=== PATIENT | female | born 1965 | race Caucasian/White ===

== ENCOUNTER 2016-10-14 | Outpatient (CLI) | payer MEDICARE, MEDICAID | END 2016-10-14 06:03 | disposition critical access hospital (66) | CPT/HCPCS: A0425; A0429 ==

== ENCOUNTER 2016-10-14 06:18 | Observation (INO) | payer MEDICARE, MEDICAID ==
[2016-10-14] MEDS ORDERED: oxyCOD/ACETAMIN 5 MG/325 MG TABLET PO STA (07:08)
[2016-10-14] MEDS ORDERED: ONDANSETRON 4 MG/2 ML VIAL IVP STA ×2 (07:08→08:54)
[2016-10-14] MEDS ORDERED: ONDANSETRON 4 MG/2 ML VIAL ONE ×2 (07:14→08:55)
[2016-10-14] MEDS ORDERED: oxyCOD/ACETAMIN 5 MG/325 MG TABLET PO ONE (07:14)
[2016-10-14] MEDS ORDERED: cefTRIAXone 1 GM in SODIUM CHLORIDE 0.9% MINIBAG 100 ML IV STA (07:27)
[2016-10-14] MEDS ORDERED: cefTRIAXone 1 GM VIAL ONE (07:55)
[2016-10-14] MEDS ORDERED: SODIUM CHLORIDE 0.9% 1,000 ML IV ONE (08:13)
[2016-10-14] MEDS ORDERED: POTASSIUM BICARB 25 MEQ TABLET PO STA (08:45)
[2016-10-14] MEDS ORDERED: POTASSIUM CHLOR 10 MEQ/100 ML 100 ML IV ONE (09:44)
[2016-10-14] MEDS ORDERED: PHENYTOIN 100 MG/2 ML VIAL IVP STA (10:00)
[2016-10-14] MEDS ORDERED: HYDROcod/ACETAM 5/325 MG TABLET PO PRN (10:25)
[2016-10-14] MEDS ORDERED: ACETAMINOPHEN 325 MG TABLET PO PRN (10:25)
[2016-10-14] MEDS: POTASSIUM CHLOR 10 MEQ/100 ML 100 ML IV SCH ×12 (10:28→23:01)
[2016-10-14] MEDS ORDERED: BUTALB/ACETAM/CAFF 50/325/40MG TABLET PO PRN ×2 (10:32→14:46)
[2016-10-14] MEDS ORDERED: oxyCODONE 5 MG TABLET PO PRN (10:32)
[2016-10-14] MEDS ORDERED: PHENYTOIN INJ 1,000 MG in SODIUM CHLORIDE 0.9% 100ML 100 ML IV STA (10:36)
[2016-10-14] MEDS ORDERED: FLUoxetine 10 MG CAPSULE PO SCH (11:00)
[2016-10-14] MEDS ORDERED: PHENYTOIN ER 100 MG CAPSULE PO SCH ×2 (11:00→21:00)
[2016-10-14] MEDS ORDERED: CARVEDILOL 3.125 MG TABLET PO SCH (11:00)
[2016-10-14] MEDS ORDERED: amLODIPine 5 MG TABLET PO SCH (11:00)
[2016-10-14] MEDS ORDERED: GEMFIBROZIL 600 MG TABLET PO SCH (12:00)
[2016-10-14] MEDS ORDERED: GABAPENTIN 300 MG CAPSULE PO SCH (13:00)
[2016-10-14] MEDS: HYDROmorphone 1 MG/ML SYRINGE IVP PRN ×2 (13:16→18:41)
[2016-10-14] MEDS: SODIUM CHLORIDE FLUSH 0.9% 10 ML SYRINGE IVP PRN ×2 (13:16→16:29)
[2016-10-14] MEDS: levETIRAcetam 250 MG TABLET PO SCH ×2 (13:22→20:50)
[2016-10-14] MEDS: LEVOTHYROXINE 25 MCG TABLET PO SCH (13:23)
[2016-10-14] MEDS: NS W/20 MEQ KCL 1,000 ML IV SCH (13:31)
[2016-10-14] MEDS: ENOXAPARIN 40 MG/0.4 ML SYRINGE SUBQ SCH (13:32)
[2016-10-14] MEDS: METHOCARBAMOL 500 MG TABLET PO SCH ×3 (14:31→20:50)
[2016-10-14] MEDS ORDERED: fentaNYL 50 MCG PATCH TOP SCH (15:00)
[2016-10-14] MEDS: SODIUM CHLORIDE FLUSH 0.9% 10 ML SYRINGE IVP SCH ×2 (16:23→21:57)
[2016-10-14] MEDS: PREGABALIN 100 MG CAPSULE PO SCH ×2 (16:28→22:46)
[2016-10-14] MEDS: ONDANSETRON 4 MG/2 ML VIAL IVP PRN ×2 (16:28→21:57)
[2016-10-14] MEDS ORDERED: MIN OIL/DIMETHICON/COCONUT OIL 92 GM TUBE TOP PRN (18:35)
[2016-10-14] MEDS: CARVEDILOL 3.125 MG TABLET PO SCH (20:49)
[2016-10-14] MEDS: NYSTATIN CREAM 15 GM TUBE TOP SCH (21:09)
[2016-10-15] MEDS: HYDROmorphone 1 MG/ML SYRINGE IVP PRN
[2016-10-15] MEDS: NS W/20 MEQ KCL 1,000 ML IV SCH ×2 (00:09→06:17)
[2016-10-15] MEDS: ONDANSETRON 4 MG/2 ML VIAL IVP PRN (04:22)
[2016-10-15] MEDS: HYDROcod/ACETAM 10 MG/325 MG TABLET PO PRN ×2 (05:14→09:20)
[2016-10-15] MEDS: LEVOTHYROXINE 25 MCG TABLET PO SCH (06:17)
[2016-10-15] MEDS: PREGABALIN 100 MG CAPSULE PO SCH (06:17)
[2016-10-15] MEDS: SODIUM CHLORIDE FLUSH 0.9% 10 ML SYRINGE IVP SCH (06:31)
[2016-10-15] MEDS ORDERED: PANTOPRAZOLE 40 MG TABLET PO SCH (07:00)
[2016-10-15] MEDS ORDERED: BUTALB/ACETAM/CAFF 50/325/40MG TABLET PO SCH (07:00)
[2016-10-15] MEDS ORDERED: POLYETHYLENE GLYCOL 3350 17 GM PACKET PO SCH (09:00)
[2016-10-15] MEDS ORDERED: LORATADINE 10 MG TABLET PO SCH (09:00)
[2016-10-15] MEDS: METHOCARBAMOL 500 MG TABLET PO SCH (09:16)
[2016-10-15] MEDS: levETIRAcetam 250 MG TABLET PO SCH (09:16)
[2016-10-15] MEDS: CARVEDILOL 3.125 MG TABLET PO SCH (09:18)
[2016-10-15] MEDS: ENOXAPARIN 40 MG/0.4 ML SYRINGE SUBQ SCH (09:19)
[2016-10-15] MEDS: NYSTATIN CREAM 15 GM TUBE TOP SCH (11:44)
== END 2016-10-15 13:00 | disposition home or self-care (01) ==
DX: E87.6 Hypokalemia (principal); G40.909 Epilepsy, unspecified, not intractable, without status epilepticus; E86.0 Dehydration; H66.002 Acute suppurative otitis media without spontaneous rupture of ear drum, left ear; E03.9 Hypothyroidism, unspecified; R11.2 Nausea with vomiting, unspecified; G89.29 Other chronic pain; M54.9 Dorsalgia, unspecified; M25.552 Pain in left hip; L40.9 Psoriasis, unspecified; I67.83 Posterior reversible encephalopathy syndrome; E78.5 Hyperlipidemia, unspecified; G93.89 Other specified disorders of brain; E55.9 Vitamin D deficiency, unspecified; I10 Essential (primary) hypertension; Z85.43 Personal history of malignant neoplasm of ovary; Z90.710 Acquired absence of both cervix and uterus; Z92.21 Personal history of antineoplastic chemotherapy; Z92.3 Personal history of irradiation; Z96.642 Presence of left artificial hip joint; Z86.19 Personal history of other infectious and parasitic diseases
CPT/HCPCS: 36415; 71020; 72100; 80048; 80053; 80177; 80185; 81001; 82550; 82553; 83690; 83735; 84100; 84443; 84484; 85025; 87150; 96361; 96365; 96372; 96375; 96376; 99285; A6250; A9270; G0378; J1170; J1650

== ENCOUNTER 2017-01-22 22:18 | Outpatient (CLI) | payer MEDICARE, MEDICAID | END 2017-01-22 22:19 | disposition critical access hospital (66) | LOC: EMS 22:18 | PROVIDERS: ATTEND Surgery | DX: R10.30 Lower abdominal pain, unspecified (principal); R11.10 Vomiting, unspecified | CPT/HCPCS: A0425; A0429 ==

== ENCOUNTER 2017-01-22 22:34 | Inpatient (IN) | payer MEDICARE, MEDICAID ==
[2017-01-22] MEDS ORDERED: ONDANSETRON 4 MG/2 ML VIAL ONE (22:39)
[2017-01-22] MEDS ORDERED: MORPHINE 2 MG/ML SYRINGE IVP STA (22:41)
[2017-01-22] MEDS ORDERED: SODIUM CHLORIDE 0.9% 1,000 ML IV ONE (22:41)
[2017-01-22] MEDS ORDERED: ONDANSETRON 4 MG/2 ML VIAL IVP STA (22:41)
[2017-01-22] MEDS ORDERED: MORPHINE 2 MG/ML SYRINGE ONE (23:08)
[2017-01-22 23:18] LABS: BASOPHILS # (AUTO) 0.1 10^3/uL (0.0-0.1); BASOPHILS % (AUTO) 0.6 %; EOSINOPHILS # (AUTO) 0.3 10^3/uL (0.0-0.7); EOSINOPHILS % (AUTO) 1.9 %; HCT - HEMATOCRIT 43.6 % (37.0-47.0); HGB - HEMOGLOBIN 14.7 g/dL (12.0-16.0); LYMPHOCYTES # (AUTO) 2.5 10^3/uL (1.5-3.5); LYMPHOCYTES % (AUTO) 15.5 %; MEAN CORPUSCULAR HEMOGLOBIN 29.7 pg (27.0-31.0); MEAN CORPUSCULAR HGB CONC 33.8 g/dL (32.0-36.0); MEAN CORPUSCULAR VOLUME 87.8 fL (81.0-99.0); MEAN PLATELET VOLUME 8.2 fL (7.9-10.8); MONOCYTES # (AUTO) 0.8 10^3/uL (0.0-1.0); MONOCYTES % (AUTO) 5.1 %; NEUTROPHILS # (AUTO) 12.4 10^3/uL (1.5-6.6); NEUTROPHILS % (AUTO) 76.9 %; RED BLOOD COUNT 4.97 10^6/uL (4.20-5.40); RED CELL DISTRIBUTION WIDTH 12.9 % (12.0-15.0); UNCORRECTED WHITE BLOOD COUNT 16.2 x10^3/uL; WHITE BLOOD COUNT 16.2 x10^3/uL (4.8-10.8)
[2017-01-22 23:33] LABS: ALBUMIN/GLOBULIN RATIO 1.3 (1.0-2.2); BILIRUBIN,TOTAL 0.7 mg/dL (0.2-1.0); CALCIUM 9.8 mg/dL (8.5-10.3); CREATININE 0.7 mg/dL (0.4-1.0); PHOSPHORUS 3.6 mg/dL (2.5-4.6); POTASSIUM 3.7 mmol/L (3.5-5.0); TOTAL PROTEIN 7.7 g/dL (6.7-8.2)
[2017-01-22 23:49] LABS: BILIRUBIN,URINE NEGATIVE (NEGATIVE)
[2017-01-22 23:54] LABS: UA w/ MICROSCOPIC CHARGE YES
[2017-01-22 23:57] LABS: UR CULTURE IF IND INDICATED; WBC,URINE >25 /HPF (0-5)
[2017-01-23] MEDS ORDERED: CEPHALEXIN 250 MG CAPSULE PO STA (01:26)
[2017-01-23] MEDS ORDERED: CEPHALEXIN 250 MG CAPSULE PO ONE (01:35)
[2017-01-23] MEDS ORDERED: ONDANSETRON ODT 4 MG TABLET TL STA (01:39)
[2017-01-23] MEDS ORDERED: ONDANSETRON ODT 4 MG TABLET ONE (01:39)
--- NOTE | 2017-01-23 01:43 | CT Preliminary Report ---
Exam: CT Abdomen/Pelvis W/O IMPRESSION: 1. 3 mm nonobstructing superior left renal stone. No right-sided renal stones. No obstructing uretera l stones. 2. Gallbladder and uterus are surgically absent. 3. Cluster of mildly prominent small bowel loops measuring up to 2.8 cm the left mid abdomen. No foca l transition point. Findings are nonspecific but could represent an ileus or early obstruction. [facility] SITE ID: [id number]
[2017-01-23] MEDS ORDERED: BUTALB/ACETAM/CAFF 50/325/40MG TABLET PO PRN (02:02)
[2017-01-23] MEDS ORDERED: traZODone 50 MG TABLET PO PRN (02:02)
[2017-01-23] MEDS ORDERED: ACETAMINOPHEN 325 MG TABLET PO PRN (02:03)
[2017-01-23] MEDS ORDERED: TEMAZEPAM 15 MG CAPSULE PO PRN (02:03)
[2017-01-23] MEDS ORDERED: PROMETHAZINE 25 MG/1 ML VIAL IM PRN (02:03)
--- NOTE | 2017-01-23 02:39 | ED Physician Documentation ---
PD HPI ABD PAIN - Stated complaint Stated Complaint: ABD PAIN - Chief complaint Chief Complaint: Abd Pain - History obtained from History obtained from: Patient, EMS - History of Present Illness Timing - onset: How many hours ago (2) Timing - details: Abrupt onset, Still present Quality: Cramping, Aching, Sharp Location: Epigastric, Suprapubic Worsened by: Eating, Palpation Associated symptoms: Nausea, Vomiting. No: Fever, Hematemesis, Diarrhea, Constipation Similar symptoms before: Work up / diagnostics, Treatment Recently seen: Not recently seen - Additional information Additional information: Patient is a 51 year old female with mulitple comorbidities including persistent osteo, ovarian cancer and status post hysterectomy, appendectomy and cholecystectomy who is currently on day 4 of antibiotics for uti. Patient came to the emergency department today for abdominal pain. Patient states that the pain started about an hour ago and she has had four episodes of vomiting. Patient states that she had one normal bowel movement earlier in the day. Review of Systems Constitutional: denies: Fever, Chills Eyes: denies: Loss of vision Ears: denies: Ear pain, Drainage/discharge Nose: denies: Rhinorrhea / runny nose, Congestion, Epistaxis Throat: denies: Dental pain / toothache, Oral lesions / sores Cardiac: denies: Chest pain / pressure, Palpitations Respiratory: denies: Cough, Wheezing GI: reports: Abdominal Pain, Nausea, Vomiting. denies: Constipation, Diarrhea : reports: Dysuria, Frequency Skin: denies: Rash, Lesions Musculoskeletal: denies: Neck pain, Back pain, Extremity pain Neurologic: denies: Generalized weakness, Focal weakness Psychiatric: denies: Depressed, Suicidal PD PAST MEDICAL HISTORY - Past Medical History Cardiovascular: High cholesterol Respiratory: Asthma, Pneumonia Neuro: CVA, Headache/migraine, Head injury, Seizure disorder, Other Endocrine/Autoimmune: HyPOthyroidism, Other GI: C.difficile BOBBIN WASHER: None : Renal insuffiency, Kidney stones HEENT: None Psych: Depression Musculoskeletal: Osteoarthritis, Chronic back pain, Other Derm: Other drug resistant infections - Past Surgical History Past Surgical History: Yes General: Appendectomy Ortho: Hip replacement, Spine surgery /BOBBIN WASHER: 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, Oophrectomy - Present Medications Home Medications: Ambulatory Orders Medication Instructions Recorded Confirmed Butalb/Acetam/Caff 50/325/40 1 each PO Q6H PRN 04/04/13 01/23/17 [Fioricet] Cetirizine HCl 10 mg PO DAILY PRN 10/14/16 01/23/17 Fluticasone [Flonase] 1 spray LINDSEY DAILY 10/14/16 01/23/17 Oxycodone HCl/Acetaminophen 0.25 - 1 tab PO Q4H PRN 10/14/16 01/23/17 [Percocet 5-325 mg Tablet] traZODone [Desyrel] 50 - 150 mg PO QPM PRN 10/14/16 01/23/17 Acetaminophen [Tylenol] 650 mg PO Q4HR PRN #0 tablet 10/15/16 01/23/17 Carvedilol [Coreg] 6.25 mg PO BID tablet 10/15/16 01/23/17 Methocarbamol [Robaxin] 750 mg PO QID tablet 10/15/16 01/23/17 Phenytoin [Dilantin] 400 mg PO QPM capsule 10/15/16 01/23/17 Polyethylene Glycol 3350 [Miralax] 17 gm PO DAILY packet 10/15/16 01/23/17 Pregabalin [Lyrica] 100 mg PO TID capsule 10/15/16 01/23/17 fentaNYL 50 MCG PATCH [Duragesic 1 patch TOP Q72H patch 10/15/16 01/23/17 50mcg patch] levETIRAcetam [Keppra] 1,500 mg PO BID tablet 10/15/16 01/23/17 Bromelains 2 tab PO DAILY 01/23/17 01/23/17 Chlorthalidone 25 mg ORAL DAILY 01/23/17 01/23/17 FLUoxetine [PROzac] 20 mg PO DAILY 01/23/17 01/23/17 Gemfibrozil 600 mg PO BID 01/23/17 01/23/17 Loperamide [Imodium] 2 mg PO PRN 01/23/17 Omeprazole 20 mg ORAL DAILY 01/23/17 01/23/17 Omeprazole [PriLOSEC] 20 mg PO DAILY 01/23/17 01/23/17 Prochlorperazine Maleate 8 mg PO TID 01/23/17 01/23/17 [Compazine] amLODIPine [Norvasc] 10 mg PO DAILY 01/23/17 01/23/17 diphenhydrAMINE [Benadryl] 25 mg PO ONCE 01/23/17 01/23/17 - Allergies Allergies/Adverse Reactions: Allergies Allergy/AdvReac Type Severity Reaction Status Date / Time Penicillins Allergy Severe Respiratory Verified 01/22/17 22:36 bacitracin Allergy Mild Hives Verified 01/22/17 22:36 [From Neosporin ([id number])] bacitracin zinc * Allergy Mild Itching Verified 01/22/17 22:36 [From Neosporin ([id number])] neomycin sulfate * Allergy Mild Itching Verified 01/22/17 22:36 [From Neosporin ([id number])] venom-honey bee Allergy Unknown Verified 01/22/17 22:36 [bee venom (honey bee)] ciprofloxacin AdvReac Emesis Verified 01/22/17 22:36 - Social History Does the pt smoke?: No Smoking Status: Former smoker Does the pt drink ETOH?: No Does the pt have substance abuse?: No - Immunizations Immunizations are current?: Yes - POLST Patient has POLST: No POLST Status: Full Code PD ED PE NORMAL - Vitals Vital signs reviewed: Yes - General General: Alert and oriented X 3, Well developed/nourished - HEENT HEENT: Atraumatic, PERRL - Neck Neck: Supple, no meningeal sign, No JVD - Cardiac Cardiac: RRR, No murmur - Respiratory Respiratory: No respiratory distress - Derm Derm: Warm and dry - Extremities Extremities: No deformity, No tenderness to palpate, No calf tenderness / cord - Neuro Neuro: Alert and oriented X 3, No motor deficit, No sensory deficit, Normal speech - Psych Psych: Normal mood, Normal affect PD ED PE EXPANDED - General General: In Pain - Abdomen Abdomen: Tender to palpation, Epigastric, Periumbilical, Surgical scars. No: Rebound, Guarding - Derm Derm: Rash (consistent with psoriasis), Other (very tough skin, with multiple patches) Results - Vitals Vitals: Vital Signs - 24 hr 01/22/17 01/22/17 22:36 23:52 Temperature 36.3 C L Heart Rate 59 L 57 L Respiratory 18 18 Rate Blood Pressure 145/77 H 146/76 H O2 Saturation 100 100 Oxygen O2 Source Room air - Labs Labs: Laboratory Tests 01/22/17 01/22/1717 23:09 23:09 23:09 WBC 16.2 H RBC 4.97 Hgb 14.7 Hct 43.6 MCV 87.8 MCH 29.7 MCHC 33.8 RDW 12.9 Plt Count 353 MPV 8.2 Neut # 12.4 H Lymph # 2.5 [place] # 0.8 Eos # 0.3 Baso # 0.1 Absolute Nucleated RBC 0.00 Nucleated RBCs 0.0 Sodium 136 Potassium 3.7 Chloride 100 L Carbon Dioxide 25 Anion Gap 11.0 BUN 25 H Creatinine 0.7 Estimated GFR (MDRD) 88 L Glucose 135 H Lactic Acid Calcium 9.8 Phosphorus 3.6 Magnesium 2.0 Total Bilirubin 0.7 AST 36 ALT 34 Alkaline Phosphatase 121 Troponin I < 0.04 Total Protein 7.7 Albumin 4.4 Globulin 3.3 Albumin/Globulin Ratio 1.3 Lipase 46 Urine Color Urine Clarity Urine pH Ur Specific Nabb Urine Protein Urine Glucose (UA) Urine Ketones Urine Occult Blood Urine Nitrite Urine Bilirubin Urine Urobilinogen Ur Leukocyte Esterase Urine RBC Urine WBC Ur Squamous Epith Cells Urine Bacteria Urine Casts Ur Microscopic Review Urine Culture Comments 01/22/17 01/22/17 23:09 23:34 WBC RBC Hgb Hct MCV MCH MCHC RDW Plt Count MPV Neut # Lymph # [place] # Eos # Baso # Absolute Nucleated RBC Nucleated RBCs Sodium Potassium Chloride Carbon Dioxide Anion Gap BUN Creatinine Estimated GFR (MDRD) Glucose Lactic Acid 1.4 Calcium Phosphorus Magnesium Total Bilirubin AST ALT Alkaline Phosphatase Troponin I Total Protein Albumin Globulin Albumin/Globulin Ratio Lipase Urine Color YELLOW Urine Clarity HAZY Urine pH 6.0 Ur Specific Nabb 1.020 Urine Protein 30 H Urine Glucose (UA) NEGATIVE Urine Ketones NEGATIVE Urine Occult Blood SMALL H Urine Nitrite POSITIVE H Urine Bilirubin NEGATIVE Urine Urobilinogen 1 (NORMAL) Ur Leukocyte Esterase SMALL H Urine RBC 6-10 H Urine WBC >25 H Ur Squamous Epith Cells FEW Squamous Urine Bacteria Moderate H Urine Casts 3-5 Hyaline Casts Ur Microscopic Review INDICATED Urine Culture Comments INDICATED - Rads (name of study) abdomen and pelvis Radiology: Final report received (findings worsesome for ileus or early sbo), See rad report PD MEDICAL DECISION MAKING - ED course Complexity details: reviewed old records, reviewed results, re-evaluated patient , considered differential, d/w patient, d/w family, d/w internet marketing consultant ED course: Patient was seen and examined at bedside. IV access was gained and labs were drawn. Patient was treated with morphine, fluids and zofran with good relief. patient's urine was consistent with a urinary tract infection, but it would not explain the amount of pain the patient was in. Patient was sent for imaging. when patient returned the results were reviewed. Patient was found to have a partial sbo. Hospitalist was contacted and the case was discussed with him. Patient was admitted under his service for further evaluation and care. Departure - Departure Disposition: ED Place in Observation Clinical Impression: Urinary tract infection, SBO (small bowel obstruction) Condition: Good Discharge Date/Time: 01/23/17 03:33
[2017-01-23] MEDS ORDERED: oxyCOD/ACETAMIN 5 MG/325 MG TABLET PO STA (02:47)
[2017-01-23] MEDS ORDERED: HYDROmorphone 1 MG/ML SYRINGE IM SCH (02:59)
[2017-01-23] MEDS ORDERED: ONDANSETRON 4 MG/2 ML VIAL ONE (03:15)
[2017-01-23] MEDS ORDERED: MORPHINE 2 MG/ML SYRINGE ONE (03:15)
[2017-01-23] MEDS: ONDANSETRON 4 MG/2 ML VIAL IVP PRN ×2 (03:17→14:42)
[2017-01-23] MEDS: MORPHINE 2 MG/ML SYRINGE IVP PRN ×5 (03:17→21:34)
--- NOTE | 2017-01-23 03:18 | HISTORY & PHYSICAL EXAMINATION ---
Chief Complaint - Chief Complaint Chief Complaint: abdominal pain History of Present Illness - Admitted From Admitted From:: emergency department - History Obtained From Records Reviewed: yes History obtained from: patient and medical records Exam Limitations: none - History of Present Illness HPI Comment/Other: The patient is a very unfortunate 51-year-old female with an extensive past medical history including seizure disorder, hypertension, history of ovarian cancer, status post hysterectomy and bilateral oophorectomy in 1995 followed by chemotherapy and radiation, left hip replacement with complication of multiple infections, including infected hardware requiring removal and two further hip replacements with osteomyelitis and long-term antibiotics now off antibiotics and non weight bearing on left, hypothyroidism, chronic pain disorder, psoriasis , history of breast syndrome, history of occipital lobe masses for which she follows with neurology at [facility] who presented to the emergency department with a chief complaint of abdominal pain. She states that she's been having chronic nausea and vomiting for which she has been seeing Dr. Valenzuela at [facility] [place] and has undergone an EGD which did show stomach ulcers and is still undergoing further evaluation. She states that she was in her normal state of health until 5:30 this evening when she states that she started having an acute episode of abdominal pain. She states that the pain is located in the mid abdomen and was associated with nausea and vomiting. She is episodes of vomiting prior to coming to the emergency department. She states the vomitus initially appeared to look like food and then became more bile appearing. She denied having any blood in the vomitus she also denied any coffee -ground emesis. She denies any fevers or chills today. She states that the pain was constant sharp and 10 out of 10 when she finally decided to come into the emergency department. She states that she did have a normal bowel movement yesterday but has not had any bowel movements today. She denies any recent diarrhea. She states that she did see her primary care physician 4 days ago and at that time was diagnosed with a urinary tract infection for which she has been on Levaquin. On presentation to the emergency department the patient was afebrile slightly hypertensive but otherwise vital signs were within normal limits. The patient continued to be in severe pain and required IV Dilaudid in the emergency department with which pain was controlled for a short period of time but the patient continued to have pain 1 the medication wore off. She also continued to be nauseous and required IV antiemetics including Zofran in the emergency department. The patient was quite tender on examination and appear to have some abdominal distention. The patient's lab work a leukocytosis of 16.2, then a lactic acid and slight hypochloremia but otherwise her electrolytes were within normal limits. The patient underwent a CT scan of her abdomen the CT showed a 3 mm nonobstructing superior left renal stone with a cluster of mildly prominent small bowel loops measuring up to 2.8 cm in the left mid abdomen with no focal transition point which could represent ileus or early obstruction. Given the patient's clinical presentation and CT findings it appeared the patient likely has been thoroughly obstruction and was placed in observation for medical management. Review of Systems - Constitutional Constitutional: reports: Poor appetite. denies: Fatigue, Fever, Chills, Malaise , Weakness, Diaphoresis, Night sweats, Weight gain, Weight loss - Eyes Eyes: denies: Pain, Irritation, Amaurosis, Blurred vision, Spots in vision, Field loss, Vision loss, Dipolpia, Corrective lenses, Other - Ears, Nose & Throat Ears, Nose & Throat: denies: Ear pain, Hearing loss, Hearing aids, Tinnitus, Vertigo, Nasal pain, Nasal discharge, Nosebleeds, Nasal obstruction, Nasal congestion, Postnasal drainage, Dentures, Sore throat, Hoarseness, Mouth lesions , Bleeding gums, Dental decay, Dental pain, Other - Cardiovascular Cariovascular: denies: Irregular heart rate, Palpitations, Chest pain, Edema, Lightheadedness, Syncope, Exertional dyspnea, Decr. exercise tolerance, Orthopnea, Other - Respiratory Respiratory: denies: Cough, Sputum production, Wheezing, Snoring, Hemoptysis, Orthopnea, SOB at rest, SOB with exertion, Apnea, Stridor, Pleuritic pain, Other - Gastrointestinal Gastrointestinal: reports: Abdominal pain, Abdominal distention, Nausea, Vomiting, Bile emesis, Poor appetite. denies: Constipation, Diarrhea, Change in bowel habits, Rectal bleeding, Black stools, Bloody stools, Galen blood emesis, Coffee grounds emesis, Bloating - Genitourinary Genitourinary: reports: Frequency. denies: Dysuria, Urgency, Hematuria, Incontinence - Musculoskeletal Musculoskeletal: reports: Back pain, Joint pain (chronic hips bilateral) - Integumentary Integumentary: reports: Dryness, Other (psoriasis). denies: Rash, Pruritis - Neurological Neurological: denies: General weakness, Focal weakness, Headache, Dizziness, Numbness, Memory problems, Pre-existing deficit - Psychiatric Psychiatric: denies: Depression, Anxiety - Endocrine Endocrine: denies: Polyuria, Polydypsia, Polyphagia, Intolerance to cold, Intolerance to heat - Hematologic/Lymphatic Hematologic/Lymphatic: denies: Anemia, Bruising, Petechiae, Blood clots, Lymphadenopathy History - Past Medical History Cardiovascular: reports: Hypertension, High cholesterol Respiratory: reports: Asthma, Pneumonia Neuro: reports: CVA, Headache/migraine, Head injury, Seizure disorder, Other ( History of occipital lobe masses, PRES syndrome) Endocrine/Autoimmune: reports: HyPOthyroidism, Other GI: reports: Ulcers, C.difficile [employer]EL[employer]: reports: Ovarian cancer (s/p hysterectomy and bilateral oopherectomy followed by chemo and radiation in 1995) : reports: Kidney stones HEENT: reports: None Psych: reports: Depression Musculoskeletal: reports: Osteoarthritis (Hip replacement left), Chronic back pain (L4,L5,S1 spinal fusion), Other (Osteomyelitis Chronic of left hip) Derm: reports: Psoriasis MRSA Hx?: No - Past Surgical History General: reports: Appendectomy Ortho: reports: Hip replacement, Spine surgery (L4-S1 spinal fusion) /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 She is living with her daughter and [place]. 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 She was using a walker and and has been nonweightbearing on the left side since her surgeries. - Substance History Use: Uses substance without health or social issues: NONE Abuse: Recurrent use of substance despite neg consequences: NONE Dependence: Experiences withdrawal or developed tolerances: NONE - POLST Patient has POLST: No POLST Status: Full Code Meds/Allgy - Home Medications Home Medications: Ambulatory Orders Medication Instructions Recorded Confirmed Butalb/Acetam/Caff 50/325/40 1 each PO Q6H PRN 04/04/13 01/23/17 [Fioricet] Cetirizine HCl 10 mg PO DAILY PRN 10/14/16 01/23/17 Fluticasone [Flonase] 1 spray LINDSEY DAILY 10/14/16 01/23/17 Oxycodone HCl/Acetaminophen 0.25 - 1 tab PO Q4H PRN 10/14/16 01/23/17 [Percocet 5-325 mg Tablet] traZODone [Desyrel] 50 - 150 mg PO QPM PRN 10/14/16 01/23/17 Acetaminophen [Tylenol] 650 mg PO Q4HR PRN #0 tablet 10/15/16 01/23/17 Carvedilol [Coreg] 6.25 mg PO BID tablet 10/15/16 01/23/17 Methocarbamol [Robaxin] 750 mg PO QID tablet 10/15/16 01/23/17 Phenytoin [Dilantin] 400 mg PO QPM capsule 10/15/16 01/23/17 Polyethylene Glycol 3350 [Miralax] 17 gm PO DAILY packet 10/15/16 01/23/17 Pregabalin [Lyrica] 100 mg PO TID capsule 10/15/16 01/23/17 fentaNYL 50 MCG PATCH [Duragesic 1 patch TOP Q72H patch 10/15/16 01/23/17 50mcg patch] levETIRAcetam [Keppra] 1,500 mg PO BID tablet 10/15/16 01/23/17 Bromelains 2 tab PO DAILY 01/23/17 01/23/17 Chlorthalidone 25 mg ORAL DAILY 01/23/17 01/23/17 FLUoxetine [PROzac] 20 mg PO DAILY 01/23/17 01/23/17 Gemfibrozil 600 mg PO BID 01/23/17 01/23/17 Loperamide [Imodium] 2 mg PO PRN 01/23/17 Omeprazole 20 mg ORAL DAILY 01/23/17 01/23/17 Omeprazole [PriLOSEC] 20 mg PO DAILY 01/23/17 01/23/17 Prochlorperazine Maleate 8 mg PO TID 01/23/17 01/23/17 [Compazine] amLODIPine [Norvasc] 10 mg PO DAILY 01/23/17 01/23/17 diphenhydrAMINE [Benadryl] 25 mg PO ONCE 01/23/17 01/23/17 - Allergies Allergies/Adverse Reactions: Allergies Allergy/AdvReac Type Severity Reaction Status Date / Time Penicillins Allergy Severe Respiratory Verified 01/22/17 22:36 bacitracin Allergy Mild Hives Verified 01/22/17 22:36 [From Neosporin ([id number])] bacitracin zinc * Allergy Mild Itching Verified 01/22/17 22:36 [From Neosporin ([id number])] neomycin sulfate * Allergy Mild Itching Verified 01/22/17 22:36 [From Neosporin ([id number])] venom-honey bee Allergy Unknown Verified 01/22/17 22:36 [bee venom (honey bee)] ciprofloxacin AdvReac Emesis Verified 01/22/17 22:36 Exam - Vital Signs Reviewed Vital Signs: Yes - Physical Exam General Appearance: positive: Alert, Moderate distress (abdominal pain and nausea) Eyes Bilateral: positive: Normal inspection, PERRL, EOMI, No lid inflammation, Conjunctivae nml, No scleral icterus ENT: positive: ENT inspection nml, Pharynx nml, Dry mucous membranes. negative : Purulent nasal drainage, Pharyngeal erythema, Oral lesions Neck: positive: Nml inspection, Thyroid nml, No JVD, Trachea midline. negative : Thyromegaly, Lymphadenopathy (R), Lymphadenopathy (L) Respiratory: positive: Chest non-tender, No respiratory distress, Breath sounds nml. negative: Wheezes, Rales, Rhonchi Cardiovascular: positive: Regular rate & rhythm, No murmur, No gallop Peripheral Pulses: positive: 2+ Abdomen: positive: No organomegaly, Tenderness (mid abdomen just below the umbilicus), Guarding (voluntary), Abnml bowel sounds (hyperactive), Other ( distended mildly). negative: Rebound, Hepatomegaly Back: positive: Nml inspection. negative: CVA tenderness (R), CVA tenderness (L ) Skin: positive: Color nml, Skin rash (psoriatic lesions). negative: Cyanosis, Diaphoresis, Pallor Extremities: positive: No pedal edema, Other (Left hip limited ROM, non weight bearing) Neurologic/Psychiatric: positive: Oriented x3, CN's nml (2-12), Motor nml, Sensation nml, Mood/affect nml Conclusion/Plan - Problem List (1) Abdominal pain Conclusion/Plan: Patient presented with an acute onset of abdominal pain severe in the mid abdomen with associated nausea and vomiting but no fevers or chills. Patient had last normal bowel movement one day earlier no bowel movements today and had mild abdominal distention. Patient had leukocytosis with WBC of 16.2 but no fevers or chills CT of the abdomen revealed mildly prominent small bowel loops measuring up to 2.8 cm in the left mid abdomen with no focal transition point likely representing early obstruction. Patient was requiring IV pain medication and IV emetics for pain control and nausea control. Likely etiology of patient's abdominal pain is a small bowel obstruction given her extensive history of surgeries likely due to adhesions however it appears to be very early on there for there's no distinct transition point seen on the CT scan. Patient could also have gastroenteritis however was not having any fevers or chills. Plan: N.p.o. IV fluids IV pain medication IV antiemetics Placed NG tube if vomiting persists Plan get surgical consult if the patient's symptoms do not improve with medical treatment (2) Urinary tract infection Conclusion/Plan: Patient was diagnosed with a urinary tract infection 4 days earlier and was started on Levaquin but continues to have positive urinary symptoms and grossly positive UA. Plan: The patient will be started on IV ceftriaxone while she is hospitalized We will await urine cultures to de-escalate antibiotics. Qualifiers: Urinary tract infection type: acute cystitis (3) Hypertension Conclusion/Plan: blood pressure elevated on presentation likely secondary to pain Will continue home medications Monitor blood pressure pain control (4) Chronic left hip pain Conclusion/Plan: Patient on chronic pain medication at home including febrile patch and Percocet Patient's left hip pain controlled however on presentation she is uncontrolled abdominal pain. We'll continue home dose of fentanyl We'll place on IV Dilaudid and by mouth oxycodone while hospitalized (5) Hypothyroidism Conclusion/Plan: continue home dose of Synthroid Check TSH (6) Hyperlipidemia Conclusion/Plan: continue home dose of gemfibrozil stable (7) Seizure disorder Conclusion/Plan: decreased seizures threshold secondary to UTI Continue home dose of Keppra and Dilantin Monitor closely (8) Prophylactic use of low molecular weight heparin for venous thromboembolism Conclusion/Plan: placed on Lovenox while hospitalized - Lab Results Lab results reviewed: Yes Fish Bones: 01/22/17 23:01/22/17 23:09 - Diagnostic Imaging Results Diagnostic Imaging Results: positive: Final report reviewed - EKG Results EKG Interpreted Independently: Yes Issues/Core Measures - Anticipated LOS Anticipated Stay Length: Less than 2 midnights - DVT/VTE - Prophylaxis VTE/DVT Prophylaxis med ordered at admit?: Yes
[2017-01-23] MEDS: SODIUM CHLORIDE 0.9% 1,000 ML IV SCH ×3 (03:52→21:39)
[2017-01-23] MEDS: fentaNYL 50 MCG PATCH TOP SCH (04:44)
[2017-01-23] MEDS: PROCHLORPERAZINE 10 MG/2 ML VIAL IVP PRN ×2 (04:44→17:54)
[2017-01-23 06:03] LABS: BASOPHILS # (AUTO) 0.1 10^3/uL (0.0-0.1); BASOPHILS % (AUTO) 0.4 %; EOSINOPHILS # (AUTO) 0.1 10^3/uL (0.0-0.7); EOSINOPHILS % (AUTO) 0.9 %; HGB - HEMOGLOBIN 13.1 g/dL (12.0-16.0); LYMPHOCYTES # (AUTO) 3.1 10^3/uL (1.5-3.5); LYMPHOCYTES % (AUTO) 23.8 %; MEAN CORPUSCULAR HEMOGLOBIN 29.4 pg (27.0-31.0); MEAN CORPUSCULAR HGB CONC 33.6 g/dL (32.0-36.0); MEAN CORPUSCULAR VOLUME 87.4 fL (81.0-99.0); MEAN PLATELET VOLUME 8.7 fL (7.9-10.8); MONOCYTES # (AUTO) 0.8 10^3/uL (0.0-1.0); MONOCYTES % (AUTO) 6.2 %; NEUTROPHILS # (AUTO) 8.8 10^3/uL (1.5-6.6); NEUTROPHILS % (AUTO) 68.7 %; NUCLEATED RED BLOOD CELLS AUTO 0.1 /100WBC; RED BLOOD COUNT 4.46 10^6/uL (4.20-5.40); RED CELL DISTRIBUTION WIDTH 13.2 % (12.0-15.0); UNCORRECTED WHITE BLOOD COUNT 12.9 x10^3/uL; WHITE BLOOD COUNT 12.9 x10^3/uL (4.8-10.8)
[2017-01-23 06:10] LABS: ALBUMIN/GLOBULIN RATIO 1.4 (1.0-2.2); BILIRUBIN,TOTAL 0.5 mg/dL (0.2-1.0); CALCIUM 8.9 mg/dL (8.5-10.3); CREATININE 0.6 mg/dL (0.4-1.0); MAGNESIUM 1.9 mg/dL (1.7-2.8); PHOSPHORUS 3.5 mg/dL (2.5-4.6); POTASSIUM 3.2 mmol/L (3.5-5.0); TOTAL PROTEIN 6.8 g/dL (6.7-8.2)
[2017-01-23] MEDS: PANTOPRAZOLE 40 MG TABLET PO SCH (06:41)
[2017-01-23] MEDS: PREGABALIN 100 MG CAPSULE PO SCH ×3 (06:41→21:29)
[2017-01-23] MEDS: SODIUM CHLORIDE FLUSH 0.9% 10 ML SYRINGE IVP SCH ×3 (06:44→21:37)
[2017-01-23] MEDS ORDERED: LEVOTHYROXINE 25 MCG TABLET PO SCH (07:00)
[2017-01-23] MEDS: METHOCARBAMOL 500 MG TABLET PO SCH ×4 (07:58→21:29)
[2017-01-23] MEDS: FLUTICASONE NASAL SPRAY NAS SCH (07:58)
[2017-01-23] MEDS: ENOXAPARIN 40 MG/0.4 ML SYRINGE SUBQ SCH (07:58)
[2017-01-23] MEDS: POLYETHYLENE GLYCOL 3350 17 GM PACKET PO SCH (07:59)
[2017-01-23] MEDS: LORATADINE 10 MG TABLET PO SCH (07:59)
[2017-01-23] MEDS: CARVEDILOL 3.125 MG TABLET PO SCH ×2 (08:14→21:28)
[2017-01-23] MEDS: cefTRIAXone 1 GM in SODIUM CHLORIDE 0.9% MINIBAG 100 ML IV SCH (08:14)
[2017-01-23] MEDS: levETIRAcetam 250 MG TABLET PO SCH ×2 (08:14→21:27)
[2017-01-23] MEDS: NYSTATIN CREAM 15 GM TUBE TOP SCH ×2 (09:23→21:38)
[2017-01-23] MEDS: oxyCODONE 5 MG TABLET PO PRN ×3 (11:17→21:28)
--- NOTE | 2017-01-23 12:37 | CT Report ---
EXAM: CT ABDOMEN AND PELVIS (CT KUB) EXAM DATE: 01/23/2017 01:00 AM. CLINICAL HISTORY: Lower abdominal pain, leukocytosis, vomiting. COMPARISONS: None. TECHNIQUE: Routine axial helical CT imaging was performed through the abdomen and pelvis without IV c ontrast. Reconstructions: Coronal and sagittal. In accordance with CT protocol optimization, one or more of the following dose reduction techniques w ere utilized for this exam: automated exposure control, adjustment of mA and/or KV based on patient s ize, or use of iterative reconstructive technique. FINDINGS: Lung Bases: Small to moderate hiatal hernia. Lung bases are clear. Right Kidney/Ureter: No stones, hydronephrosis, or hydroureter. No perinephric fat stranding. Left Kidney/Ureter: 3 mm left upper pole nonobstructing stone. Distal left ureter not well-seen due t o streak artifacts from previous hip replacement. No hydronephrosis, hydroureter or perinephric fat s tranding. Other Solid Organs: Noncontrast images of the solid organs are grossly unremarkable. Gallbladder/Bile Ducts: Gallbladder is absent. No common bile duct dilation noted. Peritoneal Cavity: There are several mildly prominent small bowel loops measuring up to 2.8 cm in the left mid abdomen. The more proximal bowel and distal bowel are decompressed. No focal transition is noted. Pelvic Organs: Normal bladder. No bladder stones or calcifications. The uterus is absent. No pelvic m ass or adenopathy. Vasculature: Unremarkable. Other: Previous L5-S1 disk fusion. Previous L5 laminectomy. Status post left hip arthroplasty revisio n stabilized by cerclage wires. No new osteoblastic or osteolytic lesions. IMPRESSION: 1. 3 mm nonobstructing superior left renal stone. No right-sided renal stones. No obstructing uretera l stones. 2. Gallbladder and uterus are surgically absent. 3. Cluster of mildly prominent small bowel loops measuring up to 2.8 cm in the left mid abdomen. No f ocal transition point. Findings are nonspecific but could represent an ileus or early obstruction. [facility] Referring Provider Line: [phone] SITE ID: [id number]
[2017-01-23] MEDS: BUTALB/ACETAM/CAFF 50/325/40MG TABLET PO PRN (15:45)
[2017-01-23] MEDS ORDERED: TAMSULOSIN 0.4 MG CAPSULE PO PRN (17:30)
--- NOTE | 2017-01-23 17:31 | XRAY Preliminary Report ---
Exam: XR Chest for Line Placement IMPRESSION: Right arm PICC line tip overlies right atrium, 2-2.5 cm from cavoatrial junction. Case discussed with Bo Tinoco on day of exam at 5:28 PM. [facility] SITE ID: [id number]
--- NOTE | 2017-01-23 17:33 | XRAY Report ---
EXAM: CHEST RADIOGRAPHY EXAM DATE: 01/23/2017 05:21 PM. CLINICAL HISTORY: PICC @ R Basilic Vein. COMPARISON: Chest x-ray 10/14/2016. TECHNIQUE: 1 view. FINDINGS: Lungs/Pleura: No focal opacities evident. No pleural effusion. No pneumothorax. Mediastinum: Within exam limitations, cardiomediastinal contour is normal. Other: Right arm PICC line tip overlies right atrium, 2-2.5 cm from cavoatrial junction. IMPRESSION: Right arm PICC line tip overlies right atrium, 2-2.5 cm from cavoatrial junction. Case discussed with Bo Tinoco on day of exam at 5:28 PM. [facility] Referring Provider Line: [phone] SITE ID: [id number]
[2017-01-23] MEDS: PHENYTOIN ER 100 MG CAPSULE PO SCH (21:27)
[2017-01-24] MEDS: MORPHINE 2 MG/ML SYRINGE IVP PRN ×5 (00:06→18:02)
[2017-01-24] MEDS: SODIUM CHLORIDE 0.9% 1,000 ML IV SCH ×3 (03:52→21:00)
[2017-01-24] MEDS: BUTALB/ACETAM/CAFF 50/325/40MG TABLET PO PRN ×2 (05:13→21:03)
[2017-01-24] MEDS: oxyCODONE 5 MG TABLET PO PRN ×4 (05:14→21:01)
[2017-01-24] MEDS: SODIUM CHLORIDE FLUSH 0.9% 10 ML SYRINGE IVP SCH ×3 (05:22→21:03)
[2017-01-24 06:10] LABS: BASOPHILS # (AUTO) 0.1 10^3/uL (0.0-0.1); BASOPHILS % (AUTO) 0.8 %; EOSINOPHILS # (AUTO) 0.3 10^3/uL (0.0-0.7); EOSINOPHILS % (AUTO) 3.9 %; HCT - HEMATOCRIT 35.8 % (37.0-47.0); HGB - HEMOGLOBIN 12.1 g/dL (12.0-16.0); LYMPHOCYTES # (AUTO) 3.8 10^3/uL (1.5-3.5); LYMPHOCYTES % (AUTO) 45.7 %; MEAN CORPUSCULAR HEMOGLOBIN 30.1 pg (27.0-31.0); MEAN CORPUSCULAR HGB CONC 33.9 g/dL (32.0-36.0); MEAN CORPUSCULAR VOLUME 88.8 fL (81.0-99.0); MEAN PLATELET VOLUME 8.7 fL (7.9-10.8); MONOCYTES # (AUTO) 0.7 10^3/uL (0.0-1.0); MONOCYTES % (AUTO) 8.6 %; NEUTROPHILS # (AUTO) 3.4 10^3/uL (1.5-6.6); RED BLOOD COUNT 4.04 10^6/uL (4.20-5.40); RED CELL DISTRIBUTION WIDTH 13.1 % (12.0-15.0); UNCORRECTED WHITE BLOOD COUNT 8.4 x10^3/uL; WHITE BLOOD COUNT 8.4 x10^3/uL (4.8-10.8)
[2017-01-24] MEDS: PANTOPRAZOLE 40 MG TABLET PO SCH (06:10)
[2017-01-24] MEDS: PREGABALIN 100 MG CAPSULE PO SCH ×3 (06:10→21:02)
[2017-01-24 06:16] LABS: ALBUMIN/GLOBULIN RATIO 1.5 (1.0-2.2); BILIRUBIN,TOTAL 0.6 mg/dL (0.2-1.0); CALCIUM 8.8 mg/dL (8.5-10.3); CREATININE 0.6 mg/dL (0.4-1.0); MAGNESIUM 1.7 mg/dL (1.7-2.8); PHOSPHORUS 3.6 mg/dL (2.5-4.6); POTASSIUM 3.1 mmol/L (3.5-5.0); TOTAL PROTEIN 6.4 g/dL (6.7-8.2)
[2017-01-24] MEDS: POTASSIUM CHLOR 10 MEQ/100 ML 100 ML IV SCH ×4 (07:00→14:19)
--- NOTE | 2017-01-24 08:21 | PROVIDER PROGRESS NOTE ---
Subjective - Prog Note Date Prog Note Date: 01/24/17 Prog Note Time: 08:21 - Subjective Pt reports feeling: Improved Subjective: she describes a gradually increasing abdominal distention history over the last 2 months. She feels bloated, has increased belching. Bowel movements changed. She usually has diarrhea because of antibiotics for colitis and UTI. But she has noted decreasing bowel movements and actually felt like she was constipated 2 weeks ago. She used an enema. Even after the enema, a bowel movement, she still felt distended and bloated and had an urgent defecate but couldn't quite go to the bathroom. She denies blood in her stool. 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 Her GI was trying to get her to do a gastric emptying study but she could never completed because she would have emesis fci through the food intake. All of this finally crescendoed with the acute onset of abdominal pain with nonstop nausea and vomiting on the day of admission. Last bowel movement was the day before admission. Dr. Hollis is following her and was seen yesterday and today. She continues to have urgency and frequency and dysuria. She had a UTI and was being treated for. She wonders if she could have pyridium Current Medications - Current Medications Current Medications: Active Medications Acetaminophen (Tylenol) 650 mg PO Q4HR PRN PRN Reason: Pain 1 to 4 Acetaminophen/Butalbital/Caffeine (Fioricet) 1 tab PO Q6H PRN PRN Reason: HEADACHE Last Admin: 01/24/17 05:13 Dose: 1 tab Carvedilol (Coreg) 6.25 mg PO BID [facility] Last Admin: 01/23/17 21:28 Dose: 6.25 mg Enoxaparin Sodium (Lovenox) 40 mg SUBQ DAILY [facility] Last Admin: 01/23/17 07:58 Dose: Not Given Fentanyl (Duragesic) 1 patch TOP Q72H [facility] Last Admin: 01/23/17 04:44 Dose: 1 patch Fluticasone Propionate (Flonase) 0 sprays LINDSEY DAILY [facility] Last Admin: 01/23/17 07:58 Dose: Not Given Sodium Chloride (Normal Saline 0.9%) 1,000 mls @ 125 mls/hr IV .Q8H [facility] Last Admin: 01/24/17 03:52 Dose: 125 mls/hr Ceftriaxone Sodium 1 gm/ (Sodium Chloride) 100 mls @ 200 mls/hr IV DAILY [facility] Last Admin: 01/23/17 08:14 Dose: 200 mls/hr Potassium Chloride (Potassium Chloride) 100 mls @ 100 mls/hr IV Q1H [facility] Stop: 01/24/17 10:59 Last Admin: 01/24/17 08:20 Dose: 100 mls/hr Levetiracetam (Keppra) 1,500 mg PO BID [facility] Last Admin: 01/23/17 21:27 Dose: 1,500 mg Loratadine (Claritin) 20 mg PO DAILY [facility] Last Admin: 01/23/17 07:59 Dose: Not Given Methocarbamol (Robaxin) 750 mg PO QID [facility] Last Admin: 01/23/17 21:29 Dose: 750 mg Morphine Sulfate (Morphine) 2 mg IVP Q2HR PRN PRN Reason: Pain 8 to 10 Last Admin: 01/24/17 03:05 Dose: 2 mg Nystatin (Mycostatin Cream) 0 applic TOP BID [facility] Last Admin: 01/23/17 21:38 Dose: Not Given Ondansetron HCl (Zofran Inj) 4 mg IVP Q6HR PRN PRN Reason: Nausea / Vomiting Last Admin: 01/23/17 14:42 Dose: 4 mg Oxycodone HCl (Roxicodone) 5 mg PO Q4HR PRN PRN Reason: Pain 5 to 7 Oxycodone HCl (Roxicodone) 10 mg PO Q4HR PRN PRN Reason: Pain 8 to 10 Last Admin: 01/24/17 05:14 Dose: 10 mg Pantoprazole Sodium (Protonix) 40 mg PO QDAC [facility] Last Admin: 01/24/17 06:10 Dose: 40 mg Phenytoin Sodium (Dilantin) 400 mg PO QPM [facility] Last Admin: 01/23/17 21:27 Dose: 400 mg Polyethylene Glycol (Miralax) 17 gm PO DAILY [facility] Last Admin: 01/23/17 07:59 Dose: Not Given Pregabalin (Lyrica) 100 mg PO TID [facility] Last Admin: 01/24/17 06:10 Dose: 100 mg Prochlorperazine Edisylate (Compazine Inj) 10 mg IVP Q6HR PRN PRN Reason: Nausea / Vomiting Last Admin: 01/23/17 17:54 Dose: 10 mg Promethazine HCl (Phenergan Inj) 25 mg IM Q6HR PRN PRN Reason: Nausea / Vomiting Sodium Chloride (Normal Saline Flush 0.9%) 10 ml IVP PRN PRN PRN Reason: NEEDED PER PROVIDER ORDERS Sodium Chloride (Normal Saline Flush 0.9%) 10 ml IVP Q8HR [facility] Last Admin: 01/24/17 05:22 Dose: 10 ml Tamsulosin HCl (Flomax) 0.4 mg PO DAILY@1730 PRN PRN Reason: KIDNEYSTONE Temazepam (Restoril) 15 mg PO QPM PRN PRN Reason: Insomnia Trazodone HCl (Desyrel) 100 mg PO QPM PRN PRN Reason: SLEEP/CHRONICPAIN Butalb/Acetam/Caff 50/325/40 [Fioricet] 1 tab PO BID PRN 04/04/13 Cetirizine HCl 10 mg PO DAILY PRN 10/14/16 Oxycodone HCl/Acetaminophen [Percocet 5-325 mg Tablet] 0.5 - 1 tab PO TID traZODone [Desyrel] 50 - 150 mg PO QPM PRN 10/14/16 Chlorthalidone 50 mg ORAL DAILY 01/23/17 FLUoxetine [PROzac] 20 mg PO DAILY 01/23/17 Gemfibrozil 600 mg PO BIDAC 01/23/17 Methocarbamol [Methocarbamol] 750 mg PO TID PRN 01/23/17 Omeprazole 20 mg ORAL BIDAC 01/23/17 Prochlorperazine Maleate [Compazine] 10 mg PO TID PRN 01/23/17 Topiramate [Topamax] 25 mg PO QPM 01/23/17 amLODIPine [Norvasc] 10 mg PO DAILY 01/23/17 Objective - Vital Signs/Intake & Output Reviewed Vital Signs: Yes Intake & Output: Intake & Output 01/21/17 01/22/17 01/23/17 01/24/17 23:59 23:59 23:59 23:59 Intake Total 1300 1050 Output Total 700 Balance 1300 350 - Objective General Appearance: positive: No acute distress, Alert, Other (short, abd protuberant, middle aged) Eyes Bilateral: positive: PERRL, EOMI, No scleral icterus ENT: positive: Pharynx nml Neck: positive: No JVD. negative: Stiff neck, Carotid bruit Respiratory: positive: Chest non-tender. negative: Wheezes, Rales, Rhonchi Cardiovascular: positive: Regular rate & rhythm, No murmur. negative: Gallop/S4 , Friction rub Abdomen: positive: No organomegaly, Tenderness (mild and diffuse), Other (bowel sounds present). negative: Guarding, Rebound Skin: positive: Warm, Dry Extremities: positive: No pedal edema Neurologic/Psychiatric: positive: Oriented x3, CN's nml (2-12), Motor nml - Lab Results Fish Bones: 01/24/17 05:20 01/24/17 05:20 Other Labs: Lab Results x24hrs 01/24/17 01/24/17 Range/Units 05:20 05:20 WBC 8.4 (4.8-10.8) x10^3/uL RBC 4.04 L (4.20-5.40) 10^6/uL Hgb 12.1 (12.0-16.0) g/dL Hct 35.8 L (37.0-47.0) % MCV 88.8 (81.0-99.0) fL MCH 30.1 (27.0-31.0) pg MCHC 33.9 (32.0-36.0) g/dL RDW 13.1 (12.0-15.0) % Plt Count 324 (130-450) 10^3/uL MPV 8.7 (7.9-10.8) fL Neut # 3.4 (1.5-6.6) 10^3/uL Lymph # 3.8 H (1.5-3.5) 10^3/uL [place] # 0.7 (0.0-1.0) 10^3/uL Eos # 0.3 (0.0-0.7) 10^3/uL Baso # 0.1 (0.0-0.1) 10^3/uL Absolute Nucleated RBC 0.00 x10^3/uL Nucleated RBCs 0.0 /100WBC Sodium 141 (135-145) mmol/L Potassium 3.1 L (3.5-5.0) mmol/L Chloride 107 (101-111) mmol/L Carbon Dioxide 24 (21-32) mmol/L Anion Gap 10.0 (6-13) BUN 10 (6-20) mg/dL Creatinine 0.6 (0.4-1.0) mg/dL Estimated GFR (MDRD) 105 (>89) Glucose 113 H (70-100) mg/dL Calcium 8.8 (8.5-10.3) mg/dL Phosphorus 3.6 (2.5-4.6) mg/dL Magnesium 1.7 (1.7-2.8) mg/dL Total Bilirubin 0.6 (0.2-1.0) mg/dL AST 28 (10-42) IU/L ALT 30 (10-60) IU/L Alkaline Phosphatase 99 (42-121) IU/L Total Protein 6.4 L (6.7-8.2) g/dL Albumin 3.8 (3.2-5.5) g/dL Globulin 2.6 (2.1-4.2) g/dL Albumin/Globulin Ratio 1.5 (1.0-2.2) Assessment/Plan - Problem List (1) Abdominal pain Impression: Patient presented with an acute onset of abdominal pain severe in the mid abdomen with associated nausea and vomiting but no fevers or chills. Patient had last normal bowel movement one day before admission, no bowel movements since admission and had mild abdominal distention. Patient had leukocytosis with WBC of 16.2 but no fevers or chills CT of the abdomen revealed mildly prominent small bowel loops measuring up to 2.8 cm in the left mid abdomen with no focal transition point likely representing early obstruction. Patient was requiring IV pain medication and IV emetics for pain control and nausea control. Still ongoing. Likely etiology of patient's abdominal pain is a small bowel obstruction given her extensive history of surgeries likely due to adhesions however it appears to be very early on there for there's no distinct transition point seen on the CT scan. Patient could also have gastroenteritis however was not having any fevers or chills. Plan: N.p.o. IV fluids IV pain medication IV antiemetics Placed NG tube if vomitting returns. She really doesn't want it. Agrees if emesis recurs. Surgical consult requested of Dr. Peña and he is recommending expectant observation. Since she did not improve enough to be sent home yesterday, status changed from OBV to inpatient. (2) Urinary tract infection Conclusion/Plan: Patient was diagnosed with a urinary tract infection 4 days earlier and was started on Levaquin in the outpatient setting but continues to have positive urinary symptoms and grossly positive UA. Culture from admission shows enterobacter today and sensitive to levaquin, rocephin, bactrim but resistant to nitrofurantoin Plan: The patient started on IV ceftriaxone Day #2 Pyridium ordered. Transition to po once can eat. Qualifiers: Urinary tract infection type: acute cystitis (3) Hypertension Conclusion/Plan: Systolic blood pressure elevated on presentation likely secondary to pain Today she varies between 105 systolic to 140's Will continue home medications Monitor blood pressure pain control (4) Chronic left hip pain Conclusion/Plan: Patient on chronic pain medication at home including febrile patch and Percocet Patient's left hip pain controlled however on presentation she is uncontrolled abdominal pain. We'll continue home dose of fentanyl We'll place on IV Dilaudid and by mouth oxycodone while hospitalized (5) Hypothyroidism Conclusion/Plan: continue home dose of Synthroid TSH level ordered for tomorrow am (6) Hyperlipidemia Conclusion/Plan: continue home dose of gemfibrozil stable (7) Seizure disorder Conclusion/Plan: decreased seizures threshold secondary to UTI Continue home dose of Keppra and Dilantin Monitor closely
--- NOTE | 2017-01-24 09:03 | XRAY Preliminary Report ---
Exam: XR Abdomen 1 View IMPRESSION: 1. Unremarkable plain film examination of the abdomen. No gross bowel obstruction seen on single view KUB. 2. Exam otherwise as above. [facility] SITE ID: [id number]
--- NOTE | 2017-01-24 09:05 | XRAY Report ---
EXAM: ABDOMEN RADIOGRAPHY EXAM DATE: 01/24/2017 08:49 AM. CLINICAL HISTORY: Sbo. COMPARISON: CT 01/23/2017. TECHNIQUE: 1 view. FINDINGS: Bowel Gas Pattern: Within normal limits. No dilated loops. Fluid-filled prominent small bowel loops v isible on CT are not apparent on plain film exam. Other: Postoperative change at lumbosacral junction from laminectomy and fusion. Cholecystectomy clip s. Total hip replacement on the left. IMPRESSION: 1. Unremarkable plain film examination of the abdomen. No gross bowel obstruction seen on single view KUB. 2. Exam otherwise as above. [facility] Referring Provider Line: [phone] SITE ID: [id number]
--- NOTE | 2017-01-24 09:23 | PROVIDER PROGRESS NOTE ---
Assessment/Plan - Problem List (1) Abdominal pain Assessment/Plan: 51 yo female toribio multiple medical problems with uti & abdominal pain slowly improving Recommend continued NPO IV fluids Serial exams If vomits or abdominal exam worsens will need NGT Primary medical team to manage surgery will continue to follow - Current Meds Current Meds: Current Medications Generic Name Dose Route Start Last Admin Trade Name Freq PRN Reason Stop Dose Admin Acetaminophen/Butalbital/Caffeine 1 tab 01/23/17 05:00 01/24/17 05:13 Fioricet PO 1 tab Q6H PRN Administration HEADACHE Carvedilol 6.25 mg 01/23/17 09:00 01/23/17 21:28 Coreg PO 6.25 mg BID [facility] Administration Enoxaparin Sodium 40 mg 01/23/17 09:00 01/23/17 07:58 Lovenox SUBQ Not Given DAILY [facility] Fentanyl 1 patch 01/23/17 05:00 01/23/17 04:44 Duragesic TOP 1 patch Q72H [facility] Administration Fluticasone Propionate 0 sprays 01/23/17 09:00 01/23/17 07:58 Flonase LINDSEY Not Given DAILY [facility] Sodium Chloride 1,000 mls @ 125 mls/hr 01/23/17 03:00 01/24/17 03:52 Normal Saline 0.9% IV 125 mls/hr .Q8H [facility] Administration Ceftriaxone Sodium 1 gm/ 100 mls @ 200 mls/hr 01/23/17 09:00 01/23/17 08:14 Sodium Chloride IV 200 mls/hr DAILY [facility] Administration Potassium Chloride 100 mls @ 100 mls/hr 01/24/17 07:00 01/24/17 08:20 Potassium Chloride IV 01/24/17 10:59 100 mls/hr Q1H [facility] Administration Levetiracetam 1,500 mg 01/23/17 09:00 01/23/17 21:27 Keppra PO 1,500 mg BID [facility] Administration Loratadine 20 mg 01/23/17 09:00 01/23/17 07:59 Claritin PO Not Given DAILY [facility] Methocarbamol 750 mg 01/23/17 09:00 01/23/17 21:29 Robaxin PO 750 mg QID [facility] Administration Morphine Sulfate 2 mg 01/23/17 02:03 01/24/17 03:05 Morphine IVP 2 mg Q2HR PRN Administration Pain 8 to 10 Nystatin 0 applic 01/23/17 09:00 01/23/17 21:38 Mycostatin Cream TOP Not Given BID [facility] Ondansetron HCl 4 mg 01/23/17 02:03 01/23/17 14:42 Zofran Inj IVP 4 mg Q6HR PRN Administration Nausea / Vomiting Oxycodone HCl 10 mg 01/23/17 02:03 01/24/17 05:14 Roxicodone PO 10 mg Q4HR PRN Administration Pain 8 to 10 Pantoprazole Sodium 40 mg 01/23/17 07:00 01/24/17 06:10 Protonix PO 40 mg QDAC [facility] Administration Phenytoin Sodium 400 mg 01/23/17 21:00 01/23/17 21:27 Dilantin PO 400 mg QPM [facility] Administration Polyethylene Glycol 17 gm 01/23/17 09:00 01/23/17 07:59 Miralax PO Not Given DAILY [facility] Pregabalin 100 mg 01/23/17 06:00 01/24/17 06:10 Lyrica PO 100 mg TID [facility] Administration Prochlorperazine Edisylate 10 mg 01/23/17 02:03 01/23/17 17:54 Compazine Inj IVP 10 mg Q6HR PRN Administration Nausea / Vomiting Sodium Chloride 10 ml 01/23/17 06:00 01/24/17 05:22 Normal Saline Flush 0.9% IVP 10 ml Q8HR [facility] Administration - Lab Result Fish Bone Diagrams: 01/24/17 05:20 01/24/17 05:20 - Diagnostic Imaging Results Diagnostic Imaging Results: positive: Read contemporaneously (01/24/17 KUB IMPRESSION: 1. Unremarkable plain film examination of the abdomen. No gross bowel obstruction seen on single view KUB. 2. Exam otherwise as above.) - Additional Planning Condition/Complexity: Stable My Orders: My Active Orders 01/23/17 16:15 PICC Line Care [RC] Q4H PICC Line Insert [RC] .ONCE Plan Discussed with:: Patient Subjective - Subjective Patient Reports: Feeling Better (Patient seen at bedside. She states the abdominal pain has improved somewhat from yesterday and she didn not really have any Nausea or vomiting overnight. She states the burning with urination has gooten less, though still has urinary frequency. She stated she is unable to ambulate but was sitting in chair yesterday and able to get to bedside commode by herself. No other issues overnight.) Nursing Reports: No Complaints Objective Vital Signs: Vital Signs - 24 hr 01/23/17 01/23/17 01/24/17 15:30 19:49 00:05 Temperature 36.8 C 36.9 C 36.7 C Heart Rate [ 56 L 69 76 Brachial] Respiratory 16 16 17 Rate Blood Pressure 108/71 [Left Brachial artery] Blood Pressure 126/80 105/72 [Right Brachial artery] O2 Saturation 99 98 100 01/24/17 08:05 Temperature 37.1 C Heart Rate [ 54 L Brachial] Respiratory 18 Rate Blood Pressure [Left Brachial artery] Blood Pressure 149/90 H [Right Brachial artery] O2 Saturation 98 Oxygen O2 Source Room air I&O (Last 24 Hrs): Intake and Output Totals x24h 01/22/17 01/23/17 01/24/17 23:59 23:59 23:59 Intake Total 1300 1050 Output Total 700 Balance 1300 350 General: Alert, Oriented x3 HEENT: EOMI Neck: No JVD Neuro: Alert Cardiovascular: Regular rate Respiratory: Breath sounds nml Abdomen: Soft (+BS, soft, ND, No rebound. TTP Right side of abdomen, suprapubic and epigastric regions. Voluntary guarding.) - Results Results: Laboratory Results WBC 8.4 x10^3/uL (4.8-10.8) 01/24/17 05:20 RBC 4.04 10^6/uL (4.20-5.40) L 01/24/17 05:20 Hgb 12.1 g/dL (12.0-16.0) 01/24/17 05:20 Hct 35.8 % (37.0-47.0) L 01/24/17 05:20 MCV 88.8 fL (81.0-99.0) 01/24/17 05:20 MCH 30.1 pg (27.0-31.0) 01/24/17 05:20 MCHC 33.9 g/dL (32.0-36.0) 01/24/17 05:20 RDW 13.1 % (12.0-15.0) 01/24/17 05:20 Plt Count 324 10^3/uL (130-450) 01/24/17 05:20 MPV 8.7 fL (7.9-10.8) 01/24/17 05:20 Neut # 3.4 10^3/uL (1.5-6.6) 01/24/17 05:20 Lymph # 3.8 10^3/uL (1.5-3.5) H 01/24/17 05:20 [place] # 0.7 10^3/uL (0.0-1.0) 01/24/17 05:20 Eos # 0.3 10^3/uL (0.0-0.7) 01/24/17 05:20 Baso # 0.1 10^3/uL (0.0-0.1) 01/24/17 05:20 Absolute Nucleated RBC 0.00 x10^3/uL 01/24/17 05:20 Nucleated RBCs 0.0 /100WBC 01/24/17 05:20 Sodium 141 mmol/L (135-145) 01/24/17 05:20 Potassium 3.1 mmol/L (3.5-5.0) L 01/24/17 05:20 Chloride 107 mmol/L (101-111) 01/24/17 05:20 Carbon Dioxide 24 mmol/L (21-32) 01/24/17 05:20 Anion Gap 10.0 (6-13) 01/24/17 05:20 BUN 10 mg/dL (6-20) 01/24/17 05:20 Creatinine 0.6 mg/dL (0.4-1.0) 01/24/17 05:20 Estimated GFR (MDRD) 105 (>89) 01/24/17 05:20 Glucose 113 mg/dL (70-100) H 01/24/17 05:20 Lactic Acid 1.4 mmol/L (0.5-2.2) 01/22/17 23:09 Calcium 8.8 mg/dL (8.5-10.3) 01/24/17 05:20 Phosphorus 3.6 mg/dL (2.5-4.6) 01/24/17 05:20 Magnesium 1.7 mg/dL (1.7-2.8) 01/24/17 05:20 Total Bilirubin 0.6 mg/dL (0.2-1.0) 01/24/17 05:20 AST 28 IU/L (10-42) 01/24/17 05:20 ALT 30 IU/L (10-60) 01/24/17 05:20 Alkaline Phosphatase 99 IU/L (42-121) 01/24/17 05:20 Troponin I < 0.04 ng/mL (<0.49) 01/22/17 23:09 Total Protein 6.4 g/dL (6.7-8.2) L 01/24/17 05:20 Albumin 3.8 g/dL (3.2-5.5) 01/24/17 05:20 Globulin 2.6 g/dL (2.1-4.2) 01/24/17 05:20 Albumin/Globulin Ratio 1.5 (1.0-2.2) 01/24/17 05:20 Lipase 46 U/L (22-51) 01/22/17 23:09 Urine Color YELLOW 01/22/17 23:34 Urine Clarity HAZY (CLEAR) 01/22/17 23:34 Urine pH 6.0 PH (5.0-7.5) 01/22/17 23:34 Ur Specific [place] 1.020 (1.002-1.030) 01/22/17 23:34 Urine Protein 30 mg/dL (NEGATIVE) H 01/22/17 23:34 Urine Glucose (UA) NEGATIVE mg/dL (NEGATIVE) 01/22/17 23:34 Urine Ketones NEGATIVE mg/dL (NEGATIVE) 01/22/17 23:34 Urine Occult Blood SMALL (NEGATIVE) H 01/22/17 23:34 Urine Nitrite POSITIVE (NEGATIVE) H 01/22/17 23:34 Urine Bilirubin NEGATIVE (NEGATIVE) 01/22/17 23:34 Urine Urobilinogen 1 (NORMAL) E.U./dL (NORMAL) 01/22/17 23:34 Ur Leukocyte Esterase SMALL (NEGATIVE) H 01/22/17 23:34 Urine RBC 6-10 /HPF (0-5) H 01/22/17 23:34 Urine WBC >25 /HPF (0-5) H 01/22/17 23:34 Ur Squamous Epith Cells FEW Squamous (<= Few) 01/22/17 23:34 Urine Bacteria Moderate /HPF (None Seen) H 01/22/17 23:34 Urine Casts 3-5 Hyaline Casts /LPF 01/22/17 23:34 Ur Microscopic Review INDICATED 01/22/17 23:34 Urine Culture Comments INDICATED 01/22/17 23:34 - Procedures Procedures: Procedures INSERTION OF INFUSION DEV INTO SUP VENA CAVA, PERC APPROACH (09/05/15)
[2017-01-24] MEDS: levETIRAcetam 250 MG TABLET PO SCH ×2 (09:50→21:01)
[2017-01-24] MEDS: METHOCARBAMOL 500 MG TABLET PO SCH ×4 (09:52→21:02)
[2017-01-24] MEDS: LORATADINE 10 MG TABLET PO SCH (09:52)
[2017-01-24] MEDS: CARVEDILOL 3.125 MG TABLET PO SCH ×2 (09:53→21:02)
[2017-01-24] MEDS: cefTRIAXone 1 GM in SODIUM CHLORIDE 0.9% MINIBAG 100 ML IV SCH (09:54)
[2017-01-24] MEDS: FLUTICASONE NASAL SPRAY NAS SCH (09:54)
[2017-01-24] MEDS: ENOXAPARIN 40 MG/0.4 ML SYRINGE SUBQ SCH (09:54)
[2017-01-24] MEDS: NYSTATIN CREAM 15 GM TUBE TOP SCH ×2 (09:55→21:03)
[2017-01-24] MEDS: POLYETHYLENE GLYCOL 3350 17 GM PACKET PO SCH (10:02)
[2017-01-24] MEDS: ONDANSETRON 4 MG/2 ML VIAL IVP PRN (13:01)
[2017-01-24] MEDS: PHENAZOPYRIDINE 100 MG TABLET PO SCH ×2 (15:30→21:03)
[2017-01-24] MEDS: PHENYTOIN ER 100 MG CAPSULE PO SCH (21:00)
[2017-01-24] MEDS: PROCHLORPERAZINE 10 MG/2 ML VIAL IVP PRN (21:02)
[2017-01-25] MEDS: oxyCODONE 5 MG TABLET PO PRN ×5 (01:24→23:31)
[2017-01-25] MEDS: MORPHINE 2 MG/ML SYRINGE IVP PRN ×4 (03:59→23:35)
[2017-01-25] MEDS: SODIUM CHLORIDE 0.9% 1,000 ML IV SCH ×3 (05:03→22:26)
[2017-01-25] MEDS: ONDANSETRON 4 MG/2 ML VIAL IVP PRN (05:41)
[2017-01-25] MEDS: SODIUM CHLORIDE FLUSH 0.9% 10 ML SYRINGE IVP PRN (05:46)
[2017-01-25] MEDS: SODIUM CHLORIDE FLUSH 0.9% 10 ML SYRINGE IVP SCH ×3 (05:46→22:56)
[2017-01-25] MEDS: PHENAZOPYRIDINE 100 MG TABLET PO SCH ×3 (05:58→21:26)
[2017-01-25] MEDS: PREGABALIN 100 MG CAPSULE PO SCH ×3 (05:58→21:26)
[2017-01-25] MEDS: PANTOPRAZOLE 40 MG TABLET PO SCH (05:59)
[2017-01-25 06:10] LABS: BASOPHILS # (AUTO) 0.1 10^3/uL (0.0-0.1); BASOPHILS % (AUTO) 0.9 %; EOSINOPHILS # (AUTO) 0.3 10^3/uL (0.0-0.7); EOSINOPHILS % (AUTO) 5.6 %; HCT - HEMATOCRIT 35.9 % (37.0-47.0); LYMPHOCYTES # (AUTO) 2.8 10^3/uL (1.5-3.5); LYMPHOCYTES % (AUTO) 47.7 %; MEAN CORPUSCULAR HEMOGLOBIN 29.7 pg (27.0-31.0); MEAN CORPUSCULAR HGB CONC 33.5 g/dL (32.0-36.0); MEAN CORPUSCULAR VOLUME 88.6 fL (81.0-99.0); MEAN PLATELET VOLUME 8.3 fL (7.9-10.8); MONOCYTES # (AUTO) 0.5 10^3/uL (0.0-1.0); MONOCYTES % (AUTO) 8.5 %; NEUTROPHILS # (AUTO) 2.2 10^3/uL (1.5-6.6); NEUTROPHILS % (AUTO) 37.3 %; NUCLEATED RED BLOOD CELLS AUTO 0.1 /100WBC; RED BLOOD COUNT 4.05 10^6/uL (4.20-5.40); RED CELL DISTRIBUTION WIDTH 13.1 % (12.0-15.0); UNCORRECTED WHITE BLOOD COUNT 5.8 x10^3/uL; WHITE BLOOD COUNT 5.8 x10^3/uL (4.8-10.8)
--- NOTE | 2017-01-25 06:33 | PROVIDER PROGRESS NOTE ---
Assessment/Plan - Problem List (1) Abdominal pain Assessment/Plan: 51 yo female with multiple medical problems with uti & abdominal pain improving passing flatus Clears started Advance diet as tolerated. Primary medical team to manage medical issues - Current Meds Current Meds: Current Medications Generic Name Dose Route Start Last Admin Trade Name Freq PRN Reason Stop Dose Admin Acetaminophen/Butalbital/Caffeine 1 tab 01/23/17 05:00 01/24/17 21:03 Fioricet PO 1 tab Q6H PRN Administration HEADACHE Carvedilol 6.25 mg 01/23/17 09:00 01/24/17 21:02 Coreg PO 6.25 mg BID PADMA Administration Enoxaparin Sodium 40 mg 01/23/17 09:00 01/24/17 09:54 Lovenox SUBQ 40 mg DAILY PADMA Administration Fentanyl 1 patch 01/23/17 05:00 01/23/17 04:44 Duragesic TOP 1 patch Q72H PADMA Administration Fluticasone Propionate 0 sprays 01/23/17 09:00 01/24/17 09:54 Flonase LINDSEY 1 spr DAILY PADMA Administration Sodium Chloride 1,000 mls @ 125 mls/hr 01/23/17 03:00 01/25/17 05:03 Normal Saline 0.9% IV 125 mls/hr .Q8H PADMA Administration Ceftriaxone Sodium 1 gm/ 100 mls @ 200 mls/hr 01/23/17 09:00 01/24/17 09:54 Sodium Chloride IV 200 mls/hr DAILY PADMA Administration Levetiracetam 1,500 mg 01/23/17 09:00 01/24/17 21:01 Keppra PO 1,500 mg BID PADMA Administration Loratadine 20 mg 01/23/17 09:00 01/24/17 09:52 Claritin PO 20 mg DAILY PADMA Administration Methocarbamol 750 mg 01/23/17 09:00 01/24/17 21:02 Robaxin PO 750 mg QID PADMA Administration Morphine Sulfate 2 mg 01/23/17 02:03 01/25/17 03:59 Morphine IVP 2 mg Q2HR PRN Administration Pain 8 to 10 Nystatin 0 applic 01/23/17 09:00 01/24/17 21:03 Mycostatin Cream TOP 1 applic BID PADMA Administration Ondansetron HCl 4 mg 01/23/17 02:03 01/25/17 05:41 Zofran Inj IVP 4 mg Q6HR PRN Administration Nausea / Vomiting Oxycodone HCl 5 mg 01/23/17 02:03 01/25/17 01:24 Roxicodone PO 5 mg Q4HR PRN Administration Pain 5 to 7 Oxycodone HCl 10 mg 01/23/17 02:03 01/25/17 05:58 Roxicodone PO 10 mg Q4HR PRN Administration Pain 8 to 10 Pantoprazole Sodium 40 mg 01/23/17 07:00 01/25/17 05:59 Protonix PO 40 mg QDAC PADMA Administration Phenazopyridine HCl 100 mg 01/24/17 15:00 01/25/17 05:58 Pyridium PO 100 mg TID PADMA Administration Phenytoin Sodium 400 mg 01/23/17 21:00 01/24/17 21:00 Dilantin PO 400 mg QPM PADMA Administration Polyethylene Glycol 17 gm 01/23/17 09:00 01/24/17 10:02 Miralax PO Not Given DAILY PADMA Pregabalin 100 mg 01/23/17 06:00 01/25/17 05:58 Lyrica PO 100 mg TID PADMA Administration Prochlorperazine Edisylate 10 mg 01/23/17 02:03 01/24/17 21:02 Compazine Inj IVP 10 mg Q6HR PRN Administration Nausea / Vomiting Sodium Chloride 10 ml 01/23/17 02:03 01/25/17 05:46 Normal Saline Flush 0.9% IVP 10 ml PRN PRN Administration NEEDED PER PROVIDER ORDERS Sodium Chloride 10 ml 01/23/17 06:00 01/25/17 05:46 Normal Saline Flush 0.9% IVP 10 ml Q8HR PADMA Administration Tamsulosin HCl 0.4 mg 01/23/17 17:30 01/24/17 21:03 Flomax PO 0.4 mg DAILY@1730 PRN Administration KIDNEYSTONE - Lab Result Fish Bone Diagrams: 01/25/17 05:55 01/24/17 05:20 - Additional Planning My Orders: My Active Orders 01/25/17 Lunch Clear Liquid Diet [DIET] Subjective - Subjective Patient Reports: Feeling Better Nursing Reports: No Complaints (pt c/o that she's hungry) Objective Vital Signs: Vital Signs - 24 hr 01/24/17 01/24/17 01/25/17 08:05 15:59 00:42 Temperature 37.1 C 37.0 C 36.8 C Heart Rate [ 54 L 49 L 64 Brachial] Respiratory 18 18 16 Rate Blood Pressure 102/70 [Left Brachial artery] Blood Pressure 149/90 H 115/76 [Right Brachial artery] O2 Saturation 98 98 98 Oxygen O2 Source Room air I&O (Last 24 Hrs): Intake and Output Totals x24h 01/23/17 01/24/17 01/25/17 23:59 23:59 23:59 Intake Total 1300 1050 1049 Output Total 700 Balance 8138 583 0899 General: Oriented x3 Respiratory: Breath sounds nml Abdomen: Normal bowel sounds (+BS, soft, ND, mild tenderness right flank. no rebound no guarding.) - Results Results: Laboratory Results WBC 5.8 x10^3/uL (4.8-10.8) 01/25/17 05:55 RBC 4.05 10^6/uL (4.20-5.40) L 01/25/17 05:55 Hgb 12.0 g/dL (12.0-16.0) 01/25/17 05:55 Hct 35.9 % (37.0-47.0) L 01/25/17 05:55 MCV 88.6 fL (81.0-99.0) 01/25/17 05:55 MCH 29.7 pg (27.0-31.0) 01/25/17 05:55 MCHC 33.5 g/dL (32.0-36.0) 01/25/17 05:55 RDW 13.1 % (12.0-15.0) 01/25/17 05:55 Plt Count 229 10^3/uL (130-450) 01/25/17 05:55 MPV 8.3 fL (7.9-10.8) 01/25/17 05:55 Neut # 2.2 10^3/uL (1.5-6.6) 01/25/17 05:55 Lymph # 2.8 10^3/uL (1.5-3.5) 01/25/17 05:55 [place] # 0.5 10^3/uL (0.0-1.0) 01/25/17 05:55 Eos # 0.3 10^3/uL (0.0-0.7) 01/25/17 05:55 Baso # 0.1 10^3/uL (0.0-0.1) 01/25/17 05:55 Absolute Nucleated RBC 0.00 x10^3/uL 01/25/17 05:55 Nucleated RBCs 0.1 /100WBC 01/25/17 05:55 Sodium 141 mmol/L (135-145) 01/24/17 05:20 Potassium 3.1 mmol/L (3.5-5.0) L 01/24/17 05:20 Chloride 107 mmol/L (101-111) 01/24/17 05:20 Carbon Dioxide 24 mmol/L (21-32) 01/24/17 05:20 Anion Gap 10.0 (6-13) 01/24/17 05:20 BUN 10 mg/dL (6-20) 01/24/17 05:20 Creatinine 0.6 mg/dL (0.4-1.0) 01/24/17 05:20 Estimated GFR (MDRD) 105 (>89) 01/24/17 05:20 Glucose 113 mg/dL (70-100) H 01/24/17 05:20 Lactic Acid 1.4 mmol/L (0.5-2.2) 01/22/17 23:09 Calcium 8.8 mg/dL (8.5-10.3) 01/24/17 05:20 Phosphorus 3.6 mg/dL (2.5-4.6) 01/24/17 05:20 Magnesium 1.7 mg/dL (1.7-2.8) 01/24/17 05:20 Total Bilirubin 0.6 mg/dL (0.2-1.0) 01/24/17 05:20 AST 28 IU/L (10-42) 01/24/17 05:20 ALT 30 IU/L (10-60) 01/24/17 05:20 Alkaline Phosphatase 99 IU/L (42-121) 01/24/17 05:20 Troponin I < 0.04 ng/mL (<0.49) 01/22/17 23:09 Total Protein 6.4 g/dL (6.7-8.2) L 01/24/17 05:20 Albumin 3.8 g/dL (3.2-5.5) 01/24/17 05:20 Globulin 2.6 g/dL (2.1-4.2) 01/24/17 05:20 Albumin/Globulin Ratio 1.5 (1.0-2.2) 01/24/17 05:20 Lipase 46 U/L (22-51) 01/22/17 23:09 Urine Color YELLOW 01/22/17 23:34 Urine Clarity HAZY (CLEAR) 01/22/17 23:34 Urine pH 6.0 PH (5.0-7.5) 01/22/17 23:34 Ur Specific [place] 1.020 (1.002-1.030) 01/22/17 23:34 Urine Protein 30 mg/dL (NEGATIVE) H 01/22/17 23:34 Urine Glucose (UA) NEGATIVE mg/dL (NEGATIVE) 01/22/17 23:34 Urine Ketones NEGATIVE mg/dL (NEGATIVE) 01/22/17 23:34 Urine Occult Blood SMALL (NEGATIVE) H 01/22/17 23:34 Urine Nitrite POSITIVE (NEGATIVE) H 01/22/17 23:34 Urine Bilirubin NEGATIVE (NEGATIVE) 01/22/17 23:34 Urine Urobilinogen 1 (NORMAL) E.U./dL (NORMAL) 01/22/17 23:34 Ur Leukocyte Esterase SMALL (NEGATIVE) H 01/22/17 23:34 Urine RBC 6-10 /HPF (0-5) H 01/22/17 23:34 Urine WBC >25 /HPF (0-5) H 01/22/17 23:34 Ur Squamous Epith Cells FEW Squamous (<= Few) 01/22/17 23:34 Urine Bacteria Moderate /HPF (None Seen) H 01/22/17 23:34 Urine Casts 3-5 Hyaline Casts /LPF 01/22/17 23:34 Ur Microscopic Review INDICATED 01/22/17 23:34 Urine Culture Comments INDICATED 01/22/17 23:34 - Procedures Procedures: Procedures INSERTION OF INFUSION DEV INTO SUP VENA CAVA, PERC APPROACH (09/05/15)
[2017-01-25 06:34] LABS: ALBUMIN/GLOBULIN RATIO 1.4 (1.0-2.2); BILIRUBIN,TOTAL 0.9 mg/dL (0.2-1.0); CALCIUM 8.9 mg/dL (8.5-10.3); CREATININE 0.6 mg/dL (0.4-1.0); MAGNESIUM 1.6 mg/dL (1.7-2.8); PHOSPHORUS 3.7 mg/dL (2.5-4.6); POTASSIUM 3.5 mmol/L (3.5-5.0); TOTAL PROTEIN 6.5 g/dL (6.7-8.2)
--- NOTE | 2017-01-25 08:10 | PROVIDER PROGRESS NOTE ---
Subjective - Prog Note Date Prog Note Date: 01/25/17 Prog Note Time: 12:09 - Subjective Pt reports feeling: Improved Subjective: she is tolerating clear liquids and doing well with that. flatus is frequent. 1 BM. no ABD pain. Current Medications - Current Medications Current Medications: Active Medications Acetaminophen (Tylenol) 650 mg PO Q4HR PRN PRN Reason: Pain 1 to 4 Acetaminophen/Butalbital/Caffeine (Fioricet) 1 tab PO Q6H PRN PRN Reason: HEADACHE Last Admin: 01/24/17 21:03 Dose: 1 tab Carvedilol (Coreg) 6.25 mg PO BID [facility] Last Admin: 01/25/17 10:51 Dose: Not Given Enoxaparin Sodium (Lovenox) 40 mg SUBQ DAILY [facility] Last Admin: 01/25/17 09:23 Dose: 40 mg Fentanyl (Duragesic) 1 patch TOP Q72H [facility] Last Admin: 01/23/17 04:44 Dose: 1 patch Fluticasone Propionate (Flonase) 0 sprays LINDSEY DAILY [facility] Last Admin: 01/25/17 09:25 Dose: 1 spr Sodium Chloride (Normal Saline 0.9%) 1,000 mls @ 125 mls/hr IV .Q8H [facility] Last Admin: 01/25/17 05:03 Dose: 125 mls/hr Ceftriaxone Sodium 1 gm/ (Sodium Chloride) 100 mls @ 200 mls/hr IV DAILY [facility] Last Admin: 01/25/17 09:23 Dose: 200 mls/hr Levetiracetam (Keppra) 1,500 mg PO BID [facility] Last Admin: 01/25/17 09:24 Dose: 1,500 mg Loratadine (Claritin) 20 mg PO DAILY [facility] Last Admin: 01/25/17 09:25 Dose: 20 mg Methocarbamol (Robaxin) 750 mg PO QID [facility] Last Admin: 01/25/17 09:23 Dose: 750 mg Morphine Sulfate (Morphine) 2 mg IVP Q2HR PRN PRN Reason: Pain 8 to 10 Last Admin: 01/25/17 03:59 Dose: 2 mg Nystatin (Mycostatin Cream) 0 applic TOP BID [facility] Last Admin: 01/25/17 09:25 Dose: 1 applic Ondansetron HCl (Zofran Inj) 4 mg IVP Q6HR PRN PRN Reason: Nausea / Vomiting Last Admin: 01/25/17 05:41 Dose: 4 mg Oxycodone HCl (Roxicodone) 5 mg PO Q4HR PRN PRN Reason: Pain 5 to 7 Last Admin: 01/25/17 01:24 Dose: 5 mg Oxycodone HCl (Roxicodone) 10 mg PO Q4HR PRN PRN Reason: Pain 8 to 10 Last Admin: 01/25/17 05:58 Dose: 10 mg Pantoprazole Sodium (Protonix) 40 mg PO QDAC [facility] Last Admin: 01/25/17 05:59 Dose: 40 mg Phenazopyridine HCl (Pyridium) 100 mg PO TID [facility] Last Admin: 01/25/17 05:58 Dose: 100 mg Phenytoin Sodium (Dilantin) 400 mg PO QPM [facility] Last Admin: 01/24/17 21:00 Dose: 400 mg Polyethylene Glycol (Miralax) 17 gm PO DAILY [facility] Last Admin: 01/25/17 09:23 Dose: 17 gm Potassium Chloride (K-Dur) 20 meq PO DAILYWM [facility] Last Admin: 01/25/17 09:24 Dose: 20 meq Pregabalin (Lyrica) 100 mg PO TID [facility] Last Admin: 01/25/17 05:58 Dose: 100 mg Prochlorperazine Edisylate (Compazine Inj) 10 mg IVP Q6HR PRN PRN Reason: Nausea / Vomiting Last Admin: 01/24/17 21:02 Dose: 10 mg Promethazine HCl (Phenergan Inj) 25 mg IM Q6HR PRN PRN Reason: Nausea / Vomiting Sodium Chloride (Normal Saline Flush 0.9%) 10 ml IVP PRN PRN PRN Reason: NEEDED PER PROVIDER ORDERS Last Admin: 01/25/17 05:46 Dose: 10 ml Sodium Chloride (Normal Saline Flush 0.9%) 10 ml IVP Q8HR [facility] Last Admin: 01/25/17 05:46 Dose: 10 ml Tamsulosin HCl (Flomax) 0.4 mg PO DAILY@1730 PRN PRN Reason: KIDNEYSTONE Last Admin: 01/24/17 21:03 Dose: 0.4 mg Temazepam (Restoril) 15 mg PO QPM PRN PRN Reason: Insomnia Trazodone HCl (Desyrel) 100 mg PO QPM PRN PRN Reason: SLEEP/CHRONICPAIN Butalb/Acetam/Caff 50/325/40 [Fioricet] 1 tab PO BID PRN 04/04/13 Cetirizine HCl 10 mg PO DAILY PRN 10/14/16 Oxycodone HCl/Acetaminophen [Percocet 5-325 mg Tablet] 0.5 - 1 tab PO TID traZODone [Desyrel] 50 - 150 mg PO QPM PRN 10/14/16 Chlorthalidone 50 mg ORAL DAILY 01/23/17 FLUoxetine [PROzac] 20 mg PO DAILY 01/23/17 Gemfibrozil 600 mg PO BIDAC 01/23/17 Methocarbamol [Methocarbamol] 750 mg PO TID PRN 01/23/17 Omeprazole 20 mg ORAL BIDAC 01/23/17 Prochlorperazine Maleate [Compazine] 10 mg PO TID PRN 01/23/17 Topiramate [Topamax] 25 mg PO QPM 01/23/17 amLODIPine [Norvasc] 10 mg PO DAILY 01/23/17 Objective - Vital Signs/Intake & Output Reviewed Vital Signs: Yes Vital Signs: Vital Signs x48h Temp Pulse Resp BP Pulse Ox 01/25/17 00:42 36.8 C 64 16 102/70 98 Intake & Output: Intake & Output 01/22/17 01/23/17 01/24/17 01/25/17 23:59 23:59 23:59 23:59 Intake Total 1300 1050 1049 Output Total 700 Balance 2310 527 8427 - Objective General Appearance: positive: No acute distress, Alert, Other (sitting up in bed eating breakfast and is cheerful) Eyes Bilateral: positive: PERRL, EOMI ENT: positive: No signs of dehydration Neck: negative: Stiff neck, Carotid bruit Respiratory: positive: Chest non-tender. negative: Wheezes, Rales, Rhonchi Cardiovascular: positive: Regular rate & rhythm. negative: Gallop/S4, Friction rub Abdomen: positive: Non-tender, Nml bowel sounds, Other (still with mild distension). negative: Guarding, Rebound Skin: positive: Color nml, No rash, Warm, Dry Extremities: positive: Full ROM, No pedal edema Neurologic/Psychiatric: positive: Oriented x3, CN's nml (2-12), Motor nml - Lab Results Fish Bones: 01/25/17 05:55 01/25/17 05:55 Other Labs: Lab Results x24hrs 01/25/17 01/25/17 01/25/17 Range/Units 05:55 05:55 05:55 WBC 5.8 (4.8-10.8) x10^3/uL RBC 4.05 L (4.20-5.40) 10^6/uL Hgb 12.0 (12.0-16.0) g/dL Hct 35.9 L (37.0-47.0) % MCV 88.6 (81.0-99.0) fL MCH 29.7 (27.0-31.0) pg MCHC 33.5 (32.0-36.0) g/dL RDW 13.1 (12.0-15.0) % Plt Count 229 (130-450) 10^3/uL MPV 8.3 (7.9-10.8) fL Neut # 2.2 (1.5-6.6) 10^3/uL Lymph # 2.8 (1.5-3.5) 10^3/uL [place] # 0.5 (0.0-1.0) 10^3/uL Eos # 0.3 (0.0-0.7) 10^3/uL Baso # 0.1 (0.0-0.1) 10^3/uL Absolute Nucleated RBC 0.00 x10^3/uL Nucleated RBCs 0.1 /100WBC Sodium 139 (135-145) mmol/L Potassium 3.5 (3.5-5.0) mmol/L Chloride 105 (101-111) mmol/L Carbon Dioxide 21 (21-32) mmol/L Anion Gap 13.0 (6-13) BUN 13 (6-20) mg/dL Creatinine 0.6 (0.4-1.0) mg/dL Estimated GFR (MDRD) 105 (>89) Glucose 73 (70-100) mg/dL Calcium 8.9 (8.5-10.3) mg/dL Phosphorus 3.7 (2.5-4.6) mg/dL Magnesium 1.6 L (1.7-2.8) mg/dL Total Bilirubin 0.9 (0.2-1.0) mg/dL AST 24 (10-42) IU/L ALT 29 (10-60) IU/L Alkaline Phosphatase 102 (42-121) IU/L Total Protein 6.5 L (6.7-8.2) g/dL Albumin 3.8 (3.2-5.5) g/dL Globulin 2.7 (2.1-4.2) g/dL Albumin/Globulin Ratio 1.4 (1.0-2.2) TSH 4.27 (0.34-5.60) uIU/mL Assessment/Plan - Problem List (1) Abdominal pain Impression: Patient presented with an acute onset of abdominal pain severe in the mid abdomen with associated nausea and vomiting but no fevers or chills. Patient had last normal bowel movement one day before admission, no bowel movements since admission and had mild abdominal distention. Patient had leukocytosis with WBC of 16.2 but no fevers or chills and WBC has comes down to normal since 01/24. Down to 5.[address] of the abdomen revealed mildly prominent small bowel loops measuring up to 2.8 cm in the left mid abdomen with no focal transition point likely representing early obstruction. Patient was requiring IV pain medication and IV emetics for pain control and nausea control. flatus started yesterday and clear liquids started. Likely etiology of patient's abdominal pain is a small bowel obstruction given her extensive history of surgeries likely due to adhesions however it appears to be very early on there for there's no distinct transition point seen on the CT scan. Patient could also have gastroenteritis however was not having any fevers or chills. She never needed NG tube. Plan: Clear liquids today and advance per Surgery. IV fluids IV pain medication IV antiemetics UGI with SBFT in the morning. Ambulate in hernadez and room (2) Urinary tract infection Conclusion/Plan: Patient was diagnosed with a urinary tract infection 4 days earlier and was started on Levaquin in the outpatient setting but continues to have positive urinary symptoms and grossly positive UA. Culture from admission shows enterobacter and sensitive to levaquin, rocephin, bactrim but resistant to nitrofurantoin Plan: The patient started on IV ceftriaxone Day #3 Pyridium ordered. Transition to po keflex today. She was on levaquin before admission. Qualifiers: Urinary tract infection type: acute cystitis (3) Hypertension Conclusion/Plan: Systolic blood pressure elevated on presentation likely secondary to pain In the last 12 hours 93 systolic to 149. no symptoms with the low. Will continue home medications Monitor blood pressure pain control (4) Chronic left hip pain Conclusion/Plan: Patient on chronic pain medication at home including febrile patch and Percocet Patient's left hip pain controlled however on presentation she is uncontrolled abdominal pain. We'll continue home dose of fentanyl We'll place on IV Dilaudid and by mouth oxycodone while hospitalized (5) Hypothyroidism Conclusion/Plan: continue home dose of Synthroid TSH level 4.27 (6) Hyperlipidemia Conclusion/Plan: continue home dose of gemfibrozil stable (7) Seizure disorder Conclusion/Plan: decreased seizures threshold secondary to UTI Continue home dose of Keppra and Dilantin Monitor closely
[2017-01-25] MEDS: POLYETHYLENE GLYCOL 3350 17 GM PACKET PO SCH (09:23)
[2017-01-25] MEDS: ENOXAPARIN 40 MG/0.4 ML SYRINGE SUBQ SCH (09:23)
[2017-01-25] MEDS: METHOCARBAMOL 500 MG TABLET PO SCH ×4 (09:23→20:12)
[2017-01-25] MEDS: cefTRIAXone 1 GM in SODIUM CHLORIDE 0.9% MINIBAG 100 ML IV SCH (09:23)
[2017-01-25] MEDS: levETIRAcetam 250 MG TABLET PO SCH ×2 (09:24→20:10)
[2017-01-25] MEDS: POTASSIUM CHLORIDE 20 MEQ TABLET PO SCH (09:24)
[2017-01-25] MEDS: LORATADINE 10 MG TABLET PO SCH (09:25)
[2017-01-25] MEDS: NYSTATIN CREAM 15 GM TUBE TOP SCH ×2 (09:25→20:13)
[2017-01-25] MEDS: FLUTICASONE NASAL SPRAY NAS SCH (09:25)
[2017-01-25] MEDS: CARVEDILOL 3.125 MG TABLET PO SCH ×2 (10:51→20:13)
[2017-01-25] MEDS: CEPHALEXIN 250 MG CAPSULE PO SCH ×3 (13:45→23:31)
[2017-01-25] MEDS: PROCHLORPERAZINE 10 MG/2 ML VIAL IVP PRN (17:24)
[2017-01-25] MEDS: PHENYTOIN ER 100 MG CAPSULE PO SCH (20:12)
[2017-01-25] MEDS: BUTALB/ACETAM/CAFF 50/325/40MG TABLET PO PRN (21:26)
[2017-01-26] MEDS: ONDANSETRON 4 MG/2 ML VIAL IVP PRN (02:13)
[2017-01-26] MEDS: MORPHINE 2 MG/ML SYRINGE IVP PRN ×3 (02:13→11:45)
[2017-01-26] MEDS: BUTALB/ACETAM/CAFF 50/325/40MG TABLET PO PRN (03:02)
[2017-01-26] MEDS: PHENAZOPYRIDINE 100 MG TABLET PO SCH (05:10)
[2017-01-26] MEDS: fentaNYL 50 MCG PATCH TOP SCH (05:10)
[2017-01-26] MEDS: PREGABALIN 100 MG CAPSULE PO SCH (05:10)
[2017-01-26] MEDS: CEPHALEXIN 250 MG CAPSULE PO SCH ×2 (05:17→11:51)
[2017-01-26] MEDS: oxyCODONE 5 MG TABLET PO PRN ×2 (05:17→12:23)
[2017-01-26 05:53] LABS: BASOPHILS # (AUTO) 0.1 10^3/uL (0.0-0.1); BASOPHILS % (AUTO) 1.1 %; EOSINOPHILS # (AUTO) 0.4 10^3/uL (0.0-0.7); EOSINOPHILS % (AUTO) 4.8 %; HCT - HEMATOCRIT 39.7 % (37.0-47.0); HGB - HEMOGLOBIN 13.3 g/dL (12.0-16.0); LYMPHOCYTES # (AUTO) 3.6 10^3/uL (1.5-3.5); LYMPHOCYTES % (AUTO) 42.8 %; MEAN CORPUSCULAR HEMOGLOBIN 29.5 pg (27.0-31.0); MEAN CORPUSCULAR HGB CONC 33.6 g/dL (32.0-36.0); MEAN CORPUSCULAR VOLUME 87.8 fL (81.0-99.0); MEAN PLATELET VOLUME 8.5 fL (7.9-10.8); MONOCYTES # (AUTO) 0.9 10^3/uL (0.0-1.0); MONOCYTES % (AUTO) 10.8 %; NEUTROPHILS # (AUTO) 3.5 10^3/uL (1.5-6.6); NEUTROPHILS % (AUTO) 40.5 %; NUCLEATED RED BLOOD CELLS AUTO 0.1 /100WBC; RED BLOOD COUNT 4.52 10^6/uL (4.20-5.40); RED CELL DISTRIBUTION WIDTH 13.3 % (12.0-15.0); UNCORRECTED WHITE BLOOD COUNT 8.5 x10^3/uL; WHITE BLOOD COUNT 8.5 x10^3/uL (4.8-10.8)
[2017-01-26] MEDS: PANTOPRAZOLE 40 MG TABLET PO SCH (06:05)
[2017-01-26] MEDS: SODIUM CHLORIDE 0.9% 1,000 ML IV SCH (06:05)
[2017-01-26] MEDS: SODIUM CHLORIDE FLUSH 0.9% 10 ML SYRINGE IVP SCH (06:05)
[2017-01-26 06:19] LABS: ALBUMIN/GLOBULIN RATIO 1.3 (1.0-2.2); BILIRUBIN,TOTAL 0.5 mg/dL (0.2-1.0); CALCIUM 9.8 mg/dL (8.5-10.3); CREATININE 0.6 mg/dL (0.4-1.0); MAGNESIUM 1.5 mg/dL (1.7-2.8); PHOSPHORUS 3.1 mg/dL (2.5-4.6); POTASSIUM 3.5 mmol/L (3.5-5.0); TOTAL PROTEIN 7.3 g/dL (6.7-8.2)
[2017-01-26] MEDS: POTASSIUM CHLORIDE 20 MEQ TABLET PO SCH (08:30)
[2017-01-26] MEDS: METHOCARBAMOL 500 MG TABLET PO SCH (08:32)
[2017-01-26] MEDS: levETIRAcetam 250 MG TABLET PO SCH (08:32)
[2017-01-26] MEDS: LORATADINE 10 MG TABLET PO SCH (08:33)
[2017-01-26] MEDS: CARVEDILOL 3.125 MG TABLET PO SCH (08:33)
[2017-01-26] MEDS: POLYETHYLENE GLYCOL 3350 17 GM PACKET PO SCH (08:34)
[2017-01-26] MEDS: ENOXAPARIN 40 MG/0.4 ML SYRINGE SUBQ SCH (08:34)
[2017-01-26] MEDS: NYSTATIN CREAM 15 GM TUBE TOP SCH (08:34)
[2017-01-26] MEDS: FLUTICASONE NASAL SPRAY NAS SCH (08:35)
[2017-01-26 08:59] VITALS: BP 121/80
--- NOTE | 2017-01-26 11:14 | Discharge Plan ---
Discharge Plan Disposition: Home, Self Care Condition: Good Prescriptions: Cephalexin [Keflex] 250 mg PO Q6HR #16 capsule Potassium Chloride [K-Dur] 20 meq PO DAILYWM #15 tablet Phenazopyridine [Pyridium] 100 mg PO TID #6 tablet Diet: Regular Activity Restrictions: Activity as Tolerated Shower Restrictions: No Driving Restrictions: No Additional Instructions or Follow Up instructions: You were initially placed in observation to see if your early small bowel obstruction would resolve. It didn't; so we needed to change your status to regular inpatient care for the next 3 days. Your bowel was able to open up on its own without having to do surgery. We wanted to do an upper GI with small bowel follow-through on the day of discharge but unfortunately you have had something to eat this morning and the test was canceled. You have an appointment with your primary care provider, INGRID Obrien on Thursday (today is Thursday). Please ask her to schedule an outpatient upper GI with small bowel follow-through. While here you were also diagnosed with a urinary tract infection. The bacteria is sensitive to Keflex. As such we are asking you to finish a few more days of Keflex to complete her therapy No Smoking: If you smoke, Please STOP! Call for help.
[2017-01-26] MEDS: SODIUM CHLORIDE FLUSH 0.9% 10 ML SYRINGE IVP PRN (11:46)
[2017-01-26] MEDS: PROCHLORPERAZINE 10 MG/2 ML VIAL IVP PRN (11:51)
--- NOTE | 2017-01-26 11:56 | PROVIDER PROGRESS NOTE ---
Assessment/Plan - Problem List (1) Abdominal pain Assessment/Plan: 51 yo female with multiple medical problems including abdominal pain which has improved, now having bm's. Patient condition improved, benign abdominal exam. Small bowel follow through to be performed. Pending results likely stable for d/c planning - Current Meds Current Meds: Current Medications Generic Name Dose Route Start Last Admin Trade Name Freq PRN Reason Stop Dose Admin Acetaminophen/Butalbital/Caffeine 1 tab 01/23/17 05:00 01/26/17 03:02 Fioricet PO 1 tab Q6H PRN Administration HEADACHE Carvedilol 6.25 mg 01/23/17 09:00 01/26/17 08:33 Coreg PO 6.25 mg BID PADMA Administration Cephalexin 250 mg 01/25/17 13:00 01/26/17 11:51 Keflex PO 250 mg Q6HR PADMA Administration Enoxaparin Sodium 40 mg 01/23/17 09:00 01/26/17 08:34 Lovenox SUBQ 40 mg DAILY PADMA Administration Fentanyl 1 patch 01/23/17 05:00 01/26/17 05:10 Duragesic TOP 1 patch Q72H PADMA Administration Fluticasone Propionate 0 sprays 01/23/17 09:00 01/26/17 08:35 Flonase LINDSEY 1 spr DAILY [facility] Administration Sodium Chloride 1,000 mls @ 125 mls/hr 01/23/17 03:00 01/26/17 06:05 Normal Saline 0.9% IV 125 mls/hr .Q8H PADMA Administration Levetiracetam 1,500 mg 01/23/17 09:00 01/26/17 08:32 Keppra PO 1,500 mg BID PADMA Administration Loratadine 20 mg 01/23/17 09:00 01/26/17 08:33 Claritin PO 20 mg DAILY [facility] Administration Methocarbamol 750 mg 01/23/17 09:00 01/26/17 08:32 Robaxin PO 750 mg QID PADMA Administration Morphine Sulfate 2 mg 01/23/17 02:03 01/26/17 11:45 Morphine IVP 2 mg Q2HR PRN Administration Pain 8 to 10 Nystatin 0 applic 01/23/17 09:00 01/26/17 08:34 Mycostatin Cream TOP Not Given BID PADMA Ondansetron HCl 4 mg 01/23/17 02:03 01/26/17 02:13 Zofran Inj IVP 4 mg Q6HR PRN Administration Nausea / Vomiting Oxycodone HCl 5 mg 01/23/17 02:03 01/25/17 01:24 Roxicodone PO 5 mg Q4HR PRN Administration Pain 5 to 7 Oxycodone HCl 10 mg 01/23/17 02:03 01/26/17 05:17 Roxicodone PO 10 mg Q4HR PRN Administration Pain 8 to 10 Pantoprazole Sodium 40 mg 01/23/17 07:00 01/26/17 06:05 Protonix PO 40 mg QDAC PADMA Administration Phenazopyridine HCl 100 mg 01/24/17 15:00 01/26/17 05:10 Pyridium PO 100 mg TID PADMA Administration Phenytoin Sodium 400 mg 01/23/17 21:00 01/25/17 20:12 Dilantin PO 400 mg QPM PAD[facility] Administration Polyethylene Glycol 17 gm 01/23/17 09:00 01/26/17 08:34 Miralax PO Not Given DAILY [facility] Potassium Chloride 20 meq 01/25/17 09:00 01/26/17 08:30 K-Dur PO 20 meq DAILYWM PAD[facility] Administration Pregabalin 100 mg 01/23/17 06:00 01/26/17 05:10 Lyrica PO 100 mg TID PADMA Administration Prochlorperazine Edisylate 10 mg 01/23/17 02:03 01/26/17 11:51 Compazine Inj IVP 10 mg Q6HR PRN Administration Nausea / Vomiting Sodium Chloride 10 ml 01/23/17 02:03 01/26/17 11:46 Normal Saline Flush 0.9% IVP 10 ml PRN PRN Administration NEEDED PER PROVIDER ORDERS Sodium Chloride 10 ml 01/23/17 06:00 01/26/17 06:05 Normal Saline Flush 0.9% IVP 10 ml Q8HR PADMA Administration Tamsulosin HCl 0.4 mg 01/23/17 17:30 01/24/17 21:03 Flomax PO 0.4 mg DAILY@1730 PRN Administration KIDNEYSTONE - Lab Result Lab results reviewed: Yes Fish Bone Diagrams: 01/26/17 05:35 01/26/17 05:35 - Additional Planning Condition/Complexity: Stable Subjective - Subjective Patient Reports: Feeling Better, Resting Comfortably (Patient seen at bedside, She states she is feeling much better with occasional right sided pain much improved. She is having BM's and urinating well. No issues reported by RN.) Nursing Reports: No Complaints Objective Vital Signs: Vital Signs - 24 hr 01/25/17 01/26/17 01/26/17 16:00 00:20 08:00 Temperature 36.4 C L 36.9 C 36.5 C Heart Rate [ 70 72 72 Brachial] Respiratory 18 16 16 Rate Blood Pressure 157/92 H 121/80 [Left Brachial artery] Blood Pressure 113/76 [Left Radial artery] O2 Saturation 100 99 98 Oxygen O2 Source Room air I&O (Last 24 Hrs): Intake and Output Totals x24h 01/24/17 01/25/17 01/26/17 23:59 23:59 23:59 Intake Total 1050 2890 1572 Output Total 700 Balance 350 2890 1572 General: Alert, Oriented x3 HEENT: PERRLA, EOMI Neuro: Alert Cardiovascular: Regular rate Respiratory: Breath sounds nml Abdomen: Normal bowel sounds, Soft - Results Results: Laboratory Results WBC 8.5 x10^3/uL (4.8-10.8) 01/26/17 05:35 RBC 4.52 10^6/uL (4.20-5.40) 01/26/17 05:35 Hgb 13.3 g/dL (12.0-16.0) 01/26/17 05:35 Hct 39.7 % (37.0-47.0) 01/26/17 05:35 MCV 87.8 fL (81.0-99.0) 01/26/17 05:35 MCH 29.5 pg (27.0-31.0) 01/26/17 05:35 MCHC 33.6 g/dL (32.0-36.0) 01/26/17 05:35 RDW 13.3 % (12.0-15.0) 01/26/17 05:35 Plt Count 302 10^3/uL (130-450) 01/26/17 05:35 MPV 8.5 fL (7.9-10.8) 01/26/17 05:35 Neut # 3.5 10^3/uL (1.5-6.6) 01/26/17 05:35 Lymph # 3.6 10^3/uL (1.5-3.5) H 01/26/17 05:35 [place] # 0.9 10^3/uL (0.0-1.0) 01/26/17 05:35 Eos # 0.4 10^3/uL (0.0-0.7) 01/26/17 05:35 Baso # 0.1 10^3/uL (0.0-0.1) 01/26/17 05:35 Absolute Nucleated RBC 0.01 x10^3/uL 01/26/17 05:35 Nucleated RBCs 0.1 /100WBC 01/26/17 05:35 Sodium 141 mmol/L (135-145) 01/26/17 05:35 Potassium 3.5 mmol/L (3.5-5.0) 01/26/17 05:35 Chloride 106 mmol/L (101-111) 01/26/17 05:35 Carbon Dioxide 26 mmol/L (21-32) 01/26/17 05:35 Anion Gap 9.0 (6-13) 01/26/17 05:35 BUN 10 mg/dL (6-20) 01/26/17 05:35 Creatinine 0.6 mg/dL (0.4-1.0) 01/26/17 05:35 Estimated GFR (MDRD) 105 (>89) 01/26/17 05:35 Glucose 123 mg/dL (70-100) H 01/26/17 05:35 Lactic Acid 1.4 mmol/L (0.5-2.2) 01/22/17 23:09 Calcium 9.8 mg/dL (8.5-10.3) 01/26/17 05:35 Phosphorus 3.1 mg/dL (2.5-4.6) 01/26/17 05:35 Magnesium 1.5 mg/dL (1.7-2.8) L 01/26/17 05:35 Total Bilirubin 0.5 mg/dL (0.2-1.0) 01/26/17 05:35 AST 20 IU/L (10-42) 01/26/17 05:35 ALT 28 IU/L (10-60) 01/26/17 05:35 Alkaline Phosphatase 121 IU/L (42-121) 01/26/17 05:35 Troponin I < 0.04 ng/mL (<0.49) 01/22/17 23:09 Total Protein 7.3 g/dL (6.7-8.2) 01/26/17 05:35 Albumin 4.1 g/dL (3.2-5.5) 01/26/17 05:35 Globulin 3.2 g/dL (2.1-4.2) 01/26/17 05:35 Albumin/Globulin Ratio 1.3 (1.0-2.2) 01/26/17 05:35 Lipase 46 U/L (22-51) 01/22/17 23:09 TSH 4.27 uIU/mL (0.34-5.60) 01/25/17 05:55 Urine Color YELLOW 01/22/17 23:34 Urine Clarity HAZY (CLEAR) 01/22/17 23:34 Urine pH 6.0 PH (5.0-7.5) 01/22/17 23:34 Ur Specific [place] 1.020 (1.002-1.030) 01/22/17 23:34 Urine Protein 30 mg/dL (NEGATIVE) H 01/22/17 23:34 Urine Glucose (UA) NEGATIVE mg/dL (NEGATIVE) 01/22/17 23:34 Urine Ketones NEGATIVE mg/dL (NEGATIVE) 01/22/17 23:34 Urine Occult Blood SMALL (NEGATIVE) H 01/22/17 23:34 Urine Nitrite POSITIVE (NEGATIVE) H 01/22/17 23:34 Urine Bilirubin NEGATIVE (NEGATIVE) 01/22/17 23:34 Urine Urobilinogen 1 (NORMAL) E.U./dL (NORMAL) 01/22/17 23:34 Ur Leukocyte Esterase SMALL (NEGATIVE) H 01/22/17 23:34 Urine RBC 6-10 /HPF (0-5) H 01/22/17 23:34 Urine WBC >25 /HPF (0-5) H 01/22/17 23:34 Ur Squamous Epith Cells FEW Squamous (<= Few) 01/22/17 23:34 Urine Bacteria Moderate /HPF (None Seen) H 01/22/17 23:34 Urine Casts 3-5 Hyaline Casts /LPF 01/22/17 23:34 Ur Microscopic Review INDICATED 01/22/17 23:34 Urine Culture Comments INDICATED 01/22/17 23:34 - Procedures Procedures: Procedures INSERTION OF INFUSION DEV INTO SUP VENA CAVA, PERC APPROACH (09/05/15)
--- NOTE | 2017-01-26 13:57 | DISCHARGE SUMMARY ---
DATE OF ADMISSION: 01/23/2017 DATE OF DISCHARGE: 01/26/2017 PRIMARY CARE PROVIDER: INGRID Townsend, in [place]. DISCHARGE DIAGNOSES 1. Partial small-bowel obstruction. 2. Urinary tract infection with Enterobacter aerogenes. 3. Hypertension. 4. Chronic pain syndrome from left hip. 5. Hypothyroidism. 6. Hyperlipidemia. 7. Seizure disorder. DISCHARGE MEDICATIONS New medications 1. Keflex 250 mg p.o. q.6h. for 16 more tablets. 2. Potassium 20 mEq once a day for 15 more tablets. 3. Pyridium 100 mg p.o. t.i.d. for 6 more tablets. Resuming medications 4. Cetirizine 10 mg p.o. daily p.r.n. 5. Chlorthalidone 50 mg p.o. daily. 6. Compazine 10 mg p.o. t.i.d. p.r.n. 7. Desyrel 50-150 mg p.o. q.p.m. 8. Butalbital 1 tablet b.i.d. as needed. 9. Gemfibrozil 600 mg p.o. b.i.d. a.c. 10. Methocarbamol 750 mg p.o. t.i.d. p.r.n. 11. Norvasc 10 mg p.o. daily. 12. Omeprazole 20 mg p.o. daily. 13. Prozac 20 mg p.o. daily. 14. Oxycodone with acetaminophen 5/325 one-half to one tablet t.i.d. 15. Topamax 25 mg p.o. q.p.m. PRINCIPAL PROCEDURES Abdomen and pelvis CAT scan showing small to moderate hiatal hernia, nonobstructing left renal stone, gallbladder surgically absent, mildly prominent small bowel loops in left mid abdomen with proximal bowel and distal bowel decompressed. Previous lumbar fusion. KUB in followup showed unremarkable plain film with no gross bowel obstruction. HOSPITAL COURSE: She is a 51-year-old white female who has a history of multiple abdominal surgeries for multiple small-bowel obstructions. She presents with a gradually increasing abdominal distention over the last 2 months. She usually has diarrhea but at one point she even became constipated and needed an enema. Accompanying this gradually increased distention is workup with her bread packer and they have been trying to do a gastric emptying study, but has been unsuccessful because of emesis. She has had an EGD that showed stomach ulcers. She had an abrupt onset of mid epigastric abdominal pain associated with nausea and vomiting on the evening of admission. It was initially undigested food, then more bilious. She has no fever, no chills. Pain was a sharp 10/10 when she came to the emergency room. She has not had a bowel movement since the day before yesterday. No diarrhea. Considering her previous history of ovarian cancer with hysterectomy, small bowel obstructions, chemotherapy and radiation to the pelvis, we were suspecting another bowel obstruction. She did not have a fever and white cell count was initially mildly elevated at 16.2. Also identified was a urinary tract infection. She was also hypokalemic. Small-bowel obstruction was treated with expected observation. She did not want an NG because she hates the experience and we left that out. With antiemetics, pain medicines, and IV hydration, her bowel gradually opened up to the point that she was passing gas, as well as had a bowel movement. She was started on clear liquids and advanced and tolerated that well. On the day of discharge, we hoped to do an upper GI with small bowel follow-through because we still feel that she may have an impending bowel obstruction down the road. However, she had eaten breakfast, so was unable to do the upper GI with small bowel follow- through. We are hoping that she will follow up with her primary care provider, Judith Hagan, and Ms. Hagan will then order the upper GI small bowel follow-through in the outpatient setting. Will also let her bread packer at [facility] know. With regards to her urinary tract infection, Enterobacter cloacae was identified. During her stay, she was on Rocephin. She was transitioned to Keflex without any difficulty. When she came in to the hospital, she was actually on Levaquin. The Enterobacter is sensitive to the Levaquin, but because she was staying in therapy, we opted to just keep her on Keflex. She was requesting Pyridium for dysuria and that was given to her during the inpatient setting and she is at home with 6 more doses. She was noted to be mildly hypokalemic during her stay, needing potassium supplementation, and she is sent home on potassium orally and we would ask Ms. Hagan to please do a potassium check in about a week. On the day of discharge, temperature was 36.5. Pulse is 72, blood pressure 121/ 80, respirations 16, 98% on room air. She is a short stature, moderately overweight, middle-aged female, cheerful attitude. Lungs are clear. Regular rate and rhythm. The abdomen is obese, soft, not distended, mildly achy diffusely, but not really tender. Normal bowel sounds. She had no edema. She is ambulating in her room, eating her food without any problems. Dr. Peña saw her today. He is consulted from General Surgery and felt she was also stable to go home. Greater than 30 minutes were spent coordinating discharge with the patient, radiology, Dr. Peña. JOB #: [id number] EXT JOB #:[id number] ADDENDUM During her stay, we monitored her blood pressure since she was n.p.o. and then p.o. Blood pressure remained controlled and she received IV medications and then transitioned to oral medications. We also did a followup TSH and TSH is 4.27. She has a known history of seizure disorder and no seizures were noted during her stay. TABITHA
== END 2017-01-26 12:30 | disposition home or self-care (01) | DRG 389 ==
LOC: EDUNIT# → ED 22:34 → MS 01-23 02:04 → OBSVTOIN 01-23 15:15
PROVIDERS: ADMIT Internal Medicine; ATTEND Specialist
PROC: 02HV33Z Insertion of Infusion Device into Superior Vena Cava, Percutaneous Approach (ICD-10-PCS; principal; 2017-01-23)
DX: K56.60 Unspecified intestinal obstruction (principal); N30.00 Acute cystitis without hematuria; B96.89 Other specified bacterial agents as the cause of diseases classified elsewhere; I10 Essential (primary) hypertension; E78.00 Pure hypercholesterolemia, unspecified; E87.6 Hypokalemia; E03.9 Hypothyroidism, unspecified; M54.9 Dorsalgia, unspecified; M19.90 Unspecified osteoarthritis, unspecified site; J45.909 Unspecified asthma, uncomplicated; Z87.01 Personal history of pneumonia (recurrent); Z86.73 Personal history of transient ischemic attack (TIA), and cerebral infarction without residual deficits; Z87.828 Personal history of other (healed) physical injury and trauma; Z87.442 Personal history of urinary calculi; Z96.649 Presence of unspecified artificial hip joint; E87.8 Other disorders of electrolyte and fluid balance, not elsewhere classified; G89.29 Other chronic pain; M25.552 Pain in left hip; F32.9 Major depressive disorder, single episode, unspecified; G40.909 Epilepsy, unspecified, not intractable, without status epilepticus; E78.5 Hyperlipidemia, unspecified; Z96.642 Presence of left artificial hip joint; Z79.891 Long term (current) use of opiate analgesic; Z79.899 Other long term (current) drug therapy; Z98.1 Arthrodesis status; Z87.891 Personal history of nicotine dependence; Z85.43 Personal history of malignant neoplasm of ovary; Z92.21 Personal history of antineoplastic chemotherapy; Z92.3 Personal history of irradiation; Z90.710 Acquired absence of both cervix and uterus
CPT/HCPCS: 36415; 71010; 74000; 74176; 80053; 81001; 81003; 83605; 83690; 83735; 84100; 84443; 84484; 85025; 87077; 87086; 96365; 96372; 96374; 96375; 96376; 99284; 99285

== ENCOUNTER 2017-01-30 11:51 | Outpatient (CLI) | payer MEDICARE, MEDICAID | END 2017-01-30 11:52 | disposition critical access hospital (66) | LOC: EMS 11:51 | PROVIDERS: ATTEND Surgery | DX: R41.0 Disorientation, unspecified (principal) | CPT/HCPCS: A0425; A0429 ==

== ENCOUNTER 2017-01-30 12:09 | Observation (INO) | payer MEDICARE, MEDICAID ==
--- NOTE | 2017-01-30 12:24 | ED Physician Documentation ---
History of Present Illness - Stated complaint Stated Complaint: CONFUSION/D/V - Chief complaint Chief Complaint: General - Additonal information Additional information: hx from EMS and pt 51 f hx seizures, ovarian cancer s/p hyst appy sophie and chronic naroctic use for hip pain admitted to [facility] 01/23-01/26 for partial SBO per EMS she is altered today, per EMS onset of sx is unknown, unknown if she had a seisure, unknown if she might have fallen, only known new med is keflex pt denies STACY CP, does have abd pain, had NV X 2 and diarrhea X 1 today, no urinary sx Review of Systems Constitutional: denies: Fever, Chills Throat: denies: Sore throat Cardiac: denies: Chest pain / pressure Respiratory: denies: Dyspnea, Cough GI: reports: Abdominal Pain, Nausea, Vomiting, Diarrhea : denies: Dysuria Skin: reports: Rash (psoriasis not new) Neurologic: reports: Altered mental status. denies: Focal weakness, Headache Endocrine: denies: Easy bruising / bleeding Immunocompromised: denies: Immunocompromised PD PAST MEDICAL HISTORY - Past Medical History Past Medical History: Yes Cardiovascular: High cholesterol Respiratory: Asthma, Pneumonia Neuro: CVA, Headache/migraine, Head injury, Seizure disorder, Other Endocrine/Autoimmune: HyPOthyroidism, Other GI: C.difficile NATIONAL ACCOUNT EXECUTIVE: None : Renal insuffiency, Kidney stones HEENT: None Psych: Depression Musculoskeletal: Osteoarthritis, Chronic back pain, Other Derm: Other drug resistant infections - Past Surgical History Past Surgical History: Yes General: Appendectomy Ortho: Hip replacement, Spine surgery /NATIONAL ACCOUNT EXECUTIVE: 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, Oophrectomy - Present Medications Home Medications: Ambulatory Orders Medication Instructions Recorded Confirmed Butalb/Acetam/Caff 50/325/40 2 tab PO BID PRN 04/04/13 01/30/17 [Fioricet] Oxycodone HCl/Acetaminophen 2.5 tab PO DAILY 10/14/16 01/30/17 [Percocet 5-325 mg Tablet] traZODone [Desyrel] 50 - 150 mg PO QPM PRN 10/14/16 01/30/17 Carvedilol [Coreg] 6.25 mg PO BID tablet 10/15/16 01/30/17 Phenytoin [Dilantin] 400 mg PO QPM capsule 10/15/16 01/30/17 fentaNYL 50 MCG PATCH [Duragesic 1 patch TOP Q72H patch 10/15/16 01/30/17 50mcg patch] levETIRAcetam [Keppra] 1,500 mg PO BID tablet 10/15/16 01/30/17 Chlorthalidone 50 mg ORAL DAILY 01/23/17 01/30/17 FLUoxetine [PROzac] 20 mg PO DAILY 01/23/17 01/30/17 Gemfibrozil 600 mg PO BIDAC 01/23/17 01/30/17 Methocarbamol 750 mg PO TID PRN 01/23/17 01/30/17 Omeprazole 20 mg ORAL BIDAC 01/23/17 01/30/17 amLODIPine [Norvasc] 10 mg PO DAILY 01/23/17 01/30/17 Cephalexin [Keflex] 250 mg PO Q6HR #16 capsule 01/26/17 01/30/17 Bromelains 1,000 mg PO DAILY 01/30/17 01/30/17 Loperamide HCl [Anti-Diarrheal] 2 mg PO BID PRN 01/30/17 01/30/17 Pregabalin [Lyrica] 300 mg PO TID 01/30/17 01/30/17 Prochlorperazine [Compazine] 8 mg PO TID 01/30/17 01/30/17 diphenhydrAMINE [Benadryl] 25 mg PO Q4-6H 01/30/17 01/30/17 - Allergies Allergies/Adverse Reactions: Allergies Allergy/AdvReac Type Severity Reaction Status Date / Time Penicillins Allergy Severe Respiratory Verified 01/22/17 22:36 bacitracin Allergy Mild Hives Verified 01/22/17 22:36 [From Neosporin ([id number])] bacitracin zinc * Allergy Mild Itching Verified 01/22/17 22:36 [From Neosporin ([id number])] neomycin sulfate * Allergy Mild Itching Verified 01/22/17 22:36 [From Neosporin ([id number])] venom-honey bee Allergy Unknown Verified 01/22/17 22:36 [bee venom (honey bee)] ciprofloxacin AdvReac Emesis Verified 01/22/17 22:36 - Social History Does the pt smoke?: No Smoking Status: Former smoker Does the pt drink ETOH?: No Does the pt have substance abuse?: No - Immunizations Immunizations are current?: Yes - POLST Patient has POLST: No POLST Status: Full Code PD ED PE NORMAL - Vitals Vital signs reviewed: Yes - General General: No: Alert and oriented X 3 (X 2, slow to answer) - HEENT HEENT: Atraumatic, PERRL - Neck Neck: Supple, no meningeal sign - Cardiac Cardiac: RRR - Respiratory Respiratory: No respiratory distress - Abdomen Abdomen: Soft, Other (mild lower abd TTP) - Derm Derm: Normal color - Neuro Neuro: fueler 2-12 intact, No motor deficit, No sensory deficit, Normal speech. No : Alert and oriented X 3 (X 2) Results - Vitals Vitals: Vital Signs - 24 hr 01/30/17 01/30/17 01/30/17 12:11 13:27 14:00 Temperature 36.7 C Heart Rate 68 61 Respiratory 16 16 Rate Blood Pressure 145/100 H 97/72 110/67 O2 Saturation 98 96 01/30/17 14:19 Temperature Heart Rate 60 Respiratory 16 Rate Blood Pressure 123/75 O2 Saturation 98 Oxygen O2 Source Room air - Labs Labs: Laboratory Tests 01/30/17 01/30/17 01/30/17 13:15 13:15 13:15 WBC 6.1 RBC 4.51 Hgb 13.3 Hct 39.7 MCV 88.0 MCH 29.6 MCHC 33.6 RDW 13.0 Plt Count 264 MPV 8.0 Neut # 2.6 Lymph # 2.6 Eagle # 0.5 Eos # 0.3 Baso # 0.1 Absolute Nucleated RBC 0.00 Nucleated RBCs 0.1 Sodium 137 Potassium 3.3 L Chloride 102 Carbon Dioxide 25 Anion Gap 10.0 BUN 11 Creatinine 0.7 Estimated GFR (MDRD) 88 L Glucose 109 H Lactic Acid 1.4 Calcium 10.8 H Total Bilirubin 0.5 AST 20 ALT 19 Alkaline Phosphatase 119 Total Protein 7.4 Albumin 4.3 Globulin 3.1 Albumin/Globulin Ratio 1.4 Lipase < 10 L Urine Color Urine Clarity Urine pH Ur Specific [place] Urine Protein Urine Glucose (UA) Urine Ketones Urine Occult Blood Urine Nitrite Urine Bilirubin Urine Urobilinogen Ur Leukocyte Esterase Urine RBC Urine WBC Ur Squamous Epith Cells Urine Bacteria Ur Microscopic Review Urine Culture Comments Urine Opiates Screen Ur Oxycodone Screen Urine Methadone Screen Ur Propoxyphene Screen Ur Barbiturates Screen Phenytoin Ur Tricyclics Screen Ur Phencyclidine Scrn Ur Amphetamine Screen U Methamphetamines Scrn U Benzodiazepines Scrn Urine Cocaine Screen U Cannabinoids Screen Ethyl Alcohol < 5.0 01/30/17 01/30/17 01/30/17 13:15 13:15 13:15 WBC RBC Hgb Hct MCV MCH MCHC RDW Plt Count MPV Neut # Lymph # Eagle # Eos # Baso # Absolute Nucleated RBC Nucleated RBCs Sodium Potassium Chloride Carbon Dioxide Anion Gap BUN Creatinine Estimated GFR (MDRD) Glucose Lactic Acid Calcium Total Bilirubin AST ALT Alkaline Phosphatase Total Protein Albumin Globulin Albumin/Globulin Ratio Lipase Urine Color YELLOW Urine Clarity CLEAR Urine pH 8.0 H Ur Specific [place] 1.010 Urine Protein NEGATIVE Urine Glucose (UA) NEGATIVE Urine Ketones NEGATIVE Urine Occult Blood SMALL H Urine Nitrite NEGATIVE Urine Bilirubin NEGATIVE Urine Urobilinogen 0.2 (NORMAL) Ur Leukocyte Esterase NEGATIVE Urine RBC 0-5 Urine WBC 0-3 Ur Squamous Epith Cells RARE Squamous Urine Bacteria None Seen Ur Microscopic Review INDICATED Urine Culture Comments NOT INDICATED Urine Opiates Screen NEGATIVE Ur Oxycodone Screen NEGATIVE Urine Methadone Screen NEGATIVE Ur Propoxyphene Screen NEGATIVE Ur Barbiturates Screen POSITIVE H Phenytoin < 2.5 Ur Tricyclics Screen NEGATIVE Ur Phencyclidine Scrn NEGATIVE Ur Amphetamine Screen NEGATIVE U Methamphetamines Scrn NEGATIVE U Benzodiazepines Scrn NEGATIVE Urine Cocaine Screen NEGATIVE U Cannabinoids Screen NEGATIVE Ethyl Alcohol PD MEDICAL DECISION MAKING - ED course ED course: u tox + barbituates is 2/2 cross + from dilantin and perhaps fioricet surprisingly tox is neg for opiates despite pt having her fentanyl patch on right now dilantin level is low CTH neg - no mass shift bleed no reported trauma or seizure activity per daughter when she arrived pt denies STACY and is afebrile no neck stiffness doubt meningitis daughter arrived and states her moth freq acts like this when she has an infection, usually UTI, once was septic - added on UA (neg for infection) CT abd pelvis (no acute process) and CXR (no acute) and examined her previously infected L hip (mild TTP daughter states common but sherry redness or warmth or swelling) hypercalcemia is new but mild and I doubt would be the etiology of todays symptoms - but merits follow up etiology unclear but pt is clearly far opff her baseline will ask hospitalist to obs for further eval and management Departure - Departure Disposition: ED Place in Observation Clinical Impression: Altered mental state Qualifiers: Altered mental status type: disorientation Qualified Code(s): R41.0 - Disorientation, unspecified Condition: Fair Comments: You had an elevated calcium level today - there are numerous reasons for this to occur - please follow up with your PMD for further evaluation NIHSS - Time Time: 14:40 - Level of Consciousness Level of consciousness: (0) Alert, Keenly responsive LOC Questions: (1) Answers one Q correctly LOC Commands: (0) Performs both correctly - Gaze Best Gaze: (0) Normal - Visual Visual: (0) No loss - Facial Palsy Facial Palsy: (0) Normal, symmetrical movement - Motor Arms (both separate) Motor Arm (right): (0) No drift Motor Arm (left): (0) No drift - Motor Legs (both separate) Motor Leg (right): (0) No drift Motor Leg (left): (0) No drift - Limb Ataxia Limb Ataxia: (0) Absent - Sensory Sensory: (0) Normal - Best Language Best Language: (0) No aphasia - Dysarthria Dysarthria: (0) Normal - Extinction and Inattention (formally neg Extinction and inattention: (0) No abnormality - Total Score/Results Total Score/Result: 1
--- NOTE | 2017-01-30 13:05 | CT Preliminary Report ---
Exam: CT Head W/O IMPRESSION: Normal head CT. [facility] SITE ID: [id number]
--- NOTE | 2017-01-30 13:07 | CT Report ---
EXAM: CT HEAD EXAM DATE: 01/30/2017 12:52 PM. CLINICAL HISTORY: AMS. COMPARISON: 11/09/2014. TECHNIQUE: Multiaxial CT images were obtained from the foramen magnum to the vertex. IV contrast: Non e. Reformats: Coronal. In accordance with CT protocol optimization, one or more of the following dose reduction techniques w ere utilized for this exam: automated exposure control, adjustment of mA and/or KV based on patient s ize, or use of iterative reconstructive technique. FINDINGS: Parenchyma: No intraparenchymal hemorrhage. No evidence of mass, midline shift, or CT findings of inf arction. Pablo-white differentiation is distinct. Extraaxial Spaces: Normal for age. No subdural or epidural collections identified. Ventricles: Normal in size and position. Sinuses: Imaged paranasal sinuses, orbits, and mastoids show no significant abnormality. Bones: No evidence of fracture or calvarial defect. Other: None. IMPRESSION: Normal head CT. [facility] Referring Provider Line: [phone] SITE ID: [id number]
[2017-01-30 13:23] LABS: BASOPHILS # (AUTO) 0.1 10^3/uL (0.0-0.1); BASOPHILS % (AUTO) 0.9 %; EOSINOPHILS # (AUTO) 0.3 10^3/uL (0.0-0.7); EOSINOPHILS % (AUTO) 5.1 %; HCT - HEMATOCRIT 39.7 % (37.0-47.0); HGB - HEMOGLOBIN 13.3 g/dL (12.0-16.0); LYMPHOCYTES # (AUTO) 2.6 10^3/uL (1.5-3.5); LYMPHOCYTES % (AUTO) 43.6 %; MEAN CORPUSCULAR HEMOGLOBIN 29.6 pg (27.0-31.0); MEAN CORPUSCULAR HGB CONC 33.6 g/dL (32.0-36.0); MONOCYTES # (AUTO) 0.5 10^3/uL (0.0-1.0); MONOCYTES % (AUTO) 7.5 %; NEUTROPHILS # (AUTO) 2.6 10^3/uL (1.5-6.6); NEUTROPHILS % (AUTO) 42.9 %; NUCLEATED RED BLOOD CELLS AUTO 0.1 /100WBC; RED BLOOD COUNT 4.51 10^6/uL (4.20-5.40); UNCORRECTED WHITE BLOOD COUNT 6.1 x10^3/uL; WHITE BLOOD COUNT 6.1 x10^3/uL (4.8-10.8)
[2017-01-30 13:29] LABS: BILIRUBIN,URINE NEGATIVE (NEGATIVE)
[2017-01-30 13:32] LABS: ALBUMIN/GLOBULIN RATIO 1.4 (1.0-2.2); BILIRUBIN,TOTAL 0.5 mg/dL (0.2-1.0); BUN - BLOOD UREA NITROGEN 11 mg/dL (6-20); CALCIUM 10.8 mg/dL (8.5-10.3); CARBON DIOXIDE - CO2 25 mmol/L (21-32); CHLORIDE 102 mmol/L (101-111); CREATININE 0.7 mg/dL (0.4-1.0); GFR - MDRD 88 (>89); GLUCOSE 109 mg/dL (70-100); POTASSIUM 3.3 mmol/L (3.5-5.0); SODIUM 137 mmol/L (135-145); TOTAL PROTEIN 7.4 g/dL (6.7-8.2)
[2017-01-30 13:34] LABS: UA w/ MICROSCOPIC CHARGE YES
[2017-01-30 13:38] LABS: LIPASE < 10 U/L (22-51)
[2017-01-30 13:52] LABS: UR CULTURE IF IND NOT INDICATED; WBC,URINE 0-3 /HPF (0-5)
[2017-01-30] MEDS ORDERED: oxyCOD/ACETAMIN 5 MG/325 MG TABLET PO STA (14:06)
--- NOTE | 2017-01-30 14:08 | CT Preliminary Report ---
Exam: CT Abdomen/Pelvis W/O IMPRESSION: 1. Nonobstructing left renal calcification. 2. Small bowel loops are fluid-filled but not significantly distended. Mild ileus [facility] SITE ID: [id number]
--- NOTE | 2017-01-30 14:11 | CT Report ---
EXAM: CT ABDOMEN AND PELVIS (CT KUB) EXAM DATE: 01/30/2017 12:52 PM. CLINICAL HISTORY: Increasing abd pain. COMPARISONS: 01/23/2017. TECHNIQUE: Routine axial helical CT imaging was performed through the abdomen and pelvis without IV c ontrast. Reconstructions: Coronal and sagittal. In accordance with CT protocol optimization, one or more of the following dose reduction techniques w ere utilized for this exam: automated exposure control, adjustment of mA and/or KV based on patient s ize, or use of iterative reconstructive technique. FINDINGS: Lung Bases: Small hiatal hernia Right Kidney/Ureter: Scarring right kidney. No stones, hydronephrosis or hydroureter. No perinephric fat stranding. Left Kidney/Ureter: 3 mm nonobstructing calcification upper pole. 4 mm density too small to character ize mid lateral. No hydronephrosis, or hydroureter. No perinephric fat stranding. Other Solid Organs: Noncontrast images of the solid organs are grossly unremarkable. Gallbladder/Bile Ducts: Post cholecystectomy. Peritoneal Cavity: No free fluid, free air or meliza adenopathy. Small bowel loops are fluid-filled bu t not distended. Largest diameter 1.9 cm Pelvic Organs: No bladder stones or wall thickening. Noncontrast images of the visualized pelvic orga ns are unremarkable. Vasculature: Unremarkable. Other: Postop left hip arthroplasty. IMPRESSION: 1. Nonobstructing left renal calcification. 2. Small bowel loops are fluid-filled but not significantly distended. Mild ileus [facility] Referring Provider Line: [phone] SITE ID: [id number]
[2017-01-30] MEDS ORDERED: oxyCOD/ACETAMIN 5 MG/325 MG TABLET PO ONE (14:16)
--- NOTE | 2017-01-30 14:52 | XRAY Preliminary Report ---
Exam: XR Chest 2 View PA/LAT IMPRESSION: Normal 2-view chest radiography. [facility] SITE ID: [id number]
--- NOTE | 2017-01-30 14:55 | XRAY Report ---
EXAM: CHEST RADIOGRAPHY EXAM DATE: 01/30/2017 02:20 PM. CLINICAL HISTORY: AMS ? infection. COMPARISON: 10/14/2016. TECHNIQUE: 2 views. FINDINGS: Lungs/Pleura: Clear. No effusion or pneumothorax. Mediastinum: Heart and mediastinal contours are unremarkable. Upper lobe vessels not distended. Other: None. IMPRESSION: Normal 2-view chest radiography. [facility] Referring Provider Line: [phone] SITE ID: [id number]
[2017-01-30] MEDS ORDERED: oxyCODONE 5 MG TABLET PO PRN (15:24)
[2017-01-30] MEDS ORDERED: ACETAMINOPHEN 325 MG TABLET PO PRN (15:24)
[2017-01-30] MEDS ORDERED: SODIUM CHLORIDE FLUSH 0.9% 10 ML SYRINGE IVP PRN (15:24)
[2017-01-30] MEDS ORDERED: ONDANSETRON 4 MG/2 ML VIAL IVP PRN (15:24)
[2017-01-30] MEDS ORDERED: LOPERAMIDE 2 MG CAPSULE PO PRN (15:34)
[2017-01-30] MEDS ORDERED: diphenhydrAMINE 25 MG CAPSULE PO PRN (16:00)
--- NOTE | 2017-01-30 16:00 | ED Physician Documentation ---
ED Addendum - Addendum Addendum: 01/30/17 15:59 I was asked by the RN to place a peripheral IV, she was tough for access and prior RN had tried and failed and pt admitted to being difficult for IV placement. A 20G standard PIV was placed in the right AC after chloraprep using real-time ultrasound guidance which flushed and yomaira well.
[2017-01-30] MEDS: SODIUM CHLORIDE 0.9% 1,000 ML IV SCH (17:24)
[2017-01-30] MEDS: PANTOPRAZOLE 40 MG TABLET PO SCH (17:28)
[2017-01-30] MEDS: GEMFIBROZIL 600 MG TABLET PO SCH (17:28)
--- NOTE | 2017-01-30 20:21 | MRI Preliminary Report ---
Exam: MRI Brain W/O Impression: 1. There is no evidence of acute or subacute cerebral infarction. 2. There is no significant white matter disease or evidence of brain mass. SITE ID: [id number]
[2017-01-30] MEDS ORDERED: PHENYTOIN ER 100 MG CAPSULE PO SCH (21:00)
[2017-01-30] MEDS: oxyCODONE 5 MG TABLET PO PRN ×2 (21:11→22:11)
[2017-01-30] MEDS: levETIRAcetam 250 MG TABLET PO SCH (21:54)
[2017-01-30] MEDS: CARVEDILOL 3.125 MG TABLET PO SCH (21:56)
[2017-01-30] MEDS: SODIUM CHLORIDE FLUSH 0.9% 10 ML SYRINGE IVP SCH (21:57)
[2017-01-30] MEDS: PREGABALIN 100 MG CAPSULE PO SCH (21:57)
--- NOTE | 2017-01-30 22:11 | MRI Report ---
EXAM: MRI BRAIN WITHOUT CONTRAST EXAM DATE: 01/30/2017 06:12 PM. CLINICAL HISTORY: Altered mental status COMPARISON: MRI of the brain without and with contrast 03/07/2014. TECHNIQUE: Multiplanar, multisequence T1-weighted and fluid-sensitive MR sequences of the brain were performed. Sequences optimized for routine evaluation. Other: None. IV Contrast: None. FINDINGS: The diffusion-weighted images are normal. There is no evidence of acute or subacute cerebral infarcti on. The pituitary and sella are normal. The craniocervical junction is normal. The corpus callosum i s of normal size and configuration. There is motion present on the axial T2 fast spin echo and axial T2 FLAIR images. The cerebral vascular flow voids are patent. The T2 axial FLAIR images are normal. The T2* sequence is normal. There is no evidence of subacute or chronic hemorrhage. There is minimal mucosal thickening at the base of the left maxillary sinus. There is deviation of th e nasal septum to the right with a moderate-sized bony spur abutting the lateral wall of the right na alfredito cavity. The optic nerves demonstrate symmetric signal intensity and size. The bilateral parotid spaces exhib it normal signal intensity. The cerebral vascular flow voids are patent. IMPRESSION: 1. There is no evidence of acute or subacute cerebral infarction. 2. There is no significant white matter disease or evidence of brain mass. Referring Provider Line: [phone] SITE ID: [id number]
[2017-01-31] MEDS: SODIUM CHLORIDE 0.9% 1,000 ML IV SCH (04:25)
[2017-01-31] MEDS: PREGABALIN 100 MG CAPSULE PO SCH (06:08)
[2017-01-31] MEDS: PANTOPRAZOLE 40 MG TABLET PO SCH (06:13)
[2017-01-31] MEDS: GEMFIBROZIL 600 MG TABLET PO SCH (06:13)
[2017-01-31] MEDS: SODIUM CHLORIDE FLUSH 0.9% 10 ML SYRINGE IVP SCH (06:15)
[2017-01-31] MEDS: levETIRAcetam 250 MG TABLET PO SCH (08:14)
[2017-01-31] MEDS: CARVEDILOL 3.125 MG TABLET PO SCH (08:15)
[2017-01-31] MEDS ORDERED: ENOXAPARIN 40 MG/0.4 ML SYRINGE SUBQ SCH (09:00)
[2017-01-31] MEDS ORDERED: CHLORTHALIDONE 25 MG TABLET PO SCH (09:00)
[2017-01-31] MEDS ORDERED: POLYETHYLENE GLYCOL 3350 17 GM PACKET PO SCH (09:00)
[2017-01-31] MEDS ORDERED: BROMELAINS PO SCH (09:00)
[2017-01-31] MEDS ORDERED: FLUoxetine 10 MG CAPSULE PO SCH (09:00)
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
--- NOTE | 2017-01-31 11:07 | Discharge Plan ---
Discharge Plan Disposition: 01 Home, Self Care Condition: Good Diet: Regular Shower Restrictions: No Assistance Devices: Wheelchair Weight Bearing: No Weight Additional Instructions or Follow Up instructions: You had an elevated calcium level today - there are numerous reasons for this to occur - please follow up with your PMD for further evaluation If you drink milk please stop it for a week and have your blood calcium level tested again. No Smoking: If you smoke, Please STOP! Call for help. Follow-up with: Judith Hagan PA-C [Primary Care Provider] - 1 Week
[2017-01-31 12:15] VITALS: BP 99/65
[2017-02-01] MEDS ORDERED: fentaNYL 50 MCG PATCH TOP SCH (17:00)
== END 2017-01-31 12:43 | disposition home or self-care (01) ==
LOC: EDUNIT# → ED 12:09 → MS 15:25
PROVIDERS: ADMIT Internal Medicine; ATTEND Internal Medicine
DX: R41.82 Altered mental status, unspecified (principal); I10 Essential (primary) hypertension; G40.909 Epilepsy, unspecified, not intractable, without status epilepticus; G89.4 Chronic pain syndrome; E83.52 Hypercalcemia; E78.5 Hyperlipidemia, unspecified; E03.9 Hypothyroidism, unspecified; J45.909 Unspecified asthma, uncomplicated; M54.9 Dorsalgia, unspecified; F32.9 Major depressive disorder, single episode, unspecified; L40.9 Psoriasis, unspecified; G43.909 Migraine, unspecified, not intractable, without status migrainosus; Z85.43 Personal history of malignant neoplasm of ovary; Z90.49 Acquired absence of other specified parts of digestive tract; Z79.891 Long term (current) use of opiate analgesic; Z86.73 Personal history of transient ischemic attack (TIA), and cerebral infarction without residual deficits; Z87.891 Personal history of nicotine dependence; Z96.642 Presence of left artificial hip joint; Z87.81 Personal history of (healed) traumatic fracture; Z79.899 Other long term (current) drug therapy; Z87.440 Personal history of urinary (tract) infections; Z87.01 Personal history of pneumonia (recurrent); Z87.442 Personal history of urinary calculi
CPT/HCPCS: 36415; 70450; 70551; 71020; 74176; 80053; 80185; 80306; 81001; 83605; 83690; 85025; 87040; 96360; 96361; 99284; 99285; A9270; G0378; G0480; 80320; 81003; 87086

== ENCOUNTER 2017-11-04 08:48 | Inpatient (IN) | payer MEDICARE, MEDICAID ==
[2017-11-04] MEDS ORDERED: SODIUM CHLORIDE 0.9% 1,000 ML IV ONE (09:52)
[2017-11-04] MEDS ORDERED: PROCHLORPERAZINE 10 MG/2 ML VIAL IVP STA (09:52)
--- NOTE | 2017-11-04 09:58 | ED Physician Documentation ---
PD HPI NVD - Stated complaint Stated Complaint: NAUSEA,VOMITTING - Chief complaint Chief Complaint: Abd Pain - History obtained from History obtained from: Patient, Family - History of Present Illness Timing - onset: How many days ago (3) Timing - duration: Days (3) Timing - details: Gradual onset, Still present Associated symptoms: Abdominal pain, Near syncope / syncope Contributing factors: Recent antibiotics Improved by: Laying still Worsened by: Eating Similar symptoms before: Diagnosis (intractable vomiting) Recently seen: Clinic - Additonal information Additional information: 52-year-old female with a complicated medical history including surviving ovarian cancer, a seizure disorder and chronic osteomyelitis has developed nausea vomiting the past 3 days she has not been able to keep medications down despite her use of anti-emetics. She has tried increased doses of anti-emetic and this has not been helpful. She has had intractable vomiting previously and has had problems with her potassium as well. She has had a recent UTI and was on a course of antibiotic last week. Review of Systems Constitutional: reports: Fever, Myalgias, Fatigue, Sweats Eyes: denies: Decreased vision Ears: denies: Ear pain Nose: denies: Rhinorrhea / runny nose, Congestion Throat: denies: Sore throat Cardiac: denies: Chest pain / pressure, Palpitations Respiratory: reports: Cough. denies: Dyspnea GI: reports: Abdominal Pain, Nausea, Vomiting : denies: Dysuria, Frequency Skin: denies: Rash Musculoskeletal: reports: Back pain, Extremity pain. denies: Neck pain Neurologic: reports: Generalized weakness. denies: Focal weakness, Numbness PD PAST MEDICAL HISTORY - Past Medical History Past Medical History: Yes Cardiovascular: High cholesterol Respiratory: Asthma, Pneumonia Neuro: CVA, Headache/migraine, Head injury, Seizure disorder, Other Endocrine/Autoimmune: HyPOthyroidism, Other GI: C.difficile CLINICAL DATA ABSTRACTOR: None : Renal insuffiency, Kidney stones HEENT: None Psych: Depression Musculoskeletal: Osteoarthritis, Chronic back pain, Other Derm: Other drug resistant infections - Past Surgical History Past Surgical History: Yes General: Appendectomy Ortho: Hip replacement, Spine surgery /CLINICAL DATA ABSTRACTOR: 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, Oophrectomy - Present Medications Home Medications: Ambulatory Orders Medication Instructions Recorded Confirmed Butalb/Acetam/Caff 50/325/40 1 tab PO BID PRN 04/04/13 01/30/17 [Fioricet] Oxycodone HCl/Acetaminophen 1 tab PO TID PRN 10/14/16 01/30/17 [Percocet 5-325 mg Tablet] traZODone [Desyrel] 50 - 150 mg PO QPM PRN 10/14/16 01/30/17 Carvedilol [Coreg] 6.25 mg PO BID tablet 10/15/16 01/30/17 Phenytoin [Dilantin] 400 mg PO QPM capsule 10/15/16 01/30/17 fentaNYL 50 MCG PATCH [Duragesic 1 patch TOP Q72H patch 10/15/16 01/30/17 50mcg patch] levETIRAcetam [Keppra] 1,500 mg PO BID tablet 10/15/16 01/30/17 Chlorthalidone 50 mg ORAL DAILY 01/23/17 01/30/17 FLUoxetine [PROzac] 20 mg PO DAILY 01/23/17 01/30/17 Gemfibrozil 600 mg PO BIDAC 01/23/17 01/30/17 Methocarbamol 750 mg PO TID PRN 01/23/17 01/30/17 Omeprazole 20 mg ORAL BIDAC 01/23/17 01/30/17 amLODIPine [Norvasc] 10 mg PO DAILY 01/23/17 01/30/17 Bromelains 1,000 mg PO DAILY 01/30/17 01/30/17 Compounded Pain Cream 1 applic TOP QID PRN 01/30/17 01/30/17 Loperamide HCl [Anti-Diarrheal] 2 mg PO BID PRN 01/30/17 01/30/17 Pregabalin [Lyrica] 100 mg PO TID 01/30/17 01/30/17 Prochlorperazine [Compazine] 8 mg PO TID 01/30/17 diphenhydrAMINE [Benadryl] 25 mg PO Q4-6H PRN 01/30/17 01/30/17 - Allergies Allergies/Adverse Reactions: Allergies Allergy/AdvReac Type Severity Reaction Status Date / Time Penicillins Allergy Severe Respiratory Verified 01/22/17 22:36 bacitracin Allergy Mild Hives Verified 01/22/17 22:36 [From Neosporin ([id number])] bacitracin zinc * Allergy Mild Itching Verified 01/22/17 22:36 [From Neosporin ([id number])] neomycin sulfate * Allergy Mild Itching Verified 01/22/17 22:36 [From Neosporin ([id number])] venom-honey bee Allergy Unknown Verified 01/22/17 22:36 [bee venom (honey bee)] ciprofloxacin AdvReac Emesis Verified 01/22/17 22:36 - Social History Does the pt smoke?: No Smoking Status: Never smoker Does the pt drink ETOH?: No Does the pt have substance abuse?: No - Immunizations Immunizations are current?: Yes - POLST Patient has POLST: No POLST Status: Full Code PD ED PE NORMAL - Vitals Vital signs reviewed: Yes - General General: Alert and oriented X 3, No acute distress, Well developed/nourished - HEENT HEENT: Atraumatic, PERRL, EOMI, Other (dry mucous membranes) - Neck Neck: Supple, no meningeal sign, No bony TTP - Cardiac Cardiac: Other (tachy with 2/6 holosystolic murmer at LSB) - Respiratory Respiratory: No respiratory distress, Clear bilaterally - Abdomen Abdomen: Soft, Other (mild epigastric tenderness to palp) - Back Back: No CVA TTP, No spinal TTP - Derm Derm: Normal color, Warm and dry, No rash - Extremities Extremities: No deformity, No edema - Neuro Neuro: No motor deficit, No sensory deficit Eye Opening: Spontaneous Motor: Obeys Commands Verbal: Oriented GCS Score: 15 - Psych Psych: Normal mood, Normal affect Results - Vitals Vitals: Vital Signs - 24 hr 11/04/17 11/04/17 11/04/17 09:09 10:00 11:30 Temperature 36.4 C L Heart Rate 127 H 103 H 105 H Respiratory 18 16 16 Rate Blood Pressure 121/104 H 116/82 H 132/94 H O2 Saturation 96 97 97 Oxygen O2 Source Room air - Labs Labs: Laboratory Tests 11/04/17 11/04/17 11/04/17 10:10 10:10 10:10 WBC 8.4 RBC 6.05 H Hgb 17.3 H Hct 49.6 H MCV 82.0 MCH 28.6 MCHC 34.9 RDW 14.1 Plt Count 670 H MPV 8.6 Neut # 6.3 Lymph # 1.5 [place] # 0.5 Eos # 0.0 Baso # 0.1 Absolute Nucleated RBC 0.01 Nucleated RBC % 0.1 Sodium 134 L Potassium 2.0 L* Chloride 94 L Carbon Dioxide 17 L Anion Gap 23.0 H BUN 13 Creatinine 1.2 H Estimated GFR (MDRD) 47 L Glucose 178 H Calcium 10.3 Total Bilirubin 1.0 AST 32 ALT 12 Alkaline Phosphatase 142 H Troponin I 0.16 Total Protein 8.9 H Albumin 4.9 Globulin 4.0 Albumin/Globulin Ratio 1.2 Lipase 12 L Procedures - IVC sono (time) 0950 Bedside IVC sono: IVC measures (cm) (0.92), IVC collapsed c insp (cm) (complete) , Dehydration (est 2liter deficit) PD MEDICAL DECISION MAKING - ED course Complexity details: reviewed old records, reviewed results, re-evaluated patient , considered differential, d/w patient, d/w family ED course: 52-year-old female with a complicated past medical history has developed some intractable nausea and vomiting. There is no diarrhea. She is volume depleted and has a low K+ at 2.0. She has some improvement in the nausea with compazine and is able to hold down 25mEq of K+. She has a small bore IV with a slow rate at 100ml/hr. She will need to come into the hospital for hydration and K+ replacement. She denies cannabis use or frequent bathing. Departure - Departure Disposition: ED Place in Observation Clinical Impression: Dehydration, Hypokalemia
[2017-11-04 10:30] LABS: BASOPHILS # (AUTO) 0.1 10^3/uL (0.0-0.1); BASOPHILS % (AUTO) 1.2 %; HGB - HEMOGLOBIN 17.3 g/dL (12.0-16.0); LYMPHOCYTES # (AUTO) 1.5 10^3/uL (1.5-3.5); LYMPHOCYTES % (AUTO) 17.8 %; MEAN CORPUSCULAR HEMOGLOBIN 28.6 pg (27.0-31.0); MEAN CORPUSCULAR HGB CONC 34.9 g/dL (32.0-36.0); MEAN PLATELET VOLUME 8.6 fL (7.9-10.8); MONOCYTES # (AUTO) 0.5 10^3/uL (0.0-1.0); MONOCYTES % (AUTO) 6.1 %; NEUTROPHILS # (AUTO) 6.3 10^3/uL (1.5-6.6); NEUTROPHILS % (AUTO) 74.9 %; PLT - PLATELET COUNT 670 10^3/uL (130-450); RED BLOOD COUNT 6.05 10^6/uL (4.20-5.40); RED CELL DISTRIBUTION WIDTH 14.1 % (12.0-15.0); WHITE BLOOD COUNT 8.4 x10^3/uL (4.8-10.8)
[2017-11-04 10:58] LABS: ALBUMIN 4.9 g/dL (3.2-5.5); ALBUMIN/GLOBULIN RATIO 1.2 (1.0-2.2); CALCIUM 10.3 mg/dL (8.5-10.3); CREATININE 1.2 mg/dL (0.4-1.0); TOTAL PROTEIN 8.9 g/dL (6.7-8.2)
[2017-11-04] MEDS ORDERED: POTASSIUM BICARB 25 MEQ TABLET PO STA (11:21)
[2017-11-04] MEDS ORDERED: SODIUM CHLORIDE FLUSH 0.9% 10 ML SYRINGE IVP PRN (13:24)
[2017-11-04] MEDS ORDERED: POTASSIUM CHLORIDE INJ 40 MEQ in SODIUM CHLORIDE 0.9% 480 ML IV ONE (16:00)
[2017-11-04] MEDS: METHOCARBAMOL 500 MG TABLET PO SCH ×2 (16:18→21:58)
[2017-11-04] MEDS: SODIUM CHLORIDE FLUSH 0.9% 10 ML SYRINGE IVP SCH (16:19)
[2017-11-04] MEDS: PREGABALIN 100 MG CAPSULE PO SCH ×2 (16:27→17:11)
[2017-11-04] MEDS: HYDROmorphone 1 MG/ML SYRINGE IVP PRN (16:27)
[2017-11-04] MEDS: ONDANSETRON 4 MG/2 ML VIAL IVP PRN (16:28)
[2017-11-04] MEDS ORDERED: SODIUM CHLORIDE FLUSH 0.9% 10 ML SYRINGE ONE (16:55)
[2017-11-04] MEDS ORDERED: oxyCOD/ACETAMIN 5 MG/325 MG TABLET PO SCH (17:00)
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
[2017-11-04] MEDS ORDERED: PROCHLORPERAZINE 25 MG SUPP PR PRN (17:46)
[2017-11-04] MEDS: PROCHLORPERAZINE 10 MG/2 ML VIAL IVP PRN (18:25)
[2017-11-04] MEDS ORDERED: A & D OINTMENT 5 GM PACKET TOP PRN (19:11)
[2017-11-04 19:22] LABS: GLUCOSE, URINE (UA) NEGATIVE (NEGATIVE); KETONES,URINE (UA) 40 mg/dL (NEGATIVE); LEUKOCYTE ESTERASE, URINE NEGATIVE (NEGATIVE); NITRITE,URINE NEGATIVE (NEGATIVE); OCCULT BLOOD,URINE LARGE (NEGATIVE); PH,URINE 6.5 PH (5.0-7.5); PROTEIN,URINE >=300 mg/dL (NEGATIVE); UROBILINOGEN,URINE 0.2 (NORMAL) E.U./dL (NORMAL)
[2017-11-04 19:29] LABS: BILIRUBIN,URINE NEGATIVE (NEGATIVE); CLARITY,URINE HAZY (CLEAR); ICTOTEST,URINE NEGATIVE
[2017-11-04 19:32] LABS: BACTERIA,URINE Few /HPF (None Seen); CASTS, URINE 3-5 Fine Granular /LPF; SQUAMOUS EPITHELIAL CELL,UR MOD Squamous (<= Few)
[2017-11-04] MEDS: PHENYTOIN ER 100 MG CAPSULE PO SCH (20:01)
[2017-11-04] MEDS: CARVEDILOL 3.125 MG TABLET PO SCH (20:01)
[2017-11-04] MEDS: traZODone 50 MG TABLET PO SCH (20:02)
[2017-11-04] MEDS: levETIRAcetam INJ 500 MG in SODIUM CHLORIDE 0.9% 100ML 100 ML IV SCH (20:03)
[2017-11-04] MEDS: levETIRAcetam INJ 1,000 MG in SODIUM CHLORIDE 0.9% 100ML 100 ML IV SCH ×2 (20:03→21:02)
[2017-11-04] MEDS: fentaNYL 50 MCG PATCH TOP SCH (21:00)
[2017-11-04] MEDS ORDERED: levETIRAcetam 250 MG TABLET PO SCH (21:00)
[2017-11-04] MEDS: METHADONE 5 MG TABLET PO SCH (21:59)
[2017-11-04] MEDS: NS W/20 MEQ KCL 1,000 ML IV SCH (22:12)
[2017-11-05] MEDS: PROCHLORPERAZINE 10 MG/2 ML VIAL IVP PRN ×3 (00:02→17:18)
[2017-11-05] MEDS: NS W/20 MEQ KCL 1,000 ML IV SCH ×3 (00:05→19:11)
[2017-11-05] MEDS: SODIUM CHLORIDE FLUSH 0.9% 10 ML SYRINGE IVP SCH ×3 (01:22→19:12)
[2017-11-05] MEDS: METHADONE 5 MG TABLET PO SCH ×3 (05:09→21:49)
[2017-11-05 05:25] LABS: BASOPHILS % (AUTO) 1.3 %; HGB - HEMOGLOBIN 13.3 g/dL (12.0-16.0); LYMPHOCYTES % (AUTO) 39.9 %; MEAN CORPUSCULAR HEMOGLOBIN 27.5 pg (27.0-31.0); MEAN CORPUSCULAR HGB CONC 32.8 g/dL (32.0-36.0); MEAN CORPUSCULAR VOLUME 83.9 fL (81.0-99.0); MEAN PLATELET VOLUME 8.4 fL (7.9-10.8); MONOCYTES % (AUTO) 13.5 %; NEUTROPHILS % (AUTO) 44.3 %; PLT - PLATELET COUNT 416 10^3/uL (130-450); RED BLOOD COUNT 4.85 10^6/uL (4.20-5.40); RED CELL DISTRIBUTION WIDTH 14.4 % (12.0-15.0); WHITE BLOOD COUNT 7.4 x10^3/uL (4.8-10.8)
[2017-11-05 05:31] LABS: ABNORMAL LYMPHS % (MANUAL) 0 %; BAND NEUTROPHILS % (MANUAL) 0 %
[2017-11-05 05:32] LABS: ALBUMIN 3.8 g/dL (3.2-5.5); ALBUMIN/GLOBULIN RATIO 1.4 (1.0-2.2); BILIRUBIN,TOTAL 0.8 mg/dL (0.2-1.0); CALCIUM 8.8 mg/dL (8.5-10.3); CREATININE 0.8 mg/dL (0.4-1.0); MAGNESIUM 1.7 mg/dL (1.7-2.8); PHOSPHORUS 2.7 mg/dL (2.5-4.6); TOTAL PROTEIN 6.5 g/dL (6.7-8.2)
[2017-11-05 05:51] LABS: BASOPHILS # (MANUAL) 0.1 10^3/uL (0-0.1); BASOPHILS % (MANUAL) 1 %; DIFFERENTIAL COMMENT MANUAL DIFFERENTIAL; LYMPHOCYTES # (MANUAL) 2.1 10^3/uL (1.5-3.5); LYMPHOCYTES % (MANUAL) 28 %; MONOCYTES # (MANUAL) 0.8 10^3/uL (0.0-1.0); NEUTROPHILS # (MANUAL) 4.4 10^3/uL (1.5-6.6); NEUTROPHILS % (MANUAL) 60 %; PLATELET ESTIMATE, MANUAL NORMAL (130-450,000) (NORMAL); RBC MORPHOLOGY (MULTIPLE) NORMAL APPEARANCE (NORMAL)
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
[2017-11-05] MEDS: ONDANSETRON 4 MG/2 ML VIAL IVP PRN (09:21)
[2017-11-05] MEDS: PREGABALIN 100 MG CAPSULE PO SCH (09:23)
[2017-11-05] MEDS: LORATADINE 10 MG TABLET PO SCH (09:23)
[2017-11-05] MEDS: CARVEDILOL 3.125 MG TABLET PO SCH ×2 (09:24→21:48)
[2017-11-05] MEDS: amLODIPine 5 MG TABLET PO SCH (09:24)
[2017-11-05] MEDS: levETIRAcetam INJ 500 MG in SODIUM CHLORIDE 0.9% 100ML 100 ML IV SCH ×2 (09:25→22:41)
[2017-11-05] MEDS: HYDROmorphone 1 MG/ML SYRINGE IVP PRN ×2 (09:27→18:02)
[2017-11-05] MEDS: POLYETHYLENE GLYCOL 3350 17 GM PACKET PO SCH (09:27)
[2017-11-05] MEDS: METHOCARBAMOL 500 MG TABLET PO SCH ×4 (09:27→21:48)
[2017-11-05] MEDS: fentaNYL 50 MCG PATCH TOP SCH (09:29)
[2017-11-05] MEDS: levETIRAcetam INJ 1,000 MG in SODIUM CHLORIDE 0.9% 100ML 100 ML IV SCH ×2 (09:44→22:20)
[2017-11-05] MEDS: POTASSIUM CHLORIDE 20 MEQ TABLET PO SCH ×2 (11:06→22:20)
[2017-11-05] MEDS ORDERED: POTASSIUM CHLORIDE INJ 40 MEQ in SODIUM CHLORIDE 0.9% 480 ML IV ONE (11:30)
[2017-11-05] MEDS: oxyCOD/ACETAMIN 5 MG/325 MG TABLET PO PRN (12:55)
[2017-11-05] MEDS: FLUoxetine 10 MG CAPSULE PO SCH (13:28)
[2017-11-05] MEDS ORDERED: DIPHENOX/ATROPINE 2.5/0.025 MG TABLET PO PRN (14:31)
[2017-11-05] MEDS: CHOLECALCIFEROL 1,000 UNIT TABLET PO SCH ×2 (15:05→21:48)
[2017-11-05] MEDS: traZODone 50 MG TABLET PO SCH (21:51)
[2017-11-05] MEDS: PHENYTOIN ER 100 MG CAPSULE PO SCH (21:52)
[2017-11-06] MEDS: PROCHLORPERAZINE 10 MG/2 ML VIAL IVP PRN ×3 (00:34→14:03)
[2017-11-06] MEDS: SODIUM CHLORIDE FLUSH 0.9% 10 ML SYRINGE IVP SCH ×2 (03:04→08:46)
[2017-11-06] MEDS: oxyCOD/ACETAMIN 5 MG/325 MG TABLET PO PRN (03:08)
[2017-11-06 06:12] LABS: ALBUMIN 3.1 g/dL (3.2-5.5); ALBUMIN/GLOBULIN RATIO 1.5 (1.0-2.2); ALKALINE PHOSPHATASE 86 IU/L (42-121); ALT ALANINE AMINOTRANSFERASE < 10 IU/L (10-60); AST ASPARTATE AMINOTRANSFERASE 22 IU/L (10-42); BILIRUBIN,TOTAL < 0.2 mg/dL (0.2-1.0); BUN - BLOOD UREA NITROGEN 7 mg/dL (6-20); CALCIUM 8.1 mg/dL (8.5-10.3); CARBON DIOXIDE - CO2 25 mmol/L (21-32); CHLORIDE 106 mmol/L (101-111); CREATININE 0.5 mg/dL (0.4-1.0); GFR - MDRD 130 (>89); GLUCOSE 114 mg/dL (70-100); MAGNESIUM 1.3 mg/dL (1.7-2.8); PHENYTOIN (DILANTIN) 3.5 ug/mL; SODIUM 137 mmol/L (135-145); TOTAL PROTEIN 5.2 g/dL (6.7-8.2)
[2017-11-06 06:15] LABS: BASOPHILS % (AUTO) 0.8 %; EOSINOPHILS # (AUTO) 0.1 10^3/uL (0.0-0.7); EOSINOPHILS % (AUTO) 2.3 %; HGB - HEMOGLOBIN 10.8 g/dL (12.0-16.0); MEAN CORPUSCULAR HEMOGLOBIN 28.3 pg (27.0-31.0); MEAN CORPUSCULAR HGB CONC 33.4 g/dL (32.0-36.0); MEAN CORPUSCULAR VOLUME 84.5 fL (81.0-99.0); MEAN PLATELET VOLUME 8.3 fL (7.9-10.8); MONOCYTES # (AUTO) 0.6 10^3/uL (0.0-1.0); NEUTROPHILS # (AUTO) 1.5 10^3/uL (1.5-6.6); NEUTROPHILS % (AUTO) 28.9 %; PLT - PLATELET COUNT 244 10^3/uL (130-450); RED BLOOD COUNT 3.81 10^6/uL (4.20-5.40); RED CELL DISTRIBUTION WIDTH 14.9 % (12.0-15.0); WHITE BLOOD COUNT 5.2 x10^3/uL (4.8-10.8)
[2017-11-06] MEDS: NS W/20 MEQ KCL 1,000 ML IV SCH (06:27)
[2017-11-06] MEDS: CHOLECALCIFEROL 1,000 UNIT TABLET PO SCH ×3 (06:27→21:10)
[2017-11-06] MEDS: METHADONE 5 MG TABLET PO SCH ×3 (06:27→22:08)
[2017-11-06] MEDS: HYDROmorphone 1 MG/ML SYRINGE IVP PRN ×2 (08:36→14:03)
[2017-11-06] MEDS: METHOCARBAMOL 500 MG TABLET PO SCH ×2 (08:41→21:16)
[2017-11-06] MEDS: LORATADINE 10 MG TABLET PO SCH (08:42)
[2017-11-06] MEDS: POTASSIUM CHLORIDE 20 MEQ TABLET PO SCH ×4 (08:43→22:09)
[2017-11-06] MEDS: CARVEDILOL 3.125 MG TABLET PO SCH ×2 (08:43→21:09)
[2017-11-06] MEDS: FLUoxetine 10 MG CAPSULE PO SCH (08:44)
[2017-11-06] MEDS: amLODIPine 5 MG TABLET PO SCH (08:44)
[2017-11-06] MEDS: PREGABALIN 100 MG CAPSULE PO SCH (08:46)
[2017-11-06] MEDS: POLYETHYLENE GLYCOL 3350 17 GM PACKET PO SCH (08:46)
[2017-11-06] MEDS ORDERED: fentaNYL 25 MCG PATCH TOP SCH (11:00)
[2017-11-06] MEDS: levETIRAcetam 250 MG TABLET PO SCH ×2 (11:01→21:10)
[2017-11-06] MEDS: MAGNESIUM OXIDE 400 MG TABLET PO SCH ×3 (14:03→22:09)
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
[2017-11-06] MEDS: PHENYTOIN ER 100 MG CAPSULE PO SCH (21:05)
[2017-11-06] MEDS: traZODone 50 MG TABLET PO SCH (21:09)
[2017-11-07] MEDS: oxyCOD/ACETAMIN 5 MG/325 MG TABLET PO PRN ×2 (00:06→04:15)
[2017-11-07] MEDS: METHADONE 5 MG TABLET PO SCH (06:06)
[2017-11-07] MEDS: POTASSIUM CHLORIDE 20 MEQ TABLET PO SCH (06:06)
[2017-11-07] MEDS: MAGNESIUM OXIDE 400 MG TABLET PO SCH (06:07)
[2017-11-07] MEDS: CHOLECALCIFEROL 1,000 UNIT TABLET PO SCH (06:07)
[2017-11-07 06:28] LABS: BASOPHILS # (AUTO) 0.1 10^3/uL (0.0-0.1); EOSINOPHILS # (AUTO) 0.2 10^3/uL (0.0-0.7); EOSINOPHILS % (AUTO) 2.9 %; HGB - HEMOGLOBIN 12.2 g/dL (12.0-16.0); LYMPHOCYTES # (AUTO) 2.7 10^3/uL (1.5-3.5); LYMPHOCYTES % (AUTO) 35.6 %; MEAN CORPUSCULAR HEMOGLOBIN 28.4 pg (27.0-31.0); MEAN CORPUSCULAR HGB CONC 33.3 g/dL (32.0-36.0); MEAN CORPUSCULAR VOLUME 85.4 fL (81.0-99.0); MONOCYTES # (AUTO) 0.9 10^3/uL (0.0-1.0); MONOCYTES % (AUTO) 11.7 %; NEUTROPHILS # (AUTO) 3.6 10^3/uL (1.5-6.6); NEUTROPHILS % (AUTO) 48.8 %; PLT - PLATELET COUNT 237 10^3/uL (130-450); RED CELL DISTRIBUTION WIDTH 14.6 % (12.0-15.0); WHITE BLOOD COUNT 7.4 x10^3/uL (4.8-10.8)
[2017-11-07 06:41] LABS: ALBUMIN 3.7 g/dL (3.2-5.5); ALBUMIN/GLOBULIN RATIO 1.4 (1.0-2.2); BILIRUBIN,TOTAL 0.3 mg/dL (0.2-1.0); CALCIUM 9.3 mg/dL (8.5-10.3); CREATININE 0.3 mg/dL (0.4-1.0); MAGNESIUM 1.5 mg/dL (1.7-2.8); TOTAL PROTEIN 6.3 g/dL (6.7-8.2)
[2017-11-07 07:56] VITALS: BP 137/85
[2017-11-07] MEDS: METHOCARBAMOL 500 MG TABLET PO SCH (08:17)
[2017-11-07] MEDS: levETIRAcetam 250 MG TABLET PO SCH (08:17)
[2017-11-07] MEDS: LORATADINE 10 MG TABLET PO SCH (08:18)
[2017-11-07] MEDS: CARVEDILOL 3.125 MG TABLET PO SCH (08:18)
[2017-11-07] MEDS: POLYETHYLENE GLYCOL 3350 17 GM PACKET PO SCH (08:19)
[2017-11-07] MEDS: FLUoxetine 10 MG CAPSULE PO SCH (08:19)
[2017-11-07] MEDS: amLODIPine 5 MG TABLET PO SCH (08:19)
--- NOTE | 2017-11-07 08:47 | Discharge Plan ---
Discharge Plan Disposition: Home, Self Care Condition: Good Prescriptions: Methadone 5 mg PO TID #90 tablet Potassium Chloride [K-Dur] 20 meq PO TID #30 tablet Prochlorperazine Supp [Compazine Supp] 25 mg ME TID PRN #20 supp PRN Reason: Nausea / Vomiting Diet: Regular Activity Restrictions: No Restrictions Shower Restrictions: No Driving Restrictions: Yes Weight Bearing: Full Weight Additional Instructions or Follow Up instructions: You were admitted for nausea and vomiting. We found that your electrolytes were very low, especially your potassium. The nausea and vomiting slowly improved and you were able to tolerate meals. We also noticed that your home medication list shows that you have a few different types of pain that would be well managed with Methadone. I will plan to call your PCP on Thursday, since she did not get back to me yesterday. Please be careful with your medications since the idea is to wean completely off your muscle relaxers and narcotics. Please plan to see your PCP within one week. No Smoking: If you smoke, Please STOP! Call for help. Follow-up with: Judith Hagan PA-C [Primary Care Provider] -
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
== END 2017-11-07 10:10 | disposition home or self-care (01) | DRG 392 ==
LOC: ED 08:48 → MS2 13:24
PROVIDERS: ADMIT Nurse Practitioner; ATTEND Nurse Practitioner
DX: A08.4 Viral intestinal infection, unspecified (principal); M86.60 Other chronic osteomyelitis, unspecified site; R11.2 Nausea with vomiting, unspecified; F11.288 Opioid dependence with other opioid-induced disorder; F11.282 Opioid dependence with opioid-induced sleep disorder; G89.29 Other chronic pain; E87.6 Hypokalemia; Z87.01 Personal history of pneumonia (recurrent); Z86.73 Personal history of transient ischemic attack (TIA), and cerebral infarction without residual deficits; E86.0 Dehydration; G89.4 Chronic pain syndrome; Z79.891 Long term (current) use of opiate analgesic; G40.909 Epilepsy, unspecified, not intractable, without status epilepticus; I12.9 Hypertensive chronic kidney disease with stage 1 through stage 4 chronic kidney disease, or unspecified chronic kidney disease; N18.9 Chronic kidney disease, unspecified; E03.9 Hypothyroidism, unspecified; F32.9 Major depressive disorder, single episode, unspecified; M79.7 Fibromyalgia; E78.5 Hyperlipidemia, unspecified; E66.9 Obesity, unspecified; M32.9 Systemic lupus erythematosus, unspecified; I69.311 Memory deficit following cerebral infarction; Z66 Do not resuscitate; Z87.440 Personal history of urinary (tract) infections; Z68.30 Body mass index [BMI] 30.0-30.9, adult; Z85.43 Personal history of malignant neoplasm of ovary; Z87.11 Personal history of peptic ulcer disease; Z98.1 Arthrodesis status
CPT/HCPCS: 36415; 80053; 80185; 81001; 81003; 82652; 83690; 83735; 84100; 84484; 85025; 87040; 87086; 87640; 96361; 96374; 99283; 99284

== ENCOUNTER 2017-12-24 07:44 | Outpatient (CLI) | payer MEDICARE, MEDICAID | END 2017-12-24 07:45 | disposition critical access hospital (66) | LOC: EMS 07:44 | PROVIDERS: ATTEND Surgery | DX: S09.90XA Unspecified injury of head, initial encounter (principal); X58.XXXA Exposure to other specified factors, initial encounter; Y92.009 Unspecified place in unspecified non-institutional (private) residence as the place of occurrence of the external cause | CPT/HCPCS: A0425; A0427 ==

== ENCOUNTER 2017-12-24 08:03 | Emergency (ER) | payer MEDICARE, MEDICAID ==
--- NOTE | 2017-12-24 08:37 | ED Physician Documentation ---
PD HPI SEIZURE - Stated complaint Stated Complaint: POSS SZ - Chief complaint Chief Complaint: Neuro - History obtained from History obtained from: Patient, EMS - History of Present Illness Timing - onset: Today (Found on floor by daughter.) Witnessed: Unwitnessed Injury during seizure: Fell, Head injury Associated symptoms: Headache, Nausea / vomiting, Other (left hip pain) History of seizures: Known seizure disorder Recently seen: Admitted (Nearly two months ago with intractable vomiting with hypokalemia.) - Additional information Additional information: The patient is a 52-year-old female with complicated medical history, including chronic pain syndrome, lupus, ovarian cancer survivor, seizure disorder, and left hip resection for recurrent osteomyelitis. She presents via ambulance this morning after her daughter found her lying on the floor beside her bed. The patient states she had a seizure. This was unwitnessed, and it is uncertain when it occurred. The patient reports headache, and has had recent nausea and vomiting that preceded the episode this morning. She also reports pain in her left hip. Review of her medical records reveals a similar presentation nearly 2 months ago when she was hospitalized with persistent nausea and vomiting with hypokalemia. She is treated with Keppra for her seizure disorder, and denies any recent change in her antiseizure medication. Review of Systems Constitutional: denies: Fever Eyes: denies: Decreased vision Nose: denies: Congestion Throat: denies: Sore throat Cardiac: denies: Chest pain / pressure Respiratory: denies: Dyspnea, Cough GI: reports: Nausea, Vomiting. denies: Abdominal Pain, Diarrhea : denies: Dysuria Skin: denies: Rash Musculoskeletal: reports: Extremity pain (left hip). denies: Neck pain Neurologic: reports: Altered mental status, Headache, Head injury. denies: Focal weakness, Numbness PD PAST MEDICAL HISTORY - Past Medical History Cardiovascular: Hypertension, High cholesterol Respiratory: Asthma, Pneumonia Neuro: CVA, Headache/migraine, Head injury, Seizure disorder, Other Endocrine/Autoimmune: HyPOthyroidism, Systemic lupus erythematosus GI: GERD, Ulcers, C.difficile CERTIFIED GENETIC COUNSELOR: Ovarian cancer : Renal insuffiency, Nocturia, Frequency, Kidney stones HEENT: None Psych: Depression, Other (opioid dependence) Musculoskeletal: Osteoarthritis, Fatigue, Chronic back pain Derm: Other drug resistant infections, Psoriasis - Past Surgical History Past Surgical History: Yes General: Cholecystectomy, Appendectomy Ortho: Hip replacement, Spine surgery /CERTIFIED GENETIC COUNSELOR: 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, Oophrectomy - Present Medications Home Medications: Ambulatory Orders Medication Instructions Recorded Confirmed traZODone [Desyrel] 150 mg PO QPM 10/14/16 11/04/17 Carvedilol [Coreg] 6.25 mg PO BID tablet 10/15/16 11/04/17 Phenytoin [Dilantin] 400 mg PO QPM capsule 10/15/16 11/04/17 levETIRAcetam [Keppra] 1,500 mg PO BID tablet 10/15/16 11/04/17 Chlorthalidone 50 mg ORAL BID 01/23/17 11/04/17 FLUoxetine [PROzac] 20 mg PO DAILY 01/23/17 11/04/17 amLODIPine [Norvasc] 10 mg PO DAILY 01/23/17 11/04/17 Loperamide HCl [Anti-Diarrheal] 2 - 4 mg PO PRN PRN 01/30/17 11/04/17 Loratadine 20 mg PO DAILY 11/04/17 11/04/17 Diphenoxylate/Atropine [Lomotil] 1 tab PO QID PRN tablet 11/07/17 Methadone 5 mg PO TID #90 tablet 11/07/17 Potassium Chloride [K-Dur] 20 meq PO TID #30 tablet 11/07/17 Prochlorperazine Supp [Compazine 25 mg FL TID PRN #20 supp 11/07/17 Supp] - Allergies Allergies/Adverse Reactions: Allergies Allergy/AdvReac Type Severity Reaction Status Date / Time Penicillins Allergy Severe Respiratory Verified 01/22/17 22:36 bacitracin Allergy Mild Hives Verified 01/22/17 22:36 [From Neosporin ([id number])] bacitracin zinc * Allergy Mild Itching Verified 01/22/17 22:36 [From Neosporin ([id number])] neomycin sulfate * Allergy Mild Itching Verified 01/22/17 22:36 [From Neosporin ([id number])] venom-honey bee Allergy Unknown Verified 01/22/17 22:36 [bee venom (honey bee)] ciprofloxacin AdvReac Emesis Verified 01/22/17 22:36 - Social History Does the pt smoke?: No Smoking Status: Former smoker Does the pt drink ETOH?: No Does the pt have substance abuse?: No - Immunizations Immunizations are current?: Yes - POLST Patient has POLST: Yes POLST Status: DNR PD ED PE NORMAL - Vitals Vital signs reviewed: Yes (Drowsy but responds coherently to questions.) - General General: Alert and oriented X 3, Well developed/nourished - HEENT HEENT: PERRL, EOMI, Moist mucous membranes, Pharynx benign, Other (There is abrasion and small hematoma on the right frontoparietal scalp.) - Neck Neck: Supple, no meningeal sign, No bony TTP, No adenopathy, No JVD - Cardiac Cardiac: RRR, No murmur - Respiratory Respiratory: No respiratory distress, Clear bilaterally - Abdomen Abdomen: Soft, Non tender - Back Back: No CVA TTP, No spinal TTP - Derm Derm: No rash - Extremities Extremities: No edema, No calf tenderness / cord, Other (Left leg is shortened compared to the right. There is discomfort with rotation of the left leg at the hip.) - Neuro Neuro: Alert and oriented X 3, No motor deficit, No sensory deficit, Other ( Drowsy, but coherent. No focal motor or sensory deficit detected.) Eye Opening: Spontaneous Motor: Obeys Commands Verbal: Oriented GCS Score: 15 Results - Vitals Vitals: Vital Signs - 24 hr 12/24/17 12/24/17 12/24/17 08:13 10:04 10:46 Temperature 36.0 C L Heart Rate 50 L 83 73 Respiratory 18 10 L 12 Rate Blood Pressure 159/84 H 148/105 H 123/82 H O2 Saturation 98 98 99 12/24/17 12:11 Temperature Heart Rate 78 Respiratory 16 Rate Blood Pressure 147/78 H O2 Saturation 99 Oxygen O2 Source Room air - Labs Labs: Laboratory Tests 12/24/17 12/24/17 12/24/17 09:01 09:01 11:25 WBC 16.7 H RBC 4.76 Hgb 13.3 Hct 40.7 MCV 85.5 MCH 28.0 MCHC 32.7 RDW 14.0 Plt Count 368 MPV 8.1 Neut # 13.7 H Lymph # 1.9 [place]racken # 0.9 Eos # 0.1 Baso # 0.1 Absolute Nucleated RBC 0.00 Nucleated RBC % 0.0 Sodium 134 L Potassium 3.1 L Chloride 102 Carbon Dioxide 20 L Anion Gap 12.0 BUN 8 Creatinine 0.5 Estimated GFR (MDRD) 130 Glucose 151 H Calcium 9.3 Total Bilirubin 1.1 H AST 29 ALT 21 Alkaline Phosphatase 124 H Total Protein 7.8 Albumin 4.4 Globulin 3.4 Albumin/Globulin Ratio 1.3 Lipase 13 L Urine Color YELLOW Urine Clarity CLEAR Urine pH 5.5 Ur Specific [place] 1.015 Urine Protein TRACE Urine Glucose (UA) NEGATIVE Urine Ketones NEGATIVE Urine Occult Blood SMALL H Urine Nitrite NEGATIVE Urine Bilirubin NEGATIVE Urine Urobilinogen 0.2 (NORMAL) Ur Leukocyte Esterase NEGATIVE Urine RBC None Seen Urine WBC 0-3 Ur Squamous Epith Cells NONE SEEN Urine Bacteria None Seen Ur Microscopic Review INDICATED Urine Culture Comments NOT INDICATED - Rads (name of study) Head CT Radiology: Prelim report reviewed, EMP read contemporaneously, See rad report ( Small right forehead scalp contusion without skull fracture. Brain is unremarkable. No intracranial hemorrhage.) left hip Radiology: Prelim report reviewed, EMP read contemporaneously, See rad report ( Left total hip arthroplasty, as before. No pelvic or proximal left femur fracture is identified.) PD MEDICAL DECISION MAKING - ED course Complexity details: reviewed old records, reviewed results, re-evaluated patient , considered differential, d/w patient, d/w family ED course: The patient's presentation is significant for seizure, with contusion to her forehead. CT scan of her head reveals no acute intracranial abnormality. At the time of presentation the patient was quite drowsy, and it was unclear whether this was due to postictal drowsiness or opioid induced drowsiness from fentanyl patch. Her fentanyl patch was removed, and during her course of observation the patient's drowsiness resolved. She continued to complain of headache, and a fentanyl patch was reapplied. Her laboratory analysis revealed hypokalemia, with a potassium of 3.1. Further treatment included administration of potassium, 20 mEq orally. At the time of discharge she is completely alert, with significant improvement in her headache, and without nausea. I discussed with her and her daughter the results of her workup, outpatient follow-up, as well as potentially worrisome signs or symptoms that should prompt reevaluation in the emergency department. Departure - Departure Disposition: 01 Home, Self Care Clinical Impression: Seizure Headache Qualifiers: Headache type: unspecified Headache chronicity pattern: acute headache Intractability: not intractable Qualified Code(s): R51 - Headache Forehead contusion Qualifiers: Encounter type: initial encounter Qualified Code(s): S00.83XA - Contusion of other part of head, initial encounter Condition: Stable Instructions: ED Head Injury Closed, ED Seizure Recurrent Follow-Up: Judith Hagan PA-C [Primary Care Provider] - Comments: Continue your seizure medication as previously prescribed. You can use fentanyl patch as previously prescribed for pain control. If increasing drowsiness ensues, consider decreasing the dose of fentanyl. Follow up with your primary physician within 1-2 weeks. Call to schedule appointment. Return to the emergency department if you develop increasing headache, persistent vomiting, increasing frequency of seizures, or otherwise worsening symptoms. Discharge Date/Time: 12/24/17 13:27
[2017-12-24 09:07] LABS: BASOPHILS # (AUTO) 0.1 10^3/uL (0.0-0.1); BASOPHILS % (AUTO) 0.4 %; EOSINOPHILS # (AUTO) 0.1 10^3/uL (0.0-0.7); EOSINOPHILS % (AUTO) 0.6 %; HGB - HEMOGLOBIN 13.3 g/dL (12.0-16.0); LYMPHOCYTES # (AUTO) 1.9 10^3/uL (1.5-3.5); LYMPHOCYTES % (AUTO) 11.4 %; MEAN CORPUSCULAR HGB CONC 32.7 g/dL (32.0-36.0); MEAN CORPUSCULAR VOLUME 85.5 fL (81.0-99.0); MEAN PLATELET VOLUME 8.1 fL (7.9-10.8); MONOCYTES # (AUTO) 0.9 10^3/uL (0.0-1.0); MONOCYTES % (AUTO) 5.4 %; NEUTROPHILS # (AUTO) 13.7 10^3/uL (1.5-6.6); NEUTROPHILS % (AUTO) 82.2 %; PLT - PLATELET COUNT 368 10^3/uL (130-450); RED BLOOD COUNT 4.76 10^6/uL (4.20-5.40); WHITE BLOOD COUNT 16.7 x10^3/uL (4.8-10.8)
[2017-12-24 09:21] LABS: ALBUMIN 4.4 g/dL (3.2-5.5); ALBUMIN/GLOBULIN RATIO 1.3 (1.0-2.2); BILIRUBIN,TOTAL 1.1 mg/dL (0.2-1.0); CALCIUM 9.3 mg/dL (8.5-10.3); CREATININE 0.5 mg/dL (0.4-1.0); TOTAL PROTEIN 7.8 g/dL (6.7-8.2)
--- NOTE | 2017-12-24 09:29 | CT Report ---
EXAM: CT HEAD EXAM DATE: 12/24/2017 09:18 AM. CLINICAL HISTORY: Seizure with scalp hematoma. COMPARISON: 02/09/2017. TECHNIQUE: Multiaxial CT images were obtained from the foramen magnum to the vertex. Reformats: Coron al. IV contrast: None. In accordance with CT protocol optimization, one or more of the following dose reduction techniques w ere utilized for this exam: automated exposure control, adjustment of mA and/or KV based on patient s ize, or use of iterative reconstructive technique. FINDINGS: Parenchyma: No intraparenchymal hemorrhage. No evidence of mass, midline shift, or CT findings of inf arction. Pablo-white differentiation is distinct. Extraaxial Spaces: Normal for age. No subdural or epidural collections identified. Ventricles: Normal in size and position. Sinuses and Orbits: Imaged paranasal sinuses, orbits, and mastoids show no significant abnormality. Bones: No evidence of fracture or calvarial defect. Mild hyperostosis frontalis interna. Other: Small right anterior frontal subgaleal scalp hematoma. IMPRESSION: 1. Small right forehead scalp contusion without skull fracture. 2. Brain is unremarkable. No intracranial hemorrhage. [facility] Referring Provider Line: [phone] SITE ID: [id number]
--- NOTE | 2017-12-24 09:29 | CT Preliminary Report ---
Exam: CT HEAD W/O IMPRESSION: 1. Small right forehead scalp contusion without skull fracture. 2. Brain is unremarkable. No intracranial hemorrhage. [facility] SITE ID: [id number]
--- NOTE | 2017-12-24 09:41 | XRAY Preliminary Report ---
Exam: XR HIP W/PELVIS 1V LT IMPRESSION: Left total hip arthroplasty, as before. No pelvic or proximal left femur fracture is iden tified. [facility] SITE ID: [id number]
--- NOTE | 2017-12-24 09:42 | XRAY Report ---
EXAM: LEFT HIP AND PELVIS RADIOGRAPHY EXAM DATE: 12/24/2017 09:27 AM. HISTORY: Left hip pain after falling with seizure. COMPARISONS: 12/19/2015. TECHNIQUE: 1 view of the pelvis and 3 views of the hip. FINDINGS: As before, there is a left total hip arthroplasty with cemented-filled acetabular component and cemented longstem femoral component. There is marked bone loss along the lateral aspect of the p roximal shaft, as before. There is a nonunited greater trochanteric fragment, as before. There are 4 cerclage wires along the proximal femoral shaft, as before. There is no meliza evidence of loosening. There is no evidence of acute fracture or malalignment. Bony pelvis is unremarkable. Right hip, pubic symphysis, and sacroiliac joints are unremarkable. Ther e appears to be bone graft at the L5-S1 disk space, as before. IMPRESSION: Left total hip arthroplasty, as before. No pelvic or proximal left femur fracture is iden tified. MARIA DEL CARMEN Referring Provider Line: [phone] SITE ID: [id number]
[2017-12-24] MEDS ORDERED: POTASSIUM CHLORIDE 20 MEQ TABLET PO STA (10:56)
[2017-12-24] MEDS ORDERED: fentaNYL 25 MCG PATCH TOP STA (11:24)
[2017-12-24 11:34] LABS: BILIRUBIN,URINE NEGATIVE (NEGATIVE); CLARITY,URINE CLEAR (CLEAR); GLUCOSE, URINE (UA) NEGATIVE (NEGATIVE); KETONES,URINE (UA) NEGATIVE (NEGATIVE); LEUKOCYTE ESTERASE, URINE NEGATIVE (NEGATIVE); NITRITE,URINE NEGATIVE (NEGATIVE); OCCULT BLOOD,URINE SMALL (NEGATIVE); PH,URINE 5.5 PH (5.0-7.5); PROTEIN,URINE TRACE mg/dL (NEGATIVE); UROBILINOGEN,URINE 0.2 (NORMAL) E.U./dL (NORMAL)
[2017-12-24 11:50] LABS: BACTERIA,URINE None Seen /HPF (None Seen); RBC,URINE None Seen /HPF (0-5); SQUAMOUS EPITHELIAL CELL,UR NONE SEEN (<= Few)
[2017-12-24] MEDS ORDERED: fentaNYL 25 MCG PATCH TOP SCH (12:00)
[2017-12-24 12:18] VITALS: BP 147/78
== END 2017-12-24 13:27 | disposition home or self-care (01) ==
LOC: EDUNIT# → ED 08:03
DX: S00.83XA Contusion of other part of head, initial encounter (principal); G40.909 Epilepsy, unspecified, not intractable, without status epilepticus; W18.39XA Other fall on same level, initial encounter; M32.9 Systemic lupus erythematosus, unspecified; Z85.43 Personal history of malignant neoplasm of ovary; G89.29 Other chronic pain; Z79.899 Other long term (current) drug therapy; I10 Essential (primary) hypertension; E78.00 Pure hypercholesterolemia, unspecified; E03.9 Hypothyroidism, unspecified; K21.9 Gastro-esophageal reflux disease without esophagitis; M19.90 Unspecified osteoarthritis, unspecified site; Z87.11 Personal history of peptic ulcer disease; Z87.891 Personal history of nicotine dependence
CPT/HCPCS: 36415; 70450; 73501; 80053; 81001; 83690; 85025; 99284; A9270; 81003; 87086

== ENCOUNTER 2018-02-09 | Outpatient (CLI) | END 2018-02-09 10:08 | disposition critical access hospital (66) | CPT/HCPCS: A0425; A0429 ==

== ENCOUNTER 2018-02-09 10:25 | Observation (INO) | payer MEDICARE, MEDICAID ==
--- NOTE | 2018-02-09 11:34 | ED Physician Documentation ---
PD HPI FOCAL NEURO - Stated complaint Stated Complaint: POSS CVA - Chief complaint Chief Complaint: Neuro - History obtained from History obtained from: Patient, Family, EMS - History of Present Illness Timing - onset: Yesterday Timing - duration: Days (1) Timing - details: Gradual onset, Still present Severity of deficit: Moderate Weakness: No: Face, Arm, Hand, Leg, Foot, Right, Left, Other Numbness: No: Face, Arm, Hand, Leg, Foot, Right, Left, Other Associated symptoms: Other (expressive aphasia) Contributing factors: positive: Vascular dz Baseline status: positive: A&OX3, ambulatory, indep Similar symptoms before: Has not had sx before Recently seen: Not recently seen - Additional information Additional information: 52 y/o female was having an off day yesterday and was less interactive than usual. Today she is not able to speak more than yes and no. She does not have lateralizing motor findings. Review of Systems Unable to obtain: AMS, Confused Constitutional: denies: Fever Ears: denies: Ear pain Nose: denies: Congestion Throat: denies: Sore throat Cardiac: denies: Chest pain / pressure, Palpitations Respiratory: denies: Dyspnea GI: denies: Vomiting : denies: Dysuria Skin: denies: Rash Musculoskeletal: denies: Neck pain Neurologic: reports: Generalized weakness, Difficulty speaking, Confused, Altered mental status. denies: Focal weakness, Seizure, Head injury PD PAST MEDICAL HISTORY - Past Medical History Cardiovascular: Hypertension, High cholesterol Respiratory: Asthma, Pneumonia Endocrine/Autoimmune: HyPOthyroidism, Systemic lupus erythematosus GI: GERD, Ulcers, C.difficile BUILDING PRINCIPAL: Ovarian cancer : Renal insuffiency, Nocturia, Frequency, Kidney stones HEENT: None Psych: Depression, Other (opioid dependence) Musculoskeletal: Osteoarthritis, Fatigue, Chronic back pain Derm: Other drug resistant infections, Psoriasis - Past Surgical History Past Surgical History: Yes General: Cholecystectomy, Appendectomy Ortho: Hip replacement, Spine surgery /BUILDING PRINCIPAL: 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, Oophrectomy - Present Medications Home Medications: Ambulatory Orders Medication Instructions Recorded Confirmed traZODone [Desyrel] 150 mg PO QPM 10/14/16 11/04/17 Carvedilol [Coreg] 6.25 mg PO BID tablet 10/15/16 11/04/17 Phenytoin [Dilantin] 400 mg PO QPM capsule 10/15/16 11/04/17 Chlorthalidone 50 mg ORAL BID 01/23/17 11/04/17 FLUoxetine [PROzac] 20 mg PO DAILY 01/23/17 11/04/17 amLODIPine [Norvasc] 10 mg PO DAILY 01/23/17 11/04/17 Loperamide HCl [Anti-Diarrheal] 4 mg PO PRN PRN 01/30/17 11/04/17 Codeine/Butalbital/ASA/Caffein 2 cap QID PRN 02/09/18 02/09/18 [Fiorinal with Codeine #3 Cap] Dramamine 100 mg QID PRN 02/09/18 Gemfibrozil [Lopid] 600 mg PO BIDAC 02/09/18 02/09/18 Methocarbamol [Robaxin-750] 750 mg PO QID 02/09/18 02/09/18 Omeprazole [PriLOSEC] 20 mg PO BID 02/09/18 02/09/18 Oxycodone HCl/Acetaminophen 2.5 tab DAILY 02/09/18 02/09/18 [Oxycodone-Acetaminophen 5-325] Pregabalin [Lyrica] 100 mg PO 02/09/18 Prochlorperazine [Compazine] 8 mg QID PRN 02/09/18 02/09/18 diphenhydrAMINE [Benadryl] 50 02/09/18 fentaNYL [Fentanyl 50mcg patch] 1 Q72H 02/09/18 levETIRAcetam [Keppra] 1,000 mg PO BID 02/09/18 02/09/18 - Allergies Allergies/Adverse Reactions: Allergies Allergy/AdvReac Type Severity Reaction Status Date / Time Penicillins Allergy Severe Respiratory Verified 02/09/18 10:49 bacitracin Allergy Mild Hives Verified 02/09/18 10:49 [From Neosporin ([id number])] bacitracin zinc * Allergy Mild Itching Verified 02/09/18 10:49 [From Neosporin (pli-bgl-aehvy)] neomycin sulfate * Allergy Mild Itching Verified 02/09/18 10:49 [From Neosporin (qwa-[id number]-[id number])] venom-honey bee Allergy Unknown Verified 02/09/18 10:49 [bee venom (honey bee)] ciprofloxacin AdvReac Emesis Verified 02/09/18 10:49 - Social History Does the pt smoke?: No Smoking Status: Former smoker Does the pt drink ETOH?: No Does the pt have substance abuse?: No - Immunizations Immunizations are current?: Yes - POLST Patient has POLST: Yes POLST Status: DNR PD ED PE NORMAL - Vitals Vital signs reviewed: Yes (hypertensive ) - General General: No acute distress, Well developed/nourished, Other (altert oriented but unable to speak other than yes and no. ) - HEENT HEENT: Atraumatic, PERRL, EOMI - Neck Neck: Supple, no meningeal sign - Cardiac Cardiac: RRR, No murmur - Respiratory Respiratory: No respiratory distress, Clear bilaterally - Abdomen Abdomen: Soft, Non tender - Back Back: No CVA TTP, No spinal TTP - Derm Derm: Normal color, Warm and dry, No rash - Extremities Extremities: No deformity, No edema - Neuro Neuro: negative notcher 2-12 intact, No motor deficit, No sensory deficit, Other (speech is confined to single words ) Eye Opening: Spontaneous Motor: Obeys Commands Verbal: Oriented GCS Score: 15 - Psych Psych: Normal mood, Normal affect NIHSS - Level of Consciousness Level of consciousness: (0) Alert, Keenly responsive LOC Questions: (0) Answers both Q's correct LOC Commands: (0) Performs both correctly - Gaze Best Gaze: (0) Normal - Visual Visual: (0) No loss - Facial Palsy Facial Palsy: (0) Normal, symmetrical movement - Motor Arms (both separate) Motor Arm (right): (0) No drift Motor Arm (left): (0) No drift - Motor Legs (both separate) Motor Leg (right): (0) No drift Motor Leg (left): (0) No drift - Limb Ataxia Limb Ataxia: (0) Absent - Sensory Sensory: (0) Normal - Best Language Best Language: (2) Severe aphasia - Dysarthria Dysarthria: (1) [id number] dysarthria - Extinction and Inattention (formally neg Extinction and inattention: (1) Visual,tactile,auditory,spatial, or personal inattention - Total Score/Results Total Score/Result: 4 Results - Vitals Vitals: Vital Signs - 24 hr 02/09/18 02/09/18 02/09/18 10:26 10:45 11:00 Temperature 36.3 C L Heart Rate 92 96 Respiratory 11 L 16 Rate Blood Pressure 188/111 H 184/102 H 175/101 H O2 Saturation 100 96 02/09/18 14:14 Temperature Heart Rate 100 Respiratory 12 Rate Blood Pressure 172/104 H O2 Saturation 99 Oxygen O2 Source Room air - Labs Labs: Laboratory Tests 02/09/18 02/09/18 02/09/18 11:25 11:25 11:25 WBC 11.8 H RBC 4.82 Hgb 13.9 Hct 41.2 MCV 85.6 MCH 28.9 MCHC 33.7 RDW 14.0 Plt Count 336 MPV 8.0 Neut # (Auto) 7.6 H Lymph # (Auto) 2.9 Sanders # (Auto) 1.0 Eos # (Auto) 0.2 Baso # (Auto) 0.1 Absolute Nucleated RBC 0.00 Nucleated RBC % 0.0 Sodium 131 L Potassium 2.5 L* Chloride 99 L Carbon Dioxide 22 Anion Gap 10.0 BUN 8 Creatinine 0.6 Estimated GFR (MDRD) 105 Glucose 112 H Calcium 9.1 Total Bilirubin 0.7 AST 18 ALT 13 Alkaline Phosphatase 135 H Troponin I < 0.04 Total Protein 7.8 Albumin 4.2 Globulin 3.6 Albumin/Globulin Ratio 1.2 Lipase 17 L Urine Color Urine Clarity Urine pH Ur Specific [place] Urine Protein Urine Glucose (UA) Urine Ketones Urine Occult Blood Urine Nitrite Urine Bilirubin Urine Urobilinogen Ur Leukocyte Esterase Urine RBC Urine WBC Ur Squamous Epith Cells Urine Bacteria Ur Microscopic Review Urine Culture Comments Urine Opiates Screen Ur Oxycodone Screen Urine Methadone Screen Ur Propoxyphene Screen Ur Barbiturates Screen Phenytoin Ur Tricyclics Screen Ur Phencyclidine Scrn Ur Amphetamine Screen U Methamphetamines Scrn U Benzodiazepines Scrn Urine Cocaine Screen U Cannabinoids Screen Ethyl Alcohol < 5.0 02/09/18 02/09/18 11:25 11:30 WBC RBC Hgb Hct MCV MCH MCHC RDW Plt Count MPV Neut # (Auto) Lymph # (Auto) Sanders # (Auto) Eos # (Auto) Baso # (Auto) Absolute Nucleated RBC Nucleated RBC % Sodium Potassium Chloride Carbon Dioxide Anion Gap BUN Creatinine Estimated GFR (MDRD) Glucose Calcium Total Bilirubin AST ALT Alkaline Phosphatase Troponin I Total Protein Albumin Globulin Albumin/Globulin Ratio Lipase Urine Color YELLOW Urine Clarity CLEAR Urine pH 6.5 Ur Specific [place] <=1.005 Urine Protein NEGATIVE Urine Glucose (UA) NEGATIVE Urine Ketones NEGATIVE Urine Occult Blood MODERATE H Urine Nitrite NEGATIVE Urine Bilirubin NEGATIVE Urine Urobilinogen 0.2 (NORMAL) Ur Leukocyte Esterase NEGATIVE Urine RBC 0-5 Urine WBC 0-3 Ur Squamous Epith Cells RARE Squamous Urine Bacteria Rare Ur Microscopic Review INDICATED Urine Culture Comments NOT INDICATED Urine Opiates Screen POSITIVE H Ur Oxycodone Screen NEGATIVE Urine Methadone Screen NEGATIVE Ur Propoxyphene Screen NEGATIVE Ur Barbiturates Screen POSITIVE H Phenytoin < 2.5 Ur Tricyclics Screen NEGATIVE Ur Phencyclidine Scrn NEGATIVE Ur Amphetamine Screen NEGATIVE U Methamphetamines Scrn POSITIVE H U Benzodiazepines Scrn NEGATIVE Urine Cocaine Screen NEGATIVE U Cannabinoids Screen NEGATIVE Ethyl Alcohol - Rads (name of study) CT head angio Radiology: Prelim report reviewed (Impression: CT head: 1. No acute intracranial abnormality. Specifically, no evidence of acute infarct hemorrhage , or mass lesion. No abnormal enhancement. CTA head: Normal CTA of the head. No significant vascular stenosis, dissection, or aneurysm.), EMP read indepedently, See rad report Procedures - IVC sono (time) 1300 Bedside IVC sono: IVC measures (cm) (0.63), Significant dehydration (est 3 liter deficit) PD MEDICAL DECISION MAKING - ED course Complexity details: reviewed old records, reviewed results, re-evaluated patient , considered differential, d/w patient, d/w family ED course: 52-year-old female survivor of ovarian cancer and with a complicated history including seizure disorder and chronic pain was less interactive yesterday and today is appearing confused and with an inability to speak. She is only able to answer yes no to simple questions. She is found to have a markedly decreased vascular volume and IV saline is begun. She is afebrile, white count mildly elevated at 11.8. CXR is clear as is urine. It appears she has not taken her dilantin and the level is low. She has not had a witnessed seizure but she is acting post ictal. She required the assistance of anesthesia for placement of a line and this is a left EJ. She does not clear in the 5 hours she is in the ED and admission is sought. - Sepsis Event Vital Signs: Vital Signs - 24 hr 02/09/18 02/09/18 02/09/18 10:26 10:45 11:00 Temperature 36.3 C L Heart Rate 92 96 Respiratory 11 L 16 Rate Blood Pressure 188/111 H 184/102 H 175/101 H O2 Saturation 100 96 06/19/18 14:14 Temperature Heart Rate 100 Respiratory 12 Rate Blood Pressure 172/104 H O2 Saturation 99 Oxygen O2 Source Room air Departure - Departure Disposition: 66 [facility] DC/Xfer Clinical Impression: Stroke-like symptoms, Hypokalemia, Dehydration, Confusion
[2018-02-09 11:35] LABS: BASOPHILS # (AUTO) 0.1 10^3/uL (0.0-0.1); BASOPHILS % (AUTO) 0.9 %; EOSINOPHILS # (AUTO) 0.2 10^3/uL (0.0-0.7); EOSINOPHILS % (AUTO) 1.8 %; HGB - HEMOGLOBIN 13.9 g/dL (12.0-16.0); LYMPHOCYTES # (AUTO) 2.9 10^3/uL (1.5-3.5); LYMPHOCYTES % (AUTO) 24.4 %; MEAN CORPUSCULAR HEMOGLOBIN 28.9 pg (27.0-31.0); MEAN CORPUSCULAR HGB CONC 33.7 g/dL (32.0-36.0); MEAN CORPUSCULAR VOLUME 85.6 fL (81.0-99.0); MONOCYTES % (AUTO) 8.2 %; NEUTROPHILS # (AUTO) 7.6 10^3/uL (1.5-6.6); NEUTROPHILS % (AUTO) 64.7 %; PLT - PLATELET COUNT 336 10^3/uL (130-450); RED BLOOD COUNT 4.82 10^6/uL (4.20-5.40); WHITE BLOOD COUNT 11.8 x10^3/uL (4.8-10.8)
[2018-02-09 11:44] LABS: MUDS CUTOFF CONCENTRATIONS CUTOFF CONC BELOW:
[2018-02-09] MEDS ORDERED: IOPAMIDOL-300 100 ML VIAL ONE (11:50)
[2018-02-09 11:51] LABS: ALBUMIN 4.2 g/dL (3.2-5.5); ALBUMIN/GLOBULIN RATIO 1.2 (1.0-2.2); ALKALINE PHOSPHATASE 135 IU/L (42-121); ALT ALANINE AMINOTRANSFERASE 13 IU/L (10-60); AST ASPARTATE AMINOTRANSFERASE 18 IU/L (10-42); BILIRUBIN,TOTAL 0.7 mg/dL (0.2-1.0); BUN - BLOOD UREA NITROGEN 8 mg/dL (6-20); CALCIUM 9.1 mg/dL (8.5-10.3); CARBON DIOXIDE - CO2 22 mmol/L (21-32); CHLORIDE 99 mmol/L (101-111); CREATININE 0.6 mg/dL (0.4-1.0); GFR - MDRD 105 (>89); GLUCOSE 112 mg/dL (70-100); LIPASE 17 U/L (22-51); SODIUM 131 mmol/L (135-145); TOTAL PROTEIN 7.8 g/dL (6.7-8.2)
[2018-02-09 11:54] LABS: BILIRUBIN,URINE NEGATIVE (NEGATIVE); GLUCOSE, URINE (UA) NEGATIVE (NEGATIVE); KETONES,URINE (UA) NEGATIVE (NEGATIVE); LEUKOCYTE ESTERASE, URINE NEGATIVE (NEGATIVE); NITRITE,URINE NEGATIVE (NEGATIVE); OCCULT BLOOD,URINE MODERATE (NEGATIVE); PH,URINE 6.5 PH (5.0-7.5); PROTEIN,URINE NEGATIVE (NEGATIVE); UROBILINOGEN,URINE 0.2 (NORMAL) E.U./dL (NORMAL)
[2018-02-09 11:59] LABS: CLARITY,URINE CLEAR (CLEAR)
[2018-02-09 12:06] LABS: AMPHETAMINE SCREEN,URINE NEGATIVE (NEGATIVE); BENZODIAZEPINES SCREEN, URINE NEGATIVE (NEGATIVE); COCAINE SCREEN URINE NEGATIVE (NEGATIVE); METHADONE SCREEN, URINE NEGATIVE (NEGATIVE); METHAMPHETAMINES SCREEN, URINE POSITIVE (NEGATIVE); OPIATE SCREEN, URINE POSITIVE (NEGATIVE); OXYCODONE SCREEN, URINE NEGATIVE (NEGATIVE); PROPOXYPHENE SCREEN, URINE NEGATIVE (NEGATIVE); TRICYCLIC ANTIDEPRESSANT,URINE NEGATIVE (NEGATIVE)
[2018-02-09 12:14] LABS: RBC,URINE 0-5 /HPF (0-5)
[2018-02-09 12:15] LABS: BACTERIA,URINE Rare /HPF (None Seen); SQUAMOUS EPITHELIAL CELL,UR RARE Squamous (<= Few)
[2018-02-09] MEDS ORDERED: POTASS CIT/CITRIC ACID ORAL 1 EACH PACKET PO STA (12:24)
--- NOTE | 2018-02-09 12:47 | CT Report ---
Procedure Date: 02/09/2018 Accession Number: [id number] / [id number] Procedure: CT - Neck Angio CPT Code: FULL RESULT: EXAM: CT ANGIOGRAM NECK EXAM DATE: 02/09/2018 11:05 AM. CLINICAL HISTORY: Expressive aphasia. COMPARISON: CT scan and CT angiogram of the head 02/09/2018. TECHNIQUE: Routine axial helical imaging was performed from the skull base through the aortic arch. Reconstructions: Routine multiplanar 3D MIP reconstructions. IV Contrast: ISOVUE 300 80mL. Evaluation of arterial stenosis is based on a NASCET method of measurement. In accordance with CT protocol optimization, one or more of the following dose reduction techniques were utilized for this exam: automated exposure control, adjustment of mA and/or KV based on patient size, or use of iterative reconstructive technique. FINDINGS: The visualized aortic arch is unremarkable. Conjoined origin of right brachiocephalic and left common carotid arteries is seen. Tortuosity of the great vessels off the arch is seen. The great vessels are patent. Right Carotid: The common carotid, internal carotid, and external carotid arteries are widely patent. No dissection, significant atherosclerotic plaque, or calcification identified. A vascular loop is noted in the mid cervical ICA. Left Carotid: The common carotid, internal carotid, and external carotid arteries are widely patent. No dissection, significant atherosclerotic plaque, or calcification identified. A vascular loop is noted in the proximal cervical ICA. Vertebrals: The vertebrobasilar system shows no stenoses. Intracranial Circulation: Unremarkable. (See report of CT angiogram of the head performed same time.) Other: The visualized lung apices are clear. The muscle and fascial planes of the neck are unremarkable. Lobularity is seen in the right lobe of the thyroid gland. 13 mm hypodense nodule with punctate calcification is seen. Lobularity is seen projected inferiorly from the left lobe of the thyroid gland measuring up to 16 mm. This could be further evaluated with thyroid ultrasound. Note is made of solid osseous anterior interbody fusion at C4-C5 and C5-C6. Spondylosis with degenerative disk and uncovertebral change is seen at C3-C4. Moderate right foraminal stenosis. Note is made of anterior subluxation at the right TMJ. IMPRESSION: 1. Normal neck CT angiogram. No hemodynamically significant stenoses or atherosclerotic change. No dissection. RADIA
--- NOTE | 2018-02-09 12:47 | CT Report ---
Procedure Date: 02/09/2018 Accession Number: [id number] / [id number] Procedure: CT - Head Angio CPT Code: FULL RESULT: EXAM: CT ANGIOGRAM HEAD. CT SCAN OF THE HEAD WITHOUT AND WITH CONTRAST. EXAM DATE: 02/09/2018 11:05 AM CLINICAL HISTORY: Expressive aphasia. COMPARISON: CT angiogram of the neck 02/09/2018. CT scan of the head 12/24/2017. TECHNIQUE: - CT Scan Head: Using a multidetector scanner, axial images were acquired from the foramen magnum to the skull vertex prior to and following contrast administration. - CT Angiogram: Using a multidetector scanner, high-resolution axial images were acquired from the skull base through vertex following rapid infusion of intravenous contrast. Reformats: Multiplanar MIP reformats were reconstructed. Nascet criteria used for stenosis measurement. IV Contrast: ISOVUE 300 80 mL. In accordance with CT protocol optimization, one or more of the following dose reduction techniques were utilized for this exam: automated exposure control, adjustment of mA and/or KV based on patient size, or use of iterative reconstructive technique. FINDINGS: NON-CONTRAST HEAD: Parenchyma: No intraparenchymal hemorrhage. No evidence of mass, midline shift, or CT findings of infarction. Pablo-white differentiation is distinct. Extraaxial Spaces: Normal for age. No subdural or epidural collections identified. Ventricles: Normal in size and position. Sinuses and orbits: Imaged paranasal sinuses, orbits, and mastoids show no significant abnormality. Bones: No evidence of fracture or calvarial defect. Note is made of hyperostosis frontalis interna. Note is made of anterior subluxation at the right TMJ. Other: None. POST-CONTRAST HEAD: No abnormal enhancement. CT ANGIOGRAM HEAD: RIGHT: Internal Carotid artery: No evidence of dissection. No evidence of aneurysm along the intracranial ICA. Anterior Cerebral Artery: Patent without significant stenosis, aneurysm, or vascular malformation. Middle Cerebral Artery: Patent without significant stenosis, aneurysm, or vascular malformation. Posterior Cerebral Artery: Patent without significant stenosis, aneurysm, or vascular malformation. Posterior Communicating Artery: Not visualized. Vertebral Artery: Patent without significant stenosis. No evidence of dissection. LEFT: Internal Carotid artery: No evidence of dissection. No evidence of aneurysm along the intracranial ICA. Anterior Cerebral Artery: Patent without significant stenosis, aneurysm, or vascular malformation. Middle Cerebral Artery: Patent without significant stenosis, aneurysm, or vascular malformation. Posterior Cerebral Artery: Patent without significant stenosis, aneurysm, or vascular malformation. Posterior Communicating Artery: Not visualized. Vertebral Artery: Patent without significant stenosis. No evidence of dissection. CENTRAL: Anterior Communicating Artery: Patent. No aneurysm. Basilar Artery: Patent without significant stenosis. No aneurysm. DURAL VENOUS SINUSES AND MAJOR CENTRAL VEINS: Patent. IMPRESSION: CT Head: 1. No acute intracranial abnormality. Specifically, no evidence of acute infarct, hemorrhage, or mass lesion. No abnormal enhancement. CTA Head: 1. Normal CTA of the head. No significant vascular stenosis, dissection, or aneurysm. RADIA
[2018-02-09] MEDS ORDERED: SODIUM CHLORIDE 0.9% 1,000 ML IV ONE (13:01)
--- NOTE | 2018-02-09 14:10 | PROCEDURE REPORT ---
Hospitalist Procedure Note - Procedure Note Procedure Note: #20 G IV started to left external jugular per ER physician request. Patient tolerated well.
--- NOTE | 2018-02-09 15:07 | XRAY Report ---
Procedure Date: 02/09/2018 Accession Number: [id number] / [id number] Procedure: XR - Chest 2 View X-Ray CPT Code: 55489 FULL RESULT: EXAM: CHEST RADIOGRAPHY EXAM DATE: 02/09/2018 02:47 PM. CLINICAL HISTORY: Confusion. COMPARISON: 01/30/2017. TECHNIQUE: 2 views. FINDINGS: Lungs/Pleura: Clear. No effusion or pneumothorax. Mediastinum: Heart and mediastinal contours are unremarkable. Other: None. IMPRESSION: No acute disease. RADIA
[2018-02-09] MEDS ORDERED: IOPAMIDOL-300 100 ML VIAL IVP ONE (15:30)
[2018-02-09] MEDS ORDERED: ONDANSETRON 4 MG/2 ML VIAL IVP PRN (16:28)
[2018-02-09] MEDS ORDERED: SODIUM CHLORIDE FLUSH 0.9% 10 ML SYRINGE IVP PRN (16:28)
[2018-02-09] MEDS ORDERED: ACETAMINOPHEN 325 MG TABLET PO PRN (16:28)
[2018-02-09] MEDS ORDERED: LOPERAMIDE 2 MG CAPSULE PO PRN (16:43)
--- NOTE | 2018-02-09 16:54 | HISTORY & PHYSICAL EXAMINATION ---
Chief Complaint - Chief Complaint Chief Complaint: AMS History of Present Illness - Admitted From Admitted From:: er - History Obtained From History obtained from: pt's caregiver, her daughter - History of Present Illness HPI Comment/Other: Ms. Centeno is a 51-year-old female with a H significance for seizure disorder , hypertension, history of ovarian cancer, status post hysterectomy and bilateral oophorectomy in 1995 followed by chemotherapy and radiation, left hip replacement with complication of multiple infections, including infected hardware requiring removal and two further hip replacements with osteomyelitis and long-term antibiotics now off antibiotics and non weight bearing on left, hypothyroidism, chronic pain disorder, psoriasis, history of breast syndrome, history of occipital lobe masses for which she follows with neurology at [facility] who presented to the emergency department with a chief complaint of stroke-like symptoms. Pt is only able to answer yes or no to questions. When assessing pt, pt does not show unilateral motor and sensation findings, not appears focal neurological deficit. Pt's daughter, her caregiver, report she begin this inability of speech from last night, and worsen on today. She worried about if pt has a stroke. CTA of head and neck are negative acute findings. pt has slight elevated WBC and Potassium at 2.5. Pt is afebriel and elevated BP. UDS reveals positive for methamphetamine. Daughter report she took care of her mother only, no other people contacted with her mother. She state last time in pt's PCP office, her mother also was positive for methamphetamine. She can not explain why her mother is positive for methamphetamine. History - Past Medical History Cardiovascular: reports: Hypertension, High cholesterol Respiratory: reports: Asthma, Pneumonia Neuro: reports: Seizure disorder Endocrine/Autoimmune: reports: HyPOthyroidism, Systemic lupus erythematosus GI: reports: GERD, Ulcers, C.difficile CARVER HAND: reports: Ovarian cancer : reports: Renal insuffiency, Nocturia, Frequency, Kidney stones HEENT: reports: None Psych: reports: Depression, Other (opioid dependence) Musculoskeletal: reports: Osteoarthritis, Fatigue, Chronic back pain Derm: reports: Other drug resistant infections, Psoriasis MRSA Hx?: Yes - Past Surgical History General: reports: Cholecystectomy, Appendectomy Ortho: reports: Hip replacement, Spine surgery /CARVER HAND: reports: 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, Oophrectomy - Family & Social History Family History: Mother: Alive and Well, Father: , CAD Family History Comment/Other: Mother is alive and well, with Lupus. Father from heart disease. The patient is an only child. Social History Notes: The patient has one daughter and her first when her daughter was 2 years old. The patient is legally from her 2nd . She is living with her daughter and her daughter's boyfriend in [place]. There are 2 dogs in the home, and the patient has one cat named Andrew. She no longer drives. 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 She was using a walker and and has been nonweightbearing on the left side since her surgeries. She can perform all of her daily ADLs, but very little house work. She denies ETOH, tobacco, or illicit drug use. She wishes to be a DNR. - Substance History Use: Uses substance without health or social issues: Opioid - POLST Patient has POLST: Yes POLST Status: DNR Meds/Allgy - Home Medications Home Medications: Ambulatory Orders Medication Instructions Recorded Confirmed traZODone [Desyrel] 150 mg PO QPM 10/14/16 02/09/18 Carvedilol [Coreg] 6.25 mg PO BID tablet 10/15/16 02/09/18 Phenytoin [Dilantin] 400 mg PO QPM capsule 10/15/16 02/09/18 Chlorthalidone 50 mg PO DAILY 01/23/17 02/09/18 FLUoxetine [PROzac] 20 mg PO DAILY 01/23/17 02/09/18 amLODIPine [Norvasc] 10 mg PO DAILY 01/23/17 02/09/18 Loperamide HCl [Anti-Diarrheal] 4 mg PO PRN PRN 01/30/17 02/09/18 Gemfibrozil [Lopid] 600 mg PO BIDAC 02/09/18 02/09/18 Methocarbamol [Robaxin-750] 750 mg PO QID 02/09/18 02/09/18 Omeprazole [PriLOSEC] 20 mg PO BID PRN 02/09/18 02/09/18 Oxycodone HCl/Acetaminophen 1 tab PO Q4H PRN 02/09/18 02/09/18 [Oxycodone-Acetaminophen 5-325] Pregabalin [Lyrica] 100 mg PO TID 02/09/18 02/10/18 Prochlorperazine [Compazine] 8 mg PO QID 02/09/18 02/09/18 dimenhyDRINATE [Dimenhydrinate] 100 mg PO QID 02/09/18 02/09/18 diphenhydrAMINE [Benadryl] 50 mg PO QID 02/09/18 02/09/18 fentaNYL [Fentanyl 50mcg patch] 50 mcg TOP Q72H 02/09/18 02/09/18 levETIRAcetam [Keppra] 1,000 mg PO BID 02/09/18 02/09/18 Butalbit/Acetamin/Caff/Codeine 1 cap PO TID PRN 02/10/18 02/10/18 [Uwrdzf-Haof-Crtvlhpcgme-Codein] - Allergies Allergies/Adverse Reactions: Allergies Allergy/AdvReac Type Severity Reaction Status Date / Time Penicillins Allergy Severe Respiratory Verified 02/09/18 10:49 bacitracin Allergy Mild Hives Verified 02/09/18 10:49 [From Neosporin (uvy-[id number])] bacitracin zinc * Allergy Mild Itching Verified 02/09/18 10:49 [From Neosporin (iwa-ssa-hszym)] neomycin sulfate * Allergy Mild Itching Verified 02/09/18 10:49 [From Neosporin (yvz-qpe-ovwds)] venom-honey bee Allergy Unknown Verified 02/09/18 10:49 [bee venom (honey bee)] ciprofloxacin AdvReac Emesis Verified 02/09/18 10:49 Review of Systems - Constitutional Constitutional: reports: Fatigue, Weakness. denies: Fever, Chills, Diaphoresis - Eyes Eyes: denies: Pain, Blurred vision, Spots in vision, Field loss, Vision loss - Ears, Nose & Throat Ears, Nose & Throat: denies: Ear pain, Vertigo, Nasal pain, Nosebleeds, Sore throat, Mouth lesions, Bleeding gums - Cardiovascular Cariovascular: denies: Irregular heart rate, Palpitations, Chest pain, Edema, Lightheadedness, Syncope, Exertional dyspnea - Respiratory Respiratory: denies: Cough, Sputum production, Wheezing, Snoring, Hemoptysis, Orthopnea, SOB at rest - Gastrointestinal Gastrointestinal: denies: Abdominal pain, Constipation, Diarrhea, Change in bowel habits, Rectal bleeding, Black stools, Bloody stools, Nausea, Vomiting, Galen blood emesis, Coffee grounds emesis - Genitourinary Genitourinary: reports: Incontinence. denies: Dysuria, Frequency, Urgency, Hematuria - Musculoskeletal Musculoskeletal: denies: Muscle pain, Back pain, Muscle aches, Joint pain, Joint swelling - Integumentary Integumentary: denies: Rash, Lesions, Dryness, Lumps, Pigment changes - Neurological Neurological: reports: General weakness, Slurred speech. denies: Focal weakness , Headache, Dizziness, Numbness, Seizures - Psychiatric Psychiatric: denies: Suicidal, Homicidal - Endocrine Endocrine: denies: Polyuria, Polydypsia, Polyphagia - Hematologic/Lymphatic Hematologic/Lymphatic: denies: Petechiae, Bleeding tendencies Exam - Vital Signs Reviewed Vital Signs: Yes Vital Signs: Vital Signs x48h Temp Pulse Resp BP Pulse Ox 02/09/18 14:14 100 12 172/104 H 99 02/09/18 11:00 96 16 175/101 H 96 02/09/18 10:45 184/102 H 02/09/18 10:26 36.3 C L 92 11 L 188/111 H 100 - Physical Exam General Appearance: positive: No acute distress, Alert. negative: Lethargic Eyes Bilateral: positive: Normal inspection, PERRL. negative: No lid inflammation, Conjunctivae nml ENT: positive: ENT inspection nml, Pharynx nml. negative: Purulent nasal drainage, Pharyngeal erythema, Oral lesions Neck: positive: Nml inspection, Thyroid nml, No JVD. negative: Trachea midline , Thyromegaly, Lymphadenopathy (R), Lymphadenopathy (L), Stiff neck, Tracheal deviation Respiratory: positive: Chest non-tender, No respiratory distress, Breath sounds nml. negative: Wheezes, Rales, Rhonchi Cardiovascular: positive: Regular rate & rhythm, No murmur, No gallop. negative : Irregularly irregular, Extrasystoles, Tachycardia, Bradycardia, JVD present, Systolic murmur, Diastolic murmur Peripheral Pulses: positive: 2+ Abdomen: positive: Non-tender, No organomegaly, No distention, Other ( hypoacitive of bowel sound). negative: Tenderness, Guarding, Rebound Back: positive: Nml inspection. negative: CVA tenderness (R), CVA tenderness (L ) Skin: positive: Color nml, Warm, Dry, Laceration (cm), Other (a sore at right first finger and warmer than around area, very gently erythema). negative: Cyanosis, Diaphoresis, Pallor Extremities: positive: Non-tender, Full ROM, Nml appearance. negative: Calf tenderness, Joint swelling, Malinda's sign/cords Neurologic/Psychiatric: positive: Motor nml, Sensation nml, Slurred/abnml speech. negative: Sensory loss, Facial droop, Depressed mood/affect Conclusion/Plan - Problem List (1) Stroke-like symptoms Conclusion/Plan: pt does not speak and answer the question. daughter report she usually talked. But in the assessment pt does not present focus neurological deficit. CTA of head and neck are no acute findings. MRI ECHO tele and vital monitor lipid panel check neuro check (2) Hypokalemia Conclusion/Plan: chronic, replacement of potassium daily lab and vital monitor (3) Cellulitis Conclusion/Plan: right hand with mild erythema, and warm, and at the second finger with a sore. pt had MRSA hx before. elevated WBC but no fever,chill Bactrim po bid test MRSA blood culture, follow up (4) Dehydration Conclusion/Plan: pt clinically present dry mouth IVF of NS daily lab and vital monitor (5) HTN (hypertension) Conclusion/Plan: pt present HTN, and with stroke-like symptoms allow BP rise, will resume after test done, with PRN hydralazine (6) Hx of seizure disorder Conclusion/Plan: no acute seizure, per daughter report resume Keppra, dilantin, and check both serum concentration neuro check, seizure precaution (7) Hyponatremia Conclusion/Plan: Na 131, it seems hypovolume hyponatremia. IVF of NS daily lab monitor (8) DVT prophylaxis Conclusion/Plan: SCD and lovenox (9) Do not intubate, cardiopulmonary resuscitation (CPR)-only code status Conclusion/Plan: DNR - Lab Results Fish Bones: 02/10/18 06:18 02/10/18 06:18 Core Measures - Anticipated LOS I expect patient to be DC'd or transferred within 96 hours.: Yes - DVT/VTE - Prophylaxis VTE/DVT Device ordered at admit?: Yes VTE/DVT Prophylaxis med ordered at admit?: Yes
[2018-02-09] MEDS ORDERED: SODIUM CHLORIDE 0.9% 1,000 ML IV SCH (17:00)
[2018-02-09] MEDS ORDERED: ASPIRIN CHEW 81 MG TABLET ONE (17:50)
[2018-02-09] MEDS: ASPIRIN 325 MG TABLET PO SCH (18:02)
[2018-02-09] MEDS ORDERED: POTASSIUM CHLORIDE 20 MEQ TABLET PO SCH (18:02)
[2018-02-09] MEDS: amLODIPine 5 MG TABLET PO SCH (18:02)
[2018-02-09] MEDS: SULFAMETH/TRIMETH DS 800/160 MG TABLET PO SCH ×2 (18:02→19:39)
[2018-02-09] MEDS: CARVEDILOL 3.125 MG TABLET PO SCH ×2 (18:02→19:39)
[2018-02-09] MEDS: SODIUM CHLORIDE FLUSH 0.9% 10 ML SYRINGE IVP SCH ×2 (18:03→23:59)
[2018-02-09] MEDS ORDERED: hydrALAZINE INJ 20 MG/ML VIAL IVP PRN (18:08)
[2018-02-09] MEDS: NS W/40 MEQ KCL 1,000 ML IV SCH (19:37)
[2018-02-09] MEDS ORDERED: PHENYTOIN ER 100 MG CAPSULE PO SCH (21:00)
[2018-02-09] MEDS: levETIRAcetam 250 MG TABLET PO SCH (21:45)
[2018-02-10] MEDS: NS W/40 MEQ KCL 1,000 ML IV SCH (05:34)
[2018-02-10 06:25] LABS: BASOPHILS # (AUTO) 0.1 10^3/uL (0.0-0.1); BASOPHILS % (AUTO) 1.1 %; EOSINOPHILS # (AUTO) 0.3 10^3/uL (0.0-0.7); EOSINOPHILS % (AUTO) 4.7 %; LYMPHOCYTES # (AUTO) 2.5 10^3/uL (1.5-3.5); LYMPHOCYTES % (AUTO) 42.4 %; MEAN CORPUSCULAR HGB CONC 33.5 g/dL (32.0-36.0); MEAN CORPUSCULAR VOLUME 86.6 fL (81.0-99.0); MEAN PLATELET VOLUME 8.1 fL (7.9-10.8); MONOCYTES # (AUTO) 0.9 10^3/uL (0.0-1.0); MONOCYTES % (AUTO) 14.5 %; NEUTROPHILS # (AUTO) 2.2 10^3/uL (1.5-6.6); NEUTROPHILS % (AUTO) 37.3 %; PLT - PLATELET COUNT 284 10^3/uL (130-450); RED BLOOD COUNT 4.48 10^6/uL (4.20-5.40); RED CELL DISTRIBUTION WIDTH 14.1 % (12.0-15.0); WHITE BLOOD COUNT 5.9 x10^3/uL (4.8-10.8)
[2018-02-10 06:38] LABS: ALBUMIN 3.8 g/dL (3.2-5.5); ALBUMIN/GLOBULIN RATIO 1.2 (1.0-2.2); BILIRUBIN,TOTAL 0.4 mg/dL (0.2-1.0); CALCIUM 9.1 mg/dL (8.5-10.3); CREATININE 0.5 mg/dL (0.4-1.0); MAGNESIUM 1.7 mg/dL (1.7-2.8); PHENYTOIN (DILANTIN) 2.7 ug/mL; TOTAL PROTEIN 7.1 g/dL (6.7-8.2)
[2018-02-10 06:42] LABS: CHOL/HDL RATIO 6.1 (<4.4); CHOLESTEROL 206 mg/dL; HDL CHOLESTEROL 34 mg/dL; LDL CHOLESTEROL,CALCULATED 131 mg/dL; LDL/HDL RATIO 3.9 (<4.4); VLDL CHOLESTEROL 41 mg/dL
[2018-02-10] MEDS ORDERED: GEMFIBROZIL 600 MG TABLET PO SCH (07:00)
[2018-02-10] MEDS ORDERED: POTASSIUM CHLORIDE 20 MEQ TABLET PO ONE (08:14)
[2018-02-10] MEDS ORDERED: ENOXAPARIN 40 MG/0.4 ML SYRINGE SUBQ SCH (09:00)
[2018-02-10] MEDS ORDERED: CHLORTHALIDONE 25 MG TABLET PO SCH (09:00)
[2018-02-10] MEDS ORDERED: POLYETHYLENE GLYCOL 3350 17 GM PACKET PO SCH (09:00)
[2018-02-10] MEDS ORDERED: FAMOTIDINE 20 MG TABLET PO SCH (09:00)
[2018-02-10] MEDS: ASPIRIN 325 MG TABLET PO SCH (09:15)
[2018-02-10] MEDS: levETIRAcetam 250 MG TABLET PO SCH (09:16)
[2018-02-10] MEDS: CARVEDILOL 3.125 MG TABLET PO SCH (09:16)
[2018-02-10] MEDS: amLODIPine 5 MG TABLET PO SCH (09:17)
[2018-02-10] MEDS: SODIUM CHLORIDE FLUSH 0.9% 10 ML SYRINGE IVP SCH (10:23)
[2018-02-10] MEDS ORDERED: oxyCODONE/ACET 5/325 Prepack 4 PO PRN (10:28)
[2018-02-10] MEDS: SULFAMETH/TRIMETH DS 800/160 MG TABLET PO SCH (10:35)
[2018-02-10] MEDS ORDERED: oxyCOD/ACETAMIN 5 MG/325 MG TABLET PO PRN (10:43)
[2018-02-10] MEDS ORDERED: FLUoxetine 10 MG CAPSULE PO SCH (11:00)
[2018-02-10] MEDS ORDERED: PREGABALIN 100 MG CAPSULE PO SCH (11:00)
[2018-02-10] MEDS ORDERED: fentaNYL 50 MCG PATCH TOP SCH (12:00)
--- NOTE | 2018-02-10 15:51 | Discharge Plan ---
Discharge Plan Disposition: 01 Home, Self Care Condition: Poor Prescriptions: Potassium Chloride 20 meq PO DAILY #7 tab.er.prt Sulfamethox/Trimeth 800/160 [Bactrim Ds] 1 tab PO BID #10 tablet Diet: Regular Activity Restrictions: Activity as Tolerated Shower Restrictions: No (caregiver clolsely monitor, fall precaution) Instruction Topics: Cellulitis Ch, Sulfamethoxazole Trimethoprim SMX-TMP tablets, Hypokalemia Dc, Potassium Additional Instructions or Follow Up instructions: you may follow up your PCP in 2-3 days. Should your symptoms return or worsen, you may present ER or call 911 for help. No Smoking: If you smoke, Please STOP! Call for help. Follow-up with: Judith Hagan PA-C [Primary Care Provider] -
[2018-02-10 15:58] VITALS: BP 143/76
--- NOTE | 2018-02-10 16:00 | DISCHARGE SUMMARY ---
Discharge Summary Discharge Date: 02/10/18 Discharging Provider: MARTÍNEZ Primary Care Provider: Dr. Hagan Condition at Discharge: Poor Discharge Disposition: 01 Home, Self Care Discharge Facility Name: home - DIAGNOSES Admission Diagnoses: (1) Stroke-like symptoms (2) Hypokalemia (3) Cellulitis (4) Dehydration (5) HTN (hypertension) (6) Hx of seizure disorder (7) Hyponatremia Discharge Diagnoses with Status of Each Condition: (1) Stroke-like symptoms pt continue no focus deficit in hospital. pt return her mental status baseline per her daughter reports, she smile and talk with caregiver team. MRI, CTA of head, neck, ECHO, all reveals no acute findings. (2) Hypokalemia chronic. replaced, and prescribed potassium to home (3) Cellulitis controlled. WBC became normal, continue antibiotics course (4) Dehydration resolved (5) HTN (hypertension) stable (6) Hx of seizure disorder no seizure in hospital course. continue home regime, managed by PCP (7) Hyponatremia resolved - HPI History of Present Illness: Ms. Centeno is a 51-year-old female with a [facility] significance for seizure disorder , hypertension, history of ovarian cancer, status post hysterectomy and bilateral oophorectomy in 1995 followed by chemotherapy and radiation, left hip replacement with complication of multiple infections, including infected hardware requiring removal and two further hip replacements with osteomyelitis and long-term antibiotics now off antibiotics and non weight bearing on left, hypothyroidism, chronic pain disorder, psoriasis, history of breast syndrome, history of occipital lobe masses for which she follows with neurology at [facility] who presented to the emergency department with a chief complaint of stroke-like symptoms. Pt is only able to answer yes or no to questions. When assessing pt, pt does not show unilateral motor and sensation findings, not appears focal neurological deficit. Pt's daughter, her caregiver, report she begin this inability of speech from last night, and worsen on today. She worried about if pt has a stroke. CTA of head and neck are negative acute findings. pt has slight elevated WBC and Potassium at 2.5. Pt is afebriel and elevated BP. UDS reveals positive for methamphetamine. Daughter report she took care of her mother only, no other people contacted with her mother. She state last time in pt's PCP office, her mother also was positive for methamphetamine. She can not explain why her mother is positive for methamphetamine. - ALLERGIES Allergies/Adverse Reactions: Allergies Allergy/AdvReac Type Severity Reaction Status Date / Time Penicillins Allergy Severe Respiratory Verified 02/09/18 10:49 bacitracin Allergy Mild Hives Verified 02/09/18 10:49 [From Neosporin ([id number]-gpp-pjtbp)] bacitracin zinc * Allergy Mild Itching Verified 02/09/18 10:49 [From Neosporin (voj-srz-ginvh)] neomycin sulfate * Allergy Mild Itching Verified 02/09/18 10:49 [From Neosporin (new-eub-spnlw)] venom-honey bee Allergy Unknown Verified 02/09/18 10:49 [bee venom (honey bee)] ciprofloxacin AdvReac Emesis Verified 02/09/18 10:49 - MEDICATIONS Home Medications: Ambulatory Orders Medication Instructions Recorded Confirmed traZODone [Desyrel] 150 mg PO QPM 10/14/16 02/09/18 Carvedilol [Coreg] 6.25 mg PO BID tablet 10/15/16 02/09/18 Phenytoin [Dilantin] 400 mg PO QPM capsule 10/15/16 02/09/18 Chlorthalidone 50 mg PO DAILY 01/23/17 02/09/18 FLUoxetine [PROzac] 20 mg PO DAILY 01/23/17 02/09/18 amLODIPine [Norvasc] 10 mg PO DAILY 01/23/17 02/09/18 Loperamide HCl [Anti-Diarrheal] 4 mg PO PRN PRN 01/30/17 02/09/18 Gemfibrozil [Lopid] 600 mg PO BIDAC 02/09/18 02/09/18 Methocarbamol [Robaxin-750] 750 mg PO QID 02/09/18 02/09/18 Omeprazole [PriLOSEC] 20 mg PO BID PRN 02/09/18 02/09/18 Oxycodone HCl/Acetaminophen 1 tab PO Q4H PRN 02/09/18 02/09/18 [Oxycodone-Acetaminophen 5-325] Pregabalin [Lyrica] 100 mg PO TID 02/09/18 02/10/18 Prochlorperazine [Compazine] 8 mg PO QID 02/09/18 02/09/18 dimenhyDRINATE [Dimenhydrinate] 100 mg PO QID 02/09/18 02/09/18 diphenhydrAMINE [Benadryl] 50 mg PO QID 02/09/18 02/09/18 fentaNYL [Fentanyl 50mcg patch] 50 mcg TOP Q72H 02/09/18 02/09/18 levETIRAcetam [Keppra] 1,000 mg PO BID 02/09/18 02/09/18 Butalbit/Acetamin/Caff/Codeine 1 cap PO TID PRN 02/10/18 02/10/18 [Xlaqai-Ylco-Zhsizxsrsfm-Codein] Potassium Chloride 20 meq PO DAILY #7 tab.er.prt 02/10/18 Sulfamethox/Trimeth 800/160 1 tab PO BID #10 tablet 02/10/18 [Bactrim Ds] - PHYSICAL EXAM AT DISCHARGE General Appearance: positive: No acute distress, Alert. negative: Lethargic Eyes Bilateral: positive: Normal inspection, PERRL, No lid inflammation, Conjunctivae nml ENT: positive: ENT inspection nml, Pharynx nml, No signs of dehydration. negative: Purulent nasal drainage, Pharyngeal erythema, Oral lesions Neck: positive: Nml inspection, Thyroid nml, No JVD, Trachea midline. negative : Thyromegaly, Lymphadenopathy (R), Lymphadenopathy (L), Stiff neck, Swelling/ bruising, Tracheal deviation Respiratory: positive: Chest non-tender, No respiratory distress, Breath sounds nml. negative: Wheezes, Rales, Rhonchi Cardiovascular: positive: Regular rate & rhythm, No murmur, No gallop. negative : Irregularly irregular, Extrasystoles, Tachycardia, Bradycardia, JVD present, Systolic murmur, Diastolic murmur Peripheral Pulses: positive: 2+ Abdomen: positive: Non-tender, No organomegaly, Nml bowel sounds, No distention. negative: Tenderness, Guarding, Rebound Back: positive: Nml inspection. negative: CVA tenderness (R), CVA tenderness (L ) Skin: positive: Color nml, No rash, Warm, Dry. negative: Cyanosis, Diaphoresis , Pallor Extremities: positive: Non-tender, Full ROM, Other (left second finger cellulitis became very mild erythema. WBC became normal. bactrim is prescribed for pt to home). negative: Calf tenderness, Joint swelling, Malinda's sign/cords Neurologic/Psychiatric: positive: Motor nml, Sensation nml, Mood/affect nml. negative: Weakness, Sensory loss, Facial droop, Slurred/abnml speech, Depressed mood/affect - LABS Result Diagrams: 02/10/18 06:18 02/10/18 06:18 - FOLLOW UP Follow Up: you may follow up your PCP in 2-3 days. Should your symptoms return or worsen, you may present ER or call 911 for help. - TIME SPENT Time Spent in Discharge (Minutes): 45
[2018-02-11] MEDS ORDERED: ASPIRIN EC 81 MG TABLET PO SCH (08:00)
--- NOTE | 2018-02-11 13:55 | MRI Report ---
Procedure Date: 02/10/2018 Accession Number: [id number] / [id number] Procedure: MRI - Brain W/O CPT Code: FULL RESULT: EXAM: MRI BRAIN WITHOUT CONTRAST. EXAM DATE: 02/10/2018 11:05 AM. CLINICAL HISTORY: Confusion, stroke-like symptoms. Dysphagia. COMPARISON: CT scan and CT angiogram of the head 02/09/2018. MRI of the brain 01/30/2017. TECHNIQUE: Multiplanar, multisequence T1-weighted and fluid-sensitive MR sequences of the brain were performed. Sequences optimized for routine evaluation. Other: None. IV Contrast: None. FINDINGS: (Study is somewhat limited by motion artifact). Brain Volume: Normal for age. Parenchyma/Dura: No mass, acute infarct or hemorrhage. No significant brandt matter or white matter signal abnormality is appreciated. Ventricles/Cisterns: No hydrocephalus. No abnormal extra-axial fluid collection or hemorrhage. Orbits: Symmetric and unremarkable. Sella Turcica: The pituitary gland, cavernous sinuses, suprasellar cistern and optic chiasm are unremarkable. IAC: Symmetric and unremarkable. Vasculature: Normal signal flow void is seen in the major arterial structures at the skull base. Sinuses: No acute appearing sinus disease. Moderate nasal septal deviation is seen convex to the right. Mucosal thickening is seen involving inferior right mastoid air cells. Bones: No focal pathologic appearing marrow signal changes. Note is made of hyperostosis frontalis interna. Other: None. IMPRESSION: 1. Negative noncontrast MRI of the brain. No acute abnormality. No acute infarct, mass, or hemorrhage. RADIA
== END 2018-02-10 17:24 | disposition home or self-care (01) ==
LOC: EDUNIT# → ED 10:25 → OBS 16:28
PROVIDERS: ADMIT Nurse Practitioner Gerontology; ATTEND Nurse Practitioner Gerontology
DX: R47.01 Aphasia (principal); E87.6 Hypokalemia; L03.011 Cellulitis of right finger; E86.0 Dehydration; I10 Essential (primary) hypertension; G40.909 Epilepsy, unspecified, not intractable, without status epilepticus; E87.1 Hypo-osmolality and hyponatremia; E03.9 Hypothyroidism, unspecified; M32.9 Systemic lupus erythematosus, unspecified; G89.29 Other chronic pain; M54.9 Dorsalgia, unspecified; M19.90 Unspecified osteoarthritis, unspecified site; L40.9 Psoriasis, unspecified; R53.83 Other fatigue; R29.704 NIHSS score 4; K21.9 Gastro-esophageal reflux disease without esophagitis; E78.00 Pure hypercholesterolemia, unspecified; R35.1 Nocturia; R35.0 Frequency of micturition; F32.9 Major depressive disorder, single episode, unspecified; F11.20 Opioid dependence, uncomplicated; N28.9 Disorder of kidney and ureter, unspecified; Z66 Do not resuscitate; R78.5 Finding of other psychotropic drug in blood; Z92.21 Personal history of antineoplastic chemotherapy; Z85.43 Personal history of malignant neoplasm of ovary; Z90.710 Acquired absence of both cervix and uterus; Z90.722 Acquired absence of ovaries, bilateral; Z79.899 Other long term (current) drug therapy; Z92.3 Personal history of irradiation; Z87.11 Personal history of peptic ulcer disease; Z87.01 Personal history of pneumonia (recurrent); Z96.649 Presence of unspecified artificial hip joint; Z86.19 Personal history of other infectious and parasitic diseases; Z87.891 Personal history of nicotine dependence; Z86.69 Personal history of other diseases of the nervous system and sense organs
CPT/HCPCS: 36415; 70496; 70498; 70551; 71046; 80053; 80061; 80177; 80185; 80306; 81001; 83690; 83735; 84443; 84484; 85025; 87040; 87640; 93306; 96360; 96361; 96372; 99284; 99285; A9270; G0378; G0480; J1650; Q9967; 80320; 81003; 83721; 87086

== ENCOUNTER 2018-03-15 22:46 | Observation (INO) | payer MEDICARE, MEDICAID ==
[2018-03-16] MEDS ORDERED: SODIUM CHLORIDE 0.9% 1,000 ML IV ONE (00:50)
--- NOTE | 2018-03-16 00:54 | ED Physician Documentation ---
PD HPI NVD - Stated complaint Stated Complaint: VOMITING - Chief complaint Chief Complaint: Abd Pain - History obtained from History obtained from: Patient, Family - History of Present Illness Timing - onset: How many days ago (2) Timing - duration: Days (2) Timing - details: Gradual onset, Still present Associated symptoms: Abdominal pain, Near syncope / syncope, Loss of appetite Contributing factors: Other (has had headache and speech difficulty last week and subsequently developed nausea and vomiting and has not been able to keep her siezure medications down for 2 days.) Improved by: Vomiting Similar symptoms before: Diagnosis (complicated migraine) Recently seen: Admitted - Additonal information Additional information: 53 y/o female with a complicated past medical history including ovarian cancer ( 1995), lupus, psoriasis, stomach ulcers, hypertension, hypothyroidism, recurrent osteomyelitis, migraines, depression, fibromyalgia, dyslipidemia, asthma, CKD, nephrolithiasis, osteoarthritis, CVA, seizure disorder and chronic pain. She has had admission for profound dehydration 2 times this year and these episodes were associated with a difficulty in speaking and headache with vomiting and she has been diagnosed with complicated migraine with stroke like symptoms. She has recovered from these episodes with hydration and she has had a problem with low K+ as well. Over the past 2 days she has developed vomiting and she has not been able to keep her seizure medications down. Review of Systems Constitutional: reports: Fatigue. denies: Fever Eyes: denies: Decreased vision Ears: denies: Ear pain Nose: denies: Rhinorrhea / runny nose, Congestion Throat: denies: Sore throat Cardiac: denies: Chest pain / pressure Respiratory: denies: Dyspnea, Cough GI: reports: Nausea, Vomiting. denies: Abdominal Pain : denies: Dysuria, Frequency Skin: denies: Rash Musculoskeletal: reports: Back pain, Extremity pain. denies: Neck pain Neurologic: reports: Generalized weakness. denies: Focal weakness, Numbness, Syncope, Seizure PD PAST MEDICAL HISTORY - Past Medical History Past Medical History: Yes Cardiovascular: Hypertension, High cholesterol Respiratory: Asthma, Pneumonia Neuro: Seizure disorder Endocrine/Autoimmune: HyPOthyroidism, Systemic lupus erythematosus GI: GERD, Ulcers, C.difficile HAND LENS POLISHER: Ovarian cancer : Renal insuffiency, Nocturia, Frequency, Kidney stones HEENT: None Psych: Depression, Other Musculoskeletal: Osteoarthritis, Fatigue, Chronic back pain Derm: Other drug resistant infections, Psoriasis - Past Surgical History Past Surgical History: Yes General: Cholecystectomy, Appendectomy Ortho: Hip replacement, Spine surgery /HAND LENS POLISHER: 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, Oophrectomy - Present Medications Home Medications: Ambulatory Orders Medication Instructions Recorded Confirmed traZODone [Desyrel] 150 mg PO QPM 10/14/16 03/15/18 Carvedilol [Coreg] 6.25 mg PO BID tablet 10/15/16 03/15/18 Phenytoin [Dilantin] 400 mg PO QPM capsule 10/15/16 03/15/18 Chlorthalidone 50 mg PO DAILY 01/23/17 03/15/18 FLUoxetine [PROzac] 20 mg PO DAILY 01/23/17 03/15/18 amLODIPine [Norvasc] 10 mg PO DAILY 01/23/17 03/15/18 Loperamide HCl [Anti-Diarrheal] 4 mg PO PRN PRN 01/30/17 03/15/18 Gemfibrozil [Lopid] 600 mg PO BIDAC 02/09/18 03/15/18 Methocarbamol [Robaxin-750] 750 mg PO QID 02/09/18 03/15/18 Omeprazole [PriLOSEC] 20 mg PO BID PRN 02/09/18 03/15/18 Oxycodone HCl/Acetaminophen 1 tab PO Q4H PRN 02/09/18 03/15/18 [Oxycodone-Acetaminophen 5-325] Pregabalin [Lyrica] 100 mg PO TID 02/09/18 03/15/18 Prochlorperazine [Compazine] 8 mg PO QID 02/09/18 03/15/18 dimenhyDRINATE [Dimenhydrinate] 100 mg PO QID 02/09/18 03/15/18 diphenhydrAMINE [Benadryl] 50 mg PO QID 02/09/18 03/15/18 fentaNYL [Fentanyl 50mcg patch] 50 mcg TOP Q72H 02/09/18 03/15/18 levETIRAcetam [Keppra] 1,000 mg PO BID 02/09/18 03/15/18 Butalbit/Acetamin/Caff/Codeine 1 cap PO TID PRN 02/10/18 03/15/18 [Qnhqma-Aarp-Igqctnukelb-Codein] Potassium Chloride 20 meq PO DAILY #7 tab.er.prt 02/10/18 03/15/18 Sulfamethox/Trimeth 800/160 1 tab PO BID #10 tablet 02/10/18 03/15/18 [Bactrim Ds] - Allergies Allergies/Adverse Reactions: Allergies Allergy/AdvReac Type Severity Reaction Status Date / Time Penicillins Allergy Severe Respiratory Verified 03/15/18 23:10 bacitracin Allergy Mild Hives Verified 03/15/18 23:10 [From Neosporin ([id number])] bacitracin zinc * Allergy Mild Itching Verified 03/15/18 23:10 [From Neosporin ([id number])] neomycin sulfate * Allergy Mild Itching Verified 03/15/18 23:10 [From Neosporin ([id number])] venom-honey bee Allergy Unknown Verified 03/15/18 23:10 [bee venom (honey bee)] ciprofloxacin AdvReac Emesis Verified 03/15/18 23:10 - Social History Does the pt smoke?: No Smoking Status: Never smoker Does the pt drink ETOH?: No Does the pt have substance abuse?: No - Immunizations Immunizations are current?: Yes - POLST Patient has POLST: Yes POLST Status: DNR PD ED PE NORMAL - Vitals Vital signs reviewed: Yes (tachy and hypertensive) - General General: Alert and oriented X 3, No acute distress, Well developed/nourished - HEENT HEENT: Atraumatic, PERRL, EOMI, Other (mucous membranes are dry) - Neck Neck: Supple, no meningeal sign - Cardiac Cardiac: No murmur, Other (tachy ) - Respiratory Respiratory: No respiratory distress - Abdomen Abdomen: Soft, Non tender - Back Back: No CVA TTP, No spinal TTP - Derm Derm: Normal color, Warm and dry, No rash - Extremities Extremities: No deformity, No edema - Neuro Neuro: Alert and oriented X 3, lace finisher 2-12 intact, No motor deficit, No sensory deficit Eye Opening: Spontaneous Motor: Obeys Commands Verbal: Oriented GCS Score: 15 - Psych Psych: Normal mood, Normal affect Results - Vitals Vitals: Vital Signs - 24 hr 03/15/18 03/16/18 03/16/18 23:05 01:35 02:04 Temperature 36.3 C L Heart Rate 129 H 99 90 Respiratory 20 16 14 Rate Blood Pressure 145/98 H 161/105 H 182/100 H O2 Saturation 95 99 99 Oxygen O2 Source Room air - Labs Labs: Laboratory Tests 03/16/18 03/16/18 03/16/18 00:50 01:00 01:00 WBC 9.4 RBC 5.71 H Hgb 16.2 H Hct 47.0 MCV 82.3 MCH 28.4 MCHC 34.5 RDW 14.8 Plt Count 510 H MPV 9.3 Neut # (Auto) 7.6 H Lymph # (Auto) 1.0 L [place] # (Auto) 0.7 Eos # (Auto) 0.0 Baso # (Auto) 0.1 Absolute Nucleated RBC 0.01 Nucleated RBC % 0.1 Sodium 135 Potassium 1.9 L* Chloride 93 L Carbon Dioxide 23 Anion Gap 19.0 H BUN 15 Creatinine 0.9 Estimated GFR (MDRD) 65 L Glucose 164 H Calcium 10.2 Total Bilirubin 0.8 AST 22 ALT 12 Alkaline Phosphatase 119 Total Protein 8.4 H Albumin 5.2 Globulin 3.2 Albumin/Globulin Ratio 1.6 Lipase 30 Urine Color BROWN Urine Clarity HAZY Urine pH 6.5 Ur Specific Devol 1.025 Urine Protein >=300 H Urine Glucose (UA) NEGATIVE Urine Ketones 15 H Urine Occult Blood LARGE H Urine Nitrite POSITIVE H Urine Bilirubin NEGATIVE Urine Urobilinogen 0.2 (NORMAL) Ur Leukocyte Esterase NEGATIVE Urine RBC 6-10 H Urine WBC 4-5 Ur Squamous Epith Cells MOD Squamous H Urine Bacteria None Seen Urine Casts 0-2 Cellular Casts Urine Mucus Moderate Strands Urine Yeast PRESENT Ur Microscopic Review INDICATED Urine Culture Comments NOT INDICATED Phenytoin < 2.5 Procedures - IVC sono (time) 2353 Bedside IVC sono: IVC measures (cm) (0.63), IVC collapsed c insp (cm) (complete) , Profound dehydration PD MEDICAL DECISION MAKING - ED course Complexity details: reviewed old records, reviewed results, re-evaluated patient , considered differential, d/w patient, d/w family ED course: 53-year-old female with a comp gated past medical history presents tonight with vomiting 2 days has not been able to hold down her antiseizure medications and she is profoundly dehydrated. She is also hypokalemic with a potassium of 1.9. She is administered intravenous saline and potassium. She will require hydration and potassium as well as her medications for safe discharge. I have asked Dr. Kathleen Singh to admit the patient the hospital for care. - Sepsis Event Vital Signs: Vital Signs - 24 hr 03/15/18 03/16/18 03/16/18 23:05 01:35 02:04 Temperature 36.3 C L Heart Rate 129 H 99 90 Respiratory 20 16 14 Rate Blood Pressure 145/98 H 161/105 H 182/100 H O2 Saturation 95 99 99 Oxygen O2 Source Room air Departure - Departure Disposition: [facility] DC/Xfer Clinical Impression: Dehydration, Hypokalemia Condition: Fair
[2018-03-16 00:56] LABS: GLUCOSE, URINE (UA) NEGATIVE (NEGATIVE); KETONES,URINE (UA) 15 mg/dL (NEGATIVE); LEUKOCYTE ESTERASE, URINE NEGATIVE (NEGATIVE); NITRITE,URINE POSITIVE (NEGATIVE); OCCULT BLOOD,URINE LARGE (NEGATIVE); PH,URINE 6.5 PH (5.0-7.5); PROTEIN,URINE >=300 mg/dL (NEGATIVE); UROBILINOGEN,URINE 0.2 (NORMAL) E.U./dL (NORMAL)
[2018-03-16] MEDS ORDERED: ONDANSETRON 4 MG/2 ML VIAL IVP STA ×2 (01:05→04:37)
[2018-03-16 01:15] LABS: BACTERIA,URINE None Seen /HPF (None Seen); BILIRUBIN,URINE NEGATIVE (NEGATIVE); CLARITY,URINE HAZY (CLEAR); ICTOTEST,URINE NEGATIVE; MUCUS,URINE Moderate Strands; SQUAMOUS EPITHELIAL CELL,UR MOD Squamous (<= Few)
[2018-03-16 01:16] LABS: YEAST,URINE PRESENT
[2018-03-16] MEDS ORDERED: HYDROmorphone 1 MG/ML CARPUJECT IVP STA ×2 (01:29→02:06)
[2018-03-16 01:56] LABS: BASOPHILS # (AUTO) 0.1 10^3/uL (0.0-0.1); BASOPHILS % (AUTO) 0.6 %; HGB - HEMOGLOBIN 16.2 g/dL (12.0-16.0); MEAN CORPUSCULAR HEMOGLOBIN 28.4 pg (27.0-31.0); MEAN CORPUSCULAR HGB CONC 34.5 g/dL (32.0-36.0); MEAN CORPUSCULAR VOLUME 82.3 fL (81.0-99.0); MEAN PLATELET VOLUME 9.3 fL (7.9-10.8); MONOCYTES # (AUTO) 0.7 10^3/uL (0.0-1.0); NEUTROPHILS # (AUTO) 7.6 10^3/uL (1.5-6.6); NEUTROPHILS % (AUTO) 81.4 %; PLT - PLATELET COUNT 510 10^3/uL (130-450); RED BLOOD COUNT 5.71 10^6/uL (4.20-5.40); RED CELL DISTRIBUTION WIDTH 14.8 % (12.0-15.0); WHITE BLOOD COUNT 9.4 x10^3/uL (4.8-10.8)
[2018-03-16 02:00] LABS: ALBUMIN 5.2 g/dL (3.2-5.5); ALBUMIN/GLOBULIN RATIO 1.6 (1.0-2.2); ALKALINE PHOSPHATASE 119 IU/L (42-121); ALT ALANINE AMINOTRANSFERASE 12 IU/L (10-60); AST ASPARTATE AMINOTRANSFERASE 22 IU/L (10-42); BILIRUBIN,TOTAL 0.8 mg/dL (0.2-1.0); BUN - BLOOD UREA NITROGEN 15 mg/dL (6-20); CALCIUM 10.2 mg/dL (8.5-10.3); CARBON DIOXIDE - CO2 23 mmol/L (21-32); CHLORIDE 93 mmol/L (101-111); CREATININE 0.9 mg/dL (0.4-1.0); GFR - MDRD 65 (>89); GLUCOSE 164 mg/dL (70-100); LIPASE 30 U/L (22-51); PHENYTOIN (DILANTIN) < 2.5 ug/mL; SODIUM 135 mmol/L (135-145); TOTAL PROTEIN 8.4 g/dL (6.7-8.2)
[2018-03-16] MEDS ORDERED: PHENYTOIN 100 MG/2 ML VIAL IVP STA (02:16)
[2018-03-16] MEDS: POTASSIUM CHLOR 20 MEQ/100 ML 20 MEQ/100 ML BAG IV SCH ×2 (02:23→05:06)
[2018-03-16] MEDS ORDERED: IBUPROFEN 600 MG TABLET PO PRN (03:55)
[2018-03-16] MEDS ORDERED: TEMAZEPAM 15 MG CAPSULE PO PRN (03:55)
[2018-03-16] MEDS ORDERED: ONDANSETRON 4 MG/2 ML VIAL IVP PRN (03:55)
--- NOTE | 2018-03-16 03:59 | HISTORY & PHYSICAL EXAMINATION ---
Chief Complaint - Chief Complaint Chief Complaint: Intractable nausea and vomiting, weakness History of Present Illness - Admitted From Admitted From:: Home - History Obtained From History obtained from: Patient, daughter, ED physician - History of Present Illness HPI Comment/Other: Ms. Lulú Centeno is a very pleasant 53-year-old female who has a past medical history significant for chronic back pain, fibromyalgia, ovarian cancer , lupus, psoriasis, gastric ulcers, hypertension, hypothyroidism, recurrent osteomyelitis, migraine headaches, depression, dyslipidemia, asthma, chronic kidney disease, nephrolithiasis, osteoarthritis, CVA, and seizure disorder. She was brought in to the emergency room after 2 days of intractable nausea and vomiting with increasing weakness. The patient has had multiple episodes of this in the past; the last time was in October 2017 when she was admitted with a potassium of 2.0 following several days of nausea and vomiting. She presents today to the emergency room, again dehydrated with a potassium of 1.9. She is otherwise better than she had been on her previous visit and is relatively asymptomatic with the exception of the nausea and vomiting which has been controlled here in the emergency department. She will be admitted to an observation bed and we will correct her hydration status and her electrolyte imbalances. 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: Ovarian cancer : reports: Renal insuffiency, Nocturia, Frequency, Kidney stones HEENT: reports: None Psych: reports: Depression, Other Musculoskeletal: reports: Osteoarthritis, Fatigue, Chronic back pain Derm: reports: Other drug resistant infections, Psoriasis MRSA Hx?: Yes - Past Surgical History General: reports: Cholecystectomy, Appendectomy Ortho: reports: Hip replacement, Spine surgery /COMPUTER HELP DESK REPRESENTATIVE: reports: 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, Oophrectomy - Family & Social History Family History: Mother: Alive and Well, Father: , CAD Family History Comment/Other: Mother is alive and well, with Lupus. Father from heart disease. The patient is an only child. Living arrangement: At home Living Situation: With family Social History Notes: The patient has one daughter and her first when her daughter was 2 years old. The patient is legally from her 2nd . She is living with her daughter and her daughter's boyfriend in [place]. There are 2 dogs in the home, and the patient has one cat named Andrew. She no longer drives. 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 She was using a walker and and has been nonweightbearing on the left side since her surgeries. She can perform all of her daily ADLs, but very little house work. She denies ETOH, tobacco, or illicit drug use. She wishes to be a DNR. - Substance History Use: Uses substance without health or social issues: Opioid - POLST Patient has POLST: Yes POLST Status: DNR Meds/Allgy - Home Medications Home Medications: Ambulatory Orders Medication Instructions Recorded Confirmed traZODone [Desyrel] 150 mg PO QPM 10/14/16 03/15/18 Carvedilol [Coreg] 6.25 mg PO BID tablet 10/15/16 03/15/18 Phenytoin [Dilantin] 400 mg PO QPM capsule 10/15/16 03/15/18 Chlorthalidone 50 mg PO DAILY 01/23/17 03/15/18 FLUoxetine [PROzac] 20 mg PO DAILY 01/23/17 03/15/18 amLODIPine [Norvasc] 10 mg PO DAILY 01/23/17 03/15/18 Loperamide HCl [Anti-Diarrheal] 4 mg PO PRN PRN 01/30/17 03/15/18 Gemfibrozil [Lopid] 600 mg PO BIDAC 02/09/18 03/15/18 Methocarbamol [Robaxin-750] 750 mg PO QID 02/09/18 03/15/18 Omeprazole [PriLOSEC] 20 mg PO BID PRN 02/09/18 03/15/18 Oxycodone HCl/Acetaminophen 1 tab PO Q4H PRN 02/09/18 03/15/18 [Oxycodone-Acetaminophen 5-325] Pregabalin [Lyrica] 100 mg PO TID 02/09/18 03/15/18 Prochlorperazine [Compazine] 8 mg PO QID 02/09/18 03/15/18 dimenhyDRINATE [Dimenhydrinate] 100 mg PO QID 02/09/18 03/15/18 diphenhydrAMINE [Benadryl] 50 mg PO QID 02/09/18 03/15/18 fentaNYL [Fentanyl 50mcg patch] 50 mcg TOP Q72H 02/09/18 03/15/18 levETIRAcetam [Keppra] 1,000 mg PO BID 02/09/18 03/15/18 Butalbit/Acetamin/Caff/Codeine 1 cap PO TID PRN 02/10/18 03/15/18 [Rnsdtz-Pohe-Prqzltkgqgn-Codein] Potassium Chloride 20 meq PO DAILY #7 tab.er.prt 02/10/18 03/15/18 Sulfamethox/Trimeth 800/160 1 tab PO BID #10 tablet 02/10/18 03/15/18 [Bactrim Ds] - Allergies Allergies/Adverse Reactions: Allergies Allergy/AdvReac Type Severity Reaction Status Date / Time Penicillins Allergy Severe Respiratory Verified 03/15/18 23:10 bacitracin Allergy Mild Hives Verified 03/15/18 23:10 [From Neosporin ([id number])] bacitracin zinc * Allergy Mild Itching Verified 03/15/18 23:10 [From Neosporin ([id number])] neomycin sulfate * Allergy Mild Itching Verified 03/15/18 23:10 [From Neosporin ([id number])] venom-honey bee Allergy Unknown Verified 03/15/18 23:10 [bee venom (honey bee)] ciprofloxacin AdvReac Emesis Verified 03/15/18 23:10 Review of Systems - Constitutional Constitutional: reports: Fatigue, Weakness, Poor appetite. denies: Fever, Chills, Night sweats - Eyes Eyes: denies: Pain, Irritation, Amaurosis, Blurred vision, Dipolpia - Ears, Nose & Throat Ears, Nose & Throat: denies: Ear pain, Hearing loss, Hearing aids, Tinnitus, Vertigo, Nasal pain, Nasal discharge - Cardiovascular Cariovascular: denies: Palpitations, Chest pain, Edema, Syncope - Respiratory Respiratory: denies: Cough, Sputum production, Wheezing, Snoring, Hemoptysis, SOB at rest - Gastrointestinal Gastrointestinal: reports: Nausea, Vomiting. denies: Abdominal pain, Abdominal distention, Constipation, Diarrhea, Change in bowel habits, Rectal bleeding, Bile emesis, Galen blood emesis, Coffee grounds emesis - Genitourinary Genitourinary: denies: Dysuria, Frequency, Urgency, Hematuria - Musculoskeletal Musculoskeletal: denies: Muscle pain, Back pain, Muscle aches, Stiffness - Integumentary Integumentary: denies: Rash, Pruritis, Lesions, Dryness - Neurological Neurological: denies: General weakness, Focal weakness, Headache, Dizziness - Psychiatric Psychiatric: denies: Depression, Anxiety, Suicidal, Hallucinations - Endocrine Endocrine: denies: Polyuria, Polydypsia, Polyphagia - Hematologic/Lymphatic Hematologic/Lymphatic: denies: Anemia, Bruising, Petechiae, Lymphadenopathy - All Other Systems All Other Systems: reports: Reviewed and negative Exam - Vital Signs Reviewed Vital Signs: Yes Vital Signs: Vital Signs x48h Temp Pulse Resp BP Pulse Ox 03/16/18 03:37 85 18 175/95 H 99 03/16/18 02:04 90 14 182/100 H 99 03/16/18 01:35 99 16 161/105 H 99 03/15/18 23:05 36.3 C L 129 H 20 145/98 H 95 - Physical Exam General Appearance: positive: No acute distress, Alert Eyes Bilateral: positive: Normal inspection, PERRL, EOMI, No lid inflammation, Conjunctivae nml, No scleral icterus ENT: positive: ENT inspection nml, Pharynx nml, No signs of dehydration Neck: positive: Nml inspection, Thyroid nml, No JVD, Trachea midline. negative : Thyromegaly Respiratory: positive: Chest non-tender, No respiratory distress, Breath sounds nml. negative: Wheezes, Rales, Rhonchi Cardiovascular: positive: Regular rate & rhythm, No murmur, No gallop Peripheral Pulses: positive: 1+ Abdomen: positive: Non-tender, No organomegaly, Nml bowel sounds, No distention. negative: Guarding, Rebound Back: positive: Nml inspection. negative: CVA tenderness (R), CVA tenderness (L ) Skin: positive: Color nml, No rash, Warm, Dry. negative: Cyanosis Extremities: positive: Non-tender, Full ROM, Nml appearance, No pedal edema Neurologic/Psychiatric: positive: Oriented x3, CN's nml (2-12), Motor nml, Sensation nml, Mood/affect nml Conclusion/Plan - Problem List (1) Intractable nausea and vomiting Conclusion/Plan: I am unsure as to the cause of this. This is something that has occurred in the past and has lasted for days previously. The patient may be experiencing gastroparesis due to her extensive opioid and muscle relaxant usage. She has significant polypharmacy due to her chronic back pain and this should be reduced to 1 or 2 agents if possible. We will treat her with Zofran, IV fluids, and correct her electrolyte abnormalities. Qualifiers: Vomiting type: unspecified Qualified Code(s): R11.2 - Nausea with vomiting , unspecified (2) Hypokalemia Conclusion/Plan: The patient has a history of hypokalemia and was discharged home on 20 mEq of potassium daily, which she says she has been taking as ordered. Although she has had intractable nausea and vomiting for 2 days, I doubt that the patient has dropped from a normal potassium level to 1.9 due to vomiting for 2 days. We will correct her electrolyte abnormalities and recommend that she follow up with her primary care physician every 2-3 weeks to check her potassium levels as an outpatient. (3) Chronic pain syndrome Conclusion/Plan: The patient is currently taking multiple agents for her chronic back pain including fentanyl, oxycodone, methocarbamol, and Lyrica. I suspect that this polypharmacy is causing hyperalgesia and recommend that the patient be switched over to one agent for control of neuropathic pain such as methadone. (4) Dehydration Conclusion/Plan: The patient's IVC was measured in the ED the patient was seen to be dehydrated by about 2 L of fluid. We will gently rehydrate her and monitor her electrolytes as we do so. (5) Hypertension Conclusion/Plan: Despite being dehydrated the patient has been hypertensive since she has been admitted. She currently takes Norvasc, Coreg, and chlorthalidone For her blood pressure. I will restart her on these and add a as needed clonidine dosage. (6) Seizure disorder Conclusion/Plan: The patient has a history of seizure disorder and says she has had about 4 or 5 seizures since the beginning of this year. She currently takes Dilantin and Keppra. We will recheck the levels of these medications and make sure that she is at therapeutic levels. - Lab Results Lab results reviewed: Yes Fish Bones: 03/16/18 01:00 03/16/18 01:00 Core Measures - Anticipated LOS I expect patient to be DC'd or transferred within 96 hours.: Yes - DVT/VTE - Prophylaxis VTE/DVT Device ordered at admit?: Yes
[2018-03-16] MEDS ORDERED: LOPERAMIDE 2 MG CAPSULE PO PRN (04:03)
[2018-03-16] MEDS ORDERED: cloNIDine 0.1 MG TABLET PO PRN (04:12)
[2018-03-16] MEDS ORDERED: SODIUM CHLORIDE 0.9% 500 ML IV PRN (04:52)
[2018-03-16] MEDS ORDERED: fentaNYL 50 MCG PATCH TOP SCH (05:00)
[2018-03-16] MEDS ORDERED: POTASSIUM CHLOR 20 MEQ/100 ML 20 MEQ/100 ML BAG IV SCH (05:00)
[2018-03-16] MEDS: PANTOPRAZOLE 40 MG VIAL IVP SCH ×2 (07:02→17:22)
[2018-03-16] MEDS: SODIUM CHLORIDE FLUSH 0.9% 10 ML SYRINGE IVP PRN ×2 (07:02→17:23)
[2018-03-16] MEDS: ONDANSETRON 4 MG/2 ML VIAL IVP PRN ×3 (08:03→17:22)
[2018-03-16] MEDS ORDERED: oxyCODONE 5 MG TABLET PO PRN (08:16)
[2018-03-16] MEDS ORDERED: POTASSIUM CHLORIDE INJ 40 MEQ in SODIUM CHLORIDE 0.9% 480 ML IV ONE (08:30)
[2018-03-16] MEDS: oxyCOD/ACETAMIN 5 MG/325 MG TABLET PO PRN ×3 (08:34→17:23)
[2018-03-16] MEDS: SODIUM CHLORIDE FLUSH 0.9% 10 ML SYRINGE IVP SCH ×2 (08:43→17:23)
[2018-03-16] MEDS ORDERED: amLODIPine 5 MG TABLET PO SCH (09:00)
[2018-03-16] MEDS: FLUoxetine 10 MG CAPSULE PO SCH (09:09)
[2018-03-16] MEDS: POTASSIUM CHLORIDE 20 MEQ TABLET PO SCH ×3 (09:09→17:23)
[2018-03-16] MEDS: PREGABALIN 100 MG CAPSULE PO SCH ×3 (09:09→21:01)
[2018-03-16] MEDS: CARVEDILOL 3.125 MG TABLET PO SCH ×2 (09:09→21:01)
[2018-03-16] MEDS: levETIRAcetam 250 MG TABLET PO SCH ×2 (09:09→21:01)
[2018-03-16] MEDS: POLYETHYLENE GLYCOL 3350 17 GM PACKET PO SCH (09:10)
[2018-03-16] MEDS: NS W/20 MEQ KCL 1,000 ML IV SCH ×2 (10:35→17:52)
[2018-03-16] MEDS ORDERED: POTASSIUM CHLOR 10 MEQ/100 ML 10 MEQ/100 ML BAG IV SCH (12:30)
[2018-03-16 12:32] LABS: MEAN CORPUSCULAR HEMOGLOBIN 29.1 pg (27.0-31.0); MEAN CORPUSCULAR HGB CONC 34.5 g/dL (32.0-36.0); MEAN CORPUSCULAR VOLUME 84.4 fL (81.0-99.0); MEAN PLATELET VOLUME 8.3 fL (7.9-10.8); RED BLOOD COUNT 4.47 10^6/uL (4.20-5.40); RED CELL DISTRIBUTION WIDTH 14.3 % (12.0-15.0); WHITE BLOOD COUNT 10.4 x10^3/uL (4.8-10.8)
[2018-03-16 13:19] LABS: CALCIUM 8.8 mg/dL (8.5-10.3); CREATININE 0.7 mg/dL (0.4-1.0)
[2018-03-16] MEDS ORDERED: traZODone 50 MG TABLET PO SCH (21:00)
[2018-03-16] MEDS ORDERED: PHENYTOIN ER 100 MG CAPSULE PO SCH (21:00)
[2018-03-16] MEDS ORDERED: oxyCODONE 5 MG TABLET ONE (22:16)
[2018-03-16 23:57] LABS: BILIRUBIN,URINE NEGATIVE (NEGATIVE); CLARITY,URINE HAZY (CLEAR); GLUCOSE, URINE (UA) NEGATIVE (NEGATIVE); KETONES,URINE (UA) NEGATIVE (NEGATIVE); LEUKOCYTE ESTERASE, URINE SMALL (NEGATIVE); NITRITE,URINE NEGATIVE (NEGATIVE); OCCULT BLOOD,URINE MODERATE (NEGATIVE); PH,URINE 7.5 PH (5.0-7.5); PROTEIN,URINE NEGATIVE (NEGATIVE); UROBILINOGEN,URINE 0.2 (NORMAL) E.U./dL (NORMAL)
[2018-03-16 23:58] LABS: BACTERIA,URINE Moderate /HPF (None Seen); SQUAMOUS EPITHELIAL CELL,UR FEW Squamous (<= Few)
[2018-03-17] MEDS: SODIUM CHLORIDE FLUSH 0.9% 10 ML SYRINGE IVP SCH ×3 (00:04→16:04)
[2018-03-17] MEDS: cefTRIAXone 2 GM in SODIUM CHLORIDE 0.9% MINIBAG 100 ML IV SCH ×2 (00:38→09:16)
[2018-03-17] MEDS: oxyCOD/ACETAMIN 5 MG/325 MG TABLET PO PRN ×3 (00:53→16:04)
[2018-03-17] MEDS: NS W/20 MEQ KCL 1,000 ML IV SCH (02:09)
[2018-03-17 05:27] LABS: BASOPHILS % (AUTO) 0.2 %; EOSINOPHILS # (AUTO) 0.2 10^3/uL (0.0-0.7); EOSINOPHILS % (AUTO) 2.6 %; HGB - HEMOGLOBIN 11.4 g/dL (12.0-16.0); LYMPHOCYTES # (AUTO) 2.4 10^3/uL (1.5-3.5); LYMPHOCYTES % (AUTO) 27.9 %; MEAN CORPUSCULAR HEMOGLOBIN 29.4 pg (27.0-31.0); MEAN CORPUSCULAR HGB CONC 34.6 g/dL (32.0-36.0); MEAN PLATELET VOLUME 8.2 fL (7.9-10.8); MONOCYTES # (AUTO) 0.6 10^3/uL (0.0-1.0); MONOCYTES % (AUTO) 7.5 %; NEUTROPHILS # (AUTO) 5.2 10^3/uL (1.5-6.6); NEUTROPHILS % (AUTO) 61.8 %; PLT - PLATELET COUNT 272 10^3/uL (130-450); RED BLOOD COUNT 3.89 10^6/uL (4.20-5.40); RED CELL DISTRIBUTION WIDTH 14.8 % (12.0-15.0); WHITE BLOOD COUNT 8.5 x10^3/uL (4.8-10.8)
[2018-03-17] MEDS: SODIUM CHLORIDE FLUSH 0.9% 10 ML SYRINGE IVP PRN (05:28)
[2018-03-17] MEDS: PREGABALIN 100 MG CAPSULE PO SCH ×2 (05:28→14:18)
[2018-03-17] MEDS: PANTOPRAZOLE 40 MG VIAL IVP SCH ×2 (05:28→16:04)
[2018-03-17] MEDS: PHENAZOPYRIDINE 100 MG TABLET PO SCH ×2 (05:28→14:18)
[2018-03-17 05:50] LABS: ALBUMIN 3.5 g/dL (3.2-5.5); ALBUMIN/GLOBULIN RATIO 1.6 (1.0-2.2); ALKALINE PHOSPHATASE 84 IU/L (42-121); ALT ALANINE AMINOTRANSFERASE 11 IU/L (10-60); AST ASPARTATE AMINOTRANSFERASE 22 IU/L (10-42); BILIRUBIN,TOTAL 0.2 mg/dL (0.2-1.0); BUN - BLOOD UREA NITROGEN 6 mg/dL (6-20); CALCIUM 8.1 mg/dL (8.5-10.3); CARBON DIOXIDE - CO2 24 mmol/L (21-32); CHLORIDE 109 mmol/L (101-111); CREATININE 0.6 mg/dL (0.4-1.0); GFR - MDRD 105 (>89); GLUCOSE 122 mg/dL (70-100); MAGNESIUM 1.4 mg/dL (1.7-2.8); SODIUM 139 mmol/L (135-145); TOTAL PROTEIN 5.7 g/dL (6.7-8.2)
[2018-03-17 06:01] LABS: PHOSPHORUS < 1.0 mg/dL (2.5-4.6); VBG PH 7.35 (7.31-7.41)
[2018-03-17] MEDS ORDERED: MAGNESIUM SULFATE 2 GRAM 2 GM/50 ML BAG IV SCH (07:00)
[2018-03-17] MEDS ORDERED: POTASSIUM CHLORIDE INJ 40 MEQ in SODIUM CHLORIDE 0.9% 480 ML IV ONE (07:30)
[2018-03-17] MEDS ORDERED: POTASSIUM CHLORIDE INJ 40 MEQ in SODIUM CHLORIDE 0.9% 480 ML IV SCH (07:30)
[2018-03-17] MEDS ORDERED: amLODIPine 5 MG TABLET PO SCH ×2 (09:00→16:00)
[2018-03-17] MEDS: levETIRAcetam 250 MG TABLET PO SCH (09:14)
[2018-03-17] MEDS: POTASSIUM CHLORIDE 20 MEQ TABLET PO SCH ×3 (09:14→16:04)
[2018-03-17] MEDS: CARVEDILOL 3.125 MG TABLET PO SCH (09:15)
[2018-03-17] MEDS: FLUoxetine 10 MG CAPSULE PO SCH (09:15)
[2018-03-17] MEDS: POLYETHYLENE GLYCOL 3350 17 GM PACKET PO SCH (09:19)
[2018-03-17] MEDS ORDERED: POTASSIUM PHOSPHATE 21 MMOL in SODIUM CHLORIDE 0.9% 250 ML IV ONE (11:00)
[2018-03-17] MEDS ORDERED: ACETAMIN PO PRN (15:02)
[2018-03-17] MEDS ORDERED: ONDANSETRON ODT 4 MG TABLET TL PRN (15:02)
[2018-03-17] MEDS ORDERED: CODEINE PO PRN (15:02)
[2018-03-17] MEDS ORDERED: BUTALBIT PO PRN (15:02)
[2018-03-17] MEDS ORDERED: PROCHLORPERAZINE 5 MG TABLET PO PRN (15:02)
[2018-03-17] MEDS ORDERED: CAFF PO PRN (15:02)
[2018-03-17] MEDS ORDERED: METHOCARBAMOL 500 MG TABLET PO PRN (15:02)
[2018-03-17] MEDS ORDERED: [UNRECOGNIZED DRUG - OTHER] PO PRN (15:02)
--- NOTE | 2018-03-17 15:14 | DISCHARGE SUMMARY ---
Discharge Summary Admit Date: 03/16/18 Discharge Date: 03/17/18 Discharging Provider: IMELDA Linares Primary Care Provider: Shilpa Millard MD Code Status: Do Not Attempt Resuscitation Condition at Discharge: Fair Discharge Disposition: 01 Home, Self Care - DIAGNOSES Admission Diagnoses: Nausea with vomiting, unspecified (R11.2) Hypokalemia (E87.6) Chronic pain syndrome (G89.4) Dehydration (E86.0) Essential (primary) hypertension (I10) Epilepsy, unspecified, not intractable, without status epilepticus (G40.909) Discharge Diagnoses with Status of Each Condition: Urinary tract infection, site not specified (N39.0) new on this admission, treatment to continue. Nausea with vomiting, unspecified (R11.2) resolved. Hypokalemia (E87.6) improved, patient no longer has symptoms and moving in the right direction with the resolution of N/V/D. Chronic pain syndrome (G89.4) chronic, stable. Dehydration (E86.0) resolved. Essential (primary) hypertension (I10) chronic, stable. Epilepsy, unspecified, not intractable, without status epilepticus (G40.909) chronic, stable. - HPI History of Present Illness: HPI per Dr. Kathleen Ruiz: Ms. Lulú Centeno is a very pleasant 53-year-old female who has a past medical history significant for chronic back pain, fibromyalgia, ovarian cancer , lupus, psoriasis, gastric ulcers, hypertension, hypothyroidism, recurrent osteomyelitis, migraine headaches, depression, dyslipidemia, asthma, chronic kidney disease, nephrolithiasis, osteoarthritis, CVA, and seizure disorder. She was brought in to the emergency room after 2 days of intractable nausea and vomiting with increasing weakness. The patient has had multiple episodes of this in the past; the last time was in October 2017 when she was admitted with a potassium of 2.0 following several days of nausea and vomiting. She presents today to the emergency room, again dehydrated with a potassium of 1.9. She is otherwise better than she had been on her previous visit and is relatively asymptomatic with the exception of the nausea and vomiting which has been controlled here in the emergency department. She will be admitted to an observation bed and we will correct her hydration status and her electrolyte imbalances. - HOSPITAL COURSE Hospital Course: (1) Intractable nausea and vomiting I am unsure as to the cause of this. This is something that has occurred in the past and has lasted for days previously. The patient may be experiencing gastroparesis due to her extensive opioid and muscle relaxant usage. She has significant polypharmacy due to her chronic back pain and this should be reduced to 1 or 2 agents if possible. The patient was treated using IV Zofran, IV fluids, and given supplemental potassium, which was very effective. This was considered resolved upon discharge. (2) Hypokalemia The patient has a history of hypokalemia and was discharged home on 20 mEq of potassium daily, which she says she has been taking as ordered. Although she has had intractable nausea and vomiting for 2 days, it is unlikely that the patient has dropped from a normal potassium level to 1.9 due to vomiting for 2 days, so we recommend follow up labs later this week. (3) Chronic pain syndrome The patient is currently taking multiple agents for her chronic back pain including fentanyl, oxycodone, methocarbamol, and Lyrica. I suspect that this polypharmacy is causing hyperalgesia and recommend that the patient be switched over to one agent for control of neuropathic pain such as methadone. A referral was made from the patient's PCP to a pain clinic in [place] for a provider who may be willing to prescribe Methadone as this would be the very best treatment. (4) Dehydration The patient's IVC was measured in the ED the patient was seen to be dehydrated by about 2 L of fluid. The patient was given gentle IVFs and was had improved oral intake at the time of discharge. (5) Hypertension Despite being dehydrated the patient has been hypertensive since she has been admitted. She currently takes Norvasc, Coreg, and chlorthalidone at home for her blood pressure. These medications were continued. (6) Seizure disorder The patient has a history of seizure disorder and says she has had about 4 or 5 seizures since the beginning of this year. She currently takes Dilantin and Keppra. Serum lab levels showed therapeutic levels. She was continued on these medications. Disposition: The patient was in stable condition at the time of discharge and was anxious to get back home. She required no oxygen and was ambulatory back to her baseline. - ALLERGIES Allergies/Adverse Reactions: Allergies Allergy/AdvReac Type Severity Reaction Status Date / Time Penicillins Allergy Severe Respiratory Verified 03/15/18 23:10 bacitracin Allergy Mild Hives Verified 03/15/18 23:10 [From Neosporin ([id number])] bacitracin zinc * Allergy Mild Itching Verified 03/15/18 23:10 [From Neosporin (eoy-[id number]-[id number])] neomycin sulfate * Allergy Mild Itching Verified 03/15/18 23:10 [From Neosporin (pbv-tjj-arwso)] venom-honey bee Allergy Unknown Verified 03/15/18 23:10 [bee venom (honey bee)] ciprofloxacin AdvReac Emesis Verified 03/15/18 23:10 - MEDICATIONS Home Medications: Ambulatory Orders Medication Instructions Recorded Confirmed traZODone [Desyrel] 50 mg PO QPM 10/14/16 03/16/18 Carvedilol [Coreg] 6.25 mg PO BID tablet 10/15/16 03/16/18 Chlorthalidone 25 mg PO DAILY 01/23/17 03/16/18 amLODIPine [Norvasc] 10 mg PO DAILY 01/23/17 03/16/18 Gemfibrozil [Lopid] 600 mg PO BIDAC 02/09/18 03/16/18 Methocarbamol [Robaxin-750] 750 mg PO QID PRN 02/09/18 03/16/18 Omeprazole [PriLOSEC] 20 mg PO BID PRN 02/09/18 03/16/18 Oxycodone HCl/Acetaminophen 1 tab PO Q4H PRN 02/09/18 03/16/18 [Oxycodone-Acetaminophen 5-325] Pregabalin [Lyrica] 100 mg PO TID 02/09/18 03/16/18 Prochlorperazine [Compazine] 10 mg PO TID PRN 02/09/18 03/16/18 dimenhyDRINATE [Dimenhydrinate] 50 mg PO QID PRN 02/09/18 03/16/18 fentaNYL [Fentanyl 50mcg patch] 50 mcg TOP Q72H 02/09/18 03/16/18 levETIRAcetam [Keppra] 500 mg PO BID 02/09/18 03/16/18 Butalbit/Acetamin/Caff/Codeine 1 cap PO TID PRN 02/10/18 03/16/18 [Qpwywp-Kndb-Tjlzivtpgnd-Codein] Potassium Chloride 20 meq PO DAILY #7 tab.er.prt 02/10/18 03/16/18 Cholecalciferol (Vitamin D3) 4,000 unit PO DAILY 03/16/18 03/16/18 [Vitamin D3] Ondansetron Odt [Zofran Odt] 8 mg TL Q6H PRN 03/16/18 03/16/18 Phenytoin Sodium Extended 100 mg PO QPM 03/16/18 03/16/18 Phenazopyridine [Pyridium] 100 mg PO TID PRN #20 tablet 03/17/18 Potassium Chloride [K-Dur] 40 meq PO TIDWM 5 Days #30 tablet 03/17/18 Saccharomyces Boulardii [Florastor] 250 mg PO BID #28 capsule 03/17/18 Sulfamethox/Trimeth 800/160 1 each PO BID #14 tablet 03/17/18 [Bactrim Ds] - PHYSICAL EXAM AT DISCHARGE General Appearance: positive: No acute distress, Alert Eyes Bilateral: positive: Normal inspection, PERRL ENT: positive: ENT inspection nml, Pharynx nml, No signs of dehydration Neck: positive: Nml inspection, Thyroid nml, No JVD Respiratory: positive: Chest non-tender, No respiratory distress, Breath sounds nml Cardiovascular: positive: Regular rate & rhythm, No gallop, Systolic murmur Peripheral Pulses: positive: 2+ Abdomen: positive: Non-tender, Nml bowel sounds, Other (rounded, soft) Back: positive: Nml inspection Skin: positive: No rash, Warm, Dry Extremities: positive: Non-tender, Full ROM, Nml appearance, Joint swelling Neurologic/Psychiatric: positive: Oriented x3, CN's nml (2-12), Motor nml, Sensation nml, Weakness, Depressed mood/affect Reflexes: Bicep (R): 3+, Bicep (L): 3+ - LABS Result Diagrams: 03/17/18 05:10 03/17/18 15:20 - FOLLOW UP Follow Up: Disposition: 01 Home, Self Care Condition: Fair Prescriptions: Phenazopyridine [Pyridium] 100 mg PO TID PRN #20 tablet PRN Reason: Pain Potassium Chloride [K-Dur] 40 meq PO TIDWM 5 Days #30 tablet Saccharomyces Boulardii [Florastor] 250 mg PO BID #28 capsule Sulfamethox/Trimeth 800/160 [Bactrim Ds] 1 each PO BID #14 tablet Diet: Regular Activity Restrictions: No Restrictions Shower Restrictions: No Driving Restrictions: Yes Weight Bearing: Full Weight Additional Instructions or Follow Up instructions: You were observed for one night for your electrolyte imbalance that was caused by the vomiting and diarrhea. You were found to have a UTI with e. coli as the pathogen. You should continue on an oral antibiotic and a probiotic for the next 7 days. You should see your PCP within one week. It sounds like you are working on getting an appointment with the pain clinic. - TIME SPENT Time Spent in Discharge (Minutes): 50
--- NOTE | 2018-03-17 15:17 | Discharge Plan ---
Discharge Plan Disposition: Home, Self Care Condition: Fair Prescriptions: Phenazopyridine [Pyridium] 100 mg PO TID PRN #20 tablet PRN Reason: Pain Potassium Chloride [K-Dur] 40 meq PO TIDWM 5 Days #30 tablet Saccharomyces Boulardii [Florastor] 250 mg PO BID #28 capsule Sulfamethox/Trimeth 800/160 [Bactrim Ds] 1 each PO BID #14 tablet Diet: Regular Activity Restrictions: No Restrictions Shower Restrictions: No Driving Restrictions: Yes Weight Bearing: Full Weight Additional Instructions or Follow Up instructions: You were observed for one night for your electrolyte imbalance that was caused by the vomiting and diarrhea. You were found to have a UTI with e. coli as the pathogen. You should continue on an oral antibiotic and a probiotic for the next 7 days. You should see your PCP within one week. It sounds like you are working on getting an appointment with the pain clinic. No Smoking: If you smoke, Please STOP! Call for help. Follow-up with: Provider,Other [Primary Care Provider] - 1 Week
[2018-03-17 15:49] LABS: BUN - BLOOD UREA NITROGEN < 5 mg/dL (6-20); CALCIUM 7.9 mg/dL (8.5-10.3); CARBON DIOXIDE - CO2 24 mmol/L (21-32); CHLORIDE 103 mmol/L (101-111); CREATININE 0.5 mg/dL (0.4-1.0); GFR - MDRD 129 (>89); GLUCOSE 158 mg/dL (70-100); SODIUM 138 mmol/L (135-145)
[2018-03-17 18:08] VITALS: BP 144/85
[2018-03-17] MEDS ORDERED: PHENYTOIN ER 100 MG CAPSULE PO SCH (21:00)
[2018-03-18] MEDS ORDERED: CHLORTHALIDONE 25 MG TABLET PO SCH (09:00)
[2018-03-18] MEDS ORDERED: CHOLECALCIFEROL 1,000 UNIT TABLET PO SCH (09:00)
== END 2018-03-17 18:30 | disposition home or self-care (01) ==
LOC: ED 22:46 → MS2 03-16 03:56
PROVIDERS: ADMIT Hospitalist; ATTEND Nurse Practitioner
DX: N39.0 Urinary tract infection, site not specified (principal); E86.0 Dehydration; E87.6 Hypokalemia; B96.20 Unspecified Escherichia coli [E. coli] as the cause of diseases classified elsewhere; R11.2 Nausea with vomiting, unspecified; G89.4 Chronic pain syndrome; G40.909 Epilepsy, unspecified, not intractable, without status epilepticus; G43.109 Migraine with aura, not intractable, without status migrainosus; E03.9 Hypothyroidism, unspecified; E78.5 Hyperlipidemia, unspecified; I12.9 Hypertensive chronic kidney disease with stage 1 through stage 4 chronic kidney disease, or unspecified chronic kidney disease; N18.9 Chronic kidney disease, unspecified; M32.9 Systemic lupus erythematosus, unspecified; M79.7 Fibromyalgia; M54.9 Dorsalgia, unspecified; F32.9 Major depressive disorder, single episode, unspecified; J45.909 Unspecified asthma, uncomplicated; K21.9 Gastro-esophageal reflux disease without esophagitis; Z86.73 Personal history of transient ischemic attack (TIA), and cerebral infarction without residual deficits; Z85.43 Personal history of malignant neoplasm of ovary; Z87.11 Personal history of peptic ulcer disease; Z87.442 Personal history of urinary calculi; Z66 Do not resuscitate; Z79.899 Other long term (current) drug therapy; Z79.891 Long term (current) use of opiate analgesic; Z86.14 Personal history of Methicillin resistant Staphylococcus aureus infection; Z90.49 Acquired absence of other specified parts of digestive tract
CPT/HCPCS: 36415; 80048; 80053; 80177; 80185; 81001; 81003; 82330; 83690; 83735; 84100; 85025; 85027; 87086; 87181; 96361; 96365; 96366; 96367; 96368; 96374; 96375; 96376; 99283; 99284

== ENCOUNTER 2018-09-05 13:17 | Outpatient (CLI) | payer MEDICARE, MEDICAID | END 2018-09-05 13:18 | disposition critical access hospital (66) | LOC: EMS 13:17 | PROVIDERS: ATTEND Surgery | DX: R11.2 Nausea with vomiting, unspecified (principal) | CPT/HCPCS: A0425; A0427 ==

== ENCOUNTER 2018-09-05 13:33 | Observation (INO) | payer MEDICARE, MEDICAID ==
[2018-09-05] MEDS ORDERED: SODIUM CHLORIDE 0.9% 1,000 ML IV ONE (13:50)
[2018-09-05] MEDS ORDERED: MORPHINE 2 MG/ML CARPUJECT IVP STA ×2 (13:51→14:46)
--- NOTE | 2018-09-05 13:52 | ED Physician Documentation ---
PD HPI ABD PAIN - Stated complaint Stated Complaint: R FLANK PX - Chief complaint Chief Complaint: Abd Pain - History obtained from History obtained from: Patient - History of Present Illness Timing - onset: Other (This is a 53-year-old woman with history of chronic osteomyelitis of the hip who was diagnosed with pyelonephritis on and treated with Bactrim. The culture grew Citrobacter which was sensitive to Bactrim. Flank pain and hematuria recurred over the last couple of days with vomiting and low-grade fevers and chills. She is unable to keep anything down if pain is severe.) Review of Systems Constitutional: reports: Fever, Chills Nose: denies: Rhinorrhea / runny nose, Congestion Cardiac: denies: Chest pain / pressure, Palpitations Respiratory: denies: Dyspnea, Cough PD PAST MEDICAL HISTORY - Past Medical History Cardiovascular: Hypertension, High cholesterol Respiratory: Asthma, Pneumonia Neuro: Seizure disorder Endocrine/Autoimmune: HyPOthyroidism, Systemic lupus erythematosus GI: GERD, Ulcers, C.difficile [employer]: Ovarian cancer : Renal insuffiency, Nocturia, Frequency, Kidney stones HEENT: None Psych: Depression, Other Musculoskeletal: Osteoarthritis, Fatigue, Chronic back pain Derm: Other drug resistant infections, Psoriasis - Past Surgical History Past Surgical History: Yes General: Cholecystectomy, Appendectomy Ortho: Hip replacement, Spine surgery /[employer]: 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, Oophrectomy - Present Medications Home Medications: Ambulatory Orders Medication Instructions Recorded Confirmed traZODone [Desyrel] 50 mg PO QPM 10/14/16 03/16/18 Carvedilol [Coreg] 6.25 mg PO BID tablet 10/15/16 09/05/18 Chlorthalidone 25 mg PO DAILY 01/23/17 03/16/18 amLODIPine [Norvasc] 10 mg PO DAILY 01/23/17 03/16/18 Methocarbamol [Robaxin-750] 750 mg PO QID PRN 02/09/18 03/16/18 Omeprazole [PriLOSEC] 20 mg PO BID PRN 02/09/18 03/16/18 Oxycodone HCl/Acetaminophen 1 tab PO QID 02/09/18 09/05/18 [Oxycodone-Acetaminophen 5-325] Pregabalin [Lyrica] 100 mg PO TID 02/09/18 09/05/18 levETIRAcetam [Keppra] 500 mg PO BID 02/09/18 03/16/18 Butalbit/Acetamin/Caff/Codeine 1 cap PO TID PRN 02/10/18 09/05/18 [Mzxliy-Mgae-Odbtrbdxpok-Codein] Phenytoin Sodium Extended 100 mg PO QPM 03/16/18 03/16/18 Loratadine [Claritin] 20 mg PO BID 08/17/18 08/17/18 fentaNYL [Fentanyl 25mcg patch] 1 patch TOP Q72H 09/05/18 09/05/18 - Allergies Allergies/Adverse Reactions: Allergies Allergy/AdvReac Type Severity Reaction Status Date / Time Penicillins Allergy Severe Respiratory Verified 09/05/18 13:39 bacitracin Allergy Mild Hives Verified 09/05/18 13:39 [From Neosporin ([id number]-yss-naxaz)] bacitracin zinc * Allergy Mild Itching Verified 09/05/18 13:39 [From Neosporin ([id number])] neomycin sulfate * Allergy Mild Itching Verified 09/05/18 13:39 [From Neosporin (ajp-ioy-bcdnz)] venom-honey bee Allergy Unknown Verified 09/05/18 13:39 [bee venom (honey bee)] ciprofloxacin AdvReac Emesis Verified 09/05/18 13:39 - Social History Does the pt smoke?: No Smoking Status: Never smoker Does the pt drink ETOH?: No Does the pt have substance abuse?: No - Immunizations Immunizations are current?: Yes - POLST Patient has POLST: Yes POLST Status: DNR PD ED PE NORMAL - Vitals Vital signs reviewed: Yes - General General: Alert and oriented X 3, No acute distress - HEENT HEENT: PERRL, EOMI - Neck Neck: Supple, no meningeal sign, No bony TTP - Cardiac Cardiac: RRR, No murmur - Respiratory Respiratory: No respiratory distress, Clear bilaterally - Abdomen Abdomen: Other (Right-sided abdominal and flank tenderness without surgical signs) - Back Back: No CVA TTP, No spinal TTP - Derm Derm: Normal color, Warm and dry - Extremities Extremities: No edema, No calf tenderness / cord - Neuro Neuro: Alert and oriented X 3, Normal speech Results - Vitals Vitals: Vital Signs - 24 hr 09/05/18 13:34 Temperature 36.0 C L Heart Rate 101 H Respiratory 16 Rate Blood Pressure 187/114 H O2 Saturation 99 Oxygen O2 Source Room air - Labs Labs: Laboratory Tests 09/05/18 09/05/18 09/05/18 14:10 14:10 14:21 WBC 7.0 RBC 5.14 Hgb 15.4 Hct 43.9 MCV 85.5 MCH 30.0 MCHC 35.1 RDW 13.5 Plt Count 365 MPV 8.2 Neut # (Auto) 5.5 Lymph # (Auto) 1.2 L [place] # (Auto) 0.3 Eos # (Auto) 0.0 Baso # (Auto) 0.1 Absolute Nucleated RBC 0.00 Nucleated RBC % 0.0 Sodium 130 L Potassium 2.3 L* Chloride 93 L Carbon Dioxide 13 L Anion Gap 24.0 H BUN 5 L Creatinine 0.7 Estimated GFR (MDRD) 88 L Glucose 137 H Lactic Acid 1.3 Calcium 9.8 Total Bilirubin 1.5 H AST 20 ALT 13 Alkaline Phosphatase 113 Total Protein 8.4 H Albumin 5.3 Globulin 3.1 Albumin/Globulin Ratio 1.7 Lipase 27 Urine Color Urine Clarity Urine pH Ur Specific [place] Urine Protein Urine Glucose (UA) Urine Ketones Urine Occult Blood Urine Nitrite Urine Bilirubin Urine Urobilinogen Ur Leukocyte Esterase Ur Microscopic Review Urine Culture Comments 09/05/18 16:33 WBC RBC Hgb Hct MCV MCH MCHC RDW Plt Count MPV Neut # (Auto) Lymph # (Auto) [place] # (Auto) Eos # (Auto) Baso # (Auto) Absolute Nucleated RBC Nucleated RBC % Sodium Potassium Chloride Carbon Dioxide Anion Gap BUN Creatinine Estimated GFR (MDRD) Glucose Lactic Acid Calcium Total Bilirubin AST ALT Alkaline Phosphatase Total Protein Albumin Globulin Albumin/Globulin Ratio Lipase Urine Color YELLOW Urine Clarity HAZY Urine pH 6.0 Ur Specific [place] 1.025 Urine Protein 100 H Urine Glucose (UA) NEGATIVE Urine Ketones >=80 H Urine Occult Blood LARGE H Urine Nitrite NEGATIVE Urine Bilirubin NEGATIVE Urine Urobilinogen 0.2 (NORMAL) Ur Leukocyte Esterase NEGATIVE Ur Microscopic Review INDICATED Urine Culture Comments Not Reportable Procedures - General procedure General procedure: She was difficult for IV access. After a few tries I personally placed a long 22-gauge IV in the left deep brachial vein using real-time ultrasound guidance that flushed and yomaira well. PD MEDICAL DECISION MAKING - ED course ED course: 53-year-old woman with chronic osteomyelitis of the hip that is stable presents with flank pain after pyelonephritis. Also she is hematuria which is actually chronic issue for her. Her urinalysis shows blood but no evidence of infection. This is a chronic finding. Records reviewed, she had a CT scan a little over 2 weeks ago which showed no nephrolithiasis. Given the severe hypokalemia she was repleted both IV and oral and had persistent nausea although her pain was not too hard to control. Will be placed in observation for continued potassium repletion. Departure - Departure Disposition: ED Place in Observation Clinical Impression: Abdominal pain, Vomiting, Flank pain, acute, Dehydration, Hypokalemia Hematuria Qualifiers: Hematuria type: gross Qualified Code(s): R31.0 - Gross hematuria Condition: Stable
[2018-09-05] MEDS ORDERED: PROCHLORPERAZINE 10 MG/2 ML VIAL IVP STA ×2 (14:10→16:55)
[2018-09-05 14:26] LABS: BASOPHILS # (AUTO) 0.1 10^3/uL (0.0-0.1); BASOPHILS % (AUTO) 0.7 %; HGB - HEMOGLOBIN 15.4 g/dL (12.0-16.0); LYMPHOCYTES # (AUTO) 1.2 10^3/uL (1.5-3.5); MEAN CORPUSCULAR HGB CONC 35.1 g/dL (32.0-36.0); MEAN CORPUSCULAR VOLUME 85.5 fL (81.0-99.0); MEAN PLATELET VOLUME 8.2 fL (7.9-10.8); MONOCYTES # (AUTO) 0.3 10^3/uL (0.0-1.0); MONOCYTES % (AUTO) 4.5 %; NEUTROPHILS # (AUTO) 5.5 10^3/uL (1.5-6.6); NEUTROPHILS % (AUTO) 77.8 %; PLT - PLATELET COUNT 365 10^3/uL (130-450); RED BLOOD COUNT 5.14 10^6/uL (4.20-5.40); RED CELL DISTRIBUTION WIDTH 13.5 % (12.0-15.0)
[2018-09-05 14:42] LABS: ALBUMIN 5.3 g/dL (3.2-5.5); ALBUMIN/GLOBULIN RATIO 1.7 (1.0-2.2); BILIRUBIN,TOTAL 1.5 mg/dL (0.2-1.0); CALCIUM 9.8 mg/dL (8.5-10.3); CREATININE 0.7 mg/dL (0.4-1.0); TOTAL PROTEIN 8.4 g/dL (6.7-8.2)
[2018-09-05] MEDS ORDERED: POTASSIUM CHLOR 10 MEQ/100 ML 10 MEQ/100 ML BAG IV ONE (14:43)
[2018-09-05] MEDS ORDERED: LACTATED RINGERS 1,000 ML IV STA (14:43)
[2018-09-05] MEDS ORDERED: POTASSIUM BICARB 25 MEQ TABLET PO STA (14:43)
[2018-09-05 16:45] LABS: BILIRUBIN,URINE NEGATIVE (NEGATIVE); GLUCOSE, URINE (UA) NEGATIVE (NEGATIVE); KETONES,URINE (UA) >=80 mg/dL (NEGATIVE); LEUKOCYTE ESTERASE, URINE NEGATIVE (NEGATIVE); NITRITE,URINE NEGATIVE (NEGATIVE); OCCULT BLOOD,URINE LARGE (NEGATIVE); PROTEIN,URINE 100 mg/dL (NEGATIVE); UROBILINOGEN,URINE 0.2 (NORMAL) E.U./dL (NORMAL)
[2018-09-05 16:49] LABS: CLARITY,URINE HAZY (CLEAR)
[2018-09-05 16:58] LABS: BACTERIA,URINE Few /HPF (None Seen); RBC,URINE TNTC /HPF (0-5); SQUAMOUS EPITHELIAL CELL,UR FEW Squamous (<= Few)
[2018-09-05] MEDS ORDERED: oxyCODONE 5 MG TABLET PO PRN (17:23)
[2018-09-05] MEDS ORDERED: ACETAMINOPHEN 325 MG TABLET PO PRN (17:23)
[2018-09-05] MEDS ORDERED: ONDANSETRON ODT 4 MG TABLET TL PRN (17:23)
[2018-09-05] MEDS ORDERED: ONDANSETRON 4 MG/2 ML VIAL IVP PRN (17:23)
[2018-09-05] MEDS ORDERED: fentaNYL 25 MCG PATCH TOP SCH (18:00)
--- NOTE | 2018-09-05 18:03 | HISTORY & PHYSICAL EXAMINATION ---
Chief Complaint - Chief Complaint Chief Complaint: nasuea and vomitting History of Present Illness - Admitted From Admitted From:: Home/ER - History Obtained From Records Reviewed: [facility] History obtained from: Dr. Garrett, patient, [facility] Exam Limitations: none. - History of Present Illness HPI Comment/Other: She is an unfortunate middle-aged white female who has a history of multiple abdominal surgeries for multiple small bowel obstructions. She is well-known to the ER and hospital service for her multiple admissions. She was last seen July 2018 for pyelonephritis with chronic hematuria. Her urine grew out Citrobacter and she was placed on Bactrim which was an adequate choice on sensitivities. She has hematuria and almost all of her urinalysis. 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 She developed osteomyelitis in 2007. Was treated for years with IV antibiotics. They finally put in Theodore spacer after resecting bone 3 years ago. The spacer is embedded with antibiotics. She is due to have the spacer removed with a new hip put in October 2018. She is basically bedbound. But when she gets up out of bed she is able to use a hop step 9, nonweightbearing on the affected hip, using a 4 wheel walker with a seat. Last time she got out of bed was about 36 hours ago when all of this nausea and vomiting started. She has recurrent nausea, vomiting. It started about 36 hours ago with no real cause. No diarrhea. Some abd pain. She has been vomiting for a couple of days, unable to keep anything down. She does have some right flank pain and continued hematuria. She was evaluated by Dr. Garrett who feels that she is dehydrated on exam, has a nontender flank, not elevated white cell count, but her potassium was 2.3 again. This is in spite of being on potassium 20 mEq a day. She is on a fentanyl patch, uses Percocet for breakthrough pain. In the emergency room she received Compazine, a potassium rider, oral potassium, and morphine for abdominal pain. Compazine works better than Zofran for her. She does not have a fever. She was mildly tachycardic at 101 when she came in. She is normotensive at 158/85 after presenting with a blood pressure of 187/114. Dr. Hart opted not to CAT scan her again since she just had a CT on [place] for that hematuria and flank pain. She denies fever, chills. Just abdominal pain with nausea and vomiting. There is no blood in the emesis. For dehydration and replacement of her potassium. She is now placed in observation History - Past Medical History Cardiovascular: reports: Hypertension, High cholesterol Respiratory: reports: Asthma, Pneumonia Neuro: reports: Seizure disorder Endocrine/Autoimmune: reports: HyPOthyroidism, Systemic lupus erythematosus GI: reports: GERD, Ulcers, C.difficile STUDIO GRIP: reports: Ovarian cancer : reports: Renal insuffiency, Nocturia, Frequency, Kidney stones HEENT: reports: None Psych: reports: Depression, Other Musculoskeletal: reports: Osteoarthritis, Fatigue, Chronic back pain Derm: reports: Other drug resistant infections, Psoriasis MRSA Hx?: Yes - Past Surgical History General: reports: Cholecystectomy, Appendectomy Ortho: reports: Hip replacement, Spine surgery /STUDIO GRIP: reports: 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, Oophrectomy - Family & Social History Family History: Mother: Alive and Well, Father: , CAD Family History Comment/Other: Mother is alive and well, with Lupus. Father from heart disease. The patient is an only child. Social History Notes: The patient has one daughter and her first when her daughter was 2 years old. The patient is legally fro m her 2nd . She is living with her daughter and her daughter's boyfriend in [place]. There are 2 dogs in the home, and the patient has one cat named Andrew. She no longer drives. 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 She was using a walker and and has been nonweightbearing on the left side since her surgeries. She can perform all of her daily ADLs, but very little house work. She denies ETOH, tobacco, or illicit drug use. She wishes to be a DNR. - Substance History Use: Uses substance without health or social issues: Opioid - POLST Patient has POLST: Yes POLST Status: DNR Meds/Allgy - Home Medications Home Medications: Ambulatory Orders Medication Instructions Recorded Confirmed traZODone [Desyrel] 50 mg PO QPM 10/14/16 03/16/18 Carvedilol [Coreg] 6.25 mg PO BID tablet 10/15/16 09/05/18 Chlorthalidone 25 mg PO DAILY 01/23/17 03/16/18 amLODIPine [Norvasc] 10 mg PO DAILY 01/23/17 03/16/18 Methocarbamol [Robaxin-750] 750 mg PO QID PRN 02/09/18 03/16/18 Omeprazole [PriLOSEC] 20 mg PO BID PRN 02/09/18 03/16/18 Oxycodone HCl/Acetaminophen 1 tab PO QID 02/09/18 09/05/18 [Oxycodone-Acetaminophen 5-325] Pregabalin [Lyrica] 100 mg PO TID 02/09/18 09/05/18 levETIRAcetam [Keppra] 500 mg PO BID 02/09/18 03/16/18 Butalbit/Acetamin/Caff/Codeine 1 cap PO TID PRN 02/10/18 09/05/18 [Pfsger-Hdmd-Mdusfpisblu-Codein] Phenytoin Sodium Extended 100 mg PO QPM 03/16/18 03/16/18 Loratadine [Claritin] 20 mg PO BID 08/17/18 08/17/18 fentaNYL [Fentanyl 25mcg patch] 1 patch TOP Q72H 09/05/18 09/05/18 - Allergies Allergies/Adverse Reactions: Allergies Allergy/AdvReac Type Severity Reaction Status Date / Time Penicillins Allergy Severe Respiratory Verified 09/05/18 13:39 bacitracin Allergy Mild Hives Verified 09/05/18 13:39 [From Neosporin ([id number])] bacitracin zinc * Allergy Mild Itching Verified 09/05/18 13:39 [From Neosporin ([id number])] neomycin sulfate * Allergy Mild Itching Verified 09/05/18 13:39 [From Neosporin ([id number])] venom-honey bee Allergy Unknown Verified 09/05/18 13:39 [bee venom (honey bee)] ciprofloxacin AdvReac Emesis Verified 09/05/18 13:39 Review of Systems - Constitutional Constitutional: reports: Fatigue, Weakness, Poor appetite. denies: Fever, Chills, Malaise, Diaphoresis, Night sweats - Eyes Eyes: denies: Pain, Irritation, Amaurosis, Blurred vision, Spots in vision - Ears, Nose & Throat Ears, Nose & Throat: denies: Ear pain, Hearing loss, Hearing aids, Tinnitus, Vertigo, Nasal discharge, Sore throat, Hoarseness - Cardiovascular Cariovascular: reports: Lightheadedness. denies: Irregular heart rate, Palpitations, Chest pain, Edema, Syncope, Exertional dyspnea, Decr. exercise tolerance - Respiratory Respiratory: denies: Cough, Sputum production, Wheezing, Snoring, SOB at rest, SOB with exertion - Gastrointestinal Gastrointestinal: reports: Abdominal pain, Nausea, Vomiting, Reflux/heartburn, Poor appetite. denies: Abdominal distention, Constipation, Diarrhea, Change in bowel habits, Rectal bleeding, Bile emesis, Galen blood emesis, Coffee grounds emesis - Genitourinary Genitourinary: reports: Hematuria. denies: Dysuria, Frequency, Urgency - Musculoskeletal Musculoskeletal: reports: Muscle weakness (Because of the hip, she really does not walk very much and is gotten weaker and weaker over time. She spends most of her time in bed.). denies: Muscle pain, Back pain, Muscle aches, Stiffness - Integumentary Integumentary: denies: Rash, Pruritis, Lesions, Dryness - Neurological Neurological: reports: General weakness. denies: Focal weakness, Headache, Dizziness, Numbness, Memory problems - Psychiatric Psychiatric: reports: Depression. denies: Suicidal - Endocrine Endocrine: denies: Polyuria, Polydypsia, Polyphagia Prior Level of Functionality: She is able to text toe step. But is been told to stay nonweightbearing off of the affected hip. So she hops a little bit on the good leg and use that 4 wheel walker with seat. She spends most of her time in bed. Exam - Vital Signs Reviewed Vital Signs: Yes Vital Signs: Vital Signs x48h Temp Pulse Resp BP Pulse Ox 09/05/18 17:34 80 16 158/85 H 99 09/05/18 13:34 36.0 C L 101 H 16 187/114 H 99 - Physical Exam General Appearance: positive: No acute distress, Alert, Other (5 foot 1 inch, 70.3 kg white female, well-nourished well-developed, slight forward brow, and look of fatigue.) Eyes Bilateral: positive: PERRL, EOMI ENT: positive: Dry mucous membranes Neck: positive: No JVD. negative: Stiff neck, Carotid bruit Respiratory: positive: Chest non-tender. negative: Wheezes, Rales, Rhonchi Cardiovascular: positive: Regular rate & rhythm. negative: Gallop/S4, Friction rub Peripheral Pulses: positive: 1+ Abdomen: positive: Other (Abdomen is mildly diffusely distended. She says sometimes it did get much worse than this. Diffuse hypoactive bowel sounds. Diffuse mild tenderness with no specific guarding or rebound. She seems to have flank pain on the right flank when compared to the left but nothing severe. Just minor more ache.) Skin: positive: Color nml, No rash Extremities: positive: Non-tender, No pedal edema, Other (Scaling yellow rash on the bottom of her left heel. You could see with a try to put a foot IV in the right foot. But skin of legs looks quite good, no venous stasis, no breakdown.) Neurologic/Psychiatric: positive: Oriented x3, CN's nml (2-12), Motor nml Conclusion/Plan - Problem List (1) Dehydration Conclusion/Plan: From recurrent nausea and vomiting. Plan: This unfortunate female has a long history of recurrent episodes of this. Well-known to our service. Agree with Dr. Hart that to rescan her when this is a typical presentation and this is not out of the ordinary for her. There is no fever, no elevated white cell count, lactic acid is normal. IV hydration Antiemetics. She prefers Compazine. (2) Hypokalemia Conclusion/Plan: IV supplementation. Repeat potassium in the morning. Currently I am going to give her 80 mEq. (3) Do not resuscitate status Conclusion/Plan: She says that should be noted in her chart. There have been no changes in that. - Lab Results Lab results reviewed: Yes Fish Bones: 09/05/18 14:10 09/05/18 14:10
[2018-09-05] MEDS: SODIUM CHLORIDE 0.9% 1,000 ML IV SCH (19:17)
[2018-09-05] MEDS: POTASSIUM CHLOR 10 MEQ/100 ML 10 MEQ/100 ML BAG IV SCH ×4 (19:18→23:07)
[2018-09-05] MEDS: SODIUM CHLORIDE FLUSH 0.9% 10 ML SYRINGE IVP PRN (19:18)
[2018-09-05] MEDS: MORPHINE 2 MG/ML CARPUJECT IVP PRN (19:21)
[2018-09-05] MEDS: PROCHLORPERAZINE 10 MG/2 ML VIAL IVP PRN (20:20)
[2018-09-05] MEDS: CARVEDILOL 3.125 MG TABLET PO SCH (20:21)
[2018-09-05] MEDS: levETIRAcetam 250 MG TABLET PO SCH (20:22)
[2018-09-05] MEDS: PREGABALIN 100 MG CAPSULE PO SCH (20:22)
[2018-09-05] MEDS ORDERED: traZODone 50 MG TABLET PO SCH (21:00)
[2018-09-05] MEDS ORDERED: PHENYTOIN ER 100 MG CAPSULE PO SCH (21:00)
[2018-09-06] MEDS: MORPHINE 2 MG/ML CARPUJECT IVP PRN ×3 (00:28→08:38)
[2018-09-06] MEDS: SODIUM CHLORIDE FLUSH 0.9% 10 ML SYRINGE IVP PRN ×3 (00:29→04:39)
[2018-09-06] MEDS: PROCHLORPERAZINE 10 MG/2 ML VIAL IVP PRN ×4 (00:45→12:53)
[2018-09-06] MEDS: SODIUM CHLORIDE FLUSH 0.9% 10 ML SYRINGE IVP SCH ×2 (01:01→08:39)
[2018-09-06] MEDS: POTASSIUM CHLOR 10 MEQ/100 ML 10 MEQ/100 ML BAG IV SCH ×4 (01:23→05:00)
[2018-09-06 05:25] LABS: BUN - BLOOD UREA NITROGEN < 5 mg/dL (6-20); CARBON DIOXIDE - CO2 16 mmol/L (21-32); CHLORIDE 102 mmol/L (101-111); CREATININE 0.7 mg/dL (0.4-1.0); GFR - MDRD 88 (>89); GLUCOSE 108 mg/dL (70-100); SODIUM 133 mmol/L (135-145)
[2018-09-06] MEDS: PREGABALIN 100 MG CAPSULE PO SCH ×2 (06:45→13:54)
[2018-09-06] MEDS: SODIUM CHLORIDE 0.9% 1,000 ML IV SCH (06:45)
[2018-09-06] MEDS ORDERED: POTASSIUM CHLORIDE INJ 40 MEQ in SODIUM CHLORIDE 0.9% 480 ML IV ONE (08:13)
--- NOTE | 2018-09-06 08:28 | Discharge Plan ---
Discharge Plan Disposition: Home, Self Care Condition: Fair Prescriptions: Potassium Chloride [K-Dur] 40 meq PO DAILY #34 tablet Prochlorperazine Maleate [Compazine] 10 mg PO TID PRN #30 tablet PRN Reason: Nausea / Vomiting Prochlorperazine Supp [Compazine Supp] 25 mg CA TID PRN #30 supp PRN Reason: Nausea / Vomiting Diet: Regular Activity Restrictions: touch down weight bearing on hip with spacer Shower Restrictions: No Driving Restrictions: Yes (no driving) Assistance Devices: Wheelchair, Walker Instruction Topics: Nausea Vomit Control, Hypokalemia Dc, ED Diet High Potassium Additional Instructions or Follow Up instructions: You were admitted to the hospital because of nausea and vomiting causing yet an other episode of severe dehydration and low potassium. Unfortunately, you have many episodes of that. These are not new to you. Overnight we gave you IV potassium. On the morning of discharge you were eating your breakfast, and tolerating regular oral intake. No vomiting. Your potassium was 3.1 on the morning of discharge. So I gave you some more potassium and repeat potassium was 2.8. Because you are feeling so good, you really wanted to go home. You would prefer to take oral potassium at home rather than stay in the hospital. As such I would like you to take 40 mEq of potassium instead of your usual 20 mEq. You will take 40 mEq tonight, and 40 mEq in the morning, afternoon, and evening tomorrow. Starting September 08, take 40 mEq potassium a day as opposed to 20. Please get your potassium level checked September 09. As such we are sending you home to resume your usual medications. Please follow-up with your primary care provider, Dr. Jin, in the next 2 weeks for routine follow-up. No Smoking: If you smoke, Please STOP! Call for help. Follow-up with: Quiana Jin DO [Physician No Access] -
[2018-09-06] MEDS: levETIRAcetam 250 MG TABLET PO SCH (08:33)
[2018-09-06] MEDS: CARVEDILOL 3.125 MG TABLET PO SCH (08:33)
[2018-09-06] MEDS ORDERED: POLYETHYLENE GLYCOL 3350 17 GM PACKET PO SCH (09:00)
[2018-09-06] MEDS ORDERED: amLODIPine 5 MG TABLET PO SCH (10:00)
[2018-09-06] MEDS ORDERED: POTASSIUM CHLORIDE 20 MEQ TABLET PO SCH (13:00)
[2018-09-06 13:55] VITALS: BP 122/59
--- NOTE | 2018-09-08 15:23 | DISCHARGE SUMMARY ---
Physician: Tangela Thomson MD DATE OF ADMISSION: 09/05/2018 DATE OF DISCHARGE: 09/06/2018 DISCHARGE DIAGNOSES 1. Intractable nausea and vomiting. 2. Dehydration. 3. Hypokalemia. 4. Chronic pain syndrome. 5. Seizure disorder. DISCHARGE MEDICATIONS 1. Amlodipine 10 mg daily. 2. Fioricet with butalbital/acetaminophen caffeine and codeine 1 capsule p.o. t.i.d. as needed. 3. Certirizine 10 mg daily. 4. Chlorthalidone 25 mg daily. 5. Fentanyl patch 25 mcg topically every 72 hours. 6. Keppra 500 mg p.o. b.i.d. 7. Melatonin 5 mg p.o. q.p.m. p.r.n. 8. Robaxin 750 p.o. q.i.d. 9. Prilosec 20 p.o. b.i.d. 10. Oxycodone with acetaminophen 5/325 tablet 4 times a day as needed. 11. Dilantin 100 mg in the evening. 12. Lyrica 100 mg p.o. t.i.d. 13. Desyrel 50 mg p.o. 14. Coreg 6.25 b.i.d. 15. Potassium 20 mEq p.o. t.i.d. in the first 24 hours, then 40 mEq p.o. daily thereafter. 16. Compazine 10 mg p.o. p.r.n. nausea as well as 25 mg suppositories per rectum t.i.d. p.r.n. nausea if unable to take p.o. PRINCIPAL PROCEDURES: IV hydration, with over 160 mEq of potassium given over 24 hours. HOSPITAL COURSE: The patient is well known to our service. She is an unfortunate 53-year-old female who has had multiple abdominal surgeries, and it has resulted in adhesions with multiple small bowel obstructions. She will develop nausea, vomiting that is intractable and unrelieved by IV fluids, antiemetics in the ED, and will require an inpatient stay. Sometimes an observation stay. She is also a patient who has a hip spacer. She has had osteomyelitis of the hip, and this was approximately 2007. 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 She has a hip spacer for the last 3 years. She is nonweightbearing on that leg. She is due to have a new hip placed October of this year. She is basically bedbound. Lives with her daughter and daughter's boyfriend. She comes to the emergency room with another episode of intractable nausea and vomiting. Started approximately 36 hours before admission. No fever, no chills. She is passing flatus. There is no blood in the emesis or her stool. There is no specific abdominal pain associated with this. In the emergency room, she was dehydrated, hypokalemic; placed in observation for hydration and replacement of potassium. This was done, and her potassium went from 2.3 to 3.1. We then gave her another 40 mEq and rechecked her potassium right before discharge, but she had come back down to 2.8. She did not want to stay. She was now keeping food down, having flatus, no abdominal pain, and really just wanted to go home. So we sent her home on potassium 40 mEq p.o. t.i.d. for the first 24 hours, and increased her potassium from 20 mEq a day to 40 mEq a day. I have asked her to please see her primary care provider in followup to get a potassium check in the next week. She does not need to see them, just needs to get her potassium checked, and then follow up in a nonurgent basis after a week or two. PHYSICAL EXAMINATION VITAL SIGNS: At discharge, she is a short statured 5-foot 1-inch female at 71 kg with a temperature of 37, pulse 89, blood pressure 122/59, respirations 16, and 100% on room air. GENERAL: She is alert, oriented to person, place, and time. LUNGS: Clear. HEART: She has a regular rate and rhythm. There is no use of accessory muscles. No tachycardia. HEENT: Oral mucosa is now pink and moist. ABDOMEN: Loud borborygmi, and is slightly distended, but no rebound, no guarding, no masses palpable. EXTREMITIES: Slight edema around the ankles. She is nonweightbearing on the one hip and does hopping on the good leg, using a four-wheeled walker with a seat. She is returned to that. There is no change in durable medical equipment. TD: 09/08/2018 12:15 [facility]
== END 2018-09-06 15:33 | disposition home or self-care (01) ==
LOC: EDBD → EDUNIT# → ED 13:33 → OBS 17:23
PROVIDERS: ADMIT Specialist; ATTEND Specialist
DX: R11.2 Nausea with vomiting, unspecified (principal); E86.0 Dehydration; E87.6 Hypokalemia; G89.4 Chronic pain syndrome; G40.909 Epilepsy, unspecified, not intractable, without status epilepticus; R10.9 Unspecified abdominal pain; R10.817 Generalized abdominal tenderness; R31.0 Gross hematuria; K66.0 Peritoneal adhesions (postprocedural) (postinfection); K21.9 Gastro-esophageal reflux disease without esophagitis; I10 Essential (primary) hypertension; F32.9 Major depressive disorder, single episode, unspecified; Z87.440 Personal history of urinary (tract) infections; Z79.899 Other long term (current) drug therapy; Z87.39 Personal history of other diseases of the musculoskeletal system and connective tissue; Z89.622 Acquired absence of left hip joint; Z74.01 Bed confinement status; Z87.19 Personal history of other diseases of the digestive system; Z79.891 Long term (current) use of opiate analgesic; Z87.11 Personal history of peptic ulcer disease; Z86.19 Personal history of other infectious and parasitic diseases; Z85.43 Personal history of malignant neoplasm of ovary; Z87.442 Personal history of urinary calculi; Z86.14 Personal history of Methicillin resistant Staphylococcus aureus infection; Z66 Do not resuscitate
CPT/HCPCS: 36410; 36415; 80048; 80053; 81001; 83605; 83690; 84132; 85025; 87040; 96361; 96365; 96366; 96375; 96376; 99284; A9270; G0378; J7120; 81003; 87086

== ENCOUNTER 2018-09-14 17:59 | Outpatient (CLI) | payer MEDICARE, MEDICAID | END 2018-09-14 18:00 | disposition home or self-care (01) | LOC: EMS 17:59 | PROVIDERS: ATTEND Surgery | DX: R41.0 Disorientation, unspecified (principal); G40.909 Epilepsy, unspecified, not intractable, without status epilepticus; Z79.899 Other long term (current) drug therapy | CPT/HCPCS: A0425; A0429 ==

== ENCOUNTER 2018-09-14 18:20 | Inpatient (IN) | payer MEDICARE, MEDICAID ==
[2018-09-14] MEDS ORDERED: ONDANSETRON 4 MG/2 ML VIAL IVP STA ×2 (18:30→21:48)
--- NOTE | 2018-09-14 20:09 | ED Physician Documentation ---
PD HPI FOCAL NEURO - Stated complaint Stated Complaint: SZ - Chief complaint Chief Complaint: Neuro - History obtained from History obtained from: Patient, Family, EMS - History of Present Illness Timing - onset: Today (This is a 53-year-old woman with chronic osteitis of the hip and hypokalemia who was found by her daughter down on the floor today when she got home from work. She was confused with slurred speech and word finding. Has H/O sz D/O on keppra/dilantin. Has H/O ICH. 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: Ovarian cancer : Renal insuffiency, Nocturia, Frequency, Kidney stones HEENT: None Psych: Depression, Other Musculoskeletal: Osteoarthritis, Osteoporosis, Fatigue, Chronic back pain Derm: Other drug resistant infections, Psoriasis - Past Surgical History Past Surgical History: Yes General: Appendectomy Ortho: Hip replacement, Spine surgery /FLOOR ASSEMBLER: 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, Oophrectomy - Present Medications Home Medications: Ambulatory Orders Medication Instructions Recorded Confirmed RX: Carvedilol [Coreg] 6.25 mg PO BID tablet 10/15/16 09/05/18 RX: amLODIPine [Norvasc] 10 mg PO DAILY 01/23/17 09/14/18 RX: Methocarbamol [Robaxin-750] 500 mg PO QID PRN 02/09/18 09/14/18 RX: Omeprazole [PriLOSEC] 20 mg PO BID PRN 02/09/18 09/14/18 RX: Oxycodone HCl/Acetaminophen 1 tab PO QID 02/09/18 09/14/18 [Oxycodone-Acetaminophen 5-325] RX: Pregabalin [Lyrica] 100 mg PO TID 02/09/18 09/14/18 RX: levETIRAcetam [Keppra] 500 mg PO BID 02/09/18 09/14/18 RX: Butalbit/Acetamin/Caff/Codeine 1 cap PO TID PRN 02/10/18 09/05/18 [Hktpcs-Ctey-Byiwtvrkfyd-Codein] RX: Phenytoin Sodium Extended 100 mg PO QPM 03/16/18 09/14/18 RX: fentaNYL [Fentanyl 25mcg patch] 25 mcg TOP Q72H 09/05/18 09/14/18 Prochlorperazine Supp [Compazine 25 mg MD TID PRN #30 supp 09/06/18 Supp] RX: Cetirizine [ZyrTEC] 10 mg PO DAILY 09/06/18 09/14/18 RX: Melatonin 5 mg PO QPM PRN 09/06/18 09/14/18 RX: Potassium Chloride [K-Dur] 40 meq PO DAILY #34 tablet 09/06/18 09/14/18 Magnesium Oxide [Magnesium] 500 mg PO DAILY 09/14/18 09/14/18 Ondansetron [Ondansetron Odt] 8 mg PO Q6HR PRN 09/14/18 09/14/18 Prochlorperazine Maleate 8 mg PO QID 09/14/18 09/14/18 [Compazine] diphenhydrAMINE [Benadryl] 50 mg PO QID 09/14/18 09/14/18 - Allergies Allergies/Adverse Reactions: Allergies Allergy/AdvReac Type Severity Reaction Status Date / Time Penicillins Allergy Severe Respiratory Verified 09/05/18 13:39 bacitracin Allergy Mild Hives Verified 09/05/18 13:39 [From Neosporin ([id number])] bacitracin zinc * Allergy Mild Itching Verified 09/05/18 13:39 [From Neosporin ([id number])] neomycin sulfate * Allergy Mild Itching Verified 09/05/18 13:39 [From Neosporin ([id number])] venom-honey bee Allergy Unknown Verified 09/05/18 13:39 [bee venom (honey bee)] ciprofloxacin AdvReac Emesis Verified 09/05/18 13:39 - Social History Does the pt smoke?: No Smoking Status: Never smoker Does the pt drink ETOH?: No Does the pt have substance abuse?: No - Immunizations Immunizations are current?: Yes - POLST Patient has POLST: Yes POLST Status: DNR PD ED PE NORMAL - Vitals Vital signs reviewed: Yes - General General: Other (She is alert but slow to answer questions. 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 Eye Opening: Spontaneous Motor: Obeys Commands Verbal: Confused GCS Score: 14 - Psych Psych: Normal mood, Normal affect NIHSS - Time Time: 20:20 - Level of Consciousness Level of consciousness: (0) Alert, Keenly responsive LOC Questions: (2) Answers neither correct LOC Commands: (0) Performs both correctly - Gaze Best Gaze: (0) Normal - Visual Visual: (0) No loss - Facial Palsy Facial Palsy: (0) Normal, symmetrical movement - Motor Arms (both separate) Motor Arm (right): (1) Drift Motor Arm (left): (0) No drift - Motor Legs (both separate) Motor Leg (right): (1) Drift Motor Leg (left): (1) Drift - Limb Ataxia Limb Ataxia: (0) Absent - Sensory Sensory: (0) Normal - Best Language Best Language: (1) [id number] - Dysarthria Dysarthria: (0) Normal - Extinction and Inattention (formally neg Extinction and inattention: (0) No abnormality - Total Score/Results Total Score/Result: 6 Results - Vitals Vitals: Vital Signs - 24 hr 09/14/18 09/14/18 09/14/18 18:20 20:32 20:44 Temperature 36 C L Heart Rate 110 H 105 H 104 H Respiratory 20 16 19 Rate Blood Pressure 146/97 H 150/119 H O2 Saturation 97 97 97 09/14/18 09/14/18 09/14/18 21:00 21:49 22:00 Temperature 36.2 C L Heart Rate 102 H 114 H 116 H Respiratory 16 14 20 Rate Blood Pressure 111/79 136/103 H 140/102 H O2 Saturation 98 98 98 09/14/18 22:30 Temperature Heart Rate 118 H Respiratory 28 H Rate Blood Pressure 150/132 H O2 Saturation 98 Oxygen O2 Source Room air - EKG (time done) 2115 Rate: Rate (enter#) (115) Rhythm: Atrial fibrillation [place]: Normal Ischemia: Non specific changes Computer interpretation: Agree with computer - Labs Labs: Laboratory Tests 09/14/18 09/14/18 09/14/18 20:15 20:38 20:38 WBC 14.0 H RBC 4.91 Hgb 15.2 Hct 41.7 MCV 84.9 MCH 31.0 MCHC 36.5 H RDW 13.7 Plt Count 398 MPV 7.8 L Neut # (Auto) 9.2 H Lymph # (Auto) 3.2 Stanley # (Auto) 1.6 H Eos # (Auto) 0.0 Baso # (Auto) 0.1 Absolute Nucleated RBC 0.01 Nucleated RBC % 0.1 Sodium 123 L Potassium < 1.5 L* Chloride 81 L Carbon Dioxide 23 Anion Gap 19.0 H BUN 10 Creatinine 0.7 Estimated GFR (MDRD) 88 L Glucose 131 H Calcium 9.3 Total Bilirubin 1.4 H AST 201 H ALT 27 Alkaline Phosphatase 103 Total Creatine Kinase 9291 H* CK-MB (CK-2) Troponin I Total Protein 7.2 Albumin 4.4 Globulin 2.8 Albumin/Globulin Ratio 1.6 Lipase 45 Urine Color YELLOW Urine Clarity SL. CLOUDY Urine pH 7.5 Ur Specific [place] 1.020 Urine Protein 100 H Urine Glucose (UA) NEGATIVE Urine Ketones TRACE Urine Occult Blood LARGE H Urine Nitrite NEGATIVE Urine Bilirubin NEGATIVE Urine Urobilinogen 0.2 (NORMAL) Ur Leukocyte Esterase NEGATIVE Urine RBC 11-25 H Urine WBC 6-10 H Ur Squamous Epith Cells RARE Squamous Urine Bacteria Few Ur Microscopic Review INDICATED Urine Culture Comments INDICATED Urine Opiates Screen POSITIVE H Ur Oxycodone Screen POSITIVE H Urine Methadone Screen NEGATIVE Ur Propoxyphene Screen NEGATIVE Ur Barbiturates Screen POSITIVE H Phenytoin Ur Tricyclics Screen NEGATIVE Ur Phencyclidine Scrn NEGATIVE Ur Amphetamine Screen NEGATIVE U Methamphetamines Scrn NEGATIVE U Benzodiazepines Scrn NEGATIVE Urine Cocaine Screen NEGATIVE U Cannabinoids Screen NEGATIVE Ethyl Alcohol < 5.0 09/14/18 09/14/18 09/14/18 20:38 20:38 22:12 WBC RBC Hgb Hct MCV MCH MCHC RDW Plt Count MPV Neut # (Auto) Lymph # (Auto) Stanley # (Auto) Eos # (Auto) Baso # (Auto) Absolute Nucleated RBC Nucleated RBC % Sodium Potassium Chloride Carbon Dioxide Anion Gap BUN Creatinine Estimated GFR (MDRD) Glucose Calcium Total Bilirubin AST ALT Alkaline Phosphatase Total Creatine Kinase CK-MB (CK-2) 46.6 H Troponin I 0.19 0.17 Total Protein Albumin Globulin Albumin/Globulin Ratio Lipase Urine Color Urine Clarity Urine pH Ur Specific [place] Urine Protein Urine Glucose (UA) Urine Ketones Urine Occult Blood Urine Nitrite Urine Bilirubin Urine Urobilinogen Ur Leukocyte Esterase Urine RBC Urine WBC Ur Squamous Epith Cells Urine Bacteria Ur Microscopic Review Urine Culture Comments Urine Opiates Screen Ur Oxycodone Screen Urine Methadone Screen Ur Propoxyphene Screen Ur Barbiturates Screen Phenytoin < 2.5 Ur Tricyclics Screen Ur Phencyclidine Scrn Ur Amphetamine Screen U Methamphetamines Scrn U Benzodiazepines Scrn Urine Cocaine Screen U Cannabinoids Screen Ethyl Alcohol - Rads (name of study) Head CT Radiology: EMP read contemporaneously (normal) PD MEDICAL DECISION MAKING - ED course ED course: 53-year-old woman with history of chronic ostium mellitus of the hip, seizure disorder, hypokalemia presents after presumed seizure at home and altered with modest right-sided deficits. Head CT negative. Found to have rhabdomyolysis, profound hypokalemia, hyponatremia, borderline troponin, and soft urinary tract infection. Potassium was repleted orally and IV. She was given IV fluids, loaded with IV Dilantin. Spoke with Dr. Patton for admission at 9:40 PM who requests a second troponin to make sure it is not rapidly trending up which is reasonable. - Critical Care Time(min): 40 Time Includes: Direct patient care, Review records, Reassess patient, Document care, Coordinate care, Medical consult, Family consult for tx dec Procedures included in critical care time: Peripheral IV Procedures excluded from critical care time: EKG Departure - Departure Disposition: 66 [facility] DC/Xfer Clinical Impression: Seizure, Seizure disorder, Hypokalemia, Rhabdomyolysis, Troponin level elevated Condition: Stable Discharge Date/Time: 09/14/18 23:51
[2018-09-14 20:23] LABS: MUDS CUTOFF CONCENTRATIONS CUTOFF CONC BELOW:
[2018-09-14 20:27] LABS: BILIRUBIN,URINE NEGATIVE (NEGATIVE); GLUCOSE, URINE (UA) NEGATIVE (NEGATIVE); KETONES,URINE (UA) TRACE mg/dL (NEGATIVE); LEUKOCYTE ESTERASE, URINE NEGATIVE (NEGATIVE); NITRITE,URINE NEGATIVE (NEGATIVE); OCCULT BLOOD,URINE LARGE (NEGATIVE); PH,URINE 7.5 PH (5.0-7.5); PROTEIN,URINE 100 mg/dL (NEGATIVE); UROBILINOGEN,URINE 0.2 (NORMAL) E.U./dL (NORMAL)
[2018-09-14 20:33] LABS: CLARITY,URINE SL. CLOUDY (CLEAR)
--- NOTE | 2018-09-14 20:33 | CT Report ---
Reason: stroke like sx Procedure Date: 09/14/2018 Accession Number: [id number] / [id number] Procedure: CT - Head W/O Stroke Protocol CPT Code: FULL RESULT: EXAM: CT HEAD EXAM DATE: 09/14/2018 08:11 PM. CLINICAL HISTORY: Acute stroke. COMPARISON: HEAD W/O 12/24/2017 9:08 AM. TECHNIQUE: Multiaxial CT images were obtained from the foramen magnum to the vertex. Reformats: Sagittal and coronal. IV contrast: None. In accordance with CT protocol optimization, one or more of the following dose reduction techniques were utilized for this exam: automated exposure control, adjustment of mA and/or KV based on patient size, or use of iterative reconstructive technique. FINDINGS: Parenchyma: No intraparenchymal hemorrhage. No evidence of mass, midline shift, or CT findings of acute infarction. Pablo-white differentiation is distinct. Extraaxial Spaces: Normal for age. No subdural or epidural collections identified. Ventricles: Normal in size and position. Sinuses and Orbits: Imaged paranasal sinuses, orbits, and mastoids show no significant abnormality. Bones: No evidence of fracture or calvarial defect. Other: None. IMPRESSION: No acute intracranial CT abnormality. RADIA
[2018-09-14] MEDS ORDERED: fentaNYL 25 MCG PATCH TOP STA (20:35)
[2018-09-14] MEDS ORDERED: HYDROmorphone 1 MG/ML CARPUJECT IVP STA (20:35)
[2018-09-14 20:38] LABS: BACTERIA,URINE Few /HPF (None Seen); SQUAMOUS EPITHELIAL CELL,UR RARE Squamous (<= Few)
[2018-09-14 20:39] LABS: AMPHETAMINE SCREEN,URINE NEGATIVE (NEGATIVE); BENZODIAZEPINES SCREEN, URINE NEGATIVE (NEGATIVE); COCAINE SCREEN URINE NEGATIVE (NEGATIVE); METHADONE SCREEN, URINE NEGATIVE (NEGATIVE); METHAMPHETAMINES SCREEN, URINE NEGATIVE (NEGATIVE); OPIATE SCREEN, URINE POSITIVE (NEGATIVE); OXYCODONE SCREEN, URINE POSITIVE (NEGATIVE); PROPOXYPHENE SCREEN, URINE NEGATIVE (NEGATIVE); TRICYCLIC ANTIDEPRESSANT,URINE NEGATIVE (NEGATIVE)
[2018-09-14 20:47] LABS: BASOPHILS # (AUTO) 0.1 10^3/uL (0.0-0.1); BASOPHILS % (AUTO) 0.5 %; HGB - HEMOGLOBIN 15.2 g/dL (12.0-16.0); LYMPHOCYTES # (AUTO) 3.2 10^3/uL (1.5-3.5); LYMPHOCYTES % (AUTO) 22.5 %; MEAN CORPUSCULAR HGB CONC 36.5 g/dL (32.0-36.0); MEAN CORPUSCULAR VOLUME 84.9 fL (81.0-99.0); MEAN PLATELET VOLUME 7.8 fL (7.9-10.8); MONOCYTES # (AUTO) 1.6 10^3/uL (0.0-1.0); MONOCYTES % (AUTO) 11.3 %; NEUTROPHILS # (AUTO) 9.2 10^3/uL (1.5-6.6); NEUTROPHILS % (AUTO) 65.7 %; PLT - PLATELET COUNT 398 10^3/uL (130-450); RED BLOOD COUNT 4.91 10^6/uL (4.20-5.40); RED CELL DISTRIBUTION WIDTH 13.7 % (12.0-15.0)
[2018-09-14 20:59] LABS: TROPONIN I 0.19 ng/mL (<0.49)
[2018-09-14 21:01] LABS: CREATINE KINASE MB 46.6 ng/mL (0.6-6.3)
[2018-09-14 21:20] LABS: ALBUMIN 4.4 g/dL (3.2-5.5); ALBUMIN/GLOBULIN RATIO 1.6 (1.0-2.2); ALKALINE PHOSPHATASE 103 IU/L (42-121); ALT ALANINE AMINOTRANSFERASE 27 IU/L (10-60); AST ASPARTATE AMINOTRANSFERASE 201 IU/L (10-42); BILIRUBIN,TOTAL 1.4 mg/dL (0.2-1.0); BUN - BLOOD UREA NITROGEN 10 mg/dL (6-20); CALCIUM 9.3 mg/dL (8.5-10.3); CARBON DIOXIDE - CO2 23 mmol/L (21-32); CHLORIDE 81 mmol/L (101-111); CREATININE 0.7 mg/dL (0.4-1.0); GFR - MDRD 88 (>89); GLUCOSE 131 mg/dL (70-100); LIPASE 45 U/L (22-51); SODIUM 123 mmol/L (135-145); TOTAL PROTEIN 7.2 g/dL (6.7-8.2)
[2018-09-14] MEDS ORDERED: POTASSIUM CHLOR 10 MEQ/100 ML 10 MEQ/100 ML BAG IV STA (21:20)
[2018-09-14] MEDS ORDERED: POTASSIUM CHLOR 10 MEQ/100 ML 10 MEQ/100 ML BAG IV ONE ×3 (21:21→23:50)
[2018-09-14] MEDS ORDERED: POTASSIUM BICARB 25 MEQ TABLET PO STA (21:21)
[2018-09-14 21:38] LABS: CK- CREATINE KINASE 9291 IU/L (22-269)
[2018-09-14] MEDS ORDERED: PHENYTOIN INJ 1,000 MG in SODIUM CHLORIDE 0.9% 100ML 100 ML IV STA (21:38)
[2018-09-14] MEDS ORDERED: LACTATED RINGERS 1,000 ML IV SCH (22:00)
[2018-09-14] MEDS ORDERED: ACETAMINOPHEN 325 MG TABLET PO PRN (22:36)
[2018-09-14] MEDS ORDERED: PROCHLORPERAZINE 10 MG/2 ML VIAL IVP PRN (22:36)
[2018-09-14] MEDS ORDERED: MORPHINE 2 MG/ML CARPUJECT IVP PRN (22:36)
[2018-09-14] MEDS ORDERED: [UNRECOGNIZED DRUG - OTHER] PO PRN (22:48)
[2018-09-14] MEDS ORDERED: ACETAMIN PO PRN (22:48)
[2018-09-14] MEDS ORDERED: CODEINE PO PRN (22:48)
[2018-09-14] MEDS ORDERED: MELATONIN 5 MG PO PRN (22:48)
[2018-09-14] MEDS ORDERED: BUTALBIT PO PRN (22:48)
[2018-09-14] MEDS ORDERED: CAFF PO PRN (22:48)
--- NOTE | 2018-09-14 23:35 | HISTORY & PHYSICAL EXAMINATION ---
Chief Complaint - Chief Complaint Chief Complaint: Change in mental status, weakness History of Present Illness - Admitted From Admitted From:: Emergency depart - History Obtained From Records Reviewed: Emergency department records, and previous hospital stays History obtained from: Patient, daughter, and ED physician Exam Limitations: Patient is mildly confused but is otherwise capable of providing a fairly a - History of Present Illness HPI Comment/Other: Patient is a 53-year-old female with an extensive past medical history consistent of chronic hypokalemia, chronic hyponatremia, seizure disorder, chronic hip osteomyelitis, recurrent urinary tract infections, hypertension, among other things who presents today after her daughter found her down when she went to check on her in her home today. Patient states that her last known normal status was yesterday evening, and for the 2 days prior to this she had had nausea and vomiting which is very common for her, and she had her first meal last night that she has had in the last few days. However, she does not recall waking up this morning, but at some point must have fallen or possibly had a seizure according to the patient, but does not recall this. When her daughter found her she was lying on the ground and she was in a confused or otherwise possibly post ictal state. The daughter does state that her current appearance, behavior, and mental status level is consistent with previous post ictal state. Patient was here last week seen for a urinary tract infection and was placed on Bactrim. She has frequent urinary tract infections. She also has frequent hypokalemia and had a potassium level less than 2, and was discharged prior to reaching a potassium level of 3. Her outpatient potassium was increased from 20 mEq/day to 80 mEq/day and chlorthalidone was discontinued, and she was recommended to follow-up with her PCP for labs. She is currently in the process of reestablishing with a new PCP and has not yet had a chance to have complete follow-up for this or workup on chronic hypokalemia. However, of note she did continue to take the potassium as well as the Bactrim, and now she is found to have a potassium level of 1.4 in the emergency room today. She has a sodium level of 123. She has a CK level over 9000, and a white blood cell count of 16,000 with no fevers. Her cardiac enzymes are slightly above normal but have started to trend downward in the emergency room and she has no acute EKG changes compared with her previous and she denies any chest pain or shortness of breath. She has no known cardiac history. With the exception of vague history of palpitations in intermittent irregular rhythm. Due to the patient's significant hypokalemia in the setting of acute mental status changes, as well as hyponatremia, elevated CK levels, and probable post ictal state, CT scan was done which was negative and after this was confirmed as well as a second troponin level demonstrating a downward trend, hospitalist service was asked to admit the patient for further workup and treatment. History - Past Medical History Cardiovascular: reports: Hypertension, High cholesterol Respiratory: reports: Asthma, Pneumonia Neuro: reports: Seizure disorder Endocrine/Autoimmune: reports: HyPOthyroidism, Systemic lupus erythematosus GI: reports: GERD, Ulcers, C.difficile PURCHASER: reports: Ovarian cancer : reports: Renal insuffiency, Nocturia, Frequency, Kidney stones HEENT: reports: None Psych: reports: Depression, Other Musculoskeletal: reports: Osteoarthritis, Osteoporosis, Fatigue, Chronic back pain Derm: reports: Other drug resistant infections, Psoriasis MRSA Hx?: Yes - Past Surgical History General: reports: Appendectomy Ortho: reports: Hip replacement, Spine surgery /PURCHASER: reports: 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, Oophrectomy - Family & Social History Family History: Mother: Alive and Well, Father: , CAD Family History Comment/Other: Mother is alive and well, with Lupus. Father from heart disease. The patient is an only child. Social History Notes: The patient has one daughter and her first when her daughter was 2 years old. The patient is legally from her 2nd . She is living with her daughter and her daughter's boyfriend in [place]. There are 2 dogs in the home, and the patient has one cat named Andrew. She no longer drives. 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 She was using a walker and and has been nonweightbearing on the left side since her surgeries. She can perform all of her daily ADLs, but very little house work. She denies ETOH, tobacco, or illicit drug use. She wishes to be a DNR. - Substance History Use: Uses substance without health or social issues: Opioid - POLST Patient has POLST: Yes POLST Status: DNR Meds/Allgy - Home Medications Home Medications: Ambulatory Orders Medication Instructions Recorded Confirmed Carvedilol [Coreg] 6.25 mg PO BID tablet 10/15/16 09/05/18 amLODIPine [Norvasc] 10 mg PO DAILY 01/23/17 09/14/18 Methocarbamol [Robaxin-750] 500 mg PO QID PRN 02/09/18 09/14/18 Omeprazole [PriLOSEC] 20 mg PO BID PRN 02/09/18 09/14/18 Oxycodone HCl/Acetaminophen 1 tab PO QID 02/09/18 09/14/18 [Oxycodone-Acetaminophen 5-325] Pregabalin [Lyrica] 100 mg PO TID 02/09/18 09/14/18 levETIRAcetam [Keppra] 500 mg PO BID 02/09/18 09/14/18 Butalbit/Acetamin/Caff/Codeine 1 cap PO TID PRN 02/10/18 09/05/18 [Kbijwe-Euys-Wpddkhrnpus-Codein] Phenytoin Sodium Extended 100 mg PO QPM 03/16/18 09/14/18 fentaNYL [Fentanyl 25mcg patch] 25 mcg TOP Q72H 09/05/18 09/14/18 Cetirizine [ZyrTEC] 10 mg PO DAILY 09/06/18 09/14/18 Melatonin 5 mg PO QPM PRN 09/06/18 09/14/18 Potassium Chloride [K-Dur] 40 meq PO DAILY #34 tablet 09/06/18 09/14/18 Prochlorperazine Supp [Compazine 25 mg DC TID PRN #30 supp 09/06/18 Supp] Magnesium Oxide [Magnesium] 500 mg PO DAILY 09/14/18 09/14/18 Ondansetron [Ondansetron Odt] 8 mg PO Q6HR PRN 09/14/18 09/14/18 Prochlorperazine Maleate 8 mg PO QID 09/14/18 09/14/18 [Compazine] diphenhydrAMINE [Benadryl] 50 mg PO QID 09/14/18 09/14/18 - Allergies Allergies/Adverse Reactions: Allergies Allergy/AdvReac Type Severity Reaction Status Date / Time Penicillins Allergy Severe Respiratory Verified 09/05/18 13:39 bacitracin Allergy Mild Hives Verified 09/05/18 13:39 [From Neosporin ([id number])] bacitracin zinc * Allergy Mild Itching Verified 09/05/18 13:39 [From Neosporin (juo-pgm-[id number])] neomycin sulfate * Allergy Mild Itching Verified 09/05/18 13:39 [From Neosporin (gfi-dyz-[id number])] venom-honey bee Allergy Unknown Verified 09/05/18 13:39 [bee venom (honey bee)] ciprofloxacin AdvReac Emesis Verified 09/05/18 13:39 Review of Systems - Constitutional Constitutional: reports: Fatigue, Malaise, Weakness, Poor appetite. denies: Fever, Chills - Cardiovascular Cariovascular: denies: Irregular heart rate, Palpitations, Chest pain, Lightheadedness, Syncope - Respiratory Respiratory: denies: Cough, Wheezing, SOB at rest, SOB with exertion - Gastrointestinal Gastrointestinal: reports: Diarrhea, Nausea, Vomiting. denies: Abdominal pain, Constipation, Change in bowel habits, Black stools - Genitourinary Genitourinary: reports: Hematuria, Other (Urinary hesitancy and retention). denies: Dysuria, Frequency, Urgency - Musculoskeletal Musculoskeletal: reports: Muscle pain, Back pain, Muscle aches, Joint pain - Integumentary Integumentary: denies: Rash - All Other Systems All Other Systems: reports: Reviewed and negative Prior Level of Functionality: Relatively independent Exam - Vital Signs Reviewed Vital Signs: Yes Vital Signs: Vital Signs x48h Temp Pulse Resp BP Pulse Ox 09/14/18 23:00 103 H 16 146/95 H 96 09/14/18 22:30 118 H 28 H 150/132 H 98 09/14/18 22:00 116 H 20 140/102 H 98 09/14/18 21:49 114 H 14 136/103 H 98 09/14/18 21:00 36.2 C L 102 H 16 111/79 98 09/14/18 20:44 104 H 19 150/119 H 97 09/14/18 20:32 105 H 16 97 09/14/18 18:20 36 C L 110 H 20 146/97 H 97 - Physical Exam General Appearance: positive: No acute distress Eyes Bilateral: positive: Normal inspection ENT: positive: ENT inspection nml Neck: positive: Nml inspection, Thyroid nml, No JVD Respiratory: positive: Chest non-tender, No respiratory distress, Breath sounds nml Cardiovascular: positive: No murmur, No gallop, Extrasystoles, Tachycardia Abdomen: positive: Non-tender, No organomegaly, Nml bowel sounds, No distention Skin: positive: Color nml, Dry Extremities: positive: Non-tender, Nml appearance, No pedal edema Neurologic/Psychiatric: positive: Oriented x3, Other (Patient had a delayed affect and speech but otherwise was well oriented. Though she was sometimes delayed in answering, she was able to answer most questions appropriately.) Sepsis Event Note (H) - Evaluation Current Stage of Sepsis: Ruled out Conclusion/Plan - Problem List (1) Altered mental state Conclusion/Plan: Patient has a mental status change that is consistent with a post ictal state. She does however of course have several other possible explanations for this including significant hyponatremia, severe hypokalemia, potentially polypharmacy with muscle relaxant, gabapentin, and opiate pain medications, as well as dehydration and poor nutritional status due to 2 days of nausea and vomiting in the setting of chronic nausea and vomiting. Having said that, I think the most reasonable explanation for this especially given the elevated CK level of 9000 is that she probably did have a seizure at home, Though she did not recall this. Seizure is likely to have been induced by a combination of factors including recent urinary tract infection, and severe hypokalemia (Possibly exacerbated by Bactrim), and dehydration from the persistent nausea and vomiting. Patient is receiving a loading dose of the Phenytoinin the emergency room and will Resume her home antiseizure medications. To avoid withdrawal, will continue opiate narcotics but will hold off on muscle relaxants overnight. We will try to avoid as needed oxycodone as much as possible. We will gently try to collect the electrolyte abnormalities, rechecking labs in the morning, with slow IV fluid hydration of 100 mL/h to correct the rhabdomyolysis to avoid over dilution and worsening the hyponatremia. Given that the head CT scan is normal and there is no focal neurological deficit, at this point I do not see an indication for an MRI. Qualifiers: Altered mental status type: disorientation Qualified Code(s): R41.0 - D isorientation, unspecified (2) Hypokalemia Conclusion/Plan: This is probably multifactorial. Certainly could be related to Bactrim, but it is unlikely this would have caused significant hypokalemia in isolation especially in a patient who is taking potassium replacement. However she does have a history of persistent nausea and vomiting, which means she is probably not absorbing much of the potassium supplementation that she was taking, and was furthermore having worsening of potassium loss by vomiting as well as diarrhea which she says is always exacerbated when she takes Bactrim. I will order a urine Electrolyte level to help further quantify and delineate source of hypo- natremia, however she may need to continue further workup with this in the outpatient setting. In the meantime, patient will be on electrolyte replacement. (3) Seizure Conclusion/Plan: As stated above, probably was not absorbing her medications due to the persistent nausea and vomiting which may be related to the chronic cyclical vomiting syndrome, which of course exacerbated the hypokalemia in addition to a probable seizure which itself would certainly be more likely in the setting of hypokalemia. Patient will be given IV phenytoin in the emergency room and maintained on oral medications. (4) Hyponatremia Conclusion/Plan: Possible hypovolemic hyponatremia secondary to persistent nausea and vomiting. Gentle IV fluid correction with normal saline with 20 mEq of potassium. Reche cking labs in the morning. (5) Chronic pain syndrome Conclusion/Plan: As stated above will hold back on as much medication that can cause sedation as possible with the exception of her fentanyl as this would precipitate withdrawal.She may benefit from a pharmacy consult prior to discharge. (6) Hypertension Conclusion/Plan: Continue home medication. Appears to be relatively well controlled for now Qualifiers: Hypertension type: essential hypertension Qualified Code(s): I10 - Essential (primary) hypertension (7) Rhabdomyolysis Conclusion/Plan: Probably secondary to prolonged immobilization after seizure as well as the seizure itself. We will follow-up labs in the morning. So far no evidence of renal dysfunction.Gentle IV fluid hydration at 100 mL/h due to the patient's hyponatremia. - Lab Results Lab results reviewed: Yes Carlos Bones: 09/14/18 20:38 09/14/18 20:38 - Diagnostic Imaging Results Diagnostic Imaging Results: positive: Final report reviewed - EKG Results EKG Interpreted Independently: Yes EKG Comparison: Unchanged from prior EKG Core Measures - Anticipated LOS I expect patient to be DC'd or transferred within 96 hours.: Yes - DVT/VTE - Prophylaxis VTE/DVT Device ordered at admit?: Yes
[2018-09-15] MEDS ORDERED: BUTALB/ACETAM/CAFF 50/325/40MG TABLET PO PRN (00:04)
[2018-09-15] MEDS: NS W/20 MEQ KCL 1,000 ML IV SCH ×2 (00:47→13:53)
[2018-09-15] MEDS ORDERED: POTASSIUM CHLOR 10 MEQ/100 ML 10 MEQ/100 ML BAG IV ONE ×2 (01:00→02:00)
[2018-09-15] MEDS: ONDANSETRON 4 MG/2 ML VIAL IVP PRN (01:06)
[2018-09-15] MEDS: SODIUM CHLORIDE FLUSH 0.9% 10 ML SYRINGE IVP SCH ×3 (01:07→17:41)
[2018-09-15 05:08] LABS: BASOPHILS # (AUTO) 0.1 10^3/uL (0.0-0.1); BASOPHILS % (AUTO) 0.5 %; EOSINOPHILS % (AUTO) 0.2 %; HGB - HEMOGLOBIN 13.8 g/dL (12.0-16.0); LYMPHOCYTES # (AUTO) 3.1 10^3/uL (1.5-3.5); LYMPHOCYTES % (AUTO) 27.2 %; MEAN CORPUSCULAR HEMOGLOBIN 29.4 pg (27.0-31.0); MEAN CORPUSCULAR HGB CONC 34.4 g/dL (32.0-36.0); MEAN CORPUSCULAR VOLUME 85.3 fL (81.0-99.0); MONOCYTES # (AUTO) 1.5 10^3/uL (0.0-1.0); MONOCYTES % (AUTO) 13.7 %; NEUTROPHILS # (AUTO) 6.6 10^3/uL (1.5-6.6); NEUTROPHILS % (AUTO) 58.4 %; PLT - PLATELET COUNT 372 10^3/uL (130-450); RED BLOOD COUNT 4.68 10^6/uL (4.20-5.40); RED CELL DISTRIBUTION WIDTH 13.8 % (12.0-15.0); WHITE BLOOD COUNT 11.3 x10^3/uL (4.8-10.8)
[2018-09-15 05:28] LABS: ALBUMIN/GLOBULIN RATIO 1.6 (1.0-2.2); ALKALINE PHOSPHATASE 90 IU/L (42-121); ALT ALANINE AMINOTRANSFERASE 27 IU/L (10-60); AST ASPARTATE AMINOTRANSFERASE 158 IU/L (10-42); BILIRUBIN,TOTAL 1.3 mg/dL (0.2-1.0); BUN - BLOOD UREA NITROGEN 7 mg/dL (6-20); CALCIUM 8.5 mg/dL (8.5-10.3); CARBON DIOXIDE - CO2 23 mmol/L (21-32); CHLORIDE 86 mmol/L (101-111); CREATININE 0.6 mg/dL (0.4-1.0); GFR - MDRD 105 (>89); GLUCOSE 130 mg/dL (70-100); MAGNESIUM 1.9 mg/dL (1.7-2.8); SODIUM 126 mmol/L (135-145); TOTAL PROTEIN 6.5 g/dL (6.7-8.2)
[2018-09-15 05:30] LABS: PHOSPHORUS < 1.0 mg/dL (2.5-4.6)
[2018-09-15] MEDS: SODIUM CHLORIDE FLUSH 0.9% 10 ML SYRINGE IVP PRN ×2 (05:34→16:54)
[2018-09-15] MEDS: PREGABALIN 100 MG CAPSULE PO SCH ×3 (06:22→21:27)
[2018-09-15] MEDS: POTASSIUM CHLOR 10 MEQ/100 ML 10 MEQ/100 ML BAG IV SCH ×10 (06:54→17:42)
[2018-09-15] MEDS: MAGNESIUM OXIDE 400 MG TABLET PO SCH (08:05)
[2018-09-15] MEDS: POTASSIUM PHOSPHATE 15 MMOL in SODIUM CHLORIDE 0.9% 250 ML IV SCH ×2 (08:38→12:46)
[2018-09-15] MEDS ORDERED: MAGNESIUM OXIDE 500 MG PO SCH (09:00)
[2018-09-15] MEDS ORDERED: FAMOTIDINE 20 MG/50 ML 50 ML IV SCH (09:00)
[2018-09-15] MEDS: CARVEDILOL 3.125 MG TABLET PO SCH ×2 (09:06→21:27)
[2018-09-15] MEDS: CETIRIZINE 10 MG TABLET PO SCH (09:09)
[2018-09-15] MEDS: amLODIPine 5 MG TABLET PO SCH (09:34)
[2018-09-15] MEDS: levETIRAcetam 250 MG TABLET PO SCH ×2 (09:50→21:27)
--- NOTE | 2018-09-15 11:58 | PROVIDER PROGRESS NOTE ---
Subjective - Prog Note Date Prog Note Date: 09/15/18 Prog Note Time: 12:03 - Subjective Pt reports feeling: Improved Subjective: she doesn't remember what happened. adamant she was compliant w meds except for when nausea and emesis returned. can't say if meds stayed down then. denies cp, sob. denies abd pain just achey abd wall muscles. (+) flatus Current Medications - Current Medications Current Medications: Active Medications Acetaminophen (Tylenol) 650 mg PO Q4HR PRN PRN Reason: Pain 1 to 4 Acetaminophen/Butalbital/Caffeine (Fioricet) 1 tab PO TID PRN PRN Reason: HEADACHE Hydrocodone Bitart/Acetaminophen (Notus 5/325) 1 tab PO Q4HR PRN PRN Reason: Pain 5 to 7 Amlodipine Besylate (Norvasc) 10 mg PO DAILY [facility] Last Admin: 09/15/18 09:34 Dose: 10 mg Carvedilol (Coreg) 6.25 mg PO BID [facility] Last Admin: 09/15/18 09:06 Dose: 6.25 mg Cetirizine HCl (Zyrtec) 10 mg PO DAILY [facility] Last Admin: 09/15/18 09:09 Dose: 10 mg Fentanyl (Duragesic) 1 patch TOP Q72H [facility] Famotidine (Pepcid 20 Mg/50 Ml) 50 mls @ 100 mls/hr IV BID [facility] Last Infusion: 09/15/18 09:48 Dose: Infused Potassium Chloride/Sodium Chloride (Normal Saline 0.9% W/20 Meq Kcl) 1,000 mls @ 75 mls/hr IV .[id number] [facility] Last Infusion: 09/15/18 10:00 Dose: 75 mls/hr Potassium Chloride (Potassium Chloride) 10 meq in 100 mls @ 100 mls/hr IV Q1H [facility]; Protocol Stop: 09/15/18 18:59 Last Infusion: 09/15/18 11:56 Dose: Infused Potassium Phosphate 15 mmol/ (Sodium Chloride) 255 mls @ 63 mls/hr IV Q4H [facility] Stop: 09/15/18 15:59 Last Infusion: 09/15/18 09:00 Dose: 63 mls/hr Levetiracetam (Keppra) 500 mg PO BID [facility] Last Admin: 09/15/18 09:50 Dose: 500 mg Magnesium Oxide (Mag Ox) 400 mg PO DAILYWM [facility] Last Admin: 09/15/18 08:05 Dose: 400 mg Morphine Sulfate (Morphine (Carpuject)) 2 mg IVP Q2HR PRN PRN Reason: Pain 8 to 10 Last Admin: 09/15/18 01:06 Dose: 2 mg Ondansetron HCl (Zofran Inj) 4 mg IVP Q6HR PRN PRN Reason: Nausea / Vomiting Last Admin: 09/15/18 01:06 Dose: 4 mg Melatonin [Melatonin (] 5 Mg Tab) 1 each PO QPM PRN PRN Reason: Insomnia Phenytoin Sodium (Dilantin) 100 mg PO QPM [facility] Pregabalin (Lyrica) 100 mg PO TID [facility] Last Admin: 09/15/18 06:22 Dose: 100 mg Prochlorperazine Edisylate (Compazine Inj) 10 mg IVP Q6HR PRN PRN Reason: Nausea / Vomiting Last Admin: 09/15/18 05:34 Dose: 10 mg Sodium Chloride (Normal Saline Flush 0.9%) 10 ml IVP 0100,0900,1700 [facility] Last Admin: 09/15/18 09:36 Dose: Not Given Sodium Chloride (Normal Saline Flush 0.9%) 10 ml IVP PRN PRN PRN Reason: NEEDED PER PROVIDER ORDERS Last Admin: 09/15/18 05:34 Dose: 10 ml Methocarbamol [Robaxin-750] 500 mg PO QID PRN 02/09/18 Omeprazole [PriLOSEC] 20 mg PO BID PRN 02/09/18 Oxycodone HCl/Acetaminophen [Oxycodone-Acetaminophen 5-325] 1 tab PO QID PRN 02/09/18 Pregabalin [Lyrica] 100 mg PO TID 02/09/18 levETIRAcetam [Keppra] 500 mg PO BID 02/09/18 Butalbit/Acetamin/Caff/Codeine [Afjefl-Uesz-Tjvszjlhybh-Codein] 2 cap PO TID PRN 02/10/18 Phenytoin Sodium Extended 100 mg PO QPM 03/16/18 fentaNYL [Fentanyl 25mcg patch] 25 mcg TOP Q72H 09/05/18 Cetirizine [ZyrTEC] 10 mg PO DAILY 09/06/18 Melatonin 5 mg PO QPM PRN 09/06/18 Magnesium Oxide [Magnesium] 500 mg PO DAILY 09/14/18 Ondansetron [Ondansetron Odt] 8 mg PO Q6HR PRN 09/14/18 Prochlorperazine Maleate [Compazine] 8 mg PO QID 09/14/18 diphenhydrAMINE [Benadryl] 50 mg PO QID 09/14/18 Objective - Vital Signs/Intake & Output Reviewed Vital Signs: Yes Vital Signs: Vital Signs Temp Pulse Resp BP Pulse Ox 09/15/18 11:00 108 H 15 114/86 H 99 09/15/18 10:00 105 H 16 119/80 96 09/15/18 09:00 103 H 15 125/73 98 09/15/18 08:00 36.7 C 97 16 113/74 97 Intake & Output: Intake & Output 09/12/18 09/13/18 09/14/18 09/15/18 23:59 23:59 23:59 23:59 Intake Total 100 2854.35 Output Total 1300 Balance 100 1554.35 - Objective General Appearance: positive: No acute distress, Other (Short stature, pale, tremulous white female who looks older than stated age) Eyes Bilateral: positive: PERRL, EOMI ENT: positive: Pharynx nml Neck: positive: No JVD. negative: Stiff neck, Carotid bruit Respiratory: positive: Chest non-tender. negative: Wheezes, Rales, Rhonchi Cardiovascular: positive: Regular rate & rhythm. negative: Gallop/S4, Friction rub Abdomen: positive: No organomegaly, Nml bowel sounds, Other (mild distension and abd wall aches w palpation. ? muscle aches from emesis) Skin: positive: Warm, Dry, Pallor. negative: Diaphoresis Extremities: positive: Non-tender, No pedal edema, Other (keeps on wriggling toes and plantar/dorsiflexing feet as a nervous habit) Neurologic/Psychiatric: positive: Oriented x3, CN's nml (2-12), Motor nml - Lab Results Fish Bones: 09/15/18 04:30 09/15/18 04:30 Other Labs: Lab Results x24hrs 09/15/18 09/15/18 09/15/18 Range/Units 04:30 04:30 04:30 WBC (4.8-10.8) x10^3/uL RBC (4.20-5.40) 10^6/uL Hgb (12.0-16.0) g/dL Hct (37.0-47.0) % MCV (81.0-99.0) fL MCH (27.0-31.0) pg MCHC (32.0-36.0) g/dL RDW (12.0-15.0) % Plt Count (130-450) 10^3/uL MPV (7.9-10.8) fL Neut # (Auto) (1.5-6.6) 10^3/uL Lymph # (Auto) (1.5-3.5) 10^3/uL [place] # (Auto) (0.0-1.0) 10^3/uL Eos # (Auto) (0.0-0.7) 10^3/uL Baso # (Auto) (0.0-0.1) 10^3/uL Absolute Nucleated RBC x10^3/uL Nucleated RBC % /100WBC Sodium 126 L (135-145) mmol/L Potassium 1.8 L* (3.5-5.0) mmol/L Chloride 86 L (101-111) mmol/L Carbon Dioxide 23 (21-32) mmol/L Anion Gap 17.0 H (6-13) BUN 7 (6-20) mg/dL Creatinine 0.6 (0.4-1.0) mg/dL Estimated GFR (MDRD) 105 (>89) Glucose 130 H (70-100) mg/dL Calcium 8.5 (8.5-10.3) mg/dL Phosphorus < 1.0 L* (2.5-4.6) mg/dL Magnesium 1.9 (1.7-2.8) mg/dL Total Bilirubin 1.3 H (0.2-1.0) mg/dL AST 158 H (10-42) IU/L ALT 27 (10-60) IU/L Alkaline Phosphatase 90 (42-121) IU/L Total Creatine Kinase 61 (22-269) IU/L CK-MB (CK-2) (0.6-6.3) ng/mL Troponin I 0.18 (<0.49) ng/mL Total Protein 6.5 L (6.7-8.2) g/dL Albumin 4.0 (3.2-5.5) g/dL Globulin 2.5 (2.1-4.2) g/dL Albumin/Globulin Ratio 1.6 (1.0-2.2) Lipase (22-51) U/L Urine Color Urine Clarity (CLEAR) Urine pH (5.0-7.5) PH Ur Specific [place] (1.002-1.030) Urine Protein (NEGATIVE) mg/dL Urine Glucose (UA) (NEGATIVE) mg/dL Urine Ketones (NEGATIVE) mg/dL Urine Occult Blood (NEGATIVE) Urine Nitrite (NEGATIVE) Urine Bilirubin (NEGATIVE) Urine Urobilinogen (NORMAL) E.U./dL Ur Leukocyte Esterase (NEGATIVE) Urine RBC (0-5) /HPF Urine WBC (0-5) /HPF Ur Squamous Epith Cells (<= Few) Urine Bacteria (None Seen) /HPF Ur Microscopic Review Urine Culture Comments Urine Opiates Screen (NEGATIVE) Ur Oxycodone Screen (NEGATIVE) Urine Methadone Screen (NEGATIVE) Ur Propoxyphene Screen (NEGATIVE) Ur Barbiturates Screen (NEGATIVE) Phenytoin ug/mL Ur Tricyclics Screen (NEGATIVE) Ur Phencyclidine Scrn (NEGATIVE) Ur Amphetamine Screen (NEGATIVE) U Methamphetamines Scrn (NEGATIVE) U Benzodiazepines Scrn (NEGATIVE) Urine Cocaine Screen (NEGATIVE) U Cannabinoids Screen (NEGATIVE) Ethyl Alcohol mg/dL 09/15/18 09/14/18 09/14/18 Range/Units 04:30 22:12 20:38 WBC 11.3 H (4.8-10.8) x10^3/uL RBC 4.68 (4.20-5.40) 10^6/uL Hgb 13.8 (12.0-16.0) g/dL Hct 39.9 (37.0-47.0) % MCV 85.3 (81.0-99.0) fL MCH 29.4 (27.0-31.0) pg MCHC 34.4 (32.0-36.0) g/dL RDW 13.8 (12.0-15.0) % Plt Count 372 (130-450) 10^3/uL MPV 8.0 (7.9-10.8) fL Neut # (Auto) 6.6 (1.5-6.6) 10^3/uL Lymph # (Auto) 3.1 (1.5-3.5) 10^3/uL [place] # (Auto) 1.5 H (0.0-1.0) 10^3/uL Eos # (Auto) 0.0 (0.0-0.7) 10^3/uL Baso # (Auto) 0.1 (0.0-0.1) 10^3/uL Absolute Nucleated RBC 0.01 x10^3/uL Nucleated RBC % 0.1 /100WBC Sodium (135-145) mmol/L Potassium (3.5-5.0) mmol/L Chloride (101-111) mmol/L Carbon Dioxide (21-32) mmol/L Anion Gap (6-13) BUN (6-20) mg/dL Creatinine (0.4-1.0) mg/dL Estimated GFR (MDRD) (>89) Glucose (70-100) mg/dL Calcium (8.5-10.3) mg/dL Phosphorus (2.5-4.6) mg/dL Magnesium (1.7-2.8) mg/dL Total Bilirubin (0.2-1.0) mg/dL AST (10-42) IU/L ALT (10-60) IU/L Alkaline Phosphatase (42-121) IU/L Total Creatine Kinase (22-269) IU/L CK-MB (CK-2) (0.6-6.3) ng/mL Troponin I 0.17 (<0.49) ng/mL Total Protein (6.7-8.2) g/dL Albumin (3.2-5.5) g/dL Globulin (2.1-4.2) g/dL Albumin/Globulin Ratio (1.0-2.2) Lipase (22-51) U/L Urine Color Urine Clarity (CLEAR) Urine pH (5.0-7.5) PH Ur Specific [place] (1.002-1.030) Urine Protein (NEGATIVE) mg/dL Urine Glucose (UA) (NEGATIVE) mg/dL Urine Ketones (NEGATIVE) mg/dL Urine Occult Blood (NEGATIVE) Urine Nitrite (NEGATIVE) Urine Bilirubin (NEGATIVE) Urine Urobilinogen (NORMAL) E.U./dL Ur Leukocyte Esterase (NEGATIVE) Urine RBC (0-5) /HPF Urine WBC (0-5) /HPF Ur Squamous Epith Cells (<= Few) Urine Bacteria (None Seen) /HPF Ur Microscopic Review Urine Culture Comments Urine Opiates Screen (NEGATIVE) Ur Oxycodone Screen (NEGATIVE) Urine Methadone Screen (NEGATIVE) Ur Propoxyphene Screen (NEGATIVE) Ur Barbiturates Screen (NEGATIVE) Phenytoin < 2.5 ug/mL Ur Tricyclics Screen (NEGATIVE) Ur Phencyclidine Scrn (NEGATIVE) Ur Amphetamine Screen (NEGATIVE) U Methamphetamines Scrn (NEGATIVE) U Benzodiazepines Scrn (NEGATIVE) Urine Cocaine Screen (NEGATIVE) U Cannabinoids Screen (NEGATIVE) Ethyl Alcohol mg/dL 09/14/18 09/14/18 09/14/18 Range/Units 20:38 20:38 20:38 WBC 14.0 H (4.8-10.8) x10^3/uL RBC 4.91 (4.20-5.40) 10^6/uL Hgb 15.2 (12.0-16.0) g/dL Hct 41.7 (37.0-47.0) % MCV 84.9 (81.0-99.0) fL MCH 31.0 (27.0-31.0) pg MCHC 36.5 H (32.0-36.0) g/dL RDW 13.7 (12.0-15.0) % Plt Count 398 (130-450) 10^3/uL MPV 7.8 L (7.9-10.8) fL Neut # (Auto) 9.2 H (1.5-6.6) 10^3/uL Lymph # (Auto) 3.2 (1.5-3.5) 10^3/uL [place] # (Auto) 1.6 H (0.0-1.0) 10^3/uL Eos # (Auto) 0.0 (0.0-0.7) 10^3/uL Baso # (Auto) 0.1 (0.0-0.1) 10^3/uL Absolute Nucleated RBC 0.01 x10^3/uL Nucleated RBC % 0.1 /100WBC Sodium 123 L (135-145) mmol/L Potassium < 1.5 L* (3.5-5.0) mmol/L Chloride 81 L (101-111) mmol/L Carbon Dioxide 23 (21-32) mmol/L Anion Gap 19.0 H (6-13) BUN 10 (6-20) mg/dL Creatinine 0.7 (0.4-1.0) mg/dL Estimated GFR (MDRD) 88 L (>89) Glucose 131 H (70-100) mg/dL Calcium 9.3 (8.5-10.3) mg/dL Phosphorus (2.5-4.6) mg/dL Magnesium (1.7-2.8) mg/dL Total Bilirubin 1.4 H (0.2-1.0) mg/dL AST 201 H (10-42) IU/L ALT 27 (10-60) IU/L Alkaline Phosphatase 103 (42-121) IU/L Total Creatine Kinase 9291 H* (22-269) IU/L CK-MB (CK-2) 46.6 H (0.6-6.3) ng/mL Troponin I 0.19 (<0.49) ng/mL Total Protein 7.2 (6.7-8.2) g/dL Albumin 4.4 (3.2-5.5) g/dL Globulin 2.8 (2.1-4.2) g/dL Albumin/Globulin Ratio 1.6 (1.0-2.2) Lipase 45 (22-51) U/L Urine Color Urine Clarity (CLEAR) Urine pH (5.0-7.5) PH Ur Specific [place] (1.002-1.030) Urine Protein (NEGATIVE) mg/dL Urine Glucose (UA) (NEGATIVE) mg/dL Urine Ketones (NEGATIVE) mg/dL Urine Occult Blood (NEGATIVE) Urine Nitrite (NEGATIVE) Urine Bilirubin (NEGATIVE) Urine Urobilinogen (NORMAL) E.U./dL Ur Leukocyte Esterase (NEGATIVE) Urine RBC (0-5) /HPF Urine WBC (0-5) /HPF Ur Squamous Epith Cells (<= Few) Urine Bacteria (None Seen) /HPF Ur Microscopic Review Urine Culture Comments Urine Opiates Screen (NEGATIVE) Ur Oxycodone Screen (NEGATIVE) Urine Methadone Screen (NEGATIVE) Ur Propoxyphene Screen (NEGATIVE) Ur Barbiturates Screen (NEGATIVE) Phenytoin ug/mL Ur Tricyclics Screen (NEGATIVE) Ur Phencyclidine Scrn (NEGATIVE) Ur Amphetamine Screen (NEGATIVE) U Methamphetamines Scrn (NEGATIVE) U Benzodiazepines Scrn (NEGATIVE) Urine Cocaine Screen (NEGATIVE) U Cannabinoids Screen (NEGATIVE) Ethyl Alcohol < 5.0 mg/dL 09/14/18 Range/Units 20:15 WBC (4.8-10.8) x10^3/uL RBC (4.20-5.40) 10^6/uL Hgb (12.0-16.0) g/dL Hct (37.0-47.0) % MCV (81.0-99.0) fL MCH (27.0-31.0) pg MCHC (32.0-36.0) g/dL RDW (12.0-15.0) % Plt Count (130-450) 10^3/uL MPV (7.9-10.8) fL Neut # (Auto) (1.5-6.6) 10^3/uL Lymph # (Auto) (1.5-3.5) 10^3/uL [place] # (Auto) (0.0-1.0) 10^3/uL Eos # (Auto) (0.0-0.7) 10^3/uL Baso # (Auto) (0.0-0.1) 10^3/uL Absolute Nucleated RBC x10^3/uL Nucleated RBC % /100WBC Sodium (135-145) mmol/L Potassium (3.5-5.0) mmol/L Chloride (101-111) mmol/L Carbon Dioxide (21-32) mmol/L Anion Gap (6-13) BUN (6-20) mg/dL Creatinine (0.4-1.0) mg/dL Estimated GFR (MDRD) (>89) Glucose (70-100) mg/dL Calcium (8.5-10.3) mg/dL Phosphorus (2.5-4.6) mg/dL Magnesium (1.7-2.8) mg/dL Total Bilirubin (0.2-1.0) mg/dL AST (10-42) IU/L ALT (10-60) IU/L Alkaline Phosphatase (42-121) IU/L Total Creatine Kinase (22-269) IU/L CK-MB (CK-2) (0.6-6.3) ng/mL Troponin I (<0.49) ng/mL Total Protein (6.7-8.2) g/dL Albumin (3.2-5.5) g/dL Globulin (2.1-4.2) g/dL Albumin/Globulin Ratio (1.0-2.2) Lipase (22-51) U/L Urine Color YELLOW Urine Clarity SL. CLOUDY (CLEAR) Urine pH 7.5 (5.0-7.5) PH Ur Specific [place] 1.020 (1.002-1.030) Urine Protein 100 H (NEGATIVE) mg/dL Urine Glucose (UA) NEGATIVE (NEGATIVE) mg/dL Urine Ketones TRACE (NEGATIVE) mg/dL Urine Occult Blood LARGE H (NEGATIVE) Urine Nitrite NEGATIVE (NEGATIVE) Urine Bilirubin NEGATIVE (NEGATIVE) Urine Urobilinogen 0.2 (NORMAL) (NORMAL) E.U./dL Ur Leukocyte Esterase NEGATIVE (NEGATIVE) Urine RBC 11-25 H (0-5) /HPF Urine WBC 6-10 H (0-5) /HPF Ur Squamous Epith Cells RARE Squamous (<= Few) Urine Bacteria Few (None Seen) /HPF Ur Microscopic Review INDICATED Urine Culture Comments INDICATED Urine Opiates Screen POSITIVE H (NEGATIVE) Ur Oxycodone Screen POSITIVE H (NEGATIVE) Urine Methadone Screen NEGATIVE (NEGATIVE) Ur Propoxyphene Screen NEGATIVE (NEGATIVE) Ur Barbiturates Screen POSITIVE H (NEGATIVE) Phenytoin ug/mL Ur Tricyclics Screen NEGATIVE (NEGATIVE) Ur Phencyclidine Scrn NEGATIVE (NEGATIVE) Ur Amphetamine Screen NEGATIVE (NEGATIVE) U Methamphetamines Scrn NEGATIVE (NEGATIVE) U Benzodiazepines Scrn NEGATIVE (NEGATIVE) Urine Cocaine Screen NEGATIVE (NEGATIVE) U Cannabinoids Screen NEGATIVE (NEGATIVE) Ethyl Alcohol mg/dL Sepsis Event Note (H) - Evaluation Current Stage of Sepsis: Ruled out Assessment/Plan - Problem List (1) Altered mental state Impression: This was on admission:Patient has a mental status change that is consistent with a post ictal state. She does however of course have several other possible explanations for this including significant hyponatremia, severe hypokalemia, potentially polypharmacy with muscle relaxant, gabapentin, and opiate pain medications, as well as dehydration and poor nutritional status due to 2 days of nausea and vomiting in the setting of chronic nausea and vomiting. Having said that, I think the most reasonable explanation for this especially given the elevated CK level of 9000 is that she probably did have a seizure at home, Though she did not recall this. Seizure is likely to have been induced by a combination of factors including recent urinary tract infection, and severe hypokalemia (Possibly exacerbated by Bactrim), and dehydration from the persistent nausea and vomiting. Patient is receiving a loading dose of the Phenytoinin the emergency room and will Resume her home antiseizure medications. To avoid withdrawal, will continue opiate narcotics but will hold off on muscle relaxants overnight. We will try to avoid as needed oxycodone as much as possible. We will gently try to collect the electrolyte abnormalities, rechecking labs in the morning, with slow IV fluid hydration of 100 mL/h to correct the rhabdomyolysis to avoid over dilution and worsening the hyponatremia. Given that the head CT scan is normal and there is no focal neurological deficit, at this point I do not see an indication for an MRI. 09/15 today: she is awake, weak and shakey but appropriate. Can't remember what happened. Oriented to person, place but not time. Continue to treat all of her issues with expectation she will return to baseline. Qualifiers: Altered mental status type: disorientation Qualified Code(s): R41.0 - Disorientation, unspecified (2) Hypokalemia Conclusion/Plan: This is probably multifactorial. Certainly could be related to Bactrim, but it is unlikely this would have caused significant hypokalemia in isolation especially in a patient who is taking potassium replacement. However she does have a history of persistent nausea and vomiting, which means she is probably not absorbing much of the potassium supplementation that she was taking, and was furthermore having worsening of potassium loss by vomiting as well as diarrhea which she says is always exacerbated when she takes Bactrim. Urine Electrolyte level to help further quantify and delineate source of hypo-natremia ordered but they are send out labs. Will continue with electrolyte replacement. Even with 30 meq still not at even 2 for K. Continue to replae that as well as Ca, Mag, Phos. (3) Seizure Conclusion/Plan: As stated above, probably was not absorbing her medications due to the persi stent nausea and vomiting which may be related to the chronic cyclical vomiting syndrome, which of course exacerbated the hypokalemia in addition to a probable seizure which itself would certainly be more likely in the setting of hypokalemia. Patient was given IV phenytoin in the emergency room and maintained on oral medications. (4) Hyponatremia Conclusion/Plan: Possible hypovolemic hyponatremia secondary to persistent nausea and vomiting. Gentle IV fluid correction with normal saline with 20 mEq of potassium. Na 123>126 today. Continue tx. (5) Chronic pain syndrome Conclusion/Plan: As stated above will hold back on as much medication that can cause sedation as possible with the exception of her fentanyl as this would precipitate withdrawal. She may benefit from a pharmacy consult prior to discharge. (6) Hypertension Conclusion/Plan: Continue home medication. Appears to be relatively well controlled for now Qualifiers: Hypertension type: essential hypertension Qualified Code(s): I10 - Essential (primary) hypertension (7) Rhabdomyolysis Conclusion/Plan: Resolved. Probably secondary to prolonged immobilization after seizure as well as the seizure itself. So far no evidence of renal dysfunction. Gentle IV fluid hydration at 100 mL/h due to the patient's hyponatremia. CPK 9291>61 today. Qualifiers: Qualified Code(s): R41.0 - Disorientation, unspecified
[2018-09-15 16:16] LABS: MAGNESIUM 1.8 mg/dL (1.7-2.8)
[2018-09-15 16:37] LABS: POTASSIUM,URINE 17.4 mmol/L
[2018-09-15] MEDS: HYDROcod/ACETAM 5/325 MG TABLET PO PRN (19:02)
[2018-09-15 20:06] LABS: MAGNESIUM 1.8 mg/dL (1.7-2.8); PHOSPHORUS 1.4 mg/dL (2.5-4.6)
[2018-09-15] MEDS: NITROFURANTOIN MACRO 100 MG CAPSULE PO SCH (21:27)
[2018-09-15] MEDS: PHENYTOIN ER 100 MG CAPSULE PO SCH (21:27)
[2018-09-15] MEDS ORDERED: POTASSIUM CHLORIDE 20 MEQ TABLET PO ONE (22:49)
[2018-09-15] MEDS ORDERED: POTASSIUM PHOSPHATE 21 MMOL in SODIUM CHLORIDE 0.9% 250 ML IV ONE (23:15)
[2018-09-16] MEDS: NS W/20 MEQ KCL 1,000 ML IV SCH ×3 (03:00→22:26)
[2018-09-16] MEDS: HYDROcod/ACETAM 5/325 MG TABLET PO PRN ×4 (03:02→22:25)
[2018-09-16] MEDS: SODIUM CHLORIDE FLUSH 0.9% 10 ML SYRINGE IVP SCH ×4 (04:44→22:54)
[2018-09-16 04:57] LABS: MAGNESIUM 1.9 mg/dL (1.7-2.8); PHOSPHORUS 2.8 mg/dL (2.5-4.6)
[2018-09-16] MEDS: PREGABALIN 100 MG CAPSULE PO SCH ×3 (06:18→21:14)
[2018-09-16] MEDS: POTASSIUM CHLORIDE 20 MEQ TABLET PO SCH ×2 (06:18→10:58)
--- NOTE | 2018-09-16 07:39 | PROVIDER PROGRESS NOTE ---
Subjective - Prog Note Date Prog Note Date: 09/16/18 Prog Note Time: 13:07 - Subjective Pt reports feeling: Improved Subjective: She feels better with regards to nausea, vomiting. She has had no seizures. But she is really scared that she will have another seizure since this last one seemed to come "out of nowhere". We have explained to her several times that it is not so much that it came out of "nowhere" it was because she was vomiting her medications and probably was not getting any absorption. She also has had no diarrhea. We are puzzled by the fact that her potassium continues to be low. We managed to get her potassium up to 4.2 yesterday after 980 mEq of K riders as well as p.o. supplementation and riders from the emergency room. Then last night at 7:00 her potassium dropped to 3.1, and she was given oral potassium. In spite of that this morning she is 2.9. I have restarted potassium riders but she is n ot happy with that. Her veins are getting harder to access, and it does not matter how slow the rider is, it shelton. She is now had 2 blown IVs and had to start the third 1, and it still shelton and she does not want to do potassium riders. But she is not able to take enough p.o. potassium to bring her levels. White blood count is slightly low at 11.3. Urine culture has no reportable results. She grew out Citrobacter with her last culture this last few weeks and I looked at those 7 sensitivities. Current Medications - Current Medications Current Medications: Active Medications Acetaminophen (Tylenol) 650 mg PO Q4HR PRN PRN Reason: Pain 1 to 4 Acetaminophen/Butalbital/Caffeine (Fioricet) 1 tab PO TID PRN PRN Reason: HEADACHE Hydrocodone Bitart/Acetaminophen ([place] 5/325) 1 tab PO Q4HR PRN PRN Reason: Pain 5 to 7 Last Admin: 09/16/18 03:02 Dose: 1 tab Amlodipine Besylate (Norvasc) 10 mg PO DAILY [facility] Last Admin: 09/15/18 09:34 Dose: 10 mg Carvedilol (Coreg) 6.25 mg PO BID [facility] Last Admin: 09/15/18 21:27 Dose: 6.25 mg Cetirizine HCl (Zyrtec) 10 mg PO DAILY [facility] Last Admin: 09/15/18 09:09 Dose: 10 mg Fentanyl (Duragesic) 1 patch TOP Q72H [facility] Potassium Chloride/Sodium Chloride (Normal Saline 0.9% W/20 Meq Kcl) 1,000 mls @ 75 mls/hr IV .[id number] [facility] Last Admin: 09/16/18 03:00 Dose: 75 mls/hr Potassium Chloride (Potassium Chloride) 10 meq in 100 mls @ 100 mls/hr IV Q1H [facility] Stop: 09/16/18 15:59 Levetiracetam (Keppra) 500 mg PO BID [facility] Last Admin: 09/15/18 21:27 Dose: 500 mg Magnesium Oxide (Mag Ox) 400 mg PO DAILYWM [facility] Last Admin: 09/15/18 08:05 Dose: 400 mg Morphine Sulfate (Morphine (Carpuject)) 2 mg IVP Q2HR PRN PRN Reason: Pain 8 to 10 Last Admin: 09/15/18 01:06 Dose: 2 mg Nitrofurantoin (Macrobid) 100 mg PO BID [facility] Last Admin: 09/15/18 21:27 Dose: 100 mg Ondansetron HCl (Zofran Inj) 4 mg IVP Q6HR PRN PRN Reason: Nausea / Vomiting Last Admin: 09/15/18 01:06 Dose: 4 mg Melatonin [Melatonin (] 5 Mg Tab) 1 each PO QPM PRN PRN Reason: Insomnia Phenytoin Sodium (Dilantin) 100 mg PO QPM [facility] Last Admin: 09/15/18 21:27 Dose: 100 mg Potassium Chloride (K-Dur) 40 meq PO Q4H [facility]; Protocol Stop: 09/16/18 10:01 Last Admin: 09/16/18 06:18 Dose: 40 meq Pregabalin (Lyrica) 100 mg PO TID [facility] Last Admin: 09/16/18 06:18 Dose: 100 mg Prochlorperazine Edisylate (Compazine Inj) 10 mg IVP Q6HR PRN PRN Reason: Nausea / Vomiting Last Admin: 09/15/18 05:34 Dose: 10 mg Sodium Chloride (Normal Saline Flush 0.9%) 10 ml IVP 0100,0900,1700 [facility] Last Admin: 09/16/18 04:44 Dose: Not Given Sodium Chloride (Normal Saline Flush 0.9%) 10 ml IVP PRN PRN PRN Reason: NEEDED PER PROVIDER ORDERS Last Admin: 09/15/18 16:54 Dose: 10 ml Methocarbamol [Robaxin-750] 500 mg PO QID PRN 02/09/18 Omeprazole [PriLOSEC] 20 mg PO BID PRN 02/09/18 Oxycodone HCl/Acetaminophen [Oxycodone-Acetaminophen 5-325] 1 tab PO QID PRN 02/09/18 Pregabalin [Lyrica] 100 mg PO TID 02/09/18 levETIRAcetam [Keppra] 500 mg PO BID 02/09/18 Butalbit/Acetamin/Caff/Codeine [Xiskxc-Bqbj-Hpoayijmvqq-Codein] 2 cap PO TID PRN 02/10/18 Phenytoin Sodium Extended 100 mg PO QPM 03/16/18 fentaNYL [Fentanyl 25mcg patch] 25 mcg TOP Q72H 09/05/18 Cetirizine [ZyrTEC] 10 mg PO DAILY 09/06/18 Melatonin 5 mg PO QPM PRN 09/06/18 Magnesium Oxide [Magnesium] 500 mg PO DAILY 09/14/18 Ondansetron [Ondansetron Odt] 8 mg PO Q6HR PRN 09/14/18 Prochlorperazine Maleate [Compazine] 8 mg PO QID 09/14/18 diphenhydrAMINE [Benadryl] 50 mg PO QID 09/14/18 Objective - Vital Signs/Intake & Output Reviewed Vital Signs: Yes Vital Signs: Vital Signs Temp Pulse Resp BP BP Pulse Ox 09/16/18 07:00 75 15 101/61 100 09/16/18 06:16 80 17 131/85 H 100 09/16/18 05:00 74 15 109/72 100 09/16/18 04:00 36.6 C 80 18 115/91 H 100 Intake & Output: Intake & Output 09/13/18 09/14/18 09/15/18 09/16/18 23:59 23:59 23:59 23:59 Intake Total 100 6001.25 2882 Output Total 2130 2650 Balance 100 3871.25 232 - Objective General Appearance: positive: No acute distress, Alert, Other (Tremulousness from yesterday has resolved. She is alert, oriented, and appropriate.) Eyes Bilateral: positive: PERRL ENT: positive: Pharynx nml Neck: positive: No JVD. negative: Stiff neck, Carotid bruit Respiratory: positive: Chest non-tender. negative: Wheezes, Rales, Rhonchi Cardiovascular: positive: Regular rate & rhythm. negative: Gallop/S4, Friction rub Abdomen: positive: Non-tender, No organomegaly, Nml bowel sounds, No distention Skin: positive: Warm, Dry, Pallor Extremities: positive: No pedal edema Neurologic/Psychiatric: positive: Oriented x3, CN's nml (2-12), Motor nml - Lab Results Fish Bones: 09/15/18 04:30 09/16/18 04:05 Other Labs: Lab Results x24hrs 09/16/18 09/15/18 09/15/18 Range/Units 04:05 19:37 16:29 Potassium 2.9 L 3.1 L (3.5-5.0) mmol/L Phosphorus 2.8 1.4 L (2.5-4.6) mg/dL Magnesium 1.9 1.8 (1.7-2.8) mg/dL Total Creatine Kinase (22-269) IU/L Urine Sodium 33.0 mmol/L Urine Potassium 17.4 mmol/L 09/15/18 09/15/18 Range/Units 15:54 04:30 Potassium 4.2 (3.5-5.0) mmol/L Phosphorus 5.0 H (2.5-4.6) mg/dL Magnesium 1.8 (1.7-2.8) mg/dL Total Creatine Kinase 61 (22-269) IU/L Urine Sodium mmol/L Urine Potassium mmol/L Sepsis Event Note (H) - Evaluation Current Stage of Sepsis: Ruled out Assessment/Plan - Problem List (1) Hypokalemia Impression: This is probably multifactorial. Certainly could be related to Bactrim, but it is unlikely this would have caused significant hyperkalemia in isolation especially in a patient who is taking potassium replacement. However she does have a history of persistent nausea and vomiting, which means she is probably not absorbing much of the potassium supplementation that she was taking, and was furthermore having worsening of potassium loss by vomiting as well as diarrhea which she says is always exacerbated when she takes Bactrim. Laboratory Tests 09/15/18 16:29 Urine Sodium 33.0 Urine Potassium 17.4 She came up to >4 yesterday after 90 meq, but this am continues to drop again so will resume K riders. i will call nephrology for opinion about what may be diagnosis for this anya patient. I will also call anesthesia for a consult to see if they can put in a PICC line for access. I would think that she would have the PICC line even in the outpatient setting for use until she has her hip replacement. (2) Altered mental state Impression: Resolved This was on admission:Patient has a mental status change that is consistent with a post ictal state. She does however of course have several other possible explanations for this including significant hyponatremia, severe hypokalemia, potentially polypharmacy with muscle relaxant, gabapentin, and opiate pain medications, as well as dehydration and poor nutritional status due to 2 days of nausea and vomiting in the setting of chronic nausea and vomiting. Having said that, I think the most reasonable explanation for this especially given the elevated CK level of 9000 is that she probably did have a seizure at home, Though she did not recall this. Seizure is likely to have been induced by a combination of factors including recent urinary tract infection, and severe hypokalemia (Possibly exacerbated by Bactrim), and dehydration from the persistent nausea and vomiting. Patient is receiving a loading dose of the Phenytoinin the emergency room and will Resume her home antiseizure medications. To avoid withdrawal, will continue opiate narcotics but will hold off on muscle relaxants overnight. We will try to avoid as needed oxycodone as much as possible. We will gently try to collect the electrolyte abnormalities, rechecking labs in the morning, with slow IV fluid hydration of 100 mL/h to correct the rhabdomyolysis to avoid over dilution and worsening the hyponatremia. Given that the head CT scan is normal and there is no focal neurological deficit, at this point I do not see an indication for an MRI. 09/15: she is awake, weak and shakey but appropriate. Can't remember what happened. Oriented to person, place but not time. Continue to treat all of her issues with expectation she will return to baseline. 09/16: continues to be alert, oriented Qualifiers: Altered mental status type: disorientation Qualified Code(s): R41.0 - Disorientation, unspecified (3) Seizure Conclusion/Plan: As stated above, probably was not absorbing her medications due to the persistent nausea and vomiting which may be related to the chronic cyclical vomiting syndrome, which of course exacerbated the hypokalemia in addition to a probable seizure which itself would certainly be more likely in the setting of hypokalemia. Patient was given IV phenytoin in the emergency room and maintained on oral medications. So far no further recurrence of seizures (4) Hyponatremia Conclusion/Plan: Possible hypovolemic hyponatremia secondary to persistent nausea and vomiting. Gentle IV fluid correction with normal saline with 20 mEq of potassium. Na 123>126>132 today. Continue tx. (5) Chronic pain syndrome Conclusion/Plan: As stated above will hold back on as much medication that can cause sedation as possible with the exception of her fentanyl as this would precipitate withdrawal. She may benefit from a pharmacy consult prior to discharge. (6) Hypertension Conclusion/Plan: Continue home medication. Appears to be relatively well controlled for now In the facility service manager hours of this morning, blood pressure was 109-115 systolic. 72-91 diastolic. Right now 101/61. Qualifiers: Hypertension type: essential hypertension Qualified Code(s): I10 - Essential (primary) hypertension (7) Rhabdomyolysis Conclusion/Plan: Resolved. Probably secondary to prolonged immobilization after seizure as well as the seizure itself. So far no evidence of renal dysfunction. Gentle IV fluid hydration at 100 mL/h due to the patient's hyponatremia. CPK 9291>61 on 09/15. Qualifiers: Qualified Code(s): R41.0 - Disorientation, unspecified Qualifiers: Qualified Code(s): R41.0 - Disorientation, unspecified
[2018-09-16 08:13] LABS: CALCIUM 7.9 mg/dL (8.5-10.3); CREATININE 0.5 mg/dL (0.4-1.0)
[2018-09-16] MEDS: MAGNESIUM OXIDE 400 MG TABLET PO SCH (09:09)
[2018-09-16] MEDS: CARVEDILOL 3.125 MG TABLET PO SCH ×2 (09:10→21:16)
[2018-09-16] MEDS: NITROFURANTOIN MACRO 100 MG CAPSULE PO SCH ×2 (09:11→21:15)
[2018-09-16] MEDS: amLODIPine 5 MG TABLET PO SCH (09:24)
[2018-09-16] MEDS: levETIRAcetam 250 MG TABLET PO SCH ×2 (10:51→21:15)
[2018-09-16] MEDS: CETIRIZINE 10 MG TABLET PO SCH (10:54)
[2018-09-16] MEDS: POTASSIUM CHLOR 10 MEQ/100 ML 10 MEQ/100 ML BAG IV SCH ×3 (10:55→20:08)
[2018-09-16] MEDS: ONDANSETRON 4 MG/2 ML VIAL IVP PRN (11:07)
[2018-09-16] MEDS ORDERED: SODIUM CHLORIDE FLUSH 0.9% 10 ML SYRINGE IVP PRN (18:48)
[2018-09-16] MEDS: POTASSIUM CHLOR 20 MEQ/100 ML 20 MEQ/100 ML BAG IV SCH ×3 (19:56→22:25)
--- NOTE | 2018-09-16 20:16 | XRAY Report ---
Reason: PICC line placement Procedure Date: 09/16/2018 Accession Number: [id number] / [id number] Procedure: XR - Chest for Line Placement CPT Code: FULL RESULT: EXAM: CHEST RADIOGRAPHY EXAM DATE: 09/16/2018 06:31 PM. CLINICAL HISTORY: PICC line placement. COMPARISON: CHEST 2 VIEW 02/09/2018 2:38 PM. TECHNIQUE: 1 view. FINDINGS: 3 images are submitted. One demonstrates the PICC line extending beyond the inferior margin of the film. One image demonstrates axillary positioning of the PICC. A final image demonstrates subclavian positioning of the PICC. No evidence of lobar infiltrate or effusion. No pneumothorax. IMPRESSION: 3 images are submitted. One demonstrates the PICC line extending beyond the inferior margin of the film. One image demonstrates axillary positioning of the PICC. A third image demonstrates subclavian positioning of the PICC. [facility]
[2018-09-16] MEDS: PHENYTOIN ER 100 MG CAPSULE PO SCH (21:15)
[2018-09-16] MEDS: METHOCARBAMOL 500 MG TABLET PO PRN (22:52)
[2018-09-17] MEDS: HYDROcod/ACETAM 5/325 MG TABLET PO PRN ×5 (02:14→21:12)
[2018-09-17] MEDS: METHOCARBAMOL 500 MG TABLET PO PRN ×2 (04:21→14:48)
[2018-09-17 05:03] LABS: CALCIUM 7.5 mg/dL (8.5-10.3); CREATININE 0.3 mg/dL (0.4-1.0)
[2018-09-17] MEDS: PREGABALIN 100 MG CAPSULE PO SCH ×3 (05:57→23:02)
[2018-09-17] MEDS: POTASSIUM CHLORIDE 20 MEQ TABLET PO SCH ×3 (08:11→17:26)
[2018-09-17] MEDS: MAGNESIUM OXIDE 400 MG TABLET PO SCH (08:11)
[2018-09-17] MEDS: levETIRAcetam 250 MG TABLET PO SCH ×2 (08:34→21:13)
[2018-09-17] MEDS: CARVEDILOL 3.125 MG TABLET PO SCH ×2 (08:40→21:12)
[2018-09-17] MEDS: amLODIPine 5 MG TABLET PO SCH (08:40)
[2018-09-17] MEDS: SODIUM CHLORIDE FLUSH 0.9% 10 ML SYRINGE IVP PRN ×4 (08:45→17:34)
[2018-09-17] MEDS: CETIRIZINE 10 MG TABLET PO SCH (08:45)
[2018-09-17] MEDS: NITROFURANTOIN MACRO 100 MG CAPSULE PO SCH ×2 (08:45→21:12)
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
[2018-09-17] MEDS: SODIUM CHLORIDE FLUSH 0.9% 10 ML SYRINGE IVP SCH ×2 (09:55→17:26)
[2018-09-17] MEDS ORDERED: fentaNYL 25 MCG PATCH TOP SCH (12:00)
[2018-09-17] MEDS: ONDANSETRON 4 MG/2 ML VIAL IVP PRN (17:34)
[2018-09-17] MEDS: PHENYTOIN ER 100 MG CAPSULE PO SCH (21:13)
[2018-09-18] MEDS: SODIUM CHLORIDE FLUSH 0.9% 10 ML SYRINGE IVP SCH ×3 (02:56→10:30)
[2018-09-18 05:50] LABS: CALCIUM 8.7 mg/dL (8.5-10.3); CREATININE 0.4 mg/dL (0.4-1.0)
[2018-09-18] MEDS: PREGABALIN 100 MG CAPSULE PO SCH (06:18)
[2018-09-18] MEDS: HYDROcod/ACETAM 5/325 MG TABLET PO PRN (06:18)
[2018-09-18] MEDS ORDERED: POTASSIUM CHLORIDE 20 MEQ TABLET PO SCH (08:00)
[2018-09-18] MEDS: MAGNESIUM OXIDE 400 MG TABLET PO SCH (08:17)
--- NOTE | 2018-09-18 08:41 | Discharge Plan ---
Discharge Plan Disposition: Home, Self Care Condition: Good Prescriptions: Amlodipine Besylate [Norvasc] 10 mg PO DAILY #30 tablet Nitrofurantoin [Macrobid] 100 mg PO BID #10 capsule Potassium Chloride [K-Dur] 40 meq PO BIDWM #60 tablet Diet: Regular Activity Restrictions: Activity as Tolerated Shower Restrictions: No Driving Restrictions: Yes (no driving) Assistance Devices: Wheelchair, Walker Weight Bearing: No Weight (left leg) Additional Instructions or Follow Up instructions: You were admitted because of severely low potassium as well as being found unconscious in your home. In reviewing your medical record you have had a few episodes of being found unconscious at home. Some have been attributed to po ssible seizures, some have been attributed to medication overuse. At this time we think you may have had a seizure because you are not absorbing your medicines correctly. 1 of the medicines you are not absorbing is your potassium. You required quite a bit of supplementation to get your potassium, magnesium, and phosphorus normal. Yesterday evening you stayed normal and this morning you have been normal with those levels. I did speak to the kidney specialist who saw you in 2014. He is very interested in following up with you. He said that their office had called you several times to follow-up with you in 2014 but there was never any response from you. They are willing to see you in their offices in [place] or 1 of those doctors comes here to the [facility] as well. He agrees that we start a potassium infusion once a week to prevent you from having low potassium again. In addition to the low potassium, we found you to have another urinary tract infection and started you on nitrofurantoin since this bacteria is sensitive to that antibiotic. You only need to take 5 more days of treatment. You also have a new PICC line. During your stay it was very difficult to access your veins and you are anticipating needing potassium infusions as well as prolonged IV antibiotics in October when you get your new hip repair. The line was not able to be advanced all the way forward so we are calling it a midline central access. The nurses here have instructed you how to keep this clean and dry. Be as sterile as possible with this since this can be a source of infection if not carefully taking care of. Please see your primary care provider, Dr. Jin in the next week. Follow-Up Care: [facility] No Smoking: If you smoke, Please STOP! Call for help. Follow-up with: Quiana Jin DO [Physician No Access] - Gaby Simms MD [Provider Admit Priv/Credential] -
[2018-09-18] MEDS: CETIRIZINE 10 MG TABLET PO SCH (09:12)
[2018-09-18] MEDS: NITROFURANTOIN MACRO 100 MG CAPSULE PO SCH (09:12)
[2018-09-18] MEDS: CARVEDILOL 3.125 MG TABLET PO SCH (09:13)
[2018-09-18] MEDS: levETIRAcetam 250 MG TABLET PO SCH (09:13)
[2018-09-18] MEDS: amLODIPine 5 MG TABLET PO SCH (09:13)
[2018-09-18 10:59] VITALS: BP 116/85
--- NOTE | 2018-09-18 14:29 | DISCHARGE SUMMARY ---
Physician: Tangela Thomson MD DATE OF ADMISSION: 09/14/2018 DATE OF DISCHARGE: 09/18/2018 DISCHARGE DIAGNOSES 1. Postictal encephalopathy. 2. Rhabdomyolysis. 3. Seizure disorder. 4. Hypokalemia, significant. 5. Hyponatremia. 6. Hypertension. 7. Chronic pain disorder. 8. Recurrent nausea and vomiting. 9. History of chronic kidney disease. DISCHARGE MEDICATIONS 1. Zofran 8 mg tablet every 6 hours as needed for nausea. 2. Butalbital with acetaminophen, caffeine, and codeine tablet, 2 capsules three times a day as needed. 3. Cetirizine 10 mg daily. 4. Benadryl 50 mg four times a day as needed. 5. Fentanyl patch 25 mcg every 72 hours. 6. Keppra 500 mg b.i.d. 7. Magnesium 500 mg daily. 8. Melatonin 5 mg q. p.m. p.r.n. 9. Prilosec 20 mg p.o. b.i.d. 10. Oxycodone with acetaminophen 5/325 mg 1 tablet four times a day as needed. 11. Dilantin 100 mg in the evening. 12. Lyrica 100 mg t.i.d. 13. Compazine 8 mg p.o. q.i.d. p.r.n. 14. Coreg 6.25 mg p.o. b.i.d. New prescriptions: 1. Norvasc 10 mg p.o. daily. 2. Macrobid 100 mg p.o. b.i.d. 3. K-Dur 40 mEq p.o. b.i.d. 4. Compazine 25 mg per rectum t.i.d. p.r.n. nausea. PRINCIPAL PROCEDURES 1. Head CT done for metabolic encephalopathy without any acute intracranial abnormalities. 2. Chest x-ray done after PICC line placement, demonstrating subclavian position of the PICC line. No acute cardiopulmonary infiltrate. 3. Catheterized urine culture with no reportable results. 4. PICC line placement 09/16/2018. HOSPITAL COURSE: The patient is a 53-year-old female who has had multiple abdominal, hip, and spinal problems in her life and is now on chronic disability with a chronic pain syndrome. She also has a seizure disorder as a residual of a brain bleed years ago. Her opiate prescriptions are managed in [place], and she is under a pain contract with them. She has been admitted several times to our institution, centering around recurrent nausea and vomiting, and hypokalemia. Initially it was thought to be from small bowel obstructions from multiple abdominal surgeries and adhesions, but CAT scans have never documented small bowel obstructions. An upper GI with small bowel follow-through, in January 2017, has been negative. Her recurrent nausea and vomiting episodes were also associated with C. difficile in 2014, but C. difficile has not been confirmed since then. Although she has had multiple, multiple admissions for infection, pyelonephritis, her admissions for recurrent nausea and vomiting are first quarter 2014, April 2015, May 2015, August 2015, January 2017. A second admission a week later, admission again 02/19/2017 (third time for that month) to [facility] for nausea and vomiting associated with overmedication, July 2017, October 2017, February 2018, and most recently 09/06/2018. Each of these hospitalizations is associated with a history of nausea and vomiting, unable to keep her medication down, and severe hypokalemia. One of her episodes was associated with possible opioid overuse with unconsciousness and apnea in January 2017. After her nausea and vomiting admission for 09/06/2018, she says that she was compliant with her medications. While she has chronic nausea, she was not having flagrant emesis. With this admission, she was found down by her daughter again. There was no witnessed fall, no witnessed seizure. She was in normal status the day before admission. The patient herself does not recall waking up on the morning of admission, but at some point must have fallen or possibly had a seizure, but does not remember any of this. Her daughter found her lying on the ground, confused, lethargic, slurred speech, with emesis around her. She was brought to the emergency room. It was noted that she had a UTI and placed on Bactrim the week before. It was also noted that she has frequent hypokalemia. Chlorthalidone was stopped with her last admission. It was recommended that she establish herself with a new PCP because she was in the point of transitioning from her [place] PCP to the [facility], but had not done so yet. In the emergency room she was a little confused, but normotensive, afebrile. Potassium level was 1.4. Sodium was 123, CK was over 9000, white cell count was over 16,000. Her initial troponin was 0.19, and her second troponin was 0.17. She has a history of atypical chest pain, but has had to treadmill tests in the past; one was March 2016, and the other one was December 2016. Echocardiogram was done December 2016, and normal. HOSPITAL COURSE: The patient was felt to be postictal from a seizure disorder. She had episodes of nausea and vomiting and does not really remember if her pills came up with that or not, but she is adamant that she is compliant with the use of her medications. In the past, some of her confusion and lethargy with admissions were associated with overuse of her medications. She is a chronic pain syndrome with opioid habituation, but she is under a strict contract and is adamant she has not overused her medications. She was treated as rhabdomyolysis, and had prompt resolution of her CPK to normal. She was admitted as [id number], was down to 61 the next day. Troponins continued to trend downward and she was 0.18. Potassium supplementation was problematic. She started at less than 1.5 potassium, and we were able to get her up to 4.2 in 24 hours with IV supplementation. But even with IV supplementation and p.o. supplementation, she dropped back down to 3.2, 2.9, and was finally back up to 3.8 two days later. I spoke to her water team leader that had seen her in 2014 when she had an episode of acute renal failure with a presumptive diagnosis of chronic kidney disease. In looking at her record, and recognizing that she has been hypokalemic for probably four years, he has postulated that she may have either primary hyperaldosteronism or she has tubular damage from multiple nephrotoxic drugs, hypotension, and frequent urinary tract infections, and a urologic procedure. I was postulating that she may need IV supplementation on a regular basis to keep at her at baseline, and he was in agreement with that. By now the patient's IV have blown several times and she needed multiple IV access sticks. She asked for a PICC line. In looking down the road, needing IV potassium supplementation, and possibly six weeks of IV antibiotic therapy for a new hip in a patient with chronic osteomyelitis, it seemed reasonable to give her a PICC line for the indefinite future. A PICC line was attempted, but could not be advanced beyond the subclavian and it would turn into her jugular vein with multiple attempts. Anesthesia opted to just keep it in the subclavian and be used as a midline. Her hyponatremia and hypokalemia resolved. She had no further seizures during her stay. Nausea was minimal and no further episodes of vomiting or diarrhea. Toxicology screen on admission was positive for opiates, oxycodone and barbiturates compatible with her previous medication use. Ethyl alcohol was less than 5 and Dilantin level was low at less than 2.5, and she was IV loaded before resuming her usual oral dose. Urinalysis had red cells, white cells, squamous cells, bacteria. She was treated as a presumptive UTI on the basis of her previous cultures from last week, and discharged on nitrofurantoin for five more days. Urine sodium was done and was 33, urine potassium was done and was 17.4. She is discharged to followup with the [facility] on 09/20/2018 to get a 40 mEq rider potassium. She has been asked to please followup with her primary care provider that she still has, Quiana Jin in [place]. She has been asked to make an appointment with Dr. Nieves Simms, Nephrology. He does come to the [facility] once a month. If she had to see him in [place], she is willing to do so. She wants to make sure that all of her medical problems are controlled and managed before she has the revision hip surgery 11/17/[address] [facility]. During her stay, she asked me to send a letter to her pain clinic to verify that she was here and that she missed her appointment with him not because of noncompliance, but because of illness. That was sent. DISCHARGE PHYSICAL EXAMINATION: VITAL SIGNS: She is discharged in stable condition with a temperature of 36.6, pulse 86, blood pressure 118/76, respirations 15, 100% on room air. GENERAL APPEARANCE: She is a short statured, mildly overweight female at 5 feet 1 inch tall, 72.8 kg weight. Well-nourished, well-developed. NECK: Supple. LUNGS: Clear to auscultation and percussion as she sits upright, eating 100% of her breakfast. HEART: PMI is normally placed with a regular rate and rhythm. ABDOMEN: Soft, nondistended. Normal bowel sounds. EXTREMITIES: Only trace edema around the ankles. When she stands, she is weightbearing on her right leg, and avoids weightbearing on the left leg, which has the embedded hip pest control applicator. She walks with a walker. Greater than 30 minutes was spent coordinating discharge. TD: 09/18/2018 11:10 [place]
== END 2018-09-18 11:00 | disposition home or self-care (01) | DRG 101 ==
LOC: EDUNIT# → ED 18:20 → ICU 22:36
PROVIDERS: ADMIT Family Medicine Sports Medicine; ATTEND Specialist
DX: G40.909 Epilepsy, unspecified, not intractable, without status epilepticus (principal); E87.1 Hypo-osmolality and hyponatremia; N39.0 Urinary tract infection, site not specified; M86.68 Other chronic osteomyelitis, other site; G93.49 Other encephalopathy; M32.9 Systemic lupus erythematosus, unspecified; E87.6 Hypokalemia; E78.00 Pure hypercholesterolemia, unspecified; J45.909 Unspecified asthma, uncomplicated; E03.9 Hypothyroidism, unspecified; K21.9 Gastro-esophageal reflux disease without esophagitis; N28.9 Disorder of kidney and ureter, unspecified; Z85.43 Personal history of malignant neoplasm of ovary; R35.1 Nocturia; R35.0 Frequency of micturition; Z87.442 Personal history of urinary calculi; F32.9 Major depressive disorder, single episode, unspecified; M19.90 Unspecified osteoarthritis, unspecified site; G89.29 Other chronic pain; M81.0 Age-related osteoporosis without current pathological fracture; M54.9 Dorsalgia, unspecified; L40.9 Psoriasis, unspecified; Z90.49 Acquired absence of other specified parts of digestive tract; Z96.649 Presence of unspecified artificial hip joint; Z90.710 Acquired absence of both cervix and uterus; Z90.721 Acquired absence of ovaries, unilateral; I12.9 Hypertensive chronic kidney disease with stage 1 through stage 4 chronic kidney disease, or unspecified chronic kidney disease; N18.9 Chronic kidney disease, unspecified; R11.2 Nausea with vomiting, unspecified; G89.4 Chronic pain syndrome; R41.82 Altered mental status, unspecified; Z87.891 Personal history of nicotine dependence; E78.5 Hyperlipidemia, unspecified; Z66 Do not resuscitate
CPT/HCPCS: 36415; 51701; 70450; 71045; 80048; 80053; 80185; 80306; 80320; 81001; 81003; 82550; 82553; 83690; 83735; 84100; 84132; 84133; 84300; 84484; 85025; 87086; 87150; 93005; 96365; 96375; 99284; 99285; 99291

== ENCOUNTER 2018-10-11 08:00 | Outpatient (CLI) | payer MEDICAID, MEDICARE ==
[2018-10-11 11:48] LABS: HGB - HEMOGLOBIN 12.7 g/dL (12.0-16.0); MEAN CORPUSCULAR HEMOGLOBIN 29.9 pg (27.0-31.0); MEAN CORPUSCULAR VOLUME 87.9 fL (81.0-99.0); RED BLOOD COUNT 4.26 10^6/uL (4.20-5.40); RED CELL DISTRIBUTION WIDTH 13.6 % (12.0-15.0); WHITE BLOOD COUNT 7.6 x10^3/uL (4.8-10.8)
[2018-10-11 11:58] LABS: CALCIUM 9.2 mg/dL (8.5-10.3)
[2018-10-11 16:03] LABS: CREATININE,URINE 80.5 mg/dL; PROTEIN/CREATININE RATIO,URINE 0.1 (<=0.2)
== END 2018-10-11 23:59 | disposition home or self-care (01) ==
LOC: LAB.R 08:00
PROVIDERS: ATTEND Internal Medicine Nephrology
DX: N05.9 Unspecified nephritic syndrome with unspecified morphologic changes (principal); D70.9 Neutropenia, unspecified; D63.1 Anemia in chronic kidney disease
CPT/HCPCS: 80048; 82570; 84156; 85027

== ENCOUNTER 2018-10-25 08:00 | Outpatient (CLI) | payer MEDICARE, MEDICAID ==
[2018-10-25 15:44] LABS: CALCIUM 9.4 mg/dL (8.5-10.3)
[2018-10-25 18:54] LABS: ALBUMIN 4.2 g/dL (3.2-5.5); ALBUMIN/GLOBULIN RATIO 1.4 (1.0-2.2); BILIRUBIN,TOTAL 0.5 mg/dL (0.2-1.0); CREATININE 0.8 mg/dL (0.4-1.0); TOTAL PROTEIN 7.3 g/dL (6.7-8.2)
== END 2018-10-25 23:59 | disposition home or self-care (01) ==
LOC: LAB.R 08:00
PROVIDERS: ATTEND Orthopaedic Surgery
DX: Z01.818 Encounter for other preprocedural examination (principal); R68.89 Other general symptoms and signs
CPT/HCPCS: 80053

== ENCOUNTER 2018-11-05 15:15 | Emergency (ER) | payer MEDICARE, MEDICAID ==
[2018-11-05 15:57] LABS: BASOPHILS % (AUTO) 0.2 %; HGB - HEMOGLOBIN 13.6 g/dL (12.0-16.0); LYMPHOCYTES % (AUTO) 10.5 %; MEAN CORPUSCULAR HEMOGLOBIN 29.3 pg (27.0-31.0); MEAN CORPUSCULAR HGB CONC 34.1 g/dL (32.0-36.0); MEAN CORPUSCULAR VOLUME 85.7 fL (81.0-99.0); MEAN PLATELET VOLUME 7.9 fL (7.9-10.8); MONOCYTES # (AUTO) 0.6 10^3/uL (0.0-1.0); NEUTROPHILS % (AUTO) 83.3 %; PLT - PLATELET COUNT 453 10^3/uL (130-450); RED BLOOD COUNT 4.64 10^6/uL (4.20-5.40); RED CELL DISTRIBUTION WIDTH 13.4 % (12.0-15.0); WHITE BLOOD COUNT 9.7 x10^3/uL (4.8-10.8)
[2018-11-05 16:18] LABS: ALBUMIN 5.1 g/dL (3.2-5.5); ALBUMIN/GLOBULIN RATIO 1.8 (1.0-2.2); BILIRUBIN,TOTAL 0.9 mg/dL (0.2-1.0); CALCIUM 9.8 mg/dL (8.5-10.3); CREATININE 0.5 mg/dL (0.4-1.0)
[2018-11-05] MEDS ORDERED: POTASSIUM CHLOR 10 MEQ/100 ML 10 MEQ/100 ML BAG IV ONE ×2 (16:47→16:48)
[2018-11-05] MEDS ORDERED: LACTATED RINGERS 2,000 ML IV STA (16:47)
[2018-11-05] MEDS ORDERED: ONDANSETRON 4 MG/2 ML VIAL IVP STA (16:47)
[2018-11-05] MEDS ORDERED: HYDROmorphone 1 MG/ML CARPUJECT IVP STA ×2 (16:47→19:13)
--- NOTE | 2018-11-05 16:49 | ED Physician Documentation ---
PD HPI ABD PAIN - Stated complaint Stated Complaint: VOMITING/R FLANK PX - Chief complaint Chief Complaint: Abd Pain - History obtained from History obtained from: Patient - History of Present Illness Timing - onset: Other (53-year-old woman with recurrent severe hypokalemia and history of kidney stones status post lithotripsy but not in several years presents with severe right flank pain for the last 2 days associated with vomiting. She has not been able to keep her meds down including her potassium. There is no diarrhea. No abdominal pain. No fevers or urinary complaints specifically.) Review of Systems Ten Systems: 10 systems reviewed and negative Constitutional: denies: Fever, Chills GI: reports: Nausea, Vomiting. denies: Abdominal Pain : denies: Dysuria, Frequency, Hesitancy PD PAST MEDICAL HISTORY - Past Medical History Cardiovascular: Hypertension, High cholesterol Respiratory: Asthma, Pneumonia Neuro: Seizure disorder Endocrine/Autoimmune: HyPOthyroidism, Systemic lupus erythematosus GI: GERD, Ulcers, C.difficile CHECKER AND PACKER: Ovarian cancer : Renal insuffiency, Nocturia, Frequency, Kidney stones HEENT: None Psych: Depression, Other Musculoskeletal: Osteoarthritis, Osteoporosis, Fatigue, Chronic back pain Derm: Other drug resistant infections, Psoriasis - Past Surgical History Past Surgical History: Yes General: Appendectomy Ortho: Hip replacement, Spine surgery /CHECKER AND PACKER: 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, Oophrectomy - Present Medications Home Medications: Ambulatory Orders Medication Instructions Recorded Confirmed Carvedilol [Coreg] 6.25 mg PO BID tablet 10/15/16 09/20/18 Omeprazole [PriLOSEC] 20 mg PO BID PRN 02/09/18 09/20/18 Oxycodone HCl/Acetaminophen 1 tab PO QID PRN 02/09/18 09/20/18 [Oxycodone-Acetaminophen 5-325] Pregabalin [Lyrica] 100 mg PO TID 02/09/18 09/20/18 levETIRAcetam [Keppra] 500 mg PO BID 02/09/18 09/20/18 Butalbit/Acetamin/Caff/Codeine 2 cap PO TID PRN 02/10/18 09/20/18 [Tyyidd-Qmzv-Ziniffexong-Codein] Phenytoin Sodium Extended 100 mg PO QPM 03/16/18 09/20/18 fentaNYL [Fentanyl 25mcg patch] 25 mcg TOP Q72H 09/05/18 09/20/18 Cetirizine [ZyrTEC] 10 mg PO DAILY 09/06/18 09/20/18 Melatonin 5 mg PO QPM PRN 09/06/18 09/20/18 Prochlorperazine Supp [Compazine 25 mg [place] TID PRN #30 supp 09/06/18 09/20/18 Supp] Magnesium Oxide [Magnesium] 500 mg PO DAILY 09/14/18 09/20/18 Ondansetron [Ondansetron Odt] 8 mg PO Q6HR PRN 09/14/18 09/20/18 Prochlorperazine Maleate 8 mg PO QID PRN 09/14/18 09/20/18 [Compazine] diphenhydrAMINE [Benadryl] 50 mg PO QID PRN 09/14/18 09/20/18 Amlodipine Besylate [Norvasc] 10 mg PO DAILY #30 tablet 09/18/18 09/20/18 Nitrofurantoin [Macrobid] 100 mg PO BID #10 capsule 09/18/18 09/20/18 Potassium Chloride [K-Dur] 40 meq PO BIDWM #60 tablet 09/18/18 09/20/18 Methocarbamol 750 mg PO QID PRN 09/20/18 09/20/18 Prochlorperazine Maleate 10 mg PO QID PRN #20 tablet 11/05/18 [Compazine] - Allergies Allergies/Adverse Reactions: Allergies Allergy/AdvReac Type Severity Reaction Status Date / Time Penicillins Allergy Severe Respiratory Verified 11/05/18 15:22 bacitracin Allergy Mild Hives Verified 11/05/18 15:22 [From Neosporin ([id number])] bacitracin zinc * Allergy Mild Itching Verified 11/05/18 15:22 [From Neosporin ([id number])] neomycin sulfate * Allergy Mild Itching Verified 11/05/18 15:22 [From Neosporin ([id number])] venom-honey bee Allergy Unknown Verified 11/05/18 15:22 [bee venom (honey bee)] ciprofloxacin AdvReac Emesis Verified 11/05/18 15:22 - Social History Does the pt smoke?: No Smoking Status: Never smoker Does the pt drink ETOH?: No Does the pt have substance abuse?: No - Immunizations Immunizations are current?: Yes - POLST Patient has POLST: Yes POLST Status: DNR PD ED PE NORMAL - Vitals Vital signs reviewed: Yes - General General: Alert and oriented X 3, Other (Uncomfortable) - HEENT HEENT: Pharynx benign, Other (Dry mucous membranes) - Neck Neck: Supple, no meningeal sign, No bony TTP - Cardiac Cardiac: RRR, No murmur - Respiratory Respiratory: No respiratory distress, Clear bilaterally - Abdomen Abdomen: Soft, Non tender - Back Back: Other (Tender to the right CVA) - Derm Derm: Normal color, Warm and dry - Extremities Extremities: No edema, No calf tenderness / cord - Neuro Neuro: Alert and oriented X 3, Normal speech Results - Vitals Vitals: Vital Signs - 24 hr 11/05/18 11/05/18 11/05/18 15:21 16:27 17:27 Temperature 36.4 C L Heart Rate 112 H 99 140 H Respiratory 20 20 29 H Rate Blood Pressure 166/97 H 166/98 H O2 Saturation 98 99 98 11/05/18 11/05/18 11/05/18 17:32 17:39 18:08 Temperature Heart Rate 101 H 98 108 H Respiratory 30 H 18 Rate Blood Pressure 191/107 H 127/66 O2 Saturation 98 97 100 11/05/18 11/05/18 11/05/18 18:55 19:13 19:37 Temperature Heart Rate 87 101 H Respiratory 16 18 17 Rate Blood Pressure 120/79 125/64 O2 Saturation 97 98 Oxygen O2 Source Room air - Labs Labs: Laboratory Tests 11/05/18 11/05/18 11/05/18 15:47 15:47 15:49 WBC 9.7 RBC 4.64 Hgb 13.6 Hct 39.8 MCV 85.7 MCH 29.3 MCHC 34.1 RDW 13.4 Plt Count 453 H MPV 7.9 Neut # (Auto) 8.0 H Lymph # (Auto) 1.0 L [place] # (Auto) 0.6 Eos # (Auto) 0.0 Baso # (Auto) 0.0 Absolute Nucleated RBC 0.00 Nucleated RBC % 0.1 Sodium 129 L Potassium 2.1 L* Chloride 91 L Carbon Dioxide 20 L Anion Gap 18.0 H BUN 17 Creatinine 0.5 Estimated GFR (MDRD) 129 Glucose 174 H Calcium 9.8 Total Bilirubin 0.9 AST 20 ALT 14 Alkaline Phosphatase 129 H Total Protein 8.0 Albumin 5.1 Globulin 2.9 Albumin/Globulin Ratio 1.8 Lipase 24 Urine Color Urine Clarity Urine pH Ur Specific [place] Urine Protein Urine Glucose (UA) Urine Ketones Urine Occult Blood Urine Nitrite Urine Bilirubin Urine Urobilinogen Ur Leukocyte Esterase Urine RBC Urine WBC Ur Squamous Epith Cells Urine Bacteria Ur Microscopic Review Urine Culture Comments Phenytoin < 2.5 11/05/18 19:45 WBC RBC Hgb Hct MCV MCH MCHC RDW Plt Count MPV Neut # (Auto) Lymph # (Auto) [place] # (Auto) Eos # (Auto) Baso # (Auto) Absolute Nucleated RBC Nucleated RBC % Sodium Potassium Chloride Carbon Dioxide Anion Gap BUN Creatinine Estimated GFR (MDRD) Glucose Calcium Total Bilirubin AST ALT Alkaline Phosphatase Total Protein Albumin Globulin Albumin/Globulin Ratio Lipase Urine Color YELLOW Urine Clarity CLEAR Urine pH 6.0 Ur Specific [place] 1.025 Urine Protein 100 H Urine Glucose (UA) NEGATIVE Urine Ketones 15 H Urine Occult Blood MODERATE H Urine Nitrite NEGATIVE Urine Bilirubin NEGATIVE Urine Urobilinogen 0.2 (NORMAL) Ur Leukocyte Esterase NEGATIVE Urine RBC TNTC H Urine WBC 0-3 Ur Squamous Epith Cells FEW Squamous Urine Bacteria Rare Ur Microscopic Review INDICATED Urine Culture Comments NOT INDICATED Phenytoin - Rads (name of study) CT KUB Radiology: EMP read contemporaneously (NAD) PD MEDICAL DECISION MAKING - ED course ED course: This is a 53-year-old woman with chronic recurrent hypokalemia, kidney stones presents with right flank pain and vomiting 2 days duration. She has not been able to keep down her meds and therefore is understandably hypokalemic. She actually has a PICC line in the right upper extremity for weekly potassium infusions. Most likely diagnosis will his renal colic causing vomiting given the history of same. About 5:20 PM I was called into the room and the patient was having a panic attack, she was still alert and oriented but became very tachycardic. I ordered some Ativan. A few minutes later I was called back into the room. She was having a tonic-clonic seizure. She has not been able to keep down her seizure medicines in a few days. She was given the Ativan. She recovered from that fine, workup showed a normal CT of the abdomen, hematuria but that is a chronic phenomenon for her. Admission was offered and recommended but she wanted to go home. She was able to keep down oral phenytoin and potassium. Departure - Departure Disposition: Home, Self Care Clinical Impression: Vomiting, Hypokalemia, Flank pain, acute, Seizure Hematuria Qualifiers: Hematuria type: other microscopic Qualified Code(s): R31.29 - Other microscopic hematuria; R31.2 - Other microscopic hematuria Condition: Good Record reviewed to determine appropriate education?: Yes Prescriptions: Prochlorperazine Maleate [Compazine] 10 mg PO QID PRN #20 tablet PRN Reason: Nausea / Vomiting Comments: Return immediately if unable to keep down her medications. Follow-up on Thursday for potassium infusion as usual. Follow-up with your doctor next week.
[2018-11-05] MEDS ORDERED: LORazepam 2 MG/ML VIAL IVP STA (17:27)
[2018-11-05] MEDS ORDERED: levETIRAcetam INJ 1,000 MG in SODIUM CHLORIDE 0.9% 100ML 100 ML IV STA (17:32)
[2018-11-05] MEDS ORDERED: POTASSIUM BICARB 25 MEQ TABLET PO STA (19:13)
[2018-11-05] MEDS ORDERED: METOCLOPRAMIDE 10 MG/2 ML VIAL IVP STA (19:13)
[2018-11-05 19:14] VITALS: BP 125/64
--- NOTE | 2018-11-05 19:27 | CT Report ---
Reason: R flank pain Procedure Date: 11/05/2018 Accession Number: [id number] / [id number] Procedure: CT - Abdomen/Pelvis WO CPT Code: FULL RESULT: EXAM: CT ABDOMEN AND PELVIS (CT KUB) EXAM DATE: 11/05/2018 06:43 PM. CLINICAL HISTORY: R flank pain. COMPARISONS: ABDOMEN/PELVIS W/O 08/17/2018 12:36 PM. TECHNIQUE: Routine axial helical CT imaging was performed through the abdomen and pelvis without IV contrast. Reconstructions: Coronal and sagittal. In accordance with CT protocol optimization, one or more of the following dose reduction techniques were utilized for this exam: automated exposure control, adjustment of mA and/or KV based on patient size, or use of iterative reconstructive technique. FINDINGS: Lung Bases: Unremarkable. Right Kidney/Ureter: No stones, hydronephrosis, or hydroureter. No perinephric fat stranding. Left Kidney/Ureter: No stones, hydronephrosis, or hydroureter. No perinephric fat stranding. Other Solid Organs: Noncontrast images of the solid organs are grossly unremarkable. Gallbladder/Bile Ducts: Unremarkable post cholecystectomy. Peritoneal Cavity: No free fluid, free air or meliza adenopathy. Bowel is grossly unremarkable. Pelvic Organs: Partially obscured due to streak. Post hysterectomy with no adnexal masses seen. The bladder appears within normal limits. Vasculature: Unremarkable. Other: Post left hip replacement and lower lumbar surgery. Bones are mildly osteopenic without definite acute osseous abnormality. Chronic left psoas muscle atrophy IMPRESSION: 1. No urinary tract stones or obstruction. 2. Previous cholecystectomy and hysterectomy. RADIA
[2018-11-05 20:02] LABS: BILIRUBIN,URINE NEGATIVE (NEGATIVE); GLUCOSE, URINE (UA) NEGATIVE (NEGATIVE); KETONES,URINE (UA) 15 mg/dL (NEGATIVE); LEUKOCYTE ESTERASE, URINE NEGATIVE (NEGATIVE); NITRITE,URINE NEGATIVE (NEGATIVE); OCCULT BLOOD,URINE MODERATE (NEGATIVE); PROTEIN,URINE 100 mg/dL (NEGATIVE); UROBILINOGEN,URINE 0.2 (NORMAL) E.U./dL (NORMAL)
[2018-11-05 20:08] LABS: CLARITY,URINE CLEAR (CLEAR)
[2018-11-05 20:09] LABS: BACTERIA,URINE Rare /HPF (None Seen); RBC,URINE TNTC /HPF (0-5); SQUAMOUS EPITHELIAL CELL,UR FEW Squamous (<= Few)
[2018-11-05] MEDS ORDERED: SODIUM CHLORIDE 0.9% IV STA (20:18)
[2018-11-05] MEDS ORDERED: PHENYTOIN IV STA (20:18)
[2018-11-05] MEDS ORDERED: PHENYTOIN ER 100 MG CAPSULE PO STA (20:21)
[2018-11-05] MEDS ORDERED: PROCHLORPERAZINE 5 MG TABLET PO STA (20:26)
== END 2018-11-05 20:50 | disposition home or self-care (01) ==
LOC: ED 15:15
DX: E87.6 Hypokalemia (principal); R11.2 Nausea with vomiting, unspecified; R10.9 Unspecified abdominal pain; G40.909 Epilepsy, unspecified, not intractable, without status epilepticus; F41.0 Panic disorder [episodic paroxysmal anxiety]; R31.21 Asymptomatic microscopic hematuria; Z87.442 Personal history of urinary calculi; I10 Essential (primary) hypertension; M32.9 Systemic lupus erythematosus, unspecified
CPT/HCPCS: 36415; 74176; 80053; 80185; 81001; 83690; 85025; 96365; 96366; 96368; 96375; 96376; 99284; A9270; J1170; J2060; J2765; J7120; 81003; 87086

== ENCOUNTER 2019-04-09 13:10 | Inpatient (IN) | payer MEDICARE, MEDICAID ==
[2019-04-09] MEDS ORDERED: SODIUM CHLORIDE 0.9% 1,000 ML IV STA (13:33)
[2019-04-09 13:41] LABS: GLUCOSE, URINE (UA) NEGATIVE (NEGATIVE); KETONES,URINE (UA) NEGATIVE (NEGATIVE); LEUKOCYTE ESTERASE, URINE MODERATE (NEGATIVE); NITRITE,URINE NEGATIVE (NEGATIVE); OCCULT BLOOD,URINE LARGE (NEGATIVE); PH,URINE 6.5 PH (5.0-7.5); PROTEIN,URINE 100 mg/dL (NEGATIVE); UROBILINOGEN,URINE 0.2 (NORMAL) E.U./dL (NORMAL)
[2019-04-09] MEDS ORDERED: ONDANSETRON 4 MG/2 ML VIAL IVP STA (13:47)
--- NOTE | 2019-04-09 13:47 | ED Physician Documentation ---
History of Present Illness - Stated complaint Stated Complaint: FEMALE , VOMITING - Chief complaint Chief Complaint: Abd Pain - History obtained from History obtained from: Patient, Family - History of Present Illness Timing: How many days ago (2) Pain level max: 7 Pain level now: 7 - Additonal information Additional information: 54-year-old female complains of dysuria and right flank pain for the past 2 days. States has had vomiting. Feels similar to past urinary tract infections. States unable to keep her medications down. She feels dehydrated. She also states that her potassium has been low recently. Nothing makes it better or worse. Review of Systems Ten Systems: 10 systems reviewed and negative GI: reports: Vomiting Skin: denies: Rash Musculoskeletal: denies: Neck pain Neurologic: denies: Focal weakness, Numbness, Headache PD PAST MEDICAL HISTORY - Past Medical History Past Medical History: Yes Cardiovascular: Hypertension, High cholesterol Respiratory: Asthma, Pneumonia Neuro: Seizure disorder Endocrine/Autoimmune: HyPOthyroidism, Systemic lupus erythematosus GI: GERD, Ulcers, C.difficile DIRECTOR OF PHYSICIAN PRACTICES: Ovarian cancer : Renal insuffiency, Nocturia, Frequency, Kidney stones HEENT: None Psych: Depression, Other Musculoskeletal: Osteoarthritis, Osteoporosis, Fatigue, Chronic back pain Derm: Other drug resistant infections, Psoriasis - Past Surgical History Past Surgical History: Yes General: Appendectomy Ortho: Hip replacement, Spine surgery /DIRECTOR OF PHYSICIAN PRACTICES: 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, Oophrectomy - Present Medications Home Medications: Ambulatory Orders Medication Instructions Recorded Confirmed Omeprazole [PriLOSEC] 20 mg PO BID 02/09/18 04/09/19 Pregabalin [Lyrica] 100 mg PO TID 02/09/18 04/09/19 levETIRAcetam [Keppra] 500 mg PO BID 02/09/18 04/09/19 Phenytoin Sodium Extended 300 mg PO QPM 03/16/18 04/09/19 Cetirizine [ZyrTEC] 10 mg PO DAILY 09/06/18 04/09/19 Melatonin 5 mg PO QPM PRN 09/06/18 04/09/19 Magnesium Oxide [Magnesium] 500 mg PO DAILY 09/14/18 04/09/19 Ondansetron [Ondansetron Odt] 8 mg PO Q6HR PRN 09/14/18 04/09/19 diphenhydrAMINE [Benadryl] 25 mg PO PRN PRN 09/14/18 04/09/19 Amlodipine Besylate [Norvasc] 10 mg PO DAILY #30 tablet 09/18/18 04/09/19 Methocarbamol 750 mg PO QID 09/20/18 04/09/19 Prochlorperazine Maleate 10 mg PO QID PRN #20 tablet 11/05/18 04/09/19 [Compazine] Carvedilol 6.25 mg PO QPM 04/09/19 04/09/19 Carvedilol 12.5 mg PO DAILY 04/09/19 04/09/19 Oxycodone HCl/Acetaminophen 1 tab PO TID PRN 04/09/19 04/09/19 [Oxycodone-Acetaminophen 10-325] Potassium Citrate [Potassium 40 meq PO TIDWM 04/09/19 04/09/19 Citrate ER] Spironolactone 50 mg PO BID 04/09/19 04/09/19 - Allergies Allergies/Adverse Reactions: Allergies Allergy/AdvReac Type Severity Reaction Status Date / Time Penicillins Allergy Severe Respiratory Verified 04/09/19 13:18 bacitracin Allergy Mild Hives Verified 04/09/19 13:18 [From Neosporin ([id number])] bacitracin zinc * Allergy Mild Itching Verified 04/09/19 13:18 [From Neosporin ([id number])] neomycin sulfate * Allergy Mild Itching Verified 04/09/19 13:18 [From Neosporin ([id number])] venom-honey bee Allergy Unknown Verified 04/09/19 13:18 [bee venom (honey bee)] ciprofloxacin AdvReac Emesis Verified 04/09/19 13:18 - Social History Does the pt smoke?: No Smoking Status: Never smoker Does the pt drink ETOH?: No Does the pt have substance abuse?: No - Immunizations Immunizations are current?: Yes - POLST Patient has POLST: Yes POLST Status: DNR PD ED PE NORMAL - Vitals Vital signs reviewed: Yes - General General: Alert and oriented X 3, No acute distress - HEENT HEENT: PERRL, Other (Dry lips and tongue) - Neck Neck: Supple, no meningeal sign - Cardiac Cardiac: RRR, Strong equal pulses - Respiratory Respiratory: No respiratory distress, Clear bilaterally - Abdomen Abdomen: Soft, Non tender, Non distended - Back Back: Other (Right CVA tenderness) - Derm Derm: Warm and dry - Neuro Neuro: Alert and oriented X 3 - Psych Psych: Normal mood, Normal affect Results - Vitals Vitals: Vital Signs - 24 hr 04/09/19 13:15 Temperature 36.8 C Heart Rate 100 Respiratory 19 Rate Blood Pressure 157/105 H O2 Saturation 97 Oxygen O2 Source Room air - Labs Labs: Laboratory Tests 04/09/19 04/09/19 04/09/19 13:34 13:52 14:13 WBC 15.2 H RBC 4.98 Hgb 14.4 Hct 41.3 MCV 82.9 MCH 28.9 MCHC 34.9 RDW 13.4 Plt Count 490 H MPV 10.1 Neut # (Auto) 11.2 H Lymph # (Auto) 2.8 [place] # (Auto) 1.0 Eos # (Auto) 0.1 Baso # (Auto) 0.1 Absolute Nucleated RBC 0.00 Nucleated RBC % 0.0 Sodium 136 Potassium 2.2 L* Chloride 102 Carbon Dioxide 18 L Anion Gap 16.0 H BUN 12 Creatinine 0.7 Estimated GFR (MDRD) 87 L Glucose 158 H Calcium 9.3 Phosphorus 1.5 L Magnesium 2.4 Total Bilirubin 0.5 AST 25 ALT 22 Alkaline Phosphatase 146 H Total Protein 7.6 Albumin 4.6 Globulin 3.0 Albumin/Globulin Ratio 1.5 Lipase 26 Urine Color YELLOW Urine Clarity CLOUDY Urine pH 6.5 Ur Specific [place] 1.025 Urine Protein 100 H Urine Glucose (UA) NEGATIVE Urine Ketones NEGATIVE Urine Occult Blood LARGE H Urine Nitrite NEGATIVE Urine Bilirubin NEGATIVE Urine Urobilinogen 0.2 (NORMAL) Ur Leukocyte Esterase MODERATE H Urine RBC 11-25 H Urine WBC >25 H Ur Squamous Epith Cells RARE Squamous Urine Bacteria Moderate H Ur Microscopic Review INDICATED Urine Culture Comments INDICATED PD MEDICAL DECISION MAKING - ED course Complexity details: reviewed results, re-evaluated patient, considered differential, d/w patient, d/w family, d/w ada accommodation consultant ED course: 54-year-old female with what appears to be pyelonephritis, complicated by hypokalemia. IV fluids given for dehydration. Potassium replaced. She requests a PICC line for further replacement. Anesthesia was consulted and will evaluate her on the floor for this. Discussed case with Dr. Camejo, hospitalist who accepts. This document was made in part using voice recognition software. While efforts are made to proofread this document, sound alike and grammatical errors may occur. Departure - Departure Disposition: 66 [facility] DC/Xfer Clinical Impression: Pyelonephritis, Hypokalemia Vomiting Qualifiers: Vomiting type: unspecified Vomiting Intractability: intractable Nausea presence: with nausea Qualified Code(s): R11.2 - Nausea with vomiting, unspecified Condition: Stable Discharge Date/Time: 04/09/19 16:25
[2019-04-09] MEDS ORDERED: MORPHINE 2 MG/ML CARPUJECT IVP STA (13:48)
[2019-04-09 13:50] LABS: BILIRUBIN,URINE NEGATIVE (NEGATIVE); CLARITY,URINE CLOUDY (CLEAR); ICTOTEST,URINE NEGATIVE; SQUAMOUS EPITHELIAL CELL,UR RARE Squamous (<= Few)
[2019-04-09 13:51] LABS: BACTERIA,URINE Moderate /HPF (None Seen)
[2019-04-09 14:00] LABS: BASOPHILS # (AUTO) 0.1 10^3/uL (0.0-0.1); BASOPHILS % (AUTO) 0.5 %; EOSINOPHILS # (AUTO) 0.1 10^3/uL (0.0-0.7); EOSINOPHILS % (AUTO) 0.3 %; HGB - HEMOGLOBIN 14.4 g/dL (12.0-16.0); LYMPHOCYTES # (AUTO) 2.8 10^3/uL (1.5-3.5); LYMPHOCYTES % (AUTO) 18.2 %; MEAN CORPUSCULAR HEMOGLOBIN 28.9 pg (27.0-31.0); MEAN CORPUSCULAR HGB CONC 34.9 g/dL (32.0-36.0); MEAN CORPUSCULAR VOLUME 82.9 fL (81.0-99.0); MEAN PLATELET VOLUME 10.1 fL (7.9-10.8); MONOCYTES % (AUTO) 6.6 %; NEUTROPHILS # (AUTO) 11.2 10^3/uL (1.5-6.6); NEUTROPHILS % (AUTO) 73.7 %; PLT - PLATELET COUNT 490 10^3/uL (130-450); RED BLOOD COUNT 4.98 10^6/uL (4.20-5.40); RED CELL DISTRIBUTION WIDTH 13.4 % (12.0-15.0); WHITE BLOOD COUNT 15.2 x10^3/uL (4.8-10.8)
[2019-04-09] MEDS ORDERED: cefTRIAXone 1 GM VIAL IVP STA (14:15)
[2019-04-09 14:41] LABS: ALBUMIN 4.6 g/dL (3.2-5.5); ALBUMIN/GLOBULIN RATIO 1.5 (1.0-2.2); BILIRUBIN,TOTAL 0.5 mg/dL (0.2-1.0); CALCIUM 9.3 mg/dL (8.5-10.3); CREATININE 0.7 mg/dL (0.4-1.0); MAGNESIUM 2.4 mg/dL (1.7-2.8); PHOSPHORUS 1.5 mg/dL (2.5-4.6); TOTAL PROTEIN 7.6 g/dL (6.7-8.2)
[2019-04-09] MEDS ORDERED: POTASSIUM CHLOR 10 MEQ/100 ML 10 MEQ/100 ML BAG IV ONE (14:42)
[2019-04-09] MEDS ORDERED: PROMETHAZINE 25 MG/1 ML VIAL IM PRN (15:29)
[2019-04-09] MEDS ORDERED: ONDANSETRON 4 MG/2 ML VIAL IVP PRN (15:29)
--- NOTE | 2019-04-09 15:33 | HISTORY & PHYSICAL EXAMINATION ---
Chief Complaint - Chief Complaint Chief Complaint: abdominal pain, confusion History of Present Illness - Admitted From Admitted From:: ED - History Obtained From Records Reviewed: yes History obtained from: chart review, patient Exam Limitations: AMS - History of Present Illness HPI Comment/Other: Lulú Centeno is a 54-year-old female with a past medical history of hypertension, hyperlipidemia, asthma, pneumonia, seizure disorder, hypothyroidism, systemic lupus erythematosus, GERD, gastric ulcers, c diff diarrhea, ovarian cancer- in remission, renal insufficiency, nocturia, urinary frequency, kidney stones, depression, anxiety, osteoarthritis, osteoporosis, chronic fatigue, chronic pain syndrome, psoriasis, and chronically low serum potassium. The patient presented to the ED via private car and reported nausea, vomiting, loss of appetite, and right flank pain since . She also noted that she has had dark urine which started yesterday. She believed that it felt similar to past urinary tract infections. States unable to keep her medications, liquids or food down and is beginning to feel dehydrated. She also states that her potassium has been low recently. Labs show a very low potassium of only 2.2, sodium of 136, normal creatinine and BUN, glucose 158, phosphorus of 1.5, alk phos of 146, an elevated WBC count of 15.2, H/H of 14.4/41.3, platelets of 490, neut # of 11.2, with no other lab abnormalities. A urine sample is + for acute UTI. There was no imaging done. She has mildly elevated B/P readings; 157/105, heart rate 100, on room air without fevers. She states that she has not been able to take her blood pressure pills today. She was given Rocephin while in the ED for suspected pyelonephritis given her complaints of flank pain, intractable nausea and vomiting. History - Past Medical History Cardiovascular: reports: Hypertension, High cholesterol Respiratory: reports: Asthma, Pneumonia Neuro: reports: TIA, Headaches, Migraines, Peripheral neuropathy, Seizure disorder, Other (fibromyalgia) Endocrine/Autoimmune: reports: HyPOthyroidism, Systemic lupus erythematosus GI: reports: GERD, Ulcers, C.difficile, Other (history of gastritis) ELECTROLESS PLATER: reports: Ovarian cancer : reports: Incontinence (stress incontinence), Renal insuffiency, Nocturia, Frequency, Kidney stones HEENT: reports: Chronic sinusitis Psych: reports: Depression Musculoskeletal: reports: Osteoarthritis, Osteoporosis, Fatigue, Chronic back pain, Other (wheel chair bound) Derm: reports: Psoriasis MRSA Hx?: Yes - Past Surgical History General: reports: Appendectomy Ortho: reports: Hip replacement (left), Spine surgery /ELECTROLESS PLATER: reports: 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, Oophrectomy - Family & Social History Family History: Mother: Alive and Well, Father: , CAD Family History Comment/Other: Mother is alive and well, age 76, with a history of cervical cancer, CABG x3. Father from heart disease. 1 brother who is alive and well. Living arrangement: At home Living Situation: With family Social History Notes: The patient has one daughter and her first when her daughter was 2 years old. The patient is legally from her 2nd . She is living with her daughter and her daughter's boyfriend in [place]. There are 2 dogs in the home, and the patient has one cat named Andrew. She no longer drives and is wheelchair bound at baseline. 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 She was using a walker and and has been nonweightbearing on the left side since her surgeries. She can perform all of her daily ADLs, but very little house work. She denies ETOH, tobacco, or illicit drug use. She wishes to be a DNR. - Substance History Use: Uses substance without health or social issues: Opioid Use Issues: Anxiety Disorder, Mood Disorder Abuse: Recurrent use of substance despite neg consequences: NONE Dependence: Experiences withdrawal or developed tolerances: NONE - POLST Patient has POLST: Yes POLST Status: DNR Meds/Allgy - Home Medications Home Medications: Ambulatory Orders Medication Instructions Recorded Confirmed Omeprazole [PriLOSEC] 20 mg PO BID 02/09/18 04/09/19 Pregabalin [Lyrica] 100 mg PO TID 02/09/18 04/09/19 levETIRAcetam [Keppra] 500 mg PO BID 02/09/18 04/09/19 Phenytoin Sodium Extended 300 mg PO QPM 03/16/18 04/09/19 Cetirizine [ZyrTEC] 10 mg PO DAILY 09/06/18 04/09/19 Melatonin 5 mg PO QPM PRN 09/06/18 04/09/19 Magnesium Oxide [Magnesium] 500 mg PO DAILY 09/14/18 04/09/19 Ondansetron [Ondansetron Odt] 8 mg PO Q6HR PRN 09/14/18 04/09/19 diphenhydrAMINE [Benadryl] 25 mg PO PRN PRN 09/14/18 04/09/19 Amlodipine Besylate [Norvasc] 10 mg PO DAILY #30 tablet 09/18/18 04/09/19 Methocarbamol 750 mg PO QID 09/20/18 04/09/19 Prochlorperazine Maleate 10 mg PO QID PRN #20 tablet 11/05/18 04/09/19 [Compazine] Carvedilol 6.25 mg PO QPM 04/09/19 04/09/19 Carvedilol 12.5 mg PO DAILY 04/09/19 04/09/19 Oxycodone HCl/Acetaminophen 1 tab PO TID PRN 04/09/19 04/09/19 [Oxycodone-Acetaminophen 10-325] Potassium Citrate [Potassium 40 meq PO TIDWM 04/09/19 04/09/19 Citrate ER] Spironolactone 50 mg PO BID 04/09/19 04/09/19 - Allergies Allergies/Adverse Reactions: Allergies Allergy/AdvReac Type Severity Reaction Status Date / Time Penicillins Allergy Severe Respiratory Verified 04/09/19 13:18 bacitracin Allergy Mild Hives Verified 04/09/19 13:18 [From Neosporin ([id number])] bacitracin zinc * Allergy Mild Itching Verified 04/09/19 13:18 [From Neosporin ([id number])] neomycin sulfate * Allergy Mild Itching Verified 04/09/19 13:18 [From Neosporin ([id number]-anprr)] venom-honey bee Allergy Unknown Verified 04/09/19 13:18 [bee venom (honey bee)] ciprofloxacin AdvReac Emesis Verified 04/09/19 13:18 Review of Systems - Constitutional Constitutional: reports: Fatigue, Fever, Chills, Weakness, Poor appetite - Ears, Nose & Throat Ears, Nose & Throat: reports: Postnasal drainage - Cardiovascular Cariovascular: reports: Decr. exercise tolerance - Respiratory Respiratory: reports: Cough (chronic) - Gastrointestinal Gastrointestinal: reports: Diarrhea, Change in bowel habits, Nausea, Vomiting, Reflux/heartburn, Bloating, Poor appetite - Genitourinary Genitourinary: reports: Frequency, Urgency, Incontinence, Nocturia - Musculoskeletal Musculoskeletal: reports: Back pain, Muscle aches, Limited range of motion - Neurological Neurological: reports: General weakness, Headache, Pre-existing deficit, Abnormal gait - Psychiatric Psychiatric: reports: Depression - Hematologic/Lymphatic Hematologic/Lymphatic: reports: Anemia, Recurrent infections - All Other Systems All Other Systems: reports: Reviewed and negative Prior Level of Functionality: Baseline wheelchair bound, cannot cook or clean. Does not drive, can perform in dependent shower and gets dressed by herself. Uses a 4-wheeled walker which is in the room. Exam - Vital Signs Reviewed Vital Signs: Yes Vital Signs: Vital Signs x48h Temp Pulse Resp BP Pulse Ox 04/09/19 13:15 36.8 C 100 19 157/105 H 97 - Physical Exam General Appearance: positive: No acute distress, Alert Eyes Bilateral: positive: PERRL ENT: positive: Pharynx nml, No signs of dehydration Neck: positive: Thyroid nml, No JVD, Trachea midline Respiratory: positive: Chest non-tender, No respiratory distress, Breath sounds nml Cardiovascular: positive: Regular rate & rhythm, No gallop, Systolic murmur Peripheral Pulses: positive: 1+ Abdomen: positive: Nml bowel sounds, Tenderness (bilateral low quadrants), Other (rounded, soft) Back: positive: Nml inspection, CVA tenderness (R) (painful with just a light palpation) Skin: positive: Color nml, No rash, Warm, Dry Extremities: positive: Non-tender, Full ROM, Nml appearance, No pedal edema Neurologic/Psychiatric: positive: Oriented x3, CN's nml (2-12), Motor nml, Sensation nml, Weakness, Depressed mood/affect Reflexes: Bicep (R): 3+, Bicep (L): 3+ Conclusion/Plan - Problem List (1) Intractable nausea and vomiting Conclusion/Plan: - The patient admits to having diarrhea on Thursday, Thursday and Thursday - On she started vomiting, which has not stopped - This has caused a problem with her not being able to consume her seizure meds, Keppra or dilantin, or her B/P pills Plan: Continue to treat with zofran, IV fluids, compazine if needed and treat infection (2) Acute metabolic encephalopathy Conclusion/Plan: - The patient notes that during previous episodes when she has had a UTI, her confusion becomes worse - ED notes that there was evidence of confusion, which has resolved upon my exam Plan: Continue to monitor, treat infection (3) Pyelonephritis Conclusion/Plan: - Very painful right low back on exam, which is new - Patient has a history of pyelonephritis, and kidney stones - Urinalysis is positive for UTI, negative nitrites - Her last culture from August grew citrobacter freundii Plan: IV antibiotics were started while in the ED, Rocephin Q24Hs (4) Hypokalemia Conclusion/Plan: - K+ serum was 2.2 on admission, which the patient states is her problem at home - Sees a tile picker outpatient - She was given 40 meq IV replacement - PICC line has been placed for IV potassium and for IV antibiotics Plan: Continue routine labs, replace as needed (5) Abdominal pain Conclusion/Plan: - The patient admits to bilateral lower quadrant abdominal pain which was likely caused from intractable vomiting Plan: Continue to monitor, prevent vomiting with anti-emetics (6) Chronic pain syndrome Conclusion/Plan: - Patient attends a pain clinic in [place] for her fibromyalgia, lupus, and left hip pain- wheel chair bound - Is prescribed Lyrica, methocarbamol, oxycodone, and firocet at home Plan: Continue Lyrica, use IV dilaudid for acute pain (7) Dehydration Conclusion/Plan: - The patient has dry mucous membranes and appears dehydrated on exam - Likely due to intractable nausea, vomiting and acute illness Plan: Continue NS with 20 Kcl IV fluids, re-assess in the AM (8) Flank pain, acute Conclusion/Plan: - Very tender on exam, right low back - Patient notes that this is what happens when she gets a UTI Plan: Obtain a kidney US to evaluate for pyleno, continue IV antibiotics (9) Hx of seizure disorder Conclusion/Plan: - Patient sees neurology outpatient, Dr. Tramaine Tejada at [facility] for her history of migraines and seizure disorder - Recently got botox injections for her migraines - Recently had her dilantin dose adjusted for dilantin toxicity - Is prescribed dilantin and keppra at home Plan: Continue meds, seizure precautions (10) Insomnia Conclusion/Plan: - Takes melatonin at home, continued here (11) Do not resuscitate status Conclusion/Plan: - DNR confirmed, continues here (12) LVH (left ventricular hypertrophy) Conclusion/Plan: - Noted on the patient's last echo showing a moderate concentric LVH - Was prescribed norvasc, which may not be the most ideal choice Plan: continue to monitor vital signs, hold norvasc, stick with beta blockers if indicated (13) Pulmonary hypertension Conclusion/Plan: - Increased RVSP at rest was noted on last echo - Physical exam notes enlarged abdominal girth and at times the patient notes dependent BLE edema at home Plan: Consider diuretics if indicated - Lab Results Lab results reviewed: Yes Carlos Bones: 04/09/19 13:52 04/09/19 14:13 - Diagnostic Imaging Results Diagnostic Imaging Results Comments: No imagine on admission, retroperitineal US is pending. Core Measures - Anticipated LOS I expect patient to be DC'd or transferred within 96 hours.: Yes - DVT/VTE - Prophylaxis VTE/DVT Device ordered at admit?: Yes VTE/DVT Prophylaxis med ordered at admit?: Yes - Stroke - Rehab Assessment Rehab services assessment to be ordered?: Yes - AMI - Statin at Admit Aspirin Prescribed on Admit: Yes
[2019-04-09] MEDS ORDERED: HYDROmorphone 1 MG/ML CARPUJECT IVP STA (16:08)
[2019-04-09] MEDS: NS W/20 MEQ KCL 1,000 ML IV SCH (18:15)
--- NOTE | 2019-04-09 18:46 | ANESTHESIA PROCEDURE NOTE ---
Anesth Central Line Template - Central Line Central Line Preparation: Consent Obtained, Time out completed Central line type: Double lumen Central line catheter tip site resides: Basilic Central line aftercare: Secured, No complications, Bundle checklist complete, Pt tolerated well Consultation Report: Calledm to place PICC line on patient with hx of difficult IV access, hypokalemia, and pylonephritis. Patient has had at least 8 PICC lines in the past. Consent obtained after a complete description of procedure, patient quite educated about central lines. Sterile prep, drape, mask, gloves. Left arm examined with ultrasound and a suitable vein seen. 1% lidocaine SQ and deep, 20 gauge needle used to lew vein numerous times, with the wire not advancing each tifme. Moved [place]own arm and above repeated several times until the wire finally was advanced, dilator placed over wire and wire removed. Using tip tracker the cath was seen to go across chest and go caudally. Unable to use the EKG for some reason so a CXR was ordered and the cath was seen to be placed more cephalad ( cath had been dressed already). Dressing removed, cath pulled back 10 cm to a total of 156 cm exposed (trimmed at 50 cm) and another CXR done, noting the cath to be now midline. Dressed, aspirated and flushed. Awaiting radiology confirmation.
--- NOTE | 2019-04-09 18:50 | XRAY Report ---
Reason: PICC placement Procedure Date: 04/09/2019 Accession Number: [id number] / [id number] Procedure: XR - Chest for Line Placement CPT Code: FULL RESULT: EXAM: CHEST RADIOGRAPHY EXAM DATE: 04/09/2019 06:20 PM. CLINICAL HISTORY: PICC placement. COMPARISON: CHEST 2 VIEW 02/09/2018 2:38 PM. TECHNIQUE: 1 view. FINDINGS: Lungs/Pleura: No focal opacities evident. No pleural effusion. No pneumothorax. Mediastinum: Heart size and mediastinal contour are within normal limits. Other: Left-sided PICC present with the distal portion extending up the left IJ. IMPRESSION: 1. Malpositioned left-sided PICC extending up the left IJ. Repositioning recommended. RADIA
--- NOTE | 2019-04-09 18:51 | XRAY Report ---
Reason: PICC Placement Procedure Date: 04/09/2019 Accession Number: [id number] / [id number] Procedure: XR - Chest for Line Placement CPT Code: FULL RESULT: EXAM: CHEST RADIOGRAPHY EXAM DATE: 04/09/2019 06:36 PM. CLINICAL HISTORY: PICC Placement. COMPARISON: CHEST 1 VIEW 04/09/2019 6:05 PM. TECHNIQUE: 1 view. FINDINGS: Lungs/Pleura: No focal opacities evident. No pleural effusion. No pneumothorax. Mediastinum: Heart size and mediastinal contour are stable. Other: Repositioned left-sided PICC with the tip by the confluence of the left subclavian and left IJ. IMPRESSION: 1. Repositioned left sided PICC with the tip at the confluence of the left subclavian and left IJ. RADIA
[2019-04-09] MEDS: SODIUM CHLORIDE FLUSH 0.9% 10 ML SYRINGE IVP SCH (18:55)
[2019-04-09] MEDS: CARVEDILOL 3.125 MG TABLET PO SCH ×2 (18:56→21:45)
[2019-04-09] MEDS: HYDROmorphone 1 MG/ML CARPUJECT IVP PRN ×2 (19:03→21:29)
[2019-04-09] MEDS ORDERED: CETIRIZINE 10 MG TABLET PO STA (20:01)
[2019-04-09] MEDS ORDERED: CARVEDILOL 3.125 MG TABLET PO SCH (21:00)
[2019-04-09] MEDS: PROCHLORPERAZINE 10 MG/2 ML VIAL IVP PRN (21:30)
[2019-04-09] MEDS: levETIRAcetam 250 MG TABLET PO SCH (21:36)
[2019-04-09] MEDS: PHENYTOIN ER 100 MG CAPSULE PO SCH (21:36)
[2019-04-09] MEDS: FAMOTIDINE 20 MG TABLET PO SCH ×2 (21:36→21:37)
[2019-04-09] MEDS: HEPARIN 5,000 UNIT/ML VIAL SUBQ SCH (21:37)
--- NOTE | 2019-04-09 21:53 | Ultrasound Report ---
Reason: evaluate for kidney infection/stones Procedure Date: 04/09/2019 Accession Number: [id number] / [id number] Procedure: US - Retroperitoneal CPT Code: FULL RESULT: EXAM: RENAL ULTRASOUND EXAM DATE: 04/09/2019 08:55 PM. CLINICAL HISTORY: Flank pain. UTI. COMPARISON: RETROPERITONEAL 09/06/2015 9:09 AM ABDOMEN/PELVIS W/O 11/05/2018 6:39 PM. TECHNIQUE: Real-time scanning was performed with static images obtained. FINDINGS: Right Kidney: 12.7 x 6.1 x 5.4 cm. Normal renal echotexture. No hydronephrosis. No renal masses. Mild cortical thinning. No definitive calculi are identified. Left Kidney: 10.6 x 6.8 x 5.4 cm. Normal renal echotexture. No hydronephrosis. No renal masses. Mild cortical thinning. No definitive calculi are identified. Bladder: Right ureteral jet is seen per left ureteral jet is not identified. The prevoid bladder volume was 16.8 cc. No postvoid residual obtained. Other: None. IMPRESSION: 1. Renal parenchymal echotexture within normal limits. Mild renal parenchymal volume loss. No definitive calculi. No renal masses. 2. No hydronephrosis. RADIA
[2019-04-09] MEDS ORDERED: PREGABALIN 100 MG CAPSULE PO SCH (22:00)
[2019-04-09] MEDS ORDERED: POTASSIUM CHLORIDE 20 MEQ TABLET PO ONE (23:27)
[2019-04-10] MEDS: HYDROmorphone 1 MG/ML CARPUJECT IVP PRN ×5 (00:03→19:57)
[2019-04-10] MEDS: SODIUM CHLORIDE FLUSH 0.9% 10 ML SYRINGE IVP SCH ×3 (01:08→15:30)
[2019-04-10] MEDS: PROCHLORPERAZINE 10 MG/2 ML VIAL IVP PRN ×4 (01:25→19:57)
[2019-04-10] MEDS: NS W/20 MEQ KCL 1,000 ML IV SCH ×2 (04:13→14:43)
[2019-04-10] MEDS: SODIUM CHLORIDE FLUSH 0.9% 10 ML SYRINGE IVP PRN ×2 (05:46→12:12)
[2019-04-10] MEDS ORDERED: PREGABALIN 100 MG CAPSULE PO SCH (06:51)
[2019-04-10 07:34] LABS: BASOPHILS % (AUTO) 0.7 %; EOSINOPHILS # (AUTO) 0.2 10^3/uL (0.0-0.7); EOSINOPHILS % (AUTO) 2.9 %; HGB - HEMOGLOBIN 9.8 g/dL (12.0-16.0); LYMPHOCYTES # (AUTO) 2.6 10^3/uL (1.5-3.5); LYMPHOCYTES % (AUTO) 45.6 %; MEAN CORPUSCULAR HEMOGLOBIN 28.7 pg (27.0-31.0); MEAN CORPUSCULAR HGB CONC 32.7 g/dL (32.0-36.0); MEAN PLATELET VOLUME 9.4 fL (7.9-10.8); MONOCYTES # (AUTO) 0.6 10^3/uL (0.0-1.0); MONOCYTES % (AUTO) 10.2 %; NEUTROPHILS # (AUTO) 2.3 10^3/uL (1.5-6.6); NEUTROPHILS % (AUTO) 40.2 %; PLT - PLATELET COUNT 230 10^3/uL (130-450); RED BLOOD COUNT 3.41 10^6/uL (4.20-5.40); RED CELL DISTRIBUTION WIDTH 13.6 % (12.0-15.0); WHITE BLOOD COUNT 5.6 x10^3/uL (4.8-10.8)
[2019-04-10] MEDS: PHENAZOPYRIDINE 100 MG TABLET PO SCH ×3 (08:30→21:38)
[2019-04-10] MEDS: levETIRAcetam 250 MG TABLET PO SCH ×2 (08:31→21:39)
[2019-04-10] MEDS: PREGABALIN 100 MG CAPSULE PO SCH ×3 (08:31→21:38)
[2019-04-10] MEDS: MAGNESIUM OXIDE 400 MG TABLET PO SCH (08:31)
[2019-04-10] MEDS: FAMOTIDINE 20 MG TABLET PO SCH ×2 (08:31→21:39)
[2019-04-10] MEDS: CARVEDILOL 12.5 MG TABLET PO SCH (08:31)
[2019-04-10] MEDS: CETIRIZINE 10 MG TABLET PO SCH (08:32)
[2019-04-10] MEDS: cefTRIAXone 1 GM in SODIUM CHLORIDE 0.9% MINIBAG 100 ML IV SCH (08:34)
[2019-04-10] MEDS: POLYETHYLENE GLYCOL 3350 17 GM PACKET PO SCH (08:35)
[2019-04-10] MEDS: HEPARIN 5,000 UNIT/ML VIAL SUBQ SCH (08:35)
--- NOTE | 2019-04-10 08:39 | PROVIDER PROGRESS NOTE ---
Subjective - Prog Note Date Prog Note Date: 04/10/19 Prog Note Time: 08:39 - Subjective Pt reports feeling: Improved Subjective: Nicolette has no complaints, and notes that her appetite remains poor today. She is sleepy today, but feels much improved from 24 hours ago. She requests to return home as early as tomorrow. Current Medications - Current Medications Current Medications: Active Medications: Carvedilol (Coreg) 12.5 mg PO DAILY PADMA Carvedilol (Coreg) 6.25 mg PO QPM PADMA Cetirizine HCl (Zyrtec) 10 mg PO DAILY PADMA Famotidine (Pepcid) 20 mg PO BID PADMA Hydromorphone HCl (Dilaudid Inj Carp) 1 mg IVP Q2HR PRN Potassium Chloride/Sodium Chloride (Normal Saline 0.9% W/20 Meq Kcl) 1,000 mls @ 100 mls/hr IV .Q10H PADMA Ceftriaxone Sodium 1 gm/ (Sodium Chloride) 100 mls @ 200 mls/hr IV DAILY PADMA Levetiracetam (Keppra) 500 mg PO BID PADMA Magnesium Oxide (Mag Ox) 400 mg PO DAILYWM PADMA Ondansetron HCl (Zofran Inj) 4 mg IVP Q6HR PRN (Melatonin [ (Melatonin] 5 Mg) Tab) 1 each PO QPM PADMA Phenazopyridine HCl (Pyridium) 200 mg PO TID PADMA Phenytoin Sodium (Dilantin) 300 mg PO QPM PADMA Polyethylene Glycol (Miralax) 17 gm PO DAILY PADMA Pregabalin (Lyrica) 100 mg PO TID@0800,1400,2200 PADMA Prochlorperazine Edisylate (Compazine Inj) 10 mg IVP Q4HR PRN Lovenox SQ 40mg daily HOME meds: Omeprazole [PriLOSEC] 20 mg PO BID 02/09/18 Pregabalin [Lyrica] 100 mg PO TID 02/09/18 levETIRAcetam [Keppra] 500 mg PO BID 02/09/18 Phenytoin Sodium Extended 300 mg PO QPM 03/16/18 Cetirizine [ZyrTEC] 10 mg PO DAILY 09/06/18 Melatonin 5 mg PO QPM PRN 09/06/18 Magnesium Oxide [Magnesium] 500 mg PO DAILY 09/14/18 Ondansetron [Ondansetron Odt] 8 mg PO Q6HR PRN 09/14/18 diphenhydrAMINE [Benadryl] 25 mg PO PRN PRN 09/14/18 Methocarbamol 750 mg PO QID 09/20/18 Carvedilol 6.25 mg PO QPM 04/09/19 Carvedilol 12.5 mg PO DAILY 04/09/19 Oxycodone HCl/Acetaminophen [Oxycodone-Acetaminophen 10-325] 1 tab PO TID PRN 04/09/19 Potassium Citrate [Potassium Citrate ER] 40 meq PO TIDWM 04/09/19 Spironolactone 50 mg PO BID 04/09/19 Objective - Vital Signs/Intake & Output Reviewed Vital Signs: Yes Vital Signs: Vital Signs x48h Temp Pulse Pulse Resp BP Pulse Ox 04/10/19 07:53 36.4 C L 78 16 147/86 H 98 04/10/19 04:41 36.6 C 78 16 130/80 97 Intake & Output: Intake & Output 04/07/19 04/08/19 04/09/19 04/10/19 23:59 23:59 23:59 23:59 Intake Total 1590 996.667 Output Total 450 550 Balance 1140 446.667 - Objective General Appearance: positive: No acute distress, Alert, Lethargic Eyes Bilateral: positive: PERRL ENT: positive: Pharynx nml, No signs of dehydration Neck: positive: Thyroid nml, No JVD, Trachea midline Respiratory: positive: Chest non-tender, No respiratory distress, Other (diminished, bilaterally) Cardiovascular: positive: Regular rate & rhythm, No gallop, Systolic murmur, Decreased pulse(s) Peripheral Pulses: 1+ Radial (R), 1+ Radial (L) Abdomen: positive: Non-tender, Nml bowel sounds, Hepatomegaly Back: positive: Nml inspection, CVA tenderness (R) Skin: positive: Color nml, No rash, Warm, Dry Extremities: positive: Non-tender, Full ROM, Nml appearance, No pedal edema Neurologic/Psychiatric: positive: Oriented x3, CN's nml (2-12), Motor nml, Sensation nml, Mood/affect nml Reflexes: Bicep (R): 3+, Bicep (L): 3+ - Lab Results Fish Bones: 04/10/19 07:15 04/09/19 14:13 Other Labs: Lab Results x24hrs 04/10/19 04/09/19 04/09/19 Range/Units 07:15 15:32 14:13 WBC 5.6 (4.8-10.8) x10^3/uL RBC 3.41 L (4.20-5.40) 10^6/uL Hgb 9.8 L (12.0-16.0) g/dL Hct 30.0 L (37.0-47.0) % MCV 88.0 (81.0-99.0) fL MCH 28.7 (27.0-31.0) pg MCHC 32.7 (32.0-36.0) g/dL RDW 13.6 (12.0-15.0) % Plt Count 230 (130-450) 10^3/uL MPV 9.4 (7.9-10.8) fL Neut # (Auto) 2.3 (1.5-6.6) 10^3/uL Lymph # (Auto) 2.6 (1.5-3.5) 10^3/uL [place] # (Auto) 0.6 (0.0-1.0) 10^3/uL Eos # (Auto) 0.2 (0.0-0.7) 10^3/uL Baso # (Auto) 0.0 (0.0-0.1) 10^3/uL Absolute Nucleated RBC 0.00 x10^3/uL Nucleated RBC % 0.0 /100WBC Sodium 136 (135-145) mmol/L Potassium 2.2 L* (3.5-5.0) mmol/L Chloride 102 (101-111) mmol/L Carbon Dioxide 18 L (21-32) mmol/L Anion Gap 16.0 H (6-13) BUN 12 (6-20) mg/dL Creatinine 0.7 (0.4-1.0) mg/dL Estimated GFR (MDRD) 87 L (>89) Glucose 158 H (70-100) mg/dL Lactic Acid 1.7 (0.5-2.2) mmol/L Calcium 9.3 (8.5-10.3) mg/dL Phosphorus 1.5 L (2.5-4.6) mg/dL Magnesium 2.4 (1.7-2.8) mg/dL Total Bilirubin 0.5 (0.2-1.0) mg/dL AST 25 (10-42) IU/L ALT 22 (10-60) IU/L Alkaline Phosphatase 146 H (42-121) IU/L Total Protein 7.6 (6.7-8.2) g/dL Albumin 4.6 (3.2-5.5) g/dL Globulin 3.0 (2.1-4.2) g/dL Albumin/Globulin Ratio 1.5 (1.0-2.2) Lipase 26 (22-51) U/L Urine Color Urine Clarity (CLEAR) Urine pH (5.0-7.5) PH Ur Specific [place] (1.002-1.030) Urine Protein (NEGATIVE) mg/dL Urine Glucose (UA) (NEGATIVE) mg/dL Urine Ketones (NEGATIVE) mg/dL Urine Occult Blood (NEGATIVE) Urine Nitrite (NEGATIVE) Urine Bilirubin (NEGATIVE) Urine Urobilinogen (NORMAL) E.U./dL Ur Leukocyte Esterase (NEGATIVE) Urine RBC (0-5) /HPF Urine WBC (0-5) /HPF Ur Squamous Epith Cells (<= Few) Urine Bacteria (None Seen) /HPF Ur Microscopic Review Urine Culture Comments 04/09/19 04/09/19 Range/Units 13:52 13:34 WBC 15.2 H (4.8-10.8) x10^3/uL RBC 4.98 (4.20-5.40) 10^6/uL Hgb 14.4 (12.0-16.0) g/dL Hct 41.3 (37.0-47.0) % MCV 82.9 (81.0-99.0) fL MCH 28.9 (27.0-31.0) pg MCHC 34.9 (32.0-36.0) g/dL RDW 13.4 (12.0-15.0) % Plt Count 490 H (130-450) 10^3/uL MPV 10.1 (7.9-10.8) fL Neut # (Auto) 11.2 H (1.5-6.6) 10^3/uL Lymph # (Auto) 2.8 (1.5-3.5) 10^3/uL [place] # (Auto) 1.0 (0.0-1.0) 10^3/uL Eos # (Auto) 0.1 (0.0-0.7) 10^3/uL Baso # (Auto) 0.1 (0.0-0.1) 10^3/uL Absolute Nucleated RBC 0.00 x10^3/uL Nucleated RBC % 0.0 /100WBC Sodium (135-145) mmol/L Potassium (3.5-5.0) mmol/L Chloride (101-111) mmol/L Carbon Dioxide (21-32) mmol/L Anion Gap (6-13) BUN (6-20) mg/dL Creatinine (0.4-1.0) mg/dL Estimated GFR (MDRD) (>89) Glucose (70-100) mg/dL Lactic Acid (0.5-2.2) mmol/L Calcium (8.5-10.3) mg/dL Phosphorus (2.5-4.6) mg/dL Magnesium (1.7-2.8) mg/dL Total Bilirubin (0.2-1.0) mg/dL AST (10-42) IU/L ALT (10-60) IU/L Alkaline Phosphatase (42-121) IU/L Total Protein (6.7-8.2) g/dL Albumin (3.2-5.5) g/dL Globulin (2.1-4.2) g/dL Albumin/Globulin Ratio (1.0-2.2) Lipase (22-51) U/L Urine Color YELLOW Urine Clarity CLOUDY (CLEAR) Urine pH 6.5 (5.0-7.5) PH Ur Specific [place] 1.025 (1.002-1.030) Urine Protein 100 H (NEGATIVE) mg/dL Urine Glucose (UA) NEGATIVE (NEGATIVE) mg/dL Urine Ketones NEGATIVE (NEGATIVE) mg/dL Urine Occult Blood LARGE H (NEGATIVE) Urine Nitrite NEGATIVE (NEGATIVE) Urine Bilirubin NEGATIVE (NEGATIVE) Urine Urobilinogen 0.2 (NORMAL) (NORMAL) E.U./dL Ur Leukocyte Esterase MODERATE H (NEGATIVE) Urine RBC 11-25 H (0-5) /HPF Urine WBC >25 H (0-5) /HPF Ur Squamous Epith Cells RARE Squamous (<= Few) Urine Bacteria Moderate H (None Seen) /HPF Ur Microscopic Review INDICATED Urine Culture Comments INDICATED ABX Reporting Has patient been on IV antibiotics over the past 48 hours?: Yes Assessment/Plan - Problem List (1) Intractable nausea and vomiting Impression: - The patient admits to having diarrhea on Thursday, Thursday and Thursday - On she started vomiting, which has not stopped - This has caused a problem with her not being able to consume her seizure meds, Keppra or dilantin, or her B/P pills - Tolerating very light meals today, no vomiting Plan: Continue to treat with zofran, IV fluids, compazine if needed and treat infection (2) Acute metabolic encephalopathy Impression: - The patient notes that during previous episodes when she has had a UTI, her confusion becomes worse - ED notes that there was evidence of confusion, which has resolved upon my exam - Admits to waking up "foggy" at times and being more sleepy today Plan: Continue to monitor, treat infection (3) Pyelonephritis Impression: - Very painful right low back on exam, which is new and somewhat improved today - Patient has a history of pyelonephritis, and kidney stones - Kidney US from last evening shows no hydronephrosis, no stones - Urinalysis is positive for UTI, negative nitrites - Preliminary results show e coli strain with the final culture pending - Her last culture from August grew citrobacter freundii Plan: IV antibiotics were started while in the ED, Rocephin Q24Hs continues here, IVFs also continue (4) Burning with urination Impression: - Patient first complained of burning early this morning, at which time Pyridium was added - Patient has been more sleepy today, with little urine output, so now has requested a dose Plan: Continue to monitor, order bladder scans, treat infection (5) Hypokalemia Impression: - No new labs this AM, so now ordered - Last potassium was 2.2 (6) Chronic pain syndrome Impression: - Patient attends a pain clinic in [place] for her fibromyalgia, lupus, and left hip pain- wheel chair bound - Is prescribed Lyrica, methocarbamol, oxycodone, and firocet at home Plan: Continue Lyrica, use IV dilaudid for acute pain (7) Flank pain, acute Impression: - Very tender on exam, right low back- improved today - Patient notes that this is what happens when she gets a UTI Plan: Continue IV antibiotics, IVFs (8) Hx of seizure disorder Impression: - Patient sees neurology outpatient, Dr. Tramaine Tejada at [facility] for her history of migraines and seizure disorder - Recently got botox injections for her migraines - Recently had her dilantin dose adjusted for dilantin toxicity - Is prescribed dilantin and keppra at home - Has been tolerating PO intake today, no seizures noted by nursing Plan: Continue meds, seizure precautions (9) Insomnia Impression: - Takes melatonin at home, continued here - More sleepy today, refused Melatonin last night Plan: continue to monitor, routine labs (10) LVH (left ventricular hypertrophy) Impression: - Noted on the patient's last echo showing a moderate concentric LVH - Was prescribed norvasc, which may not be the most ideal choice - Blood pressure fine today 137/77 Plan: continue to monitor vital signs, hold norvasc, stick with beta blockers if indicated (11) Pulmonary hypertension Impression: - Increased RVSP at rest was 37 mmHg, noted on last echo - Physical exam notes enlarged abdominal girth and at times the patient notes dependent BLE edema at home - No complaints of shortness of breath today, so continuing IVFs, holding spironolactone - Denies a history of KALIA or inhalant use Plan: Consider diuretics if indicated
[2019-04-10] MEDS ORDERED: oxyCODONE 5 MG TABLET PO PRN (17:36)
[2019-04-10 18:59] LABS: ALBUMIN 3.3 g/dL (3.2-5.5); ALBUMIN/GLOBULIN RATIO 1.3 (1.0-2.2); BILIRUBIN,TOTAL 0.2 mg/dL (0.2-1.0); CREATININE 0.6 mg/dL (0.4-1.0); TOTAL PROTEIN 5.8 g/dL (6.7-8.2)
[2019-04-10] MEDS: CARVEDILOL 3.125 MG TABLET PO SCH (21:38)
[2019-04-10] MEDS: PHENYTOIN ER 100 MG CAPSULE PO SCH (21:38)
[2019-04-10] MEDS: NEUTRA-PHOS 250 MG TABLET PO SCH (21:39)
[2019-04-11] MEDS: SODIUM CHLORIDE FLUSH 0.9% 10 ML SYRINGE IVP SCH ×4 (00:18→13:35)
[2019-04-11] MEDS: PROCHLORPERAZINE 10 MG/2 ML VIAL IVP PRN (00:20)
[2019-04-11] MEDS: HYDROmorphone 1 MG/ML CARPUJECT IVP PRN ×2 (00:26→05:28)
[2019-04-11] MEDS: NS W/20 MEQ KCL 1,000 ML IV SCH (00:35)
[2019-04-11] MEDS ORDERED: oxyCODONE 5 MG TABLET PO PRN ×2 (02:04→08:32)
[2019-04-11 05:22] LABS: CALCIUM 8.5 mg/dL (8.5-10.3); CREATININE 0.6 mg/dL (0.4-1.0)
[2019-04-11] MEDS: PHENAZOPYRIDINE 100 MG TABLET PO SCH ×2 (05:23→13:37)
[2019-04-11] MEDS: cefTRIAXone 1 GM in SODIUM CHLORIDE 0.9% MINIBAG 100 ML IV SCH (08:20)
[2019-04-11 08:36] VITALS: BP 151/91
[2019-04-11] MEDS ORDERED: SPIRONOLACTONE 25 MG TABLET PO SCH (09:00)
[2019-04-11] MEDS ORDERED: ENOXAPARIN 40 MG/0.4 ML SYRINGE SUBQ SCH (09:00)
[2019-04-11] MEDS: MORPHINE 2 MG/ML CARPUJECT IVP PRN ×3 (09:29→13:36)
--- NOTE | 2019-04-11 09:29 | XRAY Report ---
Reason: increased pain swelling, left thigh Procedure Date: 04/11/2019 Accession Number: [id number] / [id number] Procedure: XR - Femur 2V LT CPT Code: FULL RESULT: EXAM: LEFT FEMUR RADIOGRAPHY EXAM DATE: 04/11/2019 09:10 AM. CLINICAL HISTORY: Increased pain swelling, left thigh. COMPARISON: HIP 1 VIEW LT 12/24/2017 9:07 AM HIP W/PELVIS 2-3V LT 12/19/2015 4:52 AM. TECHNIQUE: 2 views. FINDINGS: Bones: Stable appearance of acetabular component of a left total hip arthroplasty constructed out of cement and nonunited fracture fragments of the greater and lesser trochanters. Longstem bipolar left hip prosthesis shows slow progressive lucency along the bone component and cement component interfaces consistent with motion/loosening, most notable near the tip of the component where there is also anterior cortical thinning and likely impending breakthrough/fracture of the anterior cortex. Stable position of cerclage wires. No acute periprosthetic fracture at this time. Diffuse osteopenia. Joints: Knee joint is within normal limits. No appreciable effusion. Soft Tissues: Normal. No soft tissue swelling. IMPRESSION: Evidence of motion/loosening of the longstem femoral component as described with anterior cortical thinning and likely impending anterior cortical breakthrough/fracture of the tip of the stem. [facility] The call report notification system was initiated by Dr. Luis eCballos at 09:28 AM on 04/11/2019. The above call report findings were discussed with Yin Cardenas by Dr. Luis Ceballos at 09:32 AM on 04/11/2019.
[2019-04-11] MEDS: METHOCARBAMOL 500 MG TABLET PO SCH ×2 (09:30→12:03)
[2019-04-11] MEDS: NEUTRA-PHOS 250 MG TABLET PO SCH ×2 (09:37→12:04)
[2019-04-11] MEDS: PREGABALIN 100 MG CAPSULE PO SCH ×2 (09:37→13:33)
[2019-04-11] MEDS: CETIRIZINE 10 MG TABLET PO SCH (09:37)
[2019-04-11] MEDS: levETIRAcetam 250 MG TABLET PO SCH (09:37)
[2019-04-11] MEDS: MAGNESIUM OXIDE 400 MG TABLET PO SCH (09:38)
[2019-04-11] MEDS: CARVEDILOL 12.5 MG TABLET PO SCH (09:38)
[2019-04-11] MEDS: FAMOTIDINE 20 MG TABLET PO SCH (09:38)
[2019-04-11] MEDS: POLYETHYLENE GLYCOL 3350 17 GM PACKET PO SCH (09:39)
[2019-04-11] MEDS ORDERED: POTASSIUM CHLORIDE 20 MEQ TABLET PO SCH (12:45)
--- NOTE | 2019-04-11 14:33 | Discharge Plan ---
Discharge Plan Problem Reviewed?: Yes Disposition: Home, Self Care Condition: Good Prescriptions: Ondansetron [Ondansetron Odt] 8 mg PO Q6HR PRN #20 tab.rapdis PRN Reason: Nausea / Vomiting Carvedilol 12.5 mg PO Q12H #60 tablet Levofloxacin [Levaquin] 750 mg PO DAILY #14 tablet Neutra-Phos [K-Phos Neutral] 250 mg PO TIDWM #60 tablet Phenazopyridine [Pyridium] 200 mg PO TID PRN #30 tablet PRN Reason: Bladder Spasms Prochlorperazine Maleate [Compazine] 10 mg PO QID PRN #20 tablet PRN Reason: Nausea / Vomiting Saccharomyces Boulardii [Florastor] 250 mg PO BID #28 capsule Diet: Regular Activity Restrictions: Activity as Tolerated Shower Restrictions: No Assistance Devices: Wheelchair Instruction Topics: Prochlorperazine tablets, Levofloxacin tablets, Phenazopyridine tablets Health Concerns: Kidney infection Chronic pain syndrome Seizure disorder Acute left hip/leg pain Nausea/vomiting Dysuria (burning with urination) Hypokalemia Plan of Treatment: Continue oral antibiotics for an extended course for kidney involvement Take a probiotic for twice as long as the antibiotics Use Zofran or Compazine for nausea at home, but this should continue to improve Use Pyridium for burning with urination Check with your neurologist on the dosing of Dilantin, your current level is 3.1 (should be 10-20) [place] your unstable left femur/hip, remain non-weight bearing to your left leg Follow up with your PCP within one week Care Goals: Prevent recurrence of infection Prevent hospital stays Manage nausea/vomiting Proceed with upcoming surgical procedure for your left leg/hip Assessment: Your urine culture was quick to result, which gives a clear path when it comes to antibiotic choices. Since your had improvement in your diet and have been improving each day, you are safe to return home today. Additional Instructions or Follow Up instructions: Your blood phosphorus level was low, so please start taking a medication called neutra-phos You have a condition called left ventricular hypertrophy, so Norvasc may not be the most ideal choice in treating your blood pressure and can cause swelling I have increased your coreg to 12.5 every 12 hours (max dose is 50 mg daily, so this can be further adjusted at a later date if needed) No Smoking: If you smoke, Please STOP! Call for help. Follow-up with: Quiana Jin DO [Primary Care Provider] -
--- NOTE | 2019-04-11 15:28 | DISCHARGE SUMMARY ---
Discharge Summary Admit Date: 04/09/19 Discharge Date: 04/11/19 Discharging Provider: IMELDA Linares Primary Care Provider: Quiana Jin Code Status: Do Not Attempt Resuscitation Condition at Discharge: Good Discharge Disposition: 01 Home, Self Care - DIAGNOSES Admission Diagnoses: Intractable nausea and vomiting Acute metabolic encephalopathy Pyelonephritis Hypokalemia Chronic pain syndrome Dehydration Flank pain, acute History of seizure disorder Do not resuscitate status Insomnia LVH (left ventricular hypertrophy) Pulmonary hypertension Discharge Diagnoses with Status of Each Condition: Intractable nausea and vomiting- Tolerating meals, no further vomiting noted, given zofran & compazine for episodes at home Acute metabolic encephalopathy- Resolved Pyelonephritis- Continue treatment at home with Levofloxacin for 14-days, pr obiotic for 28-days Burning with urination- Improved, pyridium resumed from home Hypokalemia- Chronic, improved, resumed usual home meds Chronic pain syndrome- Chronic, acute left hip/leg pain which resolved after resuming her muscle relaxers from home, x-ray confirms fragile bone tissue. Orthopedic surgery was called, who reviewed the films, but was not officially consulted and [place] De[place]- Resolved Flank pain, acute- Nearly resolved History of seizure disorder- Chronic, dilantin serum trough level was low at 3.1 (normal 10-20), recommended follow up with neurology outpatient, no adjustments were made to her home meds Do not resuscitate status- Chronic, unchanged Insomnia- Chronic, stable LVH (left ventricular hypertrophy)- Chronic, stopped Norvasc, increased Coreg. Norvasc is not a ideal choice in those with LVH Pulmonary hypertension- Continued on home Spironolactone, encouraged to stop smoking - HPI History of Present Illness: Lulú Centeno is a 54-year-old female with a past medical history of hypertension, hyperlipidemia, asthma, pneumonia, seizure disorder, hypothyroidism, systemic lupus erythematosus, GERD, gastric ulcers, c diff diarrhea, ovarian cancer- in remission, renal insufficiency, nocturia, urinary frequency, kidney stones, depression, anxiety, osteoarthritis, osteoporosis, chronic fatigue, chronic pain syndrome, psoriasis, and chronically low serum potassium. The patient presented to the ED via private car and reported nausea, vomiting, loss of appetite, and right flank pain since . She also noted that she has had dark urine which started yesterday. She believed that it felt similar to past urinary tract infections. States unable to keep her medications, liquids or food down and is beginning to feel dehydrated. She also states that her potassium has been low recently. Labs show a very low potassium of only 2.2, sodium of 136, normal creatinine and BUN, glucose 158, phosphorus of 1.5, alk phos of 146, an elevated WBC count of 15.2, H/H of 14.4/41.3, platelets of 490, neut # of 11.2, with no other lab abnormalities. A urine sample is + for acute UTI. There was no imaging done. She has mildly elevated B/P readings; 157/105, heart rate 100, on room air without fevers. She states that she has not been able to take her blood pressure pills today. She was given Rocephin while in the ED for suspected pyelonephritis given her complaints of flank pain, intractable nausea and vomiting. - HOSPITAL COURSE Hospital Course: (1) Intractable nausea and vomiting- The patient admits to having diarrhea on Thursday, Thursday and Thursday - On she started vomiting, which has not stopped - This has caused a problem with her not being able to consume her seizure meds, Keppra or dilantin, or her B/P pills - Tolerating very light meals, no vomiting (2) Acute metabolic encephalopathy- The patient notes that during previous ep isodes when she has had a UTI, her confusion becomes worse - ED notes that there was evidence of confusion, which has resolved upon my exam (3) Pyelonephritis- Very painful right low back on exam, which is new and somewhat improved today - Patient has a history of pyelonephritis, and kidney stones - Kidney US from last evening shows no hydronephrosis, no stones - Urinalysis is positive for UTI, negative nitrites - Final results show e coli strain with a sensitivity list (4) Burning with urination- Patient first complained of burning early this morning, at which time Pyridium was added - Patient has been more sleepy today, with little urine output, so now has requested a dose (5) Hypokalemia- Last potassium was 2.2, improved to 3.1 (6) Chronic pain syndrome- Patient attends a pain clinic in [place] for her fibromyalgia, lupus, and left hip pain- wheel chair bound - Is prescribed Lyrica, methocarbamol, oxycodone, and firocet at home (7) Flank pain, acute- Very tender on exam, right low back- improved today and nearly resolved - Patient notes that this is what happens when she gets a UTI (8) Hx of seizure disorder- Patient sees neurology outpatient, Dr. Tramaine Tejada at [facility] for her history of migraines and seizure disorder - Recently got botox injections for her migraines - Recently had her dilantin dose adjusted for dilantin toxicity - Is prescribed dilantin and keppra at home - Dilantin trough level was 3.1 (normal 10-20), which the patient was given a copy of the result to give to her neurologist - Has been tolerating PO intake today, no seizures noted by nursing (9) Insomnia- Takes melatonin at home, continued here (10) LVH (left ventricular hypertrophy)- Noted on the patient's last echo showing a moderate concentric LVH - Was prescribed norvasc, which may not be the most ideal choice (11) Pulmonary hypertension- Increased RVSP at rest was 37 mmHg, noted on last echo - Physical exam notes enlarged abdominal girth and at times the patient notes dependent BLE edema at home - No complaints of shortness of breath today, so continuing IVFs, holding spironolactone - Denies a history of KALIA or inhalant use Disposition: The patient was anxious to return home and was transported via private car with her daughter home. She was spoken to about her x-ray which was done earlier today for acute left leg pain which was resolved after resuming her home muscle relaxers. I reached out to our orthopedic surgeon, Dr. Tobin for his impression of the left femur x-ray and confirmed that her bone tissue appears brittle and a more expedited ortho visit should be arranged after this infection is cleared up. - ALLERGIES Allergies/Adverse Reactions: Allergies Allergy/AdvReac Type Severity Reaction Status Date / Time Penicillins Allergy Severe Respiratory Verified 04/09/19 13:18 bacitracin Allergy Mild Hives Verified 04/09/19 13:18 [From Neosporin ([id number])] bacitracin zinc * Allergy Mild Itching Verified 04/09/19 13:18 [From Neosporin ([id number])] neomycin sulfate * Allergy Mild Itching Verified 04/09/19 13:18 [From Neosporin ([id number])] venom-honey bee Allergy Unknown Verified 04/09/19 13:18 [bee venom (honey bee)] ciprofloxacin AdvReac Emesis Verified 04/09/19 13:18 - MEDICATIONS Home Medications: Ambulatory Orders Medication Instructions Recorded Confirmed Omeprazole [PriLOSEC] 20 mg PO BID 02/09/18 04/09/19 Pregabalin [Lyrica] 100 mg PO TID 02/09/18 04/09/19 levETIRAcetam [Keppra] 500 mg PO BID 02/09/18 04/09/19 Phenytoin Sodium Extended 300 mg PO QPM 03/16/18 04/09/19 Cetirizine [ZyrTEC] 10 mg PO DAILY 09/06/18 04/09/19 Melatonin 5 mg PO QPM PRN 09/06/18 04/09/19 Magnesium Oxide [Magnesium] 500 mg PO DAILY 09/14/18 04/09/19 diphenhydrAMINE [Benadryl] 25 mg PO PRN PRN 09/14/18 04/09/19 Methocarbamol 750 mg PO QID 09/20/18 04/09/19 Oxycodone HCl/Acetaminophen 1 tab PO TID PRN 04/09/19 04/09/19 [Oxycodone-Acetaminophen 10-325] Potassium Citrate [Potassium 40 meq PO TIDWM 04/09/19 04/09/19 Citrate ER] Spironolactone 50 mg PO BID 04/09/19 04/09/19 Carvedilol 12.5 mg PO Q12H #60 tablet 04/11/19 Levofloxacin [Levaquin] 750 mg PO DAILY #14 tablet 04/11/19 Neutra-Phos [K-Phos Neutral] 250 mg PO TIDWM #60 tablet 04/11/19 Ondansetron [Ondansetron Odt] 8 mg PO Q6HR PRN #20 tab.rapdis 04/11/19 Phenazopyridine [Pyridium] 200 mg PO TID PRN #30 tablet 04/11/19 Prochlorperazine Maleate 10 mg PO QID PRN #20 tablet 04/11/19 [Compazine] Saccharomyces Boulardii [Florastor] 250 mg PO BID #28 capsule 04/11/19 - PHYSICAL EXAM AT DISCHARGE General Appearance: positive: No acute distress, Alert Eyes Bilateral: positive: PERRL ENT: positive: Pharynx nml, No signs of dehydration Neck: positive: Thyroid nml, No JVD, Trachea midline Respiratory: positive: Chest non-tender, No respiratory distress, Breath sounds nml Cardiovascular: positive: Regular rate & rhythm, No gallop, Systolic murmur, D ecreased pulse(s) Peripheral Pulses: positive: 1+ Abdomen: positive: Non-tender, Nml bowel sounds, Hepatomegaly, Other (rounded, soft) Back: positive: Nml inspection, CVA tenderness (R) Skin: positive: Color nml, No rash, Warm, Dry Extremities: positive: Non-tender, Full ROM, Nml appearance, No pedal edema Neurologic/Psychiatric: positive: Oriented x3, CN's nml (2-12), Motor nml, Sensation nml, Mood/affect nml Reflexes: Bicep (R): 3+, Bicep (L): 3+ - LABS Result Diagrams: 04/10/19 07:15 04/11/19 04:51 - DIAGNOSTIC IMAGING Diagnostic Imaging Results: Final report reviewed Diagnostic Imaging Results Comments: EXAM: RENAL ULTRASOUND EXAM DATE: 04/09/2019 08:55 PM. IMPRESSION: 1. Renal parenchymal echotexture within normal limits. Mild renal parenchymal volume loss. No definitive calculi. No renal masses. 2. No hydronephrosis. EXAM: LEFT FEMUR RADIOGRAPHY EXAM DATE: 04/11/2019 09:10 AM FINDINGS: Bones: Stable appearance of acetabular component of a left total hip arthroplasty constructed out of cement and nonunited fracture fragments of the greater and lesser trochanters. Longstem bipolar left hip prosthesis shows slow progressive lucency along the bone component and cement component interfaces consistent with motion/loosening, most notable near the tip of the component where there is also anterior cortical thinning and likely impending breakthrough/fracture of the anterior cortex. Stable position of cerclage wires. No acute periprosthetic fracture at this time. Diffuse osteopenia. Joints: Knee joint is within normal limits. No appreciable effusion. Soft Tissues: Normal. No soft tissue swelling. IMPRESSION: Evidence of motion/loosening of the longstem femoral component as described with anterior cortical thinning and likely impending anterior cortical breakthrough/fracture of the tip of the stem. - FOLLOW UP Follow Up: Disposition: Home, Self Care Prescriptions: Ondansetron [Ondansetron Odt] 8 mg PO Q6HR PRN #20 tab.rapdis PRN Reason: Nausea / Vomiting Carvedilol 12.5 mg PO Q12H #60 tablet Levofloxacin [Levaquin] 750 mg PO DAILY #14 tablet Neutra-Phos [K-Phos Neutral] 250 mg PO TIDWM #60 tablet Phenazopyridine [Pyridium] 200 mg PO TID PRN #30 tablet PRN Reason: Bladder Spasms Prochlorperazine Maleate [Compazine] 10 mg PO QID PRN #20 tablet PRN Reason: Nausea / Vomiting Saccharomyces Boulardii [Florastor] 250 mg PO BID #28 capsule Health Concerns: Kidney infection, Chronic pain syndrome, Seizure disorder, Acute left hip/leg pain, Nausea/vomiting, Dysuria (burning with urination), Hypokalemia Plan of Treatment: Continue oral antibiotics for an extended course for kidney involvement Take a probiotic for twice as long as the antibiotics Use Zofran or Compazine for nausea at home, but this should continue to improve Use Pyridium for burning with urination Check with your neurologist on the dosing of Dilantin, your current level is 3.1 (should be 10-20) [place] your unstable left femur/hip, remain non-weight bearing to your left leg Follow up with your PCP within one week Care Goals: Prevent recurrence of infection Prevent hospital stays Manage nausea/vomiting Proceed with upcoming surgical procedure for your left leg/hip Assessment: Your urine culture was quick to result, which gives a clear path when it comes to antibiotic choices. Since your had improvement in your diet and have been improving each day, you are safe to return home today. Additional Instructions or Follow Up instructions: Your blood phosphorus level was low, so please start taking a medication called neutra-phos You have a condition called left ventricular hypertrophy, so Norvasc may not be the most ideal choice in treating your blood pressure and can cause swelling I have increased your coreg to 12.5 every 12 hours (max dose is 50 mg daily, so this can be further adjusted at a later date if needed) - TIME SPENT Time Spent in Discharge (Minutes): 55
[2019-04-12] MEDS ORDERED: levoFLOXacin 250 MG TABLET PO SCH (09:00)
--- NOTE | 2019-04-14 15:52 | ANESTHESIA PROCEDURE NOTE ---
Anesth Central Line Template - Central Line Central line type: Other (Addendum, PICC line was a 5 FR double lumen power p ort) Central line catheter tip site resides: Unspecified upper vein access Central line aftercare: Secured, Placement confirmed, No complications, Bundle checklist complete, Pt tolerated well
== END 2019-04-11 15:15 | disposition home or self-care (01) | DRG 690 ==
LOC: ED 13:10 → MS2 15:16
PROVIDERS: ADMIT Nurse Practitioner; ATTEND Nurse Practitioner
PROC: 05H633Z Insertion of Infusion Device into Left Subclavian Vein, Percutaneous Approach (ICD-10-PCS; principal; 2019-04-09)
DX: N12 Tubulo-interstitial nephritis, not specified as acute or chronic (principal); N10 Acute pyelonephritis; T84.031A Mechanical loosening of internal left hip prosthetic joint, initial encounter; R11.2 Nausea with vomiting, unspecified; I10 Essential (primary) hypertension; E87.6 Hypokalemia; G89.4 Chronic pain syndrome; E03.9 Hypothyroidism, unspecified; E86.0 Dehydration; J45.909 Unspecified asthma, uncomplicated; G40.909 Epilepsy, unspecified, not intractable, without status epilepticus; G47.00 Insomnia, unspecified; I27.20 Pulmonary hypertension, unspecified; I11.9 Hypertensive heart disease without heart failure; T42.6X6A Underdosing of other antiepileptic and sedative-hypnotic drugs, initial encounter; T42.0X6A Underdosing of hydantoin derivatives, initial encounter; T46.1X6A Underdosing of calcium-channel blockers, initial encounter; Y92.009 Unspecified place in unspecified non-institutional (private) residence as the place of occurrence of the external cause; Z91.138 Patient's unintentional underdosing of medication regimen for other reason; B96.20 Unspecified Escherichia coli [E. coli] as the cause of diseases classified elsewhere; M32.9 Systemic lupus erythematosus, unspecified; M79.7 Fibromyalgia; K21.9 Gastro-esophageal reflux disease without esophagitis; F32.9 Major depressive disorder, single episode, unspecified; F41.9 Anxiety disorder, unspecified; Z66 Do not resuscitate; Z79.899 Other long term (current) drug therapy; Z87.11 Personal history of peptic ulcer disease; Z87.442 Personal history of urinary calculi; Z86.19 Personal history of other infectious and parasitic diseases; Z99.3 Dependence on wheelchair; Z86.69 Personal history of other diseases of the nervous system and sense organs; Z86.14 Personal history of Methicillin resistant Staphylococcus aureus infection; Z79.891 Long term (current) use of opiate analgesic
CPT/HCPCS: 36415; 73552; 76770; 80048; 80053; 80185; 81001; 83605; 83690; 83735; 83880; 84100; 85025; 87040; 87086; 87181; 96361; 96374; 96375; 99283; 99285; A9270; C1751; J1170; 71045; 81003

== ENCOUNTER 2019-05-29 16:00 | Emergency (ER) | payer MEDICARE, MEDICAID ==
--- NOTE | 2019-05-29 16:39 | ED Physician Documentation ---
PD HPI SEIZURE - Stated complaint Stated Complaint: SEIZURES - Chief complaint Chief Complaint: Neuro - History obtained from History obtained from: Patient - History of Present Illness Timing - onset: Today Witnessed: Witnessed Number of seizures: Single Description of seizure activity: Generalized, Tonic clonic Injury during seizure: None Pain level max: 0 Pain level now: 0 History of seizures: Known seizure disorder - Additional information Additional information: states is supposed to have her dilantin levels checked, but there were no orders at the lab, so came here. Review of Systems Constitutional: denies: Fever, Chills Throat: denies: Sore throat Cardiac: denies: Chest pain / pressure Respiratory: denies: Cough GI: denies: Vomiting Musculoskeletal: denies: Neck pain, Back pain Neurologic: denies: Focal weakness, Numbness, Headache PD PAST MEDICAL HISTORY - Past Medical History Cardiovascular: Hypertension, High cholesterol Respiratory: Asthma, Pneumonia Neuro: TIA, Headaches, Migraines, Peripheral neuropathy, Seizure disorder, Other (fibromyalgia) Endocrine/Autoimmune: HyPOthyroidism, Systemic lupus erythematosus GI: GERD, Ulcers, C.difficile, Other (history of gastritis) OIL REFINER: Ovarian cancer : Incontinence (stress incontinence), Renal insuffiency, Nocturia, Frequency, Kidney stones HEENT: Chronic sinusitis Psych: Depression Musculoskeletal: Osteoarthritis, Osteoporosis, Fatigue, Chronic back pain, Other (wheel chair bound) Derm: Psoriasis - Past Surgical History Past Surgical History: Yes General: Appendectomy Ortho: Hip replacement (left), Spine surgery /OIL REFINER: 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, Oophrectomy - Present Medications Home Medications: Ambulatory Orders Medication Instructions Recorded Confirmed Omeprazole [PriLOSEC] 20 mg PO BID 02/09/18 05/29/19 Pregabalin [Lyrica] 100 mg PO TID 02/09/18 05/29/19 levETIRAcetam [Keppra] 500 mg PO BID 02/09/18 05/29/19 Phenytoin Sodium Extended 300 mg PO QPM 03/16/18 05/29/19 Cetirizine [ZyrTEC] 10 mg PO DAILY 09/06/18 05/29/19 Melatonin 5 mg PO QPM PRN 09/06/18 05/29/19 Magnesium Oxide [Magnesium] 500 mg PO DAILY 09/14/18 05/29/19 diphenhydrAMINE [Benadryl] 25 mg PO PRN PRN 09/14/18 05/29/19 Methocarbamol 750 mg PO QID 09/20/18 05/29/19 Oxycodone HCl/Acetaminophen 1 tab PO TID PRN 04/09/19 05/29/19 [Oxycodone-Acetaminophen 10-325] Potassium Citrate [Potassium 40 meq PO TIDWM 04/09/19 05/29/19 Citrate ER] Spironolactone 50 mg PO BID 04/09/19 05/29/19 Carvedilol 12.5 mg PO Q12H #60 tablet 04/11/19 05/29/19 Ondansetron [Ondansetron Odt] 8 mg PO Q6HR PRN #20 tab.rapdis 04/11/19 05/29/19 Phenazopyridine [Pyridium] 200 mg PO TID PRN #30 tablet 04/11/19 05/29/19 Prochlorperazine Maleate 10 mg PO QID PRN #20 tablet 04/11/19 05/29/19 [Compazine] Levofloxacin [Levaquin] 750 mg PO DAILY PRN 05/29/19 05/29/19 Oxycodone HCl [Oxycontin] 05/29/19 - Allergies Allergies/Adverse Reactions: Allergies Allergy/AdvReac Type Severity Reaction Status Date / Time Penicillins Allergy Severe Respiratory Verified 04/09/19 13:18 bacitracin Allergy Mild Hives Verified 04/09/19 13:18 [From Neosporin ([id number])] bacitracin zinc * Allergy Mild Itching Verified 04/09/19 13:18 [From Neosporin ([id number])] neomycin sulfate * Allergy Mild Itching Verified 04/09/19 13:18 [From Neosporin ([id number])] venom-honey bee Allergy Unknown Verified 04/09/19 13:18 [bee venom (honey bee)] ciprofloxacin AdvReac Emesis Verified 04/09/19 13:18 - Social History Does the pt smoke?: No Smoking Status: Never smoker Does the pt drink ETOH?: No Does the pt have substance abuse?: No - Immunizations Immunizations are current?: Yes - POLST Patient has POLST: Yes POLST Status: DNR PD ED PE NORMAL - Vitals Vital signs reviewed: Yes - General General: Alert and oriented X 3, No acute distress - HEENT HEENT: Atraumatic, PERRL, Moist mucous membranes - Neck Neck: Supple, no meningeal sign, No bony TTP - Cardiac Cardiac: RRR - Respiratory Respiratory: No respiratory distress, Clear bilaterally - Abdomen Abdomen: Soft, Non tender, Non distended - Back Back: No spinal TTP - Derm Derm: Warm and dry - Extremities Extremities: No tenderness to palpate - Neuro Neuro: Alert and oriented X 3, excel analyst 2-12 intact, No motor deficit, No sensory deficit, Normal speech Eye Opening: Spontaneous Motor: Obeys Commands Verbal: Oriented GCS Score: 15 Results - Vitals Vitals: Vital Signs - 24 hr 05/29/19 05/29/19 16:06 17:07 Temperature 36.9 C Heart Rate 95 90 Respiratory 16 16 Rate Blood Pressure 145/75 H 140/78 H O2 Saturation 98 98 Oxygen O2 Source Room air - Labs Labs: Laboratory Tests 05/29/19 05/29/19 05/29/19 16:40 16:40 16:40 WBC 17.7 H RBC 4.04 L Hgb 11.7 L Hct 35.9 L MCV 88.9 MCH 29.0 MCHC 32.6 RDW 13.6 Plt Count 376 MPV 9.4 Neut # (Auto) 13.2 H Lymph # (Auto) 2.4 [place] # (Auto) 1.2 H Eos # (Auto) 0.7 Baso # (Auto) 0.1 Absolute Nucleated RBC 0.00 Nucleated RBC % 0.0 Sodium 139 Potassium 3.5 Chloride 107 Carbon Dioxide 21 Anion Gap 11.0 BUN 10 Creatinine 0.6 Estimated GFR (MDRD) 104 Glucose 138 H Calcium 8.9 Urine Color YELLOW Urine Clarity CLEAR Urine pH 6.0 Ur Specific [place] <=1.005 Urine Protein NEGATIVE Urine Glucose (UA) NEGATIVE Urine Ketones NEGATIVE Urine Occult Blood SMALL H Urine Nitrite NEGATIVE Urine Bilirubin NEGATIVE Urine Urobilinogen 0.2 (NORMAL) Ur Leukocyte Esterase NEGATIVE Urine RBC 0-5 Urine WBC 0-3 Ur Squamous Epith Cells RARE Squamous Urine Bacteria Rare Ur Microscopic Review INDICATED Urine Culture Comments NOT INDICATED Phenytoin 4.1 PD MEDICAL DECISION MAKING - ED course Complexity details: reviewed results, re-evaluated patient, considered differential, d/w patient, d/w family ED course: No significant laboratory abnormalities. Has a history of hypokalemia, so her potassium was checked. Also has a history of recurrent UTIs. Not infected today. Her Dilantin level is low. I recommend that she follow-up with her neur ologist tomorrow to discuss whether she should taper off the Dilantin and increase the Keppra or whether they want to keep her on both. Patient counseled regarding signs and symptoms for which I believe and urgent re-evaluation would be necessary. Patient with good understanding of and agreement to plan and is comfortable going home at this time This document was made in part using voice recognition software. While efforts are made to proofread this document, sound alike and grammatical errors may occur. Departure - Departure Disposition: 01 Home, Self Care Clinical Impression: Recurrent seizures Condition: Good Instructions: ED Seizure Recurrent Follow-Up: Quiana Jin DO [Primary Care Provider] - Within 1 week Comments: Your phenytoin level is 4.1 today. Contact your neurologist tomorrow to determine how they would like you to adjust this medication. Return if you worsen Discharge Date/Time: 05/29/19 17:07
[2019-05-29 16:46] LABS: BASOPHILS # (AUTO) 0.1 10^3/uL (0.0-0.1); BASOPHILS % (AUTO) 0.3 %; EOSINOPHILS # (AUTO) 0.7 10^3/uL (0.0-0.7); EOSINOPHILS % (AUTO) 4.1 %; HGB - HEMOGLOBIN 11.7 g/dL (12.0-16.0); LYMPHOCYTES # (AUTO) 2.4 10^3/uL (1.5-3.5); LYMPHOCYTES % (AUTO) 13.5 %; MEAN CORPUSCULAR HGB CONC 32.6 g/dL (32.0-36.0); MEAN CORPUSCULAR VOLUME 88.9 fL (81.0-99.0); MEAN PLATELET VOLUME 9.4 fL (7.9-10.8); MONOCYTES # (AUTO) 1.2 10^3/uL (0.0-1.0); MONOCYTES % (AUTO) 6.9 %; NEUTROPHILS # (AUTO) 13.2 10^3/uL (1.5-6.6); NEUTROPHILS % (AUTO) 74.5 %; PLT - PLATELET COUNT 376 10^3/uL (130-450); RED BLOOD COUNT 4.04 10^6/uL (4.20-5.40); RED CELL DISTRIBUTION WIDTH 13.6 % (12.0-15.0); WHITE BLOOD COUNT 17.7 x10^3/uL (4.8-10.8)
[2019-05-29 16:52] LABS: BILIRUBIN,URINE NEGATIVE (NEGATIVE); GLUCOSE, URINE (UA) NEGATIVE (NEGATIVE); KETONES,URINE (UA) NEGATIVE (NEGATIVE); LEUKOCYTE ESTERASE, URINE NEGATIVE (NEGATIVE); NITRITE,URINE NEGATIVE (NEGATIVE); OCCULT BLOOD,URINE SMALL (NEGATIVE); PROTEIN,URINE NEGATIVE (NEGATIVE); UROBILINOGEN,URINE 0.2 (NORMAL) E.U./dL (NORMAL)
[2019-05-29 16:53] LABS: CLARITY,URINE CLEAR (CLEAR)
[2019-05-29 16:56] LABS: CALCIUM 8.9 mg/dL (8.5-10.3); CREATININE 0.6 mg/dL (0.4-1.0); PHENYTOIN (DILANTIN) 4.1 ug/mL
[2019-05-29 17:08] VITALS: BP 140/78
[2019-05-29 17:12] LABS: BACTERIA,URINE Rare /HPF (None Seen); RBC,URINE 0-5 /HPF (0-5); SQUAMOUS EPITHELIAL CELL,UR RARE Squamous (<= Few)
== END 2019-05-29 17:07 | disposition home or self-care (01) ==
LOC: ED 16:00
DX: G40.909 Epilepsy, unspecified, not intractable, without status epilepticus (principal); M32.9 Systemic lupus erythematosus, unspecified; I10 Essential (primary) hypertension
CPT/HCPCS: 36415; 80048; 80185; 81001; 81003; 85025; 87086; 99283; 99284

== ENCOUNTER 2019-08-20 13:15 | Outpatient (CLI) | payer MEDICARE, MEDICAID | END 2019-08-20 13:16 | disposition critical access hospital (66) | LOC: EMS 13:15 | PROVIDERS: ATTEND Surgery | DX: M25.552 Pain in left hip (principal); W06.XXXA Fall from bed, initial encounter; Y92.003 Bedroom of unspecified non-institutional (private) residence as the place of occurrence of the external cause | CPT/HCPCS: A0425; A0427 ==

== ENCOUNTER 2019-08-20 13:39 | Emergency (ER) | payer MEDICARE, MEDICAID ==
[2019-08-20] MEDS ORDERED: HYDROmorphone 2 MG TABLET PO STA (14:41)
--- NOTE | 2019-08-20 14:44 | ED Physician Documentation ---
History of Present Illness - Stated complaint Stated Complaint: GLF/ L HIP PAIN - Chief complaint Chief Complaint: Trauma Ext - History obtained from History obtained from: Patient - History of Present Illness Timing: How many days ago (5) Pain level max: 9 Pain level now: 9 Improved by: rest Worsened by: movement - Additonal information Additional information: Patient has a history of a left hip replacement, complicated by infection, antibiotic beads and now has difficulty ambulating at home. She fell 5 days ago onto the left side. Has had continued pain since that time. Worse with movement and better with rest. She is normally toe-touch weightbearing. She is on oxycodone and OxyContin at home for pain. No head injury. No neck or back pain. No numbness or tingling. Has pain to the left hip and left pelvis. 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 PUBLIC: Ovarian cancer : Incontinence, Renal insuffiency, Nocturia, Frequency, Kidney stones HEENT: Chronic sinusitis Psych: Depression Musculoskeletal: Osteoarthritis, Osteoporosis, Fatigue, Chronic back pain, Other Derm: Psoriasis Other Past Medical History: osteomyolitis - Past Surgical History Past Surgical History: Yes General: Appendectomy Ortho: Hip replacement, Spine surgery /TAX MANAGER PUBLIC: 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, Oophrectomy - Present Medications Home Medications: Ambulatory Orders Medication Instructions Recorded Confirmed Omeprazole [PriLOSEC] 20 mg PO BID 02/09/18 05/29/19 Pregabalin [Lyrica] 100 mg PO TID 02/09/18 05/29/19 levETIRAcetam [Keppra] 500 mg PO BID 02/09/18 05/29/19 Phenytoin Sodium Extended 300 mg PO QPM 03/16/18 05/29/19 Cetirizine [ZyrTEC] 10 mg PO DAILY 09/06/18 05/29/19 Melatonin 5 mg PO QPM PRN 09/06/18 05/29/19 Magnesium Oxide [Magnesium] 500 mg PO DAILY 09/14/18 05/29/19 diphenhydrAMINE [Benadryl] 25 mg PO PRN PRN 09/14/18 05/29/19 Methocarbamol 750 mg PO QID 09/20/18 05/29/19 Oxycodone HCl/Acetaminophen 1 tab PO TID PRN 04/09/19 05/29/19 [Oxycodone-Acetaminophen 10-325] Potassium Citrate [Potassium 40 meq PO TIDWM 04/09/19 05/29/19 Citrate ER] Spironolactone 50 mg PO BID 04/09/19 05/29/19 Ondansetron [Ondansetron Odt] 8 mg PO Q6HR PRN #20 tab.rapdis 04/11/19 05/29/19 Phenazopyridine [Pyridium] 200 mg PO TID PRN #30 tablet 04/11/19 05/29/19 Prochlorperazine Maleate 10 mg PO QID PRN #20 tablet 04/11/19 05/29/19 [Compazine] carvediloL [Carvedilol] 12.5 mg PO Q12H #60 tablet 04/11/19 05/29/19 Levofloxacin [Levaquin] 750 mg PO DAILY PRN 05/29/19 05/29/19 Oxycodone HCl [Oxycontin] 05/29/19 HYDROmorphone [Dilaudid] 2 mg PO Q4H PRN #7 tablet 08/20/19 - Allergies Allergies/Adverse Reactions: Allergies Allergy/AdvReac Type Severity Reaction Status Date / Time Penicillins Allergy Severe Respiratory Verified 08/20/19 13:44 bacitracin Allergy Mild Hives Verified 08/20/19 13:44 [From Neosporin ([id number])] bacitracin zinc * Allergy Mild Itching Verified 08/20/19 13:44 [From Neosporin ([id number])] neomycin sulfate * Allergy Mild Itching Verified 08/20/19 13:44 [From Neosporin ([id number])] lamotrigine Allergy Itching Verified 08/20/19 13:44 venom-honey bee Allergy Unknown Verified 08/20/19 13:44 [bee venom (honey bee)] ciprofloxacin AdvReac Emesis Verified 08/20/19 13:44 - Social History Does the pt smoke?: No Smoking Status: Former smoker Does the pt drink ETOH?: No Does the pt have substance abuse?: No - Immunizations Immunizations are current?: Yes - POLST Patient has POLST: Yes POLST Status: DNR PD ED PE NORMAL - Vitals Vital signs reviewed: Yes - General General: Alert and oriented X 3, No acute distress, Other (obese female) - HEENT HEENT: Moist mucous membranes - Neck Neck: Supple, no meningeal sign - Cardiac Cardiac: RRR, Strong equal pulses - Respiratory Respiratory: No respiratory distress, Clear bilaterally - Abdomen Abdomen: Soft, Non tender, Non distended - Derm Derm: Warm and dry - Extremities Extremities: Other (Tender to palpation over the left hip. No deformity. Neurovascular intact. Limited range of motion secondary to pain. No skin changes.) - Neuro Neuro: Alert and oriented X 3 - Psych Psych: Normal mood, Normal affect Results - Vitals Vitals: Vital Signs - 24 hr 08/20/19 08/20/19 08/20/19 13:45 13:55 15:23 Temperature 36.6 C Heart Rate 66 70 73 Respiratory 16 16 18 Rate Blood Pressure 149/98 H 154/82 H 121/70 O2 Saturation 98 98 98 08/20/19 16:48 Temperature 36.7 C Heart Rate 76 Respiratory 18 Rate Blood Pressure 122/78 O2 Saturation 96 Oxygen O2 Source Room air - Rads (name of study) L hip xray Radiology: Prelim report reviewed, EMP read contemporaneously, See rad report (. Status post left hip arthroplasty. Cemented acetabular component is unchanged. Multiple cerclage wires in the proximal left femur diaphysis remain stable. Persistent lucency is seen along the tip of the left femoral component is noted. Anterior proximal left femur cortical thinning near the tip of the left femoral component consistent with loosening. 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 2. No new fractures are noted. 3. Normal alignment. ) PD MEDICAL DECISION MAKING - ED course Complexity details: reviewed results, re-evaluated patient, considered differential, d/w patient ED course: 54-year-old female with left hip pain after a fall 5 days ago. No acute findings on x-ray. Pain improved with oral Dilaudid. Feels much better. I discussed the case with her pain specialist, IMELDA Moctezuma. Will prescribe a small amount of Dilaudid for her for home. Patient counseled regarding signs and symptoms for which I believe and urgent re-evaluation would be necessary. Patient with good understanding of and agreement to plan and is comfortable going home at this time This document was made in part using voice recognition software. While efforts are made to proofread this document, sound alike and grammatical errors may occur. Departure - Departure Disposition: 01 Home, Self Care Clinical Impression: Hip pain, left Condition: Good Instructions: ED Contusion Hip Follow-Up: Quiana Jin DO [Primary Care Provider] - Within 1 week Prescriptions: HYDROmorphone [Dilaudid] 2 mg PO Q4H PRN #7 tablet PRN Reason: hip pain Comments: Use the medication as prescribed. I did speak with your pain management doctor randall. Your x-ray does not show any acute abnormalities. Return if you worsen. Do not drink alcohol or drive while on narcotic pain medicine. Note that many narcotic pain relievers also contain tylenol/acetaminophen. Please ensure that your total dose of acetaminophen from all sources does not exceed 3 grams (3000mg) per day. You may constipated on this medication, take a stool softener such as "Colace" twice a day while you are on it. Also recommend a duxy-ndr-[id number] laxative such as senna or MiraLAX any day that you do not have a bowel movement. If you received narcotic pain medication in the emergency department, do not drive or operate machinery for the next 24 hours. Discharge Date/Time: 08/20/19 17:10
--- NOTE | 2019-08-20 15:30 | XRAY Report ---
Reason: fall, L hip pain Procedure Date: 08/20/2019 Accession Number: [id number] / [id number] Procedure: XR - Hip w/Pelvis 2-3V LT CPT Code: Final Report FULL RESULT: EXAM: LEFT HIP RADIOGRAPHY EXAM DATE: 08/20/2019 03:01 PM. CLINICAL HISTORY: Fall, left hip pain. COMPARISON: HIP 1 VIEW LT 12/24/2017 9:07 AM FEMUR 2V LT 04/11/2019 8:45 AM. TECHNIQUE: 2 views. FINDINGS: Bones: Redemonstration of nonunited left greater and lesser trochanter fracture fragments is noted. Multiple cerclage wires are noted in the proximal left femur diaphysis. No new fractures are identified. As before, lucency along the tip of the left femoral component is noted with remodeling of the anterior cortex of the femur. Joints: Stable positioning and appearance of the cemented left acetabular component. Cemented left femur arthroplasty component is in unchanged position. Soft Tissues: Normal. No soft tissue swelling. IMPRESSION: 1. Status post left hip arthroplasty. Cemented acetabular component is unchanged. Multiple cerclage wires in the proximal left femur diaphysis remain stable. Persistent lucency is seen along the tip of the left femoral component is noted. Anterior proximal left femur cortical thinning near the tip of the left femoral component consistent with loosening. 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 2. No new fractures are noted. 3. Normal alignment. RADIA
[2019-08-20] MEDS ORDERED: ONDANSETRON ODT 4 MG TABLET TL STA (15:38)
[2019-08-20 16:48] VITALS: BP 122/78
== END 2019-08-20 17:10 | disposition home or self-care (01) ==
LOC: EDUNIT# → ED 13:39
DX: M25.552 Pain in left hip (principal); I10 Essential (primary) hypertension; Z87.891 Personal history of nicotine dependence
CPT/HCPCS: 73502; 99283; 99284; A9270; Q0162

== ENCOUNTER 2019-10-04 19:42 | Outpatient (CLI) | payer MEDICARE, MEDICAID | END 2019-10-04 19:43 | disposition critical access hospital (66) | LOC: EMS 19:42 | PROVIDERS: ATTEND Surgery | DX: M54.9 Dorsalgia, unspecified (principal); R11.2 Nausea with vomiting, unspecified; R53.83 Other fatigue; R39.89 Other symptoms and signs involving the genitourinary system | CPT/HCPCS: A0425; A0427 ==

== ENCOUNTER 2019-10-04 19:57 | Emergency (ER) | payer MEDICARE, MEDICAID ==
--- NOTE | 2019-10-04 20:23 | ED Physician Documentation ---
History of Present Illness - Stated complaint Stated Complaint: RT KIDNEY PX - Chief complaint Chief Complaint: Abd Pain - History obtained from History obtained from: Patient, Family - History of Present Illness Timing: How many days ago (3) Pain level now: 4 Improved by: nothing Worsened by: no exacerbating factors - Additonal information Additional information: Patient complains of three days of right flank pain. She says I can smell the blood in my urine. nausea, vomiting. denied dysuria or frequency. when I first ask her her symptoms, she states I have a kidney infection Review of Systems Constitutional: reports: Fever (in ED, but was unaware of fevers at home). denies: Chills, Sweats Cardiac: reports: Reviewed and negative Respiratory: reports: Reviewed and negative GI: reports: Abdominal Pain (right flank), Nausea, Vomiting : denies: Dysuria, Frequency Musculoskeletal: reports: Reviewed and negative Neurologic: reports: Headache PD PAST MEDICAL HISTORY - Past Medical History Past Medical History: Yes Cardiovascular: Hypertension, High cholesterol Respiratory: Asthma, Pneumonia Neuro: TIA, Headaches, Migraines, Peripheral neuropathy, Seizure disorder, Other Endocrine/Autoimmune: HyPOthyroidism, Systemic lupus erythematosus GI: GERD, Ulcers, C.difficile, 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: Ovarian cancer : Incontinence, Renal insuffiency, Nocturia, Frequency, Kidney stones HEENT: Chronic sinusitis Psych: Depression Musculoskeletal: Osteoarthritis, Osteoporosis, Fatigue, Chronic back pain, Other Derm: Psoriasis - Past Surgical History Past Surgical History: Yes General: Appendectomy Ortho: Hip replacement, Spine surgery /ASSISTANT PROFESSOR OF HISTORY: 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, Oophrectomy - Present Medications Home Medications: Ambulatory Orders Medication Instructions Recorded Confirmed Omeprazole [PriLOSEC] 20 mg PO BID 02/09/18 05/29/19 Pregabalin [Lyrica] 100 mg PO TID 02/09/18 05/29/19 levETIRAcetam [Keppra] 500 mg PO BID 02/09/18 05/29/19 Phenytoin Sodium Extended 300 mg PO QPM 03/16/18 05/29/19 Cetirizine [ZyrTEC] 10 mg PO DAILY 09/06/18 05/29/19 Melatonin 5 mg PO QPM PRN 09/06/18 05/29/19 Magnesium Oxide [Magnesium] 500 mg PO DAILY 09/14/18 05/29/19 diphenhydrAMINE [Benadryl] 25 mg PO PRN PRN 09/14/18 05/29/19 methocarbamoL [Methocarbamol] 750 mg PO QID 09/20/18 05/29/19 Oxycodone HCl/Acetaminophen 1 tab PO TID PRN 04/09/19 05/29/19 [Oxycodone-Acetaminophen 10-325] Potassium Citrate [Potassium 40 meq PO TIDWM 04/09/19 05/29/19 Citrate ER] Spironolactone 50 mg PO BID 04/09/19 05/29/19 Ondansetron [Ondansetron Odt] 8 mg PO Q6HR PRN #20 tab.rapdis 04/11/19 05/29/19 Phenazopyridine [Pyridium] 200 mg PO TID PRN #30 tablet 04/11/19 05/29/19 Prochlorperazine Maleate 10 mg PO QID PRN #20 tablet 04/11/19 05/29/19 [Compazine] carvediloL [Carvedilol] 12.5 mg PO Q12H #60 tablet 04/11/19 05/29/19 Levofloxacin [Levaquin] 750 mg PO DAILY PRN 05/29/19 05/29/19 Oxycodone HCl [Oxycontin] 05/29/19 HYDROmorphone [Dilaudid] 2 mg PO Q4H PRN #7 tablet 08/20/19 - Allergies Allergies/Adverse Reactions: Allergies Allergy/AdvReac Type Severity Reaction Status Date / Time Penicillins Allergy Severe Respiratory Verified 10/04/19 20:07 bacitracin Allergy Mild Hives Verified 10/04/19 20:07 [From Neosporin ([id number])] bacitracin zinc * Allergy Mild Itching Verified 10/04/19 20:07 [From Neosporin ([id number])] neomycin sulfate * Allergy Mild Itching Verified 10/04/19 20:07 [From Neosporin ([id number])] lamotrigine Allergy Itching Verified 10/04/19 20:07 venom-honey bee Allergy Unknown Verified 10/04/19 20:07 [bee venom (honey bee)] ciprofloxacin AdvReac Emesis Verified 10/04/19 20:07 - Social History Does the pt smoke?: No Smoking Status: Never smoker Does the pt drink ETOH?: No Does the pt have substance abuse?: No - Immunizations Immunizations are current?: Yes - POLST Patient has POLST: Yes POLST Status: DNR PD ED PE NORMAL - Vitals Vital signs reviewed: Yes - General General: Alert and oriented X 3, No acute distress, Well developed/nourished - HEENT HEENT: PERRL, EOMI, Moist mucous membranes - Neck Neck: Supple, no meningeal sign - Cardiac Cardiac: RRR, No murmur, No gallop, No rub - Respiratory Respiratory: No respiratory distress, Clear bilaterally - Abdomen Abdomen: Soft, Non distended, Other (mild right abd ttp without rebound or guarding) - Derm Derm: No rash - Neuro Neuro: Alert and oriented X 3 Results - Vitals Vitals: Oxygen O2 Source Room air - Labs Labs: Microbiology 10/04/19 21:55 Blood Culture - Preliminary Blood - Right Iv-Start NO GROWTH AFTER 1 DAY Laboratory Tests 10/04/19 10/04/19 10/04/19 20:55 21:55 21:55 WBC 15.0 H RBC 4.59 Hgb 12.9 Hct 39.6 MCV 86.3 MCH 28.1 MCHC 32.6 RDW 15.4 H Plt Count 453 H MPV 9.5 Neut # (Auto) 12.3 H Lymph # (Auto) 1.4 L [place] # (Auto) 1.0 Eos # (Auto) 0.0 Baso # (Auto) 0.0 Absolute Nucleated RBC 0.00 Nucleated RBC % 0.0 Sodium Potassium Chloride Carbon Dioxide Anion Gap BUN Creatinine Estimated GFR (MDRD) Glucose Lactic Acid 1.5 Calcium Total Bilirubin AST ALT Alkaline Phosphatase Total Protein Albumin Globulin Albumin/Globulin Ratio Lipase Urine Color BROWN Urine Clarity HAZY Urine pH 6.0 Ur Specific [place] >=1.030 H Urine Protein >=300 H Urine Glucose (UA) NEGATIVE Urine Ketones >=80 H Urine Occult Blood LARGE H Urine Nitrite NEGATIVE Urine Bilirubin NEGATIVE Urine Urobilinogen 0.2 (NORMAL) Ur Leukocyte Esterase NEGATIVE Urine RBC TNTC H Urine WBC 0-3 Ur Squamous Epith Cells FEW Squamous Urine Bacteria None Seen Urine Mucus Moderate Strands Ur Microscopic Review INDICATED Urine Culture Comments NOT INDICATED Influenza A (Rapid) Influenza B (Rapid) 10/04/19 10/04/19 22:00 22:15 WBC RBC Hgb Hct MCV MCH MCHC RDW Plt Count MPV Neut # (Auto) Lymph # (Auto) [place] # (Auto) Eos # (Auto) Baso # (Auto) Absolute Nucleated RBC Nucleated RBC % Sodium 131 L Potassium 3.1 L Chloride 101 Carbon Dioxide 15 L Anion Gap 15.0 H BUN 17 Creatinine 0.7 Estimated GFR (MDRD) 87 L Glucose 163 H Lactic Acid Calcium 8.7 Total Bilirubin 1.0 AST 13 ALT 13 Alkaline Phosphatase 179 H Total Protein 7.6 Albumin 4.3 Globulin 3.3 Albumin/Globulin Ratio 1.3 Lipase 21 L Urine Color Urine Clarity Urine pH Ur Specific [place] Urine Protein Urine Glucose (UA) Urine Ketones Urine Occult Blood Urine Nitrite Urine Bilirubin Urine Urobilinogen Ur Leukocyte Esterase Urine RBC Urine WBC Ur Squamous Epith Cells Urine Bacteria Urine Mucus Ur Microscopic Review Urine Culture Comments Influenza A (Rapid) Negative Influenza B (Rapid) Negative - Rads (name of study) CT a/p Radiology: Prelim report reviewed, See rad report chest xray Radiology: Prelim report reviewed, See rad report PD MEDICAL DECISION MAKING - ED course Complexity details: reviewed old records, reviewed results, re-evaluated patient, considered differential, d/w patient, d/w family ED course: no source for fever revealed on this w/u. UA is nit consistent with UTI/pyelo, nor is CT result. she is in NAD at time of discharge Departure - Departure Disposition: 01 Home, Self Care Clinical Impression: Leukocytosis, Fever Condition: Good Instructions: ED Fever Unconf Cause Follow-Up: Quiana Jin DO [Primary Care Provider] - Discharge Date/Time: 10/05/19 04:25
[2019-10-04] MEDS ORDERED: ACETAMINOPHEN 325 MG TABLET PO STA (20:37)
[2019-10-04 21:05] LABS: GLUCOSE, URINE (UA) NEGATIVE (NEGATIVE); KETONES,URINE (UA) >=80 mg/dL (NEGATIVE); LEUKOCYTE ESTERASE, URINE NEGATIVE (NEGATIVE); NITRITE,URINE NEGATIVE (NEGATIVE); OCCULT BLOOD,URINE LARGE (NEGATIVE); PROTEIN,URINE >=300 mg/dL (NEGATIVE); UROBILINOGEN,URINE 0.2 (NORMAL) E.U./dL (NORMAL)
[2019-10-04 21:06] LABS: BILIRUBIN,URINE NEGATIVE (NEGATIVE); CLARITY,URINE HAZY (CLEAR); ICTOTEST,URINE NEGATIVE
[2019-10-04 21:14] LABS: BACTERIA,URINE None Seen /HPF (None Seen); MUCUS,URINE Moderate Strands; RBC,URINE TNTC /HPF (0-5); SQUAMOUS EPITHELIAL CELL,UR FEW Squamous (<= Few)
[2019-10-04 22:02] LABS: BASOPHILS % (AUTO) 0.2 %; EOSINOPHILS % (AUTO) 0.3 %; HGB - HEMOGLOBIN 12.9 g/dL (12.0-16.0); LYMPHOCYTES # (AUTO) 1.4 10^3/uL (1.5-3.5); LYMPHOCYTES % (AUTO) 9.5 %; MEAN CORPUSCULAR HEMOGLOBIN 28.1 pg (27.0-31.0); MEAN CORPUSCULAR HGB CONC 32.6 g/dL (32.0-36.0); MEAN CORPUSCULAR VOLUME 86.3 fL (81.0-99.0); MEAN PLATELET VOLUME 9.5 fL (7.9-10.8); MONOCYTES % (AUTO) 6.6 %; NEUTROPHILS # (AUTO) 12.3 10^3/uL (1.5-6.6); NEUTROPHILS % (AUTO) 82.3 %; PLT - PLATELET COUNT 453 10^3/uL (130-450); RED BLOOD COUNT 4.59 10^6/uL (4.20-5.40); RED CELL DISTRIBUTION WIDTH 15.4 % (12.0-15.0)
--- NOTE | 2019-10-04 22:39 | XRAY Report ---
Reason: fever Procedure Date: 10/04/2019 Accession Number: [id number] / [id number] Procedure: XR - Chest 2 View X-Ray CPT Code: 06919 Final Report FULL RESULT: EXAM: CHEST RADIOGRAPHY EXAM DATE: 10/04/2019 10:19 PM. CLINICAL HISTORY: Fever. COMPARISON: 04/09/2019 6:09 PM CHEST 2 VIEW 02/09/2018 2:38 PM. TECHNIQUE: 2 views. FINDINGS: Lungs/Pleura: No consolidation, focal airspace disease, pleural effusion or pneumothorax. Mediastinum: Heart and mediastinal contours are unremarkable. Other: Breathing motion artifact on the lateral view limits the exam. New mild T5 superior endplate compression fracture deformity, age indeterminate. IMPRESSION: No acute cardiopulmonary disease seen. Limited on the lateral view. Breathing motion artifact on the lateral view limits the exam. New mild T5 superior endplate compression fracture deformity, age indeterminate. RADIA
[2019-10-04 23:07] LABS: ALBUMIN 4.3 g/dL (3.2-5.5); ALBUMIN/GLOBULIN RATIO 1.3 (1.0-2.2); CALCIUM 8.7 mg/dL (8.5-10.3); CREATININE 0.7 mg/dL (0.4-1.0); TOTAL PROTEIN 7.6 g/dL (6.7-8.2)
[2019-10-05] MEDS ORDERED: IOVERSOL 320 100 ML VIAL IVP ONE ×2 (02:18→02:58)
--- NOTE | 2019-10-05 03:15 | CT Report ---
Reason: fever, abd. pain, tenderness Procedure Date: 10/05/2019 Accession Number: [id number] / [id number] Procedure: CT - Abdomen/Pelvis W CPT Code: Final Report FULL RESULT: EXAM: CT ABDOMEN AND PELVIS EXAM DATE: 10/05/2019 02:59 AM. CLINICAL HISTORY: Fever, abd. pain, tenderness. COMPARISONS: ABDOMEN/PELVIS W/O 11/05/2018 6:39 PM. TECHNIQUE: Routine helical CT imaging was performed through the abdomen and pelvis. IV contrast: OPTIRAY 320. Enteric contrast: No. Reconstructions: Coronal and sagittal. In accordance with CT protocol optimization, one or more of the following dose reduction techniques were utilized for this exam: automated exposure control, adjustment of mA and/or KV based on patient size, or use of iterative reconstructive technique. FINDINGS: Lung Bases: Small hiatal hernia. Liver: Normal. No masses. Gallbladder/Bile Ducts: Postoperative changes of cholecystectomy. No biliary dilatation. Spleen: Normal. Pancreas: Normal. Adrenal Glands: Normal. Kidneys: Normal. No masses or hydronephrosis. Peritoneal Cavity/Bowel: Normal. No free fluid, free air or adenopathy. No masses or acute inflammatory process. The appendix is not confidently identified, but no claudia-cecal inflammation or abnormal fluid collection is seen to suggest acute appendicitis. Pelvic Organs: Normal. The bladder and visualized pelvic organs are within normal limits. Vasculature: No aneurysms or other significant abnormality. Bones: Degenerative changes. Previous left hip replacement. Other: None. IMPRESSION: Postoperative changes of cholecystectomy. No bowel obstruction or perforation. No evident etiology for patient's fever and pain. RADIA
[2019-10-05] MEDS ORDERED: ACETAMINOPHEN 325 MG TABLET PO STA (04:15)
[2019-10-05 04:20] VITALS: BP 174/89
== END 2019-10-05 04:25 | disposition home or self-care (01) ==
LOC: EDUNIT# → ED 19:57
DX: D72.829 Elevated white blood cell count, unspecified (principal); R50.9 Fever, unspecified; R10.9 Unspecified abdominal pain; R11.2 Nausea with vomiting, unspecified; I10 Essential (primary) hypertension; K21.9 Gastro-esophageal reflux disease without esophagitis; K44.9 Diaphragmatic hernia without obstruction or gangrene; Z87.19 Personal history of other diseases of the digestive system; Z87.442 Personal history of urinary calculi; Z90.49 Acquired absence of other specified parts of digestive tract; M32.9 Systemic lupus erythematosus, unspecified; Z66 Do not resuscitate
CPT/HCPCS: 36415; 71046; 74177; 80053; 81001; 83605; 83690; 85025; 87040; 87275; 87276; 99284; A9270; Q9967; 81003; 87086

== ENCOUNTER 2019-10-26 14:38 | Outpatient (CLI) | payer MEDICARE, MEDICAID ==
[2019-10-26 15:21] LABS: BILIRUBIN,URINE NEGATIVE (NEGATIVE); GLUCOSE, URINE (UA) NEGATIVE (NEGATIVE); KETONES,URINE (UA) NEGATIVE (NEGATIVE); LEUKOCYTE ESTERASE, URINE NEGATIVE (NEGATIVE); NITRITE,URINE NEGATIVE (NEGATIVE); OCCULT BLOOD,URINE SMALL (NEGATIVE); PH,URINE 6.5 PH (5.0-7.5); PROTEIN,URINE NEGATIVE (NEGATIVE); UROBILINOGEN,URINE 0.2 (NORMAL) E.U./dL (NORMAL)
[2019-10-26 15:27] LABS: CLARITY,URINE CLEAR (CLEAR)
[2019-10-26 16:50] LABS: BACTERIA,URINE Few /HPF (None Seen); SQUAMOUS EPITHELIAL CELL,UR MOD Squamous (<= Few)
== END 2019-10-26 14:39 | disposition home or self-care (01) ==
LOC: LAB 14:38
PROVIDERS: ATTEND Internal Medicine Nephrology
DX: N30.00 Acute cystitis without hematuria (principal)
CPT/HCPCS: 81001; 87086

== ENCOUNTER 2019-10-31 09:47 | Emergency (ER) | payer MEDICARE, MEDICAID ==
--- NOTE | 2019-10-31 10:08 | ED Physician Documentation ---
PD HPI NVD - Stated complaint Stated Complaint: VOMITING - Chief complaint Chief Complaint: Back Pain - History obtained from History obtained from: Patient - History of Present Illness Timing - onset: How many days ago (3) Timing - duration: Days (3) Timing - details: Abrupt onset (Onset last Thursday night (with today being Thursday) of nausea and vomiting without any abdominal pain. She had diarrhea the following morning that lasted for a good part of the day and then firmed up. She developed some flank pain on the right side to the right low abdomen on Thursday as well.) Associated symptoms: Abdominal pain (right abd and right flank), Other (Unable to keep down any medications due to the vomiting and so has not had her seizure or pain medicines in 2 1/2 days.). No: Fever Contributing factors: No: Sick contact, Bad food, Travel, Recent antibiotics Review of Systems Constitutional: denies: Fever, Chills Nose: denies: Rhinorrhea / runny nose, Congestion Throat: denies: Sore throat Respiratory: denies: Cough : denies: Dysuria Neurologic: reports: Generalized weakness. 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: Ovarian cancer : Incontinence, Renal insuffiency, Nocturia, Frequency, Kidney stones HEENT: Chronic sinusitis Psych: Depression Musculoskeletal: Osteoarthritis, Osteoporosis, Fatigue, Chronic back pain, Other Derm: Psoriasis - Past Surgical History Past Surgical History: Yes General: Appendectomy Ortho: Hip replacement, Spine surgery /WIRELESS TECHNICIAN: 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, Oophrectomy - Present Medications Home Medications: Ambulatory Orders Medication Instructions Recorded Confirmed Omeprazole [PriLOSEC] 20 mg PO BID 02/09/18 05/29/19 Pregabalin [Lyrica] 100 mg PO TID 02/09/18 05/29/19 levETIRAcetam [Keppra] 1,000 mg PO BID 02/09/18 05/29/19 Phenytoin Sodium Extended 500 mg PO QPM 03/16/18 05/29/19 Cetirizine [ZyrTEC] 10 mg PO DAILY 09/06/18 05/29/19 Melatonin 10 mg PO QPM PRN 09/06/18 05/29/19 Magnesium Oxide [Magnesium] 500 mg PO DAILY 09/14/18 05/29/19 diphenhydrAMINE [Benadryl] 25 mg PO PRN PRN 09/14/18 05/29/19 methocarbamoL [Methocarbamol] 500 mg PO QID 09/20/18 05/29/19 Oxycodone HCl/Acetaminophen 1 tab PO Q6HR PRN 04/09/19 05/29/19 [Oxycodone-Acetaminophen 10-325] Potassium Citrate [Potassium 40 meq PO TIDWM 04/09/19 05/29/19 Citrate ER] Spironolactone 50 mg PO BID 04/09/19 05/29/19 Ondansetron [Ondansetron Odt] 8 mg PO Q6HR PRN #20 tab.rapdis 04/11/19 05/29/19 Phenazopyridine [Pyridium] 200 mg PO TID PRN #30 tablet 04/11/19 05/29/19 Prochlorperazine Maleate 10 mg PO QID PRN #20 tablet 04/11/19 05/29/19 [Compazine] carvediloL [Carvedilol] 12.5 mg PO Q12H #60 tablet 04/11/19 05/29/19 Amlodipine Besylate 10 mg DAILY 10/31/19 10/31/19 Ondansetron Odt [Zofran] 4 mg TL Q6H PRN #20 tablet 10/31/19 Promethazine Supp [Phenergan Supp] 25 mg IN Q6H PRN #10 supp 10/31/19 - Allergies Allergies/Adverse Reactions: Allergies Allergy/AdvReac Type Severity Reaction Status Date / Time Penicillins Allergy Severe Respiratory Verified 10/04/19 20:07 bacitracin Allergy Mild Hives Verified 10/04/19 20:07 [From Neosporin ([id number])] bacitracin zinc * Allergy Mild Itching Verified 10/04/19 20:07 [From Neosporin ([id number])] neomycin sulfate * Allergy Mild Itching Verified 10/04/19 20:07 [From Neosporin ([id number])] lamotrigine Allergy Itching Verified 10/04/19 20:07 venom-honey bee Allergy Unknown Verified 10/04/19 20:07 [bee venom (honey bee)] ciprofloxacin AdvReac Emesis Verified 10/04/19 20:07 - Social History Does the pt smoke?: No Smoking Status: Never smoker Does the pt drink ETOH?: No Does the pt have substance abuse?: No - Immunizations Immunizations are current?: Yes - POLST Patient has POLST: Yes POLST Status: DNR PD ED PE NORMAL - Vitals Vital signs reviewed: Yes - General General: Alert and oriented X 3, Well developed/nourished - HEENT HEENT: Ears normal, Pharynx benign. No: Moist mucous membranes - Neck Neck: Supple, no meningeal sign, No adenopathy - Cardiac Cardiac: RRR (trachycardic but regular), No murmur - Respiratory Respiratory: Clear bilaterally - Abdomen Abdomen: Soft, Non tender - Back Back: No CVA TTP - Derm Derm: Normal color, Warm and dry - Extremities Extremities: No tenderness to palpate, Normal ROM s pain, No edema, No calf tenderness / cord - Neuro Neuro: Alert and oriented X 3, personal care attendant 2-12 intact, No motor deficit, No sensory deficit, Normal speech Results - Vitals Vitals: Vital Signs - 24 hr 10/31/19 10/31/19 10/31/19 09:51 10:30 11:49 Temperature 36.7 C Heart Rate 111 H 85 88 Respiratory 18 18 18 Rate Blood Pressure 179/118 H 173/95 H 170/102 H O2 Saturation 95 98 98 10/31/19 10/31/19 10/31/19 12:08 12:40 13:51 Temperature Heart Rate 87 89 87 Respiratory 16 16 18 Rate Blood Pressure 160/98 H 153/95 H 155/84 H O2 Saturation 98 98 98 Oxygen O2 Source Room air - Labs Labs: Laboratory Tests 10/31/19 10/31/19 10/31/19 10:10 10:10 10:36 WBC 8.3 RBC 4.87 Hgb 14.0 Hct 41.2 MCV 84.6 MCH 28.7 MCHC 34.0 RDW 14.8 Plt Count 412 MPV 9.7 Neut # (Auto) 5.8 Lymph # (Auto) 1.9 [place] # (Auto) 0.4 Eos # (Auto) 0.1 Baso # (Auto) 0.0 Absolute Nucleated RBC 0.00 Nucleated RBC % 0.0 Sodium 130 L Potassium 2.9 L Chloride 100 L Carbon Dioxide 17 L Anion Gap 13.0 BUN 12 Creatinine 0.7 Estimated GFR (MDRD) 87 L Glucose 172 H Calcium 9.2 Phosphorus 2.5 Magnesium 2.5 Total Bilirubin 1.1 H AST 21 ALT 17 Alkaline Phosphatase 266 H Total Protein 8.3 H Albumin 5.0 Globulin 3.3 Albumin/Globulin Ratio 1.5 Lipase 24 Phenytoin 4.0 - Rads (name of study) KUB CT Radiology: Prelim report reviewed (no stones, no hydroureter.), See rad report PD MEDICAL DECISION MAKING - ED course Complexity details: re-evaluated patient (improved with IV fluids and meds. Sounds like muscular abd pain, since normal CT. ), considered differential (Had vomiting and diarrhea, then persistent vomiting. Seems likely viral GE and then some element of persistent nausea/vomiting from not having meds for a day. Give IV Keppra, as she is concerned about missing antiepileptic meds for couple days. Check Dilantin level before giving more, in case is still high and would not want to get too high level. ), d/w patient Departure - Departure Disposition: 01 Home, Self Care Clinical Impression: Dehydration Nausea and vomiting Qualifiers: Vomiting type: unspecified Vomiting Intractability: intractable Qualified Code(s): R11.2 - Nausea with vomiting, unspecified Condition: Stable Record reviewed to determine appropriate education?: Yes Instructions: ED Nausea Vomiting Prescriptions: Ondansetron Odt [Zofran] 4 mg TL Q6H PRN #20 tablet PRN Reason: Nausea / Vomiting Promethazine Supp [Phenergan Supp] 25 mg IN Q6H PRN #10 supp PRN Reason: Nausea / Vomiting Comments: Small frequent fluids and stay well-hydrated. Continue usual medications. I presume this was a viral stomach flu or food related which then triggered the persistent vomiting. As such I would anticipate you doing better now that the nausea has stopped and you are better hydrated. Use Zofran as needed for nausea. You can add or instead use promethazine suppositories if needed. Your Dilantin level was a little bit low at 4 so we gave an extra dose orally here. I would still take your normal nighttime dose along with your usual medicines tonight. Discharge Date/Time: 10/31/19 14:14
[2019-10-31 10:35] LABS: BASOPHILS % (AUTO) 0.4 %; EOSINOPHILS # (AUTO) 0.1 10^3/uL (0.0-0.7); EOSINOPHILS % (AUTO) 1.2 %; LYMPHOCYTES # (AUTO) 1.9 10^3/uL (1.5-3.5); LYMPHOCYTES % (AUTO) 22.5 %; MEAN CORPUSCULAR HEMOGLOBIN 28.7 pg (27.0-31.0); MEAN CORPUSCULAR VOLUME 84.6 fL (81.0-99.0); MEAN PLATELET VOLUME 9.7 fL (7.9-10.8); MONOCYTES # (AUTO) 0.4 10^3/uL (0.0-1.0); NEUTROPHILS # (AUTO) 5.8 10^3/uL (1.5-6.6); NEUTROPHILS % (AUTO) 70.4 %; PLT - PLATELET COUNT 412 10^3/uL (130-450); RED BLOOD COUNT 4.87 10^6/uL (4.20-5.40); RED CELL DISTRIBUTION WIDTH 14.8 % (12.0-15.0); WHITE BLOOD COUNT 8.3 x10^3/uL (4.8-10.8)
[2019-10-31] MEDS ORDERED: levETIRAcetam INJ 500 MG in SODIUM CHLORIDE 0.9% 100ML 100 ML IV STA (10:36)
[2019-10-31] MEDS ORDERED: ONDANSETRON 4 MG/2 ML VIAL IVP STA ×2 (10:36→12:42)
[2019-10-31] MEDS ORDERED: SODIUM CHLORIDE 0.9% 1,000 ML IV ONE (10:36)
[2019-10-31] MEDS ORDERED: HYDROmorphone 2 MG/ML VIAL IVP STA (10:36)
[2019-10-31 10:49] LABS: ALBUMIN/GLOBULIN RATIO 1.5 (1.0-2.2); BILIRUBIN,TOTAL 1.1 mg/dL (0.2-1.0); CALCIUM 9.2 mg/dL (8.5-10.3); CREATININE 0.7 mg/dL (0.4-1.0); TOTAL PROTEIN 8.3 g/dL (6.7-8.2)
[2019-10-31] MEDS ORDERED: POTASSIUM CHLOR 10 MEQ/100 ML 10 MEQ/100 ML BAG IV ONE (11:34)
--- NOTE | 2019-10-31 12:07 | CT Report ---
Reason: right flank and abd pain for 2 days Procedure Date: 10/31/2019 Accession Number: [id number] / [id number] Procedure: CT - Abdomen/Pelvis WO CPT Code: Final Report FULL RESULT: EXAM: CT ABDOMEN AND PELVIS (CT KUB) EXAM DATE: 10/31/2019 11:23 AM. CLINICAL HISTORY: Right flank and abdominal pain for 2 days. COMPARISONS: ABDOMEN/PELVIS W/O 11/05/2018 6:39 PM. TECHNIQUE: Routine axial helical CT imaging was performed through the abdomen and pelvis without IV contrast. Reconstructions: Coronal and sagittal. In accordance with CT protocol optimization, one or more of the following dose reduction techniques were utilized for this exam: automated exposure control, adjustment of mA and/or KV based on patient size, or use of iterative reconstructive technique. FINDINGS: Lung Bases: 0.8 cm nodularity in the lingula, image 12. Right Kidney/Ureter: No stones, hydronephrosis, or hydroureter. No perinephric fat stranding. Left Kidney/Ureter: No stones, hydronephrosis, or hydroureter. No perinephric fat stranding. Other Solid Organs: Noncontrast images of the solid organs are grossly unremarkable. Gallbladder/Bile Ducts: Status post cholecystectomy. Peritoneal Cavity: Colon appears collapsed. Appendix is not seen with no suspicion of inflammatory changes in the sacral region. There is no free fluid or free air. There is no bowel obstruction. By size criteria, there is no lymphadenopathy. Pelvic Organs: Evaluation of pelvic structures is limited by marked streak artifact from the left total hip arthroplasty. Postoperative changes in the visualized pelvis appear unchanged from 2019. Left UVJ specifically obscured by streak artifact. Vasculature: Unremarkable. Other: None. IMPRESSION: No hydronephrosis or renal calculi are detected. The left UVJ is not visualized due to streak artifact. Recommend follow-up of the described nodule(s) according to the following guidelines: Fleischner Society Recommendations 2017 MacMahon et al. Radiology 2017 Solid Nodules-Low Risk Patients: 6-8 mm (single) -CT at 6-12 months, then consider CT at 18-24 months Solid Nodules-High Risk Patients: 6-8 mm (single) -CT at 6-12 months, then CT at 18-24 months RADIA
[2019-10-31] MEDS ORDERED: HYDROmorphone 1 MG/ML SYRINGE IVP STA (12:42)
[2019-10-31 13:37] LABS: MAGNESIUM 2.5 mg/dL (1.7-2.8); PHOSPHORUS 2.5 mg/dL (2.5-4.6)
[2019-10-31] MEDS ORDERED: PHENYTOIN ER 100 MG CAPSULE PO STA (13:39)
[2019-10-31 13:55] VITALS: BP 155/84
== END 2019-10-31 14:14 | disposition home or self-care (01) ==
LOC: ED 09:47
DX: E86.0 Dehydration (principal); R11.2 Nausea with vomiting, unspecified; R19.7 Diarrhea, unspecified; R10.9 Unspecified abdominal pain; G40.909 Epilepsy, unspecified, not intractable, without status epilepticus; M32.9 Systemic lupus erythematosus, unspecified; I10 Essential (primary) hypertension
CPT/HCPCS: 36415; 74176; 80053; 80185; 83690; 83735; 84100; 85025; 96365; 96367; 96375; 96376; 99283; 99284; A9270; J1170

== ENCOUNTER 2020-02-19 22:30 | Outpatient (CLI) | payer MEDICARE, MEDICAID | END 2020-02-19 22:31 | disposition critical access hospital (66) | LOC: EMS 22:30 | PROVIDERS: ATTEND Surgery | DX: R07.9 Chest pain, unspecified (principal) | CPT/HCPCS: A0425; A0427 ==

== ENCOUNTER 2020-02-19 22:43 | Emergency (ER) | payer MEDICARE, MEDICAID ==
[2020-02-19 23:05] LABS: BASOPHILS # (AUTO) 0.1 10^3/uL (0.0-0.1); BASOPHILS % (AUTO) 0.9 %; EOSINOPHILS # (AUTO) 0.4 10^3/uL (0.0-0.7); EOSINOPHILS % (AUTO) 6.5 %; HGB - HEMOGLOBIN 12.7 g/dL (12.0-16.0); LYMPHOCYTES # (AUTO) 2.8 10^3/uL (1.5-3.5); LYMPHOCYTES % (AUTO) 41.9 %; MEAN CORPUSCULAR HEMOGLOBIN 29.2 pg (27.0-31.0); MEAN CORPUSCULAR HGB CONC 32.4 g/dL (32.0-36.0); MEAN CORPUSCULAR VOLUME 90.1 fL (81.0-99.0); MEAN PLATELET VOLUME 9.3 fL (7.9-10.8); MONOCYTES # (AUTO) 0.7 10^3/uL (0.0-1.0); MONOCYTES % (AUTO) 10.3 %; NEUTROPHILS # (AUTO) 2.7 10^3/uL (1.5-6.6); PLT - PLATELET COUNT 344 10^3/uL (130-450); RED BLOOD COUNT 4.35 10^6/uL (4.20-5.40); RED CELL DISTRIBUTION WIDTH 13.8 % (12.0-15.0); WHITE BLOOD COUNT 6.8 x10^3/uL (4.8-10.8)
--- NOTE | 2020-02-19 23:05 | ED Physician Documentation ---
PD HPI CHEST PAIN - Stated complaint Stated Complaint: CP, AMS - Chief complaint Chief Complaint: Neuro - History obtained from History obtained from: Patient, Family (daughter) - History of Present Illness Timing - onset: Enter time (some time between 7pm and 9 pm (see narrative below)) Timing - onset during: Rest Pain level max: 6 Pain level now: 3 Quality: Pain Location: Other (entire anterior chest) Radiation: Other (no radiation) Improved by: Nothing Worsened by: Other (no exacerbating factors) Associated symptoms: No: Shortness of air, Diaphoresis, Nausea, Vomiting, Feeling faint / dizzy, General Weakness, Palpitations, Cough Recently seen: Not recently seen - Additional information Additional information: patient's daughter brought patient her dinner at approximately 7 PM (patient was lying in bed). At that time, patient was AAOx3. Daughter rechecked on patient at 9PM, found patient was unconscious, "foam in her mouth", had not eaten any of her dinner. She rapidly became more awake and alert although confused, began to c/o chest pain across anterior chest. Daughter called 911. Patient continued to gradually become more awake, alert, and less confused and is no longer confused on ED arrival. Has seizure history but denies recent missed doses, no recent change in doses Review of Systems Constitutional: reports: Reviewed and negative Eyes: reports: Reviewed and negative Cardiac: reports: Chest pain / pressure. denies: Palpitations, Pedal edema, Calf pain Respiratory: reports: Reviewed and negative GI: reports: Reviewed and negative : denies: Dysuria, Frequency Musculoskeletal: reports: Reviewed and negative Neurologic: reports: Confused (resolved), LOC. 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: Ovarian cancer : Incontinence, Renal insuffiency, Nocturia, Frequency, Kidney stones HEENT: Chronic sinusitis Psych: Depression Musculoskeletal: Osteoarthritis, Osteoporosis, Fatigue, Chronic back pain, Other Derm: Psoriasis - Past Surgical History Past Surgical History: Yes General: Appendectomy Ortho: Hip replacement, Spine surgery /AUTHOR AGENT: 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, Oophrectomy - Present Medications Home Medications: Ambulatory Orders Medication Instructions Recorded Confirmed Omeprazole [PriLOSEC] 20 mg PO BID 02/09/18 02/20/20 Pregabalin [Lyrica] 100 mg PO TID 02/09/18 02/20/20 levETIRAcetam [Keppra] 1,000 mg PO BID 02/09/18 02/20/20 Phenytoin Sodium Extended 500 mg PO QPM 03/16/18 02/20/20 Cetirizine [ZyrTEC] 10 mg PO DAILY 09/06/18 02/20/20 Melatonin 10 mg PO QPM PRN 09/06/18 02/20/20 Magnesium Oxide [Magnesium] 500 mg PO DAILY 09/14/18 02/20/20 diphenhydrAMINE [Benadryl] 25 mg PO PRN PRN 09/14/18 02/20/20 methocarbamoL [Methocarbamol] 500 mg PO QID 09/20/18 02/20/20 Oxycodone HCl/Acetaminophen 1 tab PO Q6HR PRN 04/09/19 02/20/20 [Oxycodone-Acetaminophen 10-325] Potassium Citrate [Potassium 40 meq PO TIDWM 04/09/19 02/20/20 Citrate ER] Spironolactone 50 mg PO BID 04/09/19 02/20/20 Ondansetron [Ondansetron Odt] 8 mg PO Q6HR PRN #20 tab.rapdis 04/11/19 02/20/20 Prochlorperazine Maleate 10 mg PO QID PRN #20 tablet 04/11/19 02/20/20 [Compazine] carvediloL [Carvedilol] 12.5 mg PO Q12H #60 tablet 04/11/19 02/20/20 Amlodipine Besylate 10 mg DAILY 10/31/19 02/20/20 Butalb/Acetaminophen/Caffeine 1 cap PO DAILY PRN 02/20/20 02/20/20 [Ekupme-[id number]-Mvau 50-300-40] - Allergies Allergies/Adverse Reactions: Allergies Allergy/AdvReac Type Severity Reaction Status Date / Time Penicillins Allergy Severe Respiratory Verified 02/19/20 23:58 bacitracin Allergy Mild Hives Verified 02/19/20 23:58 [From Neosporin ([id number])] bacitracin zinc * Allergy Mild Itching Verified 02/19/20 23:58 [From Neosporin ([id number])] neomycin sulfate * Allergy Mild Itching Verified 02/19/20 23:58 [From Neosporin ([id number])] lamotrigine Allergy Itching Verified 02/19/20 23:58 venom-honey bee Allergy Unknown Verified 02/19/20 23:58 [bee venom (honey bee)] ciprofloxacin AdvReac Emesis Verified 02/19/20 23:58 - Social History Does the pt smoke?: No Smoking Status: Never smoker Does the pt drink ETOH?: No Does the pt have substance abuse?: No - Immunizations Immunizations are current?: Yes - POLST Patient has POLST: Yes POLST Status: DNR PD ED PE NORMAL - Vitals Vital signs reviewed: Yes - General General: Alert and oriented X 3, No acute distress, Well developed/nourished - HEENT HEENT: Moist mucous membranes - Neck Neck: Supple, no meningeal sign - Cardiac Cardiac: RRR, No murmur, No gallop, No rub - Respiratory Respiratory: No respiratory distress, Clear bilaterally - Abdomen Abdomen: Soft, Non tender - Derm Derm: Normal color, Warm and dry - Extremities Extremities: No edema - Neuro Neuro: Alert and oriented X 3, italian lecturer 2-12 intact, No motor deficit, No sensory deficit, Normal speech Eye Opening: Spontaneous Motor: Obeys Commands Verbal: Oriented GCS Score: 15 Results - Vitals Vitals: Vital Signs - 24 hr 02/19/20 02/19/20 02/19/20 22:44 23:05 23:42 Temperature 36.3 C L Heart Rate 75 69 74 Respiratory 18 15 15 Rate Blood Pressure 154/89 H 164/92 H 160/72 H O2 Saturation 95 99 99 02/19/20 02/20/20 23:53 01:38 Temperature 36.8 C Heart Rate 77 75 Respiratory 16 16 Rate Blood Pressure 160/72 H 144/80 H O2 Saturation 99 97 Oxygen O2 Source Room air - EKG (time done) No standard instances Rate: Rate (enter#) (70) Rhythm: NSR [place]: Normal Intervals: Normal ID QRS: Normal Ischemia: Normal ST segments - Labs Labs: Laboratory Tests 0602/19/20 02/19/20 23:00 23:00 23:00 WBC 6.8 RBC 4.35 Hgb 12.7 Hct 39.2 MCV 90.1 MCH 29.2 MCHC 32.4 RDW 13.8 Plt Count 344 MPV 9.3 Neut # (Auto) 2.7 Lymph # (Auto) 2.8 [place] # (Auto) 0.7 Eos # (Auto) 0.4 Baso # (Auto) 0.1 Absolute Nucleated RBC 0.00 Nucleated RBC % 0.0 Sodium 139 Potassium 3.5 Chloride 106 Carbon Dioxide 23 Anion Gap 10.0 BUN 14 Creatinine 0.7 Estimated GFR (MDRD) 87 L Glucose 115 H Calcium 8.9 Total Bilirubin 0.6 AST 14 ALT 15 Alkaline Phosphatase 143 H Troponin I High Sens < 2.3 L Total Protein 6.7 Albumin 4.0 Globulin 2.7 Albumin/Globulin Ratio 1.5 Lipase 25 Urine Color Urine Clarity Urine pH Ur Specific [place] Urine Protein Urine Glucose (UA) Urine Ketones Urine Occult Blood Urine Nitrite Urine Bilirubin Urine Urobilinogen Ur Leukocyte Esterase Ur Microscopic Review Urine Culture Comments 02/19/20 23:43 WBC RBC Hgb Hct MCV MCH MCHC RDW Plt Count MPV Neut # (Auto) Lymph # (Auto) [place] # (Auto) Eos # (Auto) Baso # (Auto) Absolute Nucleated RBC Nucleated RBC % Sodium Potassium Chloride Carbon Dioxide Anion Gap BUN Creatinine Estimated GFR (MDRD) Glucose Calcium Total Bilirubin AST ALT Alkaline Phosphatase Troponin I High Sens Total Protein Albumin Globulin Albumin/Globulin Ratio Lipase Urine Color YELLOW Urine Clarity CLEAR Urine pH 6.0 Ur Specific [place] 1.020 Urine Protein NEGATIVE Urine Glucose (UA) NEGATIVE Urine Ketones NEGATIVE Urine Occult Blood TRACE-INTA Urine Nitrite NEGATIVE Urine Bilirubin NEGATIVE Urine Urobilinogen 0.2 (NORMAL) Ur Leukocyte Esterase NEGATIVE Ur Microscopic Review NOT INDICATED Urine Culture Comments NOT INDICATED PD MEDICAL DECISION MAKING - ED course Complexity details: reviewed results, re-evaluated patient, considered differential, d/w patient, d/w family ED course: no witnessed seizure, but HPI is s/o post-ictal phase and thus suspect unwitnessed seizure. EKG is reassuring and hsTni is negative. Departure - Departure Disposition: 01 Home, Self Care Clinical Impression: Chest pain Qualifiers: Chest pain type: unspecified Qualified Code(s): R07.9 - Chest pain, unspecified Condition: Good Instructions: ED Chest Pain Atypical Unkn Cause Discharge Date/Time: 02/20/20 01:45
[2020-02-19 23:21] LABS: ALBUMIN/GLOBULIN RATIO 1.5 (1.0-2.2); BILIRUBIN,TOTAL 0.6 mg/dL (0.2-1.0); CREATININE 0.7 mg/dL (0.4-1.0); TOTAL PROTEIN 6.7 g/dL (6.7-8.2)
[2020-02-19 23:28] LABS: CALCIUM 8.9 mg/dL (8.5-10.3)
[2020-02-19 23:52] LABS: BILIRUBIN,URINE NEGATIVE (NEGATIVE); GLUCOSE, URINE (UA) NEGATIVE (NEGATIVE); KETONES,URINE (UA) NEGATIVE (NEGATIVE); LEUKOCYTE ESTERASE, URINE NEGATIVE (NEGATIVE); NITRITE,URINE NEGATIVE (NEGATIVE); OCCULT BLOOD,URINE TRACE-INTA (NEGATIVE); PROTEIN,URINE NEGATIVE (NEGATIVE); UROBILINOGEN,URINE 0.2 (NORMAL) E.U./dL (NORMAL)
[2020-02-19 23:53] LABS: CLARITY,URINE CLEAR (CLEAR)
[2020-02-20 01:51] VITALS: BP 144/80
--- NOTE | 2020-02-20 07:40 | XRAY Report ---
PROCEDURE: Chest 2 View X-Ray INDICATIONS: chest pain TECHNIQUE: 2 view(s) of the chest. COMPARISON: 10/04/2019, and 02/09/2018 FINDINGS: Surgical changes and devices: None. Lungs and pleura: No pleural effusions or pneumothorax. Lungs are clear. Mediastinum: Mediastinal contours are normal. Heart size is normal. Bones and chest wall: No suspicious bony abnormalities. Soft tissues appear unremarkable. IMPRESSION: No acute cardiopulmonary disease process. Reviewed by: Tarsha Gonzales MD, PhD on 02/20/2020 7:39 AM PDT Approved by: Tarsha Gonzales MD, PhD on 02/20/2020 7:39 AM PDT Station ID: [id number]
== END 2020-02-20 01:45 | disposition home or self-care (01) ==
LOC: EDUNIT# → ED 22:43
DX: R07.9 Chest pain, unspecified (principal); G40.909 Epilepsy, unspecified, not intractable, without status epilepticus; I10 Essential (primary) hypertension; M32.9 Systemic lupus erythematosus, unspecified; Z66 Do not resuscitate
CPT/HCPCS: 36415; 71046; 80053; 81001; 81003; 83690; 84484; 85025; 87086; 93005; 99284

== ENCOUNTER 2020-05-15 23:03 | Outpatient (CLI) | payer MEDICARE, MEDICAID | END 2020-05-15 23:59 | disposition critical access hospital (66) | LOC: EMS 23:03 | PROVIDERS: ATTEND Surgery | DX: R51 Headache (principal); M54.2 Cervicalgia; M54.5 Low back pain; R10.9 Unspecified abdominal pain; M25.551 Pain in right hip | CPT/HCPCS: A0425; A0429 ==

== ENCOUNTER 2020-05-15 23:15 | Inpatient (IN) | payer MEDICARE, MEDICAID ==
--- NOTE | 2020-05-15 23:17 | ED Physician Documentation ---
PD HPI Fall - Stated complaint Stated Complaint: GLF - History obtained from History obtained from: Patient - History of Present Illness Mechanism of injury: Lost balance Fall distance: Sitting position Where injury occurred: Home Timing - onset: Today (tonight) Injury(ies) location: Head Pain level now: 7 Quality of pain: Pain Associated symptoms: No: LOC, AMS Symptoms improve with: Nothing Worsens with: Other (no exacerbating factors) Contributing factors: No: Anticoagulated, Intoxicated - Additional information Additional information: patient developed burning dysuria 4-5 days ago with nausea and diarrhea. Tonight she was sitting on the edge of her bed and lost her balance, causing her to fall forward; she hit her head on the floor and has had frontal STACY since then (gradually worsening). Also c/o right hip pain that also started when she fell. Review of Systems Constitutional: denies: Fever, Chills, Sweats Eyes: reports: Reviewed and negative Ears: reports: Reviewed and negative Nose: reports: Reviewed and negative Throat: reports: Reviewed and negative Cardiac: reports: Reviewed and negative Respiratory: reports: Reviewed and negative GI: reports: Nausea, Vomiting. denies: Abdominal Pain, Constipation, Diarrhea : reports: Dysuria. denies: Hematuria Skin: reports: Reviewed and negative Musculoskeletal: reports: Neck pain, Joint pain (right hip). denies: Back pain Neurologic: reports: Headache, Head injury. 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 : Incontinence, Renal insuffiency, Nocturia, Frequency, Kidney stones HEENT: Chronic sinusitis Psych: Depression Musculoskeletal: Osteoarthritis, Osteoporosis, Fatigue, Chronic back pain, Other Derm: Psoriasis - Past Surgical History Past Surgical History: Yes General: Appendectomy Ortho: Hip replacement, Spine surgery /CONSTRUCTION PIT WORKER: 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, Oophrectomy - Present Medications Home Medications: Ambulatory Orders Medication Instructions Recorded Confirmed Omeprazole [PriLOSEC] 20 mg PO BID 02/09/18 02/20/20 Pregabalin [Lyrica] 100 mg PO TID 02/09/18 02/20/20 levETIRAcetam [Keppra] 1,000 mg PO BID 02/09/18 02/20/20 Phenytoin Sodium Extended 500 mg PO QPM 03/16/18 02/20/20 Cetirizine [ZyrTEC] 10 mg PO DAILY 09/06/18 02/20/20 Melatonin 10 mg PO QPM PRN 09/06/18 02/20/20 Magnesium Oxide [Magnesium] 500 mg PO DAILY 09/14/18 02/20/20 diphenhydrAMINE [Benadryl] 25 mg PO PRN PRN 09/14/18 02/20/20 methocarbamoL [Methocarbamol] 500 mg PO QID 09/20/18 02/20/20 Oxycodone HCl/Acetaminophen 1 tab PO Q6HR PRN 04/09/19 02/20/20 [Oxycodone-Acetaminophen 10-325] Potassium Citrate [Potassium 40 meq PO TIDWM 04/09/19 02/20/20 Citrate ER] Spironolactone 50 mg PO BID 04/09/19 02/20/20 Ondansetron [Ondansetron Odt] 8 mg PO Q6HR PRN #20 tab.rapdis 04/11/19 02/20/20 carvediloL [Carvedilol] 12.5 mg PO Q12H #60 tablet 04/11/19 02/20/20 Amlodipine Besylate 10 mg DAILY 10/31/19 02/20/20 Butalb/Acetaminophen/Caffeine 1 cap PO DAILY PRN 02/20/20 02/20/20 [Fqksmy-Vvsytokm-Zehw 50-300-40] Prochlorperazine Maleate 10 mg PO QID PRN 05/16/20 05/16/20 [Compazine] Prochlorperazine Maleate 10 mg PO TID 05/16/20 [Compazine] - Allergies Allergies/Adverse Reactions: Allergies Allergy/AdvReac Type Severity Reaction Status Date / Time Penicillins Allergy Severe Respiratory Verified 02/19/20 23:58 bacitracin Allergy Mild Hives Verified 02/19/20 23:58 [From Neosporin ([id number])] bacitracin zinc * Allergy Mild Itching Verified 02/19/20 23:58 [From Neosporin ([id number])] neomycin sulfate * Allergy Mild Itching Verified 02/19/20 23:58 [From Neosporin ([id number])] lamotrigine Allergy Itching Verified 02/19/20 23:58 venom-honey bee Allergy Unknown Verified 02/19/20 23:58 [bee venom (honey bee)] ciprofloxacin AdvReac Emesis Verified 02/19/20 23:58 - Social History Does the pt smoke?: No Smoking Status: Never smoker Does the pt drink ETOH?: No Does the pt have substance abuse?: No - Immunizations Immunizations are current?: Yes - POLST Patient has POLST: Yes POLST Status: DNR PD ED PE NORMAL - Vitals Vital signs reviewed: Yes - General General: Alert and oriented X 3, No acute distress, Well developed/nourished - HEENT HEENT: Atraumatic, PERRL, EOMI, Moist mucous membranes - Neck Neck: No bony TTP - Cardiac Cardiac: RRR, No murmur - Respiratory Respiratory: No respiratory distress, Clear bilaterally - Abdomen Abdomen: Normal bowel sounds, Soft, Non tender, Non distended - Back Back: No spinal TTP - Derm Derm: Normal color, Warm and dry - Extremities Extremities: No deformity, Other (mild TTP right hip with limited flexion due to pain) - Neuro Neuro: Alert and oriented X 3, 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 molder 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, No motor deficit, No sensory deficit, Normal speech Eye Opening: Spontaneous Motor: Obeys Commands Verbal: Oriented GCS Score: 15 Results - Vitals Vitals: Vital Signs - 24 hr 05/15/20 05/16/20 05/16/20 23:26 02:55 03:25 Temperature 36.7 C Heart Rate 79 81 115 H Respiratory 24 18 30 H Rate Blood Pressure 192/117 H 181/100 H 195/99 H O2 Saturation 99 97 98 Oxygen O2 Source Room air - Labs Labs: Laboratory Tests 05/16/20 05/16/20 05/16/20 00:40 00:40 01:30 WBC 11.3 H RBC 4.78 Hgb 14.1 Hct 41.7 MCV 87.2 MCH 29.5 MCHC 33.8 RDW 13.7 Plt Count 479 H MPV 9.7 Neut # (Auto) 7.0 H Lymph # (Auto) 3.0 [place] # (Auto) 1.0 Eos # (Auto) 0.1 Baso # (Auto) 0.1 Absolute Nucleated RBC 0.00 Nucleated RBC % 0.0 Sodium 137 Potassium 2.2 L* Chloride 102 Carbon Dioxide 21 Anion Gap 14.0 H BUN 7 Creatinine 0.6 Estimated GFR (MDRD) 104 Glucose 117 H Calcium 9.6 Total Bilirubin 0.5 AST 14 ALT 14 Alkaline Phosphatase 139 H Total Protein 7.9 Albumin 4.7 Globulin 3.2 Albumin/Globulin Ratio 1.5 Lipase 36 Urine Color YELLOW Urine Clarity HAZY Urine pH 6.5 Ur Specific [place] 1.020 Urine Protein 30 H Urine Glucose (UA) NEGATIVE Urine Ketones NEGATIVE Urine Occult Blood LARGE H Urine Nitrite POSITIVE H Urine Bilirubin NEGATIVE Urine Urobilinogen 0.2 (NORMAL) Ur Leukocyte Esterase MODERATE H Urine RBC 6-10 H Urine WBC 11-25 H Ur Squamous Epith Cells MOD Squamous H Urine Bacteria Moderate H Ur Microscopic Review INDICATED Urine Culture Comments NOT INDICATED Phenytoin < 2.5 - Rads (name of study) right hip/pelvis xrays Radiology: Prelim report reviewed, See rad report CT cervical spine Radiology: Prelim report reviewed, See rad report CT head Radiology: Prelim report reviewed, See rad report chest xray Radiology: Prelim report reviewed, See rad report Procedures - Central Line Central Line Preparation: Consent Obtained, Time out completed, Ultrasound used, Sterile prep and drape Central line location: Right IJ Central line type: Triple lumen Central line aftercare: Chlorhexidine disc placed, Secured, Placement confirmed, No pneumothorax, No complications, Pt tolerated well PD MEDICAL DECISION MAKING - ED course Complexity details: reviewed old records, reviewed results, re-evaluated patient, considered differential, d/w patient ED course: UA s/o UTI. significant hypokalemia (2.2) which will require IV repletion. ED RNs unable to obtain IV access after multiple attempts and thus I placed a triple lumen CVC in right IJ. D/W Dr. Stevenson who accepts to hospitalist service. Given levoquin for UTI (patient says she has had this before for previous UTIs with good result) Departure - Departure Disposition: 66 [facility] DC/Xfer Clinical Impression: Hypokalemia Urinary tract infection Qualifiers: Urinary tract infection type: acute cystitis Hematuria presence: with hematuria Qualified Code(s): N30.01 - Acute cystitis with hematuria Condition: Stable Discharge Date/Time: 05/16/20 05:16
[2020-05-15] MEDS ORDERED: ONDANSETRON 4 MG/2 ML VIAL IVP STA (23:48)
[2020-05-16] MEDS ORDERED: ONDANSETRON ODT 4 MG TABLET TL STA (00:32)
[2020-05-16] MEDS ORDERED: oxyCODONE 5 MG TABLET PO STA (00:33)
[2020-05-16] MEDS: SODIUM CHLORIDE 0.9% 500 ML IV STA ×2 (00:37→03:37)
[2020-05-16 00:55] LABS: BASOPHILS # (AUTO) 0.1 10^3/uL (0.0-0.1); BASOPHILS % (AUTO) 0.5 %; EOSINOPHILS # (AUTO) 0.1 10^3/uL (0.0-0.7); HGB - HEMOGLOBIN 14.1 g/dL (12.0-16.0); LYMPHOCYTES % (AUTO) 26.6 %; MEAN CORPUSCULAR HEMOGLOBIN 29.5 pg (27.0-31.0); MEAN CORPUSCULAR HGB CONC 33.8 g/dL (32.0-36.0); MEAN CORPUSCULAR VOLUME 87.2 fL (81.0-99.0); MEAN PLATELET VOLUME 9.7 fL (7.9-10.8); MONOCYTES % (AUTO) 9.1 %; NEUTROPHILS % (AUTO) 62.3 %; PLT - PLATELET COUNT 479 10^3/uL (130-450); RED BLOOD COUNT 4.78 10^6/uL (4.20-5.40); RED CELL DISTRIBUTION WIDTH 13.7 % (12.0-15.0); WHITE BLOOD COUNT 11.3 x10^3/uL (4.8-10.8)
[2020-05-16 01:02] LABS: ALBUMIN 4.7 g/dL (3.2-5.5); ALBUMIN/GLOBULIN RATIO 1.5 (1.0-2.2); ALKALINE PHOSPHATASE 139 IU/L (42-121); ALT ALANINE AMINOTRANSFERASE 14 IU/L (10-60); AST ASPARTATE AMINOTRANSFERASE 14 IU/L (10-42); BILIRUBIN,TOTAL 0.5 mg/dL (0.2-1.0); BUN - BLOOD UREA NITROGEN 7 mg/dL (6-20); CALCIUM 9.6 mg/dL (8.5-10.3); CARBON DIOXIDE - CO2 21 mmol/L (21-32); CHLORIDE 102 mmol/L (101-111); CREATININE 0.6 mg/dL (0.4-1.0); GLUCOSE 117 mg/dL (70-100); LIPASE 36 U/L (22-51); PHENYTOIN (DILANTIN) < 2.5 ug/mL; SODIUM 137 mmol/L (135-145); TOTAL PROTEIN 7.9 g/dL (6.7-8.2)
[2020-05-16 01:46] LABS: BILIRUBIN,URINE NEGATIVE (NEGATIVE); GLUCOSE, URINE (UA) NEGATIVE (NEGATIVE); KETONES,URINE (UA) NEGATIVE (NEGATIVE); LEUKOCYTE ESTERASE, URINE MODERATE (NEGATIVE); NITRITE,URINE POSITIVE (NEGATIVE); OCCULT BLOOD,URINE LARGE (NEGATIVE); PH,URINE 6.5 PH (5.0-7.5); PROTEIN,URINE 30 mg/dL (NEGATIVE); UROBILINOGEN,URINE 0.2 (NORMAL) E.U./dL (NORMAL)
[2020-05-16 01:48] LABS: CLARITY,URINE HAZY (CLEAR)
[2020-05-16 01:53] LABS: BACTERIA,URINE Moderate /HPF (None Seen); SQUAMOUS EPITHELIAL CELL,UR MOD Squamous (<= Few)
[2020-05-16] MEDS ORDERED: MORPHINE 2 MG/ML CARPUJECT IVP STA (02:34)
[2020-05-16] MEDS ORDERED: PROCHLORPERAZINE 10 MG/2 ML VIAL IVP STA (02:34)
[2020-05-16] MEDS ORDERED: POTASSIUM CHLOR 10 MEQ/100 ML 10 MEQ/100 ML BAG IV STA (03:29)
[2020-05-16] MEDS ORDERED: levoFLOXacin 500 MG/100 ML 500 MG/100 ML BAG IV STA (03:55)
--- NOTE | 2020-05-16 04:20 | HISTORY & PHYSICAL EXAMINATION ---
Chief Complaint - Chief Complaint Chief Complaint: n/v/d, hypokalemia History of Present Illness - Admitted From Admitted From:: [facility] ED - History Obtained From Records Reviewed: Yes History obtained from: Patient - History of Present Illness HPI Comment/Other: Patient is a 55-year-old female who presented to the ED after a fall. She has been experiencing nausea, vomiting and diarrhea for the past 4 days. In one such episode of nausea and vomiting today she fell and hit her head. Her daughter was concerned due to her previous Hx of a brain bleed and called EMS so that she could be evaluated in the ED. The patient also reports that she has been having burning on urination, right flank pain and hematuria. She explains that she usually experiences nausea and vomiting when she has a urinary tract infection. As a result of her symptoms she has been unable to keep anything down. Work-up in the ED showed a potassium of 2.2. As a result she was presented for admission for correction. At bedside she appeared to be resting comfortably. She denied chest pain, dyspnea, fever or chills. 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: Ovarian cancer : reports: Incontinence, Chronic bladder infection, Renal insuffiency, Nocturia, Frequency, Kidney stones HEENT: reports: Chronic sinusitis Psych: reports: Depression Musculoskeletal: reports: Osteoarthritis, Osteoporosis, Fatigue, Chronic back pain, Other Derm: reports: Psoriasis MRSA Hx?: Yes - Past Surgical History General: reports: Appendectomy Ortho: reports: Hip replacement, Spine surgery /CAFETERIA HELPER: reports: 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, Oophrectomy - Family & Social History Family History: Mother: Alive and Well, Father: , CAD Family History Comment/Other: Mother is alive and well, age 76, with a history of cervical cancer, CABG x3. Father from heart disease. 1 brother who is alive and well. Living arrangement: At home Living Situation: With family Social History Notes: The patient has one daughter and her first when her daughter was 2 years old. The patient is legally from her 2nd . She is living with her daughter and her daughter's boyfriend in [place]. There are 2 dogs in the home, and the patient has one cat named Andrew. She no longer drives and is wheelchair bound at baseline. 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 She was using a walker and and has been nonweightbearing on the left side since her surgeries. She can perform all of her daily ADLs, but very little house work. She denies ETOH, tobacco, or illicit drug use. She wishes to be a DNR. - Substance History Use: Uses substance without health or social issues: NONE - POLST Patient has POLST: Yes POLST Status: DNR Meds/Allgy - Home Medications Home Medications: Ambulatory Orders Medication Instructions Recorded Confirmed Omeprazole [PriLOSEC] 20 mg PO BID 02/09/18 05/16/20 Pregabalin [Lyrica] 100 mg PO TID 02/09/18 05/16/20 levETIRAcetam [Keppra] 1,000 mg PO BID 02/09/18 05/16/20 Phenytoin Sodium Extended 500 mg PO QPM 03/16/18 05/16/20 Cetirizine [ZyrTEC] 10 mg PO DAILY 09/06/18 05/16/20 Melatonin 10 mg PO QPM PRN 09/06/18 05/16/20 Magnesium Oxide [Magnesium] 500 mg PO DAILY 09/14/18 05/16/20 diphenhydrAMINE [Benadryl] 25 mg PO PRN PRN 09/14/18 05/16/20 methocarbamoL [Methocarbamol] 750 mg PO QID 09/20/18 05/16/20 Potassium Citrate [Potassium 40 meq PO TIDWM 04/09/19 05/16/20 Citrate ER] Spironolactone 75 mg PO BID 04/09/19 05/16/20 carvediloL [Carvedilol] 12.5 mg PO Q12H #60 tablet 04/11/19 05/16/20 Amlodipine Besylate 10 mg PO DAILY 10/31/19 05/16/20 Butalb/Acetaminophen/Caffeine 1 cap PO DAILY PRN 02/20/20 05/16/20 [Vokkci-Xsjtopmz-Wtem 50-300-40] Lasmiditan Succinate [Reyvow] 50 mg PO DAILY PRN 05/16/20 Ondansetron [Ondansetron Odt] 8 mg PO TID 05/16/20 05/16/20 Prochlorperazine Maleate 10 mg PO QID PRN 05/16/20 05/16/20 [Compazine] - Allergies Allergies/Adverse Reactions: Allergies Allergy/AdvReac Type Severity Reaction Status Date / Time Penicillins Allergy Severe Respiratory Verified 02/19/20 23:58 bacitracin Allergy Mild Hives Verified 02/19/20 23:58 [From Neosporin ([id number])] bacitracin zinc * Allergy Mild Itching Verified 02/19/20 23:58 [From Neosporin ([id number])] neomycin sulfate * Allergy Mild Itching Verified 02/19/20 23:58 [From Neosporin ([id number]-vlv-[id number])] lamotrigine Allergy Itching Verified 02/19/20 23:58 venom-honey bee Allergy Unknown Verified 02/19/20 23:58 [bee venom (honey bee)] ciprofloxacin AdvReac Emesis Verified 02/19/20 23:58 Review of Systems - Constitutional Constitutional: denies: Fatigue, Fever, Chills - Eyes Eyes: denies: Pain - Ears, Nose & Throat Ears, Nose & Throat: denies: Ear pain - Cardiovascular Cariovascular: denies: Irregular heart rate, Palpitations, Chest pain, Edema, Lightheadedness, Syncope, Exertional dyspnea - Respiratory Respiratory: denies: Cough, Sputum production, Wheezing, SOB at rest - Gastrointestinal Gastrointestinal: reports: Diarrhea, Nausea, Vomiting. denies: Abdominal pain, Abdominal distention, Black stools, Coffee grounds emesis, Reflux/heartburn - Genitourinary Genitourinary: reports: Dysuria, Flank pain (right) - Musculoskeletal Musculoskeletal: denies: Muscle pain, Back pain - Integumentary Integumentary: denies: Rash, Pruritis, Lesions - Neurological Neurological: denies: General weakness, Focal weakness, Headache, Dizziness - Psychiatric Psychiatric: denies: Depression, Anxiety - Endocrine Endocrine: denies: Polyuria, Polydypsia - Hematologic/Lymphatic Hematologic/Lymphatic: denies: Anemia, Bruising Prior Level of Functionality: Patient is independent of activities of daily living Exam - Vital Signs Vital Signs: Vital Signs x48h Temp Pulse Resp BP Pulse Ox 05/16/20 03:25 115 H 30 H 195/99 H 98 05/16/20 02:55 81 18 181/100 H 97 05/15/20 23:26 36.7 C 79 24 192/117 H 99 - Physical Exam General Appearance: positive: No acute distress, Alert Eyes Bilateral: positive: PERRL, EOMI ENT: positive: No signs of dehydration Neck: positive: No JVD, Trachea midline Respiratory: positive: Chest non-tender, No respiratory distress, Breath sounds nml. negative: Wheezes, Rales, Rhonchi Cardiovascular: positive: Regular rate & rhythm Abdomen: positive: Non-tender, No organomegaly, Nml bowel sounds, No distention. negative: Guarding, Rebound Skin: positive: Color nml, No rash, Warm Extremities: positive: Non-tender, Full ROM, Nml appearance, No pedal edema Neurologic/Psychiatric: positive: Oriented x3, Mood/affect nml Conclusion/Plan - Problem List (1) Hypokalemia Conclusion/Plan: Likely related to patient's nausea vomiting diarrhea. 4 bags of potassium chloride riders have been ordered. We will recheck potassium at 11 AM and replace accordingly. Patient receiving Zofran for nausea (2) Urinary tract infection Conclusion/Plan: Will repeat urine sample and culture because the initial sample was contaminated with moderate squamous cells. However due to patient's symptoms of dysuria, right flank pain and hematuria we will continue treating patient with Levaquin. Qualifiers: Urinary tract infection type: acute cystitis Hematuria presence: with hematuria Qualified Code(s): N30.01 - Acute cystitis with hematuria (3) Hypertension Conclusion/Plan: Patient is on amlodipine and carvedilol. Will resume once verified. (5) GERD (gastroesophageal reflux disease) Conclusion/Plan: Will order Protonix (8) Hx of seizure disorder Conclusion/Plan: On phenytoin 500 mg p.o. every pm - Lab Results Fish Bones: 05/16/20 06:09 05/16/20 11:35
[2020-05-16] MEDS: POTASSIUM CHLOR 10 MEQ/100 ML 10 MEQ/100 ML BAG IV SCH ×4 (05:20→08:37)
[2020-05-16] MEDS: MORPHINE 2 MG/ML CARPUJECT IVP PRN ×4 (06:05→22:06)
[2020-05-16 06:17] LABS: BASOPHILS # (AUTO) 0.1 10^3/uL (0.0-0.1); BASOPHILS % (AUTO) 0.6 %; EOSINOPHILS # (AUTO) 0.1 10^3/uL (0.0-0.7); EOSINOPHILS % (AUTO) 1.1 %; HGB - HEMOGLOBIN 13.2 g/dL (12.0-16.0); LYMPHOCYTES # (AUTO) 2.5 10^3/uL (1.5-3.5); LYMPHOCYTES % (AUTO) 23.9 %; MEAN CORPUSCULAR HEMOGLOBIN 29.5 pg (27.0-31.0); MEAN CORPUSCULAR HGB CONC 34.1 g/dL (32.0-36.0); MEAN CORPUSCULAR VOLUME 86.4 fL (81.0-99.0); MEAN PLATELET VOLUME 9.5 fL (7.9-10.8); MONOCYTES % (AUTO) 9.4 %; NEUTROPHILS # (AUTO) 6.8 10^3/uL (1.5-6.6); NEUTROPHILS % (AUTO) 64.4 %; PLT - PLATELET COUNT 396 10^3/uL (130-450); RED BLOOD COUNT 4.48 10^6/uL (4.20-5.40); RED CELL DISTRIBUTION WIDTH 13.9 % (12.0-15.0); WHITE BLOOD COUNT 10.5 x10^3/uL (4.8-10.8)
[2020-05-16 06:22] LABS: CALCIUM 9.4 mg/dL (8.5-10.3); CREATININE 0.6 mg/dL (0.4-1.0)
[2020-05-16] MEDS: ONDANSETRON 4 MG/2 ML VIAL IVP PRN ×3 (06:53→19:27)
--- NOTE | 2020-05-16 07:18 | CT Report ---
PROCEDURE: HEAD WO INDICATIONS: fall, head injury, worsening STACY TECHNIQUE: Noncontrast 4.5 mm thick angled axial sections acquired from the foramen magnum to the vertex. For r adiation dose reduction, the following was used: automated exposure control, adjustment of mA and/or kV according to patient size. COMPARISON: None. FINDINGS: Image quality: Excellent. CSF spaces: Basal cisterns are patent. No extra-axial fluid collections. Ventricles are normal in size and shape. Brain: No midline shift. No intracranial masses or hemorrhage. Pablo-white matter interface is norm al. Skull and face: Calvarium and visualized facial bones are intact, without suspicious lesions. Sinuses: Visualized sinuses and mastoids are clear. IMPRESSION: No acute intracranial disease process. Reviewed by: Tarsha Gonzales MD, PhD on 05/16/2020 7:16 AM PDT Approved by: Tarsha Gonzales MD, PhD on 05/16/2020 7:16 AM PDT Station ID: [id number]
--- NOTE | 2020-05-16 07:21 | CT Report ---
PROCEDURE: CERVICAL SPINE WO INDICATIONS: fall, neck tenderness TECHNIQUE: Noncontrast 3 mm thick sections acquired from the skull base to the T4 level. Sagittal and coronal r eformats were then constructed. For radiation dose reduction, the following was used: automated exp osure control, adjustment of mA and/or kV according to patient size. COMPARISON: None. FINDINGS: Image quality: Excellent. Bones: No fractures or dislocations. Visualized superior ribs are intact. Spine degenerative disc d isease and facet arthropathy are noted. C4-C6 vertebral body bony fusion. Soft tissues: Prevertebral soft tissues are normal in thickness. No paravertebral hematomas. No ap ical pneumothoraces. 1.5 cm right thyroid nodule. Right IJ central venous catheter. IMPRESSION: 1. No fracture. No acute osseous lesion. If there is continued clinical concern for pathology, then M RI should be considered for further evaluation. 2. 1.5 cm right thyroid nodule. Recommend thyroid ultrasound when clinically feasible for definitive characterization. Reviewed by: Tarsha Gonzales MD, PhD on 05/16/2020 7:20 AM PDT Approved by: Tarsha Gonzales MD, PhD on 05/16/2020 7:20 AM PDT Station ID: [id number]
[2020-05-16 07:37] LABS: BILIRUBIN,URINE NEGATIVE (NEGATIVE); GLUCOSE, URINE (UA) NEGATIVE (NEGATIVE); KETONES,URINE (UA) NEGATIVE (NEGATIVE); LEUKOCYTE ESTERASE, URINE SMALL (NEGATIVE); NITRITE,URINE NEGATIVE (NEGATIVE); OCCULT BLOOD,URINE MODERATE (NEGATIVE); PH,URINE 6.5 PH (5.0-7.5); PROTEIN,URINE 30 mg/dL (NEGATIVE); UROBILINOGEN,URINE 0.2 (NORMAL) E.U./dL (NORMAL)
[2020-05-16 07:41] LABS: CLARITY,URINE HAZY (CLEAR)
[2020-05-16] MEDS ORDERED: hydrALAZINE INJ 20 MG/ML VIAL IVP PRN (07:52)
[2020-05-16 07:54] LABS: BACTERIA,URINE Rare /HPF (None Seen); SQUAMOUS EPITHELIAL CELL,UR MOD Squamous (<= Few)
[2020-05-16] MEDS ORDERED: HYDROcod/ACETAM 10 MG/325 MG TABLET PO PRN (08:00)
[2020-05-16] MEDS ORDERED: ACETAMINOPHEN 325 MG TABLET PO PRN (08:02)
[2020-05-16] MEDS ORDERED: BUTALB/ACETAM/CAFF 50/325/40MG TABLET PO PRN (08:03)
--- NOTE | 2020-05-16 08:03 | XRAY Report ---
PROCEDURE: Hip w/Pelvis 2-3V RT INDICATIONS: fall, pain, tenderness TECHNIQUE: AP pelvis with lateral view(s) of the right hip(s). COMPARISON: None. FINDINGS: Bones: No fractures or dislocations. Pelvic ring appears intact. No suspicious bony lesions. Posts urgical changes compatible with unipolar left hip arthroplasty. Mild right hip osteoarthritis. Soft tissues: The visualized bowel gas pattern is normal. No suspicious soft tissue calcifications. IMPRESSION: No fracture. No osseous lesion. If there is continued clinical concern for pathology, then repeat pl ain film radiographs (7-10 days) or advanced imaging (CT, MR, bone scan) should be considered for fur ther evaluation. . Reviewed by: Tarsha Gonzales MD, PhD on 05/16/2020 8:01 AM PDT Approved by: Tarsha Gonzales MD, PhD on 05/16/2020 8:01 AM PDT Station ID: [id number]
--- NOTE | 2020-05-16 08:08 | XRAY Report ---
PROCEDURE: Chest for Line Placement INDICATIONS: Post centeral line placement TECHNIQUE: One view of the chest was acquired. COMPARISON: 02/20/2020 FINDINGS: Surgical changes and devices: Central venous catheter projects in the distal SVC via right IJ approac h. Lungs and pleura: No pleural effusions or pneumothorax. Lungs are clear. Mediastinum: Mediastinal contours appear normal. Heart size is normal. Bones and chest wall: No suspicious bony lesions. Overlying soft tissues appear unremarkable. IMPRESSION: Central venous catheter projects the distal SVC. No pneumothorax. Reviewed by: Tarsha Gonzales MD, PhD on 05/16/2020 8:07 AM PDT Approved by: Tarsha Gonzales MD, PhD on 05/16/2020 8:07 AM PDT Station ID: [id number]
[2020-05-16] MEDS: amLODIPine 5 MG TABLET PO SCH (08:20)
[2020-05-16] MEDS: carvediloL 12.5 MG TABLET PO SCH ×2 (08:21→21:57)
[2020-05-16] MEDS: levETIRAcetam 500 MG/5 ML UDC PO SCH ×2 (08:21→21:58)
[2020-05-16] MEDS ORDERED: POTASSIUM CHLORIDE 20 MEQ TABLET PO ONE (08:26)
[2020-05-16] MEDS ORDERED: SPIRONOLACTONE 25 MG TABLET PO SCH (08:30)
[2020-05-16] MEDS: SODIUM CHLORIDE FLUSH 0.9% 10 ML SYRINGE IVP SCH ×2 (08:38→19:27)
[2020-05-16 08:49] LABS: MUDS CUTOFF CONCENTRATIONS CUTOFF CONC BELOW:
[2020-05-16 09:01] LABS: COCAINE SCREEN URINE NEGATIVE (NEGATIVE)
[2020-05-16 09:02] LABS: AMPHETAMINE SCREEN,URINE NEGATIVE (NEGATIVE); BENZODIAZEPINES SCREEN, URINE NEGATIVE (NEGATIVE); METHADONE SCREEN, URINE NEGATIVE (NEGATIVE); METHAMPHETAMINES SCREEN, URINE POSITIVE (NEGATIVE); OPIATE SCREEN, URINE POSITIVE (NEGATIVE); OXYCODONE SCREEN, URINE NEGATIVE (NEGATIVE); PROPOXYPHENE SCREEN, URINE NEGATIVE (NEGATIVE); TRICYCLIC ANTIDEPRESSANT,URINE NEGATIVE (NEGATIVE)
[2020-05-16] MEDS: HYDROcod/ACETAM 10 MG/325 MG TABLET PO PRN ×2 (09:57→16:27)
--- NOTE | 2020-05-16 11:00 | Ultrasound Report ---
PROCEDURE: Retroperitoneal INDICATIONS: RT FLANK PAIN TECHNIQUE: Real-time scanning was performed of the retroperitoneal organs, with image documentation. COMPARISON: None. FINDINGS: Kidneys: Kidneys are normal in size. Right kidney measures 13.1 cm long; left kidney measures 10.8 cm long. Right renal cortical thickness is 0.7 cm; left renal cortical thickness is 0.7 cm. Mild lesli al cortical thinning and prominence of the renal sinus fat, but normal cortical echogenicity compared to the internal controls. No solid masses, hydronephrosis, or nephrolithiasis. Urinary bladder: Patient voided immediately prior to the exam. At the end of the exam, the urinary bl adder is filled with 54 cc. Bilateral ureteral jets were visible. No bladder mass is evident. IMPRESSION: 1. No evidence of intrarenal calcification or urinary obstruction. 2. Prominence of the renal sinus fat and cortical thinning may be physiologic for the patient versus indication of underlying chronic medical renal disease. Correlate clinically. Reviewed by: Karla Dhillon MD on 05/16/2020 9:59 AM AUGIE Approved by: Karla Dhillon MD on 05/16/2020 9:59 AM AUGIE Station ID: [id number]
[2020-05-16 11:53] LABS: CALCIUM 9.3 mg/dL (8.5-10.3); CREATININE 0.6 mg/dL (0.4-1.0)
[2020-05-16] MEDS ORDERED: POTASSIUM CHLORIDE 20 MEQ TABLET PO SCH ×2 (12:23→17:03)
[2020-05-16] MEDS: SODIUM CHLORIDE FLUSH 0.9% 10 ML SYRINGE IVP PRN (13:13)
--- NOTE | 2020-05-16 14:05 | Discharge Plan ---
Discharge Plan Problem Reviewed?: Yes Disposition: Home, Self Care Condition: Stable No Smoking: If you smoke, Please STOP! Call for help.
--- NOTE | 2020-05-16 15:38 | PROVIDER PROGRESS NOTE ---
Assessment/Plan - Problem List (1) Diarrhea Assessment/Plan: Patient Patient report 3 watery diarrhea,We order C. difficile test is pending, Continue intravenous IV fluids, continue laboratory chief (2) Hypokalemia Patient has severe Chronic hypokalemia. After we replaced the potassium but the patient potassium 3.1.We will continue replaced with potassium and laboratory chief. Patient take [id number] twice daily in the home with 3 times daily 40 Meq potassium, will resume (3) Urinary tract infection Patient complaining urinary burning sensation but urinalysis does not questionable to patient have a urine tract infection.Ultrasound of abdomen review no hydronephrosis, no kidney stone (4) Hypertension Patient is on amlodipine and carvedilol, Spironolactone. resume.Add hydralazine as needed (5) GERD (gastroesophageal reflux disease) continue Protonix (6)seizure Patient has a history of seizure, patient have 3 home medication for seizure, we will resume, Phenytoin is in the therapeutic range, we will check Keppra concentration in serum. Seizure precaution - Current Meds Current Meds: Current Medications Generic Name Dose Route Start Last Admin Trade Name Freq PRN Reason Stop Dose Admin Hydrocodone Bitart/Acetaminophen 1 tab 05/16/20 08:02 05/16/20 09:57 [place] 10 Mg/325 Mg PO 1 tab Q6HR PRN Administration PAIN Amlodipine Besylate 10 mg 05/16/20 08:30 05/16/20 08:20 Norvasc PO 10 mg DAILY PADMA Administration Carvedilol 12.5 mg 05/16/20 08:30 05/16/20 08:21 Coreg PO 12.5 mg BID PADMA Administration Levetiracetam 1,000 mg 05/16/20 09:00 05/16/20 08:21 Keppra PO 1,000 mg BID PADMA Administration Morphine Sulfate 2 mg 05/16/20 05:46 05/16/20 13:13 Morphine (Carpuject) IVP 2 mg Q2HR PRN Administration PAIN Ondansetron HCl 4 mg 05/16/20 04:15 05/16/20 13:34 Zofran Inj IVP 4 mg Q6HR PRN Administration Nausea / Vomiting Sodium Chloride 10 ml 05/16/20 04:15 05/16/20 13:13 Normal Saline Flush 0.9% IVP 10 ml PRN PRN Administration NEEDED PER PROVIDER ORDERS Sodium Chloride 10 ml 05/16/20 09:00 05/16/20 08:38 Normal Saline Flush 0.9% IVP 10 ml 0100,0900,1700 PADMA Administration Spironolactone 50 mg 05/16/20 08:30 05/16/20 08:21 Aldactone PO 50 mg BID PADMA Administration - Lab Result Fish Bone Diagrams: 05/16/20 06:09 05/16/20 11:35 - Additional Planning My Orders: My Active Orders 05/16/20 C DIFF PCR Stat 05/16/20 07:52 hydrALAZINE INJ [Apresoline Inj] 10 mg IVP Q4H PRN 05/16/20 08:02 Acetaminophen [Tylenol] 650 mg PO Q4HR PRN HYDROcodone/ACET 10/325 [[place] 10 mg/325 mg] 1 tab PO Q6HR PRN 05/16/20 08:03 Butalb/Acetam/Caff 50/325/40 [Fioricet] 1 tab PO Q6HR PRN 05/16/20 08:24 LEVETIRACETAM (KEPPRA) LEVEL [REFLAB] Urgent 05/16/20 08:30 Spironolactone [Aldactone] 50 mg PO BID amLODIPine [Norvasc] 10 mg PO DAILY carvediloL [Coreg] 12.5 mg PO BID 05/16/20 09:00 levETIRAcetam [Keppra] 1,000 mg PO BID 05/16/20 Lunch Full Liquid Diet [DIET] Subjective - Subjective Patient Reports: Feeling Better Objective Vital Signs: Vital Signs - 24 hr 05/15/20 05/16/20 05/16/20 23:26 02:55 03:25 Temperature 36.7 C Heart Rate 79 81 115 H Heart Rate [ Brachial] Respiratory 24 18 30 H Rate Blood Pressure 192/117 H 181/100 H 195/99 H Blood Pressure [Left Brachial artery] Blood Pressure [Right Brachial artery] O2 Saturation 99 97 98 05/16/20 05/16/20 05/16/20 05:22 06:49 07:31 Temperature 36.9 C 36.8 C Heart Rate Heart Rate [ 91 Brachial] Respiratory 16 18 Rate Blood Pressure Blood Pressure 206/90 H 181/91 H 186/92 H [Left Brachial artery] Blood Pressure [Right Brachial artery] O2 Saturation 97 96 05/16/20 05/16/20 05/16/20 09:39 11:04 13:31 Temperature 37.2 C 37.2 C Heart Rate 83 Heart Rate [ 97 83 Brachial] Respiratory 18 20 Rate Blood Pressure Blood Pressure 169/86 H [Left Brachial artery] Blood Pressure 139/84 H [Right Brachial artery] O2 Saturation 97 95 Oxygen O2 Source Room air I&O (Last 24 Hrs): Intake and Output Totals x24h 05/14/20 05/15/20 05/16/20 23:59 23:59 23:59 Intake Total 1240 Output Total 800 Balance 440 General: Alert, Oriented x3, No acute distress HEENT: Atraumatic, PERRLA Neck: Supple Lymphatic: no adenopathy Neuro: Alert, Non Focal, Oriented Times 3 Cardiovascular: Regular rate, Normal S1, Normal S2 Respiratory: Chest non-tender, No respiratory distress, Breath sounds nml Abdomen: Normal bowel sounds, Soft, No tenderness Extremities: Normal pulses - Results Results: Laboratory Results WBC 10.5 x10^3/uL (4.8-10.8) 05/16/20 06:09 RBC 4.48 10^6/uL (4.20-5.40) 05/16/20 06:09 Hgb 13.2 g/dL (12.0-16.0) 05/16/20 06:09 Hct 38.7 % (37.0-47.0) 05/16/20 06:09 MCV 86.4 fL (81.0-99.0) 05/16/20 06:09 MCH 29.5 pg (27.0-31.0) 05/16/20 06:09 MCHC 34.1 g/dL (32.0-36.0) 05/16/20 06:09 RDW 13.9 % (12.0-15.0) 05/16/20 06:09 Plt Count 396 10^3/uL (130-450) 05/16/20 06:09 MPV 9.5 fL (7.9-10.8) 05/16/20 06:09 Neut # (Auto) 6.8 10^3/uL (1.5-6.6) H 05/16/20 06:09 Lymph # (Auto) 2.5 10^3/uL (1.5-3.5) 05/16/20 06:09 [place] # (Auto) 1.0 10^3/uL (0.0-1.0) 05/16/20 06:09 Eos # (Auto) 0.1 10^3/uL (0.0-0.7) 05/16/20 06:09 Baso # (Auto) 0.1 10^3/uL (0.0-0.1) 05/16/20 06:09 Absolute Nucleated RBC 0.00 x10^3/uL 05/16/20 06:09 Nucleated RBC % 0.0 /100WBC 05/16/20 06:09 Sodium 137 mmol/L (135-145) 05/16/20 11:35 Potassium 3.1 mmol/L (3.5-5.0) L 05/16/20 11:35 Chloride 103 mmol/L (101-111) 05/16/20 11:35 Carbon Dioxide 23 mmol/L (21-32) 05/16/20 11:35 Anion Gap 11.0 (6-13) 05/16/20 11:35 BUN 6 mg/dL (6-20) 05/16/20 11:35 Creatinine 0.6 mg/dL (0.4-1.0) 05/16/20 11:35 Estimated GFR (MDRD) 104 (>89) 05/16/20 11:35 Glucose 124 mg/dL (70-100) H 05/16/20 11:35 Calcium 9.3 mg/dL (8.5-10.3) 05/16/20 11:35 Magnesium 1.7 mg/dL (1.7-2.8) 05/16/20 06:09 Total Bilirubin 0.5 mg/dL (0.2-1.0) 05/16/20 00:40 AST 14 IU/L (10-42) 05/16/20 00:40 ALT 14 IU/L (10-60) 05/16/20 00:40 Alkaline Phosphatase 139 IU/L (42-121) H 05/16/20 00:40 Total Protein 7.9 g/dL (6.7-8.2) 05/16/20 00:40 Albumin 4.7 g/dL (3.2-5.5) 05/16/20 00:40 Globulin 3.2 g/dL (2.1-4.2) 05/16/20 00:40 Albumin/Globulin Ratio 1.5 (1.0-2.2) 05/16/20 00:40 Lipase 36 U/L (22-51) 05/16/20 00:40 Urine Color YELLOW 05/16/20 07:25 Urine Clarity HAZY (CLEAR) 05/16/20 07:25 Urine pH 6.5 PH (5.0-7.5) 05/16/20 07:25 Ur Specific [place] 1.025 (1.002-1.030) 05/16/20 07:25 Urine Protein 30 mg/dL (NEGATIVE) H 05/16/20 07:25 Urine Glucose (UA) NEGATIVE mg/dL (NEGATIVE) 05/16/20 07:25 Urine Ketones NEGATIVE mg/dL (NEGATIVE) 05/16/20 07:25 Urine Occult Blood MODERATE (NEGATIVE) H 05/16/20 07:25 Urine Nitrite NEGATIVE (NEGATIVE) 05/16/20 07:25 Urine Bilirubin NEGATIVE (NEGATIVE) 05/16/20 07:25 Urine Urobilinogen 0.2 (NORMAL) E.U./dL (NORMAL) 05/16/20 07:25 Ur Leukocyte Esterase SMALL (NEGATIVE) H 05/16/20 07:25 Urine RBC 6-10 /HPF (0-5) H 05/16/20 07:25 Urine WBC >25 /HPF (0-5) H 05/16/20 07:25 Ur Squamous Epith Cells MOD Squamous (<= Few) H 05/16/20 07:25 Urine Bacteria Rare /HPF (None Seen) 05/16/20 07:25 Ur Microscopic Review INDICATED 05/16/20 07:25 Urine Culture Comments NOT INDICATED 05/16/20 07:25 Urine Opiates Screen POSITIVE (NEGATIVE) H 05/16/20 08:40 Ur Oxycodone Screen NEGATIVE (NEGATIVE) 05/16/20 08:40 Urine Methadone Screen NEGATIVE (NEGATIVE) 05/16/20 08:40 Ur Propoxyphene Screen NEGATIVE (NEGATIVE) 05/16/20 08:40 Ur Barbiturates Screen POSITIVE (NEGATIVE) H 05/16/20 08:40 Phenytoin < 2.5 ug/mL 05/16/20 00:40 Ur Tricyclics Screen NEGATIVE (NEGATIVE) 05/16/20 08:40 Ur Phencyclidine Scrn NEGATIVE (NEGATIVE) 05/16/20 08:40 Ur Amphetamine Screen NEGATIVE (NEGATIVE) 05/16/20 08:40 U Methamphetamines Scrn POSITIVE (NEGATIVE) H 05/16/20 08:40 U Benzodiazepines Scrn NEGATIVE (NEGATIVE) 05/16/20 08:40 Urine Cocaine Screen NEGATIVE (NEGATIVE) 05/16/20 08:40 U Cannabinoids Screen NEGATIVE (NEGATIVE) 05/16/20 08:40 - Procedures Procedures: Procedures INSERTION OF INFUSION DEV INTO L SUBCLAV VEIN, PERC APPROACH (04/09/19) INSERTION OF INFUSION DEV INTO SUP VENA CAVA, PERC APPROACH (01/23/17) ABX Reporting Has patient been on IV antibiotics over the past 48 hours?: Yes Current Medications - Current Medications Current Medications: Active Medications Acetaminophen (Tylenol) 650 mg PO Q4HR PRN PRN Reason: Pain or Fever > 38C (100.4F) Acetaminophen/Butalbital/Caffeine (Fioricet) 1 tab PO Q6HR PRN PRN Reason: HEADACHE Last Admin: 05/16/20 18:11 Dose: 1 tab Documented by: Hydrocodone Bitart/Acetaminophen ([place] 10 Mg/325 Mg) 1 tab PO Q6HR PRN PRN Reason: PAIN Last Admin: 05/16/20 16:27 Dose: 1 tab Documented by: Amlodipine Besylate (Norvasc) 10 mg PO DAILY [facility] Last Admin: 05/16/20 08:20 Dose: 10 mg Documented by: Carvedilol (Coreg) 12.5 mg PO BID [facility] Last Admin: 05/16/20 08:21 Dose: 12.5 mg Documented by: Cetirizine HCl (Zyrtec) 10 mg PO DAILY [facility] Diphenhydramine HCl (Benadryl) 25 mg PO Q6H PRN PRN Reason: Allergy Symptoms Hydralazine HCl (Apresoline Inj) 10 mg IVP Q4H PRN PRN Reason: Hypertensive Emergency Lactated Ringer's (Lr) 1,000 mls @ 83.333 mls/hr IV .Q12H [facility] Levetiracetam (Keppra) 1,000 mg PO BID [facility] Last Admin: 05/16/20 08:21 Dose: 1,000 mg Documented by: Levofloxacin (Levaquin) 500 mg PO DAILY PADMA Methocarbamol (Robaxin) 750 mg PO QID PADMA Last Admin: 05/16/20 17:59 Dose: 750 mg Documented by: Morphine Sulfate (Morphine (Carpuject)) 2 mg IVP Q2HR PRN PRN Reason: PAIN Last Admin: 05/16/20 13:13 Dose: 2 mg Documented by: Ondansetron HCl (Zofran Inj) 4 mg IVP Q6HR PRN PRN Reason: Nausea / Vomiting Last Admin: 05/16/20 13:34 Dose: 4 mg Documented by: Patient Own Med ( Melatonin [Melatonin ] 10 Mg) 1 each PO QPM PRN PRN Reason: Insomnia Phenytoin Sodium (Dilantin) 500 mg PO QPM PADMA Potassium Citrate (Urocit-K) 40 meq PO TIDWM PADMA Pregabalin (Lyrica) 100 mg PO TID [facility] Sodium Chloride (Normal Saline Flush 0.9%) 10 ml IVP PRN PRN PRN Reason: NEEDED PER PROVIDER ORDERS Last Admin: 05/16/20 13:13 Dose: 10 ml Documented by: Sodium Chloride (Normal Saline Flush 0.9%) 10 ml IVP 0100,0900,1700 PADMA Last Admin: 05/16/20 08:38 Dose: 10 ml Documented by: Spironolactone (Aldactone) 75 mg PO BID [facility] Omeprazole [PriLOSEC] 20 mg PO BID 02/09/18 Pregabalin [Lyrica] 100 mg PO TID 02/09/18 levETIRAcetam [Keppra] 1,000 mg PO BID 02/09/18 Phenytoin Sodium Extended 500 mg PO QPM 03/16/18 Cetirizine [ZyrTEC] 10 mg PO DAILY 09/06/18 Melatonin 10 mg PO QPM PRN 09/06/18 Magnesium Oxide [Magnesium] 500 mg PO DAILY 09/14/18 diphenhydrAMINE [Benadryl] 25 mg PO PRN PRN 09/14/18 methocarbamoL [Methocarbamol] 750 mg PO QID 09/20/18 Potassium Citrate [Potassium Citrate ER] 40 meq PO TIDWM 04/09/19 Spironolactone 75 mg PO BID 04/09/19 Amlodipine Besylate 10 mg PO DAILY 10/31/19 Butalb/Acetaminophen/Caffeine [Agjsdf-Nbhrywbr-Sjjo 50-300-40] 1 cap PO DAILY PRN 02/20/20 Lasmiditan Succinate [Reyvow] 50 mg PO DAILY PRN 05/16/20 Ondansetron [Ondansetron Odt] 8 mg PO TID 05/16/20 Prochlorperazine Maleate [Compazine] 10 mg PO QID PRN 05/16/20
--- NOTE | 2020-05-16 15:40 | PHARMACY PROGRESS NOTE ---
- Best Possible Medication History Admit Date and Time: 05/16/20 1418 Processed by: Pharmacy Medication History completed: Yes Patient Interview: Completed Secondary Source(s): Pharmacy records, Insurance records As the person ultimately responsible for medication therapy, providers are able to order a medication from an existing home medication list in [facility] via the "Reconcile Routine" prior to Confirmation of that medication by air support control officer. Such practice is discouraged except when the physician, in their clinical judgment, deems that a medical need exists for a medication without regard to previous use.
[2020-05-16] MEDS ORDERED: diphenhydrAMINE 25 MG CAPSULE PO PRN (16:57)
[2020-05-16] MEDS ORDERED: MELATONIN 10 MG PO PRN (16:57)
[2020-05-16] MEDS: methocarbamoL 500 MG TABLET PO SCH ×2 (17:59→21:58)
[2020-05-16] MEDS: LACTATED RINGERS 1,000 ML IV SCH (19:27)
[2020-05-16] MEDS ORDERED: PHENYTOIN ER 100 MG CAPSULE PO SCH (21:00)
[2020-05-16] MEDS: SPIRONOLACTONE 25 MG TABLET PO SCH (21:59)
[2020-05-16] MEDS: PREGABALIN 100 MG CAPSULE PO SCH (22:00)
[2020-05-17] MEDS: SODIUM CHLORIDE FLUSH 0.9% 10 ML SYRINGE IVP SCH ×2 (01:28→07:40)
[2020-05-17] MEDS: MORPHINE 2 MG/ML CARPUJECT IVP PRN ×4 (02:16→10:29)
[2020-05-17] MEDS: SODIUM CHLORIDE FLUSH 0.9% 10 ML SYRINGE IVP PRN ×2 (02:16→10:29)
[2020-05-17] MEDS: ONDANSETRON 4 MG/2 ML VIAL IVP PRN ×2 (02:16→08:06)
[2020-05-17] MEDS: PREGABALIN 100 MG CAPSULE PO SCH (06:14)
[2020-05-17] MEDS: HYDROcod/ACETAM 10 MG/325 MG TABLET PO PRN ×2 (06:17→12:12)
[2020-05-17 06:40] LABS: BASOPHILS # (AUTO) 0.1 10^3/uL (0.0-0.1); BASOPHILS % (AUTO) 0.7 %; CALCIUM 9.2 mg/dL (8.5-10.3); CREATININE 0.5 mg/dL (0.4-1.0); EOSINOPHILS # (AUTO) 0.3 10^3/uL (0.0-0.7); EOSINOPHILS % (AUTO) 4.2 %; HGB - HEMOGLOBIN 11.6 g/dL (12.0-16.0); LYMPHOCYTES # (AUTO) 2.7 10^3/uL (1.5-3.5); LYMPHOCYTES % (AUTO) 40.3 %; MEAN CORPUSCULAR HEMOGLOBIN 29.8 pg (27.0-31.0); MEAN CORPUSCULAR HGB CONC 33.1 g/dL (32.0-36.0); MEAN PLATELET VOLUME 9.7 fL (7.9-10.8); MONOCYTES # (AUTO) 0.7 10^3/uL (0.0-1.0); MONOCYTES % (AUTO) 10.9 %; NEUTROPHILS # (AUTO) 2.9 10^3/uL (1.5-6.6); NEUTROPHILS % (AUTO) 43.5 %; PLT - PLATELET COUNT 347 10^3/uL (130-450); RED BLOOD COUNT 3.89 10^6/uL (4.20-5.40); RED CELL DISTRIBUTION WIDTH 14.5 % (12.0-15.0); WHITE BLOOD COUNT 6.7 x10^3/uL (4.8-10.8)
[2020-05-17] MEDS: LACTATED RINGERS 1,000 ML IV SCH (07:33)
[2020-05-17] MEDS ORDERED: POTASSIUM CHLORIDE 20 MEQ TABLET PO SCH (08:42)
[2020-05-17] MEDS: POTASSIUM CITRATE 5 MEQ TABLET PO SCH ×2 (08:43→12:13)
[2020-05-17] MEDS: amLODIPine 5 MG TABLET PO SCH (08:45)
[2020-05-17] MEDS: methocarbamoL 500 MG TABLET PO SCH (08:46)
[2020-05-17] MEDS: carvediloL 12.5 MG TABLET PO SCH (08:47)
[2020-05-17] MEDS: SPIRONOLACTONE 25 MG TABLET PO SCH (08:48)
[2020-05-17] MEDS: levETIRAcetam 500 MG/5 ML UDC PO SCH (08:49)
[2020-05-17] MEDS ORDERED: CETIRIZINE 10 MG TABLET PO SCH (09:00)
[2020-05-17] MEDS ORDERED: levoFLOXacin 250 MG TABLET PO SCH (09:00)
[2020-05-17] MEDS ORDERED: SACCHAROMYCES BOULARDII 250 MG CAPSULE PO SCH ×2 (09:22→17:00)
--- NOTE | 2020-05-17 10:45 | Discharge Plan ---
Discharge Plan Problem Reviewed?: Yes Disposition: Home, Self Care Condition: Stable Prescriptions: Loperamide [Imodium] 2 mg PO QID PRN #15 capsule PRN Reason: Diarrhea Cholecalciferol (Vitamin D3) [Vitamin D3] 25 mcg PO DAILY #30 capsule Diet: Regular Activity Restrictions: No Restrictions Shower Restrictions: No (fall precaution) Instruction Topics: Diarrhea, Loperamide tablets or capsules Health Concerns: diarrhea Plan of Treatment: Your C.diff test is negative, you are prescribed imodium to control your diarrhea as needed, advise keep you have hydration. Your UA analysis and US of kidney and urinary track were unremarkable, negative for kidney stone. Keep hydration as well. Care Goals: stabilization and improvement of your medical conditions Assessment: discussed the care plan with you, you understood and agreed. Additional Instructions or Follow Up instructions: You may followup with your PCP in one to two weeks. Should your symptoms return or worsen, you may present ER or call 911 for help. No Smoking: If you smoke, Please STOP! Call for help.
--- NOTE | 2020-05-17 10:54 | DISCHARGE SUMMARY ---
Discharge Summary Admit Date: 05/15/20 Discharge Date: 05/17/20 Discharging Provider: Artie Flores Primary Care Provider: Leo Morales Condition at Discharge: Stable Discharge Disposition: 01 Home, Self Care Discharge Facility Name: home - DIAGNOSES Discharge Diagnoses with Status of Each Condition: (1) Diarrhea controlled. Patient's C. difficile testing is negative, patient prescribed Imodium as needed. (2) Hypokalemia K is 3.3 now. pt was prescribed potassium in the hospital. Patient has chronic hypokalemia, patient had potassium pill and spironolactone in the home. Advised patient follow her PCP continue monitor potassium level. (3) Urinary tract infection resolved. Repeated urinalysis still showed contaminated, not indicated patient had urine tract infection. Patient reported her symptoms was resolved (4) Hypertension stable (5) GERD (gastroesophageal reflux disease) stable (6)seizure stable, resume home meds - HPI History of Present Illness: refer from Dr. Stevenson's Patient is a 55-year-old female who presented to the ED after a fall. She has been experiencing nausea, vomiting and diarrhea for the past 4 days. In one such episode of nausea and vomiting today she fell and hit her head. Her daughter was concerned due to her previous Hx of a brain bleed and called EMS so that she could be evaluated in the ED. The patient also reports that she has been having burning on urination, right flank pain and hematuria. She explains that she usually experiences nausea and vomiting when she has a urinary tract infection. As a result of her symptoms she has been unable to keep anything down. Work-up in the ED showed a potassium of 2.2. As a result she was presented for admission for correction. At bedside she appeared to be resting comfortably. She denied chest pain, dyspnea, fever or chills. - HOSPITAL COURSE Hospital Course: Patient was admitted for evaluation of fall in the home. CT of the head and spin al cord and hip, CXR review unremarkable. Patient also report he had urinary burning sensation, also patient has potassium 2.2. Repeated urinalysis indicated contamination. Patient has a chronic hypokalemia, patient was replaced with potassium. Patient also complained diarrhea, C. difficile test is negative, then patient's diarrhea was controlled. After treated in the hospital, patient reported she feels much better and patient was discharged in stable condition. - ALLERGIES Allergies/Adverse Reactions: Allergies Allergy/AdvReac Type Severity Reaction Status Date / Time Penicillins Allergy Severe Respiratory Verified 02/19/20 23:58 bacitracin Allergy Mild Hives Verified 02/19/20 23:58 [From Neosporin ([id number])] bacitracin zinc * Allergy Mild Itching Verified 02/19/20 23:58 [From Neosporin ([id number])] neomycin sulfate * Allergy Mild Itching Verified 02/19/20 23:58 [From Neosporin ([id number])] lamotrigine Allergy Itching Verified 02/19/20 23:58 venom-honey bee Allergy Unknown Verified 02/19/20 23:58 [bee venom (honey bee)] ciprofloxacin AdvReac Emesis Verified 02/19/20 23:58 - MEDICATIONS Home Medications: Ambulatory Orders Medication Instructions Recorded Confirmed Omeprazole [PriLOSEC] 20 mg PO BID 02/09/18 05/16/20 Pregabalin [Lyrica] 100 mg PO TID 02/09/18 05/16/20 levETIRAcetam [Keppra] 1,000 mg PO BID 02/09/18 05/16/20 Phenytoin Sodium Extended 500 mg PO QPM 03/16/18 05/16/20 Cetirizine [ZyrTEC] 10 mg PO DAILY 09/06/18 05/16/20 Melatonin 10 mg PO QPM PRN 09/06/18 05/16/20 Magnesium Oxide [Magnesium] 500 mg PO DAILY 09/14/18 05/16/20 diphenhydrAMINE [Benadryl] 25 mg PO PRN PRN 09/14/18 05/16/20 methocarbamoL [Methocarbamol] 750 mg PO QID 09/20/18 05/16/20 Potassium Citrate [Potassium 40 meq PO TIDWM 04/09/19 05/16/20 Citrate ER] Spironolactone 75 mg PO BID 04/09/19 05/16/20 carvediloL [Carvedilol] 12.5 mg PO Q12H #60 tablet 04/11/19 05/16/20 Amlodipine Besylate 10 mg PO DAILY 10/31/19 05/16/20 Butalb/Acetaminophen/Caffeine 1 cap PO DAILY PRN 02/20/20 05/16/20 [Dzqtpv-Twrnjomg-Elie 50-300-40] Lasmiditan Succinate [Reyvow] 50 mg PO DAILY PRN 05/16/20 Ondansetron [Ondansetron Odt] 8 mg PO TID 05/16/20 05/16/20 Prochlorperazine Maleate 10 mg PO QID PRN 05/16/20 05/16/20 [Compazine] Cholecalciferol (Vitamin D3) 25 mcg PO DAILY #30 capsule 05/17/20 [Vitamin D3] Loperamide [Imodium] 2 mg PO QID PRN #15 capsule 05/17/20 - PHYSICAL EXAM AT DISCHARGE General Appearance: positive: No acute distress, Alert. negative: Lethargic Eyes Bilateral: positive: Normal inspection, PERRL, No lid inflammation ENT: positive: ENT inspection nml, No signs of dehydration. negative: Purulent nasal drainage Neck: positive: Nml inspection, Thyroid nml, Trachea midline. negative: Thyromegaly, Stiff neck, Tracheal deviation Respiratory: positive: Chest non-tender, No respiratory distress, Breath sounds nml. negative: Wheezes, Rales, Rhonchi Cardiovascular: positive: Regular rate & rhythm, No murmur. negative: Tachycardia, Bradycardia, Systolic murmur, Diastolic murmur Peripheral Pulses: positive: 2+ Abdomen: positive: Non-tender, Nml bowel sounds, No distention. negative: Tenderness, Guarding, Rebound Back: positive: Nml inspection. negative: CVA tenderness (R), CVA tenderness (L) Skin: positive: Color nml, No rash, Warm. negative: Cyanosis, Diaphoresis, Pallor Extremities: positive: Non-tender, Full ROM, Nml appearance. negative: Calf tenderness Neurologic/Psychiatric: positive: Oriented x3, Motor nml, Sensation nml, Mood/affect nml. negative: Weakness, Sensory loss, Facial droop, Slurred/abnml speech, Depressed mood/affect - LABS Result Diagrams: 05/17/20 06:25 05/17/20 06:25 - FOLLOW UP Follow Up: Your C.diff test is negative, you are prescribed imodium to control your diarrhea as needed, advise keep you have hydration. Your UA analysis and US of kidney and urinary track were unremarkable, negative for kidney stone. Keep hydration as well, followup with your PCP continue monitor potassium level in one. You may followup with your PCP in one week. Should your symptoms return or worsen, you may present ER or call 911 for help. week. - TIME SPENT Time Spent in Discharge (Minutes): 30
[2020-05-17 11:09] VITALS: BP 121/78
[2020-05-17] MEDS ORDERED: LOPERAMIDE 2 MG CAPSULE PO PRN (11:46)
== END 2020-05-17 12:52 | disposition home or self-care (01) | DRG 641 ==
LOC: EDUNIT# → ED 23:15 → MS2 05-16 04:15 → OBSVTOIN 05-16 14:18
PROVIDERS: ADMIT Nurse Practitioner Gerontology; ATTEND Nurse Practitioner Gerontology
DX: E87.6 Hypokalemia (principal); N30.01 Acute cystitis with hematuria; R19.7 Diarrhea, unspecified; I10 Essential (primary) hypertension; Y92.9 Unspecified place or not applicable; M25.551 Pain in right hip; K21.9 Gastro-esophageal reflux disease without esophagitis; G40.909 Epilepsy, unspecified, not intractable, without status epilepticus; G62.9 Polyneuropathy, unspecified; Z99.3 Dependence on wheelchair; Z66 Do not resuscitate; R11.2 Nausea with vomiting, unspecified; S09.90XA Unspecified injury of head, initial encounter; W06.XXXA Fall from bed, initial encounter; Z86.73 Personal history of transient ischemic attack (TIA), and cerebral infarction without residual deficits
CPT/HCPCS: 36415; 36556; 70450; 71045; 72125; 73502; 76770; 80048; 80053; 80177; 80185; 81001; 83690; 83735; 85025; 87493; 96365; 96366; 96368; 96375; 96376; 99284; 99285; A9270; G0378; J7120; Q0162; 80306; 81003; 87086

== ENCOUNTER 2020-06-12 12:08 | Outpatient (CLI) | payer MEDICARE, MEDICAID | END 2020-06-12 12:09 | disposition critical access hospital (66) | LOC: EMS 12:08 | PROVIDERS: ATTEND Surgery | DX: M25.552 Pain in left hip (principal); W06.XXXA Fall from bed, initial encounter; Y92.003 Bedroom of unspecified non-institutional (private) residence as the place of occurrence of the external cause | CPT/HCPCS: A0425; A0429 ==

== ENCOUNTER 2020-06-12 12:23 | Observation (INO) | payer MEDICARE, MEDICAID ==
--- NOTE | 2020-06-12 12:28 | ED Physician Documentation ---
PD HPI SEIZURE - Stated complaint Stated Complaint: SEIZURE/GLF - History obtained from History obtained from: Patient, EMS - History of Present Illness Timing - onset: Today (Patient reports awakening on the ground this morning. She presumes she had a seizure and has had episodes like this in the past. She feels she did land onto her left hip as it was hurting after the seizure. She denies any head injury. She has had 3 seizures this month which is more than common) Witnessed: Unwitnessed Number of seizures: Single Description of seizure activity: Generalized. No: Incontinent Injury during seizure: Other (some pain in left hip (chronic pain there and increased over baseline).) Associated symptoms: Other (some general weakness the past few days.). No: Chest pain, Dyspnea, Nausea / vomiting Contributing factors: Other (She states she has been taking her Dilantin 400 mg at night as usual. She sees Dr. Elliott for neurology. She also takes Keppra for her seizures). No: Off meds, Out of meds, EtOH withdrawal, Fever Similar symptoms before: Diagnosis (She does have a history of seizure disorder and states the have occurred more commonly when her electrolytes are off. History of renal tubular disorder and sees Dr. WEN Patel and is on spironolactone as well as potassium supplements that she has been taking) Recently seen: Emergency Dept, Admitted (Hypokalemia and seizure in April and was in the hospital for a day for electrolyte replacements.) Review of Systems Constitutional: denies: Fever, Chills Nose: denies: Rhinorrhea / runny nose, Congestion Throat: denies: Sore throat Cardiac: denies: Chest pain / pressure, Palpitations Respiratory: denies: Dyspnea, Cough GI: reports: Nausea. denies: Abdominal Pain, Vomiting, Diarrhea, Bloody / black stool : denies: Dysuria Skin: denies: Rash, Lesions Neurologic: reports: Generalized weakness, Seizure. 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: Ovarian cancer : Incontinence, Chronic bladder infection, Renal insuffiency, Nocturia, Frequency, Kidney stones, Other (renal tubule disorder with potassium loss chronically) HEENT: Chronic sinusitis Psych: Depression Musculoskeletal: Osteoarthritis, Osteoporosis, Fatigue, Chronic back pain, Other Derm: Psoriasis - Past Surgical History Past Surgical History: Yes General: Appendectomy Ortho: Hip replacement, Spine surgery /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 LABORER: 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, Oophrectomy - Present Medications Home Medications: Ambulatory Orders Medication Instructions Recorded Confirmed Omeprazole [PriLOSEC] 20 mg PO BID 02/09/18 05/16/20 Pregabalin [Lyrica] 100 mg PO TID 02/09/18 05/16/20 levETIRAcetam [Keppra] 1,000 mg PO BID 02/09/18 05/16/20 Phenytoin Sodium Extended 500 mg PO QPM 03/16/18 05/16/20 Cetirizine [ZyrTEC] 10 mg PO DAILY 09/06/18 05/16/20 Melatonin 10 mg PO QPM PRN 09/06/18 05/16/20 Magnesium Oxide [Magnesium] 500 mg PO DAILY 09/14/18 05/16/20 diphenhydrAMINE [Benadryl] 25 mg PO PRN PRN 09/14/18 05/16/20 methocarbamoL [Methocarbamol] 750 mg PO QID 09/20/18 05/16/20 Potassium Citrate [Potassium 40 meq PO TIDWM 04/09/19 05/16/20 Citrate ER] Spironolactone 75 mg PO BID 04/09/19 05/16/20 carvediloL [Carvedilol] 12.5 mg PO Q12H #60 tablet 04/11/19 05/16/20 Amlodipine Besylate 10 mg PO DAILY 10/31/19 05/16/20 Butalb/Acetaminophen/Caffeine 1 cap PO DAILY PRN 02/20/20 05/16/20 [Wfwzhy-Rytyldcd-Nuwr 50-300-40] Lasmiditan Succinate [Reyvow] 50 mg PO DAILY PRN 05/16/20 Ondansetron [Ondansetron Odt] 8 mg PO TID 05/16/20 05/16/20 Prochlorperazine Maleate 10 mg PO QID PRN 05/16/20 05/16/20 [Compazine] Cholecalciferol (Vitamin D3) 25 mcg PO DAILY #30 capsule 05/17/20 [Vitamin D3] Loperamide [Imodium] 2 mg PO QID PRN #15 capsule 05/17/20 - Allergies Allergies/Adverse Reactions: Allergies Allergy/AdvReac Type Severity Reaction Status Date / Time Penicillins Allergy Severe Respiratory Verified 06/12/20 12:31 bacitracin Allergy Mild Hives Verified 06/12/20 12:31 [From Neosporin ([id number])] bacitracin zinc * Allergy Mild Itching Verified 06/12/20 12:31 [From Neosporin ([id number])] neomycin sulfate * Allergy Mild Itching Verified 06/12/20 12:31 [From Neosporin ([id number])] lamotrigine Allergy Itching Verified 06/12/20 12:31 venom-honey bee Allergy Unknown Verified 06/12/20 12:31 [bee venom (honey bee)] ciprofloxacin AdvReac Emesis Verified 06/12/20 12:31 - Social History Does the pt smoke?: No Smoking Status: Never smoker Does the pt drink ETOH?: No Does the pt have substance abuse?: No - Immunizations Immunizations are current?: Yes - POLST Patient has POLST: Yes POLST Status: DNR PD ED PE NORMAL - Vitals Vital signs reviewed: Yes - General General: Alert and oriented X 3, No acute distress, Well developed/nourished - HEENT HEENT: Atraumatic, Moist mucous membranes, Pharynx benign - Neck Neck: Supple, no meningeal sign, No adenopathy - Cardiac Cardiac: RRR, No murmur - Respiratory Respiratory: Clear bilaterally - Abdomen Abdomen: Soft, Non tender - Back Back: No CVA TTP - Derm Derm: Normal color, Warm and dry - Extremities Extremities: No edema, No calf tenderness / cord, Other (Left hip tender to palpation and rotation without any deformity. No skin sores seen. Prior scars noted. ) - Neuro Neuro: Alert and oriented X 3, No motor deficit, Normal speech Results - Vitals Vitals: Vital Signs - 24 hr 06/12/20 06/12/20 12:26 14:35 Temperature 36.9 C Heart Rate 99 83 Respiratory 18 17 Rate Blood Pressure 185/101 H 190/104 H O2 Saturation 100 98 Oxygen O2 Source Room air - Labs Labs: Laboratory Tests 06/12/20 06/12/20 12:57 12:57 WBC 8.3 RBC 4.59 Hgb 13.3 Hct 39.4 MCV 85.8 MCH 29.0 MCHC 33.8 RDW 13.6 Plt Count 477 H MPV 9.3 Neut # (Auto) 4.4 Lymph # (Auto) 2.6 Oliver # (Auto) 1.0 Eos # (Auto) 0.2 Baso # (Auto) 0.0 Absolute Nucleated RBC 0.00 Nucleated RBC % 0.0 Sodium 139 Potassium 2.3 L* Chloride 105 Carbon Dioxide 19 L Anion Gap 15.0 H BUN 8 Creatinine 0.5 Estimated GFR (MDRD) 128 Glucose 116 H Calcium 9.5 Magnesium 2.2 Total Bilirubin 0.7 AST 16 ALT 16 Alkaline Phosphatase 129 H Total Protein 7.7 Albumin 4.7 Globulin 3.0 Albumin/Globulin Ratio 1.6 Lipase 38 Phenytoin < 2.5 - Rads (name of study) left hip Radiology: Prelim report reviewed (Hip implant/replacement is visible and intact no any dislocation or fractures.), See rad report PD MEDICAL DECISION MAKING - ED course Complexity details: reviewed results, re-evaluated patient (trying PO doses of potassium, and she takes PO a lot at home already. May need IV doses/OBS treatment to get therapeutic. ), considered differential (The patient does run chronic daily low potassium due to a renal tubular disorder. She sees Dr. Patel. Initial finding of low Dilantin and low potassium and patient was initially wanting to be treated outpatient. However she did change to allowing in- hospital treatment.), d/w patient Departure - Departure Disposition: ED Place in Observation Clinical Impression: General weakness, Left hip pain, Hypokalemia, Generalized seizure, Recurrent seizures, Subtherapeutic serum dilantin level Condition: Stable Record reviewed to determine appropriate education?: Yes
[2020-06-12] MEDS ORDERED: HYDROmorphone 2 MG/ML VIAL IM STA ×2 (12:48→14:42)
[2020-06-12] MEDS ORDERED: KETOROLAC 30 MG/ML VIAL IM STA (12:49)
[2020-06-12 13:03] LABS: BASOPHILS % (AUTO) 0.4 %; EOSINOPHILS # (AUTO) 0.2 10^3/uL (0.0-0.7); EOSINOPHILS % (AUTO) 2.4 %; HGB - HEMOGLOBIN 13.3 g/dL (12.0-16.0); LYMPHOCYTES # (AUTO) 2.6 10^3/uL (1.5-3.5); LYMPHOCYTES % (AUTO) 31.6 %; MEAN CORPUSCULAR HGB CONC 33.8 g/dL (32.0-36.0); MEAN CORPUSCULAR VOLUME 85.8 fL (81.0-99.0); MEAN PLATELET VOLUME 9.3 fL (7.9-10.8); NEUTROPHILS # (AUTO) 4.4 10^3/uL (1.5-6.6); NEUTROPHILS % (AUTO) 53.2 %; PLT - PLATELET COUNT 477 10^3/uL (130-450); RED BLOOD COUNT 4.59 10^6/uL (4.20-5.40); RED CELL DISTRIBUTION WIDTH 13.6 % (12.0-15.0); WHITE BLOOD COUNT 8.3 x10^3/uL (4.8-10.8)
[2020-06-12 13:28] LABS: ALBUMIN 4.7 g/dL (3.2-5.5); ALBUMIN/GLOBULIN RATIO 1.6 (1.0-2.2); ALKALINE PHOSPHATASE 129 IU/L (42-121); ALT ALANINE AMINOTRANSFERASE 16 IU/L (10-60); AST ASPARTATE AMINOTRANSFERASE 16 IU/L (10-42); BILIRUBIN,TOTAL 0.7 mg/dL (0.2-1.0); BUN - BLOOD UREA NITROGEN 8 mg/dL (6-20); CALCIUM 9.5 mg/dL (8.5-10.3); CARBON DIOXIDE - CO2 19 mmol/L (21-32); CHLORIDE 105 mmol/L (101-111); CREATININE 0.5 mg/dL (0.4-1.0); GLUCOSE 116 mg/dL (70-100); LIPASE 38 U/L (22-51); MAGNESIUM 2.2 mg/dL (1.7-2.8); SODIUM 139 mmol/L (135-145); TOTAL PROTEIN 7.7 g/dL (6.7-8.2)
[2020-06-12 13:29] LABS: PHENYTOIN (DILANTIN) < 2.5 ug/mL
--- NOTE | 2020-06-12 13:36 | XRAY Report ---
PROCEDURE: Hip w/Pelvis 2-3V LT INDICATIONS: post seizure hip pain; s/p implant TECHNIQUE: AP pelvis with lateral view(s) of the bilateral hip(s). COMPARISON: 05/16/2020, 04/11/2019 and 08/20/2019. FINDINGS: Bones: No acute fractures or dislocations. Stable postsurgical changes from prior left hip arthropl asty. Cemented acetabular component is intact and unchanged. There is persistent lucency between the prosthesis and the bone interface. Cerclage wires appear intact. No evidence for hardware failure. St able appearance of fracture nonunion of the greater and lesser trochanteric fracture fragments. Surgi zaira clips also project over the sacrum as before. Pelvic ring appears intact. No suspicious bony les ions. Soft tissues: The visualized bowel gas pattern is normal. No suspicious soft tissue calcifications. IMPRESSION: Status post left total hip arthroplasty with persistent lucency seen between the surgical fixation lee rdware and adjacent bone consistent with hardware loosening. No evidence for acute hardware complicat ion or acute osseous abnormalities. Reviewed by: Abraham Macias MD on 06/12/2020 1:34 PM PDT Approved by: Abraham Macias MD on 06/12/2020 1:34 PM PDT Station ID: [id number]
[2020-06-12] MEDS ORDERED: POTASSIUM CHLORIDE 20 MEQ/15 ML UDC PO STA ×2 (13:40→14:37)
[2020-06-12] MEDS ORDERED: PHENYTOIN ER 100 MG CAPSULE PO STA (13:41)
[2020-06-12] MEDS ORDERED: PHENYTOIN 100 MG/2 ML VIAL IVP STA (15:27)
[2020-06-12] MEDS ORDERED: POTASSIUM CHLOR 10 MEQ/100 ML 10 MEQ/100 ML BAG IV STA (15:27)
[2020-06-12] MEDS ORDERED: PHENYTOIN IV STA (15:38)
[2020-06-12] MEDS ORDERED: SODIUM CHLORIDE 0.9% IV STA (15:38)
[2020-06-12] MEDS ORDERED: SODIUM CHLORIDE FLUSH 0.9% 10 ML SYRINGE IVP PRN (15:55)
[2020-06-12] MEDS ORDERED: ACETAMINOPHEN 325 MG TABLET PO PRN (15:55)
[2020-06-12] MEDS ORDERED: ONDANSETRON 4 MG/2 ML VIAL IVP PRN (15:55)
[2020-06-12] MEDS ORDERED: LORazepam 2 MG/ML VIAL IVP PRN (15:58)
[2020-06-12] MEDS ORDERED: POTASSIUM CHLORIDE 20 MEQ TABLET PO STA (16:08)
[2020-06-12] MEDS ORDERED: LOPERAMIDE 2 MG CAPSULE PO PRN (17:36)
[2020-06-12] MEDS ORDERED: BUTALB/ACETAM/CAFF 50/325/40MG TABLET PO PRN (17:37)
--- NOTE | 2020-06-12 17:39 | HISTORY & PHYSICAL EXAMINATION ---
Chief Complaint - Chief Complaint Chief Complaint: seizure History of Present Illness - Admitted From Admitted From:: ER - History Obtained From Records Reviewed: [facility] History obtained from: pt Exam Limitations: no - History of Present Illness HPI Comment/Other: The patient is a very unfortunate 51-year-old female with an extensive past medical history including seizure disorder, hypertension, history of ovarian cancer, status post hysterectomy and bilateral oophorectomy in 1995 followed by chemotherapy and radiation, left hip replacement with complication of multiple infections, including infected hardware requiring removal and two further hip replacements with osteomyelitis and long-term antibiotics now off antibiotics and non weight bearing on left, hypothyroidism, chronic pain disorder, psoriasis, history of breast syndrome, history of occipital lobe masses for which she follows with neurology at [facility], RTA kidney disease who followup with [employer] consultant Dr. Simms, who presented to the emergency department with a chief complaint of Seizure. Patient reported she did Have 2 time seizure in the home. She reported she did take Dilantin and Keppra in the home as scheduled dosage and times. laboratory tests in ER show her Dilantin was less than 2.5. Patient report she has issue, her potassium level is very low even she take potassium supplement and spironolactone twice daily. Laboratory testing in the ER showed she had a potassium of 2.3 on today. She denies headache, focal neuro deficit. She also denies chest pain, Palpitation, fever, shortness of breathing, abdominal pain. She did report she had a chronic diarrhea. 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: Ovarian cancer : reports: Incontinence, Chronic bladder infection, Renal insuffiency, Nocturia, Frequency, Kidney stones, Other (renal tubule disorder with potassium loss chronically) HEENT: reports: Chronic sinusitis Psych: reports: Depression Musculoskeletal: reports: Osteoarthritis, Osteoporosis, Fatigue, Chronic back pain, Other Derm: reports: Psoriasis MRSA Hx?: Yes - Past Surgical History General: reports: Appendectomy Ortho: reports: Hip replacement, Spine surgery /TUBE REPAIRER: reports: 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, Oophrectomy - Family & Social History Family History: Mother: Alive and Well, Father: , CAD Family History Comment/Other: Mother is alive and well, age 76, with a history of cervical cancer, CABG x3. Father from heart disease. 1 brother who is alive and well. Social History Notes: The patient has one daughter and her first when her daughter was 2 years old. The patient is legally from her 2nd . She is living with her daughter and her daughter's boyfriend in [place]. There are 2 dogs in the home, and the patient has one cat named Andrew. She no longer drives and is wheelchair bound at baseline. 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 She was using a walker and and has been nonweightbearing on the left side since her surgeries. She can perform all of her daily ADLs, but very little house work. She denies ETOH, tobacco, or illicit drug use. She wishes to be a DNR. - Substance History Use: Uses substance without health or social issues: NONE - POLST Patient has POLST: Yes POLST Status: DNR Meds/Allgy - Home Medications Home Medications: Ambulatory Orders Medication Instructions Recorded Confirmed Omeprazole [PriLOSEC] 20 mg PO BID 02/09/18 05/16/20 Pregabalin [Lyrica] 100 mg PO TID 02/09/18 05/16/20 levETIRAcetam [Keppra] 1,000 mg PO BID 02/09/18 05/16/20 Phenytoin Sodium Extended 500 mg PO QPM 03/16/18 05/16/20 Cetirizine [ZyrTEC] 10 mg PO DAILY 09/06/18 05/16/20 Melatonin 10 mg PO QPM PRN 09/06/18 05/16/20 Magnesium Oxide [Magnesium] 500 mg PO DAILY 09/14/18 05/16/20 diphenhydrAMINE [Benadryl] 25 mg PO PRN PRN 09/14/18 05/16/20 methocarbamoL [Methocarbamol] 750 mg PO QID 09/20/18 05/16/20 Potassium Citrate [Potassium 40 meq PO TIDWM 04/09/19 05/16/20 Citrate ER] Spironolactone 75 mg PO BID 04/09/19 05/16/20 carvediloL [Carvedilol] 12.5 mg PO Q12H #60 tablet 04/11/19 05/16/20 Amlodipine Besylate 10 mg PO DAILY 10/31/19 05/16/20 Butalb/Acetaminophen/Caffeine 1 cap PO DAILY PRN 02/20/20 05/16/20 [Twjbfi-Czdhziol-Pdnm 50-300-40] Lasmiditan Succinate [Reyvow] 50 mg PO DAILY PRN 05/16/20 Ondansetron [Ondansetron Odt] 8 mg PO TID 05/16/20 05/16/20 Prochlorperazine Maleate 10 mg PO QID PRN 05/16/20 05/16/20 [Compazine] Cholecalciferol (Vitamin D3) 25 mcg PO DAILY #30 capsule 05/17/20 [Vitamin D3] Loperamide [Imodium] 2 mg PO QID PRN #15 capsule 05/17/20 - Allergies Allergies/Adverse Reactions: Allergies Allergy/AdvReac Type Severity Reaction Status Date / Time Penicillins Allergy Severe Respiratory Verified 06/12/20 12:31 bacitracin Allergy Mild Hives Verified 06/12/20 12:31 [From Neosporin ([id number])] bacitracin zinc * Allergy Mild Itching Verified 06/12/20 12:31 [From Neosporin ([id number])] neomycin sulfate * Allergy Mild Itching Verified 06/12/20 12:31 [From Neosporin ([id number])] lamotrigine Allergy Itching Verified 06/12/20 12:31 venom-honey bee Allergy Unknown Verified 06/12/20 12:31 [bee venom (honey bee)] ciprofloxacin AdvReac Emesis Verified 06/12/20 12:31 Review of Systems - Constitutional Constitutional: denies: Fatigue, Fever, Chills, Poor appetite, Diaphoresis - Eyes Eyes: denies: Pain, Field loss, Vision loss - Ears, Nose & Throat Ears, Nose & Throat: denies: Ear pain, Nosebleeds, Mouth lesions, Bleeding gums - Cardiovascular Cariovascular: denies: Irregular heart rate, Palpitations, Chest pain, Edema, Lightheadedness, Syncope, Exertional dyspnea, Decr. exercise tolerance - Respiratory Respiratory: denies: Cough, Sputum production, Wheezing, Snoring, Hemoptysis, SOB at rest, SOB with exertion - Gastrointestinal Gastrointestinal: reports: Diarrhea. denies: Abdominal pain, Constipation, Rectal bleeding, Black stools, Bloody stools, Nausea, Vomiting - Genitourinary Genitourinary: denies: Dysuria, Hematuria - Musculoskeletal Musculoskeletal: denies: Muscle pain, Muscle aches, Limited range of motion, Mus cholo weakness - Integumentary Integumentary: denies: Rash, Lesions, Dryness, Lumps - Neurological Neurological: reports: Seizures. denies: General weakness, Focal weakness, Headache, Dizziness, Numbness, Memory problems, Abnormal gait, Incoordination, Slurred speech - Psychiatric Psychiatric: denies: Suicidal, Delusions, Hallucinations - Endocrine Endocrine: denies: Polyuria - Hematologic/Lymphatic Hematologic/Lymphatic: denies: Anemia, Bleeding tendencies Exam - Vital Signs Vital Signs: Vital Signs x48h Temp Pulse Resp BP Pulse Ox 06/12/20 16:47 36.8 C 72 19 155/60 H 100 06/12/20 16:00 37.1 C 69 21 157/60 H 94 06/12/20 14:35 83 17 190/104 H 98 06/12/20 12:26 36.9 C 99 18 185/101 H 100 - Physical Exam General Appearance: positive: No acute distress, Alert. negative: Lethargic Eyes Bilateral: positive: Normal inspection, PERRL, No lid inflammation ENT: positive: ENT inspection nml, No signs of dehydration. negative: Purulent nasal drainage Neck: positive: Nml inspection, Thyroid nml, Trachea midline. negative: Thyromegaly, Tracheal deviation Respiratory: positive: Chest non-tender, No respiratory distress, Breath sounds nml. negative: Wheezes, Rales, Rhonchi Cardiovascular: positive: Regular rate & rhythm, No murmur. negative: Irregularly irregular, Tachycardia, Bradycardia, Systolic murmur, Diastolic murmur Peripheral Pulses: positive: 2+ Abdomen: positive: Non-tender, Nml bowel sounds, No distention. negative: Tenderness, Guarding, Rebound Back: positive: Nml inspection Skin: positive: Color nml, No rash, Warm, Dry. negative: Cyanosis, Diaphoresis, Pallor Extremities: positive: Non-tender, Nml appearance. negative: Calf tenderness Neurologic/Psychiatric: positive: Oriented x3, Sensation nml, Mood/affect nml. negative: Weakness, Sensory loss, Facial droop, Slurred/abnml speech, Depressed mood/affect Conclusion/Plan - Problem List (1) Seizure Conclusion/Plan: Patient had twice seizure today, patient's Dilantin in serum is less than 2.5, patient reported he did take the Dilantin with scheduling at home. ER already give patient oral Dilantin and the intravenous Dilantin. We will resume home p.o. Dilaudid after pharmacy confirm. Will may increase her Dilantin dosage when patient is discharged, Follow-up with neurologist, and may have EEG study as out-pt (2) Hypokalemia due to excessive renal loss of potassium Conclusion/Plan: Patient had a chronic kidney disease with constant loss of potassium. pt is Following up with her [employer] tre[employer] consultant Dr. Simms. Patient had 2.3 potassium today, Patient denies chest pain, palpitation. we will replace with potassium, We will resume home spironolactone as confirmed by pharmacy. will continue to monitor, advise the patient follow-up with her [employer] tre[employer] consultant as soon as possible. (3) HTN (hypertension) Conclusion/Plan: Stable, we will resume patient home blood pressure medicine (4) Chronic pain Conclusion/Plan: Patient has history of chronic pain medication, will resume patient pain medication after confirmed by pharmacy. - Lab Results Fish Bones: 06/12/20 12:57 06/12/20 12:57 Core Measures - Anticipated LOS I expect patient to be DC'd or transferred within 96 hours.: Yes - DVT/VTE - Prophylaxis VTE/DVT Device ordered at admit?: Yes VTE/DVT Prophylaxis med ordered at admit?: Yes
[2020-06-12] MEDS: SODIUM CHLORIDE 0.9% 1,000 ML IV SCH (17:47)
[2020-06-12] MEDS: SODIUM CHLORIDE FLUSH 0.9% 10 ML SYRINGE IVP SCH ×2 (17:49→23:35)
[2020-06-12] MEDS: POTASSIUM CHLOR 10 MEQ/100 ML 10 MEQ/100 ML BAG IV SCH ×4 (17:49→22:29)
[2020-06-12] MEDS: oxyCODONE 5 MG TABLET PO PRN (18:03)
[2020-06-12] MEDS: MAGNESIUM OXIDE 400 MG TABLET PO SCH (18:04)
[2020-06-12] MEDS: carvediloL 12.5 MG TABLET PO SCH (21:19)
[2020-06-12] MEDS: FAMOTIDINE 20 MG TABLET PO SCH (21:19)
[2020-06-12] MEDS: PREGABALIN 100 MG CAPSULE PO SCH (21:19)
[2020-06-12] MEDS: PHENYTOIN ER 100 MG CAPSULE PO SCH (21:19)
[2020-06-12] MEDS: levETIRAcetam 500 MG/5 ML UDC PO SCH (21:19)
[2020-06-12] MEDS: MORPHINE 2 MG/ML CARPUJECT IVP PRN (22:29)
[2020-06-12] MEDS: SPIRONOLACTONE 25 MG TABLET PO SCH (22:29)
[2020-06-13] MEDS: oxyCODONE 5 MG TABLET PO PRN ×3 (05:01→13:05)
[2020-06-13] MEDS: PHENYTOIN ER 100 MG CAPSULE PO SCH (05:02)
[2020-06-13] MEDS: PREGABALIN 100 MG CAPSULE PO SCH ×2 (05:02→15:05)
[2020-06-13 06:00] LABS: BASOPHILS # (AUTO) 0.1 10^3/uL (0.0-0.1); BASOPHILS % (AUTO) 0.8 %; EOSINOPHILS # (AUTO) 0.3 10^3/uL (0.0-0.7); EOSINOPHILS % (AUTO) 5.2 %; HGB - HEMOGLOBIN 11.4 g/dL (12.0-16.0); LYMPHOCYTES # (AUTO) 2.5 10^3/uL (1.5-3.5); LYMPHOCYTES % (AUTO) 40.3 %; MEAN CORPUSCULAR HEMOGLOBIN 29.3 pg (27.0-31.0); MEAN CORPUSCULAR HGB CONC 32.1 g/dL (32.0-36.0); MEAN CORPUSCULAR VOLUME 91.3 fL (81.0-99.0); MEAN PLATELET VOLUME 9.6 fL (7.9-10.8); MONOCYTES # (AUTO) 0.7 10^3/uL (0.0-1.0); MONOCYTES % (AUTO) 11.2 %; NEUTROPHILS # (AUTO) 2.6 10^3/uL (1.5-6.6); NEUTROPHILS % (AUTO) 42.2 %; PLT - PLATELET COUNT 409 10^3/uL (130-450); RED BLOOD COUNT 3.89 10^6/uL (4.20-5.40); RED CELL DISTRIBUTION WIDTH 14.4 % (12.0-15.0); WHITE BLOOD COUNT 6.2 x10^3/uL (4.8-10.8)
[2020-06-13 06:16] LABS: CALCIUM 8.8 mg/dL (8.5-10.3); CREATININE 0.6 mg/dL (0.4-1.0); MAGNESIUM 2.1 mg/dL (1.7-2.8); PHENYTOIN (DILANTIN) 4.9 ug/mL; PHOSPHORUS 2.6 mg/dL (2.5-4.6)
[2020-06-13] MEDS: MORPHINE 2 MG/ML CARPUJECT IVP PRN ×6 (06:34→16:26)
[2020-06-13] MEDS: SODIUM CHLORIDE 0.9% 1,000 ML IV SCH (07:01)
[2020-06-13] MEDS ORDERED: POTASSIUM CHLORIDE 20 MEQ TABLET PO ONE (07:49)
[2020-06-13] MEDS ORDERED: PHENYTOIN INJ 500 MG in SODIUM CHLORIDE 0.9% 100ML 100 ML IV ONE (07:51)
[2020-06-13] MEDS: levETIRAcetam 500 MG/5 ML UDC PO SCH (08:35)
[2020-06-13] MEDS: SPIRONOLACTONE 25 MG TABLET PO SCH (08:36)
[2020-06-13] MEDS: carvediloL 12.5 MG TABLET PO SCH (08:37)
[2020-06-13] MEDS: MAGNESIUM OXIDE 400 MG TABLET PO SCH (08:37)
[2020-06-13] MEDS: FAMOTIDINE 20 MG TABLET PO SCH (08:37)
[2020-06-13] MEDS ORDERED: ENOXAPARIN 40 MG/0.4 ML SYRINGE SUBQ SCH (09:00)
[2020-06-13] MEDS: SODIUM CHLORIDE FLUSH 0.9% 10 ML SYRINGE IVP SCH ×2 (09:33→16:26)
--- NOTE | 2020-06-13 09:49 | PHARMACY PROGRESS NOTE ---
- Best Possible Medication History Admit Date and Time: 06/12/20 1558 Processed by: Pharmacy Medication History completed: Yes Patient Interview: Pt interview ONLY source As the person ultimately responsible for medication therapy, providers are able to order a medication from an existing home medication list in [facility] via the "Reconcile Routine" prior to Confirmation of that medication by emotional support teacher. Such practice is discouraged except when the physician, in their clinical judgment, deems that a medical need exists for a medication without regard to previous use.
[2020-06-13] MEDS ORDERED: PHENYTOIN ER 100 MG CAPSULE PO SCH (12:00)
[2020-06-13] MEDS ORDERED: POTASSIUM CITRATE 5 MEQ TABLET PO SCH (12:00)
--- NOTE | 2020-06-13 15:33 | Discharge Plan ---
Discharge Plan Problem Reviewed?: Yes Disposition: Home, Self Care Condition: Stable Diet: Regular Activity Restrictions: Activity as Tolerated Shower Restrictions: No (fall precaution) Instruction Topics: Epilepsy Meds, Epilepsy Living Well, Epilepsy Safety During Seizure, Hypokalemia Dc Health Concerns: seizure and hypokalemia Plan of Treatment: you have no seizure in hospital, your Dilantin is nearly to therapeutic level. You reached to your neurologist And will see your neurologist. You would like your neurologist to adjust your medication to control your seizure. Your potassium level is normal now. You will make appointment to see your potato chip frier, and You would like your potato chip frier to adjust your medication for you. Advised you follow up with your medication regimen. Care Goals: stabilization and improvement of your medical condition. Assessment: Discussed the care plan with you, your understand and agree Additional Instructions or Follow Up instructions: You may follow-up with your PCP in one week, to check potassium level and Dilantin level, you may follow-up with your potato chip frier and neurologist as outpatient. Should your symptoms return or worsen, you may present to ER or call 911 for help No Smoking: If you smoke, Please STOP! Call for help. Follow-up with: EBONY GU DO [Primary Care Provider] -
--- NOTE | 2020-06-13 15:53 | DISCHARGE SUMMARY ---
Discharge Summary Admit Date: 08/12/20 Discharge Date: 06/13/20 Discharging Provider: Artie Flores Primary Care Provider: Leo Morales Condition at Discharge: Stable Discharge Disposition: 01 Home, Self Care Discharge Facility Name: home - DIAGNOSES Discharge Diagnoses with Status of Each Condition: (1) Seizure resolved. pt has no seizure in hospital. her Dilantin level reached to 9.3. Patient clearly stated she took 400mg Dilantin per day but actually her home Dilaintin medication is 500mg/day. Patient declined any changes to her medication, she says she already called her neurologist and she will see the neurologist, and she will let her neurologist adjust her meds. Advised patient to take her medication as scheduled. (2) Hypokalemia due to excessive renal loss of potassium resolved. Her potassium is 4.0. She declined any changes to meds, she will let her packaging designer adjust her medication as needed. Patient reported she take 50 mg of spironolactone in the morning, 25 mg spironolactone in the evening but in her home medication she had scheduled as twice daily 75 mg. Advised patient to take her medication as scheduled. (3) HTN (hypertension) Conclusion/Plan: Stable, we will resume patient home blood pressure medicine (4) Chronic pain Conclusion/Plan: Patient has history of chronic pain medication, will resume patient pain medication after confirmed by pharmacy. (5)Medical non-compliance It seems to me patient adjusted her home medication by her self as above. Strongly advised patient for medical compliance as the scheduled. - HPI History of Present Illness: The patient is a very unfortunate 51-year-old female with an extensive past medical history including seizure disorder, hypertension, history of ovarian cancer, status post hysterectomy and bilateral oophorectomy in 1995 followed by chemotherapy and radiation, left hip replacement with complication of multiple infections, including infected hardware requiring removal and two further hip replacements with osteomyelitis and long-term antibiotics now off antibiotics and non weight bearing on left, hypothyroidism, chronic pain disorder, psoriasis, history of breast syndrome, history of occipital lobe masses for which she follows with neurology at [facility], RTA kidney disease who followup with packaging designer Dr. Simms, who presented to the emergency departm ent with a chief complaint of Seizure. Patient reported she did Have 2 time seizure in the home. She reported she did take Dilantin and Keppra in the home as scheduled dosage and times. laboratory tests in ER show her Dilantin was less than 2.5. Patient report she has issue, her potassium level is very low even she take potassium supplement and spironolactone twice daily. Laboratory testing in the ER showed she had a potassium of 2.3 on today. She denies headache, focal neuro deficit. She also denies chest pain, Palpitation, fever, shortness of breathing, abdominal pain. She did report she had a chronic diarrhea. Discussed the care goal with the patient, patient stated she is DNR - HOSPITAL COURSE Hospital Course: Patient was admitted for seizure. Patient was also found to have significant hypokalemia as well. Patient's Dilantin serum concentration is less than 2.5. Patient was given intravenous Dilantin and p.o. Dilantin then patient's Dilantin level is reached to 9.3. Patient has no seizure in the hospital. Patient was given p.o. potassium and the intravenous potassium then her potassium level reached to 4.0. Patient declined any home medication change, she will let her packaging designer and neurologist adjust medication as needed. Patient already called her packaging designer and neurologist, and made appointment to see them.Patient was found to have medical noncompliance, patient was strongly advised for medical compliant as scheduled. Advise pt follow-up with her PCP in one week, to check potassium level and Dilantin level. Patient was discharge at hemodynamic stable condition - ALLERGIES Allergies/Adverse Reactions: Allergies Allergy/AdvReac Type Severity Reaction Status Date / Time Penicillins Allergy Severe Respiratory Verified 06/12/20 12:31 bacitracin Allergy Mild Hives Verified 06/12/20 12:31 [From Neosporin ([id number])] bacitracin zinc * Allergy Mild Itching Verified 06/12/20 12:31 [From Neosporin ([id number])] neomycin sulfate * Allergy Mild Itching Verified 06/12/20 12:31 [From Neosporin ([id number])] lamotrigine Allergy Itching Verified 06/12/20 12:31 venom-honey bee Allergy Unknown Verified 06/12/20 12:31 [bee venom (honey bee)] ciprofloxacin AdvReac Emesis Verified 06/12/20 12:31 - MEDICATIONS Home Medications: Ambulatory Orders Medication Instructions Recorded Confirmed Omeprazole [PriLOSEC] 20 mg PO BID 02/09/18 06/13/20 Pregabalin [Lyrica] 100 mg PO TID 02/09/18 06/13/20 Phenytoin Sodium Extended 500 mg PO QPM 03/16/18 06/13/20 Cetirizine [ZyrTEC] 10 mg PO DAILY 09/06/18 06/13/20 Melatonin 10 mg PO QPM PRN 09/06/18 06/13/20 Magnesium Oxide [Magnesium] 500 mg PO DAILY 09/14/18 06/13/20 diphenhydrAMINE [Benadryl] 25 mg PO DAILY PRN 09/14/18 06/13/20 methocarbamoL [Methocarbamol] 750 mg PO QID 09/20/18 06/13/20 Potassium Citrate [Potassium 40 meq PO TIDWM 04/09/19 06/13/20 Citrate ER] Spironolactone 75 mg PO BID 04/09/19 06/13/20 carvediloL [Carvedilol] 12.5 mg PO Q12H #60 tablet 04/11/19 06/13/20 Amlodipine Besylate 10 mg PO DAILY 10/31/19 06/13/20 Butalb/Acetaminophen/Caffeine 1 cap PO DAILY PRN 02/20/20 06/13/20 [Pqnxpi-Bcdkmtkx-Eger 50-300-40] Lasmiditan Succinate [Reyvow] 50 mg PO DAILY PRN 05/16/20 06/13/20 Ondansetron [Ondansetron Odt] 8 mg PO TID 05/16/20 06/13/20 Prochlorperazine Maleate 10 mg PO QID PRN 05/16/20 06/13/20 [Compazine] Cholecalciferol (Vitamin D3) 25 mcg PO DAILY #30 capsule 05/17/20 06/13/20 [Vitamin D3] Loperamide [Imodium] 2 mg PO QID PRN #15 capsule 05/17/20 06/13/20 Oxycodone HCl/Acetaminophen 1 tab PO DAILY PRN 06/13/20 06/13/20 [Oxycodone-Acetaminophen 10-325] levETIRAcetam [Roweepra] 1,500 mg PO BID 06/13/20 06/13/20 - PHYSICAL EXAM AT DISCHARGE General Appearance: positive: No acute distress, Alert. negative: Lethargic Eyes Bilateral: positive: Normal inspection, PERRL, No lid inflammation ENT: positive: ENT inspection nml, No signs of dehydration. negative: Purulent nasal drainage Neck: positive: Nml inspection, Thyroid nml, Trachea midline. negative: Thyromegaly, Stiff neck, Tracheal deviation Respiratory: positive: Chest non-tender, No respiratory distress, Breath sounds nml. negative: Wheezes, Rales, Rhonchi Cardiovascular: positive: Regular rate & rhythm, No murmur. negative: Tachycardia, Bradycardia, Systolic murmur, Diastolic murmur Peripheral Pulses: positive: 2+ Abdomen: positive: Non-tender, Nml bowel sounds, No distention. negative: Tenderness, Guarding, Rebound Back: positive: Nml inspection Skin: positive: Color nml, No rash, Warm, Dry. negative: Cyanosis, Diaphoresis, Pallor Extremities: positive: Non-tender, Full ROM, Nml appearance. negative: Calf tenderness Neurologic/Psychiatric: positive: Oriented x3, Motor nml, Sensation nml, Mood/affect nml. negative: Weakness, Sensory loss, Facial droop, Slurred/abnml speech, Depressed mood/affect - LABS Result Diagrams: 06/13/20 05:45 06/13/20 15:03 - FOLLOW UP Follow Up: you have no seizure in hospital, your Dilantin is nearly to therapeutic level. You reached to your neurologist And will see your neurologist. You would like your neurologist to adjust your medication to control your seizure. Your potassium level is normal now. You will make appointment to see your packaging designer, and You would like your packaging designer to adjust your medication for you. Advised you follow up with your medication regimen. You may follow-up with your PCP in one week, to check potassium level and Dilantin level, you may follow-up with your packaging designer and neurologist as outpatient. Should your symptoms return or worsen, you may present to ER or call 911 for help - TIME SPENT Time Spent in Discharge (Minutes): 30
[2020-06-13 16:46] VITALS: BP 114/63
== END 2020-06-13 15:50 | disposition home or self-care (01) ==
LOC: EDUNIT# → ED 12:23 → MS2 15:55
PROVIDERS: ADMIT Nurse Practitioner Gerontology; ATTEND Nurse Practitioner Gerontology
DX: G40.409 Other generalized epilepsy and epileptic syndromes, not intractable, without status epilepticus (principal); E87.6 Hypokalemia; N25.89 Other disorders resulting from impaired renal tubular function; T42.0X6A Underdosing of hydantoin derivatives, initial encounter; T50.0X6A Underdosing of mineralocorticoids and their antagonists, initial encounter; Z91.128 Patient's intentional underdosing of medication regimen for other reason; Y92.009 Unspecified place in unspecified non-institutional (private) residence as the place of occurrence of the external cause; M25.552 Pain in left hip; G89.29 Other chronic pain; I10 Essential (primary) hypertension; K52.9 Noninfective gastroenteritis and colitis, unspecified; Z79.899 Other long term (current) drug therapy; Z66 Do not resuscitate; Z96.642 Presence of left artificial hip joint; Z79.891 Long term (current) use of opiate analgesic; Z86.14 Personal history of Methicillin resistant Staphylococcus aureus infection; Z99.3 Dependence on wheelchair
CPT/HCPCS: 36415; 73502; 80048; 80053; 80177; 80185; 83690; 83735; 84100; 84132; 84439; 84443; 85025; 96365; 96366; 96367; 96372; 96375; 96376; 99284; 99285; A9270; G0378; J1170; J1650; J7040

== ENCOUNTER 2020-09-20 08:00 | Outpatient (CLI) | payer MEDICARE, MEDICAID ==
[2020-09-20 11:38] LABS: CALCIUM 9.6 mg/dL (8.5-10.3); CREATININE 0.8 mg/dL (0.4-1.0); MAGNESIUM 2.1 mg/dL (1.7-2.8)
== END 2020-09-20 23:59 | disposition home or self-care (01) ==
LOC: LAB 08:00
PROVIDERS: ATTEND Psychiatry & Neurology Neurology
DX: Z01.812 Encounter for preprocedural laboratory examination (principal); G40.109 Localization-related (focal) (partial) symptomatic epilepsy and epileptic syndromes with simple partial seizures, not intractable, without status epilepticus; N05.9 Unspecified nephritic syndrome with unspecified morphologic changes; N30.00 Acute cystitis without hematuria; E83.40 Disorders of magnesium metabolism, unspecified; F17.200 Nicotine dependence, unspecified, uncomplicated
CPT/HCPCS: 36415; 80048; 80177; 83735; 87086; 87181; G0480; 80323; 81599

== ENCOUNTER 2020-10-01 07:45 | Emergency (ER) | payer MEDICARE, MEDICAID ==
[2020-10-01] MEDS ORDERED: SODIUM CHLORIDE 0.9% 1,000 ML IV STA (08:12)
[2020-10-01] MEDS ORDERED: ONDANSETRON 4 MG/2 ML VIAL IVP STA (08:12)
--- NOTE | 2020-10-01 08:16 | ED Physician Documentation ---
History of Present Illness - Stated complaint Stated Complaint: NAUSEA/VOMITING - Chief complaint Chief Complaint: Abd Pain - History obtained from History obtained from: Patient - Additonal information Additional information: Patient comes the emergency department chief complaint of nausea and vomiting for the last 3 days. She states that she is currently on ciprofloxacin for urinary tract infection and has 2 days left of her 1 week course. Patient states that she normally does not have a problem with Cipro and that while many antibiotics make her nauseated, Cipro usually does not. She states her urinalysis was done at her drill sergeant, Dr. Patel's office and that the culture showed sensitivity to Cipro. Patient states that she has had trouble holding all of her medications down over the last few days, including her Keppra and Dilantin, and her chronic pain medication. She denies fevers or chills. No abdominal pain, other than some cramping before vomiting. Patient denies chest pain or shortness of breath. She is not a diabetic. No other complaints at this time. Review of Systems Ten Systems: 10 systems reviewed and negative Constitutional: reports: Reviewed and negative. denies: Fever, Chills Eyes: reports: Reviewed and negative Ears: reports: Reviewed and negative Nose: reports: Reviewed and negative Throat: reports: Reviewed and negative Cardiac: reports: Reviewed and negative. denies: Chest pain / pressure Respiratory: reports: Reviewed and negative GI: reports: Abdominal Pain (cramping), Nausea, Vomiting : reports: Reviewed and negative Skin: reports: Reviewed and negative Musculoskeletal: reports: Reviewed and negative Neurologic: reports: Reviewed and negative Psychiatric: reports: Reviewed and negative Endocrine: reports: Reviewed and negative Immunocompromised: reports: Reviewed and negative PD PAST MEDICAL HISTORY - Past Medical History Cardiovascular: Hypertension, High cholesterol Respiratory: Asthma, Pneumonia Neuro: TIA, Headaches, Migraines, Peripheral neuropathy, Seizure disorder, Other Endocrine/Autoimmune: HyPOthyroidism, Systemic lupus erythematosus GI: GERD, Ulcers, C.difficile, Other INTERACTIVE MEDIA DESIGNER: Ovarian cancer : Incontinence, Chronic bladder infection, Renal insuffiency, Nocturia, Frequency, Kidney stones, Other HEENT: Chronic sinusitis Psych: Depression Musculoskeletal: Osteoarthritis, Osteoporosis, Fatigue, Chronic back pain, Other Derm: Psoriasis - Past Surgical History Past Surgical History: Yes General: Appendectomy Ortho: Hip replacement, Spine surgery /INTERACTIVE MEDIA DESIGNER: 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, Oophrectomy - Present Medications Home Medications: Ambulatory Orders Medication Instructions Recorded Confirmed Omeprazole [PriLOSEC] 20 mg PO BID 02/09/18 10/01/20 Pregabalin [Lyrica] 100 mg PO TID 02/09/18 10/01/20 Phenytoin Sodium Extended 400 mg PO HS 03/16/18 10/01/20 Cetirizine [ZyrTEC] 10 mg PO DAILY 09/06/18 10/01/20 Melatonin 10 mg PO QPM PRN 09/06/18 10/01/20 Magnesium Oxide [Magnesium] 500 mg PO DAILY 09/14/18 10/01/20 diphenhydrAMINE [Benadryl] 25 mg PO DAILY PRN 09/14/18 10/01/20 methocarbamoL [Methocarbamol] 750 mg PO QID 09/20/18 10/01/20 Potassium Citrate [Potassium 40 meq PO TIDWM 04/09/19 10/01/20 Citrate ER] Spironolactone 75 mg PO BID 04/09/19 10/01/20 carvediloL [Carvedilol] 12.5 mg PO Q12H #60 tablet 04/11/19 10/01/20 Amlodipine Besylate 10 mg PO DAILY 10/31/19 10/01/20 Butalb/Acetaminophen/Caffeine 1 cap PO DAILY PRN 02/20/20 10/01/20 [Xulywp-Mtkmjgfj-Qtop 50-300-40] Lasmiditan Succinate [Reyvow] 50 mg PO DAILY PRN 05/16/20 10/01/20 Ondansetron [Ondansetron Odt] 8 mg PO TID 05/16/20 10/01/20 Prochlorperazine Maleate 10 mg PO QID PRN 05/16/20 10/01/20 [Compazine] Cholecalciferol (Vitamin D3) 25 mcg PO DAILY #30 capsule 05/17/20 10/01/20 [Vitamin D3] Loperamide [Imodium] 2 mg PO QID PRN #15 capsule 05/17/20 10/01/20 Oxycodone HCl/Acetaminophen 1 tab PO DAILY PRN 06/13/20 10/01/20 [Oxycodone-Acetaminophen 10-325] levETIRAcetam [Roweepra] 1,500 mg PO BID 06/13/20 10/01/20 - Allergies Allergies/Adverse Reactions: Allergies Allergy/AdvReac Type Severity Reaction Status Date / Time Penicillins Allergy Severe Respiratory Verified 10/01/20 07:49 bacitracin Allergy Mild Hives Verified 10/01/20 07:49 [From Neosporin ([id number])] bacitracin zinc * Allergy Mild Itching Verified 10/01/20 07:49 [From Neosporin (rjr-elo-[id number])] neomycin sulfate * Allergy Mild Itching Verified 10/01/20 07:49 [From Neosporin (ejg-qun-bluug)] lamotrigine Allergy Itching Verified 10/01/20 07:49 venom-honey bee Allergy Unknown Verified 10/01/20 07:49 [bee venom (honey bee)] ciprofloxacin AdvReac Emesis Verified 10/01/20 07:49 - Social History Does the pt smoke?: No Smoking Status: Former smoker Does the pt drink ETOH?: No Does the pt have substance abuse?: No - Immunizations Immunizations are current?: Yes - POLST Patient has POLST: Yes POLST Status: DNR PD ED PE NORMAL - Vitals Vital signs reviewed: Yes - General General: Alert and oriented X 3, No acute distress (well-appearing, talkative.), Well developed/nourished - HEENT HEENT: Atraumatic, PERRL, EOMI, Moist mucous membranes - Neck Neck: Supple, no meningeal sign - Cardiac Cardiac: RRR, No murmur, Strong equal pulses - Respiratory Respiratory: No respiratory distress, Clear bilaterally - Abdomen Abdomen: Soft, Non tender, Other (Moderate obesity) - Derm Derm: Normal color, Warm and dry, No rash - Extremities Extremities: No deformity, No edema, No calf tenderness / cord - Neuro Neuro: Alert and oriented X 3, drug enforcement agent 2-12 intact, No motor deficit, No sensory deficit, Normal speech, Other (Grossly intact) - Psych Psych: Normal mood, Normal affect Results - Vitals Vitals: Oxygen O2 Source Room air - Labs Labs: Laboratory Tests 10/01/20 10/01/20 10/01/20 08:20 09:05 10:10 WBC 8.6 RBC 4.95 Hgb 14.3 Hct 41.8 MCV 84.4 MCH 28.9 MCHC 34.2 RDW 13.3 Plt Count 454 H MPV 9.5 Neut # (Auto) 5.3 Lymph # (Auto) 2.2 [place] # (Auto) 0.8 Eos # (Auto) 0.3 Baso # (Auto) 0.1 Absolute Nucleated RBC 0.00 Nucleated RBC % 0.0 Sodium 131 L Potassium 2.6 L Chloride 99 L Carbon Dioxide 18 L Anion Gap 14.0 H BUN 14 Creatinine 0.9 Estimated GFR (MDRD) 65 L Glucose 114 H Calcium 9.4 Total Bilirubin 0.9 AST 12 ALT 10 Alkaline Phosphatase 130 H Total Protein 7.7 Albumin 4.4 Globulin 3.3 Albumin/Globulin Ratio 1.3 Lipase 20 L Urine Color YELLOW Urine Clarity CLEAR Urine pH 6.0 Ur Specific Ruffin 1.010 Urine Protein TRACE Urine Glucose (UA) NEGATIVE Urine Ketones NEGATIVE Urine Occult Blood MODERATE H Urine Nitrite NEGATIVE Urine Bilirubin NEGATIVE Urine Urobilinogen 0.2 (NORMAL) Ur Leukocyte Esterase NEGATIVE Urine RBC 0-5 Urine WBC 4-5 Ur Squamous Epith Cells MANY Squamous H Urine Bacteria Few Ur Microscopic Review INDICATED Urine Culture Comments NOT INDICATED PD MEDICAL DECISION MAKING - ED course Complexity details: reviewed old records, reviewed results, re-evaluated patient, considered differential, d/w patient ED course: The patient was treated symptomatically with IV fluids, Zofran, and Dilaudid, and worked up With labs. Patient's white blood cell count was normal, and her GFR was 65. Her urinalysis was negative for signs of infection. The patient's phenytoin level was canceled by the lab, unbeknownst to me, for unclear reasons. However, given that the patient was feeling much better after symptomatic treatment, and has not had any seizure activity, I have advised her to get back on her medication. We have discussed home management of the symptoms, as well as the usual indications for return. Departure - Departure Disposition: 01 Home, Self Care Clinical Impression: Vomiting Qualifiers: Vomiting type: bilious vomiting Nausea presence: with nausea Qualified Code(s): R11.14 - Bilious vomiting Urinary tract infection Qualifiers: Urinary tract infection type: acute cystitis Hematuria presence: without hematuria Qualified Code(s): N30.00 - Acute cystitis without hematuria Condition: Stable Instructions: ED UTI Cystitis Female, ED Nausea Vomiting Comments: Your potassium is somewhat low today, as is chronic for you. Some of this is due to the vomiting, undoubtedly, on top of your chronically low potassium. Once the vomiting stops, and combined with you being able to take your potassium supplements, this should improve to baseline. You have been given a dose of potassium here today, as well as nausea medication and IV fluids. The remainder of your labs look good. The Dilantin level will not be able to come back during your emergency department stay; however, if you have not been able to hold the Dilantin down, your level is most likely a little low. Please take a dose as soon as you get home, along with a dose of your Keppra, to help get these levels back on track. Take the oral dissolving Zofran, 1 to 2 tablets every 6 hours, as needed for nausea. Please take only clear liquids in the next 24 hours. If you are able to hold these down in small amounts at a time, then you may progress to larger amounts of clear liquid and also, simple starches such as saltine or oyster crackers, Ramen noodles, or white rice. You are able to tolerate these, then you may continue to progress your diet as tolerated. Discharge Date/Time: 10/01/20 10:26
[2020-10-01] MEDS ORDERED: HYDROmorphone 1 MG/ML CARPUJECT IVP STA (08:21)
[2020-10-01 08:38] LABS: BASOPHILS # (AUTO) 0.1 10^3/uL (0.0-0.1); BASOPHILS % (AUTO) 0.6 %; EOSINOPHILS # (AUTO) 0.3 10^3/uL (0.0-0.7); EOSINOPHILS % (AUTO) 3.8 %; HGB - HEMOGLOBIN 14.3 g/dL (12.0-16.0); LYMPHOCYTES # (AUTO) 2.2 10^3/uL (1.5-3.5); MEAN CORPUSCULAR HEMOGLOBIN 28.9 pg (27.0-31.0); MEAN CORPUSCULAR HGB CONC 34.2 g/dL (32.0-36.0); MEAN CORPUSCULAR VOLUME 84.4 fL (81.0-99.0); MEAN PLATELET VOLUME 9.5 fL (7.9-10.8); MONOCYTES # (AUTO) 0.8 10^3/uL (0.0-1.0); MONOCYTES % (AUTO) 9.2 %; NEUTROPHILS # (AUTO) 5.3 10^3/uL (1.5-6.6); NEUTROPHILS % (AUTO) 61.2 %; PLT - PLATELET COUNT 454 10^3/uL (130-450); RED BLOOD COUNT 4.95 10^6/uL (4.20-5.40); RED CELL DISTRIBUTION WIDTH 13.3 % (12.0-15.0); WHITE BLOOD COUNT 8.6 x10^3/uL (4.8-10.8)
[2020-10-01 09:26] LABS: ALBUMIN 4.4 g/dL (3.2-5.5); ALBUMIN/GLOBULIN RATIO 1.3 (1.0-2.2); BILIRUBIN,TOTAL 0.9 mg/dL (0.2-1.0); CALCIUM 9.4 mg/dL (8.5-10.3); CREATININE 0.9 mg/dL (0.4-1.0); TOTAL PROTEIN 7.7 g/dL (6.7-8.2)
[2020-10-01] MEDS ORDERED: POTASSIUM CHLORIDE 20 MEQ TABLET PO STA (09:36)
[2020-10-01 10:08] VITALS: BP 173/94
[2020-10-01 10:36] LABS: BILIRUBIN,URINE NEGATIVE (NEGATIVE); CLARITY,URINE CLEAR (CLEAR); GLUCOSE, URINE (UA) NEGATIVE (NEGATIVE); KETONES,URINE (UA) NEGATIVE (NEGATIVE); LEUKOCYTE ESTERASE, URINE NEGATIVE (NEGATIVE); NITRITE,URINE NEGATIVE (NEGATIVE); OCCULT BLOOD,URINE MODERATE (NEGATIVE); PROTEIN,URINE TRACE mg/dL (NEGATIVE); UROBILINOGEN,URINE 0.2 (NORMAL) E.U./dL (NORMAL)
[2020-10-01 10:53] LABS: BACTERIA,URINE Few /HPF (None Seen); RBC,URINE 0-5 /HPF (0-5); SQUAMOUS EPITHELIAL CELL,UR MANY Squamous (<= Few)
== END 2020-10-01 10:26 | disposition home or self-care (01) ==
LOC: ED 07:45
DX: R11.14 Bilious vomiting (principal); E87.6 Hypokalemia; N30.00 Acute cystitis without hematuria; I10 Essential (primary) hypertension; M32.9 Systemic lupus erythematosus, unspecified; G40.909 Epilepsy, unspecified, not intractable, without status epilepticus; Z87.891 Personal history of nicotine dependence
CPT/HCPCS: 36415; 80053; 81001; 83690; 85025; 96361; 96374; 96375; 99283; A9270; J1170; 80185; 81003; 87086

== ENCOUNTER 2020-12-24 15:43 | Outpatient (CLI) | payer MEDICARE, MEDICAID | END 2020-12-24 15:44 | disposition critical access hospital (66) | LOC: EMS 15:43 | DX: R40.4 Transient alteration of awareness (principal) | CPT/HCPCS: A0425; A0427 ==

== ENCOUNTER 2020-12-24 15:55 | Observation (INO) | payer MEDICARE, MEDICAID ==
[2020-12-24] MEDS ORDERED: MIDAZOLAM 2 MG/2 ML VIAL ONE (16:03)
--- OUTSIDE RECORDS SUMMARY | 2020-12-24 16:03 | EXTERNAL MEDICAL SUMMARY RPT | Continuity of Care Document ---
:1965 Demographics Phone Unavailable Preferred Language Unknown Marital Status Unknown Sabianism Affiliation Unknown Race Unknown Ethnic Group Unknown Author Organization [place] Address [address] [id number] Phone Social History date description facility [id number]
[2020-12-24] MEDS ORDERED: levETIRAcetam INJ 1,000 MG in SODIUM CHLORIDE 0.9% 100ML 100 ML IV STA (16:09)
[2020-12-24 16:14] LABS: BASOPHILS # (AUTO) 0.1 10^3/uL (0.0-0.1); BASOPHILS % (AUTO) 0.6 %; EOSINOPHILS # (AUTO) 0.1 10^3/uL (0.0-0.7); EOSINOPHILS % (AUTO) 0.4 %; HCT - HEMATOCRIT 50.9 % (37.0-47.0); HGB - HEMOGLOBIN 15.4 g/dL (12.0-16.0); LYMPHOCYTES # (AUTO) 3.3 10^3/uL (1.5-3.5); MEAN CORPUSCULAR HEMOGLOBIN 28.1 pg (27.0-31.0); MEAN CORPUSCULAR HGB CONC 30.3 g/dL (32.0-36.0); MEAN CORPUSCULAR VOLUME 92.7 fL (81.0-99.0); MEAN PLATELET VOLUME 9.4 fL (7.9-10.8); MONOCYTES # (AUTO) 0.5 10^3/uL (0.0-1.0); MONOCYTES % (AUTO) 3.8 %; NEUTROPHILS % (AUTO) 70.3 %; PLT - PLATELET COUNT 535 10^3/uL (130-450); RED BLOOD COUNT 5.49 10^6/uL (4.20-5.40); RED CELL DISTRIBUTION WIDTH 13.4 % (12.0-15.0); WHITE BLOOD COUNT 14.2 x10^3/uL (4.8-10.8)
[2020-12-24] MEDS ORDERED: IOPAMIDOL-300 100 ML VIAL ONE ×2 (16:28→16:29)
[2020-12-24 16:29] LABS: ALBUMIN 5.4 g/dL (3.2-5.5); ALBUMIN/GLOBULIN RATIO 1.5 (1.0-2.2); BILIRUBIN,TOTAL 0.5 mg/dL (0.2-1.0); CALCIUM 10.5 mg/dL (8.5-10.3); CREATININE 1.1 mg/dL (0.4-1.0); TOTAL PROTEIN 8.9 g/dL (6.7-8.2)
[2020-12-24 16:32] LABS: POTASSIUM 6.2 mmol/L (3.5-5.0)
[2020-12-24] MEDS ORDERED: IOPAMIDOL-300 100 ML VIAL IVP ONE (16:39)
--- NOTE | 2020-12-24 16:43 | CT Report ---
PROCEDURE: ANGIO NECK W INDICATIONS: stroke code CONTRAST: IV CONTRAST: Isovue 300 ml: 80 PO CONTRAST: *NO PO CONTRAST TECHNIQUE: After the administration of intravenous contrast, 1.5 mm axial sections acquired from the aortic arch to the [place] of [place]. Coronal 3-D maximum intensity projection (MIP) and/or volume rendering ref ormats were then performed. For radiation dose reduction, the following was used: automated exposur e control, adjustment of mA and/or kV according to patient size. COMPARISON: 02/09/2018. Correlation is also made with the accompanying head CT, September 26, 2020. FINDINGS: Image quality: Motion artifact is noted. Carotid system: The great vessels demonstrate a conventional anatomy as they arise from the aortic a rch. The origins of the common carotid arteries appear patent. The common carotid arteries demonstr ate normal calibers and courses. The bifurcation regions demonstrate atherosclerotic irregularity an d calcification. There is 20-30% narrowing seen involving the left proximal internal carotid artery. Posterior circulation: The origins of the vertebral arteries appear patent. The more superior porti ons of the vertebral arteries demonstrate normal course and caliber. They join to form a normal appe aring basilar artery. Soft tissues: Visualized neck soft tissues demonstrate no suspicious abnormalities. The thyroid gla nd is normal in size. Bones: No suspicious bony lesions. Visualized cervical spine appears normally aligned. Hyperostosi s frontalis is incidentally noted, which is not frankly abnormal for a female patient of this age. A t least moderate cervical spine degenerative change can be seen. A right-sided nasal trumpet can be seen. IMPRESSION: No hemodynamically significant stenosis can be seen within the arteries of the neck. 20-30% narrowing seen involving the left proximal internal carotid artery. The estimate of stenosis included in the report of the imaging study was calculated using the NASCET method Reviewed by: Albino Shetty MD on 12/24/2020 3:42 PM AUGIE Approved by: Albino Shetty MD on 12/24/2020 3:42 PM AKOCTAVIO Station ID: [id number]
--- NOTE | 2020-12-24 16:47 | CT Report ---
PROCEDURE: ANGIO HEAD W/WO INDICATIONS: stroke code CONTRAST: IV CONTRAST: Isovue 300 ml: 80 PO CONTRAST: *NO PO CONTRAST TECHNIQUE: Precontrast 4.5 mm thick angled axial sections acquired from the foramen magnum to the vertex. Afte r the administration of intravenous contrast, 1 mm thick sections acquired through the [place] is. Postcontrast 4.5 mm thick sections then re-acquired from the foramen magnum to the vertex. 3-di mensional nkwejzh-awsohcppz-qlrvjsckcq (MIP) and/or volume rendering reformats were acquired of the c entral intracranial vasculature. For radiation dose reduction, the following was used: automated ex posure control, adjustment of mA and/or kV according to patient size. COMPARISON: Correlation is made with the accompanying neck CT angiogram, 12/24/2020. FINDINGS: Image quality: This study is limited by venous contamination. Anterior circulation: Intracranial internal carotid arteries are normal in size and flow. The flow within the paired anterior cerebral arteries is normal and symmetric. The flow within the middle cer ebral arteries is normal and symmetric. The anterior communicating artery is seen. No aneurysms are seen. Posterior circulation: Visualized portions of the vertebral arteries demonstrate normal caliber, and join to form a normal appearing basilar artery. Flow within the posterior cerebral arteries is norm al and symmetric. No aneurysms are seen. CSF spaces: Ventricles are normal in size and shape. Basal cisterns are patent. No extra-axial flu id collections. Brain: No midline shift. No intracranial bleeds or masses. Pablo-white matter interface appears int act. Skull and face: Calvarium and facial bones appear intact, without suspicious lesions. Hyperostosis frontalis is incidentally noted, which is not frankly abnormal for a female patient of this age. Sinuses: Visualized sinuses and mastoids are clear. At least moderate rightward nasal septal deviati on can be seen. There is a right-sided nasal trumpet. IMPRESSION: No significant intracranial arterial abnormalities are seen. Incidental note is made of: Right-sided nasal trumpet At least moderate right-sided nasal septal deviation Note: Findings relayed to Dr. Zuniga via ER staff, [place], at 3:44 p.m. [place] time on 12/24/2020. Reviewed by: Albino Shetty MD on 12/24/2020 3:46 PM AKDT Approved by: Albino Shetty MD on 12/24/2020 3:46 PM AUGIE Station ID: [id number]
--- NOTE | 2020-12-24 16:48 | XRAY Report ---
PROCEDURE: Chest 1 View X-Ray INDICATIONS: Chest Pain TECHNIQUE: One view of the chest was acquired. COMPARISON: Chest x-ray 05/16/2020 FINDINGS: Surgical changes and devices: None. Lungs and pleura: Poor inspiratory effort is present. There is increased pulmonary vascularity. Patch y opacities are noted in the retrocardiac region. Mediastinum: Mediastinal contours appear normal. Heart size is normal. Bones and chest wall: No suspicious bony lesions. Overlying soft tissues appear unremarkable. IMPRESSION: Increased vascularity may be secondary to pulmonary crowding from poor inspiratory effort versus mini mal edema. Patchy opacities within the retrocardiac region which may represent vascular crowding versus foci of dependent change, developing atelectasis and/or pneumonia. Reviewed by: Rama Leyva MD on 12/24/2020 4:47 PM PDT Approved by: Rama Leyva MD on 12/24/2020 4:47 PM PDT Station ID: [id number]
[2020-12-24] MEDS ORDERED: MIDAZOLAM 2 MG/2 ML VIAL IVP STA (17:23)
--- NOTE | 2020-12-24 18:06 | ED Physician Documentation ---
History of Present Illness - Stated complaint Stated Complaint: CODE STROKE - Chief complaint Chief Complaint: Neuro - History obtained from History obtained from: Family (Daughter), EMS - Additonal information Additional information: 55-year-old woman with history of chronic osteomyelitis, bedbound at baseline, seizure disorder on Keppra presents with slurring of speech this morning that progressed to unresponsiveness around 1500 hrs. Daughter called EMS and they arrived at 1542 to find her slumped over. She began to seize in front of them and they attempted to place IV but were unsuccessful. They gave IM Versed 5 mg and the seizure appeared to pause but she never returned to baseline. It restarted and then the brought her into the emergency department while she was still seizing. The seizure resolved at 1605 prior to medication administration. We were able to establish IV access in the left AC via ultrasound guidance and 5 mg of IV Versed were given followed by a 1 g bolus of Keppra. A stroke code was called and she was brought to CT with performance of CT head Noncon and CT angio of the head and neck without acute findings. Review of Systems Unable to obtain: Unresponsive PD PAST MEDICAL HISTORY - Past Medical History Cardiovascular: Hypertension, High cholesterol Respiratory: Asthma, Pneumonia Neuro: TIA, Headaches, Migraines, Peripheral neuropathy, Seizure disorder, Other Endocrine/Autoimmune: HyPOthyroidism, Systemic lupus erythematosus GI: GERD, Ulcers, C.difficile, Other PHYSICAL MEDICINE PHYSICIAN: Ovarian cancer : Incontinence, Chronic bladder infection, Renal insuffiency, Nocturia, Frequency, Kidney stones, Other HEENT: Chronic sinusitis Psych: Depression Musculoskeletal: Osteoarthritis, Osteoporosis, Fatigue, Chronic back pain, Other Derm: Psoriasis - Past Surgical History Past Surgical History: Yes General: Appendectomy Ortho: Hip replacement, Spine surgery /PHYSICAL MEDICINE PHYSICIAN: 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, Oophrectomy - Present Medications Home Medications: Ambulatory Orders Medication Instructions Recorded Confirmed Omeprazole [PriLOSEC] 20 mg PO BID 02/09/18 10/01/20 Pregabalin [Lyrica] 100 mg PO TID 02/09/18 10/01/20 Phenytoin Sodium Extended 400 mg PO HS 03/16/18 10/01/20 Cetirizine [ZyrTEC] 10 mg PO DAILY 09/06/18 10/01/20 Melatonin 10 mg PO QPM PRN 09/06/18 10/01/20 Magnesium Oxide [Magnesium] 500 mg PO DAILY 09/14/18 10/01/20 diphenhydrAMINE [Benadryl] 25 mg PO DAILY PRN 09/14/18 10/01/20 methocarbamoL [Methocarbamol] 750 mg PO QID 09/20/18 10/01/20 Potassium Citrate [Potassium 40 meq PO TIDWM 04/09/19 10/01/20 Citrate ER] Spironolactone 75 mg PO BID 04/09/19 10/01/20 carvediloL [Carvedilol] 12.5 mg PO Q12H #60 tablet 04/11/19 10/01/20 Amlodipine Besylate 10 mg PO DAILY 10/31/19 10/01/20 Butalb/Acetaminophen/Caffeine 1 cap PO DAILY PRN 02/20/20 10/01/20 [Jhugnz-Rtlbglao-Eozg 50-300-40] Lasmiditan Succinate [Reyvow] 50 mg PO DAILY PRN 05/16/20 10/01/20 Ondansetron [Ondansetron Odt] 8 mg PO TID 05/16/20 10/01/20 Prochlorperazine Maleate 10 mg PO QID PRN 05/16/20 10/01/20 [Compazine] Cholecalciferol (Vitamin D3) 25 mcg PO DAILY #30 capsule 05/17/20 10/01/20 [Vitamin D3] Loperamide [Imodium] 2 mg PO QID PRN #15 capsule 05/17/20 10/01/20 Oxycodone HCl/Acetaminophen 1 tab PO DAILY PRN 06/13/20 10/01/20 [Oxycodone-Acetaminophen 10-325] levETIRAcetam [Roweepra] 1,500 mg PO BID 06/13/20 10/01/20 - Allergies Allergies/Adverse Reactions: Allergies Allergy/AdvReac Type Severity Reaction Status Date / Time Penicillins Allergy Severe Respiratory Verified 12/24/20 16:15 bacitracin Allergy Mild Hives Verified 12/24/20 16:15 [From Neosporin ([id number])] bacitracin zinc * Allergy Mild Itching Verified 12/24/20 16:15 [From Neosporin ([id number])] neomycin sulfate * Allergy Mild Itching Verified 12/24/20 16:15 [From Neosporin ([id number])] lamotrigine Allergy Itching Verified 12/24/20 16:15 venom-honey bee Allergy Unknown Verified 12/24/20 16:15 [bee venom (honey bee)] ciprofloxacin AdvReac Emesis Verified 12/24/20 16:15 - Social History Does the pt smoke?: No Smoking Status: Former smoker Does the pt drink ETOH?: No Does the pt have substance abuse?: No - Immunizations Immunizations are current?: Yes - POLST Patient has POLST: Yes POLST Status: DNR PD ED PE NORMAL - Vitals Vital signs reviewed: Yes - General General: Other (obtunded, with nasal trumpet in place) - HEENT HEENT: Atraumatic, EOMI, Other (L gaze deviation. PERRLA) - Neck Neck: Supple, no meningeal sign - Cardiac Cardiac: Other (tachycardic rate, regular rhythm) - Respiratory Respiratory: Other (coarse BL breath sounds) - Abdomen Abdomen: Non tender, Non distended - Female Female : Deferred - Rectal Rectal: Deferred - Derm Derm: Normal color - Extremities Extremities: No deformity - Neuro Neuro: Other (obtunded, with nasal trumpet in place) - Psych Psych: Other (obtunded, with nasal trumpet in place) Results - Vitals Vitals: Vital Signs - 24 hr 12/24/20 12/24/20 12/24/20 15:55 16:35 16:45 Temperature 37.1 C Heart Rate 146 H 95 94 Respiratory 15 23 22 Rate Blood Pressure 223/134 H 125/76 125/76 O2 Saturation 95 93 95 12/24/20 12/24/20 12/24/20 17:00 17:30 18:00 Temperature Heart Rate 107 H 105 H 108 H Respiratory 24 16 21 Rate Blood Pressure 114/89 H 206/187 H 144/93 H O2 Saturation 96 98 98 Oxygen O2 Source Room air - Labs Labs: Laboratory Tests 12/24/20 12/24/20 12/24/20 16:04 16:04 16:42 WBC 14.2 H RBC 5.49 H Hgb 15.4 Hct 50.9 H MCV 92.7 MCH 28.1 MCHC 30.3 L RDW 13.4 Plt Count 535 H MPV 9.4 Neut # (Auto) 10.0 H Lymph # (Auto) 3.3 Caswell # (Auto) 0.5 Eos # (Auto) 0.1 Baso # (Auto) 0.1 Absolute Nucleated RBC 0.00 Nucleated RBC % 0.0 Sodium 137 Potassium 6.2 H* 3.8 Chloride 97 L Carbon Dioxide 22 Anion Gap 18.0 H BUN 12 Creatinine 1.1 H Estimated GFR (MDRD) 52 L Glucose 278 H Calcium 10.5 H Total Bilirubin 0.5 AST 20 ALT 17 Alkaline Phosphatase 176 H Total Protein 8.9 H Albumin 5.4 Globulin 3.6 Albumin/Globulin Ratio 1.5 Lipase 28 PD MEDICAL DECISION MAKING - ED course ED course: Patient still with decreased responsiveness. She has had no further seizure activity here. 1 g of Keppra has been administered as well as 5 of IV Versed. Discussed goals of care with family and they would like to uphold her POLST DNR/DNI with limited interventions but would also like her to be admitted for observation given decreased responsiveness. We will continue to monitor and have her admitted to observation for the further management and care. I discussed with Dr. Thomson who will put in initial admission orders and have the night hospitalist see her. Departure - Departure Disposition: ED Place in Observation Clinical Impression: Seizure Condition: Stable Discharge Date/Time: 12/24/20 19:15
[2020-12-24] MEDS ORDERED: ONDANSETRON ODT 4 MG TABLET TL PRN (18:21)
[2020-12-24] MEDS ORDERED: oxyCODONE 5 MG TABLET PO PRN (18:21)
[2020-12-24] MEDS ORDERED: SODIUM CHLORIDE FLUSH 0.9% 10 ML SYRINGE IVP PRN (18:21)
[2020-12-24] MEDS ORDERED: SODIUM CHLORIDE 0.9% 1,000 ML IV SCH (19:00)
[2020-12-24] MEDS ORDERED: LORazepam 2 MG/ML VIAL IVP PRN (19:16)
[2020-12-24 19:29] LABS: B. PARAPERTUSSIS- RESP PCR PAN NOT DETECTED; B. PERTUSSIS- RESP PCR PANEL NOT DETECTED; C. PNEUMONIAE- RESP PCR PANEL NOT DETECTED; CORONAVIRUS 229E-RESP PCR NOT DETECTED; CORONAVIRUS HKU1-RESP PCR NOT DETECTED; CORONAVIRUS NL63-RESP PCR NOT DETECTED; CORONAVIRUS OC43-RESP PCR NOT DETECTED; HUMAN METAPNEUMOVIRUS NOT DETECTED; INFLUENZA A- RESP PCR PANEL NOT DETECTED; INFLUENZA B - RESP PCR PANEL NOT DETECTED; M. PNEUMONIAE- RESP PCR PANEL NOT DETECTED; PARAINFLUENZA VIRUS 1 NOT DETECTED; PARAINFLUENZA VIRUS 2 NOT DETECTED; PARAINFLUENZA VIRUS 3 NOT DETECTED; PARAINFLUENZA VIRUS 4 NOT DETECTED; RHINOVIRUS/ENTEROVIRUS NOT DETECTED; RSV- RESP PCR PANEL NOT DETECTED; SARS-CoV-2 -RESP PCR PANEL NOT DETECTED
--- NOTE | 2020-12-24 19:31 | HISTORY & PHYSICAL EXAMINATION ---
Chief Complaint - Chief Complaint Chief Complaint: Slurred speech and seizure History of Present Illness - Admitted From Admitted From:: Home - History Obtained From Records Reviewed: Yes History obtained from: Patient, Daughter, Daytime Hospitalist, EMR - History of Present Illness HPI Comment/Other: This is a 55-year-old female with a past medical history significant for seizure disorder, hypokalemia, chronic osteomyelitis of the left hip, chronic pain, hypertension who presents today after developing slurred speech and a seizure at home. She states she noticed that she start develop slurred speech which is not unusual for her prior to a seizure. She then had a seizure and cannot remember what happened after that. This was witnessed by her son-in-law. She was mainly brought to the emergency department and on her way there via EMS, she continued to seize. She was given 5 mg of Versed at 1000 mg of Keppra. The patient is still slightly postictal but is able to converse. She tells me that it is unusual for her to have a little bit of slurred speech before and after a seizure. Reports her last seizure was back in March. She reports being compliant with her Keppra and Dilantin. Her neurologist is Dr. Tejada at [facility]. She states that she does feel weak in her right arm which began today. She is right-handed. She reports no weakness in her lower extremities up for chronic left lower extremity weakness secondary to chronic pain of the hip due to the chronic osteomyelitis. She is currently not on antibiotics for this. She is scheduled to see orthopedic surgery next week for surgical intervention. She has been dealing with this for over 2 years now. She reports no prior history of stroke. She is not on aspirin at home. She feels like her speech is still a little slurred and her daughter confirms that she is not back to baseline. The patient reports no chest pain or dyspnea. Complains of a chronic cough for the past 6 months. A little bit of nausea and vomiting that began yesterday. She reports no abdominal pain, dysuria, urgency, frequency. She says she has chronic hematuria secondary to the pelvic radiation she received for her history of ovarian cancer. In the emergency department, she was found to be afebrile. Her heart is in the 90s. Blood pressures in the 120s systolic. She was not tachypneic and saturating well on room air. Labs were significant for white count of 14,000. Her potassium was 6.2. CTA of the head and neck showed no acute abnormalities. She was given about the milligrams of Keppra as well as 5 mg of Versed. Given she was still postictal, medicine was consulted for admission. I did confirm with the patient regarding her wishes. She confirms that she is a DNR which is consistent with her POLST form. 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 FARMER: reports: Ovarian cancer : reports: Incontinence, Renal insuffiency, Nocturia, Frequency HEENT: reports: Chronic sinusitis Psych: reports: Depression Musculoskeletal: reports: Osteoarthritis, Osteoporosis, Fatigue, Chronic back pain, Other Derm: reports: Psoriasis MRSA Hx?: Yes - Past Surgical History General: reports: Appendectomy Ortho: reports: Hip replacement, Spine surgery /REPTILE FARMER: reports: 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, Oophrectomy - Family & Social History Family History: Mother: Alive and Well, Father: , CAD Family History Comment/Other: Her mother has a history of cervical cancer and heart disease with CABG. Her father from heart disease. Living arrangement: At home Living Situation: With family Social History Notes: She lives at home with her daughter and son-in-law. She smoked a pack a day for about 15 years but quit 2 years ago. She does not drink alcohol. - Substance History Use: Uses substance without health or social issues: NONE - POLST Patient has POLST: Yes POLST Status: DNR Meds/Allgy - Home Medications Home Medications: Ambulatory Orders Medication Instructions Recorded Confirmed Omeprazole [PriLOSEC] 20 mg PO BID 02/09/18 10/01/20 Pregabalin [Lyrica] 100 mg PO TID 02/09/18 10/01/20 Phenytoin Sodium Extended 400 mg PO HS 03/16/18 10/01/20 Cetirizine [ZyrTEC] 10 mg PO DAILY 09/06/18 10/01/20 Melatonin 10 mg PO QPM PRN 09/06/18 10/01/20 Magnesium Oxide [Magnesium] 500 mg PO DAILY 09/14/18 10/01/20 diphenhydrAMINE [Benadryl] 25 mg PO DAILY PRN 09/14/18 10/01/20 methocarbamoL [Methocarbamol] 750 mg PO QID 09/20/18 10/01/20 Potassium Citrate [Potassium 40 meq PO TIDWM 04/09/19 10/01/20 Citrate ER] Spironolactone 75 mg PO BID 04/09/19 10/01/20 carvediloL [Carvedilol] 12.5 mg PO Q12H #60 tablet 04/11/19 10/01/20 Amlodipine Besylate 10 mg PO DAILY 10/31/19 10/01/20 Butalb/Acetaminophen/Caffeine 1 cap PO DAILY PRN 02/20/20 10/01/20 [Otqsos-Yhlmakib-Larc 50-300-40] Lasmiditan Succinate [Reyvow] 50 mg PO DAILY PRN 05/16/20 10/01/20 Ondansetron [Ondansetron Odt] 8 mg PO TID 05/16/20 10/01/20 Prochlorperazine Maleate 10 mg PO QID PRN 05/16/20 10/01/20 [Compazine] Cholecalciferol (Vitamin D3) 25 mcg PO DAILY #30 capsule 05/17/20 10/01/20 [Vitamin D3] Loperamide [Imodium] 2 mg PO QID PRN #15 capsule 05/17/20 10/01/20 Oxycodone HCl/Acetaminophen 1 tab PO DAILY PRN 06/13/20 10/01/20 [Oxycodone-Acetaminophen 10-325] levETIRAcetam [Roweepra] 1,500 mg PO BID 06/13/20 10/01/20 - Allergies Allergies/Adverse Reactions: Allergies Allergy/AdvReac Type Severity Reaction Status Date / Time Penicillins Allergy Severe Respiratory Verified 12/24/20 16:15 bacitracin Allergy Mild Hives Verified 12/24/20 16:15 [From Neosporin ([id number])] bacitracin zinc * Allergy Mild Itching Verified 12/24/20 16:15 [From Neosporin ([id number])] neomycin sulfate * Allergy Mild Itching Verified 12/24/20 16:15 [From Neosporin ([id number]-hqu-[id number])] lamotrigine Allergy Itching Verified 12/24/20 16:15 venom-honey bee Allergy Unknown Verified 12/24/20 16:15 [bee venom (honey bee)] ciprofloxacin AdvReac Emesis Verified 12/24/20 16:15 Review of Systems - Constitutional Constitutional: reports: Weakness. denies: Fever, Chills - Cardiovascular Cariovascular: denies: Chest pain, Exertional dyspnea, Decr. exercise tolerance - Respiratory Respiratory: reports: Cough. denies: Sputum production, SOB at rest, SOB with e xertion - Gastrointestinal Gastrointestinal: reports: Nausea, Vomiting. denies: Abdominal pain, Change in bowel habits - Genitourinary Genitourinary: reports: Hematuria. denies: Dysuria, Frequency, Urgency - Musculoskeletal Musculoskeletal: reports: Back pain, Limited range of motion, Muscle weakness, Joint pain - Neurological Neurological: reports: Focal weakness, Numbness, Slurred speech - Hematologic/Lymphatic Hematologic/Lymphatic: denies: Anemia, Bleeding tendencies - All Other Systems All Other Systems: reports: Reviewed and negative Prior Level of Functionality: She usually ambulates with wheelchair as she is nonweightbearing on the left hip due to the chronic osteomyelitis. She will occasionally use a walker but this is not very often. Exam - Vital Signs Reviewed Vital Signs: Yes Vital Signs: Vital Signs x48h Temp Pulse Resp BP Pulse Ox 12/24/20 18:33 102 H 19 153/100 H 97 12/24/20 18:00 108 H 21 144/93 H 98 12/24/20 17:30 105 H 16 206/187 H 98 12/24/20 17:00 107 H 24 114/89 H 96 12/24/20 16:45 94 22 125/76 95 12/24/20 16:35 95 23 125/76 93 12/24/20 15:55 37.1 C 146 H 15 223/134 H 95 - Physical Exam General Appearance: positive: Mild distress, Lethargic Eyes Bilateral: positive: Normal inspection, Conjunctivae nml ENT: positive: ENT inspection nml Neck: positive: Nml inspection Respiratory: positive: No respiratory distress. negative: Wheezes, Rales Cardiovascular: positive: Tachycardia. negative: Irregularly irregular, Systolic murmur Abdomen: positive: Non-tender, No distention. negative: Tenderness, Guarding, Rebound Skin: positive: Warm, Dry Extremities: positive: No pedal edema, Other (Her left lower extremity is shortened and externally rotated. She does have tenderness over the lateral aspect of the left hip.) Neurologic/Psychiatric: positive: Sensation nml (Intact in all 4 extremities.), Facial droop (She has a very slight left-sided facial droop.), Slurred/abnml speech (Her speech is still somewhat slurred but improved per patient and family), Other (She has 5 out of 5 motor strength in her right upper extremity. Her left upper extremity motor strength is about 3 out of 5. Motor exam of the left lower extremity limited due to chronic pain and limited range of motion due to the hip. She is able to dorsiflex and plantar flex both of her feet.). negative: Disoriented to person, Disoriented to place, Disoriented to time Conclusion/Plan - Problem List (1) Seizure disorder Conclusion/Plan: She has a known seizure disorder for which she is on phenytoin, Keppra. Imaging revealed no acute abnormalities. She does have a history of subtherapeutic D ilantin levels. Given she is postictal, we will place her in observation to ensure her mentation returns to baseline. We will resume her home dose of Keppra and Dilantin We will also resume her home dose of Dilantin. We will check Dilantin levels in the morning. We will hold off on checking Keppra levels given it is a send out lab and she received a bolus dose in the emergency department. We will use Ativan IV as needed for seizures. Seizure precautions. (2) Stroke-like symptoms Conclusion/Plan: Her initial presentation today was slurred speech which evolved unresponsiveness followed by a seizure. CTA of the head and neck showed no significant stenosis. She tells me that slurred speech is not unusual for her prior to her stroke but the fact that she has a new deficit in left upper extremity is concerning for stroke. By history she tells me she feels weak in her right arm but on exam, the left arm is significantly decreased from motor strength aspect. At this time, we will give her a dose of aspirin [address] did not reveal a he morrhage. Will allow for permissive hypertension.. Monitor on telemetry. Will obtain MRI and echocardiogram. Check A1c and lipid panel. (3) Postictal state Conclusion/Plan: This is the cause of her encephalopathy. She is in a postictal state after the seizure and the fact that she received Versed is likely contributing to her encephalopathy but she is improving and close to baseline. CT of the head and neck did not reveal any acute abnormalities. We will observe her overnight to ensure that her mentation returns to baseline. Will consider MRI in the morning. We will hold off on sedatives unless she has further seizures. (4) Hypertension Conclusion/Plan: She is currently hypertensive with systolic in the 150s. We will allow for permissive hypertension given the concern for stroke. (5) Leukocytosis Conclusion/Plan: Suspect this is likely reactive secondary to the seizure. Her chest x-ray did not reveal an obvious infiltrate. At this time we will hold off on antibiotics and continue to monitor for signs of infection including fever or rising white count. (6) Osteomyelitis hip Conclusion/Plan: She has chronic osteomyelitis of the left hip and is currently not on any antibiotics. She is scheduled to see orthopedic surgery next week at [facility] for surgical intervention on this hip. She will continue outpatient follow-up once discharged. 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 Simms of nephrology. She is on spironolactone for this. Her potassium is initially 6.2 but on recheck it had decreased to 3.8. Suspect the initial reading was a false elevation. We will recheck in the morning and potassium stable then we will resume her spironolactone. (8) Chronic pain Conclusion/Plan: Stable. She has chronic pain of the left lower extremity secondary to the chronic osteomyelitis and multiple surgical intervention she has had in the past. We will continue her home dose of Lyrica and Percocet. Qualifiers: Chronic pain type: other chronic postprocedural pain Qualified Code(s): G89.28 - Other chronic postprocedural pain (9) Hypothyroidism Conclusion/Plan: Synthroid does not appear to be on her home medication list but we will need to confirm this with pharmacy in the morning. Her last TSH is slightly elevated at 6. We will recheck a TSH in the morning. - Lab Results Lab results reviewed: Yes Fish Bones: 12/24/20 16:04 12/24/20 16:42 - Diagnostic Imaging Results Diagnostic Imaging Results: positive: Final report reviewed - EKG Results EKG Interpreted Independently: Yes EKG Comparison: Changed from prior EKG (Compared to prior EKG, the QTC is pro longed.) EKG Findings: EKG shows a sinus rhythm with a prolonged QTC of 487. No evidence of ischemia. Core Measures - Anticipated LOS I expect patient to be DC'd or transferred within 96 hours.: Yes - Issues Hospital Issues and Management Plan: 55-year-old female with history of seizure disorder who presents after having slurred speech followed by an episode of unresponsiveness and then a seizure. She is still slightly postictal so we will place in observation but also has new focal deficits concerning for possible stroke. We will give her aspirin and obtain MRI in the morning. - DVT/VTE - Prophylaxis VTE/DVT Device ordered at admit?: Yes
[2020-12-24] MEDS ORDERED: ASPIRIN CHEW 81 MG TABLET PO STA (19:41)
[2020-12-24] MEDS: levETIRAcetam 250 MG TABLET PO SCH (20:46)
[2020-12-24] MEDS: BUTALB/ACETAM/CAFF 50/325/40MG TABLET PO PRN (20:48)
[2020-12-24] MEDS ORDERED: carvediloL 12.5 MG TABLET PO SCH (21:00)
[2020-12-24] MEDS ORDERED: levETIRAcetam INJ 1,500 MG in SODIUM CHLORIDE 0.9% 100ML 100 ML IV SCH (21:00)
[2020-12-24] MEDS ORDERED: ATORVASTATIN 40 MG TABLET PO SCH (21:00)
[2020-12-24] MEDS: PREGABALIN 100 MG CAPSULE PO SCH (21:47)
[2020-12-24] MEDS ORDERED: PHENYTOIN CHEW 50 MG TABLET PO SCH (23:00)
[2020-12-24] MEDS: methocarbamoL 500 MG TABLET PO PRN (23:04)
[2020-12-25 04:52] LABS: BASOPHILS % (AUTO) 0.2 %; EOSINOPHILS % (AUTO) 0.2 %; HCT - HEMATOCRIT 39.9 % (37.0-47.0); HGB - HEMOGLOBIN 12.9 g/dL (12.0-16.0); LYMPHOCYTES # (AUTO) 2.4 10^3/uL (1.5-3.5); LYMPHOCYTES % (AUTO) 18.1 %; MEAN CORPUSCULAR HEMOGLOBIN 28.2 pg (27.0-31.0); MEAN CORPUSCULAR HGB CONC 32.3 g/dL (32.0-36.0); MEAN CORPUSCULAR VOLUME 87.1 fL (81.0-99.0); MEAN PLATELET VOLUME 9.3 fL (7.9-10.8); MONOCYTES # (AUTO) 1.3 10^3/uL (0.0-1.0); MONOCYTES % (AUTO) 9.9 %; NEUTROPHILS # (AUTO) 9.2 10^3/uL (1.5-6.6); NEUTROPHILS % (AUTO) 71.1 %; PLT - PLATELET COUNT 382 10^3/uL (130-450); RED BLOOD COUNT 4.58 10^6/uL (4.20-5.40); RED CELL DISTRIBUTION WIDTH 13.8 % (12.0-15.0)
[2020-12-25 05:05] LABS: CALCIUM 9.1 mg/dL (8.5-10.3); CREATININE 0.8 mg/dL (0.4-1.0); PHENYTOIN (DILANTIN) 5.1 ug/mL; POTASSIUM 2.9 mmol/L (3.5-5.0)
[2020-12-25 05:10] LABS: CHOLESTEROL 244 mg/dL; HDL CHOLESTEROL 41 mg/dL; LDL CHOLESTEROL,CALCULATED 141 mg/dL; LDL/HDL RATIO 3.4 (<4.4); TRIGLYCERIDES 311 mg/dL; VLDL CHOLESTEROL 62 mg/dL
[2020-12-25] MEDS ORDERED: POTASSIUM CHLORIDE 20 MEQ TABLET PO ONE (05:45)
[2020-12-25] MEDS: PREGABALIN 100 MG CAPSULE PO SCH ×2 (06:29→13:24)
[2020-12-25] MEDS: SODIUM CHLORIDE FLUSH 0.9% 10 ML SYRINGE IVP SCH ×2 (06:30→08:44)
[2020-12-25] MEDS: POTASSIUM CHLOR 10 MEQ/100 ML 10 MEQ/100 ML BAG IV SCH ×4 (06:30→09:53)
--- NOTE | 2020-12-25 07:23 | CT Report ---
PROCEDURE: Head W/O Stroke Protocol INDICATIONS: STROKE CODE TECHNIQUE: Noncontrast 4.5 mm thick angled axial sections acquired from the foramen magnum to the vertex, with c oronal reformats. For radiation dose reduction, the following was used: automated exposure control, adjustment of mA and/or kV according to patient size. COMPARISON: 05/16/2020 FINDINGS: Image quality: Excellent. CSF spaces: Basal cisterns are patent. No extra-axial fluid collections. Ventricles are normal in size and shape. Brain: No midline shift. No intracranial masses or hemorrhage. Pablo-white matter interface is norm al. Skull and face: Calvarium and visualized facial bones are intact, without suspicious lesions. Sinuses: Visualized sinuses and mastoids are clear. IMPRESSION: No acute intracranial disease process. This study fulfills neurological imaging criteria for inclusion or exclusion of acute stroke therapie s based on available published neurological imaging guidelines. Reviewed by: Tarsha Gonzales MD, PhD on 12/24/2020 4:38 PM PDT Approved by: Tarsha Gonzales MD, PhD on 12/24/2020 4:38 PM PDT Station ID: [id number]
[2020-12-25] MEDS: methocarbamoL 500 MG TABLET PO PRN (08:13)
[2020-12-25] MEDS: ONDANSETRON 4 MG/2 ML VIAL IVP PRN ×2 (08:35→15:22)
[2020-12-25] MEDS: levETIRAcetam 250 MG TABLET PO SCH (08:39)
[2020-12-25] MEDS ORDERED: carvediloL 12.5 MG TABLET PO SCH ×2 (09:00→10:00)
[2020-12-25] MEDS ORDERED: amLODIPine 5 MG TABLET PO SCH (09:00)
[2020-12-25] MEDS ORDERED: ASPIRIN CHEW 81 MG TABLET PO SCH (09:00)
[2020-12-25] MEDS: ACETAMINOPHEN 325 MG TABLET PO PRN ×2 (09:01→15:22)
[2020-12-25] MEDS: oxyCODONE 5 MG TABLET PO PRN ×2 (09:47→15:24)
[2020-12-25] MEDS ORDERED: LORazepam 0.5 MG TABLET PO STA (11:09)
[2020-12-25] MEDS ORDERED: DIPHENOX/ATROPINE 2.5/0.025 MG TABLET PO PRN (11:10)
--- NOTE | 2020-12-25 11:33 | PHARMACY PROGRESS NOTE ---
- Best Possible Medication History Admit Date and Time: 12/24/20 182 Processed by: Pharmacy Medication History completed: Yes Patient Interview: Completed Secondary Source(s): Physician records, Pharmacy records, Insurance records (PATIENT INTERVIEWED BY PHARMACY. PATIENT PROVIDED MEDICATION LIST) As the person ultimately responsible for medication therapy, providers are able to order a medication from an existing home medication list in [facility] via the "Reconcile Routine" prior to Confirmation of that medication by field support technician. Such practice is discouraged except when the physician, in their clinical judgment, deems that a medical need exists for a medication without regard to previous use.
[2020-12-25] MEDS ORDERED: methocarbamoL 500 MG TABLET PO PRN (12:00)
[2020-12-25 12:21] LABS: ESTIMATED AVERAGE GLUCOSE 131 mg/dL (70-100); HEMOGLOBIN A1c% 6.2 % (4.27-6.07)
--- NOTE | 2020-12-25 12:28 | MRI Report ---
PROCEDURE: Brain W/O INDICATIONS: Neuro deficit. Stroke suspected. TECHNIQUE: Noncontrast axial T1 spin echo, axial T2 fast spin echo, sagittal and axial FLAIR, coronal T2 fast sp in echo, axial gradient echo, axial diffusion and ADC through the brain. COMPARISON: Correlation is made with recent head and neck CT examinations, 12/24/2020. FINDINGS: Image quality: Diagnostic, with note made of motion artifact. CSF Spaces: Basal cisterns are patent. No extra-axial fluid collections. Ventricles are normal in size and shape. Brain: No intracranial masses or hemorrhage. Pablo/white matter interface is normal. Brainstem appe ars normal. Diffusion-weighted images demonstrate no acute ischemic insult. No chronic ischemic ins ults. Normal intravascular flow voids are present. Brain parenchymal volume loss is seen. Chronic s mall vessel ischemic change is seen. Skull and face: Calvarium has normal marrow signal. Orbits appear normal. Hyperostosis frontalis i s incidentally noted, which is not frankly abnormal for a female patient of this age. Sinuses: There is an air-fluid level seen within the right maxillary sinus. Milder mucosal thickening is seen elsewhere within the paranasal sinuses. Moderate rightward nasal septal deviation can be see n. No significant abnormal fluid can be seen within the mastoid air cells or within the middle ear ca vities. IMPRESSION: No findings of acute or subacute infarction are seen. Right maxillary sinus air-fluid level seen noted, which is likely related to the previously placed ri ght-sided nasal trumpet. Age-appropriate brain parenchymal volume loss and chronic small vessel ischemic change can be seen. Reviewed by: Albino Shetty MD on 12/25/2020 11:27 AM AUGIE Approved by: Albino Shetty MD on 12/25/2020 11:27 AM AUGIE Station ID: [id number]
[2020-12-25] MEDS: BUTALB/ACETAM/CAFF 50/325/40MG TABLET PO PRN (13:23)
--- NOTE | 2020-12-25 14:22 | DISCHARGE SUMMARY ---
Discharge Summary Admit Date: 12/24/20 Discharge Date: 12/25/20 Discharging Provider: Florence Stevenson Primary Care Provider: Bisi Nelson Code Status: Do Not Attempt Resuscitation Condition at Discharge: Stable Discharge Disposition: 01 Home, Self Care - DIAGNOSES Admission Diagnoses: Seizure Disorder Stroke-like symptoms Postictal state Hypertension Leukocytosis Osteomyelitis hip Hypokalemia due to excessive renal loss of potassium Chronic pain Hypothyroidism Discharge Diagnoses with Status of Each Condition: Seizure Disorder: Acute on Chronic. Patient is at baseline Stroke-like symptoms: Acute. Resolved Postictal state: Acute. Resolved Hypertension: Chronic. Stable Leukocytosis: Acute. Stable Osteomyelitis hip:. Patient has surgery planned in the next week. Hypokalemia due to excessive renal loss of potassium Chronic pain Hypothyroidism: Chronic. Baseline. - HPI History of Present Illness: Per HPI: This is a 55-year-old female with a past medical history significant for seizure disorder, hypokalemia, chronic osteomyelitis of the left hip, chronic pain, hypertension who presents today after developing slurred speech and a seizure at home. She states she noticed that she start develop slurred speech which is not unusual for her prior to a seizure. She then had a seizure and cannot remember what happened after that. This was witnessed by her son-in-law. She was mainly brought to the emergency department and on her way there via EMS, she continued to seize. She was given 5 mg of Versed at 1000 mg of Keppra. The patient is still slightly postictal but is able to converse. She tells me that it is unusual for her to have a little bit of slurred speech before and after a seizure. Reports her last seizure was back in March. She reports being compli ant with her Keppra and Dilantin. Her neurologist is Dr. Tejada at [facility]. She states that she does feel weak in her right arm which began today. She is right-handed. She reports no weakness in her lower extremities up for chronic left lower extremity weakness secondary to chronic pain of the hip due to the chronic osteomyelitis. She is currently not on antibiotics for this. She is scheduled to see orthopedic surgery next week for surgical intervention. She has been dealing with this for over 2 years now. She reports no prior history of stroke. She is not on aspirin at home. She feels like her speech is still a little slurred and her daughter confirms that she is not back to baseline. The patient reports no chest pain or dyspnea. Complains of a chronic cough for the past 6 months. A little bit of nausea and vomiting that began yesterday. She reports no abdominal pain, dysuria, urgency, frequency. She says she has chronic hematuria secondary to the pelvic radiation she received for her history of ovarian cancer. In the emergency department, she was found to be afebrile. Her heart is in the 90s. Blood pressures in the 120s systolic. She was not tachypneic and saturating well on room air. Labs were significant for white count of 14,000. Her potassium was 6.2. CTA of the head and neck showed no acute abnormalities. She was given about the milligrams of Keppra as well as 5 mg of Versed. Given she was still postictal, medicine was consulted for admission. I did confirm with the patient regarding her wishes. She confirms that she is a DNR which is consistent with her POLST form. - HOSPITAL COURSE Hospital Course: She underwent a CT of the brain without contrast which was negative for any acute process. She also had a CT angio of the head and neck done which was negative for any significant stenosis. There was 20 to 30% narrowing seen involving the left proximal internal carotid artery. An MRI of the brain showed no findings of acute or subacute infarction. 2D echocardiogram showed left ventricular systolic function is normal with an ejection fraction of 60 to 65%. No regional wall motion abnormalities were seen. The right ventricle is normal in size and function. The left atrial volume index is normal Patient was admitted to the ICU for closer monitoring. She was maintained on Keppra and Dilantin for her seizures. Ativan was ordered as needed in the event of further seizures. There were no recurrence of seizures during the patient's hospital stay. By the time of discharge the patient's slurred speech had resolved. She was moving all extremities and was able to ambulate to the bathroom and back with no significant difficulties. At presentation her white blood cell count was 14. By the time of discharge it was 13.The elevation could have been due to the patient's seizure. However the patient also has chronic osteomyelitis of the left hip and is scheduled to see orthopedic surgery for surgery next week. She has been advised to keep the appointment and she plans to do so. She may follow-up with her primary care physician within 7 to 10 days or as needed. - ALLERGIES Allergies/Adverse Reactions: Allergies Allergy/AdvReac Type Severity Reaction Status Date / Time Penicillins Allergy Severe Respiratory Verified 12/24/20 16:15 bacitracin Allergy Mild Hives Verified 12/24/20 16:15 [From Neosporin ([id number])] bacitracin zinc * Allergy Mild Itching Verified 12/24/20 16:15 [From Neosporin ([id number])] neomycin sulfate * Allergy Mild Itching Verified 12/24/20 16:15 [From Neosporin ([id number])] lamotrigine Allergy Itching Verified 12/24/20 16:15 venom-honey bee Allergy Unknown Verified 12/24/20 16:15 [bee venom (honey bee)] ciprofloxacin AdvReac Emesis Verified 12/24/20 16:15 - MEDICATIONS Home Medications: Ambulatory Orders Medication Instructions Recorded Confirmed Omeprazole [PriLOSEC] 20 mg PO BID 02/09/18 12/25/20 Phenytoin Sodium Extended 400 mg PO HS 03/16/18 12/25/20 Cetirizine [ZyrTEC] 10 mg PO DAILY 09/06/18 12/25/20 Melatonin 10 mg PO QPM PRN 09/06/18 12/25/20 diphenhydrAMINE [Benadryl] 25 mg PO DAILY PRN 09/14/18 12/25/20 Potassium Citrate [Potassium 40 meq PO QPM 04/09/19 12/25/20 Citrate ER] Spironolactone 50 mg PO BID 04/09/19 12/25/20 carvediloL [Carvedilol] 12.5 mg PO Q12H #60 tablet 04/11/19 12/25/20 Amlodipine Besylate 10 mg PO DAILY 10/31/19 12/25/20 Butalb/Acetaminophen/Caffeine 1 cap PO DAILY PRN 02/20/20 12/25/20 [Rtzekj-[id number]-Ckxe 50-300-40] Lasmiditan Succinate [Reyvow] 50 mg PO DAILY PRN 05/16/20 12/25/20 Ondansetron [Ondansetron Odt] 8 mg PO TID PRN 05/16/20 12/25/20 Prochlorperazine Maleate 10 mg PO QID PRN 05/16/20 12/25/20 [Compazine] Oxycodone HCl/Acetaminophen 1 tab PO Q4HR PRN 06/13/20 12/25/20 [Oxycodone-Acetaminophen 10-325] levETIRAcetam [Roweepra] 1,000 mg PO BID 06/13/20 12/25/20 Atorvastatin [Lipitor] 20 mg PO QPM 12/25/20 12/25/20 Cholecalciferol (Vitamin D3) 1,250 mcg PO .QWEEK 12/25/20 12/25/20 [Vitamin D3] Clobetasol 0.05% Oint [Temovate 1 appful TOP TID PRN 12/25/20 12/25/20 0.05% Oint] Desonide 1 appful TOP BID 12/25/20 12/25/20 Magnesium Citrate 100 mg PO DAILY 12/25/20 12/25/20 Pregabalin [Lyrica] 75 mg PO TID 12/25/20 12/25/20 methocarbamoL [Methocarbamol] 1,000 mg PO QID 12/25/20 12/25/20 - PHYSICAL EXAM AT DISCHARGE General Appearance: positive: No acute distress, Alert Eyes Bilateral: positive: PERRL, EOMI ENT: positive: No signs of dehydration Neck: positive: No JVD, Trachea midline Respiratory: positive: Chest non-tender, No respiratory distress, Breath sounds nml. negative: Wheezes, Rales, Rhonchi Cardiovascular: positive: Regular rate & rhythm, No murmur Abdomen: positive: Non-tender, No organomegaly, Nml bowel sounds, No distention. negative: Guarding, Rebound Back: positive: Nml inspection Skin: positive: Color nml, No rash, Warm, Dry, Cyanosis Extremities: positive: Non-tender, Full ROM, Nml appearance, No pedal edema Neurologic/Psychiatric: positive: Oriented x3, Motor nml, Mood/affect nml - LABS Result Diagrams: 12/25/20 04:37 12/25/20 04:37 - TIME SPENT Time Spent in Discharge (Minutes): 25
--- NOTE | 2020-12-25 14:28 | Discharge Plan ---
Discharge Plan Problem Reviewed?: Yes Disposition: 01 Home, Self Care Condition: Stable Diet: Regular Activity Restrictions: Activity as Tolerated Health Concerns: You were admitted with a seizure and slurred speech after the seizure concerning for possible CVA. You underwent a CT scan of the brain without contrast which was unremarkable. You had an MRI done today which was negative for any acute ischemic process. He also had a 2D echocardiogram done which showed an ejection fraction of 60 to 65%You were maintained on Keppra and Dilantin during your hospital stay. There was no recurrence of seizures during the overnight hospital stay. By the time of discharge you were at your baseline. You were able to ambulate to the bathroom with some assistance. You are moving all extremities and speaking clearly in full sentences. You are being discharged home. You are to follow-up with the orthopedic surgeons for your planned surgery within the coming week. The above was discussed with you while your daughter was present. You expressed understanding and are agreeable with the plan. You may follow-up with your primary care physician as needed or within 7-10 business days. Plan of Treatment: You were admitted with a seizure and slurred speech after the seizure concerning for possible CVA. You underwent a CT scan of the brain without contrast which was unremarkable. You had an MRI done today which was negative for any acute ischemic process. He also had a 2D echocardiogram done which showed an ejection fraction of 60 to 65%You were maintained on Keppra and Dilantin during your hospital stay. There was no recurrence of seizures during the overnight hospital stay. By the time of discharge you were at your baseline. You were able to ambulate to the bathroom with some assistance. You are moving all extremities and speaking clearly in full sentences. You are being discharged home. You are to follow-up with the orthopedic surgeons for your planned surgery within the coming week. The above was discussed with you while your daughter was present. You expressed understanding and are agreeable with the plan. You may follow-up with your primary care physician as needed or within 7-10 business days. Care Goals: You were admitted with a seizure and slurred speech after the seizure concerning for possible CVA. You underwent a CT scan of the brain without contrast which was unremarkable. You had an MRI done today which was negative for any acute ischemic process. He also had a 2D echocardiogram done which showed an ejection fraction of 60 to 65%You were maintained on Keppra and Dilantin during your hospital stay. There was no recurrence of seizures during the overnight hospital stay. By the time of discharge you were at your baseline. You were able to ambulate to the bathroom with some assistance. You are moving all extremities and speaking clearly in full sentences. You are being discharged home. You are to follow-up with the orthopedic surgeons for your planned surgery within the coming week. The above was discussed with you while your daughter was present. You expressed understanding and are agreeable with the plan. You may follow-up with your primary care physician as needed or within 7-10 business days. Assessment: You were admitted with a seizure and slurred speech after the seizure concerning for possible CVA. You underwent a CT scan of the brain without contrast which was unremarkable. You had an MRI done today which was negative for any acute ischemic process. He also had a 2D echocardiogram done which showed an ejection fraction of 60 to 65%You were maintained on Keppra and Dilantin during your hospital stay. There was no recurrence of seizures during the overnight hospital stay. By the time of discharge you were at your baseline. You were able to ambulate to the bathroom with some assistance. You are moving all extremities and speaking clearly in full sentences. You are being discharged home. You are to follow-up with the orthopedic surgeons for your planned surgery within the coming week. The above was discussed with you while your daughter was present. You expressed understanding and are agreeable with the plan. You may follow-up with your primary care physician as needed or within 7-10 business days. No Smoking: If you smoke, Please STOP! Call for help. Follow-up with: TOYIN SHEPPARD [Primary Care Provider] -
[2020-12-25] MEDS ORDERED: METOPROLOL 5 MG/5 ML VIAL IVP STA (14:57)
[2020-12-25 15:13] LABS: CALCIUM 9.6 mg/dL (8.5-10.3); CREATININE 0.8 mg/dL (0.4-1.0); POTASSIUM 3.8 mmol/L (3.5-5.0)
[2020-12-25 16:23] VITALS: BP 137/80
[2020-12-25] MEDS ORDERED: PHENYTOIN ER 100 MG CAPSULE PO SCH (21:00)
== END 2020-12-25 16:10 | disposition home or self-care (01) ==
LOC: EDUNIT# → ED 15:55 → ICU 18:21
PROVIDERS: ADMIT Specialist; ATTEND Internal Medicine
DX: G40.909 Epilepsy, unspecified, not intractable, without status epilepticus (principal); I10 Essential (primary) hypertension; D72.829 Elevated white blood cell count, unspecified; R47.81 Slurred speech; M86.68 Other chronic osteomyelitis, other site; E87.6 Hypokalemia; G89.29 Other chronic pain; E03.9 Hypothyroidism, unspecified; R53.1 Weakness; Z20.822 Contact with and (suspected) exposure to COVID-19; Z66 Do not resuscitate; R05 Cough; R31.9 Hematuria, unspecified; R11.2 Nausea with vomiting, unspecified; G62.9 Polyneuropathy, unspecified; M54.9 Dorsalgia, unspecified; Z99.3 Dependence on wheelchair; R29.810 Facial weakness; G93.40 Encephalopathy, unspecified; Z85.43 Personal history of malignant neoplasm of ovary; Z87.891 Personal history of nicotine dependence; Z79.899 Other long term (current) drug therapy; Z92.3 Personal history of irradiation; R32 Unspecified urinary incontinence
CPT/HCPCS: 36415; 70450; 70496; 70498; 70551; 71045; 80048; 80053; 80061; 80185; 83036; 83690; 83735; 84132; 84443; 85025; 87040; 87150; 87631; 93005; 93306; 96365; 96366; 96367; 96375; 96376; 99285; A9270; G0378; Q9967; 0202U; 83721

== ENCOUNTER 2021-01-21 08:36 | Emergency (ER) | payer MEDICARE, MEDICAID ==
--- OUTSIDE RECORDS SUMMARY | 2021-01-21 08:40 | EXTERNAL MEDICAL SUMMARY RPT | Continuity of Care Document ---
:1965 Demographics Phone Unavailable Preferred Language Unknown Marital Status Unknown Adventism Affiliation Unknown Race Unknown Ethnic Group Unknown Author Organization [facility] Address [address] [phone] Phone Allergies Encounters Medications Problems Results
[2021-01-21] MEDS ORDERED: SODIUM CHLORIDE 0.9% 1,000 ML IV STA (08:59)
[2021-01-21] MEDS ORDERED: ONDANSETRON 4 MG/2 ML VIAL IVP STA ×2 (08:59→16:12)
[2021-01-21 09:34] LABS: BASOPHILS # (AUTO) 0.1 10^3/uL (0.0-0.1); BASOPHILS % (AUTO) 0.9 %; EOSINOPHILS # (AUTO) 0.2 10^3/uL (0.0-0.7); EOSINOPHILS % (AUTO) 3.2 %; HCT - HEMATOCRIT 40.2 % (37.0-47.0); HGB - HEMOGLOBIN 12.8 g/dL (12.0-16.0); LYMPHOCYTES # (AUTO) 1.5 10^3/uL (1.5-3.5); MEAN CORPUSCULAR HEMOGLOBIN 29.6 pg (27.0-31.0); MEAN CORPUSCULAR HGB CONC 31.8 g/dL (32.0-36.0); MEAN CORPUSCULAR VOLUME 92.8 fL (81.0-99.0); MEAN PLATELET VOLUME 9.2 fL (7.9-10.8); MONOCYTES # (AUTO) 0.5 10^3/uL (0.0-1.0); NEUTROPHILS # (AUTO) 3.7 10^3/uL (1.5-6.6); NEUTROPHILS % (AUTO) 62.6 %; PLT - PLATELET COUNT 567 10^3/uL (130-450); RED BLOOD COUNT 4.33 10^6/uL (4.20-5.40); RED CELL DISTRIBUTION WIDTH 15.9 % (12.0-15.0); WHITE BLOOD COUNT 5.9 x10^3/uL (4.8-10.8)
--- OUTSIDE RECORDS SUMMARY | 2021-01-21 09:40 | EXTERNAL MEDICAL SUMMARY RPT | Continuity of Care Document ---
:1965 Demographics Phone Unavailable Preferred Language Unknown Marital Status Unknown Synagogue Affiliation Unknown Race Unknown Ethnic Group Unknown Author Organization [facility] Address [address] [phone] Phone Allergies Encounters Medications Problems Results
[2021-01-21 09:46] LABS: ALBUMIN 4.2 g/dL (3.2-5.5); ALBUMIN/GLOBULIN RATIO 1.2 (1.0-2.2); BILIRUBIN,TOTAL 0.8 mg/dL (0.2-1.0); CALCIUM 9.2 mg/dL (8.5-10.3); CREATININE 0.8 mg/dL (0.4-1.0); POTASSIUM 2.9 mmol/L (3.5-5.0); TOTAL PROTEIN 7.7 g/dL (6.7-8.2)
[2021-01-21] MEDS ORDERED: HYDROmorphone 1 MG/ML CARPUJECT IVP STA (10:05)
--- NOTE | 2021-01-21 10:08 | ED Physician Documentation ---
History of Present Illness - Stated complaint Stated Complaint: NAUSEA/VOMITING - Chief complaint Chief Complaint: Abd Pain - History obtained from History obtained from: Patient - Additonal information Additional information: Patient comes emergency department chief complaint of nausea and vomiting for the last 3 days. She states that she has not had any other symptoms with this. No dysuria or cough. The patient on the 10th of this month had a revision of her left hip arthroplasty, which has been complicated since 2007 by recurrent bouts of osteomyelitis. The patient is currently on doxycycline for this. She states that she has not been running any fevers though she is occasionally had a chill. Her biggest concern is that she has not been able to hold either her seizure medication or her antibiotics down for the past 2 days. No other complaints at this time. Patient states she has had occasional clear fluid draining from her incision site, but that mostly, it seems to been doing well. She just had a postop visit with her orthopedist late last week, he felt it was healing well. Review of Systems Ten Systems: 10 systems reviewed and negative Constitutional: reports: Chills. denies: Fever, Myalgias Eyes: reports: Reviewed and negative Ears: reports: Reviewed and negative Nose: reports: Reviewed and negative Throat: reports: Reviewed and negative Cardiac: reports: Reviewed and negative Respiratory: reports: Reviewed and negative GI: reports: Nausea, Vomiting : reports: Reviewed and negative Skin: reports: Reviewed and negative Musculoskeletal: reports: Reviewed and negative Neurologic: reports: Reviewed and negative Psychiatric: reports: Reviewed and negative Endocrine: reports: Reviewed and negative Immunocompromised: reports: Reviewed and negative PD PAST MEDICAL HISTORY - Past Medical History Cardiovascular: Hypertension, High cholesterol Respiratory: Asthma, Pneumonia Neuro: TIA, Headaches, Migraines, Peripheral neuropathy, Seizure disorder, Other Endocrine/Autoimmune: HyPOthyroidism, Systemic lupus erythematosus GI: GERD, Ulcers, C.difficile, 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: 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 cancer : Incontinence, Chronic bladder infection, Renal insuffiency, Nocturia, Frequency, Kidney stones, Other HEENT: Chronic sinusitis Psych: Depression Musculoskeletal: Osteoarthritis, Osteoporosis, Fatigue, Chronic back pain, Other Derm: Psoriasis - Past Surgical History Past Surgical History: Yes General: Appendectomy Ortho: Hip replacement, Spine surgery /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: 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, Oophrectomy - Present Medications Home Medications: Ambulatory Orders Medication Instructions Recorded Confirmed Omeprazole [PriLOSEC] 20 mg PO BID 02/09/18 01/21/21 Phenytoin Sodium Extended 400 mg PO HS 03/16/18 01/21/21 Cetirizine [ZyrTEC] 10 mg PO DAILY 09/06/18 01/21/21 Melatonin 10 mg PO QPM PRN 09/06/18 01/21/21 diphenhydrAMINE [Benadryl] 25 mg PO DAILY PRN 09/14/18 01/21/21 Potassium Citrate [Potassium 40 meq PO QPM 04/09/19 01/21/21 Citrate ER] Spironolactone 50 mg PO BID 04/09/19 01/21/21 carvediloL [Carvedilol] 12.5 mg PO Q12H #60 tablet 04/11/19 01/21/21 Butalb/Acetaminophen/Caffeine 1 cap PO DAILY PRN 02/20/20 01/21/21 [Qugnzm-Jurxkxbw-Jlyh 50-300-40] Lasmiditan Succinate [Reyvow] 50 mg PO DAILY PRN 05/16/20 01/21/21 Ondansetron [Ondansetron Odt] 8 mg PO TID PRN 05/16/20 01/21/21 Prochlorperazine Maleate 10 mg PO QID PRN 05/16/20 01/21/21 [Compazine] Oxycodone HCl/Acetaminophen 1 tab PO Q4HR PRN 06/13/20 01/21/21 [Oxycodone-Acetaminophen 10-325] levETIRAcetam [Roweepra] 1,000 mg PO BID 06/13/20 01/21/21 Atorvastatin [Lipitor] 20 mg PO QPM 12/25/20 01/21/21 Cholecalciferol (Vitamin D3) 1,250 mcg PO .QWEEK 12/25/20 01/21/21 [Vitamin D3] Clobetasol 0.05% Oint [Temovate 1 appful TOP TID PRN 12/25/20 01/21/21 0.05% Oint] Desonide 1 appful TOP BID 12/25/20 01/21/21 Magnesium Citrate 100 mg PO DAILY 12/25/20 01/21/21 Pregabalin [Lyrica] 75 mg PO TID 12/25/20 01/21/21 methocarbamoL [Methocarbamol] 1,000 mg PO QID 12/25/20 01/21/21 Doxycycline Hyclate [Vibramycin] 1 tab PO BID 01/21/21 01/21/21 Ondansetron Odt [Zofran] 4 mg TL Q6H PRN #10 tablet 01/21/21 Prochlorperazine Maleate 10 mg PO Q4HR PRN #15 tab 01/21/21 [Compazine] oxyCODONE ER [OxyCONTIN] 2 tab PO Q4H 01/21/21 01/21/21 - Allergies Allergies/Adverse Reactions: Allergies Allergy/AdvReac Type Severity Reaction Status Date / Time Penicillins Allergy Severe Respiratory Verified 01/21/21 08:45 bacitracin Allergy Mild Hives Verified 01/21/21 08:45 [From Neosporin ([id number])] bacitracin zinc * Allergy Mild Itching Verified 01/21/21 08:45 [From Neosporin ([id number])] neomycin sulfate * Allergy Mild Itching Verified 01/21/21 08:45 [From Neosporin ([id number])] lamotrigine Allergy Itching Verified 01/21/21 08:45 venom-honey bee Allergy Unknown Verified 01/21/21 08:45 [bee venom (honey bee)] ciprofloxacin AdvReac Emesis Verified 01/21/21 08:45 - Social History Does the pt smoke?: No Smoking Status: Former smoker Does the pt drink ETOH?: No Does the pt have substance abuse?: No - Immunizations Immunizations are current?: Yes - POLST Patient has POLST: Yes POLST Status: DNR PD ED PE NORMAL - Vitals Vital signs reviewed: Yes - General General: Alert and oriented X 3, No acute distress, Well developed/nourished - HEENT HEENT: Atraumatic, PERRL, EOMI, Moist mucous membranes - Neck Neck: Supple, no meningeal sign - Cardiac Cardiac: RRR, No murmur - Respiratory Respiratory: No respiratory distress, Clear bilaterally - Abdomen Abdomen: Soft, Non distended, Other (Mild tenderness suprapubic region, no rebound or guarding.) - Derm Derm: Normal color, Warm and dry, No rash, Other (Vertical incision over left hip is clean dry and intact. Appears to be healing well. No associated erythema or induration. No fluctuance. 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, Normal speech - Psych Psych: Normal mood, Normal affect Results - Vitals Vitals: Vital Signs - 24 hr 01/21/21 01/21/21 01/21/21 08:45 10:42 12:19 Temperature 36.5 C Heart Rate 88 75 74 Respiratory 18 16 16 Rate Blood Pressure 185/103 H 122/75 169/101 H O2 Saturation 99 100 99 01/21/21 01/21/21 01/21/21 13:19 13:20 13:55 Temperature Heart Rate 85 81 87 Respiratory 14 16 12 Rate Blood Pressure 189/100 H 176/88 H O2 Saturation 100 98 01/21/21 01/21/21 01/21/21 14:32 14:35 14:38 Temperature Heart Rate 87 84 98 Respiratory 14 13 16 Rate Blood Pressure 174/75 H 171/93 H O2 Saturation 100 95 01/21/21 01/21/21 01/21/21 14:40 14:42 14:52 Temperature Heart Rate 94 100 74 Respiratory 13 22 10 L Rate Blood Pressure 134/74 H O2 Saturation 94 98 98 01/21/21 01/21/21 01/21/21 14:56 15:02 16:22 Temperature Heart Rate 78 78 81 Respiratory 19 21 19 Rate Blood Pressure 179/83 H O2 Saturation 100 100 99 01/21/21 01/21/21 01/21/21 16:30 16:45 17:00 Temperature Heart Rate 80 80 68 Respiratory 15 19 13 Rate Blood Pressure 158/83 H 177/97 H 162/87 H O2 Saturation 96 97 98 01/21/21 17:15 Temperature Heart Rate 79 Respiratory 17 Rate Blood Pressure 181/88 H O2 Saturation 97 Oxygen O2 Source Room air Oxygen Flow Rate 2 - Labs Labs: Microbiology 01/21/21 10:00 Blood Culture - Preliminary Blood - Left Iv Start Laboratory Tests 01/21/21 01/21/21 01/21/21 09:12 09:12 10:05 WBC 5.9 RBC 4.33 Hgb 12.8 Hct 40.2 MCV 92.8 MCH 29.6 MCHC 31.8 L RDW 15.9 H Plt Count 567 H MPV 9.2 Neut # (Auto) 3.7 Lymph # (Auto) 1.5 [place] # (Auto) 0.5 Eos # (Auto) 0.2 Baso # (Auto) 0.1 Absolute Nucleated RBC 0.00 Nucleated RBC % 0.0 Sodium 136 Potassium 2.9 L Chloride 100 L Carbon Dioxide 21 Anion Gap 15.0 H BUN 15 Creatinine 0.8 Estimated GFR (MDRD) 74 L Glucose 135 H Calcium 9.2 Total Bilirubin 0.8 AST 24 ALT 15 Alkaline Phosphatase 316 H Total Protein 7.7 Albumin 4.2 Globulin 3.5 Albumin/Globulin Ratio 1.2 Lipase 22 Phenytoin < 2.5 - Rads (name of study) L hip/pelvis XR Radiology: Final report received, EMP read indepedently, See rad report (prosthetic hip, dislocation) Pelvis XR Radiology: Final report received, EMP read indepedently, See rad report (reduced hip in good placement) CXR Radiology: Final report received, EMP read indepedently, See rad report (line in good placement) Procedures - Reduction Body part reduced: Left, Hip, prosthetic Fracture or dislocation: Dislocation Anesthesia: Propofol Hip reduction technique: Allis - flex/pull/rotate Reduction aftercare: NV intact, Xray confirms reduction, Alignment improved, Patient tolerated well - Procedural sedation Sedation prep: Informed consent, ASA 2 - mild disease Sedation medications: propofol, given by MD Patient status during sedation: Responds to tactile (to noxious stimuli only), Vitals remained stable, Maintained airway, Recovered uneventfully Sedation recovery: Recovered uneventfully Time in sedation (Minutes): 10 PD MEDICAL DECISION MAKING - ED course Complexity details: reviewed results, re-evaluated patient, considered differential, d/w patient ED course: IV fluids, Zofran, and Dilaudid were ordered initially, and pt was worked up for her symptoms. Unfortunately, though 2 peripheral IVs were obtained, both i nfiltrated. Patient had extremely poor peripheral access, and despite multiple attempts by nursing staff, further access was unable to be gained. As such, anesthesia was called to place a line with ultrasound guidance. They made multiple attempts but were unable to get a peripheral line and so ultimately, ended up putting in a intrajugular line on the right. Once this was found to be in good placement, patient was able to get her IV fluids. She reported that the Zofran had not helped her nausea and so during the IV attempts, was given IM Compazine which did seem to help. Prior to gaining IV access via central line, I was called into the room by the nurse because patient had discovered her left foot to be externally rotated and had a pain in her hip and was unable to flex her knee. I suspected a dislocation of the prosthetic hip and x-ray did confirm this. I attempted to reach Dr. Mckinnon, the pt's orthopedist, or somebody covering for him, but there is no actual person to speak to with the answering service, but only a messaging system. Because I could not get a hold of the patient's surgeon or anybody from his group, I opted to call our on-call orthopedist, Dr. Fuentes, instead, to confirm that it would be okay to attempt reduction in the emergency department on the 3-week postop hip. Dr. Fuentes did state that there should not be an issue with this and to go ahead. Now that we had IV access via central line, I did go ahead and consent the patient for the sedation and reduction, and this was performed without incident, as above. X-ray did confirm reduction of the hip. The patient after awakening from sedation, was feeling much better and so I did have her take her potassium and Keppra by mouth. The patient's Dilantin level was completely negative, so I went ahead and gave the patient a gram of Dilantin IV. The patient was deemed stable for discharge home. She has already been counseled regarding positions to avoid with her left leg, which would put her at risk for dislocation of the prosthesis. She also has a wedge pillow at home. We have discussed home management of symptoms, the need for follow-up, and the usual indications for return. I have also counseled her regarding not driving, operating any heavy machinery, or making any important decisions in the next 24 hours after sedation Departure - Departure Disposition: 01 Home, Self Care Clinical Impression: Subtherapeutic serum dilantin level Vomiting Qualifiers: Vomiting type: bilious vomiting Nausea presence: with nausea Qualified Code(s): R11.14 - Bilious vomiting Hip dislocation, left Qualifiers: Encounter type: initial encounter Qualified Code(s): S73.005A - Unspecified dislocation of left hip, initial encounter Condition: Stable Instructions: ED Nausea Vomiting, ED Hip Replace Dislocation Reduc Prescriptions: Prochlorperazine Maleate [Compazine] 10 mg PO Q4HR PRN #15 tab PRN Reason: Nausea / Vomiting Ondansetron Odt [Zofran] 4 mg TL Q6H PRN #10 tablet PRN Reason: Nausea / Vomiting Comments: You have been treated with antinausea medicine, IV fluids, and potassium today, as well as both of your seizure medications. Your hip was put back in place under sedation, and although he will most likely will not be driving anyway, you should specifically avoid driving, operating heavy machinery, or making any important decisions for the next 24 hours. You should avoid the movements that make your hip prone to dislocate, as instructed by orthopedics. You may take the nausea medication as needed and should get back on your regular medications. Please follow-up with orthopedics for any further concerns regarding your hip. Discharge Date/Time: 01/21/21 17:57
--- NOTE | 2021-01-21 11:19 | XRAY Report ---
PROCEDURE: Hip w/Pelvis 2-3V LT INDICATIONS: turned leg, now pain/can't move TECHNIQUE: AP pelvis with lateral view(s) of the left hip(s). COMPARISON: 06/12/2020 FINDINGS: Bones: Left hip arthroplasty hardware is seen. The left prosthetic hip is dislocated superiorly in r elation to the prosthetic acetabular cup. No underlying acute fracture can be seen. Since the prior examination dated 06/12/2020, a metallic prosthetic acetabular cup has been placed. Lumbosacral fixation hardware is seen. Pelvic ring appears intact. No suspicious bony lesions. Soft tissues: The visualized bowel gas pattern is normal. No suspicious soft tissue calcifications. IMPRESSION: Left prosthetic hip dislocation. Reviewed by: Albino Shetty MD on 01/21/2021 10:17 AM AUGIE Approved by: Albino Shetty MD on 01/21/2021 10:17 AM AUGIE Station ID: [id number]
[2021-01-21] MEDS ORDERED: PROCHLORPERAZINE 10 MG/2 ML VIAL IM STA (13:38)
[2021-01-21] MEDS ORDERED: PROPOFOL 200 MG/20 ML VIAL IVP STA (14:20)
--- NOTE | 2021-01-21 14:21 | ANESTHESIA PROCEDURE NOTE ---
Anesth Central Line Template - Central Line Central Line Preparation: Consent Obtained, Time out completed, Ultrasound used, Sterile prep and drape Central line location: Right IJ Central line type: Triple lumen Central line catheter tip site resides: Superior vena cava (SVC) Central line aftercare: Secured, Placement confirmed, No pneumothorax, No complications, Bundle checklist complete, Pt tolerated well (attempted PIV x 4. Discussed with patient, RN and Physician to proceed with Central line.)
[2021-01-21] MEDS ORDERED: PROPOFOL 200 MG/20 ML VIAL IVP ONE (14:40)
--- NOTE | 2021-01-21 14:57 | XRAY Report ---
PROCEDURE: Chest for Line Placement INDICATIONS: central line placement TECHNIQUE: One view of the chest was acquired. COMPARISON: 12/24/2020. 02/19/2020 FINDINGS: Surgical changes and devices: A right-sided central line is seen, with the tip overlying the inferior aspect of the superior vena cava, at the cavoatrial junction. Lungs and pleura: On the supine study, no large pneumothorax or large pleural effusions can be seen. No focal infiltrates are detected. Mediastinum: Mediastinal contours appear normal. Heart size is normal. Bones and chest wall: No suspicious bony lesions. Overlying soft tissues appear unremarkable. IMPRESSION: The tip of the right-sided central line is seen overlying the inferior aspect of the superior vena ca va. Reviewed by: Albino Shetty MD on 01/21/2021 1:56 PM AUGIE Approved by: Albino Shetty MD on 01/21/2021 1:56 PM AUGIE Station ID: [id number]
[2021-01-21] MEDS ORDERED: levETIRAcetam 250 MG TABLET PO STA (15:05)
[2021-01-21] MEDS ORDERED: POTASSIUM CHLORIDE 20 MEQ TABLET PO STA (15:05)
[2021-01-21] MEDS ORDERED: PHENYTOIN IV STA (15:06)
[2021-01-21] MEDS ORDERED: SODIUM CHLORIDE 0.9% IV STA (15:06)
--- NOTE | 2021-01-21 15:10 | XRAY Report ---
PROCEDURE: Pelvis 1 View INDICATIONS: Lt hip post-reduction TECHNIQUE: 1 view(s) of the pelvis acquired. COMPARISON: Earlier in the day on 01/21/2021 FINDINGS: Bones: The previously seen left hip prosthesis dislocation is not relocated. No underlying fracture can be seen. No suspicious bony lesions. L5-S1 postoperative change. Soft tissues: Visualized bowel gas pattern is normal. No suspicious soft tissue calcifications. IMPRESSION: Left prosthetic hip relocation. Reviewed by: Albino Shetty MD on 01/21/2021 2:08 PM AUGIE Approved by: Albino Shetty MD on 01/21/2021 2:08 PM AUGIE Station ID: [id number]
[2021-01-21] MEDS ORDERED: PHENYTOIN INJ 1,000 MG in SODIUM CHLORIDE 0.9% 100ML 100 ML IV STA (15:18)
[2021-01-21 17:21] VITALS: BP 181/88
[2021-01-21] MEDS ORDERED: oxyCODONE 5 MG TABLET PO STA (17:41)
== END 2021-01-21 17:57 | disposition home or self-care (01) ==
LOC: ED 08:36
DX: R11.14 Bilious vomiting (principal); T84.021A Dislocation of internal left hip prosthesis, initial encounter; Y83.1 Surgical operation with implant of artificial internal device as the cause of abnormal reaction of the patient, or of later complication, without mention of misadventure at the time of the procedure; T80.89XA Other complications following infusion, transfusion and therapeutic injection, initial encounter; Y84.8 Other medical procedures as the cause of abnormal reaction of the patient, or of later complication, without mention of misadventure at the time of the procedure; Y92.238 Other place in hospital as the place of occurrence of the external cause; R79.89 Other specified abnormal findings of blood chemistry; G40.909 Epilepsy, unspecified, not intractable, without status epilepticus; M32.9 Systemic lupus erythematosus, unspecified; I10 Essential (primary) hypertension; Z87.891 Personal history of nicotine dependence; Z66 Do not resuscitate
CPT/HCPCS: 27265; 36415; 71045; 72170; 73502; 80053; 80185; 83690; 85025; 87040; 87150; 87181; 96365; 96372; 96375; 96376; 99152; 99283; 99285; A9270; J1170; 94770; 99151

== ENCOUNTER 2021-02-04 12:34 | Emergency (ER) | payer MEDICARE, MEDICAID ==
--- OUTSIDE RECORDS SUMMARY | 2021-02-04 12:40 | EXTERNAL MEDICAL SUMMARY RPT | Continuity of Care Document ---
:1965 Demographics Phone Unavailable Preferred Language Unknown Marital Status Unknown Lutheran Affiliation Unknown Race Unknown Ethnic Group Unknown Author Organization [facility] Address [address] [id number] Phone Allergies Encounters Medications Problems Results
--- NOTE | 2021-02-04 13:16 | ED Physician Documentation ---
History of Present Illness - Stated complaint Stated Complaint: BLOODWORK - Chief complaint Chief Complaint: General - History obtained from History obtained from: Patient - Additonal information Additional information: 55-year-old woman has had a long history of issues with osteomyelitis of the left hip. She was seen here about 2 weeks ago and had blood cultures drawn. One of the 2 cultures became positive for staph epidermidis. Subsequently she was called and it sounds like there were some mixed messages and her understanding was that both cultures were positive for MRSA. She called her in fectious disease specialist who advised she can here for IV antibiotics. She is had no fevers. No increase in her hip pain. Review of Systems Constitutional: reports: Sweats. 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 : Incontinence, Chronic bladder infection, Renal insuffiency, Nocturia, Freque ncy, Kidney stones, Other HEENT: Chronic sinusitis Psych: Depression Musculoskeletal: Osteoarthritis, Osteoporosis, Fatigue, Chronic back pain, Other Derm: Psoriasis - Past Surgical History Past Surgical History: Yes General: Appendectomy Ortho: Hip replacement, Spine surgery /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, Oophrectomy - Present Medications Home Medications: Ambulatory Orders Medication Instructions Recorded Confirmed Omeprazole [PriLOSEC] 20 mg PO BID 02/09/18 01/21/21 Phenytoin Sodium Extended 400 mg PO HS 03/16/18 01/21/21 Cetirizine [ZyrTEC] 10 mg PO DAILY 09/06/18 01/21/21 Melatonin 10 mg PO QPM PRN 09/06/18 01/21/21 diphenhydrAMINE [Benadryl] 25 mg PO DAILY PRN 09/14/18 01/21/21 Potassium Citrate [Potassium 40 meq PO QPM 04/09/19 01/21/21 Citrate ER] Spironolactone 50 mg PO BID 04/09/19 01/21/21 carvediloL [Carvedilol] 12.5 mg PO Q12H #60 tablet 04/11/19 01/21/21 Butalb/Acetaminophen/Caffeine 1 cap PO DAILY PRN 02/20/20 01/21/21 [Uheduu-Zosfzffn-Xcfa 50-300-40] Lasmiditan Succinate [Reyvow] 50 mg PO DAILY PRN 05/16/20 01/21/21 Ondansetron [Ondansetron Odt] 8 mg PO TID PRN 05/16/20 01/21/21 Prochlorperazine Maleate 10 mg PO QID PRN 05/16/20 01/21/21 [Compazine] Oxycodone HCl/Acetaminophen 1 tab PO Q4HR PRN 06/13/20 01/21/21 [Oxycodone-Acetaminophen 10-325] levETIRAcetam [Roweepra] 1,000 mg PO BID 06/13/20 01/21/21 Atorvastatin [Lipitor] 20 mg PO QPM 12/25/20 01/21/21 Cholecalciferol (Vitamin D3) 1,250 mcg PO .QWEEK 12/25/20 01/21/21 [Vitamin D3] Clobetasol 0.05% Oint [Temovate 1 appful TOP TID PRN 12/25/20 01/21/21 0.05% Oint] Desonide 1 appful TOP BID 12/25/20 01/21/21 Magnesium Citrate 100 mg PO DAILY 12/25/20 01/21/21 Pregabalin [Lyrica] 75 mg PO TID 12/25/20 01/21/21 methocarbamoL [Methocarbamol] 1,000 mg PO QID 12/25/20 01/21/21 Doxycycline Hyclate [Vibramycin] 1 tab PO BID 01/21/21 01/21/21 Ondansetron Odt [Zofran] 4 mg TL Q6H PRN #10 tablet 01/21/21 Prochlorperazine Maleate 10 mg PO Q4HR PRN #15 tab 01/21/21 [Compazine] oxyCODONE ER [OxyCONTIN] 2 tab PO Q4H 01/21/21 01/21/21 - Allergies Allergies/Adverse Reactions: Allergies Allergy/AdvReac Type Severity Reaction Status Date / Time Penicillins Allergy Severe Respiratory Verified 02/04/21 12:52 bacitracin Allergy Mild Hives Verified 02/04/21 12:52 [From Neosporin ([id number])] bacitracin zinc * Allergy Mild Itching Verified 02/04/21 12:52 [From Neosporin ([id number])] neomycin sulfate * Allergy Mild Itching Verified 02/04/21 12:52 [From Neosporin ([id number]-[id number])] lamotrigine Allergy Itching Verified 02/04/21 12:52 venom-honey bee Allergy Unknown Verified 02/04/21 12:52 [bee venom (honey bee)] ciprofloxacin AdvReac Emesis Verified 02/04/21 12:52 - Social History Does the pt smoke?: No Smoking Status: Never smoker Does the pt drink ETOH?: No Does the pt have substance abuse?: No - Immunizations Immunizations are current?: Yes - POLST Patient has POLST: Yes POLST Status: DNR PD ED PE NORMAL - Vitals Vital signs reviewed: Yes - General General: Alert and oriented X 3, No acute distress - HEENT HEENT: PERRL, EOMI - Neck Neck: Supple, no meningeal sign, No bony TTP - Neuro Neuro: Alert and oriented X 3, Normal speech - Psych Psych: Normal mood, Normal affect Results - Vitals Vitals: Vital Signs - 24 hr 02/04/21 12:47 Temperature 36.5 C Heart Rate 76 Respiratory 16 Rate Blood Pressure 129/83 H O2 Saturation 99 Oxygen O2 Source Room air PD MEDICAL DECISION MAKING - ED course ED course: The previous cultures were reviewed, she had 1 of 2 cultures positive for staph epidermidis. No cultures positive for MRSA. I discussed this with her infectious disease specialist, Dr. Cornejo by phone, his phone number is [phone]. With the understanding of the actual results he asked us to simply reculture her and then discharge pending results since it is likely that the blood culture was a contaminant. Departure - Departure Disposition: 01 Home, Self Care Clinical Impression: Osteomyelitis hip, History of MRSA infection Condition: Good Record reviewed to determine appropriate education?: Yes Comments: As discussed, most likely having a single positive blood culture for staph epidermidis is a contaminant from skin. We have performed 2 more blood cultures today, if positive we will call you back for IV antibiotics but given the overall circumstance I think this is unlikely. Return if worsening. Dr. Cornejo said his office would reschedule your
--- OUTSIDE RECORDS SUMMARY | 2021-02-04 13:20 | EXTERNAL MEDICAL SUMMARY RPT | Continuity of Care Document ---
:1965 Demographics Phone Unavailable Preferred Language Unknown Marital Status Unknown Tenriism Affiliation Unknown Race Unknown Ethnic Group Unknown Author Organization [facility] Address [address] [phone] Phone Allergies Encounters Medications Problems Results
[2021-02-04 14:29] VITALS: BP 112/69
== END 2021-02-04 14:34 | disposition home or self-care (01) ==
LOC: ED 12:34
DX: M86.68 Other chronic osteomyelitis, other site (principal); Z86.14 Personal history of Methicillin resistant Staphylococcus aureus infection; I10 Essential (primary) hypertension; M32.9 Systemic lupus erythematosus, unspecified; Z88.1 Allergy status to other antibiotic agents; Z88.0 Allergy status to penicillin; Z66 Do not resuscitate
CPT/HCPCS: 87040; 99283

== ENCOUNTER 2021-03-11 08:27 | Outpatient (CLI) | payer MEDICARE, MEDICAID | END 2021-03-11 08:28 | disposition critical access hospital (66) | LOC: EMS 08:27 | DX: M25.552 Pain in left hip (principal); R11.2 Nausea with vomiting, unspecified | CPT/HCPCS: A0425; A0427 ==

== ENCOUNTER 2021-03-11 08:41 | Emergency (ER) | payer MEDICARE, MEDICAID ==
[2021-03-11] MEDS: HYDROmorphone 1 MG/ML CARPUJECT IVP STA ×3 (08:58→10:56)
--- NOTE | 2021-03-11 09:22 | XRAY Report ---
PROCEDURE: Hip w/Pelvis 2-3V LT INDICATIONS: hip dislocation TECHNIQUE: AP pelvis with lateral view(s) of the left hip(s). COMPARISON: 01/21/2021. FINDINGS: Bones: Patient is status post left total hip arthroplasty. There is superior and lateral dislocation of left femoral prosthesis in relation to the acetabular component. No gross acute fracture is seen. Pelvic ring appears intact. No suspicious bony lesions. Soft tissues: The visualized bowel gas pattern is normal. No suspicious soft tissue calcifications. IMPRESSION: Recurrent superolateral dislocation of left hip prosthesis as above. No gross acute fract ure is seen. Reviewed by: Sameer Ghosh MD on 03/11/2021 9:21 AM PDT Approved by: Sameer Ghosh MD on 03/11/2021 9:21 AM PDT Station ID: [id number]
--- NOTE | 2021-03-11 09:43 | ED Physician Documentation ---
PD HPI LOWER EXT INJURY - Stated complaint Stated Complaint: HIP DISLOCATION - Chief complaint Chief Complaint: Ext Problem - History obtained from History obtained from: Patient, EMS - History of Present Illness PD HPI LOW EXT INJURY LOCATION: Left, Hip Type of injury: Other (she was starting to get up out of bed and felt her left hip pop and have pain, c/w prior dislocations of her hip. This is third time of dislocation since her surgery in early December. Does not have abduction brace at home.). 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 SPECIALIST: Ovarian cancer : Incontinence, Chronic bladder infection, Renal insuffiency, Nocturia, Frequency, Kidney stones, Other HEENT: Chronic sinusitis Psych: Depression Musculoskeletal: Osteoarthritis, Osteoporosis, Fatigue, Chronic back pain, Other Derm: Psoriasis - Past Surgical History Past Surgical History: Yes General: Appendectomy Ortho: Hip replacement, Spine surgery /PSYCHIATRIC SPECIALIST: 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, Oophrectomy - Present Medications Home Medications: Ambulatory Orders Medication Instructions Recorded Confirmed Omeprazole [PriLOSEC] 20 mg PO BID 02/09/18 03/11/21 Phenytoin Sodium Extended 400 mg PO HS 03/16/18 03/11/21 Cetirizine [ZyrTEC] 10 mg PO DAILY 09/06/18 03/11/21 Melatonin 10 mg PO QPM PRN 09/06/18 03/11/21 diphenhydrAMINE [Benadryl] 25 mg PO DAILY PRN 09/14/18 03/11/21 Potassium Citrate [Potassium 40 meq PO QPM 04/09/19 03/11/21 Citrate ER] Spironolactone 50 mg PO BID 04/09/19 03/11/21 Butalb/Acetaminophen/Caffeine 1 cap PO DAILY PRN 02/20/20 03/11/21 [Jskupf-Nemmuqvm-Rghr 50-300-40] Lasmiditan Succinate [Reyvow] 50 mg PO DAILY PRN 05/16/20 03/11/21 Ondansetron [Ondansetron Odt] 8 mg PO TID PRN 05/16/20 03/11/21 Prochlorperazine Maleate 10 mg PO QID PRN 05/16/20 03/11/21 [Compazine] Oxycodone HCl/Acetaminophen 1 tab PO Q4HR PRN 06/13/20 03/11/21 [Oxycodone-Acetaminophen 10-325] levETIRAcetam [Roweepra] 1,000 mg PO BID 06/13/20 03/11/21 Atorvastatin [Lipitor] 20 mg PO QPM 12/25/20 03/11/21 Cholecalciferol (Vitamin D3) 1,250 mcg PO .QWEEK 12/25/20 03/11/21 [Vitamin D3] Clobetasol 0.05% Oint [Temovate 1 appful TOP TID PRN 12/25/20 03/11/21 0.05% Oint] Desonide 1 appful TOP BID 12/25/20 03/11/21 Magnesium Citrate 100 mg PO DAILY 12/25/20 03/11/21 Pregabalin [Lyrica] 75 mg PO TID 12/25/20 03/11/21 methocarbamoL [Methocarbamol] 1,000 mg PO QID 12/25/20 03/11/21 Ondansetron Odt [Zofran] 4 mg TL Q6H PRN #10 tablet 01/21/21 03/11/21 Prochlorperazine Maleate 10 mg PO Q4HR PRN #15 tab 01/21/21 03/11/21 [Compazine] carvediloL [Carvedilol] 25 mg PO Q12H 03/11/21 03/11/21 - Allergies Allergies/Adverse Reactions: Allergies Allergy/AdvReac Type Severity Reaction Status Date / Time Penicillins Allergy Severe Respiratory Verified 03/11/21 08:53 bacitracin Allergy Mild Hives Verified 03/11/21 08:53 [From Neosporin ([id number])] bacitracin zinc * Allergy Mild Itching Verified 03/11/21 08:53 [From Neosporin ([id number])] neomycin sulfate * Allergy Mild Itching Verified 03/11/21 08:53 [From Neosporin ([id number]-[id number]-hzcut)] lamotrigine Allergy Itching Verified 03/11/21 08:53 venom-honey bee Allergy Unknown Verified 03/11/21 08:53 [bee venom (honey bee)] ciprofloxacin AdvReac Emesis Verified 03/11/21 08:53 - Social History Does the pt smoke?: No Smoking Status: Former smoker Does the pt drink ETOH?: No Does the pt have substance abuse?: No - Immunizations Immunizations are current?: Yes - POLST Patient has POLST: Yes POLST Status: DNR PD ED PE NORMAL - Vitals Vital signs reviewed: Yes - General General: Alert and oriented X 3, Well developed/nourished, Other (appears in pain due to left hip. Pain worse with any ROM. ) - HEENT HEENT: Pharynx benign (can open mouth wide and I can see tonsils well. ) - Neck Neck: Supple, no meningeal sign, No adenopathy - Cardiac Cardiac: RRR, No murmur - Respiratory Respiratory: Clear bilaterally - Abdomen Abdomen: Soft, Non tender - Derm Derm: Normal color, Warm and dry - Extremities Extremities: Other (left hip with pain and exacerbated by any slight ROM. ) - Neuro Neuro: Alert and oriented X 3, No motor deficit, No sensory deficit, Normal speech Results - Vitals Vitals: Vital Signs - 24 hr 03/11/21 03/11/21 03/11/21 08:42 09:22 09:47 Temperature 36.8 C Heart Rate 94 90 83 Respiratory 16 16 23 Rate Blood Pressure 166/124 H 195/112 H 178/99 H O2 Saturation 96 96 97 03/11/21 03/11/21 03/11/21 09:57 10:02 10:05 Temperature Heart Rate 87 86 87 Respiratory 13 17 13 Rate Blood Pressure 169/87 H 160/120 H 160/120 H O2 Saturation 97 95 98 03/11/21 03/11/21 03/11/21 10:11 10:14 10:19 Temperature Heart Rate 87 90 84 Respiratory 15 15 19 Rate Blood Pressure 120/92 H 120/92 H 129/87 H O2 Saturation 100 96 95 03/11/21 03/11/21 03/11/21 10:28 10:54 10:57 Temperature Heart Rate 88 106 H 94 Respiratory 18 20 18 Rate Blood Pressure 143/86 H 157/106 H 167/98 H O2 Saturation 94 100 99 03/11/21 03/11/21 03/11/21 11:26 11:31 12:17 Temperature Heart Rate 77 112 H 80 Respiratory 14 15 16 Rate Blood Pressure 121/80 149/94 H O2 Saturation 100 95 Oxygen O2 Source Nasal cannula - Rads (name of study) left hip xray Radiology: Prelim report reviewed (posterior dislocation; no fractures.), See rad report post reduction Radiology: Prelim report reviewed (relocated), See rad report Procedures - Reduction Body part reduced: Left, Hip, prosthetic Fracture or dislocation: Dislocation Anesthesia: Conscious sedation, Propofol Hip reduction technique: Fulcrum Reduction aftercare: NV intact, Xray confirms reduction, Alignment improved, Patient tolerated well (abduction block placed after the reduction.) - Procedural sedation Sedation prep: Informed consent, Time out completed, ASA 2 - mild disease, Other (able to open mouth widely and I can see tonsils.) Sedation medications: propofol, given by MD Patient status during sedation: Alert PD MEDICAL DECISION MAKING - ED course Complexity details: reviewed results, re-evaluated patient (she says she is having more pain in hip than with prior reductions. Repeat xray to ensure did not re-dislocate but still in good position. ), considered differential, d/w patient Departure - Departure Disposition: 01 Home, Self Care Clinical Impression: Recurrent dislocation of hip joint prosthesis Qualifiers: Encounter type: initial encounter Qualified Code(s): T84.029A - Dislocation of unspecified internal joint prosthesis, initial encounter Condition: Stable Record reviewed to determine appropriate education?: Yes Instructions: ED Hip Replace Dislocation Reduc Follow-Up: Tai Mckinnon MD [Physician No Access] - Comments: Continue usual medications. Use your abductor support when rested or laying down. Contact your orthopedist Dr. Mckinnon regarding the recurrent dislocation and arrange follow-up per their direction. I will try to call him when he calls back later today when he becomes available. Discharge Date/Time: 03/11/21 11:52
[2021-03-11] MEDS: PROPOFOL 200 MG/20 ML VIAL IVP STA (09:58)
--- NOTE | 2021-03-11 10:28 | XRAY Report ---
PROCEDURE: Pelvis 1 View INDICATIONS: POST REDUCTION HIP DISLOCATION TECHNIQUE: 1 view(s) of the pelvis acquired. COMPARISON: None. FINDINGS: Bones: There is normal association of the left femoral component and acetabular component of the left hip arthroplasty compatible with dislocation reduction. Soft tissues: Visualized bowel gas pattern is normal. No suspicious soft tissue calcifications. IMPRESSION: Status post reduction of left hip arthroplasty prosthesis dislocation. Reviewed by: Tarsha oGnzales MD, PhD on 03/11/2021 10:26 AM PDT Approved by: Tarsha Gonzales MD, PhD on 03/11/2021 10:26 AM PDT Station ID: [id number]
[2021-03-11] MEDS: KETOROLAC 15 MG/ML VIAL IVP STA (10:51)
[2021-03-11] MEDS: DROPERIDOL 5 MG/2 ML VIAL IVP STA (11:05)
--- NOTE | 2021-03-11 11:25 | XRAY Report ---
PROCEDURE: Pelvis 1 View INDICATIONS: PAIN AGAIN AFTER REDUCTION TECHNIQUE: 1 view(s) of the pelvis acquired. COMPARISON: 03/11/2021 hip with pelvis 3 views left same day. Also, multiple prior left hip plain amber ms over the prior 2 years were reviewed.. FINDINGS: Bones: Successful reduction of left total hip arthroplasty dislocation and a definite [place] bone fra cture is not seen. There is poor visualization of much of the proximal femoral osseous margins, poten tially involved with ostial lysis at the intertrochanteric and proximal femoral medullary bone, as ca n be faintly seen on prior plain film imaging through these areas.. No suspicious bony lesions. Soft tissues: Visualized bowel gas pattern is normal. No suspicious soft tissue calcifications. IMPRESSION: The left hip arthroplasty dislocation has been reduced and remains reduced, but the poor visualization of the osseous margins at the proximal femur and intertrochanteric region would render accurate assessment of nondisplaced fracture very limited. It is not possible to entirely exclude os tial lysis from infection or tumor in that area. Please also note that at the lateral femoral cortex at the mid shaft level there is a possible osteolytic lesion seen from the study that includes that a joseph earlier today. Reviewed by: Odell Loza MD on 03/11/2021 11:24 AM PDT Approved by: Odell Loza MD on 03/11/2021 11:24 AM PDT Station ID: [id number]
[2021-03-11 11:32] VITALS: BP 149/94
== END 2021-03-11 11:52 | disposition home or self-care (01) ==
LOC: EDUNIT# → ED 08:41
DX: T84.021A Dislocation of internal left hip prosthesis, initial encounter (principal); Y83.1 Surgical operation with implant of artificial internal device as the cause of abnormal reaction of the patient, or of later complication, without mention of misadventure at the time of the procedure; Y92.003 Bedroom of unspecified non-institutional (private) residence as the place of occurrence of the external cause; I10 Essential (primary) hypertension; M32.9 Systemic lupus erythematosus, unspecified; Z87.891 Personal history of nicotine dependence; Z66 Do not resuscitate
CPT/HCPCS: 27266; 72170; 73502; 96374; 96375; 96376; 99152; 99284; 99285; J1170; 94770

== ENCOUNTER 2021-03-12 20:19 | Outpatient (CLI) | payer MEDICARE, MEDICAID | END 2021-03-12 20:20 | disposition critical access hospital (66) | LOC: EMS 20:19 | DX: R56.9 Unspecified convulsions (principal) | CPT/HCPCS: A0425; A0429 ==

== ENCOUNTER 2021-03-12 20:34 | Emergency (ER) | payer MEDICARE, MEDICAID ==
--- NOTE | 2021-03-12 21:11 | ED Physician Documentation ---
History of Present Illness - Stated complaint Stated Complaint: SEIZURE - Chief complaint Chief Complaint: Neuro - History obtained from History obtained from: Patient - Additonal information Additional information: 56-year-old woman with history of seizure disorder, chronic left hip osteomyelitis status post surgery in December, with recent dislocation yesterday status post relocation, presents with persistent nausea and vomiting since discharge, generalized pain in the hip, and a seizure about 2 hours prior to arrival. Patient states she did not completely lose consciousness but felt fuzzy afterwards and now her legs are shaking. She is taking her Keppra 1 g twice daily and Dilantin 400 every evening faithfully. Denies fever, diarrhea, tongue biting, urinary or fecal incontinence, or other concerns. She does c/o cloudy urine and suprapubic pain with urination. Review of Systems Ten Systems: 10 systems reviewed and negative Constitutional: denies: Fever, Chills GI: reports: Nausea, Vomiting. 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: Ovarian cancer : Incontinence, Chronic bladder infection, Renal insuffiency, Nocturia, Frequency, Kidney stones, Other HEENT: Chronic sinusitis Psych: Depression Musculoskeletal: Osteoarthritis, Osteoporosis, Fatigue, Chronic back pain, Other Derm: Psoriasis - Past Surgical History Past Surgical History: Yes General: Appendectomy Ortho: Hip replacement, Spine surgery /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: 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, Oophrectomy - Present Medications Home Medications: Ambulatory Orders Medication Instructions Recorded Confirmed Omeprazole [PriLOSEC] 20 mg PO BID 02/09/18 03/12/21 Phenytoin Sodium Extended 400 mg PO HS 03/16/18 03/12/21 Cetirizine [ZyrTEC] 10 mg PO DAILY 09/06/18 03/12/21 Melatonin 10 mg PO QPM PRN 09/06/18 03/12/21 diphenhydrAMINE [Benadryl] 25 mg PO DAILY PRN 09/14/18 03/12/21 Spironolactone 50 mg PO BID 04/09/19 03/12/21 Butalb/Acetaminophen/Caffeine 1 cap PO DAILY PRN 02/20/20 03/12/21 [Gwkmga-Cmunxdrp-Rniw 50-300-40] Lasmiditan Succinate [Reyvow] 50 mg PO DAILY PRN 05/16/20 03/12/21 Ondansetron [Ondansetron Odt] 8 mg PO TID PRN 05/16/20 03/12/21 Oxycodone HCl/Acetaminophen 1 tab PO Q4HR PRN 06/13/20 03/12/21 [Oxycodone-Acetaminophen 10-325] levETIRAcetam [Roweepra] 1,000 mg PO BID 06/13/20 03/12/21 Atorvastatin [Lipitor] 20 mg PO QPM 12/25/20 03/12/21 Cholecalciferol (Vitamin D3) 1,250 mcg PO .QWEEK 12/25/20 03/12/21 [Vitamin D3] Clobetasol 0.05% Oint [Temovate 1 appful TOP TID PRN 12/25/20 03/12/21 0.05% Oint] Desonide 1 appful TOP BID 12/25/20 03/12/21 Magnesium Citrate 100 mg PO DAILY 12/25/20 03/12/21 Pregabalin [Lyrica] 75 mg PO TID 12/25/20 03/12/21 methocarbamoL [Methocarbamol] 1,000 mg PO QID 12/25/20 03/12/21 Prochlorperazine Maleate 10 mg PO Q4HR PRN #15 tab 01/21/21 03/12/21 [Compazine] carvediloL [Carvedilol] 25 mg PO Q12H 03/11/21 03/12/21 Nitrofurantoin [Macrobid] 100 mg PO BID 5 Days #10 tab 03/12/21 Promethazine Supp [Phenergan Supp] 25 mg FL Q4H PRN #10 supp 03/12/21 - Allergies Allergies/Adverse Reactions: Allergies Allergy/AdvReac Type Severity Reaction Status Date / Time Penicillins Allergy Severe Respiratory Verified 03/12/21 20:47 bacitracin Allergy Mild Hives Verified 03/12/21 20:47 [From Neosporin ([id number])] bacitracin zinc * Allergy Mild Itching Verified 03/12/21 20:47 [From Neosporin ([id number])] neomycin sulfate * Allergy Mild Itching Verified 03/12/21 20:47 [From Neosporin ([id number]-vul-igdyz)] lamotrigine Allergy Itching Verified 03/12/21 20:47 venom-honey bee Allergy Unknown Verified 03/12/21 20:47 [bee venom (honey bee)] ciprofloxacin AdvReac Emesis Verified 03/12/21 20:47 - Social History Does the pt smoke?: No Smoking Status: Former smoker Does the pt drink ETOH?: No Does the pt have substance abuse?: No - Immunizations Immunizations are current?: Yes - POLST Patient has POLST: Yes POLST Status: DNR PD ED PE NORMAL - Vitals Vital signs reviewed: Yes - General General: Alert and oriented X 3, No acute distress, Well developed/nourished - HEENT HEENT: Atraumatic - Neck Neck: Supple, no meningeal sign - Cardiac Cardiac: RRR - Respiratory Respiratory: No respiratory distress, Clear bilaterally - Abdomen Abdomen: Non tender, Non distended - Derm Derm: Normal color, Warm and dry - Extremities Extremities: No deformity, Other (2+ DP pulses) - Neuro Neuro: Alert and oriented X 3 - Psych Psych: Normal mood, Normal affect Results - Vitals Vitals: Vital Signs - 24 hr 03/12/21 03/12/21 20:43 22:13 Temperature 36.5 C Heart Rate 96 81 Respiratory 20 16 Rate Blood Pressure 113/97 H 174/96 H O2 Saturation 98 96 Oxygen O2 Source Room air - Labs Labs: Laboratory Tests 03/12/21 03/12/21 03/12/21 21:29 21:29 21:29 WBC 10.0 RBC 4.40 Hgb 13.0 Hct 38.3 MCV 87.0 MCH 29.5 MCHC 33.9 RDW 13.6 Plt Count 336 MPV 9.8 Neut # (Auto) 6.7 H Lymph # (Auto) 2.3 [place] # (Auto) 0.8 Eos # (Auto) 0.1 Baso # (Auto) 0.1 Absolute Nucleated RBC 0.00 Nucleated RBC % 0.0 Sodium 134 L Potassium 2.8 L Chloride 103 Carbon Dioxide 18 L Anion Gap 13.0 BUN 10 Creatinine 0.8 Estimated GFR (MDRD) 74 L Glucose 135 H Calcium 9.9 Total Bilirubin 1.5 H AST 24 ALT 20 Alkaline Phosphatase 183 H Total Protein 7.9 Albumin 4.7 Globulin 3.2 Albumin/Globulin Ratio 1.5 Lipase 22 Urine Color Urine Clarity Urine pH Ur Specific [place] Urine Protein Urine Glucose (UA) Urine Ketones Urine Occult Blood Urine Nitrite Urine Bilirubin Urine Urobilinogen Ur Leukocyte Esterase Urine RBC Urine WBC Ur Squamous Epith Cells Urine Bacteria Urine Culture Comments Phenytoin 5.4 03/12/21 21:45 WBC RBC Hgb Hct MCV MCH MCHC RDW Plt Count MPV Neut # (Auto) Lymph # (Auto) [place] # (Auto) Eos # (Auto) Baso # (Auto) Absolute Nucleated RBC Nucleated RBC % Sodium Potassium Chloride Carbon Dioxide Anion Gap BUN Creatinine Estimated GFR (MDRD) Glucose Calcium Total Bilirubin AST ALT Alkaline Phosphatase Total Protein Albumin Globulin Albumin/Globulin Ratio Lipase Urine Color YELLOW Urine Clarity HAZY Urine pH 5.5 Ur Specific [place] 1.020 Urine Protein 30 H Urine Glucose (UA) NEGATIVE Urine Ketones TRACE Urine Occult Blood MODERATE H Urine Nitrite POSITIVE H Urine Bilirubin NEGATIVE Urine Urobilinogen 0.2 (NORMAL) Ur Leukocyte Esterase TRACE H Urine RBC 0-5 Urine WBC 11-25 H Ur Squamous Epith Cells FEW Squamous Urine Bacteria Moderate H Urine Culture Comments INDICATED Phenytoin PD MEDICAL DECISION MAKING - ED course ED course: 56-year-old woman presented with multiple complaints including nausea vomiting, seizure, and urinary symptoms, found to have UTI on urinalysis. Also with subtherapeutic phenytoin level that she will follow up with her doctor about. Return precautions given. Antibiotics given. Departure - Departure Disposition: 01 Home, Self Care Clinical Impression: Nausea and vomiting, Suprapubic pain, UTI (urinary tract infection) Condition: Good Instructions: ED UTI Cystitis Female Prescriptions: Nitrofurantoin [Macrobid] 100 mg PO BID 5 Days #10 tab Promethazine Supp [Phenergan Supp] 25 mg FL Q4H PRN #10 supp PRN Reason: Nausea / Vomiting Comments: You were seen in the emergency department after seizure. The main issue on your blood work was low potassium. We did give you Oral potassium here in the emergency department, but you need to follow-up with your primary doctor in regards to this. Your phenytoin level was also a little low (5.4).You should follow-up with your neurologist in regards to this and consider increasing the dose of your phenytoin. Your urine showed an infection therefore we will treat with antibiotics. Return to the emergency department if you have any new or worsening symptoms or other concerns. Discharge Date/Time: 03/12/21 23:21
[2021-03-12] MEDS: ONDANSETRON 4 MG/2 ML VIAL IVP STA ×2 (21:17→22:44)
[2021-03-12] MEDS: HYDROmorphone 1 MG/ML CARPUJECT IVP STA (21:17)
[2021-03-12] MEDS: SODIUM CHLORIDE 0.9% 1,000 ML IV STA (21:18)
[2021-03-12 21:33] LABS: BASOPHILS # (AUTO) 0.1 10^3/uL (0.0-0.1); BASOPHILS % (AUTO) 0.7 %; EOSINOPHILS # (AUTO) 0.1 10^3/uL (0.0-0.7); EOSINOPHILS % (AUTO) 1.2 %; HCT - HEMATOCRIT 38.3 % (37.0-47.0); LYMPHOCYTES # (AUTO) 2.3 10^3/uL (1.5-3.5); MEAN CORPUSCULAR HEMOGLOBIN 29.5 pg (27.0-31.0); MEAN CORPUSCULAR HGB CONC 33.9 g/dL (32.0-36.0); MEAN PLATELET VOLUME 9.8 fL (7.9-10.8); MONOCYTES # (AUTO) 0.8 10^3/uL (0.0-1.0); MONOCYTES % (AUTO) 8.3 %; NEUTROPHILS # (AUTO) 6.7 10^3/uL (1.5-6.6); NEUTROPHILS % (AUTO) 66.4 %; PLT - PLATELET COUNT 336 10^3/uL (130-450); RED CELL DISTRIBUTION WIDTH 13.6 % (12.0-15.0)
--- NOTE | 2021-03-12 21:41 | XRAY Report ---
PROCEDURE: Hip w/Pelvis 2-3V LT INDICATIONS: s/p seizure with hip pain TECHNIQUE: AP pelvis with lateral view of the left hip. COMPARISON: 03/11/2021. FINDINGS: Bones: No fractures or dislocations. A left hip prosthesis is partially visualized, with the femora l component incompletely included on the current study. No evidence of dislocation of the glenohumera l components. Pelvic ring appears intact. There is diffuse lucency of the visualized proximal left f emur redemonstrated. Soft tissues: The visualized bowel gas pattern is normal. IMPRESSION: 1. No definite acute fracture or dislocation. 2. Left hip prosthesis redemonstrated with diffuse lucency within the visualized proximal left femur. Reviewed by: Phong Banda MD on 03/12/2021 9:40 PM PDT Approved by: Phong Banda MD on 03/12/2021 9:40 PM PDT Station ID: [id number]
[2021-03-12 21:54] LABS: ALBUMIN 4.7 g/dL (3.2-5.5); ALBUMIN/GLOBULIN RATIO 1.5 (1.0-2.2); BILIRUBIN,TOTAL 1.5 mg/dL (0.2-1.0); CALCIUM 9.9 mg/dL (8.5-10.3); CREATININE 0.8 mg/dL (0.4-1.0); POTASSIUM 2.8 mmol/L (3.5-5.0); TOTAL PROTEIN 7.9 g/dL (6.7-8.2)
[2021-03-12 22:14] VITALS: BP 174/96
[2021-03-12 22:42] LABS: BILIRUBIN,URINE NEGATIVE (NEGATIVE); CLARITY,URINE HAZY (CLEAR); GLUCOSE, URINE (UA) NEGATIVE (NEGATIVE); KETONES,URINE (UA) TRACE mg/dL (NEGATIVE); LEUKOCYTE ESTERASE, URINE TRACE (NEGATIVE); NITRITE,URINE POSITIVE (NEGATIVE); OCCULT BLOOD,URINE MODERATE (NEGATIVE); PH,URINE 5.5 PH (5.0-7.5); PROTEIN,URINE 30 mg/dL (NEGATIVE); UROBILINOGEN,URINE 0.2 (NORMAL) E.U./dL (NORMAL)
[2021-03-12] MEDS: POTASSIUM CHLORIDE 20 MEQ TABLET PO STA ×2 (22:44)
[2021-03-12 22:48] LABS: BACTERIA,URINE Moderate /HPF (None Seen); RBC,URINE 0-5 /HPF (0-5); SQUAMOUS EPITHELIAL CELL,UR FEW Squamous (<= Few)
[2021-03-12] MEDS: oxyCODONE 5 MG TABLET PO STA (23:20)
== END 2021-03-12 23:21 | disposition home or self-care (01) ==
LOC: EDUNIT# → ED 20:34
DX: R11.2 Nausea with vomiting, unspecified (principal); N39.0 Urinary tract infection, site not specified; G40.909 Epilepsy, unspecified, not intractable, without status epilepticus; E87.6 Hypokalemia; M25.552 Pain in left hip; G89.29 Other chronic pain; Z96.642 Presence of left artificial hip joint; I10 Essential (primary) hypertension; M32.9 Systemic lupus erythematosus, unspecified; Z87.891 Personal history of nicotine dependence; Z66 Do not resuscitate
CPT/HCPCS: 36415; 73502; 80053; 80177; 80185; 81001; 83690; 85025; 87086; 87181; 96374; 96375; 99284; A9270; J1170

== ENCOUNTER 2021-03-19 00:41 | Outpatient (CLI) | payer MEDICARE, MEDICAID | END 2021-03-19 23:59 | disposition critical access hospital (66) | LOC: EMS 00:41 | DX: S73.005A Unspecified dislocation of left hip, initial encounter (principal); X58.XXXA Exposure to other specified factors, initial encounter; Y93.89 Activity, other specified | CPT/HCPCS: A0425; A0429 ==

== ENCOUNTER 2021-03-19 00:56 | Emergency (ER) | payer MEDICARE, MEDICAID ==
--- NOTE | 2021-03-19 01:02 | ED Physician Documentation ---
PD HPI LOWER EXT INJURY - Stated complaint Stated Complaint: HIP PX - History obtained from History obtained from: Patient - History of Present Illness PD HPI LOW EXT INJURY LOCATION: Left, Hip Type of injury: Twist (She states she rolled in bed and felt her left hip pop with pain and states it felt like prior dislocations she has had. Is not hurting quite as badly but still feels limited on range of motion.) Where injury occurred: Home Timing - onset: How many minutes ago (30), Today Timing - details: Abrupt onset, Still present (She states it is still hurting but not quite as badly as at the onset. It hurts less now than it did with prior dislocations.) Improved by: Rest Worsened by: Moving Associated symptoms: No: Weakness, Numbness Contributing factors: Prosthetic joint (She had a hip replacement on the left in Dec 31 2020 and has had it dislocated 3 times since the surgery. Most recent was a couple of weeks ago. She has been using her abduction pillow when rested. She has seen her orthopedist and they are discussing a repeat surgery to tighten the joint.) Recently seen: Emergency Dept (Seen here in the ER 8 days ago for a dislocation of the hip that was reduced successfully here. She had had pain after that slightly increased over baseline. She had a seizure a week ago and also seen in the ER with normal x-ray.) Review of Systems Constitutional: denies: Fever, Chills Nose: denies: Rhinorrhea / runny nose, Congestion Throat: denies: Sore throat Respiratory: denies: Cough GI: denies: Nausea, Vomiting, Diarrhea Skin: denies: Rash, Lesions PD PAST MEDICAL HISTORY - Past Medical History Cardiovascular: Hypertension, High cholesterol Respiratory: Asthma, Pneumonia Neuro: TIA, Headaches, Migraines, Peripheral neuropathy, Seizure disorder, Other Endocrine/Autoimmune: HyPOthyroidism, Systemic lupus erythematosus GI: GERD, Ulcers, C.difficile, Other 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 AD TAKER: Ovarian cancer : Incontinence, Chronic bladder infection, Renal insuffiency, Nocturia, Frequency, Kidney stones, Other HEENT: Chronic sinusitis Psych: Depression Musculoskeletal: Osteoarthritis, Osteoporosis, Fatigue, Chronic back pain, Other Derm: Psoriasis - Past Surgical History Past Surgical History: Yes General: Appendectomy Ortho: Hip replacement, Spine surgery /TELEPHONE AD TAKER: 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, Oophrectomy - Present Medications Home Medications: Ambulatory Orders Medication Instructions Recorded Confirmed Omeprazole [PriLOSEC] 20 mg PO BID 02/09/18 03/19/21 Phenytoin Sodium Extended 400 mg PO HS 03/16/18 03/19/21 Cetirizine [ZyrTEC] 10 mg PO DAILY 09/06/18 03/19/21 Melatonin 10 mg PO QPM PRN 09/06/18 03/19/21 diphenhydrAMINE [Benadryl] 25 mg PO DAILY PRN 09/14/18 03/19/21 Spironolactone 50 mg PO BID 04/09/19 03/19/21 Butalb/Acetaminophen/Caffeine 1 cap PO DAILY PRN 02/20/20 03/19/21 [Gxuycq-Nznnibqr-Kppl 50-300-40] Lasmiditan Succinate [Reyvow] 50 mg PO DAILY PRN 05/16/20 03/19/21 Ondansetron [Ondansetron Odt] 8 mg PO TID PRN 05/16/20 03/19/21 Oxycodone HCl/Acetaminophen 1 tab PO Q4HR PRN 06/13/20 03/19/21 [Oxycodone-Acetaminophen 10-325] levETIRAcetam [Roweepra] 1,000 mg PO BID 06/13/20 03/19/21 Atorvastatin [Lipitor] 20 mg PO QPM 12/25/20 03/19/21 Cholecalciferol (Vitamin D3) 1,250 mcg PO .QWEEK 12/25/20 03/19/21 [Vitamin D3] Clobetasol 0.05% Oint [Temovate 1 appful TOP TID PRN 12/25/20 03/19/21 0.05% Oint] Desonide 1 appful TOP BID 12/25/20 03/19/21 Magnesium Citrate 100 mg PO DAILY 12/25/20 03/19/21 Pregabalin [Lyrica] 75 mg PO TID 12/25/20 03/19/21 methocarbamoL [Methocarbamol] 1,000 mg PO QID 12/25/20 03/19/21 Prochlorperazine Maleate 10 mg PO Q4HR PRN #15 tab 01/21/21 03/19/21 [Compazine] carvediloL [Carvedilol] 25 mg PO Q12H 03/11/21 03/19/21 Nitrofurantoin [Macrobid] 100 mg PO BID 5 Days #10 tab 03/12/21 03/19/21 Promethazine Supp [Phenergan Supp] 25 mg [place] Q4H PRN #10 supp 03/12/21 03/19/21 methocarbamoL [Robaxin] 500 mg PO TID PRN #30 tablet 03/19/21 - Allergies Allergies/Adverse Reactions: Allergies Allergy/AdvReac Type Severity Reaction Status Date / Time Penicillins Allergy Severe Respiratory Verified 03/19/21 01:07 bacitracin Allergy Mild Hives Verified 03/19/21 01:07 [From Neosporin ([id number])] bacitracin zinc * Allergy Mild Itching Verified 03/19/21 01:07 [From Neosporin ([id number])] neomycin sulfate * Allergy Mild Itching Verified 03/19/21 01:07 [From Neosporin ([id number]-[id number])] lamotrigine Allergy Itching Verified 03/19/21 01:07 venom-honey bee Allergy Unknown Verified 03/19/21 01:07 [bee venom (honey bee)] ciprofloxacin AdvReac Emesis Verified 03/19/21 01:07 - Social History Does the pt smoke?: No Smoking Status: Former smoker Does the pt drink ETOH?: No Does the pt have substance abuse?: No - Immunizations Immunizations are current?: Yes - POLST Patient has POLST: Yes POLST Status: DNR PD ED PE NORMAL - Vitals Vital signs reviewed: Yes - General General: Alert and oriented X 3, Well developed/nourished, Other (seems uncomfortable with left hip and with movement of it. Not as distressed when I saw her recently for dislocation. ) - Derm Derm: Normal color, Warm and dry, No rash - Extremities Extremities: Other (The legs have symmetric length. There is no signs of infection at the hip incisional wounds. Passive range of motion is guarded with some pain but not exquisite pain. No pain with impaction nor distraction.) - Neuro Neuro: Alert and oriented X 3, No motor deficit, No sensory deficit, Normal speech Results - Vitals Vitals: Vital Signs - 24 hr 03/19/21 03/19/21 01:01 03:04 Temperature 36.9 C Heart Rate 72 74 Respiratory 18 16 Rate Blood Pressure 176/97 H 164/95 H O2 Saturation 98 97 Oxygen O2 Source Room air - Labs Labs: Laboratory Tests 03/19/21 01:45 Sodium 138 Potassium 2.4 L* Chloride 104 Carbon Dioxide 20 L Anion Gap 14.0 H BUN 10 Creatinine 0.5 Estimated GFR (MDRD) 128 Glucose 123 H Calcium 9.6 Magnesium 1.9 Total Bilirubin 0.6 AST 22 ALT 17 Alkaline Phosphatase 134 H Total Protein 7.4 Albumin 4.3 Globulin 3.1 Albumin/Globulin Ratio 1.4 Lipase 33 - Rads (name of study) left hip Radiology: Prelim report reviewed (Hip prosthesis in place without dislocation. Demineralization of the bone around the prostatic portion in the femoral shaft. No obvious fracture. Similar to prior films.), See rad report PD MEDICAL DECISION MAKING - ED course Complexity details: reviewed old records, reviewed results, considered differential (Given her abruptness of the pain this evening, with normal xray, I presume she had a subluxation of the hip that then went back into place and did not dislocate. She is having increased pain over baseline and can give her medicines for that.), d/w patient Departure - Departure Disposition: 01 Home, Self Care Clinical Impression: Left hip pain, Hypokalemia Subluxation of prosthetic hip Qualifiers: Encounter type: initial encounter Qualified Code(s): T84.029A - Dislocation of unspecified internal joint prosthesis, initial encounter Condition: Stable Record reviewed to determine appropriate education?: Yes Follow-Up: EBONY GU DO [Primary Care Provider] - Prescriptions: methocarbamoL [Robaxin] 500 mg PO TID PRN #30 tablet PRN Reason: Spasms Comments: Your hip is not dislocated on x-ray. The description would sound likely that it went partly out of place and then back in and you are now having pain with inflammation and spasms. Continue your current usual medications. You could add methocarbamol muscle relaxant 3 times a day for spasms to help reduce pain as well. Follow-up with your orthopedist. Continue your other usual medications including the potassium supplements in particular.
[2021-03-19] MEDS ORDERED: ONDANSETRON 4 MG/2 ML VIAL IVP STA (01:08)
[2021-03-19] MEDS ORDERED: HYDROmorphone 1 MG/ML CARPUJECT IVP STA ×2 (01:08→03:38)
[2021-03-19 02:01] LABS: ALBUMIN 4.3 g/dL (3.2-5.5); ALBUMIN/GLOBULIN RATIO 1.4 (1.0-2.2); BILIRUBIN,TOTAL 0.6 mg/dL (0.2-1.0); CALCIUM 9.6 mg/dL (8.5-10.3); CREATININE 0.5 mg/dL (0.4-1.0); MAGNESIUM 1.9 mg/dL (1.7-2.8); TOTAL PROTEIN 7.4 g/dL (6.7-8.2)
[2021-03-19 02:04] LABS: POTASSIUM 2.4 mmol/L (3.5-5.0)
[2021-03-19] MEDS ORDERED: POTASSIUM CHLOR 10 MEQ/100 ML 10 MEQ/100 ML BAG IV ONE (02:06)
[2021-03-19] MEDS ORDERED: methocarbamoL 500 MG TABLET PO STA (02:33)
[2021-03-19 05:47] VITALS: BP 168/94
--- NOTE | 2021-03-19 08:06 | XRAY Report ---
PROCEDURE: Hip w/Pelvis 2-3V LT INDICATIONS: Left hip pain TECHNIQUE: AP pelvis with lateral view(s) of the left hip(s). COMPARISON: 03/12/2021. FINDINGS: Left hip prosthesis is in anatomic alignment, similar from the prior study. Diffuse lucent appearance of the proximal left femur is unchanged. No abnormal lucency at the distal aspect of the femoral bandar m. No evidence of bill moore's slough bone fracture. IMPRESSION: No acute finding. Reviewed by: Kavon Vuong MD on 03/19/2021 8:04 AM PDT Approved by: Kavon Vuong MD on 03/19/2021 8:04 AM PDT Station ID: [id number]
== END 2021-03-19 05:40 | disposition home or self-care (01) ==
LOC: EDUNIT# → EDBD → EDSEX → SUPCPDRO 00:56 → ED 00:56
DX: M25.552 Pain in left hip (principal); T84.021A Dislocation of internal left hip prosthesis, initial encounter; Y83.1 Surgical operation with implant of artificial internal device as the cause of abnormal reaction of the patient, or of later complication, without mention of misadventure at the time of the procedure; Y92.003 Bedroom of unspecified non-institutional (private) residence as the place of occurrence of the external cause; E87.6 Hypokalemia; I10 Essential (primary) hypertension; M32.9 Systemic lupus erythematosus, unspecified; Z87.891 Personal history of nicotine dependence; Z66 Do not resuscitate
CPT/HCPCS: 36415; 73502; 80053; 83690; 83735; 96365; 96366; 96375; 96376; 99283; 99284; A9270; J1170

== ENCOUNTER 2021-04-19 17:45 | Outpatient (CLI) | payer MEDICARE, MEDICAID | END 2021-04-19 17:46 | disposition critical access hospital (66) | LOC: EMS 17:45 | DX: M25.552 Pain in left hip (principal) | CPT/HCPCS: A0425; A0429 ==

== ENCOUNTER 2021-04-19 17:57 | Emergency (ER) | payer MEDICARE, MEDICAID ==
[2021-04-19] MEDS ORDERED: HYDROmorphone 1 MG/ML CARPUJECT IVP STA ×2 (18:09→19:40)
--- NOTE | 2021-04-19 18:10 | ED Physician Documentation ---
PD HPI LOWER EXT INJURY - Stated complaint Stated Complaint: HIP DISLOCATION - History obtained from History obtained from: Patient - History of Present Illness PD HPI LOW EXT INJURY LOCATION: Left (56-year-old woman with complicated medical history when it comes to her left hip. Most recently had this hip replaced in December of this year and has had problems with dislocation since. She was getting out of bed today and the hip popped and now with severe pain and cannot walk. 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: Ovarian cancer : Incontinence, Chronic bladder infection, Renal insuffiency, Nocturia, Frequency, Kidney stones, Other HEENT: Chronic sinusitis Psych: Depression Musculoskeletal: Osteoarthritis, Osteoporosis, Fatigue, Chronic back pain, Other Derm: Psoriasis - Past Surgical History Past Surgical History: Yes General: Appendectomy Ortho: Hip replacement, Spine surgery /FRAMING MANAGER: 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, Oophrectomy - Present Medications Home Medications: Ambulatory Orders Medication Instructions Recorded Confirmed Omeprazole [PriLOSEC] 20 mg PO BID 02/09/18 03/19/21 Phenytoin Sodium Extended 400 mg PO HS 03/16/18 03/19/21 Cetirizine [ZyrTEC] 10 mg PO DAILY 09/06/18 03/19/21 Melatonin 10 mg PO QPM PRN 09/06/18 03/19/21 diphenhydrAMINE [Benadryl] 25 mg PO DAILY PRN 09/14/18 03/19/21 Spironolactone 50 mg PO BID 04/09/19 03/19/21 Butalb/Acetaminophen/Caffeine 1 cap PO DAILY PRN 02/20/20 03/19/21 [[id number]-Dwcdoktv-Xvon 50-300-40] Lasmiditan Succinate [Reyvow] 50 mg PO DAILY PRN 05/16/20 03/19/21 Ondansetron [Ondansetron Odt] 8 mg PO TID PRN 05/16/20 03/19/21 Oxycodone HCl/Acetaminophen 1 tab PO Q4HR PRN 06/13/20 03/19/21 [Oxycodone-Acetaminophen 10-325] levETIRAcetam [Roweepra] 1,000 mg PO BID 06/13/20 03/19/21 Atorvastatin [Lipitor] 20 mg PO QPM 12/25/20 03/19/21 Cholecalciferol (Vitamin D3) 1,250 mcg PO .QWEEK 12/25/20 03/19/21 [Vitamin D3] Clobetasol 0.05% Oint [Temovate 1 appful TOP TID PRN 12/25/20 03/19/21 0.05% Oint] Desonide 1 appful TOP BID 12/25/20 03/19/21 Magnesium Citrate 100 mg PO DAILY 12/25/20 03/19/21 Pregabalin [Lyrica] 75 mg PO TID 12/25/20 03/19/21 methocarbamoL [Methocarbamol] 1,000 mg PO QID 12/25/20 03/19/21 Prochlorperazine Maleate 10 mg PO Q4HR PRN #15 tab 01/21/21 03/19/21 [Compazine] carvediloL [Carvedilol] 25 mg PO Q12H 03/11/21 03/19/21 Nitrofurantoin [Macrobid] 100 mg PO BID 5 Days #10 tab 03/12/21 03/19/21 Promethazine Supp [Phenergan Supp] 25 mg [place] Q4H PRN #10 supp 03/12/21 03/19/21 methocarbamoL [Robaxin] 500 mg PO TID PRN #30 tablet 03/19/21 - Allergies Allergies/Adverse Reactions: Allergies Allergy/AdvReac Type Severity Reaction Status Date / Time Penicillins Allergy Severe Respiratory Verified 04/19/21 18:10 bacitracin Allergy Mild Hives Verified 04/19/21 18:10 [From Neosporin ([id number])] bacitracin zinc * Allergy Mild Itching Verified 04/19/21 18:10 [From Neosporin ([id number])] neomycin sulfate * Allergy Mild Itching Verified 04/19/21 18:10 [From Neosporin ([id number])] lamotrigine Allergy Itching Verified 04/19/21 18:10 venom-honey bee Allergy Unknown Verified 04/19/21 18:10 [bee venom (honey bee)] ciprofloxacin AdvReac Emesis Verified 04/19/21 18:10 - Social History Does the pt smoke?: No Smoking Status: Former smoker Does the pt drink ETOH?: No Does the pt have substance abuse?: No - Immunizations Immunizations are current?: Yes - POLST Patient has POLST: Yes POLST Status: DNR PD ED PE NORMAL - Vitals Vital signs reviewed: Yes - General General: Alert and oriented X 3, No acute distress - Neck Neck: Supple, no meningeal sign, No bony TTP - Cardiac Cardiac: RRR, No murmur - Respiratory Respiratory: No respiratory distress, Clear bilaterally - Abdomen Abdomen: Non tender - Extremities Extremities: Other (Left hip is shortened and externally rotated and unable to move it at all.) - Neuro Neuro: Alert and oriented X 3, Normal speech Results - Vitals Vitals: Vital Signs - 24 hr 04/19/21 04/19/21 04/19/21 18:04 18:48 18:53 Temperature 36.4 C L Heart Rate 94 94 95 Respiratory 16 16 16 Rate Blood Pressure 163/103 H 156/101 H 155/114 H O2 Saturation 96 96 95 04/19/21 04/19/21 04/19/21 18:55 18:57 18:59 Temperature Heart Rate 87 91 86 Respiratory 15 17 12 Rate Blood Pressure 177/138 H 109/83 H O2 Saturation 92 04/19/21 04/19/21 19:26 19:40 Temperature Heart Rate 86 87 Respiratory 16 18 Rate Blood Pressure 122/79 177/94 H O2 Saturation 97 99 Oxygen O2 Source Room air - Rads (name of study) L hip xr Radiology: EMP read contemporaneously (Prosthesis dislocation) Procedures - Reduction Body part reduced: Left, Hip, prosthetic Fracture or dislocation: Dislocation Hip reduction technique: Fulcrum (with medial push by tech) Reduction aftercare: Alignment improved - Procedural sedation Mallampati classification: II Sedation prep: Informed consent, Time out completed, PE performed, ASA 2 - mild disease Sedation medications: propofol (100mg then 60mg IVP) Patient status during sedation: Unresponsive, Maintained airway Sedation recovery: Recovered uneventfully Time in sedation (Minutes): 12 Departure - Departure Disposition: 01 Home, Self Care 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 Return for new or worsening symptoms.
[2021-04-19] MEDS ORDERED: PROPOFOL 200 MG/20 ML VIAL IVP STA ×2 (18:30→19:00)
--- NOTE | 2021-04-19 18:35 | XRAY Report ---
PROCEDURE: Hip w/Pelvis 2-3V LT INDICATIONS: hip pain, dislocation TECHNIQUE: AP pelvis with lateral view(s) of the bilateral hip(s). COMPARISON: None. FINDINGS: Bones: Postsurgical changes compatible left hip arthroplasty. Femoral component of the left hip arthr oplasty is dislocated laterally and superiorly. Soft tissues: The visualized bowel gas pattern is normal. No suspicious soft tissue calcifications. IMPRESSION: Left hip arthroplasty prosthesis dislocation. Reviewed by: Tarsha Gonzales MD, PhD on 04/19/2021 6:34 PM PDT Approved by: Tarsha Gonzales MD, PhD on 04/19/2021 6:34 PM PDT Station ID: [id number]
[2021-04-19] MEDS ORDERED: KETOROLAC 30 MG/ML VIAL IVP STA (19:40)
--- NOTE | 2021-04-19 20:03 | XRAY Report ---
PROCEDURE: Hip w/Pelvis 2-3V LT INDICATIONS: post reduction TECHNIQUE: AP pelvis with lateral view(s) of the bilateral hip(s). COMPARISON: at 1756 hours.. FINDINGS: Bones: Status post reduction of left hip prosthesis dislocation. There is normal association of the a cetabular and femoral components of the left hip arthroplasty. Soft tissues: The visualized bowel gas pattern is normal. No suspicious soft tissue calcifications. IMPRESSION: Status post reduction of left hip arthroplasty prosthesis dislocation. Reviewed by: Tarsha Gonzales MD, PhD on 04/19/2021 8:01 PM PDT Approved by: Tarsha Gonzales MD, PhD on 04/19/2021 8:01 PM PDT Station ID: [id number]
[2021-04-19 20:24] VITALS: BP 177/87
== END 2021-04-19 20:21 | disposition home or self-care (01) ==
LOC: EDUNIT# → ED 17:57
DX: T84.021A Dislocation of internal left hip prosthesis, initial encounter (principal); Y83.1 Surgical operation with implant of artificial internal device as the cause of abnormal reaction of the patient, or of later complication, without mention of misadventure at the time of the procedure; Y92.003 Bedroom of unspecified non-institutional (private) residence as the place of occurrence of the external cause; I10 Essential (primary) hypertension; M32.9 Systemic lupus erythematosus, unspecified; Z87.891 Personal history of nicotine dependence
CPT/HCPCS: 27266; 73502; 96374; 96375; 96376; 99152; 99284; 99285; J1170; 94770

== ENCOUNTER 2021-04-22 21:40 | Outpatient (CLI) | payer MEDICARE, MEDICAID | END 2021-04-22 21:41 | disposition critical access hospital (66) | LOC: EMS 21:40 | DX: M24.452 Recurrent dislocation, left hip (principal) | CPT/HCPCS: A0425; A0429 ==

== ENCOUNTER 2021-04-22 21:55 | Emergency (ER) | payer MEDICARE, MEDICAID ==
[2021-04-22] MEDS ORDERED: HYDROmorphone 1 MG/ML CARPUJECT IVP STA ×2 (22:00→23:29)
--- NOTE | 2021-04-22 22:02 | ED Physician Documentation ---
PD HPI LOWER EXT INJURY - Stated complaint Stated Complaint: HIP DISLOCATION - Chief complaint Chief Complaint: Ext Problem - History obtained from History obtained from: Patient - History of Present Illness PD HPI LOW EXT INJURY LOCATION: Left, Hip Type of injury: Other (she was getting up from sitting to go to bathroom and just was starting to stand, felt hip pop dislocated. Has had this happen several times prior. This is 5th time for true dislocation and has had a few times that felt out and then in with increased pain. Has talked with her Ortho about it.). No: Fall, Twist Timing - onset: How many hours ago (1) Timing - details: Abrupt onset, Still present Worsened by: Moving, Palpating Associated symptoms: No: Weakness, Numbness, Swelling Similar symptoms before: Diagnosis (left hip dislocation post operatively, with hip replacement in December 2020, and has had it dislocate now 5th time. Talked with her Ortho after each event and has appt with hip May 10 to discuss surgery to tighten the cuff.) Recently seen: Emergency Dept Review of Systems Constitutional: denies: Fever, Chills Nose: denies: Rhinorrhea / runny nose, Congestion Throat: denies: Sore throat Respiratory: denies: Cough GI: denies: Abdominal Pain, Nausea, Vomiting, Diarrhea Neurologic: denies: Focal weakness, Numbness, Altered mental status, Headache PD PAST MEDICAL HISTORY - Past Medical History Cardiovascular: Hypertension, High cholesterol Respiratory: Asthma, Pneumonia Neuro: TIA, Headaches, Migraines, Peripheral neuropathy, Seizure disorder, Other Endocrine/Autoimmune: HyPOthyroidism, Systemic lupus erythematosus GI: GERD, Ulcers, C.difficile, Other 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: Ovarian cancer : Incontinence, Chronic bladder infection, Renal insuffiency, Nocturia, Frequency, Kidney stones, Other HEENT: Chronic sinusitis Psych: Depression Musculoskeletal: Osteoarthritis, Osteoporosis, Fatigue, Chronic back pain, Other Derm: Psoriasis - Past Surgical History Past Surgical History: Yes General: Appendectomy Ortho: Hip replacement, Spine surgery /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: 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, Oophrectomy - Present Medications Home Medications: Ambulatory Orders Medication Instructions Recorded Confirmed Omeprazole [PriLOSEC] 20 mg PO BID 02/09/18 03/19/21 Phenytoin Sodium Extended 400 mg PO HS 03/16/18 03/19/21 Cetirizine [ZyrTEC] 10 mg PO DAILY 09/06/18 03/19/21 Melatonin 10 mg PO QPM PRN 09/06/18 03/19/21 diphenhydrAMINE [Benadryl] 25 mg PO DAILY PRN 09/14/18 03/19/21 Spironolactone 50 mg PO BID 04/09/19 03/19/21 Butalb/Acetaminophen/Caffeine 1 cap PO DAILY PRN 02/20/20 03/19/21 [Akhagf-Tboaoxpu-Cwpn 50-300-40] Lasmiditan Succinate [Reyvow] 50 mg PO DAILY PRN 05/16/20 03/19/21 Ondansetron [Ondansetron Odt] 8 mg PO TID PRN 05/16/20 03/19/21 Oxycodone HCl/Acetaminophen 1 tab PO Q4HR PRN 06/13/20 03/19/21 [Oxycodone-Acetaminophen 10-325] levETIRAcetam [Roweepra] 1,000 mg PO BID 06/13/20 03/19/21 Atorvastatin [Lipitor] 20 mg PO QPM 12/25/20 03/19/21 Cholecalciferol (Vitamin D3) 1,250 mcg PO .QWEEK 12/25/20 03/19/21 [Vitamin D3] Clobetasol 0.05% Oint [Temovate 1 appful TOP TID PRN 12/25/20 03/19/21 0.05% Oint] Desonide 1 appful TOP BID 12/25/20 03/19/21 Magnesium Citrate 100 mg PO DAILY 12/25/20 03/19/21 Pregabalin [Lyrica] 75 mg PO TID 12/25/20 03/19/21 methocarbamoL [Methocarbamol] 1,000 mg PO QID 12/25/20 03/19/21 Prochlorperazine Maleate 10 mg PO Q4HR PRN #15 tab 01/21/21 03/19/21 [Compazine] carvediloL [Carvedilol] 25 mg PO Q12H 03/11/21 03/19/21 Nitrofurantoin [Macrobid] 100 mg PO BID 5 Days #10 tab 03/12/21 03/19/21 Promethazine Supp [Phenergan Supp] 25 mg [place] Q4H PRN #10 supp 03/12/21 03/19/21 methocarbamoL [Robaxin] 500 mg PO TID PRN #30 tablet 03/19/21 - Allergies Allergies/Adverse Reactions: Allergies Allergy/AdvReac Type Severity Reaction Status Date / Time Penicillins Allergy Severe Respiratory Verified 04/22/21 22:01 bacitracin Allergy Mild Hives Verified 04/22/21 22:01 [From Neosporin ([id number])] bacitracin zinc * Allergy Mild Itching Verified 04/22/21 22:01 [From Neosporin ([id number]-kbtia)] neomycin sulfate * Allergy Mild Itching Verified 04/22/21 22:01 [From Neosporin ([id number]-[id number])] lamotrigine Allergy Itching Verified 04/22/21 22:01 venom-honey bee Allergy Unknown Verified 04/22/21 22:01 [bee venom (honey bee)] ciprofloxacin AdvReac Emesis Verified 04/22/21 22:01 doxycycline AdvReac Nausea Verified 04/22/21 22:01 - Social History Does the pt smoke?: No Smoking Status: Former smoker Does the pt drink ETOH?: No Does the pt have substance abuse?: No - Immunizations Immunizations are current?: Yes - POLST Patient has POLST: Yes POLST Status: DNR PD ED PE NORMAL - Vitals Vital signs reviewed: Yes - General General: Alert and oriented X 3, Well developed/nourished, Other (appears uncomfortable with movement of left hip. Left leg is shortened compared to right. ) - HEENT HEENT: Pharynx benign (able to open mouth fully and I can see tonsillar pillars. ) - Cardiac Cardiac: RRR, No murmur - Respiratory Respiratory: Clear bilaterally - Abdomen Abdomen: Soft, Non tender - Derm Derm: Normal color, Warm and dry - Extremities Extremities: Other (left hip painful with slight passive ROM. ) - Neuro Neuro: Alert and oriented X 3, No motor deficit, No sensory deficit, Normal speech Results - Vitals Vitals: Vital Signs - 24 hr 04/22/21 04/22/21 04/22/21 21:56 23:22 23:38 Temperature 36.5 C Heart Rate 75 75 71 Respiratory 14 18 16 Rate Blood Pressure 130/95 H 161/99 H 163/84 H O2 Saturation 100 100 100 04/22/21 04/22/21 04/22/21 23:42 23:45 23:46 Temperature Heart Rate 78 70 70 Respiratory 11 L 14 19 Rate Blood Pressure 141/95 H 128/86 H O2 Saturation 99 99 04/22/21 04/22/21 04/23/21 23:51 23:56 00:00 Temperature Heart Rate 73 71 69 Respiratory 14 14 16 Rate Blood Pressure 135/83 H 134/82 H 142/92 H O2 Saturation 99 99 100 04/23/21 04/23/21 00:15 01:00 Temperature Heart Rate 67 72 Respiratory 16 14 Rate Blood Pressure 146/93 H 145/89 H O2 Saturation 100 99 Oxygen O2 Source Nasal cannula Oxygen Flow Rate 2 - Rads (name of study) left hip xray Radiology: Prelim report reviewed (dislocated hip prosthesis), See rad report post reduction Radiology: Prelim report reviewed, See rad report (relocated) Procedures - Reduction Body part reduced: Left, Hip, prosthetic Fracture or dislocation: Dislocation Hip reduction technique: Fulcrum (Captain Surinder (knee crossed over opposing thigh, with pressure over the knee on dislocated side).) Reduction aftercare: NV intact, Xray confirms reduction, Alignment improved, Patient tolerated well - Procedural sedation Mallampati classification: I Sedation prep: Informed consent, Time out completed, Last meal (several hours prior), PE performed, ASA 2 - mild disease Sedation medications: dilaudid (1 mg while getting set up for sedation), propofol (80 mg) Patient status during sedation: Responds to tactile, Vitals remained stable, Maintained airway, Recovered uneventfully, Respiratory depression (briefly but did not need BVM/assistance.) Sedation recovery: Recovered uneventfully PD MEDICAL DECISION MAKING - ED course Complexity details: reviewed results, re-evaluated patient (feeling improved post reduction. ), considered differential, d/w patient Departure - Departure Disposition: 01 Home, Self Care Clinical Impression: Recurrent dislocation, left hip Condition: Stable Record reviewed to determine appropriate education?: Yes Follow-Up: EBONY GU DO [Primary Care Provider] - Comments: Contact your orthopedist tomorrow and let them know it dislocated again. See if they are able to see you sooner than 10 May to discuss possible surgical tightening of the joint to keep it from re dislocating. Continue current treatments and precautions. Discharge Date/Time: 04/23/21 01:03
[2021-04-22] MEDS ORDERED: KETOROLAC 30 MG/ML VIAL IVP STA (22:14)
[2021-04-22] MEDS ORDERED: PROPOFOL 200 MG/20 ML VIAL IVP STA (23:30)
[2021-04-23 01:03] VITALS: BP 145/89
--- NOTE | 2021-04-23 08:37 | XRAY Report ---
PROCEDURE: Hip w/Pelvis 2-3V LT INDICATIONS: hip dislocation TECHNIQUE: AP pelvis with lateral view(s) of the bilateral hip(s). COMPARISON: None. FINDINGS: Bones: There is dislocation of the left hip prosthesis. The femoral head component is superolateral to the a cetabulum. The acetabular component remains intact at the attachment screw site. Femoral component st em is not fully visualized. There are mild degenerative changes in the right hip. Soft tissues: The visualized bowel gas pattern is normal. No suspicious soft tissue calcifications. IMPRESSION: Superolateral displacement left femoral component of the hip prosthesis. Reviewed by: Rg Bruce on 04/23/2021 8:36 AM PDT Approved by: Rg Bruce on 04/23/2021 8:36 AM PDT Station ID: [id number]
--- NOTE | 2021-04-23 08:38 | XRAY Report ---
PROCEDURE: Hip w/Pelvis 1V LT INDICATIONS: post reduction TECHNIQUE: AP pelvis with lateral view(s) of the bilateral hip(s). COMPARISON: None. FINDINGS: Bones: Previous left hip prosthesis dislocation has been reduced. No acute fracture on limited films. Distal aspects of the femoral component are not visualized. There is very little bone surrounding th e proximal aspects of the femoral component. Soft tissues: The visualized bowel gas pattern is normal. No suspicious soft tissue calcifications. IMPRESSION: Status post reduction of previous hip prosthesis dislocation. Reviewed by: Rg Bruce on 04/23/2021 8:37 AM PDT Approved by: Rg Bruce on 04/23/2021 8:37 AM PDT Station ID: [id number]
== END 2021-04-23 01:03 | disposition home or self-care (01) ==
LOC: EDUNIT# → SUPCPDRO 21:55 → ED 21:55
DX: T84.021A Dislocation of internal left hip prosthesis, initial encounter (principal); Y83.1 Surgical operation with implant of artificial internal device as the cause of abnormal reaction of the patient, or of later complication, without mention of misadventure at the time of the procedure; I10 Essential (primary) hypertension; M32.9 Systemic lupus erythematosus, unspecified; Z87.891 Personal history of nicotine dependence; Z66 Do not resuscitate
CPT/HCPCS: 27265; 73501; 73502; 96374; 96375; 96376; 99152; 99284; 99285; J1170; 94770

== ENCOUNTER 2021-05-01 19:52 | Outpatient (CLI) | payer MEDICARE, MEDICAID | END 2021-05-01 19:53 | disposition critical access hospital (66) | LOC: EMS 19:52 | DX: M25.552 Pain in left hip (principal); Z96.642 Presence of left artificial hip joint | CPT/HCPCS: A0425; A0429 ==

== ENCOUNTER 2021-05-01 20:06 | Emergency (ER) | payer MEDICARE, MEDICAID ==
[2021-05-01] MEDS ORDERED: SODIUM CHLORIDE 0.9% 1,000 ML IV STA (20:17)
[2021-05-01] MEDS ORDERED: HYDROmorphone 1 MG/ML CARPUJECT IVP STA ×2 (20:17→21:30)
--- NOTE | 2021-05-01 20:18 | ED Physician Documentation ---
PD HPI LOWER EXT INJURY - Stated complaint Stated Complaint: LEFT HIP FEELS DISLOCATED - Chief complaint Chief Complaint: Ext Problem - History obtained from History obtained from: Patient, EMS - History of Present Illness PD HPI LOW EXT INJURY LOCATION: Left, Hip Type of injury: Twist (she was lying with adductor block between legs, reached over for remote control or such, and felt hip dislocate again. This is 6th (?) episode since hip replacement few months ago, done by [facility]. She has been in contact with her Ortho few times, and has appt f/u on Apr 24.). 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 denies: Fever, Chills Nose: denies: Rhinorrhea / runny nose, Congestion Throat: denies: Sore throat Cardiac: denies: Chest pain / pressure Respiratory: denies: Dyspnea, Cough GI: denies: Nausea, Vomiting PD PAST MEDICAL HISTORY - Past Medical History Cardiovascular: Hypertension, High cholesterol Respiratory: Asthma, Pneumonia Neuro: TIA, Headaches, Migraines, Peripheral neuropathy, Seizure disorder, Other Endocrine/Autoimmune: HyPOthyroidism, Systemic lupus erythematosus GI: GERD, Ulcers, C.difficile, Other [employer] OP: Ovarian cancer : Incontinence, Chronic bladder infection, Renal insuffiency, Nocturia, Frequency, Kidney stones, Other HEENT: Chronic sinusitis Psych: Depression Musculoskeletal: Osteoarthritis, Osteoporosis, Fatigue, Chronic back pain, Other Derm: Psoriasis - Past Surgical History Past Surgical History: Yes General: Appendectomy Ortho: Hip replacement, Spine surgery /[employer] OP: 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, Oophrectomy - Present Medications Home Medications: Ambulatory Orders Medication Instructions Recorded Confirmed Omeprazole [PriLOSEC] 20 mg PO BID 02/09/18 03/19/21 Phenytoin Sodium Extended 400 mg PO HS 03/16/18 03/19/21 Cetirizine [ZyrTEC] 10 mg PO DAILY 09/06/18 03/19/21 Melatonin 10 mg PO QPM PRN 09/06/18 03/19/21 diphenhydrAMINE [Benadryl] 25 mg PO DAILY PRN 09/14/18 03/19/21 Spironolactone 50 mg PO BID 04/09/19 03/19/21 Butalb/Acetaminophen/Caffeine 1 cap PO DAILY PRN 02/20/20 03/19/21 [[id number] 50-300-40] Lasmiditan Succinate [Reyvow] 50 mg PO DAILY PRN 05/16/20 03/19/21 Ondansetron [Ondansetron Odt] 8 mg PO TID PRN 05/16/20 03/19/21 Oxycodone HCl/Acetaminophen 1 tab PO Q4HR PRN 06/13/20 03/19/21 [Oxycodone-Acetaminophen 10-325] levETIRAcetam [Roweepra] 1,000 mg PO BID 06/13/20 03/19/21 Atorvastatin [Lipitor] 20 mg PO QPM 12/25/20 03/19/21 Cholecalciferol (Vitamin D3) 1,250 mcg PO .QWEEK 12/25/20 03/19/21 [Vitamin D3] Clobetasol 0.05% Oint [Temovate 1 appful TOP TID PRN 12/25/20 03/19/21 0.05% Oint] Desonide 1 appful TOP BID 12/25/20 03/19/21 Magnesium Citrate 100 mg PO DAILY 12/25/20 03/19/21 Pregabalin [Lyrica] 75 mg PO TID 12/25/20 03/19/21 methocarbamoL [Methocarbamol] 1,000 mg PO QID 12/25/20 03/19/21 Prochlorperazine Maleate 10 mg PO Q4HR PRN #15 tab 01/21/21 03/19/21 [Compazine] carvediloL [Carvedilol] 25 mg PO Q12H 03/11/21 03/19/21 Nitrofurantoin [Macrobid] 100 mg PO BID 5 Days #10 tab 03/12/21 03/19/21 Promethazine Supp [Phenergan Supp] 25 mg NH Q4H PRN #10 supp 03/12/21 03/19/21 methocarbamoL [Robaxin] 500 mg PO TID PRN #30 tablet 03/19/21 - Allergies Allergies/Adverse Reactions: Allergies Allergy/AdvReac Type Severity Reaction Status Date / Time Penicillins Allergy Severe Respiratory Verified 05/01/21 20:12 bacitracin Allergy Mild Hives Verified 05/01/21 20:12 [From Neosporin ([id number])] bacitracin zinc * Allergy Mild Itching Verified 05/01/21 20:12 [From Neosporin ([id number])] neomycin sulfate * Allergy Mild Itching Verified 05/01/21 20:12 [From Neosporin ([id number])] lamotrigine Allergy Itching Verified 05/01/21 20:12 venom-honey bee Allergy Unknown Verified 05/01/21 20:12 [bee venom (honey bee)] ciprofloxacin AdvReac Emesis Verified 05/01/21 20:12 doxycycline AdvReac Nausea Verified 05/01/21 20:12 - Social History Does the pt smoke?: No Smoking Status: Former smoker Does the pt drink ETOH?: No Does the pt have substance abuse?: No - Immunizations Immunizations are current?: Yes - POLST Patient has POLST: Yes POLST Status: DNR PD ED PE NORMAL - Vitals Vital signs reviewed: Yes - General General: Alert and oriented X 3, No acute distress, Well developed/nourished - HEENT HEENT: Pharynx benign - Cardiac Cardiac: RRR, No murmur - Respiratory Respiratory: No respiratory distress, Clear bilaterally - Derm Derm: Normal color, Warm and dry - Extremities Extremities: Other (Left hip with pain on slight ROM. Leg is shortened c/w dislocation. Normal color and pulses, sensation distally. ) - Neuro Neuro: Alert and oriented X 3, No motor deficit, Normal speech Results - Vitals Vitals: Vital Signs - 24 hr 05/01/21 05/01/21 05/01/21 20:12 22:54 23:12 Temperature 36.5 C Heart Rate 80 79 97 Respiratory 18 18 15 Rate Blood Pressure 165/102 H 140/88 H 174/89 H O2 Saturation 99 96 100 05/02/21 05/02/21 05/02/21 00:20 00:23 00:25 Temperature Heart Rate 84 85 89 Respiratory 20 11 L 18 Rate Blood Pressure 127/86 H 126/69 125/81 H O2 Saturation 99 94 96 05/02/21 01:03 Temperature 36.5 C Heart Rate 88 Respiratory 18 Rate Blood Pressure 124/80 O2 Saturation 96 Oxygen O2 Source Room air - Rads (name of study) left hip xray Radiology: Prelim report reviewed (dislocation without fracture. 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 Much time in the ER awaiting nursing and RT to be available for the sedation for the reduction. The patient was given Dilaudid IV in the interim for comfort.), considered differential (Recurrent dislocation and clinically appears that way. Will verify with x-ray.), d/w patient Departure - Departure Disposition: 01 Home, Self Care Clinical Impression: Recurrent dislocation of hip joint prosthesis Condition: Stable Follow-Up: Tai Mckinnon MD [Physician No Access] - EBONY GU DO [Primary Care Provider] - Comments: You can try the hip binder and see if that holds better and keeps your hip from dislocating. Follow-up with your orthopedist as planned. You could call tomorrow and update his office that it dislocated again and see if that changes the timing of your appointment at all. Otherwise continue with your usual medications etc. Discharge Date/Time: 05/02/21 01:25
[2021-05-01] MEDS ORDERED: PROPOFOL 200 MG/20 ML VIAL IVP STA (21:30)
[2021-05-01] MEDS ORDERED: KETOROLAC 15 MG/ML VIAL IVP STA (21:40)
--- NOTE | 2021-05-01 21:46 | XRAY Report ---
PROCEDURE: Hip w/Pelvis 2-3V LT INDICATIONS: recurrent dislocation left hip TECHNIQUE: AP pelvis with lateral view(s) of the left hip(s). COMPARISON: X-ray hip 04/23/2021 FINDINGS: Bones: There is dislocation of the prosthetic left femoral head from the acetabulum. It is displaced laterally. No visualized fracture. Pelvic ring appears intact. No suspicious bony lesions. Soft tissues: The visualized bowel gas pattern is normal. No suspicious soft tissue calcifications. IMPRESSION: Left hip dislocation as above. Reviewed by: Rama Leyva MD on 05/01/2021 9:45 PM PDT Approved by: Rama Leyva MD on 05/01/2021 9:45 PM PDT Station ID: [id number]
[2021-05-02 01:03] VITALS: BP 124/80
--- NOTE | 2021-05-02 07:54 | XRAY Report ---
PROCEDURE: Hip w/Pelvis 1V LT INDICATIONS: post reduct TECHNIQUE: AP pelvis with lateral view(s) of the bilateral hip(s). COMPARISON: None. FINDINGS: Bones: Postsurgical changes compatible with left hip arthroplasty. Distal femoral component of the l eft hip arthroplasty is not visualized. Orthopedic hardware is in expected position where visualized. No lucencies at the bone hardware interface where visualized No fractures or dislocations. Pelvic r ing appears intact. No suspicious bony lesions. Soft tissues: The visualized bowel gas pattern is normal. No suspicious soft tissue calcifications. IMPRESSION: No fracture. No acute osseous lesion. If there persistent symptoms or continued clinical concern for pathology, then repeat plain film radiographs (7-10 days) or advanced imaging (CT, MR, b one scan) should be considered for further evaluation. Reviewed by: Tarsha Gonzales MD, PhD on 05/02/2021 7:52 AM PDT Approved by: Tarsha Gonzales MD, PhD on 05/02/2021 7:52 AM PDT Station ID: [id number]
== END 2021-05-02 01:25 | disposition home or self-care (01) ==
LOC: EDUNIT# → ED 20:06
DX: M24.452 Recurrent dislocation, left hip (principal); Z96.642 Presence of left artificial hip joint; I10 Essential (primary) hypertension; Z87.891 Personal history of nicotine dependence; Z66 Do not resuscitate
CPT/HCPCS: 27266; 73501; 73502; 96374; 96375; 96376; 99152; 99283; 99285; J1170

== ENCOUNTER 2021-05-03 18:26 | Outpatient (CLI) | payer MEDICARE, MEDICAID | END 2021-05-03 18:27 | disposition critical access hospital (66) | LOC: EMS 18:26 | DX: M25.552 Pain in left hip (principal); Z96.642 Presence of left artificial hip joint | CPT/HCPCS: A0425; A0429 ==

== ENCOUNTER 2021-05-03 18:39 | Emergency (ER) | payer MEDICARE, MEDICAID ==
[2021-05-03] MEDS ORDERED: HYDROmorphone 1 MG/ML CARPUJECT IVP STA (19:12)
[2021-05-03] MEDS ORDERED: PROPOFOL 200 MG/20 ML VIAL IVP STA (19:13)
--- NOTE | 2021-05-03 19:15 | ED Physician Documentation ---
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 She was T+R several times for left hip dislocation, most recently before tonight was 2 days ago. Review of Systems Cardiac: reports: Reviewed and negative Respiratory: reports: Reviewed and negative GI: reports: Reviewed and negative Musculoskeletal: reports: Joint pain, Pain with weight bearing (unable to bear weight LLE due to pain at left hip). denies: Joint swelling Neurologic: denies: Focal weakness, Numbness, Head injury PD PAST MEDICAL HISTORY - Past Medical History Cardiovascular: Hypertension, High cholesterol Respiratory: Asthma, Pneumonia Neuro: TIA, Headaches, Migraines, Peripheral neuropathy, Seizure disorder, Other Endocrine/Autoimmune: HyPOthyroidism, Systemic lupus erythematosus GI: GERD, Ulcers, C.difficile, Other [employer] GUARD: Ovarian cancer : Incontinence, Chronic bladder infection, Renal insuffiency, Nocturia, Frequency, Kidney stones, Other HEENT: Chronic sinusitis Psych: Depression Musculoskeletal: Osteoarthritis, Osteoporosis, Fatigue, Chronic back pain, Other Derm: Psoriasis - Past Surgical History Past Surgical History: Yes General: Appendectomy Ortho: Hip replacement, Spine surgery /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, 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 - Present Medications Home Medications: Ambulatory Orders Medication Instructions Recorded Confirmed Omeprazole [PriLOSEC] 20 mg PO BID 02/09/18 03/19/21 Phenytoin Sodium Extended 400 mg PO HS 03/16/18 03/19/21 Cetirizine [ZyrTEC] 10 mg PO DAILY 09/06/18 03/19/21 Melatonin 10 mg PO QPM PRN 09/06/18 03/19/21 diphenhydrAMINE [Benadryl] 25 mg PO DAILY PRN 09/14/18 03/19/21 Spironolactone 50 mg PO BID 04/09/19 03/19/21 Butalb/Acetaminophen/Caffeine 1 cap PO DAILY PRN 02/20/20 03/19/21 [[id number]-[id number]-[id number] 50-300-40] Lasmiditan Succinate [Reyvow] 50 mg PO DAILY PRN 05/16/20 03/19/21 Ondansetron [Ondansetron Odt] 8 mg PO TID PRN 05/16/20 03/19/21 Oxycodone HCl/Acetaminophen 1 tab PO Q4HR PRN 06/13/20 03/19/21 [Oxycodone-Acetaminophen 10-325] levETIRAcetam [Roweepra] 1,000 mg PO BID 06/13/20 03/19/21 Atorvastatin [Lipitor] 20 mg PO QPM 12/25/20 03/19/21 Cholecalciferol (Vitamin D3) 1,250 mcg PO .QWEEK 12/25/20 03/19/21 [Vitamin D3] Clobetasol 0.05% Oint [Temovate 1 appful TOP TID PRN 12/25/20 03/19/21 0.05% Oint] Desonide 1 appful TOP BID 12/25/20 03/19/21 Magnesium Citrate 100 mg PO DAILY 12/25/20 03/19/21 Pregabalin [Lyrica] 75 mg PO TID 12/25/20 03/19/21 methocarbamoL [Methocarbamol] 1,000 mg PO QID 12/25/20 03/19/21 Prochlorperazine Maleate 10 mg PO Q4HR PRN #15 tab 01/21/21 03/19/21 [Compazine] carvediloL [Carvedilol] 25 mg PO Q12H 03/11/21 03/19/21 Nitrofurantoin [Macrobid] 100 mg PO BID 5 Days #10 tab 03/12/21 03/19/21 Promethazine Supp [Phenergan Supp] 25 mg [place] Q4H PRN #10 supp 03/12/21 03/19/21 methocarbamoL [Robaxin] 500 mg PO TID PRN #30 tablet 03/19/21 - Allergies Allergies/Adverse Reactions: Allergies Allergy/AdvReac Type Severity Reaction Status Date / Time Penicillins Allergy Severe Respiratory Verified 05/03/21 19:03 bacitracin Allergy Mild Hives Verified 05/03/21 19:03 [From Neosporin ([id number])] bacitracin zinc * Allergy Mild Itching Verified 05/03/21 19:03 [From Neosporin ([id number])] neomycin sulfate * Allergy Mild Itching Verified 05/03/21 19:03 [From Neosporin ([id number])] lamotrigine Allergy Itching Verified 05/03/21 19:03 venom-honey bee Allergy Unknown Verified 05/03/21 19:03 [bee venom (honey bee)] ciprofloxacin AdvReac Emesis Verified 05/03/21 19:03 doxycycline AdvReac Nausea Verified 05/03/21 19:03 - Social History Does the pt smoke?: No Smoking Status: Former smoker Does the pt drink ETOH?: No Does the pt have substance abuse?: No - Immunizations Immunizations are current?: Yes - POLST Patient has POLST: Yes POLST Status: DNR PD ED PE NORMAL - Vitals Vital signs reviewed: Yes - General General: Alert and oriented X 3, No acute distress (NAD at rest, obvious painful distress with any movement involving left hip), Well developed/nourished - Cardiac Cardiac: RRR, No murmur - Abdomen Abdomen: Soft, Non tender - Derm Derm: Normal color, Warm and dry - Extremities Extremities: Other (strong left DP/PT pulses) - Neuro Neuro: No motor deficit (5/5 left plantar/dorsiflexion), No sensory deficit (LTS intact left foot) PD ED PE EXPANDED - Extremities Extremities: Limited ROM (unable to tolerate any ROM left hip due to pain), Left hip, Other (LLE foreshortened, internally rotated). No: Cold foot, Pale foot Results - Vitals Vitals: Vital Signs - 24 hr 05/03/21 05/03/21 05/03/21 18:58 19:04 19:55 Temperature 36.8 C 36.8 C 36.8 C Heart Rate 78 79 68 Respiratory 18 18 19 Rate Blood Pressure 143/90 H 144/96 H 145/95 H O2 Saturation 97 97 100 05/03/21 05/03/21 05/03/21 19:58 20:00 20:03 Temperature Heart Rate 69 72 73 Respiratory 19 14 20 Rate Blood Pressure 145/95 H 122/72 O2 Saturation 96 96 05/03/21 05/03/21 05/03/21 20:06 20:13 20:30 Temperature Heart Rate 69 64 62 Respiratory 18 20 18 Rate Blood Pressure 118/106 H 131/78 H 122/68 O2 Saturation 99 97 99 05/03/21 05/03/21 05/03/21 20:46 21:17 21:25 Temperature 36.5 C Heart Rate 63 66 73 Respiratory 12 20 17 Rate Blood Pressure 131/80 H 135/76 H 135/76 H O2 Saturation 98 99 100 Oxygen O2 Source Room air - Rads (name of study) pelvis xray Radiology: Prelim report reviewed, See rad report post-reduction left hip/pelvis xray Radiology: Prelim report reviewed, See rad report Procedures - Reduction Body part reduced: Left, Hip, prosthetic Fracture or dislocation: Dislocation Anesthesia: Dilaudid, Other (propofol, titrated to total of 60 mg) Hip reduction technique: Other (Captain Surinder technique) Reduction aftercare: NV intact, Xray confirms reduction, Alignment improved, Patient tolerated well - Procedural sedation Sedation prep: Informed consent, Time out completed, Last meal (11:00 AM), ASA 2 - mild disease Sedation Medications: propofol Mallampati classification: II Patient status during sedation: Responds to verbal (her responses are incomprehensible mumbling), Vitals remained stable, Maintained airway, Recovered uneventfully Sedation recovery: Recovered uneventfully, Back to baseline Time in sedation (Minutes): 30 PD MEDICAL DECISION MAKING - ED course Complexity details: reviewed old records, reviewed results, re-evaluated patient, considered differential, d/w patient ED course: presents with atraumatic left hip pain which has become increasingly typical for patient's left hip dislocations. Given 1mg dilaudid for analgesia and propofol titrated until adequate sedation achieved, hip then reduced, and post-reduction xrays show reduction. patient observed post-sedation until back to baseline mental status and discharged. 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
--- NOTE | 2021-05-03 19:42 | XRAY Report ---
PROCEDURE: Hip w/Pelvis 1V LT INDICATIONS: left hip dislocation TECHNIQUE: AP pelvis. COMPARISON: 05/02/2021 FINDINGS: Bones: Left hip arthroplasty has been performed. Femoral component has been dislocated laterally. Soft tissues: The visualized bowel gas pattern is normal. No suspicious soft tissue calcifications. IMPRESSION: Left hip arthroplasty dislocation. Reviewed by: Ritchie Bravo MD on 05/03/2021 7:41 PM PDT Approved by: Ritchie Bravo MD on 05/03/2021 7:41 PM PDT Station ID: [id number]
[2021-05-03] MEDS ORDERED: SODIUM CHLORIDE 0.9% 1,000 ML IV STA (19:49)
[2021-05-03] MEDS ORDERED: KETOROLAC 30 MG/ML VIAL IVP STA (20:28)
--- NOTE | 2021-05-03 20:37 | XRAY Report ---
PROCEDURE: Hip w/Pelvis 1V LT INDICATIONS: post-reduction TECHNIQUE: AP pelvis with lateral view(s) of the bilateral hip(s). COMPARISON: 05/03/2021 at 1905 hours FINDINGS: Bones: Left hip arthroplasty has been reduced. Pelvic ring appears intact. No suspicious bony lesion s. Soft tissues: The visualized bowel gas pattern is normal. No suspicious soft tissue calcifications. IMPRESSION: Reduction of left hip arthroplasty dislocation. Reviewed by: Ritchie Bravo MD on 05/03/2021 8:36 PM PDT Approved by: Ritchie Bravo MD on 05/03/2021 8:36 PM PDT Station ID: [id number]
[2021-05-03 21:17] VITALS: BP 135/76
== END 2021-05-03 21:25 | disposition home or self-care (01) ==
LOC: EDUNIT# → ED 18:39
DX: M24.452 Recurrent dislocation, left hip (principal); M25.552 Pain in left hip; I10 Essential (primary) hypertension; Z87.891 Personal history of nicotine dependence
CPT/HCPCS: 27266; 73501; 96374; 99152; 99153; 99284; 99285; J1170; 94770

== ENCOUNTER 2021-05-06 14:10 | Outpatient (CLI) | payer MEDICARE, MEDICAID | END 2021-05-06 14:11 | disposition critical access hospital (66) | LOC: EMS 14:10 | DX: T84.021A Dislocation of internal left hip prosthesis, initial encounter (principal); X58.XXXA Exposure to other specified factors, initial encounter; Y93.89 Activity, other specified; Y92.003 Bedroom of unspecified non-institutional (private) residence as the place of occurrence of the external cause | CPT/HCPCS: A0425; A0429 ==

== ENCOUNTER 2021-05-06 14:22 | Emergency (ER) | payer MEDICARE, MEDICAID ==
[2021-05-06] MEDS ORDERED: KETOROLAC 30 MG/ML VIAL IVP STA (15:00)
[2021-05-06] MEDS ORDERED: PROPOFOL 200 MG/20 ML VIAL IVP STA (15:00)
[2021-05-06] MEDS ORDERED: HYDROmorphone 1 MG/ML CARPUJECT IVP STA (15:00)
[2021-05-06] MEDS ORDERED: SODIUM CHLORIDE 0.9% 1,000 ML IV STA (15:02)
--- NOTE | 2021-05-06 15:04 | XRAY Report ---
PROCEDURE: Hip w/Pelvis 2-3V LT INDICATIONS: hip pain, h/o recurrent dislocations TECHNIQUE: AP pelvis with lateral view(s) of the bilateral hip(s). COMPARISON: X-ray hip and pelvis 05/03/2021 FINDINGS: Bones: There is lateral dislocation of the left prosthetic femur from the prosthetic acetabulum. It i s noted that was recently reduced on 05/03/2021. Hardware appears intact without evidence of hardware or osseous fracture. Pelvic ring appears intact. No suspicious bony lesions. Soft tissues: The visualized bowel gas pattern is normal. No suspicious soft tissue calcifications. IMPRESSION: Left hip dislocation as above. Reviewed by: Rama Leyva MD on 05/06/2021 3:03 PM PDT Approved by: Rama Leyva MD on 05/06/2021 3:03 PM PDT Station ID: [id number]
[2021-05-06 15:39] VITALS: BP 126/72
--- NOTE | 2021-05-06 15:42 | ED Physician Documentation ---
PD HPI LOWER EXT INJURY - Stated complaint Stated Complaint: DISLOCATED L HIP - Chief complaint Chief Complaint: Ext Problem - History obtained from History obtained from: Patient - History of Present Illness PD HPI LOW EXT INJURY LOCATION: Left, Hip Where injury occurred: Home Timing - duration: Hours (1) Timing - details: Abrupt onset Pain level max: 6 Pain level now: 5 Improved by: Rest Worsened by: Moving, Palpating Associated symptoms: No: Weakness, Numbness, Tingling, Swelling Contributing factors: Prosthetic joint - Additional information Additional information: 56-year-old female with a prosthetic left hip. She states that it dislocated again at home today. This is her third dislocation in the last week. She is scheduled to see her orthopedist on (3 days)She states that she was lying in bed when she felt it dislocate. 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: Ovarian cancer : Incontinence, Chronic bladder infection, Renal insuffiency, Nocturia, Frequency, Kidney stones, Other HEENT: Chronic sinusitis Psych: Depression Musculoskeletal: Osteoarthritis, Osteoporosis, Fatigue, Chronic back pain, Other Derm: Psoriasis - Past Surgical History Past Surgical History: Yes General: Appendectomy Ortho: Hip replacement, Spine surgery /LEAD CYTOGENETIC TECHNOLOGIST: 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, Oophrectomy - Present Medications Home Medications: Ambulatory Orders Medication Instructions Recorded Confirmed Omeprazole [PriLOSEC] 20 mg PO BID 02/09/18 03/19/21 Phenytoin Sodium Extended 400 mg PO HS 03/16/18 03/19/21 Cetirizine [ZyrTEC] 10 mg PO DAILY 09/06/18 03/19/21 Melatonin 10 mg PO QPM PRN 09/06/18 03/19/21 diphenhydrAMINE [Benadryl] 25 mg PO DAILY PRN 09/14/18 03/19/21 Spironolactone 50 mg PO BID 04/09/19 03/19/21 Butalb/Acetaminophen/Caffeine 1 cap PO DAILY PRN 02/20/20 03/19/21 [Shyach-Yxvvqssm-Krkt 50-300-40] Lasmiditan Succinate [Reyvow] 50 mg PO DAILY PRN 05/16/20 03/19/21 Ondansetron [Ondansetron Odt] 8 mg PO TID PRN 05/16/20 03/19/21 Oxycodone HCl/Acetaminophen 1 tab PO Q4HR PRN 06/13/20 03/19/21 [Oxycodone-Acetaminophen 10-325] levETIRAcetam [Roweepra] 1,000 mg PO BID 06/13/20 03/19/21 Atorvastatin [Lipitor] 20 mg PO QPM 12/25/20 03/19/21 Cholecalciferol (Vitamin D3) 1,250 mcg PO .QWEEK 12/25/20 03/19/21 [Vitamin D3] Clobetasol 0.05% Oint [Temovate 1 appful TOP TID PRN 12/25/20 03/19/21 0.05% Oint] Desonide 1 appful TOP BID 12/25/20 03/19/21 Magnesium Citrate 100 mg PO DAILY 12/25/20 03/19/21 Pregabalin [Lyrica] 75 mg PO TID 12/25/20 03/19/21 methocarbamoL [Methocarbamol] 1,000 mg PO QID 12/25/20 03/19/21 Prochlorperazine Maleate 10 mg PO Q4HR PRN #15 tab 01/21/21 03/19/21 [Compazine] carvediloL [Carvedilol] 25 mg PO Q12H 03/11/21 03/19/21 Nitrofurantoin [Macrobid] 100 mg PO BID 5 Days #10 tab 03/12/21 03/19/21 Promethazine Supp [Phenergan Supp] 25 mg TX Q4H PRN #10 supp 03/12/21 03/19/21 methocarbamoL [Robaxin] 500 mg PO TID PRN #30 tablet 03/19/21 - Allergies Allergies/Adverse Reactions: Allergies Allergy/AdvReac Type Severity Reaction Status Date / Time Penicillins Allergy Severe Respiratory Verified 05/06/21 14:32 bacitracin Allergy Mild Hives Verified 05/06/21 14:32 [From Neosporin ([id number])] bacitracin zinc * Allergy Mild Itching Verified 05/06/21 14:32 [From Neosporin ([id number])] neomycin sulfate * Allergy Mild Itching Verified 05/06/21 14:32 [From Neosporin ([id number])] lamotrigine Allergy Itching Verified 05/06/21 14:32 venom-honey bee Allergy Unknown Verified 05/06/21 14:32 [bee venom (honey bee)] ciprofloxacin AdvReac Emesis Verified 05/06/21 14:32 doxycycline AdvReac Nausea Verified 05/06/21 14:32 - Social History Does the pt smoke?: No Smoking Status: Former smoker Does the pt drink ETOH?: No Does the pt have substance abuse?: No - Immunizations Immunizations are current?: Yes - POLST Patient has POLST: Yes POLST Status: DNR PD ED PE NORMAL - Vitals Vital signs reviewed: Yes - General General: Alert and oriented X 3, No acute distress, Well developed/nourished - HEENT HEENT: PERRL, Moist mucous membranes - Neck Neck: Supple, no meningeal sign - Cardiac Cardiac: RRR, Strong equal pulses - Respiratory Respiratory: No respiratory distress, Clear bilaterally - Abdomen Abdomen: Soft, Non tender, Non distended - Derm Derm: Warm and dry - Extremities Extremities: Other (Left leg is shortened and externally rotated. Neurovascularly intact) - Neuro Neuro: Alert and oriented X 3 - Psych Psych: Normal mood, Normal affect Results - Vitals Vitals: Vital Signs - 24 hr 05/06/21 05/06/21 05/06/21 14:22 14:59 15:01 Temperature 36.3 C L Heart Rate 78 78 75 Respiratory 16 17 14 Rate Blood Pressure 117/71 111/71 103/67 O2 Saturation 97 98 98 05/06/21 05/06/21 05/06/21 15:11 15:12 15:15 Temperature Heart Rate 74 79 74 Respiratory 14 12 14 Rate Blood Pressure 106/61 98/57 L 98/57 L O2 Saturation 98 98 98 05/06/21 05/06/21 05/06/21 15:19 15:21 15:31 Temperature Heart Rate 77 80 76 Respiratory 14 16 18 Rate Blood Pressure 93/52 L 102/54 L O2 Saturation 96 99 05/06/21 15:37 Temperature Heart Rate 78 Respiratory 17 Rate Blood Pressure 126/72 O2 Saturation 99 Oxygen O2 Source Room air - Rads (name of study) Left hip x-ray Radiology: Final report received, EMP read contemporaneously, See rad report Postreduction Radiology: Final report received, EMP read contemporaneously, See rad report Procedures - Reduction Body part reduced: Left, Hip, prosthetic Fracture or dislocation: Dislocation Anesthesia: Other (Propofol) Hip reduction technique: Fulcrum Reduction aftercare: NV intact, Xray confirms reduction, Alignment improved, Splint applied (knee immobilizer), Patient tolerated well - Procedural sedation Sedation prep: Informed consent, Last meal (2.5 hrs MAGNETIC RESONANCE TECHNOLOGIST), ASA 2 - mild disease Sedation Medications: propofol Mallampati classification: II Patient status during sedation: Unresponsive, Hypoxia (supplemental O2 given) Sedation recovery: Recovered uneventfully, Back to baseline Time in sedation (Minutes): 20 PD MEDICAL DECISION MAKING - ED course Complexity details: reviewed results, re-evaluated patient, considered differential, d/w patient, d/w senior information security consultant ED course: 56-year-old female with a recurrent left hip dislocation. Discussed the case with her orthopedist, Dr. Mckinnon, he will follow up in clinic on with the patient. He is planning to schedule her for surgery within the next week. Images were pushed to the [facility] for his review. Patient placed in a knee immobilizer to prevent bending of the knee to see if this helps for recurrent dislocations. The hip was reduced under propofol sedation. Tolerated well. Patient counseled regarding signs and symptoms for which I believe and urgent re-evaluation would be necessary. Patient with good understanding of and agreement to plan and is comfortable going home at this time This document was made in part using voice recognition software. While efforts are made to proofread this document, sound alike and grammatical errors may occur. Departure - Departure Disposition: 01 Home, Self Care Clinical Impression: Recurrent dislocation of hip joint prosthesis Qualifiers: Encounter type: initial encounter Qualified Code(s): T84.029A - Dislocation of unspecified internal joint prosthesis, initial encounter Condition: Good Instructions: ED Hip Replace Dislocation Reduc Follow-Up: Tai Mckinnon MD [Physician No Access] - 05/09/21 Comments: Please follow-up with Dr. Mckinnon on as scheduled. Stay in the knee immobilizer. Return if you worsen. Discharge Date/Time: 05/06/21 16:46
--- NOTE | 2021-05-06 16:09 | XRAY Report ---
PROCEDURE: Pelvis 1 View INDICATIONS: HIP REDUCTION TECHNIQUE: 1 view of the pelvis acquired. COMPARISON: Left hip radiographs 05/06/2021 and 05/03/2021 FINDINGS: Bones: Status post reduction of left hip arthroplasty with yarsanism of normal alignment on this si ngle AP view. The metallic hardware appears to be intact. No acute osseous abnormality is seen. Posts urgical changes are seen projecting over the sacrum. Soft tissues: Visualized bowel gas pattern is normal. Heterotopic ossifications are seen surrounding the left hip. IMPRESSION: Status post left hip arthroplasty reduction with improved alignment. Reviewed by: Aneudy Telles MD on 05/06/2021 4:08 PM PDT Approved by: Aneudy Telles MD on 05/06/2021 4:08 PM PDT Station ID: [id number]
== END 2021-05-06 16:46 | disposition home or self-care (01) ==
LOC: EDUNIT# → ED 14:22
DX: T84.021A Dislocation of internal left hip prosthesis, initial encounter (principal); X58.XXXA Exposure to other specified factors, initial encounter; Y93.89 Activity, other specified; Y92.003 Bedroom of unspecified non-institutional (private) residence as the place of occurrence of the external cause; Z66 Do not resuscitate
CPT/HCPCS: 27265; 72170; 73502; 96374; 99152; 99284; J1170; 94770

== ENCOUNTER 2021-05-16 06:52 | Outpatient (CLI) | payer MEDICARE, MEDICAID | END 2021-05-16 06:53 | disposition critical access hospital (66) | LOC: EMS 06:52 | DX: R56.9 Unspecified convulsions (principal) | CPT/HCPCS: A0425; A0427 ==

== ENCOUNTER 2021-05-16 07:05 | Emergency (ER) | payer MEDICARE, MEDICAID ==
--- NOTE | 2021-05-16 07:24 | ED Physician Documentation ---
PD HPI ALTERED MENTAL STATUS - Stated complaint Stated Complaint: SEIZURES - Chief complaint Chief Complaint: Neuro - History obtained from History obtained from: EMS - Additional information Additional information: 56-year-old woman with known seizure disorder presents after reportedly 2 seizures this morning. Initially all of the history is from the paramedics given patient's altered mental status and postictal state. Reportedly had 2 seizures this morning consisting of a left upward gaze. Received 2.5 mg of Versed prior to arrival. She is maintained on Keppra and potentially phenytoin as well for seizures. She was admitted here for status epilepticus about 4 months ago. 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: Ovarian cancer : Incontinence, Chronic bladder infection, Renal insuffiency, Nocturia, Frequency, Kidney stones, Other HEENT: Chronic sinusitis Psych: Depression Musculoskeletal: Osteoarthritis, Osteoporosis, Fatigue, Chronic back pain, Other Derm: Psoriasis - Past Surgical History Past Surgical History: Yes General: Appendectomy Ortho: Hip replacement, Spine surgery /APPLE SORTER: 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, Oophrectomy - Present Medications Home Medications: Ambulatory Orders Medication Instructions Recorded Confirmed Omeprazole [PriLOSEC] 20 mg PO BID 02/09/18 03/19/21 Cetirizine [ZyrTEC] 10 mg PO DAILY 09/06/18 03/19/21 Melatonin 10 mg PO QPM PRN 09/06/18 03/19/21 diphenhydrAMINE [Benadryl] 25 mg PO DAILY PRN 09/14/18 03/19/21 Spironolactone 50 mg PO BID 04/09/19 03/19/21 Butalb/Acetaminophen/Caffeine 1 cap PO DAILY PRN 02/20/20 03/19/21 [Vonfex-Yhkprunz-Xtmg 50-300-40] Ondansetron [Ondansetron Odt] 8 mg PO TID PRN 05/16/20 03/19/21 Oxycodone HCl/Acetaminophen 1 tab PO Q4HR PRN 06/13/20 03/19/21 [Oxycodone-Acetaminophen 10-325] levETIRAcetam [Roweepra] 1,000 mg PO BID 06/13/20 03/19/21 Atorvastatin [Lipitor] 20 mg PO QPM 12/25/20 03/19/21 Cholecalciferol (Vitamin D3) 1,250 mcg PO .QWEEK 12/25/20 03/19/21 [Vitamin D3] Clobetasol 0.05% Oint [Temovate 1 appful TOP TID PRN 12/25/20 03/19/21 0.05% Oint] Desonide 1 appful TOP BID 12/25/20 03/19/21 Magnesium Citrate 100 mg PO DAILY 12/25/20 03/19/21 Pregabalin [Lyrica] 75 mg PO TID 12/25/20 03/19/21 Prochlorperazine Maleate 10 mg PO Q4HR PRN #15 tab 01/21/21 03/19/21 [Compazine] carvediloL [Carvedilol] 25 mg PO Q12H 03/11/21 03/19/21 Phenytoin [Dilantin] 4 tab QPM 05/16/21 05/16/21 amLODIPine [Norvasc] 10 mg DAILY 05/16/21 05/16/21 carvediloL [Coreg] 1 tab BID 05/16/21 05/16/21 methocarbamoL [Robaxin] 1,000 mg PO QID 05/16/21 - Allergies Allergies/Adverse Reactions: Allergies Allergy/AdvReac Type Severity Reaction Status Date / Time Penicillins Allergy Severe Respiratory Verified 05/16/21 07:14 bacitracin Allergy Mild Hives Verified 05/16/21 07:14 [From Neosporin ([id number])] bacitracin zinc * Allergy Mild Itching Verified 05/16/21 07:14 [From Neosporin ([id number])] neomycin sulfate * Allergy Mild Itching Verified 05/16/21 07:14 [From Neosporin ([id number]-[id number])] lamotrigine Allergy Itching Verified 05/16/21 07:14 venom-honey bee Allergy Unknown Verified 05/16/21 07:14 [bee venom (honey bee)] ciprofloxacin AdvReac Emesis Verified 05/16/21 07:14 doxycycline AdvReac Nausea Verified 05/16/21 07:14 - Social History Does the pt smoke?: No Smoking Status: Former smoker Does the pt drink ETOH?: No Does the pt have substance abuse?: No - Immunizations Immunizations are current?: Yes - POLST Patient has POLST: Yes POLST Status: DNR PD ED PE NORMAL - Vitals Vital signs reviewed: Yes - General General: Other (She will awaken to voice and mumble and answer questions, but she is disoriented to situation and time.) - HEENT HEENT: PERRL, EOMI - Neck Neck: Supple, no meningeal sign, No bony TTP - Cardiac Cardiac: RRR, No murmur - Respiratory Respiratory: No respiratory distress, Clear bilaterally - Abdomen Abdomen: Soft, Non tender - Back Back: No CVA TTP, No spinal TTP - Derm Derm: Normal color, Warm and dry - Neuro Neuro: Other (She is moving both legs spontaneously. She will squeeze my hand on the right upper extremity. She does not respond to pain nor does she follow commands in the left upper extremity.) Eye Opening: To Voice Motor: Obeys Commands Verbal: Confused GCS Score: 13 Results - Vitals Vitals: Vital Signs - 24 hr 05/16/21 05/16/21 05/16/21 07:09 07:16 08:15 Temperature 35.9 C L Heart Rate 112 H 108 H 106 H Respiratory 18 17 19 Rate Blood Pressure 126/88 H 126/88 H 145/88 H O2 Saturation 94 100 96 05/16/21 05/16/21 05/16/21 08:30 09:00 09:30 Temperature Heart Rate 96 100 94 Respiratory 16 16 18 Rate Blood Pressure 143/95 H 153/87 H 133/84 H O2 Saturation 97 97 98 Oxygen O2 Source Room air - Labs Labs: Laboratory Tests 05/16/21 05/16/21 07:37 07:37 WBC 14.9 H RBC 4.08 L Hgb 12.3 Hct 39.3 MCV 96.3 MCH 30.1 MCHC 31.3 L RDW 13.9 Plt Count 525 H MPV 9.7 Neut # (Auto) 13.0 H Lymph # (Auto) 0.9 L Clare # (Auto) 0.6 Eos # (Auto) 0.1 Baso # (Auto) 0.1 Absolute Nucleated RBC 0.02 Nucleated RBC % 0.1 Sodium 137 Potassium 3.9 Chloride 102 Carbon Dioxide 21 Anion Gap 14.0 H BUN 10 Creatinine 0.9 Estimated GFR (MDRD) 65 L Glucose 226 H Calcium 9.4 Magnesium 2.0 Phenytoin 6.8 Ethyl Alcohol < 5.0 PD MEDICAL DECISION MAKING - ED course ED course: 56-year-old woman with recurrent seizure disorder presents having had apparent seizure this morning. She was postictal on arrival but subsequently returned to full and normal mental status with normal neurologic exam. She was subtherapeutic on her Dilantin and this was corrected with an IV drip. Discussed with her that review of the chart shows that every Dilantin level shows that she is persistently subtherapeutic and this should be discussed with her neurologist and she verbalizes understanding. Departure - Departure Disposition: 01 Home, Self Care Condition: Good Record reviewed to determine appropriate education?: Yes Instructions: ED Seizure Recurrent Comments: Dilantin/phenytoin level today was a bit low at 6.8. Follow-up with your neurologist for consideration for increasing your dosing. Return for new or worsening symptoms. You did receive IV dose of phenytoin here.
[2021-05-16 07:43] LABS: BASOPHILS # (AUTO) 0.1 10^3/uL (0.0-0.1); BASOPHILS % (AUTO) 0.5 %; EOSINOPHILS # (AUTO) 0.1 10^3/uL (0.0-0.7); EOSINOPHILS % (AUTO) 0.9 %; HCT - HEMATOCRIT 39.3 % (37.0-47.0); HGB - HEMOGLOBIN 12.3 g/dL (12.0-16.0); LYMPHOCYTES # (AUTO) 0.9 10^3/uL (1.5-3.5); LYMPHOCYTES % (AUTO) 5.8 %; MEAN CORPUSCULAR HEMOGLOBIN 30.1 pg (27.0-31.0); MEAN CORPUSCULAR HGB CONC 31.3 g/dL (32.0-36.0); MEAN CORPUSCULAR VOLUME 96.3 fL (81.0-99.0); MEAN PLATELET VOLUME 9.7 fL (7.9-10.8); MONOCYTES # (AUTO) 0.6 10^3/uL (0.0-1.0); MONOCYTES % (AUTO) 4.2 %; NEUTROPHILS % (AUTO) 87.1 %; NRBC ABSOLUTE COUNT (AUTO) 0.02 x10^3/uL; NUCLEATED RED BLOOD CELLS AUTO 0.1 /100WBC; PLT - PLATELET COUNT 525 10^3/uL (130-450); RED BLOOD COUNT 4.08 10^6/uL (4.20-5.40); RED CELL DISTRIBUTION WIDTH 13.9 % (12.0-15.0); WHITE BLOOD COUNT 14.9 x10^3/uL (4.8-10.8)
[2021-05-16 07:50] LABS: BUN - BLOOD UREA NITROGEN 10 mg/dL (6-20); CALCIUM 9.4 mg/dL (8.5-10.3); CARBON DIOXIDE - CO2 21 mmol/L (21-32); CHLORIDE 102 mmol/L (101-111); CREATININE 0.9 mg/dL (0.4-1.0); ETOH - ETHANOL < 5.0 mg/dL; GFR - MDRD 65 (>89); GLUCOSE 226 mg/dL (70-100); PHENYTOIN (DILANTIN) 6.8 ug/mL; POTASSIUM 3.9 mmol/L (3.5-5.0); SODIUM 137 mmol/L (135-145)
[2021-05-16] MEDS ORDERED: PHENYTOIN IV STA ×2 (08:09→08:33)
[2021-05-16] MEDS ORDERED: SODIUM CHLORIDE 0.9% IV STA ×2 (08:09→08:33)
[2021-05-16 09:43] VITALS: BP 133/84
--- NOTE | 2021-05-16 09:44 | CT Report ---
PROCEDURE: HEAD WO INDICATIONS: sz TECHNIQUE: Noncontrast 4.5 mm thick angled axial sections acquired from the foramen magnum to the vertex. For r adiation dose reduction, the following was used: automated exposure control, adjustment of mA and/or kV according to patient size. COMPARISON: None. FINDINGS: Image quality: Motion is present on multiple sequences, limiting areas of the lesion. CSF spaces: Basal cisterns are patent. No extra-axial fluid collections. Ventricles are normal in size and shape. Brain: No midline shift. No intracranial masses or hemorrhage. Pablo-white matter interface is norm al. Skull and face: Calvarium and visualized facial bones are intact, without suspicious lesions. Sinuses: Visualized sinuses demonstrate near complete opacification secondary to mucosal thickening and fluid within the right maxillary sinus. IMPRESSION: 1. No acute intracranial process. Reviewed by: Rama Leyva MD on 05/16/2021 9:43 AM PDT Approved by: Rama Leyva MD on 05/16/2021 9:43 AM PDT Station ID: [id number]
[2021-05-16] MEDS ORDERED: BUTALB/ACETAM/CAFF 50/325/40MG TABLET PO STA (10:29)
== END 2021-05-16 10:45 | disposition home or self-care (01) ==
LOC: EDUNIT# → ED 07:05
DX: G40.901 Epilepsy, unspecified, not intractable, with status epilepticus (principal); I10 Essential (primary) hypertension; Z87.891 Personal history of nicotine dependence
CPT/HCPCS: 36415; 70450; 80048; 80185; 83735; 85025; 96365; 99283; 99284; A9270; G0480; J7040; 80320

== ENCOUNTER 2021-06-05 07:57 | Outpatient (CLI) | payer MEDICARE, MEDICAID | END 2021-06-05 07:58 | disposition critical access hospital (66) | LOC: EMS 07:57 | DX: R10.10 Upper abdominal pain, unspecified (principal); R11.10 Vomiting, unspecified; R30.0 Dysuria | CPT/HCPCS: A0425; A0429 ==

== ENCOUNTER 2021-06-05 08:11 | Emergency (ER) | payer MEDICARE, MEDICAID ==
--- NOTE | 2021-06-05 08:40 | ED Physician Documentation ---
PD HPI ABD PAIN - Stated complaint Stated Complaint: ABD PX - Chief complaint Chief Complaint: Abd Pain - History obtained from History obtained from: Patient, EMS - History of Present Illness Timing - onset: How many weeks ago (1) Timing - duration: Weeks (1) Timing - details: Gradual onset, Still present Quality: Aching, Pain Location: LUQ, LLQ (has had pain in left abdomen for a week, associated with nausea, some vomiting, and loose stools, but not overt diarrhea. Also noting some dysuria the past couple of days. feeling weak. Not feverish.) Radiation: Left flank Improved by: No: Vomiting, Position Worsened by: No: Moving, Breathing Associated symptoms: Nausea, Vomiting, Diarrhea, Dysuria, Loss of appetite. No: Fever, Constipation, Weight loss Similar symptoms before: Has not had sx before Recently seen: Surgery (had left hip surgery to "tighten" joint replacement due to recurrent dislocations. She states hip is feeling good and no wound infection. Surgery 3 weeks ago. Onset abd pain 1 week ago. Was on doxy abx for 10 days post operative.) Review of Systems Constitutional: denies: Fever, Chills Nose: denies: Rhinorrhea / runny nose, Congestion Throat: denies: Sore throat Respiratory: denies: Cough GI: reports: Abdominal Pain, Nausea, Vomiting, Diarrhea (mild). denies: Abdominal Swelling, Constipation : reports: Dysuria. denies: Discharge Skin: denies: Rash, Lesions Neurologic: reports: Generalized weakness. denies: Focal weakness, Numbness, Altered mental status PD PAST MEDICAL HISTORY - Past Medical History Cardiovascular: Hypertension, High cholesterol Respiratory: Asthma, Pneumonia Neuro: TIA, Headaches, Migraines, Peripheral neuropathy, Seizure disorder, Other Endocrine/Autoimmune: HyPOthyroidism, Systemic lupus erythematosus GI: GERD, Ulcers, C.difficile, Other RENEWABLE ENERGY BROKER: Ovarian cancer : Incontinence, Chronic bladder infection, Renal insuffiency, Nocturia, Frequency, Kidney stones, Other HEENT: Chronic sinusitis Psych: Depression Musculoskeletal: Osteoarthritis, Osteoporosis, Fatigue, Chronic back pain, Other Derm: Psoriasis - Past Surgical History Past Surgical History: Yes General: Appendectomy Ortho: Hip replacement, Spine surgery /RENEWABLE ENERGY BROKER: 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, Oophrectomy - Present Medications Home Medications: Ambulatory Orders Medication Instructions Recorded Confirmed Omeprazole [PriLOSEC] 20 mg PO BID 02/09/18 06/05/21 Cetirizine [ZyrTEC] 10 mg PO DAILY 09/06/18 06/05/21 Melatonin 10 mg PO QPM PRN 09/06/18 06/05/21 diphenhydrAMINE [Benadryl] 50 mg PO QID PRN 09/14/18 06/05/21 Spironolactone 50 mg PO BID 04/09/19 06/05/21 Butalb/Acetaminophen/Caffeine 1 cap PO Q6HR PRN 02/20/20 06/05/21 [Lamgsz-Ybelqsrj-Vosw 50-300-40] Ondansetron [Ondansetron Odt] 8 mg PO TID PRN 05/16/20 06/05/21 levETIRAcetam [Roweepra] 1,000 mg PO BID 06/13/20 06/05/21 Atorvastatin [Lipitor] 20 mg PO QPM 12/25/20 06/05/21 Cholecalciferol (Vitamin D3) 1,250 mcg PO .QWEEK 12/25/20 06/05/21 [Vitamin D3] Clobetasol 0.05% Oint [Temovate 1 appful TOP TID PRN 12/25/20 06/05/21 0.05% Oint] Desonide 1 appful TOP BID 12/25/20 06/05/21 Magnesium Citrate 100 mg PO DAILY 12/25/20 06/05/21 Pregabalin [Lyrica] 75 mg PO TID 12/25/20 06/05/21 carvediloL [Carvedilol] 25 mg PO Q12H 03/11/21 06/05/21 Phenytoin [Dilantin] 400 mg ORAL QPM 05/16/21 06/05/21 amLODIPine [Norvasc] 10 mg DAILY 05/16/21 06/05/21 methocarbamoL [Robaxin] 1,000 mg PO QID 05/16/21 06/05/21 Metoclopramide HCl [Metoclopramide 10 mg PO Q6H PRN #20 tab 06/05/21 HCl Odt] Potassium Citrate [Potassium 30 meq PO DAILY 06/05/21 06/05/21 Citrate ER] Prochlorperazine Maleate 10 mg PO QID PRN 06/05/21 06/05/21 [Compazine] Saccharomyces Boulardii [Florastor] 500 mg PO BIDWM 10 Days #20 cap 06/05/21 cephALEXin [Keflex] 500 mg PO TID #20 cap 06/05/21 metroNIDAZOLE [Flagyl] 250 mg PO Q8H #20 tablet 06/05/21 oxyCODONE [Roxicodone] 10 mg PO Q6H PRN 06/05/21 06/05/21 - Allergies Allergies/Adverse Reactions: Allergies Allergy/AdvReac Type Severity Reaction Status Date / Time Penicillins Allergy Severe Respiratory Verified 06/05/21 08:19 bacitracin Allergy Mild Hives Verified 06/05/21 08:19 [From Neosporin ([id number])] bacitracin zinc * Allergy Mild Itching Verified 06/05/21 08:19 [From Neosporin ([id number])] neomycin sulfate * Allergy Mild Itching Verified 06/05/21 08:19 [From Neosporin ([id number])] lamotrigine Allergy Itching Verified 06/05/21 08:19 sumatriptan [From Imitrex] Allergy Unknown Verified 06/05/21 08:19 venom-honey bee Allergy Unknown Verified 06/05/21 08:19 [bee venom (honey bee)] ciprofloxacin AdvReac Emesis Verified 06/05/21 08:19 doxycycline AdvReac Nausea Verified 06/05/21 08:19 - Social History Does the pt smoke?: No Smoking Status: Former smoker Does the pt drink ETOH?: No Does the pt have substance abuse?: No - Immunizations Immunizations are current?: Yes - POLST Patient has POLST: Yes POLST Status: DNR PD ED PE NORMAL - Vitals Vital signs reviewed: Yes - General General: Alert and oriented X 3, No acute distress, Well developed/nourished - HEENT HEENT: Pharynx benign - Neck Neck: Supple, no meningeal sign, No adenopathy - Cardiac Cardiac: RRR, No murmur - Respiratory Respiratory: Clear bilaterally - Abdomen Abdomen: Soft, Non distended, No organomegaly, Other (tender left abdomen without rebound nor percussion tendernss. ). No: Normal bowel sounds (diminished) - Female Female : Deferred - Rectal Rectal: Deferred - Back Back: No CVA TTP - Derm Derm: Normal color, Warm and dry, Other (lateral left hip with well healing incisional wound without infection nor tenderness. ) Results - Vitals Vitals: Vital Signs - 24 hr 06/05/21 06/05/21 08:19 12:22 Temperature 36.9 C Heart Rate 99 96 Respiratory 18 23 Rate Blood Pressure 161/103 H 206/106 H O2 Saturation 96 97 Oxygen O2 Source Room air - Labs Labs: Laboratory Tests 06/05/21 06/05/21 06/05/21 09:20 09:20 11:44 WBC 11.0 H RBC 4.83 Hgb 13.5 Hct 42.3 MCV 87.6 MCH 28.0 MCHC 31.9 L RDW 12.7 Plt Count 376 MPV 10.3 Neut # (Auto) 8.5 H Lymph # (Auto) 1.7 [place] # (Auto) 0.5 Eos # (Auto) 0.1 Baso # (Auto) 0.1 Absolute Nucleated RBC 0.00 Nucleated RBC % 0.0 Sodium 137 Potassium 3.6 Chloride 105 Carbon Dioxide 15 L Anion Gap 17.0 H BUN 10 Creatinine 0.7 Estimated GFR (MDRD) 87 L Glucose 128 H Calcium 10.0 Magnesium 1.9 Total Bilirubin 1.1 H AST 20 ALT 16 Alkaline Phosphatase 170 H Total Protein 8.5 H Albumin 4.9 Globulin 3.6 Albumin/Globulin Ratio 1.4 Lipase 19 L Urine Color YELLOW Urine Clarity SL. CLOUDY Urine pH 6.0 Ur Specific [place] 1.025 Urine Protein 30 H Urine Glucose (UA) NEGATIVE Urine Ketones >=80 H Urine Occult Blood LARGE H Urine Nitrite POSITIVE H Urine Bilirubin NEGATIVE Urine Urobilinogen 0.2 (NORMAL) Ur Leukocyte Esterase TRACE H Urine RBC 11-25 H Urine WBC >25 H Ur Squamous Epith Cells MANY Squamous H Urine Bacteria Moderate H Ur Microscopic Review INDICATED Urine Culture Comments NOT INDICATED Phenytoin 7.3 - Rads (name of study) abd CT Radiology: Prelim report reviewed (descending and sigmoid colitis. No abscess nor perforation. ), See rad report PD MEDICAL DECISION MAKING - ED course Complexity details: reviewed results (has positive UA c/w UTI, but also CT showing colitis. She has had C.Diff in the past, so consider early that versus colitis s/p doxy. She will need Rx for UTI but can cover for possible early colitis/c.diff with flagyl and probiotics too. ), re-evaluated patient (feeling improved with fluids and meds here. Her IV blew in CT, and she opted to go with IM meds after back from imaging. She would prefer being discharged. To return if worse. Discussed med regimen with her in detail. ), considered differential (consider colitis, diverticulitis, pyelo, other concerns. ), d/w patient Departure - Departure Disposition: 01 Home, Self Care Clinical Impression: Colitis, acute, Abdominal pain, left lateral UTI (urinary tract infection) Qualifiers: Urinary tract infection type: site unspecified Hematuria presence: without hematuria Qualified Code(s): N39.0 - Urinary tract infection, site not specified Nausea and vomiting Qualifiers: Vomiting type: unspecified Vomiting Intractability: non-intractable Qualified Code(s): R11.2 - Nausea with vomiting, unspecified Condition: Stable Record reviewed to determine appropriate education?: Yes Instructions: ED UTI Cystitis Female, ED Nausea Vomiting Follow-Up: EBONY GU DO [Primary Care Provider] - Prescriptions: metroNIDAZOLE [Flagyl] 250 mg PO Q8H #20 tablet Saccharomyces Boulardii [Florastor] 500 mg PO BIDWM 10 Days #20 cap cephALEXin [Keflex] 500 mg PO TID #20 cap Metoclopramide HCl [Metoclopramide HCl Odt] 10 mg PO Q6H PRN #20 tab PRN Reason: Nausea / Vomiting Comments: Use Reglan ODT every 6 hours as needed for nausea. This is similar to the Compazine. You do have signs of a urinary tract infection on urine test and also some colitis (inflammation of the descending and sigmoid colon) on CT scan. I would suggest treating this with both cephalexin and Flagyl 3 times a day with food for the next week. Also add probiotics 2-3 times daily over the next week to 10 days to help with the colitis. Tylenol if needed for pains. Continue your other usual medicines. Return if not improving well over the next couple of days and worsening symptoms. I transmitted your prescriptions to [facility] pharmacy. Discharge Date/Time: 06/05/21 13:47
[2021-06-05] MEDS ORDERED: ONDANSETRON 4 MG/2 ML VIAL IVP STA (08:51)
[2021-06-05] MEDS ORDERED: HYDROmorphone 1 MG/ML CARPUJECT IVP STA (08:51)
[2021-06-05] MEDS ORDERED: KETOROLAC 15 MG/ML VIAL IVP STA (08:51)
[2021-06-05] MEDS ORDERED: SODIUM CHLORIDE 0.9% 1,000 ML IV STA (08:51)
[2021-06-05] MEDS ORDERED: PHENYTOIN 100 MG/2 ML VIAL IVP STA (08:52)
[2021-06-05] MEDS ORDERED: levETIRAcetam INJ 500 MG in SODIUM CHLORIDE 0.9% 100ML 100 ML IV STA (08:52)
[2021-06-05] MEDS ORDERED: IOVERSOL 320 100 ML VIAL IVP ONE ×2 (09:04→13:56)
[2021-06-05] MEDS ORDERED: PHENYTOIN INJ 300 MG in SODIUM CHLORIDE 0.9% 100ML 100 ML IV STA (09:25)
[2021-06-05] MEDS ORDERED: PHENYTOIN INJ 300 MG in SODIUM CHLORIDE 0.9% 50 ML IV STA (09:39)
[2021-06-05 09:43] LABS: BASOPHILS # (AUTO) 0.1 10^3/uL (0.0-0.1); BASOPHILS % (AUTO) 0.5 %; EOSINOPHILS # (AUTO) 0.1 10^3/uL (0.0-0.7); EOSINOPHILS % (AUTO) 1.3 %; HCT - HEMATOCRIT 42.3 % (37.0-47.0); HGB - HEMOGLOBIN 13.5 g/dL (12.0-16.0); LYMPHOCYTES # (AUTO) 1.7 10^3/uL (1.5-3.5); LYMPHOCYTES % (AUTO) 15.8 %; MEAN CORPUSCULAR HGB CONC 31.9 g/dL (32.0-36.0); MEAN CORPUSCULAR VOLUME 87.6 fL (81.0-99.0); MEAN PLATELET VOLUME 10.3 fL (7.9-10.8); MONOCYTES # (AUTO) 0.5 10^3/uL (0.0-1.0); MONOCYTES % (AUTO) 4.6 %; NEUTROPHILS # (AUTO) 8.5 10^3/uL (1.5-6.6); NEUTROPHILS % (AUTO) 77.3 %; PLT - PLATELET COUNT 376 10^3/uL (130-450); RED BLOOD COUNT 4.83 10^6/uL (4.20-5.40); RED CELL DISTRIBUTION WIDTH 12.7 % (12.0-15.0)
[2021-06-05 10:18] LABS: ALBUMIN 4.9 g/dL (3.2-5.5); ALBUMIN/GLOBULIN RATIO 1.4 (1.0-2.2); BILIRUBIN,TOTAL 1.1 mg/dL (0.2-1.0); CREATININE 0.7 mg/dL (0.4-1.0); MAGNESIUM 1.9 mg/dL (1.7-2.8); POTASSIUM 3.6 mmol/L (3.5-5.0); TOTAL PROTEIN 8.5 g/dL (6.7-8.2)
[2021-06-05 10:27] LABS: PHENYTOIN (DILANTIN) 7.3 ug/mL
[2021-06-05] MEDS ORDERED: HYDROmorphone 2 MG/ML VIAL IM STA (11:41)
--- NOTE | 2021-06-05 11:47 | CT Report ---
PROCEDURE: Abdomen/Pelvis WO INDICATIONS: LLQ pain, diverticulitis suspected TECHNIQUE: Noncontrast 5 mm thick sections acquired from the diaphragms to the symphysis. 5 mm coronal and sagi ttal reformats were then performed. For radiation dose reduction, the following was used: automated exposure control, adjustment of mA and/or kV according to patient size. COMPARISON: CT abdomen pelvis 10/31/2019, 11/05/2018 FINDINGS: Image quality: There is limited visualization of the pelvis secondary to artifact from hip arthroplas ty. ABDOMEN: Lung bases: Stable 3 mm right basilar nodules since 2019. Heart size is normal. Solid organs: Liver and spleen are normal in size. Gallbladder has been removed Pancreas is normal in contours. No adrenal nodules. Kidneys are without hydronephrosis or nephrolithiasis. Peritoneum and bowel: Unenhanced bowel loops are nonobstructive. There is a thickened appearance of the descending as well as portions of the transverse colon into a left prominent appearance in the si gmoid colon. There is minimal to no surrounding inflammatory change. No free fluid or air. Nodes and vessels: No retroperitoneal or mesenteric adenopathy by size criteria. Aorta and inferior vena cava are normal in caliber. Miscellaneous: No ventral hernias. Asymmetric left psoas fatty infiltration is noted. In addition, asymmetric fatty atrophy of the musculature within the left hip is also present. PELVIS: Genitourinary: Bladder wall thickness is normal. Miscellaneous: No inguinal hernias or adenopathy. Bones: No suspicious bony lesions. No vertebral body compression fractures. IMPRESSION: 1. Thickened appearance of the transverse, descending and to a lesser degree sigmoid colon. There is very minimal surrounding inflammatory change. Appearance could be secondary to very early colitis rodriguez lizy incomplete distention and clinical correlation is recommended. 2. Unchanged 3 mm right lower lobe nodule, stable since 2019 and likely benign. Reviewed by: Rama Leyva MD on 06/05/2021 11:45 AM PDT Approved by: Rama Leyva MD on 06/05/2021 11:45 AM PDT Station ID: [id number]
[2021-06-05] MEDS ORDERED: ONDANSETRON 4 MG/2 ML VIAL IM STA (11:48)
[2021-06-05 12:02] LABS: BILIRUBIN,URINE NEGATIVE (NEGATIVE); GLUCOSE, URINE (UA) NEGATIVE (NEGATIVE); KETONES,URINE (UA) >=80 mg/dL (NEGATIVE); LEUKOCYTE ESTERASE, URINE TRACE (NEGATIVE); NITRITE,URINE POSITIVE (NEGATIVE); OCCULT BLOOD,URINE LARGE (NEGATIVE); PROTEIN,URINE 30 mg/dL (NEGATIVE); UROBILINOGEN,URINE 0.2 (NORMAL) E.U./dL (NORMAL)
[2021-06-05 12:05] LABS: CLARITY,URINE SL. CLOUDY (CLEAR)
[2021-06-05 12:19] LABS: BACTERIA,URINE Moderate /HPF (None Seen); SQUAMOUS EPITHELIAL CELL,UR MANY Squamous (<= Few); WBC,URINE >25 /HPF (0-5)
[2021-06-05] MEDS ORDERED: PROCHLORPERAZINE 10 MG/2 ML VIAL IM STA (12:44)
[2021-06-05] MEDS ORDERED: cephALEXin 250 MG CAPSULE PO STA (13:27)
[2021-06-05 13:47] VITALS: BP 206/106
== END 2021-06-05 13:47 | disposition home or self-care (01) ==
LOC: EDUNIT# → ED 08:11
DX: K52.9 Noninfective gastroenteritis and colitis, unspecified (principal); N39.0 Urinary tract infection, site not specified; R11.2 Nausea with vomiting, unspecified; Z87.19 Personal history of other diseases of the digestive system; Z85.43 Personal history of malignant neoplasm of ovary; I10 Essential (primary) hypertension; M32.9 Systemic lupus erythematosus, unspecified; Z96.642 Presence of left artificial hip joint; Z87.891 Personal history of nicotine dependence; Z66 Do not resuscitate
CPT/HCPCS: 36415; 74176; 80053; 80185; 81001; 83690; 83735; 85025; 96365; 96372; 96375; 99284; 99285; A9270; J1170; J7040; Q9967; 81003; 87086

== ENCOUNTER 2021-06-06 04:38 | Outpatient (CLI) | payer MEDICARE, MEDICAID | END 2021-06-06 04:39 | disposition critical access hospital (66) | LOC: EMS 04:38 | DX: R11.2 Nausea with vomiting, unspecified (principal) | CPT/HCPCS: A0425; A0429 ==

== ENCOUNTER 2021-06-06 04:50 | Emergency (ER) | payer MEDICARE, MEDICAID ==
[2021-06-06] MEDS ORDERED: HYDROmorphone 1 MG/ML CARPUJECT IVP STA (05:09)
[2021-06-06] MEDS ORDERED: ONDANSETRON 4 MG/2 ML VIAL IVP STA (05:09)
[2021-06-06] MEDS ORDERED: SODIUM CHLORIDE 0.9% 1,000 ML IV STA (05:09)
--- NOTE | 2021-06-06 05:12 | ED Physician Documentation ---
History of Present Illness - Stated complaint Stated Complaint: ABD PX/ VOMITING - Chief complaint Chief Complaint: Abd Pain - History obtained from History obtained from: Patient, EMS, Other (chart review) - Additonal information Additional information: 56yF with recent diagnosis of colitis and uti yesterday, dc'd on flagyl and ceflex, p/w persistent nausea/vomiting, inability to tolerate po, and abdominal pain that is generalized, moderate severity, nonradiating, a/w loose stools. patient was on abx recently after hip surgery. denies watery stool, fever, back pain. +dysuria. She states she was never able to fill the script for nausea medicine she was given yesterday. Review of Systems Ten Systems: 10 systems reviewed and negative Constitutional: reports: Fatigue. 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: Ovarian cancer : Incontinence, Chronic bladder infection, Renal insuffiency, Nocturia, Frequency, Kidney stones, Other HEENT: Chronic sinusitis Psych: Depression Musculoskeletal: Osteoarthritis, Osteoporosis, Fatigue, Chronic back pain, Other Derm: Psoriasis - Past Surgical History Past Surgical History: Yes General: Appendectomy Ortho: Hip replacement, Spine surgery /BRUSH OPERATOR: 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, Oophrectomy - Present Medications Home Medications: Ambulatory Orders Medication Instructions Recorded Confirmed Omeprazole [PriLOSEC] 20 mg PO BID 02/09/18 06/05/21 Cetirizine [ZyrTEC] 10 mg PO DAILY 09/06/18 06/05/21 Melatonin 10 mg PO QPM PRN 09/06/18 06/05/21 diphenhydrAMINE [Benadryl] 50 mg PO QID PRN 09/14/18 06/05/21 Spironolactone 50 mg PO BID 04/09/19 06/05/21 Butalb/Acetaminophen/Caffeine 1 cap PO Q6HR PRN 02/20/20 06/05/21 [Dqllcg-Ecmreocc-Clfg 50-300-40] Ondansetron [Ondansetron Odt] 8 mg PO TID PRN 05/16/20 06/05/21 levETIRAcetam [Roweepra] 1,000 mg PO BID 06/13/20 06/05/21 Atorvastatin [Lipitor] 20 mg PO QPM 12/25/20 06/05/21 Cholecalciferol (Vitamin D3) 1,250 mcg PO .QWEEK 12/25/20 06/05/21 [Vitamin D3] Clobetasol 0.05% Oint [Temovate 1 appful TOP TID PRN 12/25/20 06/05/21 0.05% Oint] Desonide 1 appful TOP BID 12/25/20 06/05/21 Magnesium Citrate 100 mg PO DAILY 12/25/20 06/05/21 Pregabalin [Lyrica] 75 mg PO TID 12/25/20 06/05/21 carvediloL [Carvedilol] 25 mg PO Q12H 03/11/21 06/05/21 Phenytoin [Dilantin] 400 mg ORAL QPM 05/16/21 06/05/21 amLODIPine [Norvasc] 10 mg DAILY 05/16/21 06/05/21 methocarbamoL [Robaxin] 1,000 mg PO QID 05/16/21 06/05/21 Metoclopramide HCl [Metoclopramide 10 mg PO Q6H PRN #20 tab 06/05/21 HCl Odt] Potassium Citrate [Potassium 30 meq PO DAILY 06/05/21 06/05/21 Citrate ER] Prochlorperazine Maleate 10 mg PO QID PRN 06/05/21 06/05/21 [Compazine] Saccharomyces Boulardii [Florastor] 500 mg PO BIDWM 10 Days #20 cap 06/05/21 cephALEXin [Keflex] 500 mg PO TID #20 cap 06/05/21 metroNIDAZOLE [Flagyl] 250 mg PO Q8H #20 tablet 06/05/21 oxyCODONE [Roxicodone] 10 mg PO Q6H PRN 06/05/21 06/05/21 Ondansetron Odt [Zofran Odt] 4 mg TL Q6H PRN #10 tablet 06/06/21 Prochlorperazine [Compazine] 5 mg PO Q6H PRN #15 tablet 06/06/21 - Allergies Allergies/Adverse Reactions: Allergies Allergy/AdvReac Type Severity Reaction Status Date / Time Penicillins Allergy Severe Respiratory Verified 06/05/21 08:19 bacitracin Allergy Mild Hives Verified 06/05/21 08:19 [From Neosporin ([id number])] bacitracin zinc * Allergy Mild Itching Verified 06/05/21 08:19 [From Neosporin ([id number])] neomycin sulfate * Allergy Mild Itching Verified 06/05/21 08:19 [From Neosporin ([id number])] lamotrigine Allergy Itching Verified 06/05/21 08:19 sumatriptan [From Imitrex] Allergy Unknown Verified 06/05/21 08:19 venom-honey bee Allergy Unknown Verified 06/05/21 08:19 [bee venom (honey bee)] ciprofloxacin AdvReac Emesis Verified 06/05/21 08:19 doxycycline AdvReac Nausea Verified 06/05/21 08:19 - Social History Does the pt smoke?: No Smoking Status: Never smoker Does the pt drink ETOH?: No Does the pt have substance abuse?: No - Immunizations Immunizations are current?: Yes - POLST Patient has POLST: Yes POLST Status: DNR PD ED PE NORMAL - Vitals Vital signs reviewed: Yes - General General: Alert and oriented X 3, No acute distress, Well developed/nourished - HEENT HEENT: Atraumatic, PERRL, EOMI - Neck Neck: Supple, no meningeal sign - Cardiac Cardiac: RRR - Respiratory Respiratory: No respiratory distress, Clear bilaterally - Abdomen Abdomen: Other (diffuse discomfort to palpation) - Derm Derm: Normal color - Extremities Extremities: No deformity - Neuro Neuro: Alert and oriented X 3 - Psych Psych: Normal mood, Normal affect Results - Vitals Vitals: Vital Signs - 24 hr 06/06/21 04:57 Temperature 36.4 C L Heart Rate 95 Respiratory 18 Rate Blood Pressure 159/95 H O2 Saturation 99 Oxygen O2 Source Room air - Labs Labs: Laboratory Tests 06/06/21 06/06/21 05:20 05:20 WBC 10.7 RBC 4.45 Hgb 12.7 Hct 39.0 MCV 87.6 MCH 28.5 MCHC 32.6 RDW 13.0 Plt Count 377 MPV 9.4 Neut # (Auto) 7.5 H Lymph # (Auto) 1.9 [place] # (Auto) 1.0 Eos # (Auto) 0.2 Baso # (Auto) 0.1 Absolute Nucleated RBC 0.00 Nucleated RBC % 0.0 Sodium 136 Potassium 2.8 L Chloride 102 Carbon Dioxide 18 L Anion Gap 16.0 H BUN 13 Creatinine 0.8 Estimated GFR (MDRD) 74 L Glucose 163 H Calcium 10.0 Total Bilirubin 1.1 H AST 16 ALT 15 Alkaline Phosphatase 161 H Total Protein 8.0 Albumin 4.7 Globulin 3.3 Albumin/Globulin Ratio 1.4 Lipase 20 L PD MEDICAL DECISION MAKING - ED course ED course: 56yF presents with persistent abdominal symptoms after discharge on antibiotics for colitis/uti yesterday. will obtain repeat labs, treat symptomatically, reevaluate. pain significantly improved s/p meds. nausea resolved. hypokalemic on labs therefore will replete potassium. patient requesting zofran and compazine paper script since she is not sure which pharmacy she wants to use. return precautions given. plan to f/u with pmd. Departure - Departure Disposition: Home, Self Care Clinical Impression: Nausea and vomiting, Abdominal pain, Colitis, UTI (urinary tract infection) Condition: Good Instructions: ED UTI Cystitis Female, Abdominal Pain Prescriptions: Prochlorperazine [Compazine] 5 mg PO Q6H PRN #15 tablet PRN Reason: Nausea / Vomiting Ondansetron Odt [Zofran Odt] 4 mg TL Q6H PRN #10 tablet PRN Reason: Nausea / Vomiting Comments: You were seen in the emergency department for nausea, vomiting, and abdominal pain. Glad you are feeling better! Please fill your prescriptions and introduce foods gradually to your diet. try clear liquids at first, then mild foods. Note that your potassium was low in the emergency department and you were given a potassium supplement. You should follow up with your doctor this week. return to the emergency department if you have any new or worsening symptoms or other concerns.
[2021-06-06 05:35] LABS: BASOPHILS # (AUTO) 0.1 10^3/uL (0.0-0.1); BASOPHILS % (AUTO) 0.6 %; EOSINOPHILS # (AUTO) 0.2 10^3/uL (0.0-0.7); EOSINOPHILS % (AUTO) 1.8 %; HGB - HEMOGLOBIN 12.7 g/dL (12.0-16.0); LYMPHOCYTES # (AUTO) 1.9 10^3/uL (1.5-3.5); LYMPHOCYTES % (AUTO) 17.7 %; MEAN CORPUSCULAR HEMOGLOBIN 28.5 pg (27.0-31.0); MEAN CORPUSCULAR HGB CONC 32.6 g/dL (32.0-36.0); MEAN CORPUSCULAR VOLUME 87.6 fL (81.0-99.0); MEAN PLATELET VOLUME 9.4 fL (7.9-10.8); MONOCYTES % (AUTO) 8.9 %; NEUTROPHILS # (AUTO) 7.5 10^3/uL (1.5-6.6); NEUTROPHILS % (AUTO) 70.4 %; PLT - PLATELET COUNT 377 10^3/uL (130-450); RED BLOOD COUNT 4.45 10^6/uL (4.20-5.40); WHITE BLOOD COUNT 10.7 x10^3/uL (4.8-10.8)
[2021-06-06 05:49] LABS: ALBUMIN 4.7 g/dL (3.2-5.5); ALBUMIN/GLOBULIN RATIO 1.4 (1.0-2.2); BILIRUBIN,TOTAL 1.1 mg/dL (0.2-1.0); CREATININE 0.8 mg/dL (0.4-1.0); POTASSIUM 2.8 mmol/L (3.5-5.0)
[2021-06-06] MEDS ORDERED: POTASSIUM CHLORIDE 20 MEQ/15 ML UDC PO STA (05:55)
[2021-06-06] MEDS: POTASSIUM CHLOR 10 MEQ/100 ML 10 MEQ/100 ML BAG IV SCH ×2 (06:09→06:58)
[2021-06-06] MEDS ORDERED: PROCHLORPERAZINE 5 MG TABLET PO STA (06:21)
[2021-06-06] MEDS ORDERED: HYDROmorphone 2 MG TABLET PO STA (06:21)
[2021-06-06] MEDS ORDERED: POTASSIUM CHLOR 10 MEQ/100 ML 10 MEQ/100 ML BAG IV STA (06:47)
[2021-06-06] MEDS ORDERED: PROCHLORPERAZINE 10 MG/2 ML VIAL IVP STA (08:14)
[2021-06-06 08:23] LABS: GLUCOSE, URINE (UA) NEGATIVE (NEGATIVE); KETONES,URINE (UA) 40 mg/dL (NEGATIVE); LEUKOCYTE ESTERASE, URINE SMALL (NEGATIVE); NITRITE,URINE NEGATIVE (NEGATIVE); OCCULT BLOOD,URINE MODERATE (NEGATIVE); PROTEIN,URINE NEGATIVE (NEGATIVE); UROBILINOGEN,URINE 0.2 (NORMAL) E.U./dL (NORMAL)
[2021-06-06 08:29] VITALS: BP 151/77
[2021-06-06 08:33] LABS: CLARITY,URINE SL. CLOUDY (CLEAR)
[2021-06-06 08:35] LABS: BACTERIA,URINE Few /HPF (None Seen); BILIRUBIN,URINE NEGATIVE (NEGATIVE); ICTOTEST,URINE NEGATIVE; SQUAMOUS EPITHELIAL CELL,UR MANY Squamous (<= Few); WBC,URINE >25 /HPF (0-5)
== END 2021-06-06 08:55 | disposition home or self-care (01) ==
LOC: EDUNIT# → ED 04:50
DX: K52.9 Noninfective gastroenteritis and colitis, unspecified (principal); N39.0 Urinary tract infection, site not specified; E87.6 Hypokalemia; I10 Essential (primary) hypertension; M32.9 Systemic lupus erythematosus, unspecified
CPT/HCPCS: 36415; 80053; 81001; 83690; 85025; 96365; 96366; 96375; 99283; 99284; A9270; J1170; 81003; 87086

== ENCOUNTER 2021-06-14 07:31 | Outpatient (CLI) | payer MEDICARE, MEDICAID | END 2021-06-14 07:32 | disposition critical access hospital (66) | LOC: EMS 07:31 | DX: R10.9 Unspecified abdominal pain (principal); R11.2 Nausea with vomiting, unspecified | CPT/HCPCS: A0425; A0429 ==

== ENCOUNTER 2021-06-14 07:41 | Emergency (ER) | payer MEDICARE, MEDICAID ==
[2021-06-14] MEDS ORDERED: MAG HYDROX/AL HYDROX/SIMETH 30 ML UDC PO STA (08:09)
[2021-06-14] MEDS ORDERED: LIDOCAINE VISCOUS 2% 15 ML UDC MM STA (08:09)
[2021-06-14] MEDS ORDERED: SUCRALFATE 1 GM/10 ML UDC PO STA (08:09)
[2021-06-14] MEDS ORDERED: SODIUM CHLORIDE 0.9% 1,000 ML IV STA (08:09)
[2021-06-14] MEDS ORDERED: PHENYTOIN 100 MG/2 ML VIAL IVP STA (08:14)
[2021-06-14] MEDS ORDERED: PROCHLORPERAZINE 10 MG/2 ML VIAL IVP STA (08:15)
[2021-06-14] MEDS ORDERED: diphenhydrAMINE INJ 50 MG/ML VIAL IVP STA (08:15)
[2021-06-14 08:53] LABS: BASOPHILS # (AUTO) 0.1 10^3/uL (0.0-0.1); BASOPHILS % (AUTO) 0.8 %; EOSINOPHILS # (AUTO) 0.4 10^3/uL (0.0-0.7); EOSINOPHILS % (AUTO) 5.3 %; HCT - HEMATOCRIT 39.8 % (37.0-47.0); HGB - HEMOGLOBIN 12.8 g/dL (12.0-16.0); LYMPHOCYTES # (AUTO) 2.1 10^3/uL (1.5-3.5); LYMPHOCYTES % (AUTO) 26.6 %; MEAN CORPUSCULAR HEMOGLOBIN 27.8 pg (27.0-31.0); MEAN CORPUSCULAR HGB CONC 32.2 g/dL (32.0-36.0); MEAN CORPUSCULAR VOLUME 86.3 fL (81.0-99.0); MEAN PLATELET VOLUME 9.5 fL (7.9-10.8); MONOCYTES # (AUTO) 0.5 10^3/uL (0.0-1.0); MONOCYTES % (AUTO) 6.6 %; NEUTROPHILS # (AUTO) 4.7 10^3/uL (1.5-6.6); NEUTROPHILS % (AUTO) 60.3 %; PLT - PLATELET COUNT 475 10^3/uL (130-450); RED BLOOD COUNT 4.61 10^6/uL (4.20-5.40); WHITE BLOOD COUNT 7.9 x10^3/uL (4.8-10.8)
[2021-06-14 09:07] LABS: ALBUMIN 4.5 g/dL (3.2-5.5); ALBUMIN/GLOBULIN RATIO 1.3 (1.0-2.2); BILIRUBIN,TOTAL 0.7 mg/dL (0.2-1.0); CALCIUM 9.7 mg/dL (8.5-10.3); CREATININE 0.6 mg/dL (0.4-1.0); POTASSIUM 2.8 mmol/L (3.5-5.0); TOTAL PROTEIN 7.9 g/dL (6.7-8.2)
[2021-06-14 09:23] LABS: PHENYTOIN (DILANTIN) 9.2 ug/mL
[2021-06-14] MEDS ORDERED: POTASSIUM CHLOR 10 MEQ/100 ML 10 MEQ/100 ML BAG IV ONE (09:54)
[2021-06-14 09:55] LABS: BILIRUBIN,URINE NEGATIVE (NEGATIVE); GLUCOSE, URINE (UA) NEGATIVE (NEGATIVE); KETONES,URINE (UA) TRACE mg/dL (NEGATIVE); LEUKOCYTE ESTERASE, URINE NEGATIVE (NEGATIVE); NITRITE,URINE NEGATIVE (NEGATIVE); OCCULT BLOOD,URINE TRACE-INTA (NEGATIVE); PROTEIN,URINE NEGATIVE (NEGATIVE); UROBILINOGEN,URINE 0.2 (NORMAL) E.U./dL (NORMAL)
--- NOTE | 2021-06-14 09:55 | ED Physician Documentation ---
PD HPI NVD - Stated complaint Stated Complaint: ABD PX/VOMITING - Chief complaint Chief Complaint: Abd Pain - History obtained from History obtained from: Patient - History of Present Illness Timing - onset: How many weeks ago (1) Timing - duration: Weeks (1) Timing - details: Gradual onset, Still present Associated symptoms: Abdominal pain, Dizzy, Hematuria Contributing factors: Recent antibiotics. No: Sick contact, Bad food, Travel, Alcohol use, Anticoagulated, Diabetes Improved by: Laying still, Vomiting Worsened by: Position, Palpation Similar symptoms before: Diagnosis (colitis) Recently seen: Emergency Dept - Additonal information Additional information: 56-year-old female who is on chronic opiates has developed some abdominal pain and diarrhea and she was seen in the emerge department diagnosed with colitis and put on some antibiotic. She has had continued problems with abdominal pain and vomiting and she is come back to the emergency department. Review of Systems Constitutional: denies: Fever Eyes: denies: Decreased vision Ears: denies: Ear pain Nose: denies: Congestion Throat: denies: Sore throat Cardiac: denies: Chest pain / pressure, Palpitations Respiratory: denies: Dyspnea GI: reports: Abdominal Pain, Nausea, Vomiting : denies: Dysuria, Frequency PD PAST MEDICAL HISTORY - Past Medical History Cardiovascular: Hypertension, High cholesterol Respiratory: Asthma, Pneumonia Neuro: TIA, Headaches, Migraines, Peripheral neuropathy, Seizure disorder, Other Endocrine/Autoimmune: HyPOthyroidism, Systemic lupus erythematosus GI: GERD, Ulcers, C.difficile, 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: Ovarian cancer : Incontinence, Chronic bladder infection, Renal insuffiency, Nocturia, Frequency, Kidney stones, Other HEENT: Chronic sinusitis Psych: Depression Musculoskeletal: Osteoarthritis, Osteoporosis, Fatigue, Chronic back pain, Other Derm: Psoriasis - Past Surgical History Past Surgical History: Yes General: Appendectomy Ortho: Hip replacement, Spine surgery /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: 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, Oophrectomy - Present Medications Home Medications: Ambulatory Orders Medication Instructions Recorded Confirmed Omeprazole [PriLOSEC] 20 mg PO BID 02/09/18 06/05/21 Cetirizine [ZyrTEC] 10 mg PO DAILY 09/06/18 06/05/21 Melatonin 10 mg PO QPM PRN 09/06/18 06/05/21 diphenhydrAMINE [Benadryl] 50 mg PO QID PRN 09/14/18 06/05/21 Spironolactone 50 mg PO BID 04/09/19 06/05/21 Butalb/Acetaminophen/Caffeine 1 cap PO Q6HR PRN 02/20/20 06/05/21 [Akcxev-Ndiezfoo-Fydd 50-300-40] Ondansetron [Ondansetron Odt] 8 mg PO TID PRN 05/16/20 06/05/21 levETIRAcetam [Roweepra] 1,000 mg PO BID 06/13/20 06/05/21 Atorvastatin [Lipitor] 20 mg PO QPM 12/25/20 06/05/21 Cholecalciferol (Vitamin D3) 1,250 mcg PO .QWEEK 12/25/20 06/05/21 [Vitamin D3] Clobetasol 0.05% Oint [Temovate 1 appful TOP TID PRN 12/25/20 06/05/21 0.05% Oint] Desonide 1 appful TOP BID 12/25/20 06/05/21 Magnesium Citrate 100 mg PO DAILY 12/25/20 06/05/21 Pregabalin [Lyrica] 75 mg PO TID 12/25/20 06/05/21 carvediloL [Carvedilol] 25 mg PO Q12H 03/11/21 06/05/21 Phenytoin [Dilantin] 400 mg ORAL QPM 05/16/21 06/05/21 amLODIPine [Norvasc] 10 mg DAILY 05/16/21 06/05/21 methocarbamoL [Robaxin] 1,000 mg PO QID 05/16/21 06/05/21 Metoclopramide HCl [Metoclopramide 10 mg PO Q6H PRN #20 tab 06/05/21 HCl Odt] Potassium Citrate [Potassium 30 meq PO DAILY 06/05/21 06/05/21 Citrate ER] Prochlorperazine Maleate 10 mg PO QID PRN 06/05/21 06/05/21 [Compazine] Saccharomyces Boulardii [Florastor] 500 mg PO BIDWM 10 Days #20 cap 06/05/21 cephALEXin [Keflex] 500 mg PO TID #20 cap 06/05/21 metroNIDAZOLE [Flagyl] 250 mg PO Q8H #20 tablet 06/05/21 oxyCODONE [Roxicodone] 10 mg PO Q6H PRN 06/05/21 06/05/21 Ondansetron Odt [Zofran Odt] 4 mg TL Q6H PRN #10 tablet 06/06/21 Prochlorperazine [Compazine] 5 mg PO Q6H PRN #15 tablet 06/06/21 Prochlorperazine Maleate 10 mg PO Q4HR PRN #20 tab 06/14/21 [Compazine] Sucralfate [Carafate] 1 gm PO ACHS #60 tablet 06/14/21 - Allergies Allergies/Adverse Reactions: Allergies Allergy/AdvReac Type Severity Reaction Status Date / Time Penicillins Allergy Severe Respiratory Verified 06/14/21 07:55 bacitracin Allergy Mild Hives Verified 06/14/21 07:55 [From Neosporin ([id number])] bacitracin zinc * Allergy Mild Itching Verified 06/14/21 07:55 [From Neosporin ([id number])] neomycin sulfate * Allergy Mild Itching Verified 06/14/21 07:55 [From Neosporin ([id number])] lamotrigine Allergy Itching Verified 06/14/21 07:55 sumatriptan [From Imitrex] Allergy Unknown Verified 06/14/21 07:55 venom-honey bee Allergy Unknown Verified 06/14/21 07:55 [bee venom (honey bee)] ciprofloxacin AdvReac Emesis Verified 06/14/21 07:55 doxycycline AdvReac Nausea Verified 06/14/21 07:55 - Social History Does the pt smoke?: No Smoking Status: Never smoker Does the pt drink ETOH?: No Does the pt have substance abuse?: No - Immunizations Immunizations are current?: Yes - POLST Patient has POLST: Yes POLST Status: DNR PD ED PE NORMAL - Vitals Vital signs reviewed: Yes (Tachycardic and hypertensive) - General General: Alert and oriented X 3, No acute distress, Well developed/nourished - HEENT HEENT: Atraumatic, PERRL, EOMI - Neck Neck: Supple, no meningeal sign, No bony TTP - Cardiac Cardiac: RRR, No murmur - Respiratory Respiratory: No respiratory distress, Clear bilaterally - Abdomen Abdomen: Normal bowel sounds, Soft, Non tender, Non distended, No organomegaly - Back Back: No CVA TTP, No spinal TTP - Derm Derm: Normal color, Warm and dry, No rash - Extremities Extremities: No deformity, No edema - Neuro Neuro: Alert and oriented X 3, mallet cutter 2-12 intact, No motor deficit, No sensory deficit, Normal speech Eye Opening: Spontaneous Motor: Obeys Commands Verbal: Oriented GCS Score: 15 - Psych Psych: Normal mood, Normal affect Results - Vitals Vitals: Vital Signs - 24 hr 06/14/21 06/14/21 06/14/21 07:51 07:55 10:28 Temperature 37.5 C 37.6 C Heart Rate 102 H 98 84 Respiratory 18 20 14 Rate Blood Pressure 198/130 H 198/130 H 161/90 H O2 Saturation 99 98 99 06/14/21 12:25 Temperature Heart Rate 84 Respiratory 14 Rate Blood Pressure 194/100 H O2 Saturation 97 Oxygen O2 Source Room air - Labs Labs: Laboratory Tests 06/14/21 06/14/21 06/14/21 08:40 08:40 09:31 WBC 7.9 RBC 4.61 Hgb 12.8 Hct 39.8 MCV 86.3 MCH 27.8 MCHC 32.2 RDW 13.0 Plt Count 475 H MPV 9.5 Neut # (Auto) 4.7 Lymph # (Auto) 2.1 [place] # (Auto) 0.5 Eos # (Auto) 0.4 Baso # (Auto) 0.1 Absolute Nucleated RBC 0.00 Nucleated RBC % 0.0 Sodium 138 Potassium 2.8 L Chloride 104 Carbon Dioxide 19 L Anion Gap 15.0 H BUN 10 Creatinine 0.6 Estimated GFR (MDRD) 103 Glucose 147 H Calcium 9.7 Total Bilirubin 0.7 AST 15 ALT 13 Alkaline Phosphatase 151 H Total Protein 7.9 Albumin 4.5 Globulin 3.4 Albumin/Globulin Ratio 1.3 Lipase 21 L Urine Color YELLOW Urine Clarity CLEAR Urine pH 6.0 Ur Specific [place] 1.020 Urine Protein NEGATIVE Urine Glucose (UA) NEGATIVE Urine Ketones TRACE Urine Occult Blood TRACE-INTA Urine Nitrite NEGATIVE Urine Bilirubin NEGATIVE Urine Urobilinogen 0.2 (NORMAL) Ur Leukocyte Esterase NEGATIVE Ur Microscopic Review NOT INDICATED Urine Culture Comments NOT INDICATED Phenytoin 9.2 PD MEDICAL DECISION MAKING - ED course Complexity details: reviewed results, re-evaluated patient, considered differential, d/w patient ED course: 56-year-old female being treated for chronic pain and with pain in her knee after a surgery has developed epigastric pain she is taking ibuprofen and she is having some issue with vomiting. She describes black stool as well. Her blood counts are stable she responds to a GI cocktail with viscous lidocaine Mylanta and Carafate. She is given hydration and potassium. We will ask her to stop her ibuprofen and start the Carafate. She has potassium supplementation. Departure - Departure Disposition: 01 Home, Self Care Clinical Impression: Hypokalemia Gastritis Qualifiers: Gastritis type: unspecified gastritis Chronicity: acute Gastritis bleeding: without bleeding Qualified Code(s): K29.00 - Acute gastritis without bleeding Condition: Stable Instructions: ED Diet High Potassium, ED PUD Vs Gastritis Follow-Up: EBONY GU DO [Primary Care Provider] - Prescriptions: Prochlorperazine Maleate [Compazine] 10 mg PO Q4HR PRN #20 tab PRN Reason: Nausea / Vomiting Sucralfate [Carafate] 1 gm PO ACHS #60 tablet Comments: Today it appears you have some gastritis likely related to the your use of ibuprofen or Aleve. The recommendation is to discontinue the use of this medication and start the Carafate before meals and at bedtime. Discharge Date/Time: 06/14/21 14:16
[2021-06-14 10:01] LABS: CLARITY,URINE CLEAR (CLEAR)
[2021-06-14] MEDS ORDERED: HYDROmorphone 1 MG/ML CARPUJECT IVP STA (10:54)
[2021-06-14] MEDS ORDERED: PROMETHAZINE INJ 25 MG in SODIUM CHLORIDE 0.9% 50 ML IV STA (10:55)
[2021-06-14 12:28] VITALS: BP 194/100
== END 2021-06-14 14:16 | disposition home or self-care (01) ==
LOC: EDUNIT# → ED 07:41
DX: K29.00 Acute gastritis without bleeding (principal); R11.2 Nausea with vomiting, unspecified; E87.6 Hypokalemia; G89.29 Other chronic pain; M25.569 Pain in unspecified knee; K52.9 Noninfective gastroenteritis and colitis, unspecified; I10 Essential (primary) hypertension; G43.909 Migraine, unspecified, not intractable, without status migrainosus; G62.9 Polyneuropathy, unspecified; G40.909 Epilepsy, unspecified, not intractable, without status epilepticus; E03.9 Hypothyroidism, unspecified; M32.9 Systemic lupus erythematosus, unspecified; K21.9 Gastro-esophageal reflux disease without esophagitis; R32 Unspecified urinary incontinence; R35.1 Nocturia; R35.0 Frequency of micturition; M19.90 Unspecified osteoarthritis, unspecified site; M81.0 Age-related osteoporosis without current pathological fracture; R53.83 Other fatigue; M54.9 Dorsalgia, unspecified; Z66 Do not resuscitate; Z86.73 Personal history of transient ischemic attack (TIA), and cerebral infarction without residual deficits; Z79.1 Long term (current) use of non-steroidal anti-inflammatories (NSAID); Z79.899 Other long term (current) drug therapy
CPT/HCPCS: 36415; 80053; 80185; 81003; 83690; 85025; 96365; 96367; 96375; 99284; 99285; A9270; J1170; J1200; J7040; 81001; 87086

== ENCOUNTER 2021-06-22 10:33 | Emergency (ER) | payer MEDICARE, MEDICAID ==
[2021-06-22] MEDS ORDERED: SODIUM CHLORIDE 0.9% 1,000 ML IV STA (11:05)
[2021-06-22] MEDS ORDERED: ONDANSETRON 4 MG/2 ML VIAL IVP STA (11:05)
[2021-06-22 11:55] LABS: BASOPHILS # (AUTO) 0.1 10^3/uL (0.0-0.1); BASOPHILS % (AUTO) 0.5 %; EOSINOPHILS % (AUTO) 0.2 %; HCT - HEMATOCRIT 41.9 % (37.0-47.0); HGB - HEMOGLOBIN 13.5 g/dL (12.0-16.0); LYMPHOCYTES # (AUTO) 1.1 10^3/uL (1.5-3.5); LYMPHOCYTES % (AUTO) 8.2 %; MEAN CORPUSCULAR HEMOGLOBIN 27.8 pg (27.0-31.0); MEAN CORPUSCULAR HGB CONC 32.2 g/dL (32.0-36.0); MEAN CORPUSCULAR VOLUME 86.2 fL (81.0-99.0); MONOCYTES # (AUTO) 0.6 10^3/uL (0.0-1.0); MONOCYTES % (AUTO) 4.6 %; NEUTROPHILS # (AUTO) 11.1 10^3/uL (1.5-6.6); NEUTROPHILS % (AUTO) 86.2 %; PLT - PLATELET COUNT 596 10^3/uL (130-450); RED BLOOD COUNT 4.86 10^6/uL (4.20-5.40); RED CELL DISTRIBUTION WIDTH 13.1 % (12.0-15.0); WHITE BLOOD COUNT 12.9 x10^3/uL (4.8-10.8)
[2021-06-22] MEDS ORDERED: HYDROmorphone 1 MG/ML CARPUJECT IVP STA ×3 (11:58→15:57)
[2021-06-22] MEDS ORDERED: levETIRAcetam INJ 500 MG in SODIUM CHLORIDE 0.9% 100ML 100 ML IV STA (11:58)
--- NOTE | 2021-06-22 12:01 | ED Physician Documentation ---
History of Present Illness - Stated complaint Stated Complaint: VOMITING - Chief complaint Chief Complaint: Abd Pain - Additonal information Additional information: 56-year-old female presents emergency department for evaluation of uncontrolled nausea and vomiting for 3 days. She reports that even small sips of liquids caused her to vomit uncontrollably. She states that over the last 2 to 3 weeks she has been having worsening symptoms of epigastric pain and intermittent nausea and vomiting. Had been seen by my colleague recently was diagnosed with what they thought was a gastritis and colitis. She was started on some antibiotics for the colitis as well as Keflex for urinary tract infection. She reports that despite taking the Keflex she still has urinary urgency and frequency but no further dysuria. She had a fever of 101 yesterday afternoon. Non-bloody output. Some watery loose stools. no cough, fevers, chest pain or SOA Patient is concerned because due to the uncontrolled nausea and vomiting she has been unable to take any of her antiepileptic or hypertensive medications. She did recently undergo hip surgery at [facility] a few weeks ago and was also unable to take any of your narcotics secondary to uncontrolled vomiting. Review of Systems Constitutional: reports: Fever, Fatigue Throat: reports: Reviewed and negative Cardiac: reports: Reviewed and negative Respiratory: reports: Reviewed and negative GI: reports: Abdominal Pain, Nausea, Vomiting, Diarrhea : reports: Frequency. 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: Ovarian cancer : Incontinence, Chronic bladder infection, Renal insuffiency, Nocturia, Frequency, Kidney stones, Other HEENT: Chronic sinusitis Psych: Depression Musculoskeletal: Osteoarthritis, Osteoporosis, Fatigue, Chronic back pain, Other Derm: Psoriasis - Past Surgical History Past Surgical History: Yes General: Appendectomy Ortho: Hip replacement, Spine 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: 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, Oophrectomy - Present Medications Home Medications: Ambulatory Orders Medication Instructions Recorded Confirmed Omeprazole [PriLOSEC] 20 mg PO BID 02/09/18 06/05/21 Cetirizine [ZyrTEC] 10 mg PO DAILY 09/06/18 06/05/21 Melatonin 10 mg PO QPM PRN 09/06/18 06/05/21 diphenhydrAMINE [Benadryl] 50 mg PO QID PRN 09/14/18 06/05/21 Spironolactone 50 mg PO BID 04/09/19 06/05/21 Butalb/Acetaminophen/Caffeine 1 cap PO Q6HR PRN 02/20/20 06/05/21 [Yguiin-[place]e-Cihi 50-300-40] Ondansetron [Ondansetron Odt] 8 mg PO TID PRN 05/16/20 06/05/21 levETIRAcetam [Roweepra] 1,000 mg PO BID 06/13/20 06/05/21 Atorvastatin [Lipitor] 20 mg PO QPM 12/25/20 06/05/21 Cholecalciferol (Vitamin D3) 1,250 mcg PO .QWEEK 12/25/20 06/05/21 [Vitamin D3] Clobetasol 0.05% Oint [Temovate 1 appful TOP TID PRN 12/25/20 06/05/21 0.05% Oint] Desonide 1 appful TOP BID 12/25/20 06/05/21 Magnesium Citrate 100 mg PO DAILY 12/25/20 06/05/21 Pregabalin [Lyrica] 75 mg PO TID 12/25/20 06/05/21 carvediloL [Carvedilol] 25 mg PO Q12H 03/11/21 06/05/21 Phenytoin [Dilantin] 400 mg ORAL QPM 05/16/21 06/05/21 amLODIPine [Norvasc] 10 mg DAILY 05/16/21 06/05/21 methocarbamoL [Robaxin] 1,000 mg PO QID 05/16/21 06/05/21 Metoclopramide HCl [Metoclopramide 10 mg PO Q6H PRN #20 tab 06/05/21 HCl Odt] Potassium Citrate [Potassium 30 meq PO DAILY 06/05/21 06/05/21 Citrate ER] Prochlorperazine Maleate 10 mg PO QID PRN 06/05/21 06/05/21 [Compazine] Saccharomyces Boulardii [Florastor] 500 mg PO BIDWM 10 Days #20 cap 06/05/21 cephALEXin [Keflex] 500 mg PO TID #20 cap 06/05/21 metroNIDAZOLE [Flagyl] 250 mg PO Q8H #20 tablet 06/05/21 oxyCODONE [Roxicodone] 10 mg PO Q6H PRN 06/05/21 06/05/21 Ondansetron Odt [Zofran Odt] 4 mg TL Q6H PRN #10 tablet 06/06/21 Prochlorperazine [Compazine] 5 mg PO Q6H PRN #15 tablet 06/06/21 Prochlorperazine Maleate 10 mg PO Q4HR PRN #20 tab 06/14/21 [Compazine] Sucralfate [Carafate] 1 gm PO ACHS #60 tablet 06/14/21 Prochlorperazine Supp [Compazine 25 mg NJ BID PRN #20 supp 06/22/21 Supp] Prochlorperazine [Compazine] 5 mg PO Q6H PRN #20 tablet 06/22/21 Sucralfate [Carafate] 1 tablet PO ACHS #60 tablet 06/22/21 - Allergies Allergies/Adverse Reactions: Allergies Allergy/AdvReac Type Severity Reaction Status Date / Time Penicillins Allergy Severe Respiratory Verified 06/14/21 07:55 bacitracin Allergy Mild Hives Verified 06/14/21 07:55 [From Neosporin ([id number])] bacitracin zinc * Allergy Mild Itching Verified 06/14/21 07:55 [From Neosporin ([id number])] neomycin sulfate * Allergy Mild Itching Verified 06/14/21 07:55 [From Neosporin ([id number])] lamotrigine Allergy Itching Verified 06/14/21 07:55 sumatriptan [From Imitrex] Allergy Unknown Verified 06/14/21 07:55 venom-honey bee Allergy Unknown Verified 06/14/21 07:55 [bee venom (honey bee)] ciprofloxacin AdvReac Emesis Verified 06/14/21 07:55 doxycycline AdvReac Nausea Verified 06/14/21 07:55 - Social History Does the pt smoke?: No Smoking Status: Never smoker Does the pt drink ETOH?: No Does the pt have substance abuse?: No - Immunizations Immunizations are current?: Yes - POLST Patient has POLST: Yes POLST Status: DNR PD ED PE EXPANDED - General General: Alert, In Pain - Cardiac Cardiac: Regular Rate, Radial strong equal, Pedal strong equal, Cap refill < 2 sec. No: Murmur Present - Respiratory Respiratory: Clear to ausultation glenys. No: Distress, Labored - Abdomen Abdomen: Normal Bowel sounds, Tender to palpation, Generalized/diffuse. No: Rebound, Guarding - Derm Derm: Normal color, Warm and dry. No: Rash - Extremities Extremities: Normal. No: Deformity, Tenderness - Neuro Neuro: Alert and Oriented X 3, CNII-XII intact - GCS Eye Opening: Spontaneous Motor: Obeys Commands Verbal: Oriented Total: 15 Results - Vitals Vitals: Vital Signs - 24 hr 06/22/21 06/22/21 06/22/21 10:52 12:56 14:00 Temperature 36.3 C L Heart Rate 106 H 95 95 Respiratory 20 17 18 Rate Blood Pressure 177/107 H 180/100 H 200/98 H O2 Saturation 97 96 99 06/22/21 16:00 Temperature Heart Rate 99 Respiratory 17 Rate Blood Pressure 208/90 H O2 Saturation 99 Oxygen O2 Source Room air - Labs Labs: Laboratory Tests 06/22/21 06/22/21 06/22/21 11:48 11:48 15:35 WBC 12.9 H RBC 4.86 Hgb 13.5 Hct 41.9 MCV 86.2 MCH 27.8 MCHC 32.2 RDW 13.1 Plt Count 596 H MPV 9.0 Neut # (Auto) 11.1 H Lymph # (Auto) 1.1 L [place] # (Auto) 0.6 Eos # (Auto) 0.0 Baso # (Auto) 0.1 Absolute Nucleated RBC 0.00 Nucleated RBC % 0.0 Sodium 137 Potassium 3.4 L Chloride 99 L Carbon Dioxide 19 L Anion Gap 19.0 H BUN 13 Creatinine 0.7 Estimated GFR (MDRD) 87 L Glucose 143 H Calcium 10.4 H Total Bilirubin 1.0 AST 16 ALT 14 Alkaline Phosphatase 167 H Total Protein 8.7 H Albumin 4.9 Globulin 3.8 Albumin/Globulin Ratio 1.3 Lipase 22 Urine Color DARK YELLOW Urine Clarity HAZY Urine pH 6.0 Ur Specific [place] >=1.030 H Urine Protein 100 H Urine Glucose (UA) NEGATIVE Urine Ketones >=80 H Urine Occult Blood MODERATE H Urine Nitrite NEGATIVE Urine Bilirubin NEGATIVE Urine Urobilinogen 0.2 (NORMAL) Ur Leukocyte Esterase NEGATIVE Urine RBC 6-10 H Urine WBC 4-5 Ur Squamous Epith Cells MOD Squamous H Urine Bacteria Few Urine Casts 11-25 Hyaline Casts Urine Mucus Moderate Strands Ur Microscopic Review INDICATED Urine Culture Comments NOT INDICATED PD MEDICAL DECISION MAKING - ED course Complexity details: reviewed results, re-evaluated patient, considered differential, d/w patient ED course: 56-year-old female presents emergency department for evaluation of uncontrolled nausea and vomiting. This has become a more recurrent problem over the last few weeks. Seen recently for similar had a CT scan which was suggestive of possible infectious colitis and she has completed a course of Flagyl for this. She was also recently diagnosed with urinary tract infection for which she completed Keflex. Over the last 3 days she has been unable to keep any food or medicine down. She has some generalized abdominal tenderness but is nonfocal. She is denying any black or bloody stools. On presentation she appears remarkably well although she is noted to be hypertensive though this is at baseline with previous ED visits. Here in the emergency department screening labs were obtained and they do show a mildly elevated white blood cell count though given lack of fevers or findings of infection in the urine likely secondary to recent events. CCT imaging deferred given a relatively benign and non focal abd exam. Patient was given IV fluids here in the emergency department as well as Zofran a nd Reglan with good control the nausea and vomiting. Now tolerating sips of clear liquids. Antiemetics sent to [facility] in [place]. Patient does have a referral pending to GI for further evaluation of the recurrent vomiting as well as concerns of infectious colitis. Departure - Departure Disposition: 01 Home, Self Care Clinical Impression: Nausea and vomiting Qualifiers: Vomiting type: unspecified Vomiting Intractability: non-intractable Qualified Code(s): R11.2 - Nausea with vomiting, unspecified Condition: Stable Record reviewed to determine appropriate education?: Yes Instructions: ED Diet Vomiting Diarrhea Prescriptions: Sucralfate [Carafate] 1 tablet PO ACHS #60 tablet Prochlorperazine [Compazine] 5 mg PO Q6H PRN #20 tablet PRN Reason: Nausea / Vomiting Prochlorperazine Supp [Compazine Supp] 25 mg NJ BID PRN #20 supp PRN Reason: Nausea / Vomiting Comments: Lulú you are seen here in the emergency department today for uncontrolled nausea and vomiting. Your screening labs did show a mildly elevated white blood cell count however there were no other worrisome abnormalities. No findings of infection in the urine. You were given 2 antiemetics as well as IV fluid with improved control of your symptoms. I have electronically prescribed the Compazine to the [facility] in [place]. I encourage you to take small frequent sips of clear liquids over the next 24 to 48 hours and then slowly advance your diet. At any point you have worsening symptoms despite the antiemetic, again have uncontrolled vomiting, suddenly severe abdominal pain or any bloody diarrhea then please return immediately to the ER Please discuss this ED visit with your primary care provider as soon as possible and Continue with GI follow-up Discharge Date/Time: 06/22/21 16:20
[2021-06-22 12:09] LABS: ALBUMIN 4.9 g/dL (3.2-5.5); ALBUMIN/GLOBULIN RATIO 1.3 (1.0-2.2); CALCIUM 10.4 mg/dL (8.5-10.3); CREATININE 0.7 mg/dL (0.4-1.0); POTASSIUM 3.4 mmol/L (3.5-5.0); TOTAL PROTEIN 8.7 g/dL (6.7-8.2)
[2021-06-22] MEDS ORDERED: METOCLOPRAMIDE 10 MG/2 ML VIAL IVP STA (13:16)
[2021-06-22] MEDS ORDERED: PANTOPRAZOLE 40 MG VIAL IVP STA (13:17)
[2021-06-22 15:43] LABS: GLUCOSE, URINE (UA) NEGATIVE (NEGATIVE); KETONES,URINE (UA) >=80 mg/dL (NEGATIVE); LEUKOCYTE ESTERASE, URINE NEGATIVE (NEGATIVE); NITRITE,URINE NEGATIVE (NEGATIVE); OCCULT BLOOD,URINE MODERATE (NEGATIVE); PROTEIN,URINE 100 mg/dL (NEGATIVE); UROBILINOGEN,URINE 0.2 (NORMAL) E.U./dL (NORMAL)
[2021-06-22 15:45] LABS: CLARITY,URINE HAZY (CLEAR)
[2021-06-22 15:48] LABS: BILIRUBIN,URINE NEGATIVE (NEGATIVE); ICTOTEST,URINE NEGATIVE
[2021-06-22 15:55] LABS: BACTERIA,URINE Few /HPF (None Seen); MUCUS,URINE Moderate Strands; SQUAMOUS EPITHELIAL CELL,UR MOD Squamous (<= Few)
[2021-06-22] MEDS ORDERED: HYDROmorphone 1 MG/ML CARPUJECT IM STA (16:01)
[2021-06-22 16:09] VITALS: BP 208/90
== END 2021-06-22 16:20 | disposition home or self-care (01) ==
LOC: ED 10:33
DX: R11.2 Nausea with vomiting, unspecified (principal); R10.817 Generalized abdominal tenderness; D72.829 Elevated white blood cell count, unspecified; R35.0 Frequency of micturition; I10 Essential (primary) hypertension; M32.9 Systemic lupus erythematosus, unspecified
CPT/HCPCS: 36415; 80053; 81001; 83690; 85025; 96361; 96365; 96375; 96376; 99284; 99285; J1170; J2765; 81003; 87086

== ENCOUNTER 2021-07-11 08:56 | Emergency (ER) | payer MEDICARE, MEDICAID ==
[2021-07-11 09:45] LABS: BASOPHILS # (AUTO) 0.1 10^3/uL (0.0-0.1); BASOPHILS % (AUTO) 0.6 %; EOSINOPHILS % (AUTO) 0.2 %; HGB - HEMOGLOBIN 13.2 g/dL (12.0-16.0); LYMPHOCYTES # (AUTO) 1.5 10^3/uL (1.5-3.5); LYMPHOCYTES % (AUTO) 18.2 %; MEAN CORPUSCULAR HEMOGLOBIN 26.3 pg (27.0-31.0); MEAN CORPUSCULAR HGB CONC 31.4 g/dL (32.0-36.0); MEAN CORPUSCULAR VOLUME 83.8 fL (81.0-99.0); MEAN PLATELET VOLUME 9.3 fL (7.9-10.8); MONOCYTES # (AUTO) 0.5 10^3/uL (0.0-1.0); MONOCYTES % (AUTO) 5.7 %; NEUTROPHILS # (AUTO) 6.3 10^3/uL (1.5-6.6); NEUTROPHILS % (AUTO) 74.8 %; PLT - PLATELET COUNT 543 10^3/uL (130-450); RED BLOOD COUNT 5.01 10^6/uL (4.20-5.40); RED CELL DISTRIBUTION WIDTH 13.9 % (12.0-15.0); WHITE BLOOD COUNT 8.5 x10^3/uL (4.8-10.8)
--- NOTE | 2021-07-11 09:46 | ED Physician Documentation ---
PD HPI NVD - Stated complaint Stated Complaint: VOMITTING - Chief complaint Chief Complaint: Abd Pain - History obtained from History obtained from: Patient - History of Present Illness Timing - onset: How many days ago (3) Timing - duration: Days (3) Timing - details: Abrupt onset, Still present Associated symptoms: Loss of appetite, Other (nausea and vomting for 3 days. Has had episodes similar the past couple of months. Denies alcohol use, cannibis use, unusual foods. Has increased omeprazole to twice daily. Did have imp rovement with Carafate when Rx for a week. Is out of it. No hematemesis.). No: Fever, Abdominal pain Improved by: No: Vomiting Worsened by: Eating Similar symptoms before: No diagnosis (presumed gastritis/ulcer with recent symptoms past couple months since hip surgery. Is not on NSAIDs now, was after surgery. No opiates past first week or so. prior CCY.) Recently seen: Emergency Dept (seen few times for similar with improvement in ED. Had Rx of carafate post one visit that did help. Has antiemetics at home. CT abd a month ago normal without signs acute process.) Review of Systems Constitutional: denies: Fever, Chills Nose: denies: Rhinorrhea / runny nose, Congestion Throat: denies: Sore throat Respiratory: denies: Cough GI: reports: Abdominal Pain (intermittently upper abd/epigastric.), Nausea, Vomiting. denies: Abdominal Swelling, Diarrhea, Hematemesis Skin: denies: Rash, Lesions Musculoskeletal: denies: Neck pain, Back pain Neurologic: reports: Generalized weakness. 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 cancer : Incontinence, Chronic bladder infection, Renal insuffiency, Nocturia, Frequency, Kidney stones, Other HEENT: Chronic sinusitis Psych: Depression Musculoskeletal: Osteoarthritis, Osteoporosis, Fatigue, Chronic back pain, Other Derm: Psoriasis - Past Surgical History Past Surgical History: Yes General: Cholecystectomy, Appendectomy Ortho: Hip replacement, Spine surgery /MOLD CONSTRUCTION SUPERVISOR: 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, Oophrectomy - Present Medications Home Medications: Ambulatory Orders Medication Instructions Recorded Confirmed Omeprazole [PriLOSEC] 20 mg PO BID 02/09/18 06/05/21 Cetirizine [ZyrTEC] 10 mg PO DAILY 09/06/18 06/05/21 Melatonin 10 mg PO QPM PRN 09/06/18 06/05/21 diphenhydrAMINE [Benadryl] 50 mg PO QID PRN 09/14/18 06/05/21 Spironolactone 50 mg PO BID 04/09/19 06/05/21 Butalb/Acetaminophen/Caffeine 1 cap PO Q6HR PRN 02/20/20 06/05/21 [[id number]-[id number] 50-300-40] Ondansetron [Ondansetron Odt] 8 mg PO TID PRN 05/16/20 06/05/21 levETIRAcetam [Roweepra] 1,000 mg PO BID 06/13/20 06/05/21 Atorvastatin [Lipitor] 20 mg PO QPM 12/25/20 06/05/21 Cholecalciferol (Vitamin D3) 1,250 mcg PO .QWEEK 12/25/20 06/05/21 [Vitamin D3] Clobetasol 0.05% Oint [Temovate 1 appful TOP TID PRN 12/25/20 06/05/21 0.05% Oint] Desonide 1 appful TOP BID 12/25/20 06/05/21 Magnesium Citrate 100 mg PO DAILY 12/25/20 06/05/21 Pregabalin [Lyrica] 75 mg PO TID 12/25/20 06/05/21 carvediloL [Carvedilol] 25 mg PO Q12H 03/11/21 06/05/21 Phenytoin [Dilantin] 400 mg ORAL QPM 05/16/21 06/05/21 amLODIPine [Norvasc] 10 mg DAILY 05/16/21 06/05/21 methocarbamoL [Robaxin] 1,000 mg PO QID 05/16/21 06/05/21 Metoclopramide HCl [Metoclopramide 10 mg PO Q6H PRN #20 tab 06/05/21 HCl Odt] Potassium Citrate [Potassium 30 meq PO DAILY 06/05/21 06/05/21 Citrate ER] Prochlorperazine Maleate 10 mg PO QID PRN 06/05/21 06/05/21 [Compazine] Saccharomyces Boulardii [Florastor] 500 mg PO BIDWM 10 Days #20 cap 06/05/21 cephALEXin [Keflex] 500 mg PO TID #20 cap 06/05/21 metroNIDAZOLE [Flagyl] 250 mg PO Q8H #20 tablet 06/05/21 oxyCODONE [Roxicodone] 10 mg PO Q6H PRN 06/05/21 06/05/21 Ondansetron Odt [Zofran Odt] 4 mg TL Q6H PRN #10 tablet 06/06/21 Prochlorperazine [Compazine] 5 mg PO Q6H PRN #15 tablet 06/06/21 Prochlorperazine Maleate 10 mg PO Q4HR PRN #20 tab 06/14/21 [Compazine] Sucralfate [Carafate] 1 gm PO ACHS #60 tablet 06/14/21 Prochlorperazine Supp [Compazine 25 mg KS BID PRN #20 supp 06/22/21 Supp] Prochlorperazine [Compazine] 5 mg PO Q6H PRN #20 tablet 06/22/21 Sucralfate [Carafate] 1 tablet PO ACHS #60 tablet 06/22/21 Ondansetron Odt [Zofran] 4 mg TL Q6H PRN #20 tablet 07/11/21 Pantoprazole Sodium 40 mg PO DAILY 30 Days #30 tab 07/11/21 Prochlorperazine [Compazine] 10 mg PO Q6H PRN #30 tablet 07/11/21 Sucralfate [Carafate] 1 gm PO ACHS #60 tablet 07/11/21 - Allergies Allergies/Adverse Reactions: Allergies Allergy/AdvReac Type Severity Reaction Status Date / Time Penicillins Allergy Severe Respiratory Verified 07/11/21 09:18 bacitracin Allergy Mild Hives Verified 07/11/21 09:18 [From Neosporin ([id number])] bacitracin zinc * Allergy Mild Itching Verified 07/11/21 09:18 [From Neosporin ([id number])] neomycin sulfate * Allergy Mild Itching Verified 07/11/21 09:18 [From Neosporin ([id number])] lamotrigine Allergy Itching Verified 07/11/21 09:18 sumatriptan [From Imitrex] Allergy Unknown Verified 07/11/21 09:18 venom-honey bee Allergy Unknown Verified 07/11/21 09:18 [bee venom (honey bee)] ciprofloxacin AdvReac Emesis Verified 07/11/21 09:18 doxycycline AdvReac Nausea Verified 07/11/21 09:18 - Social History Does the pt smoke?: No Smoking Status: Never smoker Does the pt drink ETOH?: No Does the pt have substance abuse?: No - Immunizations Immunizations are current?: Yes - POLST Patient has POLST: Yes POLST Status: DNR PD ED PE NORMAL - Vitals Vital signs reviewed: Yes - General General: Alert and oriented X 3, No acute distress, Well developed/nourished - HEENT HEENT: Pharynx benign. No: Moist mucous membranes - Neck Neck: Supple, no meningeal sign, No adenopathy - Cardiac Cardiac: RRR (mild tachycardia), No murmur - Respiratory Respiratory: Clear bilaterally - Abdomen Abdomen: Normal bowel sounds, Soft, Non distended, No organomegaly, Other (tender epigastric. ) - Derm Derm: Normal color, Warm and dry - Extremities Extremities: Normal ROM s pain, No edema, No calf tenderness / cord - Neuro Neuro: Alert and oriented X 3, No motor deficit, Normal speech Results - Vitals Vitals: Vital Signs - 24 hr 07/11/21 07/11/21 07/11/21 09:08 11:18 13:00 Temperature 36.3 C L 36.8 C 36.8 C Heart Rate 102 H 79 84 Respiratory 18 16 14 Rate Blood Pressure 166/110 H 158/95 H 144/75 H O2 Saturation 97 97 96 Oxygen O2 Source Room air - Labs Labs: Laboratory Tests 07/11/21 07/11/21 07/11/21 09:39 09:39 09:39 WBC 8.5 RBC 5.01 Hgb 13.2 Hct 42.0 MCV 83.8 MCH 26.3 L MCHC 31.4 L RDW 13.9 Plt Count 543 H MPV 9.3 Neut # (Auto) 6.3 Lymph # (Auto) 1.5 [place] # (Auto) 0.5 Eos # (Auto) 0.0 Baso # (Auto) 0.1 Absolute Nucleated RBC 0.00 Nucleated RBC % 0.0 Sodium 135 Potassium 3.0 L Chloride 101 Carbon Dioxide 20 L Anion Gap 14.0 H BUN 19 Creatinine 0.8 Estimated GFR (MDRD) 74 L Glucose 179 H Calcium 9.6 Magnesium 2.0 Total Bilirubin 0.7 AST 21 ALT 20 Alkaline Phosphatase 170 H Total Protein 8.1 Albumin 4.9 Globulin 3.2 Albumin/Globulin Ratio 1.5 Lipase 21 L Phenytoin 3.4 PD MEDICAL DECISION MAKING - ED course Complexity details: reviewed results, re-evaluated patient (feeling better with IV fluids and meds. Presume gastritis/ulcer. She states her PMD is getting referral to GI. Can treat as ulcer for now with changing/adding meds. ), considered differential, d/w patient Departure - Departure Disposition: Home, Self Care Clinical Impression: Hypokalemia, Gastritis Nausea and vomiting Qualifiers: Vomiting type: unspecified Vomiting Intractability: intractable Qualified Code(s): R11.2 - Nausea with vomiting, unspecified Condition: Stable Record reviewed to determine appropriate education?: Yes Instructions: ED Nausea Vomiting Follow-Up: EBONY GU DO [Primary Care Provider] - Prescriptions: Sucralfate [Carafate] 1 gm PO ACHS #60 tablet Prochlorperazine [Compazine] 10 mg PO Q6H PRN #30 tablet PRN Reason: Nausea / Vomiting Pantoprazole Sodium 40 mg PO DAILY 30 Days #30 tab Ondansetron Odt [Zofran] 4 mg TL Q6H PRN #20 tablet PRN Reason: Nausea / Vomiting Comments: Frequent fluids and bland food to help with your stomach. Since you have had persistent symptoms despite your home medications, I would suggest trying changing from omeprazole to pantoprazole. We can add the sucralfate 4 times a day for the next couple of weeks as well. Ondansatron or Compazine if needed for nausea. Continue other usual medicines. Follow-up with your primary care and continue the referral for gastroenterology. It does sound likely have some irritation of the stomach (gastritis) at's causing these recurrent symptoms. Continue usual medications at home including your seizure medicines. You could double dose on the phenytoin today to increase the level assuming your stomach tolerates. I transmitted your prescriptions to [facility] pharmacy. Discharge Date/Time: 07/11/21 13:46
[2021-07-11 09:59] LABS: ALBUMIN 4.9 g/dL (3.2-5.5); ALBUMIN/GLOBULIN RATIO 1.5 (1.0-2.2); BILIRUBIN,TOTAL 0.7 mg/dL (0.2-1.0); CALCIUM 9.6 mg/dL (8.5-10.3); CREATININE 0.8 mg/dL (0.4-1.0); TOTAL PROTEIN 8.1 g/dL (6.7-8.2)
[2021-07-11] MEDS ORDERED: levETIRAcetam INJ 500 MG in SODIUM CHLORIDE 0.9% 100ML 100 ML IV STA (10:01)
[2021-07-11] MEDS ORDERED: SODIUM CHLORIDE 0.9% 1,000 ML IV STA (10:01)
[2021-07-11] MEDS ORDERED: DROPERIDOL 5 MG/2 ML VIAL IVP STA (10:01)
[2021-07-11] MEDS ORDERED: FAMOTIDINE 20 MG/2 ML VIAL IVP STA (10:01)
[2021-07-11] MEDS ORDERED: KETOROLAC 15 MG/ML VIAL IVP STA (10:01)
[2021-07-11 10:16] LABS: PHENYTOIN (DILANTIN) 3.4 ug/mL
[2021-07-11 13:45] VITALS: BP 144/75
== END 2021-07-11 13:46 | disposition home or self-care (01) ==
LOC: ED 08:56
DX: K29.70 Gastritis, unspecified, without bleeding (principal); E87.6 Hypokalemia; K21.9 Gastro-esophageal reflux disease without esophagitis; Z87.11 Personal history of peptic ulcer disease; Z87.19 Personal history of other diseases of the digestive system; I10 Essential (primary) hypertension; M32.9 Systemic lupus erythematosus, unspecified; Z85.43 Personal history of malignant neoplasm of ovary
CPT/HCPCS: 36415; 80053; 80177; 80185; 83690; 83735; 85025; 96365; 96375; 99283

== ENCOUNTER 2021-07-27 15:02 | Outpatient (CLI) | payer MEDICARE, MEDICAID | END 2021-07-27 15:03 | disposition critical access hospital (66) | LOC: EMS 15:02 | DX: R46.4 Slowness and poor responsiveness (principal); R11.10 Vomiting, unspecified | CPT/HCPCS: A0425; A0427 ==

== ENCOUNTER 2021-07-27 15:14 | Inpatient (IN) | payer MEDICARE, MEDICAID ==
[2021-07-27] MEDS ORDERED: LORazepam 2 MG/ML VIAL IVP STA (15:31)
[2021-07-27 16:09] LABS: BASOPHILS % (AUTO) 0.6 %; EOSINOPHILS % (AUTO) 0.5 %; HCT - HEMATOCRIT 48.5 % (37.0-47.0); HGB - HEMOGLOBIN 15.7 g/dL (12.0-16.0); MEAN CORPUSCULAR HEMOGLOBIN 26.1 pg (27.0-31.0); MEAN CORPUSCULAR HGB CONC 32.4 g/dL (32.0-36.0); MEAN CORPUSCULAR VOLUME 80.7 fL (81.0-99.0); MEAN PLATELET VOLUME 9.5 fL (7.9-10.8); MONOCYTES % (AUTO) 5.8 %; NEUTROPHILS % (AUTO) 84.8 %; PLT - PLATELET COUNT 470 10^3/uL (130-450); RED BLOOD COUNT 6.01 10^6/uL (4.20-5.40); RED CELL DISTRIBUTION WIDTH 14.2 % (12.0-15.0); WHITE BLOOD COUNT 21.3 x10^3/uL (4.8-10.8)
[2021-07-27 16:12] LABS: SLIDE REVIEW? Indicated
[2021-07-27 16:13] LABS: ABNORMAL LYMPHS % (MANUAL) 0 %
[2021-07-27 16:28] LABS: BAND NEUTROPHILS % (MANUAL) 7 %; DIFFERENTIAL COMMENT MANUAL DIFFERENTIAL; LYMPHOCYTES # (MANUAL) 0.9 10^3/uL (1.5-3.5); LYMPHOCYTES % (MANUAL) 4 %; MONOCYTES # (MANUAL) 1.3 10^3/uL (0.0-1.0); NEUTROPHILS # (MANUAL) 19.2 10^3/uL (1.5-6.6); PLATELET ESTIMATE, MANUAL INCREASED (>450,000) (NORMAL); PLATELET MORPHOLOGY NORMAL APPEARANCE (NORMAL); RBC MORPHOLOGY (MULTIPLE) NORMAL APPEARANCE (NORMAL)
--- NOTE | 2021-07-27 16:32 | CT Report ---
PROCEDURE: HEAD WO INDICATIONS: coma TECHNIQUE: Noncontrast 4.5 mm thick angled axial sections acquired from the foramen magnum to the vertex. For r adiation dose reduction, the following was used: automated exposure control, adjustment of mA and/or kV according to patient size. COMPARISON: 05/16/2021. FINDINGS: Image quality: There is motion artifact limiting evaluation.. CSF spaces: Basal cisterns are patent. No extra-axial fluid collections. Ventricles are normal in size and shape. Brain: No intracranial hemorrhage, mass, or mass effect. Pablo-white matter interface appears grossly preserved but evaluation is limited by motion artifact. Skull and face: Calvarium and visualized facial bones are intact, without suspicious lesions. Sinuses: Visualized sinuses and mastoids are clear. IMPRESSION: 1. No definite acute intracranial abnormality. Reviewed by: Phong Banda MD on 07/27/2021 3:[address] [facility] Approved by: Phong Banda MD on 07/27/2021 3:[address] [facility] Station ID: [id number]
[2021-07-27 16:34] LABS: ALBUMIN 4.9 g/dL (3.2-5.5); ALBUMIN/GLOBULIN RATIO 1.2 (1.0-2.2); BILIRUBIN,TOTAL 1.7 mg/dL (0.2-1.0); CALCIUM 10.4 mg/dL (8.5-10.3); CREATININE 2.9 mg/dL (0.4-1.0); POTASSIUM 3.1 mmol/L (3.5-5.0)
[2021-07-27] MEDS ORDERED: SODIUM CHLORIDE 0.9% 1,000 ML IV STA (16:49)
--- NOTE | 2021-07-27 17:08 | ED Physician Documentation ---
PD HPI FOCAL NEURO - Stated complaint Stated Complaint: CVA - Chief complaint Chief Complaint: Neuro - History obtained from History obtained from: Family, EMS - History of Present Illness Timing - onset: Unknown Timing - duration: Days (1-2) Timing - details: Still present Time of symptom onset unknown: Time of onset unknown Severity of deficit: Severe Weakness: Arm, Hand, Leg, Foot, Right Associated symptoms: Nausea / vomiting Contributing factors: positive: Other (has known siezure disorder) Baseline status: positive: A&OX3, ambulatory, indep Similar symptoms before: Diagnosis (hemorrhagic CVA) Recently seen: Emergency Dept - Additional information Additional information: 56 y/o female with a complicated history Including a seizure disorder and chronic osteo of the left hip as well as hypertension.She has most recently been into the emergency department with repeated episodes of vomiting. Today her daughter went to call her she did not answer the telephone and the daughter thought she was probably asleep. She went to find her later in the house this afternoon unresponsive breathing rapidly with vomit all over. The patient has been unresponsive she is brought to the hospital by EMS with a GCS of 3. She has a deviated gaze and right-sided flaccid as well as left upper extremity flaccid. The daughter indicates that she has seen her mother like this 1 other time when she had an intracranial hemorrhage and at that time the patient was intubated and transferred to [facility] where she was comatose for 3 days and then woke up. The patient's daughter indicates that the patient has desires to not be resuscitated. After that episode 5 years ago the patient requested she not ever have intubation or resuscitation done. 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 : Incontinence, Chronic bladder infection, Renal insuffiency, Nocturia, Frequency, Kidney stones, Other HEENT: Chronic sinusitis Psych: Depression, Bipolar disorder Musculoskeletal: Osteoarthritis, Osteoporosis, Fatigue, Chronic back pain, Other Derm: Psoriasis - Past Surgical History Past Surgical History: Yes General: Cholecystectomy, Appendectomy Ortho: Hip replacement, Spine surgery /LEVER TENDER: 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, Oophrectomy - Present Medications Home Medications: Ambulatory Orders Medication Instructions Recorded Confirmed Omeprazole [PriLOSEC] 20 mg PO BID 02/09/18 07/27/21 Cetirizine [ZyrTEC] 10 mg PO DAILY 09/06/18 07/27/21 Melatonin 10 mg PO QPM PRN 09/06/18 07/27/21 diphenhydrAMINE [Benadryl] 50 mg PO QID PRN 09/14/18 07/27/21 Spironolactone 50 mg PO BID 04/09/19 07/27/21 Butalb/Acetaminophen/Caffeine 1 cap PO Q6HR PRN 02/20/20 07/27/21 [[id number]-[id number]-[id number] 50-300-40] Ondansetron [Ondansetron Odt] 8 mg PO QID 05/16/20 07/27/21 levETIRAcetam [Roweepra] 1,500 mg PO BID 06/13/20 07/27/21 Atorvastatin [Lipitor] 20 mg PO QPM 12/25/20 07/27/21 Cholecalciferol (Vitamin D3) 1,250 mcg PO .QWEEK 12/25/20 07/27/21 [Vitamin D3] Clobetasol 0.05% Oint [Temovate 1 appful TOP TID PRN 12/25/20 07/27/21 0.05% Oint] Desonide 1 appful TOP BID 12/25/20 07/27/21 Magnesium Citrate 100 mg PO DAILY 12/25/20 07/27/21 carvediloL [Carvedilol] 25 mg PO Q12H 03/11/21 07/27/21 amLODIPine [Norvasc] 10 mg ORAL DAILY 05/16/21 07/27/21 methocarbamoL [Robaxin] 1,000 mg PO QID 05/16/21 07/27/21 Potassium Citrate [Potassium 30 meq PO DAILY 06/05/21 07/27/21 Citrate ER] Prochlorperazine Maleate 10 mg PO QID PRN 06/05/21 07/27/21 [Compazine] Sucralfate [Carafate] 1 gm PO ACHS #60 tablet 06/14/21 07/27/21 Oxycodone HCl/Acetaminophen 0.5 - 1 tab PO Q4HR PRN 07/27/21 07/27/21 [Percocet 10-325 mg Tablet] Potassium Citrate [Potassium 30 meq PO HS 07/27/21 07/27/21 Citrate ER] Pregabalin [Lyrica] 75 mg PO TID 07/27/21 07/27/21 - Allergies Allergies/Adverse Reactions: Allergies Allergy/AdvReac Type Severity Reaction Status Date / Time Penicillins Allergy Severe Respiratory Verified 07/27/21 15:24 bacitracin Allergy Mild Hives Verified 07/27/21 15:24 [From Neosporin ([id number])] bacitracin zinc * Allergy Mild Itching Verified 07/27/21 15:24 [From Neosporin ([id number])] neomycin sulfate * Allergy Mild Itching Verified 07/27/21 15:24 [From Neosporin ([id number])] lamotrigine Allergy Itching Verified 07/27/21 15:24 sumatriptan [From Imitrex] Allergy Unknown Verified 07/27/21 15:24 venom-honey bee Allergy Unknown Verified 07/27/21 15:24 [bee venom (honey bee)] ciprofloxacin AdvReac Emesis Verified 07/27/21 15:24 doxycycline AdvReac Nausea Verified 07/27/21 15:24 - Social History Does the pt smoke?: No Smoking Status: Former smoker Does the pt drink ETOH?: No Does the pt have substance abuse?: No - Immunizations Immunizations are current?: Yes - POLST Patient has POLST: Yes POLST Status: DNR PD ED PE NORMAL - Vitals Vital signs reviewed: Yes (Bradycardic tachypneic and hypotensive) - General General: Well developed/nourished, Other (56-year-old female with moaning breaths has a gaze deviated superiorly and laterally bilaterally she is unresponsive to verbal or painful stimulus.) - HEENT HEENT: Atraumatic, Other (The right eye is deviated laterally and superiorly the left eye is deviated laterally and superiorly mucous membranes are dry) - Neck Neck: Supple, no meningeal sign - Cardiac Cardiac: No murmur, Other (Tachycardic with a rate of 116) - Respiratory Respiratory: Other (The patient has rapid morning respirations.) - Abdomen Abdomen: Soft, Non tender - Derm Derm: Normal color, Warm and dry, No rash - Extremities Extremities: No edema, Other (There are multiple surgical scars the left hipThe left foot moves continuously. The right foot right arm and left arm are flaccid) - Neuro Eye Opening: None Motor: None Verbal: Incomprehensible GCS Score: 4 Results - Vitals Vitals: Vital Signs - 24 hr 07/27/21 07/27/21 07/27/21 15:24 15:27 16:02 Temperature 36.5 C Heart Rate 36 L 125 H 124 H Respiratory 36 H 42 H 45 H Rate Blood Pressure 86/59 L 60/23 L 106/71 O2 Saturation 99 98 65 L 07/27/21 07/27/21 07/27/21 16:30 17:27 17:31 Temperature 36.2 C L Heart Rate 121 H 109 H 108 H Respiratory 38 H 40 H 40 H Rate Blood Pressure 121/48 L 51/31 L 97/85 H O2 Saturation 92 100 100 07/27/21 18:10 Temperature Heart Rate 86 Respiratory 37 H Rate Blood Pressure 66/11 L O2 Saturation 99 Oxygen O2 Source Non-rebreather mask Oxygen Flow Rate 15 - Labs Labs: Laboratory Tests 07/27/21 07/27/21 07/27/21 15:59 15:59 15:59 WBC 21.3 H RBC 6.01 H Hgb 15.7 Hct 48.5 H MCV 80.7 L MCH 26.1 L MCHC 32.4 RDW 14.2 Plt Count 470 H MPV 9.5 Neut # (Auto) Not Reportable Lymph # (Auto) Not Reportable [place] # (Auto) Not Reportable Eos # (Auto) Not Reportable Baso # (Auto) Not Reportable Absolute Nucleated RBC Not Reportable Total Counted 100 Band Neuts % (Manual) 7 Abnorm Lymph % (Manual) 0 Nucleated RBC % Not Reportable Neutrophils # (Manual) 19.2 H Lymphocytes # (Manual) 0.9 L Monocytes # (Manual) 1.3 H Eosinophils # (Manual) 0.0 Basophils # (Manual) 0.0 Differential Comment MANUAL DIFFERENTIAL Manual Slide Review Indicated Platelet Estimate INCREASED (>450,000) Platelet Morphology NORMAL APPEARANCE RBC Morph Micro Appear NORMAL APPEARANCE Sodium 137 Potassium 3.1 L Chloride 105 Carbon Dioxide 8 L* Anion Gap 24.0 H BUN 20 Creatinine 2.9 H Estimated GFR (MDRD) 17 L Glucose 145 H Lactic Acid 5.2 H* Calcium 10.4 H Total Bilirubin 1.7 H AST 494 H ALT 145 H Alkaline Phosphatase 174 H Total Protein 9.0 H Albumin 4.9 Globulin 4.1 Albumin/Globulin Ratio 1.2 Lipase 47 - Rads (name of study) CT head Radiology: Prelim report reviewed (Impression: 1. No definite acute intracranial abnormality.), EMP read indepedently, See rad report Procedures - General procedure General procedure: I personally yomaira blood out of the right femoral vein. After prep with chlorhexidine a 50 mL syringe was used with an 18-gauge needle to obtain blood. PD MEDICAL DECISION MAKING - ED course Complexity details: reviewed old records, reviewed results, re-evaluated patient, considered differential, d/w family ED course: 56-year-old female with a catastrophic event resulting in an unresponsive state with rapid breathing. She appears acidotic she has vomited, appears volume contracted and has flaccid right side with deviated gazed. She arrives to the ED comatose with GCS giving one point for moaning to equal 4. She is a DNI, DNR and her daughter accompanies her here today with desire to abide by her mothers wishes. Here we find the patient comatose and laboring to breath with vomit over her face. IV access has been achieved and saline is infused. Orders have been made for the patient to get both dilantin and keppra IV. Dr. Alamo is consulted in the case and graciously agrees to care for the patient in the hospital with a plan to provide supportive care short of intubation or chest compressions. In the ED we were able to provide one liter of saline and keppra and dilantin as well as simple mask oxygen. Her peripheral IV has infiltrated and she received the keppra and dilantin by IO prior to transfer to CCU. Departure - Departure Disposition: 66 [facility] DC/Xfer Clinical Impression: Acute kidney injury Cerebrovascular accident (CVA) Qualifiers: CVA mechanism: unspecified Qualified Code(s): I63.9 - Cerebral infarction, unspecified Nausea and vomiting Qualifiers: Vomiting type: unspecified Qualified Code(s): R11.2 - Nausea with vomiting, unspecified
[2021-07-27] MEDS ORDERED: levETIRAcetam INJ 1,000 MG in SODIUM CHLORIDE 0.9% 100ML 100 ML IV STA (17:10)
[2021-07-27] MEDS ORDERED: PHENYTOIN 100 MG/2 ML VIAL IVP STA (17:10)
[2021-07-27 18:23] LABS: CORONAVIRUS 229E-RESP PCR NOT DETECTED; CORONAVIRUS HKU1-RESP PCR NOT DETECTED
[2021-07-27 18:24] LABS: B. PARAPERTUSSIS- RESP PCR PAN NOT DETECTED; B. PERTUSSIS- RESP PCR PANEL NOT DETECTED; C. PNEUMONIAE- RESP PCR PANEL NOT DETECTED; CORONAVIRUS NL63-RESP PCR NOT DETECTED; CORONAVIRUS OC43-RESP PCR NOT DETECTED; HUMAN METAPNEUMOVIRUS NOT DETECTED; INFLUENZA A- RESP PCR PANEL NOT DETECTED; INFLUENZA B - RESP PCR PANEL NOT DETECTED; M. PNEUMONIAE- RESP PCR PANEL NOT DETECTED; PARAINFLUENZA VIRUS 1 NOT DETECTED; PARAINFLUENZA VIRUS 2 NOT DETECTED; PARAINFLUENZA VIRUS 3 NOT DETECTED; PARAINFLUENZA VIRUS 4 NOT DETECTED; RHINOVIRUS/ENTEROVIRUS NOT DETECTED; RSV- RESP PCR PANEL NOT DETECTED; SARS-CoV-2 -RESP PCR PANEL NOT DETECTED
[2021-07-27] MEDS ORDERED: SODIUM CHLORIDE 0.9% 1,000 ML IV SCH (19:00)
[2021-07-27 19:59] VITALS: BP 153/117
[2021-07-27] MEDS ORDERED: SODIUM CHLORIDE FLUSH 0.9% 10 ML SYRINGE IVP PRN (20:16)
[2021-07-27] MEDS ORDERED: MORPHINE 2 MG/ML CARPUJECT IVP PRN (20:32)
[2021-07-27] MEDS ORDERED: LORazepam 2 MG/ML VIAL IVP PRN (20:32)
--- NOTE | 2021-07-27 20:32 | HISTORY & PHYSICAL EXAMINATION ---
Chief Complaint - Chief Complaint Chief Complaint: altered mental status History of Present Illness - Admitted From Admitted From:: [facility] ED - History Obtained From Records Reviewed: yes History obtained from: daughter Exam Limitations: unresponsive - History of Present Illness HPI Comment/Other: Patient is a 56-year-old female with medical history significant for seizures, chronic osteomyelitis of the left hip and hypertension who was brought to the ED by EMS unresponsive with a GCS of 3.Her daughter tried to reach her today by phone and she did not answer. She thought she was probably asleep. She went to the house later in the afternoon and found her unresponsive breathing rapidly with vomit all over. It is reported that the patient had a deviated gaze and right-sided flaccidity. Her daughter reports a previous occurrence of unresponsiveness when the patient had an intracranial hemorrhage. At the time she was intubated and transferred to [facility] where she was comatose for 3 days and then woke up. The patient was initially presented for admission for further treatment. Upon presentation to bedside the patient was nonresponsive to tactile or verbal stimuli. She was tachypneic with resp rate in the 30's and hypoxic with O2Sat as low as 60%%. Her extremities were very cold and cyanotic. Right-sided gaze was again noted. Upon further discussion with her daughter about goals of care, she explained that her mother had been very clear about not being intubated. I highlighted that given the patient's respiratory status she was likely to deteriorate in a very short period of time. After consideration the daughter requested comfort measures. 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: Ovarian cancer : reports: Incontinence, Chronic bladder infection, Renal insuffiency, Nocturia, Frequency, Kidney stones, Other HEENT: reports: Chronic sinusitis Psych: reports: Depression, Bipolar disorder Musculoskeletal: reports: Osteoarthritis, Osteoporosis, Fatigue, Chronic back pain, Other Derm: reports: Psoriasis MRSA Hx?: Yes - Past Surgical History General: reports: Cholecystectomy, Appendectomy Ortho: reports: Hip replacement, Spine surgery /BIOFUELS PROCESSING TECHNICIAN: reports: 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, Oophrectomy - Family & Social History Family History: Mother: Alive and Well, Father: , CAD Family History Comment/Other: Her mother has a history of cervical cancer and heart disease with CABG. Her father from heart disease. Living Situation: With family Social History Notes: She lives at home with her daughter and son-in-law. She smoked a pack a day for about 15 years but quit 2 years ago. She does not drink alcohol. - Substance History Use: Uses substance without health or social issues: NONE - POLST Patient has POLST: Yes POLST Status: DNR Meds/Allgy - Home Medications Home Medications: Ambulatory Orders Medication Instructions Recorded Confirmed Omeprazole [PriLOSEC] 20 mg PO BID 02/09/18 07/27/21 Cetirizine [ZyrTEC] 10 mg PO DAILY 09/06/18 07/27/21 Melatonin 10 mg PO QPM PRN 09/06/18 07/27/21 diphenhydrAMINE [Benadryl] 50 mg PO QID PRN 09/14/18 07/27/21 Spironolactone 50 mg PO BID 04/09/19 07/27/21 Butalb/Acetaminophen/Caffeine 1 cap PO Q6HR PRN 02/20/20 07/27/21 [Gbsesj-Snuisfop-Ofjh 50-300-40] Ondansetron [Ondansetron Odt] 8 mg PO QID 05/16/20 07/27/21 levETIRAcetam [Roweepra] 1,500 mg PO BID 06/13/20 07/27/21 Atorvastatin [Lipitor] 20 mg PO QPM 12/25/20 07/27/21 Cholecalciferol (Vitamin D3) 1,250 mcg PO .QWEEK 12/25/20 07/27/21 [Vitamin D3] Clobetasol 0.05% Oint [Temovate 1 appful TOP TID PRN 12/25/20 07/27/21 0.05% Oint] Desonide 1 appful TOP BID 12/25/20 07/27/21 Magnesium Citrate 100 mg PO DAILY 12/25/20 07/27/21 carvediloL [Carvedilol] 25 mg PO Q12H 03/11/21 07/27/21 amLODIPine [Norvasc] 10 mg ORAL DAILY 05/16/21 07/27/21 methocarbamoL [Robaxin] 1,000 mg PO QID 05/16/21 07/27/21 Potassium Citrate [Potassium 30 meq PO DAILY 06/05/21 07/27/21 Citrate ER] Prochlorperazine Maleate 10 mg PO QID PRN 06/05/21 07/27/21 [Compazine] Sucralfate [Carafate] 1 gm PO ACHS #60 tablet 06/14/21 07/27/21 Oxycodone HCl/Acetaminophen 0.5 - 1 tab PO Q4HR PRN 07/27/21 07/27/21 [Percocet 10-325 mg Tablet] Potassium Citrate [Potassium 30 meq PO HS 07/27/21 07/27/21 Citrate ER] Pregabalin [Lyrica] 75 mg PO TID 07/27/21 07/27/21 - Allergies Allergies/Adverse Reactions: Allergies Allergy/AdvReac Type Severity Reaction Status Date / Time Penicillins Allergy Severe Respiratory Verified 07/27/21 15:24 bacitracin Allergy Mild Hives Verified 07/27/21 15:24 [From Neosporin ([id number])] bacitracin zinc * Allergy Mild Itching Verified 07/27/21 15:24 [From Neosporin ([id number])] neomycin sulfate * Allergy Mild Itching Verified 07/27/21 15:24 [From Neosporin ([id number])] lamotrigine Allergy Itching Verified 07/27/21 15:24 sumatriptan [From Imitrex] Allergy Unknown Verified 07/27/21 15:24 venom-honey bee Allergy Unknown Verified 07/27/21 15:24 [bee venom (honey bee)] ciprofloxacin AdvReac Emesis Verified 07/27/21 15:24 doxycycline AdvReac Nausea Verified 07/27/21 15:24 Review of Systems - Other Findings Other Findings: A 12 point review of system is very limited because the patient is currently altered/comatose and unable to respond. Exam - Vital Signs Vital Signs: Vital Signs x48h Temp Pulse Resp BP Pulse Ox 07/27/21 20:00 91 36 H 153/117 H 80 L 07/27/21 19:30 92 32 H 153/117 H 94 07/27/21 19:08 103 H 36 H 187/114 H 99 07/27/21 18:51 104 H 36 H 71/13 L 89 L 07/27/21 18:10 86 37 H 66/11 L 99 07/27/21 17:31 36.2 C L 108 H 40 H 97/85 H 100 07/27/21 17:27 109 H 40 H 51/31 L 100 07/27/21 16:30 121 H 38 H 121/48 L 92 07/27/21 16:02 124 H 45 H 106/71 65 L 07/27/21 15:27 125 H 42 H 60/23 L 98 07/27/21 15:24 36.5 C 36 L 36 H 86/59 L 99 - Physical Exam General Appearance: positive: Severe distress, Other (Not oriented to self, time or reason). negative: Alert Eyes Bilateral: positive: PERRL, EOMI, Other (right sided gaze) ENT: positive: Pharynx nml Neck: positive: No JVD Respiratory: positive: Rhonchi, Other (severe resp distress, tachypnea) Cardiovascular: positive: Regular rate & rhythm Abdomen: positive: Non-tender, No distention. negative: Guarding, Rebound Back: positive: Nml inspection Skin: positive: No rash, Cyanosis, Other (Extremities cold to touch. Muttling in upper extremities bilaterally) Extremities: positive: No pedal edema, Other (Extremities cold to touch. Muttling in upper extremities bilaterally) Neurologic/Psychiatric: positive: Other (Comatose. GCS 3). negative: Disoriented to person, Disoriented to place, Disoriented to time Conclusion/Plan - Problem List (1) Encephalopathy Conclusion/Plan: Patient is comatose with a GCS of 3. Etiology undetermined. Seizure suspected. CT of the brain was negative for any acute intracranial process. Patient was given a dose of Keppra via IO in the ED. After discussion with the patient's daughter the patient was placed on comfort measures. (2) Acute respiratory failure with hypoxia Conclusion/Plan: It is suspected that the patient aspirated secondary to potential seizure. CT of the brain without contrast was negative for any acute intracranial process. After discussion with the patient's daughter at bedside who reiterated that her mother's wishes were to be DNR, the patient was made comfort measures. At bedside the patient's oxygen saturation was as low as 69%. She was tachypneic with a respiratory rate in the 30s. She was unresponsive to tactile or verbal stimuli. Her extremities were cold and cyanotic. Lactic acid was 5.2 and white blood cell count 21.3. Taking this clinical picture into consideration it was concluded that the patient is eminently dying. (3) Seizure Conclusion/Plan: On keppra Given keppra, phenytoin and ativan in the ED - Lab Results Fish Bones: 07/27/21 15:59 07/27/21 15:59 Core Measures - Anticipated LOS I expect patient to be DC'd or transferred within 96 hours.: Yes - DVT/VTE - Prophylaxis VTE/DVT Device ordered at admit?: No VTE/DVT Prophylaxis med ordered at admit?: No
[2021-07-27] MEDS ORDERED: SCOPOLAMINE PATCH TOP SCH (21:00)
--- NOTE | 2021-07-27 21:28 | DISCHARGE SUMMARY ---
Discharge Summary Admit Date: 07/27/21 Discharge Date: 07/27/21 Discharging Provider: Florence Stevenson Primary Care Provider: Leo Aeljandro Code Status: Do Not Attempt Resuscitation Discharge Disposition: 20 - DIAGNOSES Admission Diagnoses: Encephalopathy Acute respiratory failure with hypoxia Seizure Discharge Diagnoses with Status of Each Condition: Encephalopathy: Patient Acute respiratory failure with hypoxia: Patient Seizure: Patient - HPI History of Present Illness: Patient is a 56-year-old female with medical history significant for seizures, chronic osteomyelitis of the left hip and hypertension who was brought to the ED by EMS unresponsive with a GCS of 3. Her daughter tried to reach her today by phone and she did not answer. She thought she was probably asleep. She went to the house later in the afternoon and found her unresponsive breathing rapidly with vomit all over. It is reported that the patient had a deviated gaze and right-sided flaccidity. Her daughter reports a previous occurrence of unresponsiveness when the patient had an intracranial hemorrhage 5 years ago. At the time she was intubated and transferred to [facility] where she was comatose for 3 days and then woke up. The patient was initially presented for admission for further treatment. Upon presentation to bedside the patient was nonresponsive to tactile or verbal stimuli. She was tachypneic with resp rate in the 30's and hypoxic with O2Sat as low as 69%. Her extremities were very cold and cyanotic. Right-sided gaze was again noted. Upon further discussion with her daughter about goals of care, she explained that her mother had been very clear about not being intubated. I highlighted that given the patient's respiratory status she was likely to deteriorate in a very short period of time. After consideration the daughter requested comfort measures. - HOSPITAL COURSE Hospital Course: Shortly after the transfer from the emergency department to the medical/surgical floor it was brought to my attention that the patient was unresponsive. Upon presentation to bedside the patient was nonresponsive to tactile verbal stimuli. Carotid and radial pulses were absent bilaterally. There were no heart or breath sounds on auscultation. Pupils were fixed dilated and unreactive to light. The patient was pronounced at 3 PM on 07/27/2021. Her daughter who was in the waiting room at the time was notified. - ALLERGIES Allergies/Adverse Reactions: Allergies Allergy/AdvReac Type Severity Reaction Status Date / Time Penicillins Allergy Severe Respiratory Verified 07/27/21 15:24 bacitracin Allergy Mild Hives Verified 07/27/21 15:24 [From Neosporin ([id number])] bacitracin zinc * Allergy Mild Itching Verified 07/27/21 15:24 [From Neosporin ([id number])] neomycin sulfate * Allergy Mild Itching Verified 07/27/21 15:24 [From Neosporin ([id number])] lamotrigine Allergy Itching Verified 07/27/21 15:24 sumatriptan [From Imitrex] Allergy Unknown Verified 07/27/21 15:24 venom-honey bee Allergy Unknown Verified 07/27/21 15:24 [bee venom (honey bee)] ciprofloxacin AdvReac Emesis Verified 07/27/21 15:24 doxycycline AdvReac Nausea Verified 07/27/21 15:24 - MEDICATIONS Home Medications: Ambulatory Orders Medication Instructions Recorded Confirmed Omeprazole [PriLOSEC] 20 mg PO BID 02/09/18 07/27/21 Cetirizine [ZyrTEC] 10 mg PO DAILY 09/06/18 07/27/21 Melatonin 10 mg PO QPM PRN 09/06/18 07/27/21 diphenhydrAMINE [Benadryl] 50 mg PO QID PRN 09/14/18 07/27/21 Spironolactone 50 mg PO BID 04/09/19 07/27/21 Butalb/Acetaminophen/Caffeine 1 cap PO Q6HR PRN 02/20/20 07/27/21 [Pddlvt-Lwotsxlx-Rezl 50-300-40] Ondansetron [Ondansetron Odt] 8 mg PO QID 05/16/20 07/27/21 levETIRAcetam [Roweepra] 1,500 mg PO BID 06/13/20 07/27/21 Atorvastatin [Lipitor] 20 mg PO QPM 12/25/20 07/27/21 Cholecalciferol (Vitamin D3) 1,250 mcg PO .QWEEK 12/25/20 07/27/21 [Vitamin D3] Clobetasol 0.05% Oint [Temovate 1 appful TOP TID PRN 12/25/20 07/27/21 0.05% Oint] Desonide 1 appful TOP BID 12/25/20 07/27/21 Magnesium Citrate 100 mg PO DAILY 12/25/20 07/27/21 carvediloL [Carvedilol] 25 mg PO Q12H 03/11/21 07/27/21 amLODIPine [Norvasc] 10 mg ORAL DAILY 05/16/21 07/27/21 methocarbamoL [Robaxin] 1,000 mg PO QID 05/16/21 07/27/21 Potassium Citrate [Potassium 30 meq PO DAILY 06/05/21 07/27/21 Citrate ER] Prochlorperazine Maleate 10 mg PO QID PRN 06/05/21 07/27/21 [Compazine] Sucralfate [Carafate] 1 gm PO ACHS #60 tablet 06/14/21 07/27/21 Oxycodone HCl/Acetaminophen 0.5 - 1 tab PO Q4HR PRN 07/27/21 07/27/21 [Percocet 10-325 mg Tablet] Potassium Citrate [Potassium 30 meq PO HS 07/27/21 07/27/21 Citrate ER] Pregabalin [Lyrica] 75 mg PO TID 07/27/21 07/27/21 - LABS Result Diagrams: 07/27/21 15:59 07/27/21 15:59 - TIME SPENT Time Spent in Discharge (Minutes): 15
--- NOTE | 2021-07-27 21:29 | Discharge Plan ---
Discharge Plan Problem Reviewed?: Yes Disposition: 20 No Smoking: If you smoke, Please STOP! Call for help. Follow-up with: EBONY GU DO [Primary Care Provider] -
--- NOTE | 2021-07-27 21:52 | XRAY Report ---
PROCEDURE: Chest 1 View X-Ray INDICATIONS: hypoxia, dyspnea, rhonchi TECHNIQUE: One view of the chest was acquired. COMPARISON: January 22, 2020 FINDINGS: Surgical changes and devices: None. Lungs and pleura: Reduced lung volumes are prominence of the bronchovascular markings. No consolidati on pleural effusions or pneumothorax. Mediastinum: Prominence of the common mediastinal silhouette, exaggerated by technique. Bones and chest wall: No suspicious bony lesions. Overlying soft tissues appear unremarkable. IMPRESSION: 1. Bibasilar atelectasis. Reviewed by: Dangelo Castellon MD on 07/27/2021 9:50 PM PST Approved by: Dangelo Castellon MD on 07/27/2021 9:50 PM PST Station ID: [id number]
[2021-07-28] MEDS ORDERED: SODIUM CHLORIDE FLUSH 0.9% 10 ML SYRINGE IVP SCH (01:00)
== END 2021-07-27 20:53 | disposition expired | DRG 70 ==
LOC: EDUNIT# → ED 15:14 → ICU 18:57 → MS2 20:24
PROVIDERS: ADMIT Internal Medicine; ATTEND Internal Medicine
DX: I63.9 Cerebral infarction, unspecified (principal); N17.9 Acute kidney failure, unspecified; R11.2 Nausea with vomiting, unspecified; G93.40 Encephalopathy, unspecified; R40.2432 Glasgow coma scale score 3-8, at arrival to emergency department; Z20.822 Contact with and (suspected) exposure to COVID-19; R40.20 Unspecified coma; J96.01 Acute respiratory failure with hypoxia; M86.68 Other chronic osteomyelitis, other site; G40.909 Epilepsy, unspecified, not intractable, without status epilepticus; R40.2430 Glasgow coma scale score 3-8, unspecified time; Z87.891 Personal history of nicotine dependence; Z86.73 Personal history of transient ischemic attack (TIA), and cerebral infarction without residual deficits; M32.9 Systemic lupus erythematosus, unspecified; I10 Essential (primary) hypertension; Z66 Do not resuscitate
CPT/HCPCS: 36415; 70450; 71045; 80053; 83605; 83690; 85025; 87040; 87631; 96365; 96375; 99285; J2060; 0202U; 82803; 85610